=== PATIENT | female | born 1955 | race Caucasian/White ===

== ENCOUNTER → 2017-03-31 | Outpatient (CLI) | payer BC | END | disposition home or self-care (01) | LOC: LABWHC1 12:55 | PROVIDERS: ATTEND Internal Medicine Critical Care Medicine | DX: J45.909 Unspecified asthma, uncomplicated (principal); R06.02 Shortness of breath; R05 Cough | CPT/HCPCS: 36415; 82785; 85008 ==

== ENCOUNTER 2017-04-06 13:40 | Inpatient (IN) | payer BC ==
[2017-04-06] MEDS ORDERED: IPRATROPIUM-ALBUTEROL 3 ML NEB INHALATION STA (15:06)
--- NOTE | 2017-04-06 15:10 | ED ---
SOB HPI - General Source: patient, RN notes reviewed Mode of arrival: ambulatory Limitations: no limitations <José Miguel Blanco - Last Filed: 04/06/17 17:25> <Checo Jarvis - Last Filed: 04/13/17 05:18> - General Chief Complaint: Shortness of Breath Stated Complaint: SOB Time Seen by Provider: 04/06/17 15:01 - History of Present Illness Initial Comments: 62-year-old female presents emergency Department chief complaint shortness breath. Patient did have increasing shortness of breath last week or so. She states that she's had problems with asthma in the past. Patient states she recently saw Dr. Wolf was diagnosed with severe bronchial asthma. Patient states she was given steroid shot, oral steroids and she is on multiple inhalers. She states that she's having more exertional shortness breath. Patient states that she's never had this is in the past. Patient has had history of Hodgkin's lymphoma, breast cancer. Patient had chemo and radiation. Patient denies fever, chills. She states she has had a dry cough. Patient denies any runny nose, sore throat. Patient states she is better at rest. She states she is short of breath even with walking down the hallway. Patient denies any chest pains this time. She has no cardiac history. Patient states she does take a water pill at this time. (José Miguel Blanco) - Related Data Home Medications Medication Instructions Recorded Confirmed ALPRAZolam [Xanax] 0.25 mg PO TID PRN 10/05/16 04/06/17 Budesonide-Formot 160-4.5 Mcg 2 puff INHALATION BID 10/05/16 04/06/17 [Symbicort 160-4.5 Mcg Inhaler] Cetirizine HCl [Zyrtec] 5 mg PO DAILY PRN 10/05/16 04/06/17 Levothyroxine Sodium [Synthroid] 100 mcg PO DAILY 10/05/16 04/06/17 Losartan [Cozaar] 25 mg PO HS 10/05/16 04/06/17 Metoprolol Succinate (ER) [Toprol 25 mg PO DAILY 10/05/16 04/06/17 XL] Montelukast [Singulair] 10 mg PO DAILY 10/05/16 04/06/17 Omeprazole [PriLOSEC] 40 mg PO BID 10/05/16 04/06/17 Sertraline [Zoloft] 100 mg PO DAILY 10/05/16 04/06/17 Simvastatin [Zocor] 40 mg PO HS 10/05/16 04/06/17 buPROPion [Wellbutrin] 300 mg PO DAILY 10/05/16 04/06/17 ARIPiprazole [Abilify] 2 mg PO DAILY 04/06/17 04/06/17 Albuterol Sulfate [Proair Hfa] 2 puff INHALATION Q6HR PRN 04/06/17 04/06/17 Amoxic-Pot Clav 875-125Mg 1 tab PO Q12HR 04/06/17 04/06/17 [Augmentin 875-125] Cyanocobalamin [Vitamin B-12] 500 mcg PO DAILY 04/06/17 04/06/17 Previous Rx's Medication Instructions Recorded Furosemide [Lasix] 20 mg PO DAILY #30 tab 04/08/17 Potassium Chloride ER [K-Dur 10] 10 meq PO DAILY #30 tab 04/08/17 guaiFENesin [Mucinex] 1,200 mg PO Q12HR #10 tablet.er 04/08/17 Allergies Allergy/AdvReac Type Severity Reaction Status Date / Time No Known Allergies Allergy Verified 04/06/17 15:57 Review of Systems ROS Other: All systems not noted in ROS Statement are negative. <José Miguel Blanco - Last Filed: 04/06/17 17:25> ROS Other: All systems not noted in ROS Statement are negative. <Checo Jarivs - Last Filed: 04/13/17 05:18> ROS Statement: Those systems with pertinent positive or pertinent negative responses have been documented in the HPI. Past Medical History Past Medical History: Asthma, Cancer, GERD/Reflux, Hyperlipidemia, Hypertension , Sleep Apnea/CPAP/BIPAP, Thyroid Disorder Additional Past Medical History / Comment(s): Hodgkins Lymphoma; Breast CA History of Any Multi-Drug Resistant Organisms: None Reported Past Surgical History: Adenoidectomy, Breast Surgery, Section, Hysterectomy, Orthopedic Surgery Additional Past Surgical History / Comment(s): Spleenectomy, Lapraotomy. Colonoscopy, EGD, Foot surgery Past Anesthesia/Blood Transfusion Reactions: No Reported Reaction Past Psychological History: Anxiety, Depression Smoking Status: Former smoker Past Alcohol Use History: Rare Past Drug Use History: None Reported - Past Family History Mother Family Medical History: No Reported History <José Miguel Blanco - Last Filed: 04/06/17 17:25> - Past Family History Mother Family Medical History: No Reported History Brother(s) Additional Family Medical History / Comment(s): MS <Checo Jarvis - Last Filed: 04/13/17 05:18> General Exam Limitations: no limitations General appearance: alert, in no apparent distress Head exam: Present: atraumatic, normocephalic, normal inspection ENT exam: Present: normal oropharynx Neck exam: Present: normal inspection, full ROM. Absent: tenderness, meningismus, lymphadenopathy Respiratory exam: Present: wheezes (faint). Absent: normal lung sounds bilaterally, respiratory distress, rales, rhonchi, stridor Cardiovascular Exam: Present: regular rate, normal rhythm, normal heart sounds. Absent: systolic murmur, diastolic murmur, rubs, gallop, clicks Back exam: Absent: CVA tenderness (R), CVA tenderness (L) Neurological exam: Present: alert, oriented X3, CN II-XII intact Skin exam: Present: warm, dry, intact, normal color. Absent: rash <José Miguel Blanco - Last Filed: 04/06/17 17:25> Medical Decision Making - Lab Data Result diagrams: 04/06/17 15:20 04/06/17 15:20 <José Miguel Blanco - Last Filed: 04/06/17 17:25> - Lab Data Result diagrams: 04/08/17 06:21 04/08/17 06:21 <Checo Jarvis - Last Filed: 04/13/17 05:18> - Medical Decision Making I saw this patient in conjunction with the physician credit control assistant. I performed independent history and physical exam. Agree with case management. (Checo Jarvis) - Lab Data Lab Results 04/06/17 04/06/17 04/06/17 Range/Units 15:20 15:20 15:20 WBC 14.6 H (3.8-10.6) k/uL RBC 4.16 (3.80-5.40) m/uL Hgb 11.7 (11.4-16.0) gm/dL Hct 35.6 (34.0-46.0) % MCV 85.6 (80.0-100.0) fL MCH 28.2 (25.0-35.0) pg MCHC 32.9 (31.0-37.0) g/dL RDW 15.3 (11.5-15.5) % Plt Count 480 H (150-450) k/uL Neutrophils % 68 % Lymphocytes % 23 % Monocytes % 6 % Eosinophils % 1 % Basophils % 0 % Neutrophils # 9.9 H (1.3-7.7) k/uL Lymphocytes # 3.3 (1.0-4.8) k/uL Monocytes # 0.9 (0-1.0) k/uL Eosinophils # 0.1 (0-0.7) k/uL Basophils # 0.0 (0-0.2) k/uL PT (9.0-12.0) sec INR (<1.1) APTT (22.0-30.0) sec D-Dimer (<0.60) mg/L FEU Sodium 138 (137-145) mmol/L Potassium 3.9 (3.5-5.1) mmol/L Chloride 100 (98-107) mmol/L Carbon Dioxide 28 (22-30) mmol/L Anion Gap 10 mmol/L BUN 17 (7-17) mg/dL Creatinine 0.70 (0.52-1.04) mg/dL Est GFR (MDRD) Af Amer >60 (>60 ml/min/1.73 sqM) Est GFR (MDRD) Non-Af >60 (>60 ml/min/1.73 sqM) Glucose 84 (74-99) mg/dL Calcium 9.8 (8.4-10.2) mg/dL Magnesium 2.2 (1.6-2.3) mg/dL Total Bilirubin 0.5 (0.2-1.3) mg/dL AST 30 (14-36) U/L ALT 40 (9-52) U/L Alkaline Phosphatase 81 (38-126) U/L Total Creatine Kinase 61 (30-135) U/L CK-MB (CK-2) 1.6 (0.0-2.4) ng/mL CK-MB (CK-2) Rel Index 2.6 Troponin I <0.012 (0.000-0.034) ng/mL NT-Pro-B Natriuret Pep pg/mL Total Protein 6.8 (6.3-8.2) g/dL Albumin 3.9 (3.5-5.0) g/dL 04/06/17 04/06/17 Range/Units 15:20 15:20 WBC (3.8-10.6) k/uL RBC (3.80-5.40) m/uL Hgb (11.4-16.0) gm/dL Hct (34.0-46.0) % MCV (80.0-100.0) fL MCH (25.0-35.0) pg MCHC (31.0-37.0) g/dL RDW (11.5-15.5) % Plt Count (150-450) k/uL Neutrophils % % Lymphocytes % % Monocytes % % Eosinophils % % Basophils % % Neutrophils # (1.3-7.7) k/uL Lymphocytes # (1.0-4.8) k/uL Monocytes # (0-1.0) k/uL Eosinophils # (0-0.7) k/uL Basophils # (0-0.2) k/uL PT 9.7 (9.0-12.0) sec INR 0.9 (<1.1) APTT 22.4 (22.0-30.0) sec D-Dimer 0.65 H (<0.60) mg/L FEU Sodium (137-145) mmol/L Potassium (3.5-5.1) mmol/L Chloride (98-107) mmol/L Carbon Dioxide (22-30) mmol/L Anion Gap mmol/L BUN (7-17) mg/dL Creatinine (0.52-1.04) mg/dL Est GFR (MDRD) Af Amer (>60 ml/min/1.73 sqM) Est GFR (MDRD) Non-Af (>60 ml/min/1.73 sqM) Glucose (74-99) mg/dL Calcium (8.4-10.2) mg/dL Magnesium (1.6-2.3) mg/dL Total Bilirubin (0.2-1.3) mg/dL AST (14-36) U/L ALT (9-52) U/L Alkaline Phosphatase (38-126) U/L Total Creatine Kinase (30-135) U/L CK-MB (CK-2) (0.0-2.4) ng/mL CK-MB (CK-2) Rel Index Troponin I (0.000-0.034) ng/mL NT-Pro-B Natriuret Pep 2010 pg/mL Total Protein (6.3-8.2) g/dL Albumin (3.5-5.0) g/dL 04/06/17 16:45 EKG performed at 15:39 left bundle-branch block normal sinus rhythm with a rate of 93 FL interval 176 QRS duration 154 QT/QTC 42/4-99 (José Miguel Blanco) Disposition <José Miguel Blanco - Last Filed: 04/06/17 17:25> <Checo Jarvis - Last Filed: 04/13/17 05:18> Clinical Impression: Congestive heart failure, Exertional shortness of breath Disposition: ADMITTED IP TO THIS [facility] Condition: Stable
[2017-04-06 15:38] LABS: Basophils % (A) 0 %; CH 28.2; CHCM 33.1; Eosinophils # (A) 0.1 k/uL (0-0.7); Eosinophils % (A) 1 %; HCT 35.6 % (34.0-46.0); HDW 2.84; HGB 11.7 gm/dL (11.4-16.0); Luc # (Auto) 0.26; Luc % (Auto) 2; Lymphocytes # (A) 3.3 k/uL (1.0-4.8); Lymphocytes % (A) 23 %; MCH 28.2 pg (25.0-35.0); MCHC 32.9 g/dL (31.0-37.0); MCV 85.6 fL (80.0-100.0); Mean Platelet Volume 6.3; Monocytes # (A) 0.9 k/uL (0-1.0); Monocytes % (A) 6 %; Neutrophils # (A) 9.9 k/uL (1.3-7.7); Neutrophils % (A) 68 %; RBC 4.16 m/uL (3.80-5.40); RDW 15.3 % (11.5-15.5); WBC 14.6 k/uL (3.8-10.6); WBC (Perox) 14.58
[2017-04-06 15:48] LABS: INR 0.9 (<1.1); Partial Thromboplastin Time 22.4 sec (22.0-30.0); Prothrombin Time 9.7 sec (9.0-12.0)
[2017-04-06 15:55] LABS: ALT 40 U/L (9-52); AST 30 U/L (14-36); Alkaline Phosphatase 81 U/L (38-126); Anion Gap 10 mmol/L; Blood Urea Nitrogen 17 mg/dL (7-17); Calcium 9.8 mg/dL (8.4-10.2); Carbon Dioxide 28 mmol/L (22-30); Chloride 100 mmol/L (98-107); Creatine Kinase 61 U/L (30-135); Glucose 84 mg/dL (74-99); Magnesium 2.2 mg/dL (1.6-2.3); Non-African American GFR(MDRD) >60 (>60 ml/min/1.73 sqM); Potassium 3.9 mmol/L (3.5-5.1); Sodium 138 mmol/L (137-145); Total Bilirubin 0.5 mg/dL (0.2-1.3); Total Protein 6.8 g/dL (6.3-8.2)
[2017-04-06] MEDS ORDERED: RX INFO: IV CONTRAST WAS GIVEN 1 EACH MISC MISCELLANE PRN (15:58)
[2017-04-06 16:08] LABS: Creatine Kinase MB 1.6 ng/mL (0.0-2.4); Troponin I <0.012 ng/mL (0.000-0.034)
--- NOTE | 2017-04-06 16:11 | XR ---
EXAMINATION TYPE: XR chest 2V DATE OF EXAM: 04/06/2017 4:06 PM COMPARISON: 05/11/2016 HISTORY: 62-year-old female with shortness of breath, difficulty breathing. Technologist provides add itional history of lung scar tissue from Hodgkin's disease. TECHNIQUE: PA and lateral views FINDINGS: The heart remains upper limits of normal in size. As regards calcifications. Calcified mediastinal, subcarinal, and hilar lymph nodes are redemonstrate d and could reflect prior granulomatous disease or treated lymphoma. Diffuse interstitial prominence is unchanged. Surgical clips in the left upper quadrant. No consolidation or pleural effusion. IMPRESSION: 1. Calcified mediastinal and hilar lymph nodes code reflect prior granulomatous disease or treated ly mphoma. 2. There are chronic parenchymal changes without acute process seen. Given the interstitial prominenc e and patient's symptoms, correlate to exclude mild CHF.
--- NOTE | 2017-04-06 16:41 | CT ---
EXAMINATION TYPE: CT chest angio for PE DATE OF EXAM: 04/06/2017 4:20 PM COMPARISON: 01/01/2011 HISTORY: 62-year-old female with left sided chest pain and Shortness of breath. History from prior re port states Hodgkin's lymphoma and left-sided breast cancer. TECHNIQUE: Contiguous axial scanning of the chest performed with IV Contrast, patient injected with 1 00 mL of Omnipaque 300. Coronal and sagittal MIP reconstructions performed. CT DLP: 352.4 mGycm Automated exposure control for dose reduction was used. FINDINGS: The patient's right-sided subpectoral implant is collapsed. Left-sided breast prosthesis redemonstrat ed. Heart is upper limits of normal in size with trace basilar pericardial fluid. Coronary vessel calcifi cations are present in remarkable for coronary artery disease. Mild atherosclerotic arch calcifications with bovine configuration to the aortic arch. There is satisfactory opacification of the pulmonary tail system, there is respiratory motion limitin g the exam. No large central or lobar pulmonary embolus. No definite pulmonary embolus to the segment al level. Diffuse interstitial prominence with bronchial wall thickening and some cicatricial atelectasis along the left suprahilar region. Volume loss and focal opacity superior segment left lower lobe unchange d from 2011 suggesting scarring, possible posttreatment change relating to the radiation port. 8 mm left apical pulmonary nodule was present on the 2011 exam but measured only 5 mm at that time. A 4 mm subpleural pulmonary nodule peripheral left upper lobe axial image 26 not clearly seen on prio r exam. Additional scattered pulmonary nodules measuring up to 8 mm are unchanged. Some patchy medial bibasilar areas of groundglass are increased in the interval. Calcified granulomas within the mediastinum and right hilum. Small paraesophageal lymph nodes measure up to 8 mm, axial image 86 but are increased from 2011 as ar e left para-aortic lymph nodes currently measuring 8 mm versus 6 monitors, previously. Visualized upper abdomen show surgical clips along the left upper quadrant. Bones: No osseous destructive process. IMPRESSION: 1. SOME RESPIRATORY MOTION LIMITING THE EVALUATION. NO DEFINITE PULMONARY EMBOLUS TO THE SEGMENTAL LE MATHEW. 2. INCREASING PATCHY MEDIAL BIBASILAR OPACITIES. CORRELATE FOR POSSIBLE ETIOLOGIES SUCH PROGRESSIV E FIBROSIS FROM 2011 VERSUS ACUTE PNEUMONITIS. 3. SCATTERED PULMONARY NODULES MEASURING UP TO 8 MM, MOST OF WHICH ARE STABLE. AN 8 MM LEFT APICAL PU LMONARY NODULE IS INCREASED IN SIZE PREVIOUSLY MEASURING 5 MM IN 2011 AND A 4 MM SUBPLEURAL PULMONARY NODULE IN THE LEFT UPPER LOBE MAY BE NEW. 3. A COUPLE PROMINENT LYMPH NODES IN THE POSTERIOR MEDIASTINUM, PARAESOPHAGEAL AND PARAAORTIC REGION MEASURE UP TO 8 MM AND ARE SLIGHTLY INCREASED IN SIZE. 4. THESE CAN BE REASSESSED AT 6 MONTH FOLLOW-UP. 5. OTHER CHRONIC PARENCHYMAL CHANGES, SUSPECTED CHRONIC BRONCHITIS/ASTHMA AND POSTTREATMENT CHANGE IS REDEMONSTRATED. 6. COLLAPSED RIGHT BREAST IMPLANT.
--- NOTE | 2017-04-06 16:49 | US ---
EXAMINATION TYPE: US extremity nonvasc mass LT DATE OF EXAM: 04/06/2017 4:30 PM COMPARISON: NONE CLINICAL HISTORY: 62-year-old female with swelling at the left antecubital fossa. Steroid shot given in left arm, not at area of interest. TECHNIQUE: Targeted sonographic examination at the site of clinical symptoms left antecubital space. FINDINGS: Terminal Block Assembler notes: Soft tissue tissue swelling in Left antecubital space. Patent basilic and other ve ssels identified, no mass effect seen. No indication of clot in area, soft tissue swelling shows no r edness and is not painful. No specific abnormality identified IMPRESSION: Targeted scanning in the left antecubital fossa at the site of swelling shows no specific sonographic abnormality. Follow-up can be considered if symptoms worsen.
[2017-04-06] MEDS ORDERED: ALBUTEROL NEBULIZED 2.5 MG/3 ML INHALATION PRN (17:28)
[2017-04-06] MEDS ORDERED: FUROSEMIDE 10 MG/ML 4 ML VIAL IV STA (17:28)
[2017-04-06] MEDS ORDERED: LORATADINE 10 MG TAB PO PRN (17:28)
[2017-04-06] MEDS: SYMBICORT 160-4.5 MCG INHALER INHALATION SCH (21:39)
[2017-04-06] MEDS: ATORVASTATIN 20 MG TAB PO SCH (22:58)
[2017-04-06] MEDS: LOSARTAN 25 MG TAB PO SCH (22:58)
[2017-04-06] MEDS: PANTOPRAZOLE 40 MG TABLET PO SCH (22:58)
[2017-04-07] MEDS: FUROSEMIDE 10 MG/ML 4 ML VIAL IV SCH ×2 (06:38→17:45)
[2017-04-07] MEDS: LEVOTHYROXINE 100 MCG TAB PO SCH (06:38)
[2017-04-07 07:46] LABS: Basophils # (A) 0.1 k/uL (0-0.2); Basophils % (A) 1 %; CH 27.4; CHCM 31.1; Eosinophils # (A) 0.3 k/uL (0-0.7); Eosinophils % (A) 3 %; HCT 37.9 % (34.0-46.0); HDW 2.65; HGB 12.2 gm/dL (11.4-16.0); Hypochromasia Slight; Luc # (Auto) 0.31; Luc % (Auto) 3; Lymphocytes % (A) 31 %; MCH 28.5 pg (25.0-35.0); MCHC 32.2 g/dL (31.0-37.0); MCV 88.4 fL (80.0-100.0); Mean Platelet Volume 6.6; Monocytes # (A) 0.7 k/uL (0-1.0); Monocytes % (A) 6 %; Neutrophils # (A) 7.2 k/uL (1.3-7.7); Neutrophils % (A) 57 %; RBC 4.29 m/uL (3.80-5.40); RDW 15.5 % (11.5-15.5); WBC 12.6 k/uL (3.8-10.6); WBC (Perox) 12.91
[2017-04-07 07:58] LABS: Anion Gap 13 mmol/L; Calcium 9.3 mg/dL (8.4-10.2); Carbon Dioxide 27 mmol/L (22-30); Chloride 99 mmol/L (98-107); Glucose 92 mg/dL (74-99); Non-African American GFR(MDRD) >60 (>60 ml/min/1.73 sqM); Sodium 139 mmol/L (137-145)
[2017-04-07] MEDS: SYMBICORT 160-4.5 MCG INHALER INHALATION SCH ×2 (07:59→21:09)
[2017-04-07 08:02] LABS: Blood Urea Nitrogen 16 mg/dL (7-17); Potassium 4.9 mmol/L (3.5-5.1)
[2017-04-07] MEDS: MONTELUKAST 10 MG TAB PO SCH (08:55)
[2017-04-07] MEDS: ALPRAZolam 0.25 MG TAB PO PRN ×2 (08:55→21:02)
[2017-04-07] MEDS: METOPROLOL SUCCINATE (ER) 25 MG TAB.ER.24H PO SCH (08:56)
[2017-04-07] MEDS: PANTOPRAZOLE 40 MG TABLET PO SCH ×2 (08:56→21:03)
[2017-04-07] MEDS: CYANOCOBALAMIN 500 MCG TAB PO SCH (08:56)
[2017-04-07] MEDS: SERTRALINE 100 MG TAB PO SCH (08:57)
[2017-04-07] MEDS: buPROPion XL 300 MG TAB.ER.24H PO SCH (09:53)
[2017-04-07 10:06] VITALS: BMI 30.2
[2017-04-07] MEDS ORDERED: IPRATROPIUM-ALBUTEROL 3 ML NEB INHALATION PRN (12:00)
--- NOTE | 2017-04-07 12:12 | P.HPIM ---
History of Present Illness H&P Date: 04/07/17 Chief Complaint: worsening shortness of breath this is a 62-year-old female with a known past medical history of asthma, Hodgkin's lymphoma, breast cancer with mastectomy, obstructive sleep apnea, cardiomyopathy, hypertension, hyperlipidemia and hypothyroidism. Patient reports having worsening shortness of breath over the last couple weeks. She was seen by her pack worker supervisor and started on Augmentin and prednisone for bronchitis and asthma exacerbation. Over the last couple a days she continued to have worsening shortness of breath noted that she was having difficulty talking during conversation because of her shortness of breath. She came into the emergency room for further evaluation and treatment she was noted to have elevated d-dimer CTA of the chest was negative for PE. It did show increasing patchy medial by basilar opacities to correlate for possible progressive fibrosis versus acute pneumonitis. There is also scattered pulmonary nodules measuring up to 8 mm most of which are stable. Also occult couple prominent lymph nodes in the posterior mediastinum. Both pulmonary and cardiology services have been consulted. Patient also was noted to have evidence of an acute CHF exacerbation BNP level was 2010 she was started on IV Lasix 40 mg every 12 hours. She also had some swelling in the left arm ultrasound of the arm was done and was found to be negative. Patient has noted some improvement in her breathing after the Lasix. She is still having a mild cough which is productive at times. She denies any fevers chills or sweats. Denies any nausea or vomiting denies any chest pain. Denies any bowel movement changes or urinary symptoms.she's been admitted to the hospital for CHF exacerbation Review of Systems physical HPI otherwise unremarkable Past Medical History Past Medical History: Asthma, Cancer, GERD/Reflux, Hyperlipidemia, Hypertension , Sleep Apnea/CPAP/BIPAP, Thyroid Disorder Additional Past Medical History / Comment(s): Hodgkins Lymphomastatus post chemo and radiation 1978; Breast CAstatus post mastectomy History of Any Multi-Drug Resistant Organisms: None Reported Past Surgical History: Adenoidectomy, Breast Surgery, Section, Hysterectomy, Orthopedic Surgery Additional Past Surgical History / Comment(s): Spleenectomy, Lapraotomy. Colonoscopy, EGD, Foot surgery, breast reconstruction Past Anesthesia/Blood Transfusion Reactions: No Reported Reaction Past Psychological History: Anxiety, Depression Smoking Status: Former smoker Past Alcohol Use History: Rare Past Drug Use History: None Reported - Past Family History Mother Family Medical History: No Reported History Brother(s) Additional Family Medical History / Comment(s): MS Medications and Allergies Home Medications Medication Instructions Recorded Confirmed Type ALPRAZolam [Xanax] 0.25 mg PO TID PRN 10/05/16 04/06/17 History Budesonide-Formot 160-4.5 Mcg 2 puff INHALATION BID 10/05/16 04/06/17 History [Symbicort 160-4.5 Mcg Inhaler] Cetirizine HCl [Zyrtec] 5 mg PO DAILY PRN 10/05/16 04/06/17 History Levothyroxine Sodium [Synthroid] 100 mcg PO DAILY 10/05/16 04/06/17 History Losartan [Cozaar] 25 mg PO HS 10/05/16 04/06/17 History Metoprolol Succinate (ER) [Toprol 25 mg PO DAILY 10/05/16 04/06/17 History Xl] Montelukast [Singulair] 10 mg PO DAILY 10/05/16 04/06/17 History Omeprazole [PriLOSEC] 40 mg PO BID 10/05/16 04/06/17 History Sertraline [Zoloft] 100 mg PO DAILY 10/05/16 04/06/17 History Simvastatin [Zocor] 40 mg PO HS 10/05/16 04/06/17 History buPROPion [Wellbutrin] 300 mg PO DAILY 10/05/16 04/06/17 History ARIPiprazole [Abilify] 2 mg PO DAILY 04/06/17 04/06/17 History Albuterol Sulfate [Proair Hfa] 2 puff INHALATION Q6HR PRN 04/06/17 04/06/17 History Amoxic-Pot Clav 875-125Mg 1 tab PO Q12HR 04/06/17 04/06/17 History [Augmentin 875-125] Cyanocobalamin [Vitamin B-12] 500 mcg PO DAILY 04/06/17 04/06/17 History Allergies Allergy/AdvReac Type Severity Reaction Status Date / Time No Known Allergies Allergy Verified 04/06/17 15:57 Physical Exam Vitals: Vital Signs Temp Pulse Pulse Resp BP BP Pulse Ox 04/07/17 11:32 97.3 F L 92 18 104/59 97 04/07/17 08:00 97.3 F L 100 18 115/61 95 04/07/17 03:20 97.5 F L 89 18 98/55 93 L 04/06/17 23:00 97.0 F L 98 18 97/50 95 04/06/17 20:30 97.9 F 92 18 110/51 95 04/06/17 20:11 97.8 F 96 18 137/65 96 Intake and Output 04/06/17 04/07/17 04/07/17 22:59 06:59 14:59 Intake Total 480 Output Total 440 773 1833 Balance -300 200 -1520 Intake: Oral 480 Output: Urine 385 801 9550 Other: Voiding Method Toilet # Voids 1 Weight 82 kg 80 kg 80 kg Patient Weight 04/08/17 06:59 Weight 80 kg Head normocephalic Neck supple Lungs clear to auscultation bilaterally no wheezing or crackles Heart regular rate and rhythm S1-S2, no rub or gallop Abdomen is soft nontender nondistended positive bowel sounds no hepatosplenomegaly Extremities no edema Neuro alert and orientated to 3 Results CBC & Chem 7: 04/07/17 07:20 04/07/17 07:20 Labs: Abnormal Lab Results - Last 24 Hours (Table) 04/07/17 Range/Units 07:20 WBC 12.6 H (3.8-10.6) k/uL Plt Count 475 H (150-450) k/uL Thrombosis Risk Factor Assmnt - Choose All That Apply Any of the Below Risk Factors Present?: Yes Each Factor Represents 1 point: Heart failure (<1month) Other Risk Factors: Yes Each Risk Factor Represents 2 Points: Age 61-74 years Thrombosis Risk Factor Assessment Total Risk Factor Score: 3 Thrombosis Risk Factor Assessment Level: Moderate Risk Assessment and Plan Plan: 1. Shortness of breath: Possibly related to congestive heart failure. However , CTA had shown increasing patchy medial bibasilar opacities to correlate for progressive fibrosis versus acute pneumonitis. Pulmonary service will be consulted. CTA negative for PE 2. Acute CHF exacerbation: Check echo. Continue IV Lasix 40 every 12 hours. Cardiology consulted. BNP 2009 3. recent bronchitis and asthma exacerbation. Has started antibiotic treatment outpatient. We'll resume her Augmentin and prednisone. Consult pulmonary service 4. History of Hodgkin's lymphoma completed chemo and radiation treatment 1978 5. History of breast cancer status post mastectomy 6. History of persistent asthma with recent exacerbation continue her prednisone taper. Resume her nebulizer treatments 7.essential hypertension continue her home medications 8. Hypothyroidism resume Synthroid 9. Hyperlipidemia continue Lipitor 10. Elevated platelets trending down continue to monitor GI prophylaxis Protonix and DVT prophylaxis Lovenox Time with Patient: Greater than 30 (Greater than 50% of the total time spent in counseling and coordination of care.I performed an examination of the patient and discussed their management with the physician Hybrid Corn Breeder. I have reviewed the Physician Hybrid Corn Breeder's notes and agree with the documented findings and plan of care)
[2017-04-07] MEDS: predniSONE 10 MG TAB PO SCH (12:41)
[2017-04-07] MEDS: ARIPiprazole 2 MG TAB PO SCH (12:41)
[2017-04-07] MEDS: IPRATROPIUM-ALBUTEROL 3 ML NEB INHALATION SCH ×3 (12:58→21:09)
--- NOTE | 2017-04-07 14:23 | P.CRDCN ---
History of Present Illness Consult date: 04/07/17 Requesting physician: Carly Doe Consult reason: shortness of breath Chief complaint: Progressively worsening shortness of breath History of present illness: This is a 62-year-old female who follows regularly with Dr. Jasso in the office. She has a known history of hyperlipidemia, nonischemic cardiomyopathy, hyperlipidemia, hypothyroidism, history of breast CA with prior mastectomy, aortic valve insufficiency, nonrheumatic, straight of Hodgkin's lymphoma and asthma. Patient presents to the hospital with symptoms of progressively worsening shortness of breath. She states that she had gone to see Dr. Archuleta as an outpatient, was initiated on antibiotics as well as steroids. She states in spite of that she progressively continued to get more and more short of breath even to the point where she couldn't speak long sentences without becoming extremely short of breath. X-ray was performed which revealed calcified mediastinal and hilar lymph nodes which could reflect prior granulomatous disease or treated lymphoma. There are chronic parenchymal changes without any acute process. Correlate to exclude mild congestive heart failure. CAT scan of the chest was performed which did not reveal evidence of a pulmonary embolism. Increasing patchy medial bibasilar obesities correlate for possible progressive fibrosis. Scattered pulmonary nodules measuring up to 8 mm, most of which are stable, an 8 mm left apical pulmonary nodule is increased in size previously measuring 5 mm in 2011 and 4 mm subpleural pulmonary nodule in the left upper lobe which may be new. A couple prominent lymph nodes in the posterior mediastinotomy noted. Paraesophageal and. Aortic measuring up to 8 mm slightly increased in size from previous. Venous duplex of the left antecubital negative for thrombus. Blood cell count 14.6, hemoglobin 11.7, d-dimer 0.6, potassium 4.9, BUN 16, creatinine 0.6. Mag level 2.2, troponin 0.012, BNP 2010. Blood pressure 108/56 with a heart rate in the 90s. Past Medical History Past Medical History: Asthma, Cancer, GERD/Reflux, Hyperlipidemia, Hypertension , Sleep Apnea/CPAP/BIPAP, Thyroid Disorder Additional Past Medical History / Comment(s): Hodgkins Lymphomastatus post chemo and radiation 1978; Breast CAstatus post mastectomy History of Any Multi-Drug Resistant Organisms: None Reported Past Surgical History: Adenoidectomy, Breast Surgery, Section, Hysterectomy, Orthopedic Surgery Additional Past Surgical History / Comment(s): Spleenectomy, Lapraotomy. Colonoscopy, EGD, Foot surgery, breast reconstruction Past Anesthesia/Blood Transfusion Reactions: No Reported Reaction Past Psychological History: Anxiety, Depression Smoking Status: Former smoker Past Alcohol Use History: Rare Past Drug Use History: None Reported - Past Family History Mother Family Medical History: No Reported History Brother(s) Additional Family Medical History / Comment(s): MS Medications and Allergies Home Medications Medication Instructions Recorded Confirmed Type ALPRAZolam [Xanax] 0.25 mg PO TID PRN 10/05/16 04/06/17 History Budesonide-Formot 160-4.5 Mcg 2 puff INHALATION BID 10/05/16 04/06/17 History [Symbicort 160-4.5 Mcg Inhaler] Cetirizine HCl [Zyrtec] 5 mg PO DAILY PRN 10/05/16 04/06/17 History Levothyroxine Sodium [Synthroid] 100 mcg PO DAILY 10/05/16 04/06/17 History Losartan [Cozaar] 25 mg PO HS 10/05/16 04/06/17 History Metoprolol Succinate (ER) [Toprol 25 mg PO DAILY 10/05/16 04/06/17 History Xl] Montelukast [Singulair] 10 mg PO DAILY 10/05/16 04/06/17 History Omeprazole [PriLOSEC] 40 mg PO BID 10/05/16 04/06/17 History Sertraline [Zoloft] 100 mg PO DAILY 10/05/16 04/06/17 History Simvastatin [Zocor] 40 mg PO HS 10/05/16 04/06/17 History buPROPion [Wellbutrin] 300 mg PO DAILY 10/05/16 04/06/17 History ARIPiprazole [Abilify] 2 mg PO DAILY 04/06/17 04/06/17 History Albuterol Sulfate [Proair Hfa] 2 puff INHALATION Q6HR PRN 04/06/17 04/06/17 History Amoxic-Pot Clav 875-125Mg 1 tab PO Q12HR 04/06/17 04/06/17 History [Augmentin 875-125] Cyanocobalamin [Vitamin B-12] 500 mcg PO DAILY 04/06/17 04/06/17 History Allergies Allergy/AdvReac Type Severity Reaction Status Date / Time No Known Allergies Allergy Verified 04/06/17 15:57 Physical Exam Vitals: Vital Signs Temp Pulse Pulse Resp BP BP Pulse Ox 04/07/17 13:16 94 04/07/17 12:58 96 18 04/07/17 11:32 97.3 F L 92 18 104/59 97 04/07/17 08:00 97.3 F L 100 18 115/61 95 04/07/17 03:20 97.5 F L 89 18 98/55 93 L 04/06/17 23:00 97.0 F L 98 18 97/50 95 04/06/17 20:30 97.9 F 92 18 110/51 95 04/06/17 20:11 97.8 F 96 18 137/65 96 Intake and Output 04/06/17 04/07/17 04/07/17 22:59 06:59 14:59 Intake Total 480 Output Total 614 344 5252 Balance -300 200 -1520 Intake: Oral 480 Output: Urine 048 882 1768 Other: Voiding Method Toilet # Voids 1 Weight 82 kg 80 kg 80 kg Patient Weight 04/08/17 06:59 Weight 80 kg PHYSICAL EXAMINATION: HEENT: Head is atraumatic, normocephalic. Pupils equal, round. Neck is supple. There is elevated jugular venous pressure. HEART EXAMINATION: Heart S1 and S2 systolic ejection murmur is heard, diastolic murmur also heard at the base. CHEST EXAMINATION: Lungs are clear with diminished air entry to bilateral bases. ABDOMEN: Soft, nontender. Bowel sounds are heard. No organomegaly noted. EXTREMITIES: 2+ peripheral pulses with trace evidence of peripheral edema and no calf tenderness noted. NEUROLOGIC patient is awake, alert and oriented -3. . Results 04/07/17 07:20 04/07/17 07:20 CBC 04/07/17 Range/Units 07:20 WBC 12.6 H (3.8-10.6) k/uL RBC 4.29 (3.80-5.40) m/uL Hgb 12.2 (11.4-16.0) gm/dL Hct 37.9 (34.0-46.0) % Plt Count 475 H (150-450) k/uL Comprehensive Metabolic Panel 04/07/17 Range/Units 07:20 Sodium 139 (137-145) mmol/L Potassium 4.9 (3.5-5.1) mmol/L Chloride 99 (98-107) mmol/L Carbon Dioxide 27 (22-30) mmol/L BUN 16 (7-17) mg/dL Creatinine 0.65 (0.52-1.04) mg/dL Glucose 92 (74-99) mg/dL Calcium 9.3 (8.4-10.2) mg/dL Current Medications Generic Name Dose Route Start Last Admin Trade Name Freq PRN Reason Stop Dose Admin Albuterol/Ipratropium 3 ml 04/07/17 12:15 04/07/17 12:58 Duoneb 0.5 Mg-3 Mg/3 Ml Soln INHALATION 3 ml RT-QID ERICA Administration Albuterol/Ipratropium 3 ml 04/07/17 12:00 Duoneb 0.5 Mg-3 Mg/3 Ml Soln INHALATION RT-Q2H PRN Shortness Of Breath Or Wheezing Alprazolam 0.25 mg 04/06/17 17:28 04/07/17 08:55 Xanax PO 0.25 mg TID PRN Administration Anxiety Amoxicillin/Clavulanate Potassium 1 each 04/07/17 21:00 Augmentin 875-125 PO Q12HR ERICA Aripiprazole 2 mg 04/07/17 12:00 04/07/17 12:41 Abilify PO 2 mg DAILY ERICA Administration Atorvastatin Calcium 20 mg 04/06/17 21:00 04/06/17 22:58 Lipitor PO 20 mg HS ERICA Administration Budesonide/Formoterol Fumarate 2 puff 04/06/17 20:00 04/07/17 07:59 Symbicort 160-4.5 Mcg Inhaler INHALATION 2 puff RT-BID ERICA Administration Bupropion HCl 300 mg 04/07/17 09:00 04/07/17 09:53 Wellbutrin Xl PO 300 mg DAILY ERICA Administration Cyanocobalamin 500 mcg 04/07/17 09:00 04/07/17 08:56 Vitamin B-12 PO 500 mcg DAILY ERICA Administration Enoxaparin Sodium 40 mg 04/08/17 09:00 Lovenox SQ DAILY ERICA Furosemide 40 mg 04/07/17 06:00 04/07/17 06:38 Lasix IV 40 mg Q12H ERICA Administration Levothyroxine Sodium 100 mcg 04/07/17 06:30 04/07/17 06:38 Synthroid PO 100 mcg 0630 ERICA Administration Loratadine 10 mg 04/06/17 17:28 04/07/17 09:53 Claritin PO 10 mg DAILY PRN Administration Allergy Symptoms Losartan Potassium 25 mg 04/06/17 21:00 04/06/17 22:58 Cozaar PO Not Given HS ERICA Metoprolol Succinate 25 mg 04/07/17 09:00 04/07/17 08:56 Toprol Xl PO 25 mg DAILY ERICA Administration Miscellaneous Information 1 each 04/06/17 15:58 Rx Info: Iv Contrast Was Given MISCELLANE 04/08/17 15:58 DAILY PRN Per Protocol Montelukast Sodium 10 mg 04/07/17 09:00 04/07/17 08:55 Singulair PO 10 mg DAILY ERICA Administration Pantoprazole Sodium 40 mg 04/06/17 21:00 04/07/17 08:56 Protonix PO 40 mg BID ERICA Administration Prednisone 30 mg 04/07/17 12:00 04/07/17 12:41 PO 30 mg DAILY ERICA Administration Sertraline HCl 100 mg 04/07/17 09:00 04/07/17 08:57 Zoloft PO 100 mg DAILY ERICA Administration Intake and Output 04/06/17 04/07/17 04/07/17 22:59 06:59 14:59 Intake Total 480 Output Total 496 126 1235 Balance -300 -200 -1520 Intake: Oral 480 Output: Urine 080 728 4886 Other: Voiding Method Toilet # Voids 1 Weight 82 kg 80 kg 80 kg Patient Weight 04/08/17 06:59 Weight 80 kg 04/07/17 07:20 04/07/17 07:20 EKG Interpretations (text) EKG shows a normal sinus rhythm with a left bundle-branch block pattern. Assessment and Plan Plan: Assessment and plan #1 diastolic congestive heart failure acute #2 exacerbation of asthma #3 history of Hodgkin's lymphoma #4 history of breast CA #5 edema #6 nonischemic cardiomyopathy #7 hypothyroidism #8 aortic insufficiency, nonrheumatic Plan We'll repeat an echocardiogram with Doppler study. Continue current dose of IV Lasix, monitoring intake and output along with daily weights. Further recommendations to follow. DNP note has been reviewed, I agree with a documented findings and plan of care. Patient was seen and examined.
--- NOTE | 2017-04-07 16:50 | CONS ---
DATE OF CONSULTATION: This is a 62-year-old female who I saw actually last week in the office for an asthma exacerbation. The patient apparently was treated by me with a Depo-Medrol shot and some prednisone and some antibiotics. She actually states that she maybe felt a little bit worse afterwards. She presented to the emergency room yesterday with complaints of increasing shortness of breath. The patient has a bit of a cough. Not producing any phlegm. She was told in the ER that she might have some heart failure. She was seen by cardiology who stated she did not have a heart attack and did not think that she had heart failure. The patient states she is feeling a bit better today., Looks very, very stable. Anyway, the patient called the office apparently, this week and Dr. Salcedo told her to go straight to the ER. The patient has a history of Hodgkin's lymphoma and breast cancer. She has a history of previous chemo and radiation for same. Anyway, the patient is feeling much improved today. Her medications include: 1. Xanax. 2. Symbicort. 3. Zyrtec. 4. Synthroid. 5. Cozaar. 6. Metoprolol. 7. Singulair. 8. Prilosec. 9. Zoloft. 10. Zocor. 11. Wellbutrin. 12. Albuterol inhaler. 13. Augmentin. 14. Vitamin B12. ALLERGIES: Denied. Medical history includes asthma, breast cancer, Hodgkin's lymphoma, gastroesophageal reflux disease, hyperlipidemia, hypertension, sleep apnea, hypothyroidism. She also has a history of Hodgkin's lymphoma. Surgical history includes some orthopedic procedures, breast implant, adenoidectomy, , hysterectomy, laparotomy, splenectomy, colonoscopy, EGD. Social history is positive for previous tobacco use. She uses alcohol very rarely. No illicit drug use. Family history is noncontributory. REVIEW OF SYSTEMS: CONSTITUTIONAL: Negative. NEUROLOGICAL: Negative. HEENT: Negative. CARDIOVASCULAR: Negative. PULMONARY: Shortness of breath. GI/: Negative. Rheumatological/immunologic: Negative. ENDOCRINOLOGIC: Dermatologic: Negative. Current vital signs temperature 97.3, heart rate 86, respiratory rate 18, blood 104/59, mean 74, room air saturation 97%. She is sitting at the head of bed. No acute distress at all. HEENT examination is grossly unremarkable. Mucous membranes are moist. No oral lesions. Neck is supple. Full range of motion. No adenopathy or thyromegaly. Cardiovascular examination rhythm and rate. S1, S2 normal. No murmur. No S3, S4. Lungs reveal mostly clear breath sounds. I really do not hear much in the way of adventitious lung sounds at all. As I recall, she had significant wheezing when I saw her in the office. No crackles. ABDOMEN: Soft. Bowel sounds are heard. EXTREMITIES: Intact. No cyanosis, clubbing or edema. Skin is without rash. NEUROLOGICAL: Nonfocal. Labs are reviewed. White count 12.6. Hemoglobin and hematocrit normal, platelet count 475,000. PT, INR, PTT normal. D-dimer 0.65. Electrolytes all normal. Troponin was negative and a B-type natriuretic peptide is 2010, which is mildly elevated. Medications are reviewed. She is on appropriate medication. No microbiology. ASSESSMENT: 1. Shortness of breath, secondary to recent asthma exacerbation. 2. Possible mild congestive heart failure. 3. Multiple pulmonary nodules all of which have a relatively benign or chronic in nature, which would be evaluated by follow-up CT scan. 4. Multiple other mostly insignificant findings on CT scan. 5. Hyperlipidemia. 6. Hypothyroidism. 7. History of sleep apnea. 8. Gastroesophageal reflux disease. 9. Breast cancer. 10. Hodgkin's lymphoma. PLAN: I will continue to follow. No additional recommendations are made. From the pulmonary standpoint, she is doing much better. She seemed to think that she got worse, but I think maybe it was that she was doing too much initially and maybe felt worse. Currently lungs are clear and sounding much better than they were last week in the office. We will continue to follow. No additional recommendations are made. She is being currently evaluated. We will have to follow up with many of the CT abnormalities and a repeat CT scan in 4 for [address] We will await cardiology's input as to their overall plan.
[2017-04-07] MEDS: LOSARTAN 25 MG TAB PO SCH (21:02)
[2017-04-07] MEDS: AMOXIC-POT CLAV 875-125MG 1 EACH TAB PO SCH (21:02)
[2017-04-07] MEDS: ATORVASTATIN 20 MG TAB PO SCH (21:02)
[2017-04-08] MEDS: FUROSEMIDE 10 MG/ML 4 ML VIAL IV SCH (06:01)
[2017-04-08] MEDS: PANTOPRAZOLE 40 MG TABLET PO SCH (06:11)
[2017-04-08] MEDS: LEVOTHYROXINE 100 MCG TAB PO SCH (06:11)
[2017-04-08 06:47] LABS: Basophils % (A) 0 %; CH 27.9; CHCM 32.7; Eosinophils # (A) 0.1 k/uL (0-0.7); Eosinophils % (A) 1 %; HCT 39.3 % (34.0-46.0); HDW 2.73; HGB 12.7 gm/dL (11.4-16.0); Luc # (Auto) 0.19; Luc % (Auto) 1; Lymphocytes % (A) 15 %; MCH 27.8 pg (25.0-35.0); MCHC 32.4 g/dL (31.0-37.0); MCV 85.7 fL (80.0-100.0); Mean Platelet Volume 6.3; Monocytes # (A) 0.8 k/uL (0-1.0); Monocytes % (A) 4 %; Neutrophils # (A) 15.7 k/uL (1.3-7.7); Neutrophils % (A) 79 %; RBC 4.58 m/uL (3.80-5.40); RDW 15.3 % (11.5-15.5); WBC 19.8 k/uL (3.8-10.6); WBC (Perox) 20.26
[2017-04-08 06:56] LABS: ALT 30 U/L (9-52); AST 25 U/L (14-36); Alkaline Phosphatase 79 U/L (38-126); Anion Gap 13 mmol/L; Blood Urea Nitrogen 20 mg/dL (7-17); Calcium 9.9 mg/dL (8.4-10.2); Carbon Dioxide 30 mmol/L (22-30); Chloride 95 mmol/L (98-107); Glucose 102 mg/dL (74-99); Non-African American GFR(MDRD) >60 (>60 ml/min/1.73 sqM); Potassium 4.1 mmol/L (3.5-5.1); Sodium 138 mmol/L (137-145); Total Bilirubin 0.6 mg/dL (0.2-1.3); Total Protein 7.6 g/dL (6.3-8.2)
[2017-04-08] MEDS ORDERED: ENOXAPARIN 40 MG/0.4 ML SYRINGE SQ SCH (09:00)
[2017-04-08] MEDS: CYANOCOBALAMIN 500 MCG TAB PO SCH (09:37)
[2017-04-08] MEDS: predniSONE 10 MG TAB PO SCH (09:37)
[2017-04-08] MEDS: ARIPiprazole 2 MG TAB PO SCH (09:37)
[2017-04-08] MEDS: AMOXIC-POT CLAV 875-125MG 1 EACH TAB PO SCH (09:37)
[2017-04-08] MEDS: MONTELUKAST 10 MG TAB PO SCH (09:37)
[2017-04-08] MEDS: SERTRALINE 100 MG TAB PO SCH (09:37)
[2017-04-08] MEDS: buPROPion XL 300 MG TAB.ER.24H PO SCH (09:38)
[2017-04-08] MEDS: METOPROLOL SUCCINATE (ER) 25 MG TAB.ER.24H PO SCH (09:38)
[2017-04-08] MEDS: IPRATROPIUM-ALBUTEROL 3 ML NEB INHALATION SCH ×3 (09:42→17:46)
[2017-04-08] MEDS: SYMBICORT 160-4.5 MCG INHALER INHALATION SCH (09:42)
--- NOTE | 2017-04-08 10:18 | ECHOF ---
Referral Reason:check EF MEASUREMENTS -------- HEIGHT: 162.6 cm WEIGHT: 79.8 kg BP: 104/59 IVSd: 1.1 cm (0.6 - 1.1) LVIDd: 4.1 cm (3.9 - 5.3) LVPWd: 1.0 cm (0.6 - 1.1) IVSs: 1.7 cm LVIDs: 2.6 cm LVPWs: 1.5 cm LAESV Index (A-L): 22.70 ml/m Ao Diam: 2.3 cm (2.0 - 3.7) AV Cusp: 1.1 cm (1.5 - 2.6) LA Diam: 3.7 cm (2.7 - 3.8) MV E Benjamin: 1.55 m/s MV DecT: 299 ms MV A Benjamin: 1.56 m/s MV E/A Ratio: 0.99 AV maxP.21 mmHg AV meanP.80 mmHg AR PHT: 214 ms RAP: 5.00 mmHg RVSP: 45.14 mmHg FINDINGS -------- Sinus rhythm. This was a technically difficult study with suboptimal views. Left ventricular wall thickness is normal. Overall left ventricular systolic function is normal with, an EF between 55 - 60 %. The right ventricle is normal in size and function. Normal LA size by volume 22+/-6 ml/m2. The right atrium is normal in size. 1.5mg of Definity was utilized for enhancement of images There is mild aortic valve sclerosis. There is sluaddod-ck-chnxdu aortic regurgitation. The mitral valve leaflets are mildly thickened. Mild mitral annular calcification present. Tnto-vv-uujwnacm mitral regurgitation is present. Mild tricuspid regurgitation present. There is mild pulmonary hypertension. The right ventricular systolic pressure, as measured by Doppler, is 45.14mmHg. Trace/mild (physiologic) pulmonic regurgitation. The aortic root size is normal. There is no pericardial effusion. CONCLUSIONS -------- 1. Sinus rhythm. 2. Oovp-rd-tociqrba mitral regurgitation is present. 3. Mild tricuspid regurgitation present. 4. There is mild pulmonary hypertension. 5. The right ventricular systolic pressure, as measured by Doppler, is 45.14mmHg. 6. Trace/mild (physiologic) pulmonic regurgitation. 7. The aortic root size is normal. 8. There is no pericardial effusion. 9. This was a technically difficult study with suboptimal views. 10. Overall left ventricular systolic function is normal with, an EF between 55 - 60 %. 11. Normal LA size by volume 22+/-6 ml/m2. 12. 1.5mg of Definity was utilized for enhancement of images 13. There is mild aortic valve sclerosis. 14. There is rklefsxn-go-xkuzcq aortic regurgitation. 15. The mitral valve leaflets are mildly thickened. 16. Mild mitral annular calcification present. [employer] SUPERVISOR: Alvino Hannah RDCS
[2017-04-08 12:05] VITALS: PULSE 107
[2017-04-08 12:06] VITALS: BP 134/93; RESP 16; TEMP 98.1
--- NOTE | 2017-04-08 13:45 | P.DS ---
Providers Date of admission: 04/06/17 18:19 Expected date of discharge: 04/08/17 Attending physician: Carly Doe Consults: 04/07/17 10:50 Consult Physician Routine Consulting Provider: Walt Valadez Consult Reason/Comments: shortness of breath, pulmonary nodules Do you want consulting provider notified?: Yes Dr. Cox Primary care physician: [facility] Course: Discharge diagnosis 1. Shortness of breath: Likely related to acute CHF exacerbation, COPD exacerbation and bronchitis. However, CTA had shown increasing patchy medial bibasilar opacities to correlate for progressive fibrosis versus acute pneumonitis. CTA negative for PE. Patient evaluated by pulmonary service 2. Acute diastolic CHF exacerbation: Echo shows an EF of 55-60%. There is moderate to severe aortic regurgitation, mild to moderate mitral and tricuspid regurgitation and mild pulmonary hypertension. 3. recent bronchitis and asthma exacerbation. Has started antibiotic treatment outpatient. We'll resume her Augmentin and prednisone. Consult pulmonary service 4. History of Hodgkin's lymphoma completed chemo and radiation treatment 1978 5. History of breast cancer status post mastectomy 6. History of persistent asthma with recent exacerbation continue her prednisone taper. Resume her nebulizer treatments 7.essential hypertension continue her home medications 8. Hypothyroidism resume Synthroid 9. Hyperlipidemia continue Lipitor 10. Elevated platelets likely secondary to her acute infectious process. continue to monitor Hospital course this is a 62-year-old female with a known past medical history of asthma, Hodgkin's lymphoma, breast cancer with mastectomy, obstructive sleep apnea, cardiomyopathy, hypertension, hyperlipidemia and hypothyroidism. Patient reports having worsening shortness of breath over the last couple weeks. She was seen by her warehouse material handler and started on Augmentin and prednisone for bronchitis and asthma exacerbation. Over the last couple a days she continued to have worsening shortness of breath noted that she was having difficulty talking during conversation because of her shortness of breath. She came into the emergency room for further evaluation and treatment she was noted to have elevated d-dimer CTA of the chest was negative for PE. It did show increasing patchy medial by basilar opacities to correlate for possible progressive fibrosis versus acute pneumonitis. There is also scattered pulmonary nodules measuring up to 8 mm most of which are stable. Also occult couple prominent lymph nodes in the posterior mediastinum. Both pulmonary and cardiology services have been consulted. Patient also was noted to have evidence of an acute CHF exacerbation BNP level was 2009 she was started on IV Lasix 40 mg every 12 hours. She also had some swelling in the left arm ultrasound of the arm was done and was found to be negative. Patient has noted some improvement in her breathing after the Lasix. Patient was seen by both pulmonary and cardiology services. She was treated for CHF exacerbation, bronchitis and COPD exacerbation. Pulmonary service felt that she may have been doing too much and just needed to complete her treatment. Also she had some CHF exacerbation started on Lasix showing improvement. Echo showing EF of 55-60%. There was evidence of moderate to severe aortic regurgitation, mild to moderate mitral mitral and tricuspid regurgitation, and mild pulmonary hypertension. She'll follow-up with cardiology in the office. Also on chest CT there was evidence of pulmonary nodules in which patient will have a repeat computed tomography scan in 4-6 months. Patient will follow-up with both cardiology and pulmonary service in the outpatient setting. She'll follow up with Dr. Naqvi in 1 week. At this time patient has been started on Lasix 20 mg daily with K-Dur 10 milliequivalents daily. Patient's breathing has improved and she is medical stable for discharge. Patient Condition at Discharge: Stable Plan - Discharge Summary New Discharge Prescriptions: Furosemide [Lasix] 20 mg PO DAILY #30 tab Potassium Chloride ER [K-Dur 10] 10 meq PO DAILY #30 tab guaiFENesin [Mucinex] 1,200 mg PO Q12HR #10 tablet.er Discharge Medication List ALPRAZolam [Xanax] 0.25 mg PO TID PRN 10/05/16 [History] Budesonide-Formot 160-4.5 Mcg [Symbicort 160-4.5 Mcg Inhaler] 2 puff INHALATION BID 10/05/16 [History] Cetirizine HCl [Zyrtec] 5 mg PO DAILY PRN 10/05/16 [History] Levothyroxine Sodium [Synthroid] 100 mcg PO DAILY 10/05/16 [History] Losartan [Cozaar] 25 mg PO HS 10/05/16 [History] Metoprolol Succinate (ER) [Toprol XL] 25 mg PO DAILY 10/05/16 [History] Montelukast [Singulair] 10 mg PO DAILY 10/05/16 [History] Omeprazole [PriLOSEC] 40 mg PO BID 10/05/16 [History] Sertraline [Zoloft] 100 mg PO DAILY 10/05/16 [History] Simvastatin [Zocor] 40 mg PO HS 10/05/16 [History] buPROPion [Wellbutrin] 300 mg PO DAILY 10/05/16 [History] ARIPiprazole [Abilify] 2 mg PO DAILY 04/06/17 [History] Albuterol Sulfate [Proair Hfa] 2 puff INHALATION Q6HR PRN 04/06/17 [History] Amoxic-Pot Clav 875-125Mg [Augmentin 875-125] 1 tab PO Q12HR 04/06/17 [History] Cyanocobalamin [Vitamin B-12] 500 mcg PO DAILY 04/06/17 [History] Furosemide [Lasix] 20 mg PO DAILY #30 tab 04/08/17 [Rx] Potassium Chloride ER [K-Dur 10] 10 meq PO DAILY #30 tab 04/08/17 [Rx] guaiFENesin [Mucinex] 1,200 mg PO Q12HR #10 tablet.er 04/08/17 [Rx] Follow up Appointment(s)/Referral(s): Michelle Naqvi MD [Primary Care Provider] - 1 Week Walt Valadez DO [Doctor of Osteopathic Medicine] - 1 Week Hoang Cox MD [STAFF PHYSICIAN] - 1 Week Activity/Diet/Wound Care/Special Instructions: Diet: cardiac Activity: as tolerated Continue prednisone taper from home Discharge Disposition: HOME SELF-CARE
--- NOTE | 2017-04-08 14:38 | P.PN ---
Subjective Principal diagnosis: Shortness of breath This is a 62-year-old female who follows regularly with Dr. Jasso in the office. She has a known history of hyperlipidemia, nonischemic cardiomyopathy, hyperlipidemia, hypothyroidism, history of breast CA with prior mastectomy, aortic valve insufficiency, nonrheumatic, straight of Hodgkin's lymphoma and asthma. Patient presents to the hospital with symptoms of progressively worsening shortness of breath. She states that she had gone to see Dr. Archuleta as an outpatient, was initiated on antibiotics as well as steroids. She states in spite of that she progressively continued to get more and more short of breath even to the point where she couldn't speak long sentences without becoming extremely short of breath. X-ray was performed which revealed calcified mediastinal and hilar lymph nodes which could reflect prior granulomatous disease or treated lymphoma. There are chronic parenchymal changes without any acute process. Correlate to exclude mild congestive heart failure. CAT scan of the chest was performed which did not reveal evidence of a pulmonary embolism. Increasing patchy medial bibasilar obesities correlate for possible progressive fibrosis. Scattered pulmonary nodules measuring up to 8 mm, most of which are stable, an 8 mm left apical pulmonary nodule is increased in size previously measuring 5 mm in 2011 and 4 mm subpleural pulmonary nodule in the left upper lobe which may be new. A couple prominent lymph nodes in the posterior mediastinotomy noted. Paraesophageal and. Aortic measuring up to 8 mm slightly increased in size from previous. Venous duplex of the left antecubital negative for thrombus. Blood pressure 134/90 with a heart rate in the 80s to 90s. Heart exam with Doppler study was performed which revealed an ejection fraction of 55-60%, moderate to severe aortic insufficiency. Patient diuresed very well through the night last night, her weight is down 1 kg today. We'll discontinue the IV Lasix, from cardiology's perspective she may be able to be discharged home today. We will make her a follow-up appointment Louisa back in the office. Objective - Vital Signs Vital signs: Vital Signs Temp 98.1 F 04/08/17 12:00 Pulse 107 H 04/08/17 12:00 Resp 16 04/08/17 12:00 BP 134/93 04/08/17 12:00 Pulse Ox 99 04/08/17 12:00 Intake & Output 04/07/17 04/08/17 04/08/17 18:59 06:59 18:59 Intake Total 720 250 236 Output Total 2200 1999 Balance -1480 -1750 -564 Weight 80 kg 79.3 kg Intake: Oral 720 250 236 Output: Urine 2199 1999 800 Other: Voiding Method Toilet Toilet # Voids 1 2 - Exam PHYSICAL EXAMINATION: HEENT: Head is atraumatic, normocephalic. Pupils equal, round. Neck is supple. There is no elevated jugular venous pressure. HEART EXAMINATION: S1 and S2 systolic murmur is heard CHEST EXAMINATION: Lungs are clear to auscultation and precussion. No chest wall tenderness is noted on palpation or with deep breathing. ABDOMEN: Soft, nontender. Bowel sounds are heard. No organomegaly noted. EXTREMITIES: 2+ peripheral pulses with no evidence of peripheral edema and no calf tenderness noted. NEUROLOGIC patient is awake, alert and oriented -3. - Labs CBC & Chem 7: 04/08/17 06:21 04/08/17 06:21 Labs: Abnormal Lab Results - Last 24 Hours (Table) 04/08/17 04/08/17 Range/Units 06:21 06:21 WBC 19.8 H (3.8-10.6) k/uL Plt Count 560 H (150-450) k/uL Neutrophils # 15.7 H (1.3-7.7) k/uL Chloride 95 L (98-107) mmol/L BUN 20 H (7-17) mg/dL Glucose 102 H (74-99) mg/dL Assessment and Plan Plan: Assessment and plan #1 diastolic congestive heart failure acute #2 exacerbation of asthma #3 history of Hodgkin's lymphoma #4 history of breast CA #5 edema #6 nonischemic cardiomyopathy #7 hypothyroidism #8 aortic insufficiency, nonrheumatic Plan Echocardiogram with Doppler study was performed which revealed an ejection fraction of 55-60%, moderate to severe aortic regurg. From cardiology's perspective, discontinue the IV Lasix. Patient may be able to be discharged home once cleared by the primary and we will make her a follow-up appointment to see Dr. Jasso back in the office post discharge. DNP note has been reviewed, I agree with a documented findings and plan of care. Patient was seen and examined.
--- NOTE | 2017-04-08 17:44 | PN ---
This is a very pleasant 62-year-old female with history of asthma, breast cancer, Hodgkin's lymphoma, GERD, hyperlipidemia, hypertension, sleep apnea, and hypothyroidism. The patient was admitted with a diagnosis of shortness of breath. I actually saw her last week in the office and treated her for an asthma exacerbation. She is not sure that she was improved, but does state that maybe because she was feeling better, she was doing well and she felt more short of breath. Anyway, when she was admitted here, she was thought to possibly have underlying CHF. This is based on lab tests, exam and chest x-rays. She is feeling much better and might be able to go home today. She is hoping so. Currently, she is feeling much better. Much less short of breath. Current vital signs revealed temperature 98.1, heart rate 90, respiratory 16, blood pressure 134/93, mean 106, room air saturation 99%. Appears in no acute distress. HEENT Examination is grossly unremarkable. Mucous membranes are moist. No oral lesions. Neck is supple. Full range of motion. No adenopathy or thyromegaly. Neck veins are flat. Cardiovascular examination reveals regular rhythm and rate. S1, S2 normal. No murmur. No S3, S4. Lungs revealed mostly clear breath sounds. No significant wheezes, rhonchi or crackles. She never really had crackles when I first saw her. This may have been from diuresis that occurred prior to her coming up to the floor. ABDOMEN: Soft. Bowel sounds are heard. No masses or tenderness. EXTREMITIES: Intact. There is no cyanosis, clubbing or edema. Skin is without rash. Neurological examination is nonfocal. Lab data is reviewed. White count 19.8. Hemoglobin and hematocrit normal, platelet count of 560,000. Her sodium 138, potassium 4.1, chloride 95, CO2 of 30, BUN and creatinine were 20 and 0.7. The rest of her labs look okay. The echocardiogram from yesterday shows mild to moderate mitral regurgitation and mild tricuspid regurgitation, mild pulmonary hypertension with a right ventricular systolic pressure estimated to be 45, trace pulmonic regurgitation, good ejection fraction of 55 to 60%, moderate to severe aortic regurgitation. ASSESSMENT: 1. Shortness of breath, likely multifactorial, in part related to asthma exacerbation and possible mild congestive heart failure. 2. Multiple pulmonary nodules all of which appear to be relatively benign or chronic in nature and could be evaluated with a follow-up CT scan in 4 to 6 months. 3. Hyperlipidemia. 4. Hypothyroidism. 5. History of sleep apnea. 6. Gastroesophageal reflux disease. 7. Breast cancer. 8. Hodgkin's lymphoma. PLAN: The patient is doing well. She should follow with me in the office. She is waiting for cardiology input. We will continue to see and follow. She should finish off the antibiotics steroids as prescribed. She should also finished out the rest of her asthma medications. We will re-evaluate her with a PFT in the office when she returns. No additional recommendations are made. Prognosis is guarded.
[2017-04-08] MEDS ORDERED: guaiFENesin 600 MG TABLET.ER PO SCH (21:00)
== END 2017-04-08 18:15 | disposition home or self-care (01) | DRG 292 ==
LOC: EC 13:40 → 6SEL 18:19
PROVIDERS: ADMIT Internal Medicine; ATTEND Internal Medicine
DX: I11.0 Hypertensive heart disease with heart failure (principal); J45.901 Unspecified asthma with (acute) exacerbation; I27.2 Other secondary pulmonary hypertension; J44.1 Chronic obstructive pulmonary disease with (acute) exacerbation; I42.9 Cardiomyopathy, unspecified; I08.1 Rheumatic disorders of both mitral and tricuspid valves; I50.33 Acute on chronic diastolic (congestive) heart failure; I35.1 Nonrheumatic aortic (valve) insufficiency; E03.9 Hypothyroidism, unspecified; E78.5 Hyperlipidemia, unspecified; K21.9 Gastro-esophageal reflux disease without esophagitis; R91.1 Solitary pulmonary nodule; G47.33 Obstructive sleep apnea (adult) (pediatric); F41.9 Anxiety disorder, unspecified; I44.7 Left bundle-branch block, unspecified; F32.9 Major depressive disorder, single episode, unspecified; Z87.891 Personal history of nicotine dependence; Z85.72 Personal history of non-Hodgkin lymphomas; Z92.21 Personal history of antineoplastic chemotherapy; Z92.3 Personal history of irradiation; Z85.3 Personal history of malignant neoplasm of breast; Z90.710 Acquired absence of both cervix and uterus; Z90.10 Acquired absence of unspecified breast and nipple; Z79.51 Long term (current) use of inhaled steroids; Z79.899 Other long term (current) drug therapy
CPT/HCPCS: 36415; 71020; 71275; 80048; 80053; 82550; 82553; 83605; 83735; 83880; 84484; 85025; 85379; 85610; 85730; 93005; 93306; 94640; 94760; 96374; 99285

== ENCOUNTER 2017-05-13 12:11 | Emergency (ER) | payer BC ==
[2017-05-13 12:21] VITALS: RESP 18
[2017-05-13] MEDS ORDERED: IPRATROPIUM-ALBUTEROL 3 ML NEB INHALATION STA (12:36)
--- NOTE | 2017-05-13 12:42 | ED ---
General Adult HPI - General Chief complaint: Shortness of Breath Stated complaint: SOB Time Seen by Provider: 05/13/17 12:22 Source: patient, RN notes reviewed Mode of arrival: ambulatory Limitations: no limitations - History of Present Illness Initial comments: Patient is a pleasant 62-year-old female presenting to the emergency department complaining of shortness of breath. Symptoms have been present for several weeks however worse the past 2 or 3 days. Patient has dyspnea, especially with exertion. Patient is also fatigued with exertion. No chest pain. Patient does have mild cough. Patient is just finishing antibiotics and steroids. Patient did take a nebulizer treatment this morning and is unclear whether or not that helped her symptoms. Patient does have a history of similar symptoms previously associated with CHF. Patient has mild ankle swelling. - Related Data Home Medications Medication Instructions Recorded Confirmed ALPRAZolam [Xanax] 0.25 mg PO TID PRN 10/05/16 05/13/17 Budesonide-Formot 160-4.5 Mcg 2 puff INHALATION RT-BID 10/05/16 05/13/17 [Symbicort 160-4.5 Mcg Inhaler] Levothyroxine Sodium [Synthroid] 100 mcg PO DAILY 10/05/16 05/13/17 Losartan [Cozaar] 25 mg PO HS 10/05/16 05/13/17 Metoprolol Succinate (ER) [Toprol 25 mg PO DAILY 10/05/16 05/13/17 XL] Montelukast [Singulair] 10 mg PO HS 10/05/16 05/13/17 Omeprazole [PriLOSEC] 40 mg PO AC-BID 10/05/16 05/13/17 Sertraline [Zoloft] 100 mg PO W/SUPPER 10/05/16 05/13/17 Simvastatin [Zocor] 40 mg PO HS 10/05/16 05/13/17 ARIPiprazole [Abilify] 2 mg PO DAILY 04/06/17 05/13/17 Albuterol Sulfate [Proair Hfa] 2 puff INHALATION RT-Q6H PRN 04/06/17 05/13/17 Acyclovir 400 mg PO DAILY PRN 05/13/17 05/13/17 Acyclovir [Zovirax] 1 applic TOPICAL 5XD PRN 05/13/17 05/13/17 Cetirizine HCl [Zyrtec] 10 mg PO DAILY PRN 05/13/17 05/13/17 Ranitidine HCl [Zantac] 150 mg PO HS PRN 05/13/17 05/13/17 Spironolactone-Hctz 25-25Mg 1 tab PO DAILY 05/13/17 05/13/17 [Aldactazide 25-25 MG] buPROPion XL [Wellbutrin Xl] 300 mg PO DAILY 05/13/17 05/13/17 Previous Rx's Medication Instructions Recorded Furosemide [Lasix] 20 mg PO DAILY #30 tab 04/08/17 Potassium Chloride ER [K-Dur 10] 10 meq PO DAILY #30 tab 04/08/17 Levofloxacin [Levaquin] 500 mg PO DAILY #10 tab 05/13/17 Allergies Allergy/AdvReac Type Severity Reaction Status Date / Time No Known Allergies Allergy Verified 05/13/17 14:01 Review of Systems ROS Statement: Those systems with pertinent positive or pertinent negative responses have been documented in the HPI. ROS Other: All systems not noted in ROS Statement are negative. Constitutional: Denies: fever Eyes: Denies: eye pain ENT: Denies: ear pain Respiratory: Reports: cough, dyspnea Cardiovascular: Denies: chest pain Endocrine: Reports: fatigue Gastrointestinal: Denies: abdominal pain Genitourinary: Denies: dysuria Musculoskeletal: Denies: back pain Skin: Denies: rash Neurological: Denies: weakness Past Medical History Past Medical History: Asthma, Cancer, Heart Failure, GERD/Reflux, Hyperlipidemia , Hypertension, Sleep Apnea/CPAP/BIPAP, Thyroid Disorder Additional Past Medical History / Comment(s): Hodgkins Lymphoma status post chemo and radiation 1978; Breast CAstatus post mastectomy History of Any Multi-Drug Resistant Organisms: None Reported Past Surgical History: Adenoidectomy, Breast Surgery, Section, Hysterectomy, Orthopedic Surgery, Tonsillectomy Additional Past Surgical History / Comment(s): Spleenectomy, Lapraotomy. Colonoscopy, EGD, Foot surgery, breast reconstruction Past Anesthesia/Blood Transfusion Reactions: No Reported Reaction Past Psychological History: Anxiety, Depression Smoking Status: Former smoker Past Alcohol Use History: Rare Past Drug Use History: None Reported - Past Family History Mother Family Medical History: No Reported History Brother(s) Additional Family Medical History / Comment(s): MS General Exam Limitations: no limitations General appearance: alert, in no apparent distress Head exam: Present: atraumatic Eye exam: Present: normal appearance, PERRL ENT exam: Present: normal oropharynx Neck exam: Present: normal inspection Respiratory exam: Present: wheezes (Mild expiratory wheeze) Cardiovascular Exam: Present: regular rate, normal rhythm GI/Abdominal exam: Present: soft. Absent: tenderness Extremities exam: Present: pedal edema (Trace ankle edema). Absent: calf tenderness Neurological exam: Present: alert Psychiatric exam: Present: normal affect, normal mood Skin exam: Present: normal color Course Vital Signs 05/13/17 05/13/17 05/13/17 12:18 13:11 13:21 Temperature 98.1 F Pulse Rate 98 87 89 Respiratory 18 Rate Blood Pressure 117/61 O2 Sat by Pulse 95 Oximetry 05/13/17 13:30 Temperature Pulse Rate 86 Respiratory 18 Rate Blood Pressure 107/53 O2 Sat by Pulse 96 Oximetry EKG Findings - EKG Comments: EKG Findings:: Normal sinus rhythm at 89. GA 162. QRS 142. QT 374. QTC 455. Normal axis. Left bundle branch block. No acute ST change. Medical Decision Making - Medical Decision Making Patient reexamined and resting comfortably in bed. Patient states her breathing is comfortable and requests discharge. Patient offered admission however refuses. Patient is still on steroids. Patient recently finished azithromycin. Patient requests Levaquin stating this previously worked well for her. Patient states she did have her Lasix refilled while in the emergency department. - Lab Data Result diagrams: 05/13/17 12:40 05/13/17 12:40 Lab Results 05/13/17 05/13/17 05/13/17 Range/Units 12:40 12:40 12:40 WBC 20.2 H (3.8-10.6) k/uL RBC 4.00 (3.80-5.40) m/uL Hgb 11.0 L (11.4-16.0) gm/dL Hct 34.7 (34.0-46.0) % MCV 86.7 (80.0-100.0) fL MCH 27.4 (25.0-35.0) pg MCHC 31.6 (31.0-37.0) g/dL RDW 15.9 H (11.5-15.5) % Plt Count 454 H (150-450) k/uL Neutrophils % 91 % Lymphocytes % 6 % Monocytes % 2 % Eosinophils % 0 % Basophils % 0 % Neutrophils # 18.4 H (1.3-7.7) k/uL Lymphocytes # 1.3 (1.0-4.8) k/uL Monocytes # 0.4 (0-1.0) k/uL Eosinophils # 0.0 (0-0.7) k/uL Basophils # 0.0 (0-0.2) k/uL Hypochromasia Slight PT (9.0-12.0) sec INR (<1.1) APTT (22.0-30.0) sec D-Dimer (<0.60) mg/L FEU Sodium 139 (137-145) mmol/L Potassium 4.6 (3.5-5.1) mmol/L Chloride 103 (98-107) mmol/L Carbon Dioxide 25 (22-30) mmol/L Anion Gap 11 mmol/L BUN 26 H (7-17) mg/dL Creatinine 0.80 (0.52-1.04) mg/dL Est GFR (MDRD) Af Amer >60 (>60 ml/min/1.73 sqM) Est GFR (MDRD) Non-Af >60 (>60 ml/min/1.73 sqM) Glucose 112 H (74-99) mg/dL Calcium 9.6 (8.4-10.2) mg/dL Total Bilirubin 0.3 (0.2-1.3) mg/dL AST 23 (14-36) U/L ALT 41 (9-52) U/L Alkaline Phosphatase 71 (38-126) U/L Total Creatine Kinase 38 (30-135) U/L CK-MB (CK-2) 1.0 (0.0-2.4) ng/mL CK-MB (CK-2) Rel Index 2.6 Troponin I <0.012 (0.000-0.034) ng/mL NT-Pro-B Natriuret Pep pg/mL Total Protein 6.2 L (6.3-8.2) g/dL Albumin 3.7 (3.5-5.0) g/dL 05/13/17 05/13/17 Range/Units 12:40 12:40 WBC (3.8-10.6) k/uL RBC (3.80-5.40) m/uL Hgb (11.4-16.0) gm/dL Hct (34.0-46.0) % MCV (80.0-100.0) fL MCH (25.0-35.0) pg MCHC (31.0-37.0) g/dL RDW (11.5-15.5) % Plt Count (150-450) k/uL Neutrophils % % Lymphocytes % % Monocytes % % Eosinophils % % Basophils % % Neutrophils # (1.3-7.7) k/uL Lymphocytes # (1.0-4.8) k/uL Monocytes # (0-1.0) k/uL Eosinophils # (0-0.7) k/uL Basophils # (0-0.2) k/uL Hypochromasia PT 9.6 (9.0-12.0) sec INR 0.9 (<1.1) APTT 22.2 (22.0-30.0) sec D-Dimer 0.48 (<0.60) mg/L FEU Sodium (137-145) mmol/L Potassium (3.5-5.1) mmol/L Chloride (98-107) mmol/L Carbon Dioxide (22-30) mmol/L Anion Gap mmol/L BUN (7-17) mg/dL Creatinine (0.52-1.04) mg/dL Est GFR (MDRD) Af Amer (>60 ml/min/1.73 sqM) Est GFR (MDRD) Non-Af (>60 ml/min/1.73 sqM) Glucose (74-99) mg/dL Calcium (8.4-10.2) mg/dL Total Bilirubin (0.2-1.3) mg/dL AST (14-36) U/L ALT (9-52) U/L Alkaline Phosphatase (38-126) U/L Total Creatine Kinase (30-135) U/L CK-MB (CK-2) (0.0-2.4) ng/mL CK-MB (CK-2) Rel Index Troponin I (0.000-0.034) ng/mL NT-Pro-B Natriuret Pep 1360 pg/mL Total Protein (6.3-8.2) g/dL Albumin (3.5-5.0) g/dL - Radiology Data Radiology results: image reviewed (Chest x-ray shows possible infrahilar infiltrate) Disposition Clinical Impression: Pneumonia Disposition: HOME SELF-CARE Condition: Stable Instructions: Pneumonia (ED) Additional Instructions: Please follow-up with your doctor on Tuesday. Return for difficulty in breathing , chest pain, worsening symptoms or any other concerns. Prescriptions: Levofloxacin [Levaquin] 500 mg PO DAILY #10 tab Referrals: Michelle Naqvi MD [Primary Care Provider] - 1-2 days Time of Disposition: 14:42
[2017-05-13 13:05] LABS: Basophils % (A) 0 %; CH 27.6; Eosinophils % (A) 0 %; HCT 34.7 % (34.0-46.0); HDW 2.76; Hypochromasia Slight; Luc # (Auto) 0.12; Luc % (Auto) 1; Lymphocytes # (A) 1.3 k/uL (1.0-4.8); Lymphocytes % (A) 6 %; MCH 27.4 pg (25.0-35.0); MCHC 31.6 g/dL (31.0-37.0); MCV 86.7 fL (80.0-100.0); Mean Platelet Volume 6.5; Monocytes # (A) 0.4 k/uL (0-1.0); Monocytes % (A) 2 %; Neutrophils # (A) 18.4 k/uL (1.3-7.7); Neutrophils % (A) 91 %; RDW 15.9 % (11.5-15.5); WBC 20.2 k/uL (3.8-10.6)
[2017-05-13 13:15] LABS: ALT 41 U/L (9-52); AST 23 U/L (14-36); Alkaline Phosphatase 71 U/L (38-126); Anion Gap 11 mmol/L; Blood Urea Nitrogen 26 mg/dL (7-17); Calcium 9.6 mg/dL (8.4-10.2); Carbon Dioxide 25 mmol/L (22-30); Chloride 103 mmol/L (98-107); Glucose 112 mg/dL (74-99); INR 0.9 (<1.1); Non-African American GFR(MDRD) >60 (>60 ml/min/1.73 sqM); Partial Thromboplastin Time 22.2 sec (22.0-30.0); Potassium 4.6 mmol/L (3.5-5.1); Prothrombin Time 9.6 sec (9.0-12.0); Sodium 139 mmol/L (137-145); Total Bilirubin 0.3 mg/dL (0.2-1.3); Total Protein 6.2 g/dL (6.3-8.2)
[2017-05-13 13:29] LABS: Creatine Kinase 38 U/L (30-135)
[2017-05-13 13:42] LABS: Troponin I <0.012 ng/mL (0.000-0.034)
--- NOTE | 2017-05-13 13:49 | XR ---
EXAMINATION TYPE: XR chest 2V DATE OF EXAM: 05/13/2017 COMPARISON: 04/06/2017 INDICATION: Difficulty breathing, history of lymphoma and breast cancer with chest radiation TECHNIQUE: Frontal and lateral views of the chest are obtained. FINDINGS: The heart size is normal. The pulmonary vasculature is normal. Mild infrahilar infiltrates may be present. Correlate for atelectasis. Calcified lymphadenopathy appe ars stable in the mediastinum.. IMPRESSION: 1. Mild infrahilar infiltrates suspected. Early atelectasis or pneumonia could be considered.
[2017-05-13 15:01] VITALS: BP 100/55; PULSE 84; TEMP 98.2
== END 2017-05-13 14:50 | disposition home or self-care (01) ==
LOC: EC 12:11
DX: J18.9 Pneumonia, unspecified organism (principal); M25.473 Effusion, unspecified ankle; J45.909 Unspecified asthma, uncomplicated; I50.9 Heart failure, unspecified; E78.5 Hyperlipidemia, unspecified; K21.9 Gastro-esophageal reflux disease without esophagitis; I10 Essential (primary) hypertension; E07.9 Disorder of thyroid, unspecified; F32.9 Major depressive disorder, single episode, unspecified; F41.9 Anxiety disorder, unspecified; Z87.891 Personal history of nicotine dependence; Z79.51 Long term (current) use of inhaled steroids; Z79.899 Other long term (current) drug therapy; Z85.71 Personal history of Hodgkin lymphoma
CPT/HCPCS: 36415; 71020; 80053; 82550; 82553; 83880; 84484; 85025; 85379; 85610; 85730; 93005; 94640; 99285

== ENCOUNTER → 2017-06-15 | Outpatient (CLI) | payer BC ==
--- NOTE | 2017-06-15 16:47 | XR ---
EXAMINATION TYPE: XR chest 2V DATE OF EXAM: 06/15/2017 COMPARISON: 05/13/2017 HISTORY: Pneumonia TECHNIQUE: Frontal and lateral views of the chest are obtained. FINDINGS: There is no heart failure nor confluent pneumonic infiltrate. There are dense calcified gr anulomata at the pulmonary kelly and subcarinal region. There is no pleural effusion. Bones are osteop enic. Thoracic aorta is atheromatous. IMPRESSION: Old granulomatous disease. No acute lung disease. No adverse change compared to old exam .
== END | disposition home or self-care (01) ==
LOC: RADXRMAIN 16:19
PROVIDERS: ATTEND Internal Medicine
DX: J18.9 Pneumonia, unspecified organism (principal)
CPT/HCPCS: 71020

== ENCOUNTER → 2017-08-19 | Outpatient (CLI) | payer BC ==
--- NOTE | 2017-08-19 17:00 | BD ---
EXAMINATION TYPE: MG DEXA axial skeleton. DATE OF EXAM: 08/19/2017 COMPARISON: 03.20.2010 CLINICAL HISTORY: N95.1 POST MENOPAUSAL SYMPTOMS Height: 62.3 Weight: 182 FRAX RISK QUESTIONS: Alcohol (3 or more units per day): NO Family History (Parent hip fracture): YES, BUT NO FXS Glucocorticoids (More than 3mos): YES (Ex: prednisone, prednisolone, methylprednisolone, dexamethasone, and hydrocortisone). History of Fracture in Adulthood: YES Secondary Osteoporosis: 1. Type 1 Diabetes: NO 2. Hyperthyroidism: NO 3. Menopause before 45: NO AT 45 4. Malnutrition: NO 5. Chronic liver disease: NO Rheumatoid Arthritis: NO Current Tobacco Use: NO RISK FACTORS HISTORY OF: RT ANKLE FX...TWICE...>50 YRS OLD AT TIME, AND RT SMALL TOE ALSO OVER 50 YRS OLD History of Wrist Fracture: LT WRIST When: A CHILD Surgery to Spine ONLY MUSCLE RETRIEVAL FOR BREAST RECONSTRUCTION...NOTHING TO BONES Family History of Osteoporosis: YES, GRANDMOTHER, MOTHER AND SISTER.....NO BROKEN HIPS Active: NOT RIGHT NOW... Diet low in dairy products/other sources of calcium: NO Postmenopausal woman: 45 YRS OLD Lost more than 2 inches in height since high school: YES Hyperparathyroidism: NO Adrenal Insufficiency: NO MEDICATIONS: Prednisone or other steroids: ASTHMA INHALERS, SYMBACORT AND PROAIR, SINGULAIR, How Lon YRS Thyroid Medications: YES, SYNTHROID, 20 YRS Additional Medications: HX OF RADIATION 1979, ABILIFY, REFLUX MEDS, STATIN FOR CHOLESTEROL, BP MEDS, POTASSIUM, HEART MEDS Additional History: HX OF LT BREAST CANCER....3005, HX OF HODGKIN'S LYMPHOMA, CHF, ASTHMA, TOTAL HYST AT 60 YRS OLD EXAM MEASUREMENTS: Bone mineral densitometry was performed using the [employer] System. Bone mineral density as measured about the Lumbar spine is: ----- L1-L4(G/cm2): 0.969 T Score Values are as follows: ----- L1: -1.2 ----- L2: -2.2 ----- L3: -2.5 ----- L4: -1.4 ----- L1-L4: -1.8 Bone mineral density has: Decreased -5.3% since study of: 03.20.2010 Bone mineral density about the R hip (g/cm2): 0.995 Bone mineral density about the L hip (g/cm2): 1.033 T Score values are as follows: -----R Neck: -1.3 -----L Neck: -0.8 -----R Total: -0.1 -----L Total: 0.2 Bone mineral density has: Decreased -1.2% since study of: 03.20.2010 FRAX%'S THERE IS A 12.1% CHANCE OF A MAJOR OSTEOPOROTIC FX AND A 1.1% FOR HIP FX......PROBABILITY O F FX IN 10 YRS TIME IMPRESSION: Osteopenia (T Score between -2.5 and -1 as noted by T score values There is slightly increased risk of fracture and the patient may be considered for treatment. Re-Screen 2-5 years. FOR HER SPINE AND RT HIP NOTE: T-SCORE=SD OF THE YOUNG ADULT MEAN.
== END | disposition home or self-care (01) ==
LOC: RADBDWWP 09:23
PROVIDERS: ATTEND Internal Medicine
DX: M85.852 Other specified disorders of bone density and structure, left thigh (principal); M85.851 Other specified disorders of bone density and structure, right thigh; M85.88 Other specified disorders of bone density and structure, other site
CPT/HCPCS: 77080

== ENCOUNTER → 2017-08-24 | Outpatient (CLI) | payer BC ==
--- NOTE | 2017-08-24 17:53 | CT ---
EXAMINATION TYPE: CT chest w con DATE OF EXAM: 08/24/2017 COMPARISON: 04/06/2017 HISTORY: SOB and cough x4 months. CT DLP: 656 mGycm Automated exposure control for dose reduction was used. CONTRAST: CT scan of the chest is performed with IV Contrast, patient injected with 100 mL of Omnipaque 300. FINDINGS: There is infiltrate and atelectasis in the posterior left upper lobe. There is similar mild density a t the medial posterior basal segments of the lower lobes. There is no pleural effusion. Heart is probably enlarged. There is no pericardial effusion. There are densely calcified mediastinal lymph nodes. Thoracic aorta is atheromatous. There is no evidence of aneurysm. There is a low-densit y 8 mm nodule in the subpleural left lower lobe. There is a 4 mm subpleural nodule posterior left low er lobe. Left breast prosthesis is noted. There is 5-10% anterior wedging of T4 T5 T6 vertebra. The images included upper abdomen that appear to show a enhancing 2.5 cm mass on the anterior right k idney. CONCLUSION: Old granulomatous disease. Pulmonary small nodules are stable compared to old exam. Coarse interstiti al density in the left upper lobe and both lower lobes consistent with fibrosis that appears stable. Old thoracic mild compression fractures. Possible solid tumor on the right kidney. Follow-up is recommended.
== END | disposition home or self-care (01) ==
LOC: RADCTMAIN 17:15
PROVIDERS: ATTEND Internal Medicine Critical Care Medicine
DX: J98.4 Other disorders of lung (principal); R91.8 Other nonspecific abnormal finding of lung field; J45.909 Unspecified asthma, uncomplicated
CPT/HCPCS: 71260; Q9967

== ENCOUNTER → 2017-09-05 | Outpatient (CLI) | payer BC ==
--- NOTE | 2017-09-05 14:06 | MM ---
Reason for exam: follow-up at short interval from prior study. Last mammogram was performed 6 months ago. History: Patient is postmenopausal, has history of breast cancer at age 49, and has history of other cancer at age 23. Family history of breast cancer in maternal grandmother at age 89. Silicone gel implant in the left breast, 2008. Retro-pectoral silicone gel implants in both breasts, June 2005. Mastectomy of the left breast, 2004. Malignant stereotactic core biopsy of the left breast, September 18, 2004. Core biopsy of the left breast. Implant Removal of the right breast. Took estrogen for 4 years. Took progesterone for 4 years. Physical Findings: Nurse did not find any significant physical abnormalities on exam. MG Diagnostic Mammo RT w CAD CC and MLO view(s) were taken of the right breast. Prior study comparison: March 03, 2017, MG screen liv unilateral w/cad. February 20, 2016, right breast MG 3d diag mammo w/cad RT. December 18, 2014, right breast MG diagnostic mammo RT w CAD. There are scattered fibroglandular densities. There is chronic nodularity in the right breast. Changes in the breast related to prior implant removal. The previous posterior density is no longer identified. No significant new findings when compared with previous films. These results were verbally communicated with the patient and result sheet given to the patient on 09/05/17. ASSESSMENT: Negative, BI-RAD 1 RECOMMENDATION: Follow-up diagnostic mammogram of the right breast in 1 year.
== END | disposition home or self-care (01) ==
LOC: RADMAMWWP 12:57
PROVIDERS: ATTEND Internal Medicine Hematology & Oncology
DX: R92.8 Other abnormal and inconclusive findings on diagnostic imaging of breast (principal); Z85.3 Personal history of malignant neoplasm of breast

== ENCOUNTER 2017-09-13 06:53 | Day surgery (SDC) | payer BC ==
[2017-09-12 12:10] VITALS: BMI 32.1
[~2017-09-13 06:53] MED LIST: LACTATED RINGERS 1,000 ML IV SCH
[2017-09-13] MEDS: CYCLOPENTOLATE 1% OPHTH SOLN 2 ML BTL OP ONE ×3 (07:08→07:20)
[2017-09-13] MEDS: PHENYLEPHRINE 10% OPHTH DROPS 5 ML BTL OP ONE ×3 (07:10→07:22)
[2017-09-13] MEDS: KETOROLAC 0.5% OPHTH DROPS 5 ML BTL OP ONE ×3 (07:12→07:24)
[2017-09-13 07:28] VITALS: RESP 16; TEMP 98
[2017-09-13] MEDS ORDERED: LIDOCAINE 1% 20 ML VIAL (10MG/ML) FOR IV START INTRADERMA ONE (07:28)
[2017-09-13] MEDS ORDERED: BALANCED SALT IRRIG SOLN COMB2 15 ML IRRIG.SOLN INTRAOCULA ONE (07:59)
[2017-09-13] MEDS ORDERED: HYALURONATE SODIUM INTRAOCULAR 1 EACH SYRINGE (10MG/ML) INTRAOCULA ONE (07:59)
[2017-09-13] MEDS ORDERED: PROPOFOL 10 MG/ML 20 ML VIAL IV ONE (08:00)
[2017-09-13] MEDS ORDERED: fentaNYL (PF) 50 MCG/ML 2 ML AMP ONE (08:00)
[2017-09-13] MEDS ORDERED: MIDAZOLAM 2 MG/2 ML VIAL ONE (08:00)
[2017-09-13] MEDS ORDERED: EPINEPHrine (PF) 0.5 ML in BALANCED SALT IRRIG SOLN COMB2 500 ML IRRIGATION ONE (08:08)
--- NOTE | 2017-09-13 08:39 | P.OP ---
Date of Procedure: 09/13/17 Procedure(s) Performed: PREOPERATIVE DIAGNOSIS: Cataract, left eye. POSTOPERATIVE DIAGNOSIS: Cataract, left eye. OPERATION: Phacoemulsification cataract, left eye. DESCRIPTION OF PROCEDURE: The patient was taken to the preoperative holding area. Intravenous Propofol was given so as to bring about adequate sedation. The following mixture was given for local anesthesia: 5 mL of 2% lidocaine, 5 mL of 0.75% Marcaine, and 1 mL of Wydase. Approximately 4 mL was injected in the retrobulbar space of the surgical eye. Additional 1 mL was then directed to the temporal area of the surgical eye. This was performed to allow adequate neurological block of the facial muscles. The patient was revived and then taken into the operative room. The patient was prepped and draped in the usual sterile manner for the operative eye. A lid speculum was put into position. The conjunctiva was resected back from the limbus in the 12 o'clock position. Bleeding was controlled with electrocautery. A #69 blade was then used and a half-thickness scleral incision approximately 1-mm posterior to the limbus was made on bare sclera. This was shelved in the clear cornea using a crescent knife. Next a 15-degree blade was used to make a stab incision at the 3 o' clock position at the corneolimbal interface. Keratome blade was then used and the superior wound was extended into the anterior chamber. Viscoelastic was injected into the anterior chamber and to maintain its form. Next, a cystotome was used and a continuous anterior capsulotomy was made without difficulty. Hydrodissection using a blunt cannula and BSS was performed. Phaco probe was then employed and a groove extending from 12 to 6 o'clock in the lens was created. A Gold wand was used through the stab incision so as to perform a divide and conquer technique. Next an irrigation aspiration probe was utilized and any residual cortex was removed from the eye. Again, viscoelastic was injected into the anterior chamber. An Ivan posterior chamber lens implant was placed in the cartridge and injected into the anterior chamber without difficulty. The SinSurroundsMeey hook was utilized to spin the lens into position and this was again performed without any difficulty. The irrigation and aspiration probe was again employed and any residual viscoelastic was removed from the eye. Then BSS was injected into the limbal stab incision and the anterior chamber re-inflated. The conjunctiva was reapproximated using electrocautery. One drop of 0.25% Timoptic was placed over the corneal along with TobraDex ophthalmic ointment. Two sterile patches and a Post eye shield were taped into position. The patient was transported to the recovery room in stable condition. Pathology: none sent Condition: stable Disposition: same day
[2017-09-13 08:41] VITALS: BP 101/59; PULSE 79
[2017-09-13] MEDS ORDERED: GENTAMICIN/PREDNISOL AC OPHTH OINT 3.5GM OPHTHALMIC ONE (23:00)
[2017-09-13] MEDS ORDERED: BUPIVACAINE (PF) 0.75% 5 ML, LIDOCAINE 4% (PF) 5 ML, HYALURONIDASE, HUMAN RECOMB 150 UNIT MISCELLANE ONE ×3 (23:00)
[2017-09-13] MEDS ORDERED: TIMOLOL 0.5% OPHTH SOLN (PF) 0.2 ML DROPERETTE OP ONE (23:00)
== END 2017-09-13 08:59 | disposition home or self-care (01) ==
LOC: OR 06:53
PROVIDERS: ATTEND Ophthalmology
DX: H26.9 Unspecified cataract (principal); I10 Essential (primary) hypertension; E78.5 Hyperlipidemia, unspecified; J45.909 Unspecified asthma, uncomplicated; G47.33 Obstructive sleep apnea (adult) (pediatric); F41.9 Anxiety disorder, unspecified; K21.9 Gastro-esophageal reflux disease without esophagitis; Z79.2 Long term (current) use of antibiotics; Z79.899 Other long term (current) drug therapy
CPT/HCPCS: 66984; V2632; J2001; J2250; J3470; J0171; J3010; J2704

== ENCOUNTER → 2017-10-05 | Outpatient (CLI) | payer BC ==
--- NOTE | 2017-10-05 08:28 | CT ---
EXAMINATION TYPE: CT abdomen w con DATE OF EXAM: 10/05/2017 COMPARISON: CT chest 08/24/2017 HISTORY: Abn CT chest, Rt renal mass, history of breast CA and lymphoma CT DLP: 842.2 mGycm CONTRAST: CT scan of the abdomen is performed with Oral Contrast and with IV Contrast, patient injected with 1 00 mL of Omnipaque 300. FINDINGS: LUNG BASES-: Stable pulmonary nodules within the right middle lobe right lower lobe and left lower lo be as well as a calcified granuloma right lower lobe. Metastatic disease is not excluded. Trace left effusion. Partially imaged left-sided saline implant. Small sliding-type hiatal hernia. LIVER/GB: No calcified gallstones. No space occupying hepatic lesion. Biliary tree is of normal ca liber. PANCREAS: No inflammation. No distinct mass. SPLEEN: Partial splenectomy changes noted. ADRENALS: No nodule. No thickening. KIDNEYS/BLADDER: Exophytic solid renal mass on the lateral margin lower pole right kidney measures 2 .2 x 1.9 x 2.2 cm. No additional solid or cystic renal lesions identified at this time. No hydronephr osis. No nephrolithiasis. BOWEL: Normal appendix. Normal bowel caliber. No inflammation. LYMPH NODES: No greater than 1cm abdominal or pelvic lymph nodes are appreciated. Retroperitoneal neville rgical clips in place. AORTA: No significant abnormality. OSSEOUS STRUCTURES: No significant abnormality is seen. OTHER: No significant additional abnormality is seen. IMPRESSION: 1. Exophytic solid renal mass right kidney as discussed above is felt to reflect malignancy until pro behzad otherwise. 2. Stable left pulmonary nodules could reflect calcified and noncalcified granulomatous disease howev er metastatic disease is not excluded.
== END | disposition home or self-care (01) ==
LOC: RADCTMAIN 07:23
PROVIDERS: ATTEND Urology
DX: N28.89 Other specified disorders of kidney and ureter (principal)
CPT/HCPCS: 74160; Q9967

== ENCOUNTER 2017-10-06 10:02 | Inpatient (IN) | payer BC ==
[~2017-10-06 10:02] MED LIST changes: +DEXAMETHASONE SOD PHOSPHATE 10 MG/ML 1 ML VIAL IV ONE; +LIDOCAINE 1% 20 ML VIAL (10MG/ML) FOR IV START INTRADERMA PRN; +MIDAZOLAM 2 MG/2 ML VIAL IV PRN; +ONDANSETRON 4 MG/2 ML VIAL IVP ONE; +Pre Op ABX Message 1 EACH MISC MISCELLANE ONE; +SCOPOLAMINE 1.5MG/72HR PATCH TRANSDERM ONE
[2017-10-06] MEDS ORDERED: DEXAMETHASONE SOD PHOS (MDV) 100 MG/10 ML VIAL ONE (12:17)
[2017-10-06] MEDS ORDERED: PROPOFOL 10 MG/ML 20 ML VIAL IV ONE (12:17)
[2017-10-06] MEDS ORDERED: MIDAZOLAM 2 MG/2 ML VIAL ONE (12:17)
[2017-10-06] MEDS ORDERED: ROCURONIUM BROMIDE 10 MG/ML 10 ML VIAL IV ONE (12:17)
[2017-10-06] MEDS ORDERED: LIDOCAINE 1% INJ 10MG/ML (20 ML MDV) ONE (12:17)
[2017-10-06] MEDS ORDERED: SUCCINYLCHOLINE CHLORIDE VIAL 200 MG/10 ML VIAL IV ONE (12:17)
[2017-10-06] MEDS ORDERED: fentaNYL (PF) 50 MCG/ML 2 ML AMP ONE (12:17)
[2017-10-06] MEDS ORDERED: SODIUM CHLORIDE 0.9% 50 ML with ceFAZolin 2,000 MG IV ONE ×2 (12:55)
[2017-10-06] MEDS ORDERED: LACTATED RINGERS 1,000 ML IV ONE (13:04)
[2017-10-06] MEDS ORDERED: BUPIVACAINE (PF) 0.5% 30 ML VIAL SQ ONE (13:18)
[2017-10-06] MEDS ORDERED: ALPRAZolam 0.25 MG TAB PO PRN (13:36)
[2017-10-06] MEDS ORDERED: LORATADINE 10 MG TAB PO PRN (13:36)
--- NOTE | 2017-10-06 13:48 | P.OP ---
Date of Procedure: 10/06/17 Preoperative Diagnosis: Bilateral pulmonary infiltrates Postoperative Diagnosis: Same Procedure(s) Performed: Left thoracoscopic lung biopsy Anesthesia: GETA Surgeon: Antelmo Peralta Compliance Representative Dealer #1: Tex Ku Estimated Blood Loss (ml): 5 IV fluids (ml): 800 Urine output (ml): 40 Pathology: other (Biopsies of superior segment left lower lobe and lingula were both sent for pathology and cultures) Condition: stable Disposition: PACU Indications for Procedure: 62 year old female with history of breast cancer presents with worsening dyspnea in consultation from Dr. Valadez. Computed tomography scan had demonstrated both areas of scarring and areas of interstitial infiltrate. Operative Findings: Anesthesia was unable to pass a 37 mm or 35 mm dual lumen endotracheal tube. A 7-Tajik tube was placed. Bronchoscopy was performed and no evidence of tracheal stenosis could be identified. Presumably the cords are just narrow. The tip of the endotracheal tube was positioned in the right mainstem bronchus with the cuff in the distal trachea. The patient was turned in the right lateral decubitus position and the left chest sterilely prepped and draped. 3 one-inch incisions were made in the left chest. These were carried down through skin and subcutaneous tissue to the pleural space and the pleural space was entered. A standard Thoracoport was placed through one site and 211 mm ports were placed through the other sites. CO2 insufflation was utilized to generate a pneumothorax. Wedge resection of the superior segment of the left lower lobe was performed. Wedge resection of the lingula was performed. The specimens were brought out onto the back table and divided with a small portion being sent for culture and the remainder for path. A 28-Tajik chest tube was placed through the most anterior incision and positioned posterior apically. It was secured with an 0 Ethibond suture. Rib blocks were performed at the level of the incisions with half percent Marcaine. Incisions were closed with layers of Vicryl suture. Skin glue and dry sterile dressings were applied. The patient was extubated and transferred to recovery in stable condition.
[2017-10-06] MEDS: HYDROmorphone 1 MG/ML 1 ML SYRINGE IVP PRN ×2 (14:00→14:17)
[2017-10-06] MEDS ORDERED: MORPHINE SULFATE 10 MG/ML SYRINGE IV PRN (14:20)
[2017-10-06] MEDS ORDERED: HYDROcodone/APAP 5-325MG 1 EACH TAB PO PRN (14:20)
[2017-10-06] MEDS ORDERED: IPRATROPIUM-ALBUTEROL 3 ML NEB IH PRN (14:20)
[2017-10-06] MEDS ORDERED: ONDANSETRON 4 MG/2 ML VIAL IVP PRN (14:20)
[2017-10-06] MEDS ORDERED: DEXTROSE 5%-0.45% NACL 1,000 ML IV SCH (14:20)
--- NOTE | 2017-10-06 14:51 | XR ---
EXAMINATION TYPE: XR chest 1V DATE OF EXAM: 10/06/2017 CLINICAL HISTORY: Postoperative biopsy and VATS. TECHNIQUE: Single AP portable upright view of the chest is obtained. COMPARISON: Chest x-ray from June 15, 2017. CT chest August 24, 2017 FINDINGS: There is new left apical chest tube. No sizable pneumothorax is evident bilaterally. There is background emphysematous change. There is low lung volumes with diffuse bilateral interstitial ed frantz and/or less likely infiltrates. Cardiac silhouette size is upper limits of normal. There are calc ified thoracic lymph nodes redemonstrated. Osseous structures are intact. Surgical clips epigastric r egion are redemonstrated. IMPRESSION: New left apical chest tube without sizable pneumothorax. Poor inspiration with new centra l vascular congestion and moderate interstitial edema.
[2017-10-06 15:37] VITALS: BMI 32.3
[2017-10-06] MEDS: IPRATROPIUM-ALBUTEROL 3 ML NEB IH SCH ×2 (15:41→19:42)
[2017-10-06] MEDS: PANTOPRAZOLE 40 MG TABLET PO SCH (16:28)
[2017-10-06] MEDS ORDERED: SERTRALINE 100 MG TAB PO SCH (17:30)
[2017-10-06] MEDS: SYMBICORT 160-4.5 MCG INHALER INHALATION SCH (19:41)
[2017-10-06] MEDS ORDERED: MONTELUKAST 10 MG TAB PO SCH (21:00)
[2017-10-06] MEDS ORDERED: LOSARTAN 25 MG TAB PO SCH (21:00)
[2017-10-06] MEDS ORDERED: ATORVASTATIN 20 MG TAB PO SCH (21:00)
[2017-10-06] MEDS: HYDROcodone/APAP 5-325MG 1 EACH TAB PO PRN (21:27)
[2017-10-06] MEDS: ceFAZolin IN SWFI 2 GM/20 ML SYRINGE IVP SCH (21:27)
[2017-10-06] MEDS: HEPARIN SODIUM,PORCINE 5,000 UNIT/ML 1 ML VIAL SQ SCH (21:27)
[2017-10-07] MEDS: HYDROcodone/APAP 5-325MG 1 EACH TAB PO PRN ×3 (04:19→12:22)
[2017-10-07] MEDS: ceFAZolin IN SWFI 2 GM/20 ML SYRINGE IVP SCH (05:16)
[2017-10-07 06:21] LABS: Anisocytosis Slight; Basophils % (A) 0 %; CH 26.1; CHCM 31.6; Eosinophils # (A) 0.1 k/uL (0-0.7); Eosinophils % (A) 0 %; HDW 2.69; HGB 10.3 gm/dL (11.4-16.0); Hypochromasia Slight; Luc # (Auto) 0.12; Luc % (Auto) 1; Lymphocytes # (A) 1.7 k/uL (1.0-4.8); Lymphocytes % (A) 10 %; MCHC 31.2 g/dL (31.0-37.0); MCV 83.3 fL (80.0-100.0); Mean Platelet Volume 7.1; Monocytes # (A) 0.7 k/uL (0-1.0); Monocytes % (A) 4 %; Neutrophils # (A) 13.8 k/uL (1.3-7.7); Neutrophils % (A) 84 %; RBC 3.96 m/uL (3.80-5.40); RDW 16.9 % (11.5-15.5); WBC 16.4 k/uL (3.8-10.6); WBC (Perox) 17.15
[2017-10-07] MEDS ORDERED: LEVOTHYROXINE 100 MCG TAB PO SCH (06:30)
[2017-10-07 06:32] LABS: ALT 39 U/L (9-52); AST 34 U/L (14-36); Alkaline Phosphatase 77 U/L (38-126); Anion Gap 8 mmol/L; Blood Urea Nitrogen 23 mg/dL (7-17); Calcium 9.2 mg/dL (8.4-10.2); Carbon Dioxide 29 mmol/L (22-30); Chloride 96 mmol/L (98-107); Glucose 121 mg/dL (74-99); Non-African American GFR(MDRD) >60 (>60 ml/min/1.73 sqM); Potassium 4.3 mmol/L (3.5-5.1); Sodium 133 mmol/L (137-145); Total Bilirubin 0.3 mg/dL (0.2-1.3); Total Protein 6.4 g/dL (6.3-8.2)
[2017-10-07] MEDS: PANTOPRAZOLE 40 MG TABLET PO SCH (06:35)
[2017-10-07] MEDS: IPRATROPIUM-ALBUTEROL 3 ML NEB IH SCH ×3 (07:48→15:13)
[2017-10-07] MEDS: SYMBICORT 160-4.5 MCG INHALER INHALATION SCH (07:48)
[2017-10-07 08:34] VITALS: TEMP 97.6
--- NOTE | 2017-10-07 08:37 | P.PN ---
Subjective Progress Note Date: 10/07/17 Principal diagnosis: Bilateral pulmonary infiltrates. History of Hodgkin's lymphoma and breast cancer with chemo and radiation treatment and mastectomy, asthma, GERD, hyperlipidemia, hypertension, sleep apnea, hypothyroidism, previous tobacco dependence. POD #1 left thoracoscopy and lung biopsy. Patient's currently sitting up in bed in no acute distress. States pain is well -controlled with current medications. No new complaints. Objective - Vital Signs Vital signs: Vital Signs Temp 99.3 F 10/07/17 04:00 Pulse 92 10/07/17 08:02 Resp 18 10/07/17 04:00 BP 109/50 10/07/17 04:00 Pulse Ox 96 10/07/17 04:00 Intake & Output 10/06/17 10/07/17 10/07/17 18:59 06:59 18:59 Intake Total 1500 Output Total 78 155 Balance 1422 -155 Weight 82.7 kg 83 kg Intake: IV 1500 Output: Chest Tube Drainage 35 155 Chest Tube Left Lower 35 155 Posterior Chest Urine 40 Estimated Blood Loss 3 Other: # Voids 0 - Constitutional General appearance: Present: cooperative, no acute distress - Respiratory Details: Lungs sounds diminished bilaterally. Respirations even, nonlabored. Currently on room air infection saturation 96%. Able to achieve 1009 L on incentive spirometer. Left pleural chest tube to -20 cm wall suction, 155 mL serosanguineous drainage overnight, 300 mL since surgery. No air leak present. Chest x-ray reviewed, stable. - Cardiovascular Details: S1, S2 present. Regular rate and rhythm, normal sinus rhythm on telemetry. Palpable radial, DP, PT pulses bilaterally. No edema present. - Gastrointestinal Gastrointestinal Comment(s): Abdomen soft, nontender, nondistended. Active bowel sounds 4 quadrants. Tolerating diet. - Genitourinary Genitourinary Comment(s): Continues to void clear, yellow urine. - Integumentary Integumentary Comment(s): Left lateral chest incisions covered with bandages. - Neurologic Neurologic: Present: CNII-XII intact - Musculoskeletal Musculoskeletal: Present: gait normal, strength equal bilaterally - Psychiatric Psychiatric: Present: A&O x's 3, appropriate affect, intact judgment & insight - Allied health notes Allied health notes reviewed: nursing - Labs CBC & Chem 7: 10/07/17 05:57 10/07/17 05:57 Labs: Abnormal Lab Results - Last 24 Hours (Table) 10/07/17 10/07/17 Range/Units 05:57 05:57 WBC 16.4 H (3.8-10.6) k/uL Hgb 10.3 L (11.4-16.0) gm/dL Hct 33.0 L (34.0-46.0) % RDW 16.9 H (11.5-15.5) % Neutrophils # 13.8 H (1.3-7.7) k/uL Sodium 133 L (137-145) mmol/L Chloride 96 L (98-107) mmol/L BUN 23 H (7-17) mg/dL Glucose 121 H (74-99) mg/dL Microbiology - Last 24 Hours (Table) 10/06/17 13:27 Acid Fast Bacilli Smear - Final Lung - Left Acid Fast Bacilli Culture - Preliminary 10/06/17 13:27 Acid Fast Bacilli Smear - Final Lung - Left Acid Fast Bacilli Culture - Preliminary 10/06/17 13:27 Fungal Culture - Preliminary Lung - Left 10/06/17 13:27 Fungal Culture - Preliminary Lung - Left - Imaging and Cardiology Chest x-ray: image reviewed Assessment and Plan (1) History of Hodgkin's lymphoma Current Visit: Yes Status: Acute Code(s): Z85.71 - PERSONAL HISTORY OF HODGKIN LYMPHOMA SNOMED Code(s): 382029403 (2) Asthma Current Visit: Yes Status: Chronic Code(s): J45.909 - UNSPECIFIED ASTHMA, UNCOMPLICATED SNOMED Code(s): 171282283 (3) GERD (gastroesophageal reflux disease) Current Visit: Yes Status: Chronic Code(s): K21.9 - GASTRO-ESOPHAGEAL REFLUX DISEASE WITHOUT ESOPHAGITIS SNOMED Code(s): 784757691 (4) Hyperlipidemia Current Visit: Yes Status: Chronic Code(s): E78.5 - HYPERLIPIDEMIA, UNSPECIFIED SNOMED Code(s): 34154202 (5) Hypertension Current Visit: Yes Status: Chronic Code(s): I10 - ESSENTIAL (PRIMARY) HYPERTENSION SNOMED Code(s): 65473323 (6) Sleep apnea Current Visit: Yes Status: Chronic Code(s): G47.30 - SLEEP APNEA, UNSPECIFIED SNOMED Code(s): 40786728 (7) Hypothyroidism Current Visit: Yes Status: Chronic Code(s): E03.9 - HYPOTHYROIDISM, UNSPECIFIED SNOMED Code(s): 41567527 (8) History of mastectomy Current Visit: No Status: Resolved Code(s): Z90.10 - ACQUIRED ABSENCE OF UNSPECIFIED BREAST AND NIPPLE SNOMED Code(s): 026971153 (9) History of chemotherapy Current Visit: No Status: Resolved Code(s): Z92.21 - PERSONAL HISTORY OF ANTINEOPLASTIC CHEMOTHERAPY SNOMED Code(s): 803924522 (10) History of radiation therapy Current Visit: No Status: Resolved Code(s): Z92.3 - PERSONAL HISTORY OF IRRADIATION SNOMED Code(s): 072230933 (11) Pulmonary infiltrate Current Visit: Yes Status: Acute Code(s): R91.8 - OTHER NONSPECIFIC ABNORMAL FINDING OF LUNG FIELD SNOMED Code(s): 058669355 Plan: 1. Chest tube placed to waterseal and clamped. Will assess for air leak in 2 hours. If no air leak chest tube will be discontinued with follow-up x-ray 2 hours later. If chest x-ray stable patient will be discharged to home later today. 2. Encourage incentive spirometry use. Encourage continued smoking cessation. 3. Pain management with ordered medications. 4. Continue current medication regimen. 5. GI/DVT prophylaxis. 6. Appreciate pulmonology recommendations. 7. More recommendations to follow. Expect the patient will be discharged to home later today. Time with Patient: Greater than 30
[2017-10-07] MEDS: HEPARIN SODIUM,PORCINE 5,000 UNIT/ML 1 ML VIAL SQ SCH (08:43)
[2017-10-07] MEDS ORDERED: FUROSEMIDE 20 MG TAB PO SCH (09:00)
[2017-10-07] MEDS ORDERED: SPIRONOLACTONE-HCTZ 25-25MG 1 EACH TAB PO SCH (09:00)
[2017-10-07] MEDS ORDERED: ARIPiprazole 2 MG TAB PO SCH (09:00)
[2017-10-07] MEDS ORDERED: POTASSIUM CHLORIDE ER 10 MEQ TAB.ER.PRT PO SCH (09:00)
[2017-10-07] MEDS ORDERED: METOPROLOL SUCCINATE (ER) 25 MG TAB.ER.24H PO SCH (09:00)
--- NOTE | 2017-10-07 09:12 | XR ---
EXAMINATION TYPE: XR chest 1V DATE OF EXAM: 10/07/2017 COMPARISON: 10/06/2017 INDICATION: Postop VATS TECHNIQUE: Single frontal view of the chest is obtained. FINDINGS: The heart size is normal. The pulmonary vasculature is somewhat prominent. There is a left-sided chest tube directed towards the left apex. No pneumothorax is evident. There is a oval area of increased density adjacent to the chest tube. IMPRESSION: 1. Improving lung markings from prior study. 2. Left-sided chest tube without pneumothorax
[2017-10-07 11:17] VITALS: BP 118/62; RESP 14
[2017-10-07 11:35] VITALS: PULSE 100
--- NOTE | 2017-10-07 12:07 | P.CNPUL ---
History of Present Illness Consult date: 10/07/17 Requesting physician: Antelmo Peralta Reason for consult: abnormal CXR/CT History of present illness: This is a very pleasant 62-year-old female patient with a known history of breast cancer, Hodgkin's lymphoma, gastroesophageal reflux disease, hypertension , hyperlipidemia, obstructive sleep apnea, hypothyroidism. She also has a history of mild intermittent chronic bronchial asthma and follows with Dr. Morales in our office for the same. She does have a remote history of previous tobacco use. He also has a history of pulmonary nodules and was admitted here yesterday for a left thorascopic lung biopsy. Tolerated the procedure very well. She is seen today in consultation on the selective care unit. She is awake and alert in no acute distress. Her chest x-ray revealed a left-sided chest tube without evidence of pneumothorax. He is maintaining O2 saturations at 100% on room air. She's been afebrile. Hemodynamically stable. No pulmonary complaints. Review of Systems 14 point review of system was conducted. All negative other than as mentioned in the HPI. 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 left breast reconstruction,spleenectomy Past Anesthesia/Blood Transfusion Reactions: No Reported Reaction Past Psychological History: Anxiety Smoking Status: Former smoker Past Alcohol Use History: Rare Additional Past Alcohol Use History / Comment(s): quit smoking 1978, only smoked for 5 yrs. 1ppd Past Drug Use History: None Reported - Past Family History Mother Family Medical History: No Reported History Brother(s) Additional Family Medical History / Comment(s): MS Medications and Allergies Home Medications Medication Instructions Recorded Confirmed Type ALPRAZolam [Xanax] 0.25 mg PO TID PRN 10/05/16 10/06/17 History Budesonide-Formot 160-4.5 Mcg 2 puff INHALATION RT-BID 10/05/16 10/06/17 History [Symbicort 160-4.5 Mcg Inhaler] Levothyroxine Sodium [Synthroid] 100 mcg PO DAILY 10/05/16 10/06/17 History Losartan [Cozaar] 25 mg PO HS 10/05/16 10/06/17 History Metoprolol Succinate (ER) [Toprol 25 mg PO DAILY 10/05/16 10/06/17 History XL] Montelukast [Singulair] 10 mg PO HS 10/05/16 10/06/17 History Omeprazole [PriLOSEC] 40 mg PO AC-BID 10/05/16 10/06/17 History Sertraline [Zoloft] 100 mg PO W/SUPPER 10/05/16 10/06/17 History Simvastatin [Zocor] 40 mg PO HS 10/05/16 10/06/17 History ARIPiprazole [Abilify] 2 mg PO DAILY 04/06/17 10/06/17 History Albuterol Sulfate [Proair Hfa] 2 puff INHALATION RT-Q6H PRN 04/06/17 10/06/17 History Furosemide [Lasix] 20 mg PO DAILY #30 tab 04/08/17 10/06/17 Rx Potassium Chloride ER [K-Dur 10] 10 meq PO DAILY #30 tab 04/08/17 10/06/17 Rx Acyclovir 400 mg PO DAILY PRN 05/13/17 10/06/17 History Acyclovir [Zovirax] 1 applic TOPICAL 5XD PRN 05/13/17 10/06/17 History Cetirizine HCl [Zyrtec] 10 mg PO DAILY PRN 05/13/17 10/06/17 History Ranitidine HCl [Zantac] 150 mg PO HS PRN 05/13/17 10/06/17 History Spironolactone-Hctz 25-25Mg 1 tab PO DAILY 05/13/17 10/06/17 History [Aldactazide 25-25 MG] Allergies Allergy/AdvReac Type Severity Reaction Status Date / Time No Known Allergies Allergy Verified 10/06/17 14:34 Physical Exam Vitals: Vital Signs Temp Pulse Pulse Resp BP Pulse Ox 10/07/17 11:34 100 10/07/17 11:26 14 10/07/17 11:20 96 11/10/17 11:13 97.6 F 99 14 118/62 100 10/07/17 08:02 92 10/07/17 08:00 97.6 F 101 H 16 108/47 96 10/07/17 07:49 92 10/07/17 04:00 99.3 F 93 18 109/50 96 10/07/17 00:00 98.6 F 97 18 108/50 95 10/06/17 20:00 99.3 F 103 H 16 116/53 94 L 10/06/17 19:57 88 10/06/17 19:42 96 10/06/17 16:00 97.5 F L 86 14 102/57 99 10/06/17 15:56 94 10/06/17 15:42 92 10/06/17 15:40 83 16 108/53 96 10/06/17 15:31 89 14 93/55 99 10/06/17 15:24 84 16 97/48 100 10/06/17 14:42 79 14 98/45 99 10/06/17 14:29 84 14 98/46 99 10/06/17 14:14 84 16 90/51 100 10/06/17 13:59 82 16 101/53 100 10/06/17 13:44 97 F L 94 16 110/56 98 Intake and Output 10/06/17 10/07/17 10/07/17 22:59 06:59 14:59 Intake Total 420 Output Total 35 155 50 Balance -35 -155 370 Intake: Intake, IV Titration 120 Amount Dextrose 5%-0.45% NaCl 1, 120 000 ml @ 40 mls/hr IV . Q24H [facility] Rx#:[id number] Oral 300 Output: Chest Tube Drainage 35 155 50 Chest Tube Left Lower 35 155 50 Posterior Chest Other: # Voids 1 0 1 Weight 82.7 kg 83 kg GENERAL EXAM: Alert, active, comfortable in no apparent distress. HEAD: Normocephalic. EYES: Normal reaction of pupils, equal size. NOSE: Clear with pink turbinates. THROAT: No erythema or exudates. NECK: No masses, no JVD. CHEST: No chest wall deformity. LUNGS: Equal air entry with no crackles, wheeze, rhonchi or dullness. CVS: S1 and S2 normal with no audible murmur, regular rhythm. ABDOMEN: No hepatosplenomegaly, normal bowel sounds, no guarding or rigidity. SPINE: No scoliosis or deformity SKIN: No rashes CENTRAL NERVOUS SYSTEM: No focal deficits, tone is normal in all 4 extremities. EXTREMITIES: There is no peripheral edema. No clubbing, no cyanosis. Peripheral pulses are intact. Results - Laboratory Findings CBC and BMP: 10/07/17 05:57 10/07/17 05:57 Abnormal lab findings: Abnormal Labs 10/07/17 10/07/17 05:57 05:57 WBC 16.4 H Hgb 10.3 L Hct 33.0 L RDW 16.9 H Neutrophils # 13.8 H Sodium 133 L Chloride 96 L BUN 23 H Glucose 121 H - Diagnostic Findings Chest x-ray: image reviewed Assessment and Plan Assessment: Impression: #1 Bilateral interstitial infiltrates in a patient with a previous history of breast cancer and lymphoma. Status post left thorascopic lung biopsy. Postoperative day #1. #2 History of breast cancer status post mastectomy with breast reconstruction in the . #3 Hodgkin's lymphoma status post chemo/radiation. #4 Mild intermittent asthma, currently inactive and stable. #5 Remote history of smoking. #6 Hypothyroidism. #7 Gastroesophageal reflux disease. #8 Hypertension. #9 Hyperlipidemia. #10 History of depression. Plan: The patient was seen and evaluated by Dr. Salcedo. Her chest x-ray was reviewed. The patient subsequent had her chest tube removed and the plan is for repeat chest x-ray at 1 PM today. Based on these findings the patient most likely will be able to discharge home today and follow-up with Dr. Valadez in our office in 1-2 weeks' time. We will repeat a chest x-ray then. We will go over pathology results at that time. She is however encouraged to call sooner with any recurrence of symptoms or other questions or concerns. I, the cosigning physician, have performed a history and physical examination on the patient. Lung sounds are clear bilateral posterior bases more so on the left. Maintaining good O2 saturations in the 90s on room air. I have discussed the assessment and plan of care with my nurse practitioner, Prachi Jones. I attest the above documented note as dictated by her. Time with Patient: Greater than 30
--- NOTE | 2017-10-07 13:12 | XR ---
EXAMINATION TYPE: XR chest 2V DATE OF EXAM: 10/07/2017 COMPARISON: 10/17/2017 earlier exam INDICATION: Chest tube removal TECHNIQUE: Frontal and lateral views of the chest are obtained. FINDINGS: The heart size is normal. The pulmonary vasculature is normal. There is mild infiltrate at the left base, likely subsegmental atelectasis. Left-sided chest tube is been removed. No pneumothorax is evident. Calcified lymph nodes remain in the. IMPRESSION: 1. No pneumothorax post left-sided chest tube removal. 2. Some subsegmental atelectasis has developed at the left base.
--- NOTE | 2017-10-07 13:45 | P.DS ---
Providers Date of admission: 10/06/17 10:02 Attending physician: Antelmo Peralta Consults: 10/06/17 14:20 Consult Physician Routine Consulting Provider: Walt Valadez Reason/Comments: pulmonary management, known to you Do you want consulting provider notified?: Yes Primary care physician: Stated None - Discharge Diagnosis(es) (1) History of Hodgkin's lymphoma Current Visit: Yes Status: Acute (2) Asthma Current Visit: Yes Status: Chronic (3) GERD (gastroesophageal reflux disease) Current Visit: Yes Status: Chronic (4) Hyperlipidemia Current Visit: Yes Status: Chronic (5) Hypertension Current Visit: Yes Status: Chronic (6) Sleep apnea Current Visit: Yes Status: Chronic (7) Hypothyroidism Current Visit: Yes Status: Chronic (8) Pulmonary infiltrate Current Visit: Yes Status: Acute Hospital Course: FINAL DIAGNOSIS: 1. Bilateral pulmonary infiltrates 2. History of Hodgkin's lymphoma and breast cancer with chemo, radiation treatment, and mastectomy 3. Asthma 4. GERD 5. Hyperlipidemia 6. Hypertension 7. Sleep apnea 8. Hypothyroidism 9. Previous tobacco dependence PRINCIPAL PROCEDURE: 1. Left thoracoscopy and lung biopsy HISTORY OF PRESENT ILLNESS: This 62-year-old female was following with Dr. Valadez for her chronic bronchial asthma. She has a history of pulmonary nodules and scarring which has been followed with serial CT scans. She's continued to have episodes of increasing shortness of breath. She was referred to Dr. Peralta for lung biopsy for a definitive diagnosis and treatment options. Recommendations were made to proceed with left thoracoscopic lung biopsy. All risks and benefits were explained to the patient in detail, and she consented to proceed with surgery HOSPITAL COURSE: The patient was brought to the hospital on 10/06/2017, taken to the preoperative area, prepared in the usual fashion, and subsequently taken to the operating room where Dr. Peralta performed an elective left thoracoscopy and lung biopsy. Upon completion of surgery the patient was extubated, taken to the recovery room where she was monitored, and was subsequently admitted to [address] [place] [address] for further monitoring and rehabilitation. Throughout the night of surgery she remained stable, she was tolerating her diet, her pain was well controlled, and she was able to ambulate. On postoperative day #1 her pleural chest tube was discontinued without incident. A repeat chest x-ray demonstrated no pneumothorax. She was ready to be discharged home. She received written and verbal instruction regarding her medications, activity restrictions, signs and symptoms requiring physician medication, and follow-up appointments. COMPLICATIONS: There were no postoperative complications. Patient Condition at Discharge: Stable Plan - Discharge Summary Discharge Rx Participant: Yes New Discharge Prescriptions: No Action ALPRAZolam [Xanax] 0.25 mg PO TID PRN PRN Reason: Anxiety Budesonide-Formot 160-4.5 Mcg [Symbicort 160-4.5 Mcg Inhaler] 2 puff INHALATION RT-BID Simvastatin [Zocor] 40 mg PO HS Sertraline [Zoloft] 100 mg PO W/SUPPER Montelukast [Singulair] 10 mg PO HS Losartan [Cozaar] 25 mg PO HS Metoprolol Succinate (ER) [Toprol XL] 25 mg PO DAILY Levothyroxine Sodium [Synthroid] 100 mcg PO DAILY Omeprazole [PriLOSEC] 40 mg PO AC-BID Albuterol Sulfate [Proair Hfa] 2 puff INHALATION RT-Q6H PRN PRN Reason: Shortness Of Breath ARIPiprazole [Abilify] 2 mg PO DAILY Furosemide [Lasix] 20 mg PO DAILY #30 tab Potassium Chloride ER [K-Dur 10] 10 meq PO DAILY #30 tab Ranitidine HCl [Zantac] 150 mg PO HS PRN PRN Reason: Heartburn Acyclovir [Zovirax] 1 applic TOPICAL 5XD PRN PRN Reason: Cold Sores Acyclovir 400 mg PO DAILY PRN PRN Reason: Cold Sores Cetirizine HCl [Zyrtec] 10 mg PO DAILY PRN PRN Reason: Allergy Symptoms Spironolactone-Hctz 25-25Mg [Aldactazide 25-25 MG] 1 tab PO DAILY Discharge Medication List ALPRAZolam [Xanax] 0.25 mg PO TID PRN 10/05/16 [History] Budesonide-Formot 160-4.5 Mcg [Symbicort 160-4.5 Mcg Inhaler] 2 puff INHALATION RT-BID 10/05/16 [History] Levothyroxine Sodium [Synthroid] 100 mcg PO DAILY 10/05/16 [History] Losartan [Cozaar] 25 mg PO HS 10/05/16 [History] Metoprolol Succinate (ER) [Toprol XL] 25 mg PO DAILY 10/05/16 [History] Montelukast [Singulair] 10 mg PO HS 10/05/16 [History] Omeprazole [PriLOSEC] 40 mg PO AC-BID 10/05/16 [History] Sertraline [Zoloft] 100 mg PO W/SUPPER 10/05/16 [History] Simvastatin [Zocor] 40 mg PO HS 10/05/16 [History] ARIPiprazole [Abilify] 2 mg PO DAILY 04/06/17 [History] Albuterol Sulfate [Proair Hfa] 2 puff INHALATION RT-Q6H PRN 04/06/17 [History] Furosemide [Lasix] 20 mg PO DAILY #30 tab 04/08/17 [Rx] Potassium Chloride ER [K-Dur 10] 10 meq PO DAILY #30 tab 04/08/17 [Rx] Acyclovir 400 mg PO DAILY PRN 05/13/17 [History] Acyclovir [Zovirax] 1 applic TOPICAL 5XD PRN 05/13/17 [History] Cetirizine HCl [Zyrtec] 10 mg PO DAILY PRN 05/13/17 [History] Ranitidine HCl [Zantac] 150 mg PO HS PRN 05/13/17 [History] Spironolactone-Hctz 25-25Mg [Aldactazide 25-25 MG] 1 tab PO DAILY 05/13/17 [ History] Follow up Appointment(s)/Referral(s): Antelmo Peralta MD [STAFF PHYSICIAN] - 10/26/17 1:00 pm Walt Valadez DO [Doctor of Osteopathic Medicine] - 10/25/17 2:45 pm Activity/Diet/Wound Care/Special Instructions: DISCHARGE INSTRUCTIONS: 1. No driving for 1 week, or until physician gives their ok. 2. No lifting, pushing, or pulling more than 10 pounds for 2 weeks. The physician will advise of any restriction changes. 3. Continue pain control per as needed orders. 4. Continue with incentive spirometry until otherwise directed by the physician. 5. May shower daily starting Oct 09 using liquid antibacterial soap. 6. Routine incision care. No powders, lotions, ointments on incisions. 7. Please call surgeon/TAX ATTORNEY for temp greater than 101 F or purulent drainage from incisions.
== END 2017-10-07 15:40 | disposition home or self-care (01) | DRG 165 ==
LOC: 2ORWHC 10:02 → EDSTATUS 11:55 → 6SEL 13:48
PROVIDERS: ADMIT Thoracic Surgery (Cardiothoracic Vascular Surgery); ATTEND Thoracic Surgery (Cardiothoracic Vascular Surgery)
PROC: 0BBJ0ZZ Excision of Left Lower Lung Lobe, Open Approach (ICD-10-PCS; principal; 2017-10-06 11:55)
DX: R91.8 Other nonspecific abnormal finding of lung field (principal); I11.0 Hypertensive heart disease with heart failure; I50.9 Heart failure, unspecified; E03.9 Hypothyroidism, unspecified; E78.5 Hyperlipidemia, unspecified; G47.33 Obstructive sleep apnea (adult) (pediatric); J45.20 Mild intermittent asthma, uncomplicated; K21.9 Gastro-esophageal reflux disease without esophagitis; F41.9 Anxiety disorder, unspecified; M85.80 Other specified disorders of bone density and structure, unspecified site; Z79.51 Long term (current) use of inhaled steroids; Z79.899 Other long term (current) drug therapy; Z85.3 Personal history of malignant neoplasm of breast; Z85.72 Personal history of non-Hodgkin lymphomas; Z87.891 Personal history of nicotine dependence; Z90.10 Acquired absence of unspecified breast and nipple; Z92.21 Personal history of antineoplastic chemotherapy; Z92.3 Personal history of irradiation
CPT/HCPCS: 71010; 71020; 80053; 85025; 87102; 87116; 87206; 88307; 94640

== ENCOUNTER → 2018-06-06 | Outpatient (CLI) | payer BC ==
--- NOTE | 2018-06-06 13:47 | XR ---
EXAMINATION TYPE: XR lumbar spine 2 or 3V DATE OF EXAM: 06/06/2018 CLINICAL HISTORY: Low back pain. TECHNIQUE: Frontal and lateral images of the lumbar spine are obtained. COMPARISON: CT abdomen October 05 2717 FINDINGS: There are 5 lumbar type vertebral bodies identified assuming hypoplastic bilateral T12 rib s. The lumbar spine shows satisfactory alignment without evidence of acute fracture or dislocation. Vertebral body heights and disk space heights are within normal limits. Numerous surgical clips in th e overlying soft tissue are redemonstrated. Some facet arthropathy lower lumbar levels is again seen. IMPRESSION: Persistent facet arthropathy lower lumbar spine otherwise fairly unremarkable study.
--- NOTE | 2018-06-06 13:50 | XR ---
EXAMINATION TYPE: XR thoracic spine complete DATE OF EXAM: 06/06/2018 CLINICAL HISTORY: Mid back pain for 4 days. On high dose steroids for bronchiolitis obliterans. Histo ry of Hodgkin lymphoma years ago. TECHNIQUE: Frontal, lateral, and swimmer's view of thoracic spine are obtained. COMPARISON: CT chest August 24, 2017. FINDINGS: Osseous structures are demineralized. Thoracic spine show satisfactory alignment without ev idence of acute fracture or dislocation. Vertebral body heights and disc space heights are fairly we ll preserved. There are calcified mediastinal lymph nodes redemonstrated. Surgical changes epigastric region with multiple clips are redemonstrated. IMPRESSION: As above.
== END | disposition home or self-care (01) ==
LOC: RADXRMAIN 11:16
PROVIDERS: ATTEND Internal Medicine
DX: I89.8 Other specified noninfective disorders of lymphatic vessels and lymph nodes (principal); M48.8X6 Other specified spondylopathies, lumbar region; Z98.890 Other specified postprocedural states
CPT/HCPCS: 72072; 72100

== ENCOUNTER → 2018-06-15 | Outpatient (CLI) | payer BC ==
--- NOTE | 2018-06-16 07:40 | US ---
EXAMINATION TYPE: US kidneys/renal and bladder DATE OF EXAM: 06/15/2018 COMPARISON: CT abdomen October 05 2017, US 2011 CLINICAL HISTORY: Z79.52 Chronic steroid use. Bilateral flank and back pain x 3 weeks, partial right nephrectomy in 2017 EXAM MEASUREMENTS: Right Kidney: 10.1 x 4.7 x 4.7 cm Left Kidney: 11.8 x 5.6 x 4.8 cm Difficult and limited study due to patient body habitus Right Kidney: no hydronephrosis or masses seen Left Kidney: no hydronephrosis or masses seen Bladder: wnl Bilateral Jets seen: no There is no evidence for hydronephrosis at this point in time. No nephrolithiasis is seen. No lakesha s are identified. The urinary bladder is anechoic. Bilateral ureteral jets are not seen. IMPRESSION: No suspicious finding is seen to account for patient's symptoms.
== END | disposition home or self-care (01) ==
LOC: RADBDWWP 14:57
PROVIDERS: ATTEND Internal Medicine
DX: R10.9 Unspecified abdominal pain (principal)
CPT/HCPCS: 76770

== ENCOUNTER 2018-06-19 10:17 | Inpatient (IN) | payer BC ==
[2018-06-19] MEDS ORDERED: HYDROmorphone 1 MG/ML 1 ML SYRINGE IVP STA (10:30)
--- NOTE | 2018-06-19 10:33 | ED ---
General Adult HPI - General Stated complaint: Diff Breathing Time Seen by Provider: 06/19/18 10:17 Source: RN notes reviewed - History of Present Illness Initial comments: This is a 63-year-old female presents to the emergency emergency Department complaining of difficulty breathing. 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 Patient states this episode of difficulty breathing started 2 days ago. Patient denies any fever chills. Patient denies chest pain or palpitations. Patient denies any cough or sputum production. Patient states she has noted quite a bit of a weight gain since she's been on steroids but over the last few days has noticed a weight gain as well. Patient denies any calf pain she has noticed some swelling in the legs. Patient denies any abdominal pain patient denies nausea vomiting or diarrhea. - Related Data Home Medications Medication Instructions Recorded Confirmed Budesonide-Formot 160-4.5 Mcg 2 puff INHALATION RT-BID 10/05/16 06/19/18 [Symbicort 160-4.5 Mcg Inhaler] Levothyroxine Sodium [Synthroid] 100 mcg PO DAILY 10/05/16 06/19/18 Losartan [Cozaar] 25 mg PO DAILY 10/05/16 06/19/18 Metoprolol Succinate (ER) [Toprol 25 mg PO DAILY 10/05/16 06/19/18 XL] Montelukast [Singulair] 10 mg PO HS 10/05/16 06/19/18 Sertraline [Zoloft] 200 mg PO AC-SUPPER 10/05/16 06/19/18 Simvastatin [Zocor] 40 mg PO HS 10/05/16 06/19/18 ARIPiprazole [Abilify] 2 mg PO DAILY 04/06/17 06/19/18 Albuterol Sulfate [Proair Hfa] 2 puff INHALATION RT-Q6H PRN 04/06/17 06/19/18 Acyclovir 400 mg PO DAILY PRN 05/13/17 06/19/18 Acyclovir [Zovirax] 1 applic TOPICAL 5XD PRN 05/13/17 06/19/18 Cetirizine HCl [Zyrtec] 10 mg PO HS PRN 05/13/17 06/19/18 Ranitidine HCl [Zantac] 150 mg PO HS PRN 05/13/17 06/19/18 Spironolactone-Hctz 25-25Mg 1 tab PO DAILY 05/13/17 06/19/18 [Aldactazide 25-25 MG] predniSONE 30 mg PO DAILY 10/28/17 06/19/18 ALPRAZolam [Xanax] 0.5 mg PO TID PRN 06/19/18 06/19/18 Ergocalciferol [Vitamin D2] 50,000 unit PO SA 06/19/18 06/19/18 Ferrous Sulfate [Feosol] 325 mg PO DAILY 06/19/18 06/19/18 Furosemide [Lasix] 40 mg PO DAILY 06/19/18 06/19/18 Omeprazole 40 mg PO BID 06/19/18 06/19/18 Previous Rx's Medication Instructions Recorded Potassium Chloride ER [K-Dur 10] 10 meq PO DAILY #30 tab 04/08/17 Allergies Allergy/AdvReac Type Severity Reaction Status Date / Time No Known Allergies Allergy Verified 06/19/18 11:02 Review of Systems ROS Statement: Those systems with pertinent positive or pertinent negative responses have been documented in the HPI. ROS Other: All systems not noted in ROS Statement are negative. Past Medical History Past Medical History: Asthma, Cancer, Heart Failure, GERD/Reflux, Hyperlipidemia , Hypertension, Sleep Apnea/CPAP/BIPAP, Thyroid Disorder Additional Past Medical History / Comment(s): Hodgkins Lymphoma status post chemo and radiation 1978; Breast CAstatus post mastectomy History of Any Multi-Drug Resistant Organisms: None Reported Past Surgical History: Adenoidectomy, Breast Surgery, Section, Hysterectomy, Orthopedic Surgery, Tonsillectomy Additional Past Surgical History / Comment(s): Spleenectomy, Lapraotomy. Colonoscopy, EGD, Foot surgery, breast reconstruction Past Anesthesia/Blood Transfusion Reactions: No Reported Reaction Smoking Status: Former smoker - Past Family History Mother Family Medical History: No Reported History Brother(s) Additional Family Medical History / Comment(s): MS General Exam - General Exam Comments Initial Comments: GENERAL: Patient is well-developed and well-nourished. Patient is nontoxic and well- hydrated and is in mild distress. ENT: Neck is soft and supple. No significant lymphadenopathy is noted. Oropharynx is clear. Moist mucous membranes. Neck has full range of motion without eliciting any pain. EYES: The sclera were anicteric and conjunctiva were pink and moist. Extraocular movements were intact and pupils were equal round and reactive to light. Eyelids were unremarkable. PULMONARY: Patient has diminished breath sounds bilaterally. No expiratory wheezing was heard CARDIOVASCULAR: Patient is tachycardic at about 105 bpm ABDOMEN: Soft and nontender with normal bowel sounds. No palpable organomegaly was noted. There is no palpable pulsatile mass. SKIN: Skin is clear with no lesions or rashes and otherwise unremarkable. NEUROLOGIC: Patient is alert and oriented x3. Cranial nerves II through XII are grossly intact. Motor and sensory are also intact. Normal speech, volume and content. Symmetrical smile. MUSCULOSKELETAL: Normal extremities with adequate strength and full range of motion. 1+ edema bilaterally LYMPHATICS: No significant lymphadenopathy is noted PSYCHIATRIC: Normal psychiatric evaluation. Course Vital Signs 06/19/18 06/19/18 06/19/18 10:23 10:53 11:30 Temperature 98.9 F Pulse Rate 108 H 98 97 Respiratory 24 20 18 Rate Blood Pressure 113/56 99/54 107/55 O2 Sat by Pulse 97 98 100 Oximetry Medical Decision Making - Medical Decision Making EKG shows sinus tachycardia at 106 bpm WV interval 24 QRS is 146 QT interval 366 QTC is 486. Patient's EKG shows a left bundle branch block when compared this EKG to an old EKG she already had a left bundle branch block in the past. Patient's chest x-ray showed no acute abnormality. Patient's CT of the chest showed no PE and no signs of congestive heart failure. Patient did have a left-sided pleural effusion. Patient did not feel comfortable going home because this morning her breathing was so bad she felt as though she might or pass out. I spoke with Dr. Naqvi he agreed to admit the patient he admitted the patient I wrote admitting orders. I consult the Dr. Valadez - Lab Data Result diagrams: 06/19/18 10:44 06/19/18 10:44 Lab Results 06/19/18 06/19/18 06/19/18 Range/Units 10:44 10:44 10:44 WBC 17.1 H (3.8-10.6) k/uL RBC 4.33 (3.80-5.40) m/uL Hgb 10.9 L (11.4-16.0) gm/dL Hct 34.1 (34.0-46.0) % MCV 78.8 L (80.0-100.0) fL MCH 25.1 (25.0-35.0) pg MCHC 31.8 (31.0-37.0) g/dL RDW 19.4 H (11.5-15.5) % Plt Count 425 (150-450) k/uL Neutrophils % 74 % Lymphocytes % 17 % Monocytes % 7 % Eosinophils % 1 % Basophils % 0 % Neutrophils # 12.6 H (1.3-7.7) k/uL Lymphocytes # 3.0 (1.0-4.8) k/uL Monocytes # 1.2 H (0-1.0) k/uL Eosinophils # 0.1 (0-0.7) k/uL Basophils # 0.0 (0-0.2) k/uL Anisocytosis Slight Microcytosis Slight PT (9.0-12.0) sec INR (<1.2) APTT (22.0-30.0) sec D-Dimer (<0.60) mg/L FEU Sodium 138 (137-145) mmol/L Potassium 4.6 (3.5-5.1) mmol/L Chloride 98 (98-107) mmol/L Carbon Dioxide 30 (22-30) mmol/L Anion Gap 10 mmol/L BUN 31 H (7-17) mg/dL Creatinine 0.90 (0.52-1.04) mg/dL Est GFR (CKD-EPI)AfAm 79 (>60 ml/min/1.73 sqM) Est GFR (CKD-EPI)NonAf 69 (>60 ml/min/1.73 sqM) Glucose 79 (74-99) mg/dL Calcium 9.7 (8.4-10.2) mg/dL Magnesium 2.2 (1.6-2.3) mg/dL Total Bilirubin 0.4 (0.2-1.3) mg/dL AST 25 (14-36) U/L ALT 31 (9-52) U/L Alkaline Phosphatase 69 (38-126) U/L Total Creatine Kinase 41 (30-135) U/L CK-MB (CK-2) 0.9 (0.0-2.4) ng/mL CK-MB (CK-2) Rel Index 2.2 Troponin I 0.019 (0.000-0.034) ng/mL NT-Pro-B Natriuret Pep pg/mL Total Protein 6.3 (6.3-8.2) g/dL Albumin 3.8 (3.5-5.0) g/dL 06/19/18 06/19/18 Range/Units 10:44 10:44 WBC (3.8-10.6) k/uL RBC (3.80-5.40) m/uL Hgb (11.4-16.0) gm/dL Hct (34.0-46.0) % MCV (80.0-100.0) fL MCH (25.0-35.0) pg MCHC (31.0-37.0) g/dL RDW (11.5-15.5) % Plt Count (150-450) k/uL Neutrophils % % Lymphocytes % % Monocytes % % Eosinophils % % Basophils % % Neutrophils # (1.3-7.7) k/uL Lymphocytes # (1.0-4.8) k/uL Monocytes # (0-1.0) k/uL Eosinophils # (0-0.7) k/uL Basophils # (0-0.2) k/uL Anisocytosis Microcytosis PT 9.4 (9.0-12.0) sec INR 0.9 (<1.2) APTT 20.5 L (22.0-30.0) sec D-Dimer 1.22 H (<0.60) mg/L FEU Sodium (137-145) mmol/L Potassium (3.5-5.1) mmol/L Chloride (98-107) mmol/L Carbon Dioxide (22-30) mmol/L Anion Gap mmol/L BUN (7-17) mg/dL Creatinine (0.52-1.04) mg/dL Est GFR (CKD-EPI)AfAm (>60 ml/min/1.73 sqM) Est GFR (CKD-EPI)NonAf (>60 ml/min/1.73 sqM) Glucose (74-99) mg/dL Calcium (8.4-10.2) mg/dL Magnesium (1.6-2.3) mg/dL Total Bilirubin (0.2-1.3) mg/dL AST (14-36) U/L ALT (9-52) U/L Alkaline Phosphatase (38-126) U/L Total Creatine Kinase (30-135) U/L CK-MB (CK-2) (0.0-2.4) ng/mL CK-MB (CK-2) Rel Index Troponin I (0.000-0.034) ng/mL NT-Pro-B Natriuret Pep 996 pg/mL Total Protein (6.3-8.2) g/dL Albumin (3.5-5.0) g/dL Disposition Clinical Impression: BOOP (bronchiolitis obliterans with organizing pneumonia) Disposition: ADMITTED IP TO THIS HOSP Referrals: Michelle Naqvi MD [Primary Care Provider] - 1-2 days Time of Disposition: 12:57
[2018-06-19 11:06] LABS: Anisocytosis Slight; Basophils % (A) 0 %; Eosinophils # (A) 0.1 k/uL (0-0.7); Eosinophils % (A) 1 %; HCT 34.1 % (34.0-46.0); HGB 10.9 gm/dL (11.4-16.0); Lymphocytes % (A) 17 %; MCH 25.1 pg (25.0-35.0); MCHC 31.8 g/dL (31.0-37.0); MCV 78.8 fL (80.0-100.0); Mean Platelet Volume 6.8; Microcytosis Slight; Monocytes # (A) 1.2 k/uL (0-1.0); Monocytes % (A) 7 %; Neutrophils # (A) 12.6 k/uL (1.3-7.7); Neutrophils % (A) 74 %; Platelet Count 425 k/uL (150-450); RBC 4.33 m/uL (3.80-5.40); RDW 19.4 % (11.5-15.5); WBC 17.1 k/uL (3.8-10.6)
[2018-06-19 11:14] LABS: Albumin 3.8 g/dL (3.5-5.0); Calcium 9.7 mg/dL (8.4-10.2); Magnesium 2.2 mg/dL (1.6-2.3); Potassium 4.6 mmol/L (3.5-5.1); Total Bilirubin 0.4 mg/dL (0.2-1.3); Total Protein 6.3 g/dL (6.3-8.2)
[2018-06-19 11:28] LABS: INR 0.9 (<1.2); Partial Thromboplastin Time 20.5 sec (22.0-30.0); Prothrombin Time 9.4 sec (9.0-12.0)
--- NOTE | 2018-06-19 11:28 | XR ---
EXAMINATION TYPE: XR chest 2V DATE OF EXAM: 06/19/2018 COMPARISON: 10/07/2017 and thoracic spine 06/06/2018 HISTORY: 63-year-old female difficulty breathing, shortness of breath for 2 days TECHNIQUE: PA and lateral views FINDINGS: Heart mildly enlarged. Mediastinal and hilar calcified lymph nodes compatible with prior granulomatou s disease. There is diffuse interstitial and vascular prominence with Gen B lines demonstrated. Th ere is a trace effusion on the lateral view. Mild anterior wedging of a midthoracic vertebral body appears new from 06/06/2018. There is osteopenia which limits assessment. IMPRESSION: 1. Correlate for CHF with early interstitial pulmonary edema. 2. Prior granulomatous disease. 3. Mild anterior wedging of a midthoracic vertebral body appears new from 06/06/2018. Correlate for pa in at this level.
[2018-06-19 11:30] LABS: D-Dimer 1.22 mg/L FEU (<0.60)
[2018-06-19 11:49] LABS: Creatine Kinase MB 0.9 ng/mL (0.0-2.4); Troponin I 0.019 ng/mL (0.000-0.034)
--- NOTE | 2018-06-19 12:41 | CT ---
CT CHEST FOR PULMONARY EMBOLISM. EXAMINATION TYPE: CT chest angio for PE DATE OF EXAM: 06/19/2018 INDICATION: Difficulty breathing CT DLP: 360.6 mGycm, Automated exposure control for dose reduction was used. CONTRAST: Patient injected with 100 mL of Isovue 370. COMPARISON: 04/06/2017 TECHNIQUE: CT of the chest is performed on a spiral scan at 2 mm thick sections. Study is performed with intravenous contrast timed for evaluation for pulmonary embolism. This will limit additional po rtions of the evaluation. 3-D MIP images reconstructed by the technologist are reviewed on the compu ter in the coronal and sagittal planes. FINDINGS: No persistent filling defects are evident to suggest an acute pulmonary embolism. No suspicious mediastinal or hilar adenopathy by CT criteria is evident. There are enlarged calcifie d lymph nodes within the mediastinum unchanged from comparison. The ascending aorta diameter at the l evel of the main pulmonary artery is 3.3 cm. The main pulmonary artery diameter at the bifurcation i s 2.9 cm. Some streak opacity in the superior medial left lung may be related to some atelectasis. There is a c onsolidation with air bronchograms in the posterior medial right left lung base representing some ate lectasis. Small right pleural effusion is present. There may be prior surgery or scarring along the p osterior left lung base. A few patchy infiltrates are within the lower lung doyle. There is a 0.6 cm nodule within the posterior lateral left lung base. This is stable. Series 6 image 92. Tiny spiculat ed nodule measuring 0.4 cm in the posterior left lung base, series 6 image 92 is stable from comparis on. 0.8 cm nodule posterior left apex has the same length but may be slightly thickened from comparis on. Limited CT section through the upper abdomen are unremarkable. IMPRESSIONS: 1. No acute pulmonary embolism. 2. Few scattered punctate lung nodules and a small left pleural effusion .
[2018-06-19] MEDS ORDERED: SODIUM CHLORIDE 0.9% 1,000 ML IV ONE (13:01)
[2018-06-19] MEDS ORDERED: LORATADINE 10 MG TAB PO PRN (15:04)
--- NOTE | 2018-06-19 15:51 | P.HPIM ---
History of Present Illness H&P Date: 06/19/18 Chief Complaint: Shortness of breath This is a 63-year-old female with a known past medical history of obliterans bronchiolitis, Hodgkin's lymphoma status post chemo and radiation treatment in 1978, breast cancer with mastectomy 2004, kidney cancer December 2017 with removal of tumor. Also history of asthma, GERD, hyperlipidemia, hypertension, iron deficiency anemia, hypothyroidism and diastolic congestive heart failure. Patient presents to emergency room with complaints of shortness of breath that has worsened over the last 2 days. Patient reports that she is always having some shortness of breath. Over the last 2 days it is significantly worsened. She has had about a 10 pound weight gain less than 1 week. She has lower extremity edema. She is also noted some increase in swelling and redness of her face. She was diagnosed with the BOOP September 2017 and has had been on prednisone 30 mg daily since. Patient has noticed worsening shortness of breath with any activity. On admission white count was 17.1 hemoglobin 10.9. Troponins negative. EKG had shown sinus tachycardia with a heart rate of 106 and a left bundle branch block. Chest x-ray reports correlate for CHF with early interstitial pulmonary edema. Also noted a mild anterior wedging of a mid thoracic vertebral body appears new from 06/06/2018. Patient is complaining of upper back pain. CT of the chest shows no acute pulmonary embolism. Few scattered punctate lung nodules and small left pleural effusion. Initially patient wasn't be discharged home from the ER. However, she did not feel comfortable going home because this morning her breathing was so bad she felt that she might or pass out. Therefore patient will be admitted to the hospital. Pulmonary service has been consulted. They have placed her on IV Lasix. Patient denies any fever or chills. She reports having sweats. She denies any nausea or vomiting bowel movement changes or urinary symptoms. Review of Systems Please refer to HPI otherwise unremarkable Past Medical History Past Medical History: Asthma, Cancer, Heart Failure, GERD/Reflux, Hyperlipidemia , Hypertension, Sleep Apnea/CPAP/BIPAP, Thyroid Disorder Additional Past Medical History / Comment(s): Hodgkins Lymphoma status post chemo and radiation 1978; Breast CAstatus post mastectomy History of Any Multi-Drug Resistant Organisms: None Reported Past Surgical History: Adenoidectomy, Breast Surgery, Section, Hysterectomy, Orthopedic Surgery, Tonsillectomy Additional Past Surgical History / Comment(s): Spleenectomy, Lapraotomy. Colonoscopy, EGD, Foot surgery, breast reconstruction Past Anesthesia/Blood Transfusion Reactions: No Reported Reaction Smoking Status: Former smoker - Past Family History Mother Family Medical History: No Reported History Brother(s) Additional Family Medical History / Comment(s): MS Medications and Allergies Home Medications Medication Instructions Recorded Confirmed Type Budesonide-Formot 160-4.5 Mcg 2 puff INHALATION RT-BID 10/05/16 06/19/18 History [Symbicort 160-4.5 Mcg Inhaler] Levothyroxine Sodium [Synthroid] 100 mcg PO DAILY 10/05/16 06/19/18 History Losartan [Cozaar] 25 mg PO DAILY 10/05/16 06/19/18 History Metoprolol Succinate (ER) [Toprol 25 mg PO DAILY 10/05/16 06/19/18 History XL] Montelukast [Singulair] 10 mg PO HS 10/05/16 06/19/18 History Sertraline [Zoloft] 200 mg PO AC-SUPPER 10/05/16 06/19/18 History Simvastatin [Zocor] 40 mg PO HS 10/05/16 06/19/18 History ARIPiprazole [Abilify] 2 mg PO DAILY 04/06/17 06/19/18 History Albuterol Sulfate [Proair Hfa] 2 puff INHALATION RT-Q6H PRN 04/06/17 06/19/18 History Potassium Chloride ER [K-Dur 10] 10 meq PO DAILY #30 tab 04/08/17 06/19/18 Rx Acyclovir 400 mg PO DAILY PRN 05/13/17 06/19/18 History Acyclovir [Zovirax] 1 applic TOPICAL 5XD PRN 05/13/17 06/19/18 History Cetirizine HCl [Zyrtec] 10 mg PO HS PRN 05/13/17 06/19/18 History Ranitidine HCl [Zantac] 150 mg PO HS PRN 05/13/17 06/19/18 History Spironolactone-Hctz 25-25Mg 1 tab PO DAILY 05/13/17 06/19/18 History [Aldactazide 25-25 MG] predniSONE 30 mg PO DAILY 10/28/17 06/19/18 History ALPRAZolam [Xanax] 0.5 mg PO TID PRN 06/19/18 06/19/18 History Ergocalciferol [Vitamin D2] 50,000 unit PO SA 06/19/18 06/19/18 History Ferrous Sulfate [Feosol] 325 mg PO DAILY 06/19/18 06/19/18 History Furosemide [Lasix] 40 mg PO DAILY 06/19/18 06/19/18 History Omeprazole 40 mg PO BID 06/19/18 06/19/18 History Allergies Allergy/AdvReac Type Severity Reaction Status Date / Time No Known Allergies Allergy Verified 06/19/18 11:02 Physical Exam Vitals: Vital Signs Temp Pulse Resp BP Pulse Ox 06/19/18 13:21 93 18 110/58 100 06/19/18 11:30 97 18 107/55 100 06/19/18 10:53 98 20 99/54 98 06/19/18 10:23 98.9 F 108 H 24 113/56 97 Intake and Output 06/19/18 06/19/18 06/19/18 06:59 14:59 22:59 Other: Weight 93.44 kg Head normocephalic Neck supple Lungs crackles right lower lobe Heart regular rate and rhythm S1-S2, no rub or gallop Abdomen is soft nontender nondistended positive bowel sounds no hepatosplenomegaly Extremities +1 edema bilateral lower extremities. No calf tenderness. Neuro alert and orientated to 3 Results CBC & Chem 7: 06/19/18 10:44 06/19/18 10:44 Labs: Abnormal Lab Results - Last 24 Hours (Table) 06/19/18 06/19/18 06/19/18 Range/Units 10:44 10:44 10:44 WBC 17.1 H (3.8-10.6) k/uL Hgb 10.9 L (11.4-16.0) gm/dL MCV 78.8 L (80.0-100.0) fL RDW 19.4 H (11.5-15.5) % Neutrophils # 12.6 H (1.3-7.7) k/uL Monocytes # 1.2 H (0-1.0) k/uL APTT 20.5 L (22.0-30.0) sec D-Dimer 1.22 H (<0.60) mg/L FEU BUN 31 H (7-17) mg/dL Assessment and Plan Assessment: 1. Shortness of breath: Possibly related to congestive heart failure exacerbation. Pulmonary started patient on IV Lasix. 2. Acute on chronic diastolic congestive heart failure exacerbation: BNP minimally elevated 996. Continue IV Lasix. Check echo. Patient has had 10 pound weight gain and lower extremity edema 3. Leukocytosis: Likely related to the prednisone patient is on outpatient 4. Anemia with known history of iron deficiency anemia: No reports of bleeding. Hemoglobin is 10.9. Check iron studies. Continue ferrous sulfate daily 5. History of bronchiolitis obliterans with organizing pneumonia: Currently on prednisone 30 mg daily 6. History of Hodgkin's lymphoma treated with chemo and radiation treatment in 1978 7. History of breast cancer with mastectomy 2004 8. Renal cancer status post partial right nephrectomy December 2017. Renal ultrasound from 06/15/2018 shows no suspicious findings 9. Hypothyroidism continue Synthroid 10. Essential hypertension: Patient's blood pressures are on the lower side. Cozaar held. pulmonary service discontinued the hydrochlorothiazide and changed Aldactone to 25 mg twice a day 11. History of persistent asthma: Continue nebulizer treatments and Pulmicort 12. Mild anterior wedging of a mid thoracic vertebral body appears new from 08/2018 on chest x-ray. Patient is complaining of upper back pain. We'll check a thoracic spinal x-ray. We'll add Patterson 5 one every 6 hours as needed for pain GI prophylaxis Pepcid and DVT prophylaxis Lovenox Time with Patient: Greater than 30 (Greater than 60% of the total time spent in counseling and coordination of care. I performed an examination of the patient and discussed their management with the physician Antenna Specialist. I have reviewed the Physician Antenna Specialist's notes and agree with the documented findings and plan of care)
--- NOTE | 2018-06-19 16:19 | P.CNPUL ---
History of Present Illness Consult date: 06/19/18 Requesting physician: Michelle Naqvi Reason for consult: dyspnea, pleural effusion, abnormal CXR/CT Chief complaint: Severe shortness of breath, weight gain, peripheral edema History of present illness: Mrs. Clark is a 63-year-old white female patient of Dr. Naqvi, with a known history of biopsy-proven bronchiolitis obliterans organizing pneumonia, history of left breast cancer, status post mastectomy, and reconstructive surgery, Hodgkin's lymphoma status post radiation, GERD, hypertension, hyperlipidemia, obstructive sleep apnea on CPAP therapy, congestive heart failure with diastolic dysfunction, Yuri thyroiditis, chronic bronchial asthma, and depression, presented to the hospital today on 06/19/2018 at 1017 for evaluation of severe dyspnea, she felt like she was "dying", sharp chest discomfort over anterior and lower posterior chest that was exacerbated by episodes of coughing. Her cough was dry in nature, nonproductive. She denied chest congestion or phlegm production. She denied hemoptysis. She denied fever or chills. She states she noted increased peripheral swelling in her bilateral lower extremities, he put on 6 pounds overnight, 10 pounds in one week , in addition to being increasingly short of breath. Patient is on home dose Lasix of 40 mg daily, in addition to Aldactazide 2525 milligram, and she states her Lasix was recently increased by Dr. Naqvi in regards to increasing swelling. Of note patient had a recent right renal mass resected from the right kidney in February, at [facility], which was found to be cancerous, the results of biopsy are not available to us . Patient reports decreased urination, increased fluid retention, probably related to chronic high -dose prednisone use. Ultrasound of the kidneys showed no evidence of hydronephrosis Patient's was diagnosed with BOOP last September after she had lung wedge biopsy done by Dr. Peralta. Patient was then started on his dose steroids at 40 mg daily, patient has had significant weight increase of around 26 pounds since September 2017. Office PFTs demonstrated improvements in her pulmonary function, from FEV of 1.09 L or 43% of predicted from August 2017 to 1.43 L or 60% of predicted on most recent PFT on 05/23/2018 after initiation of prednisone. After while her maintenance dose prednisone was brought down to 7.5 daily, and the patient was experiencing significant shortness of breath and decreased exercise capacity, after which the dose was increased to 40 mg. With dose decrease to 30, she almost immediately experienced worsening symptoms of cough and dyspnea. Most recently on 05/23/2018 prednisone dose was decreased to 30 mg daily, her PFTs remain stable, with FEV1 at around 61%. Patient however states she has been unable to work, she has been off work for almost a month related to her dyspnea, she describes inability to concentrate on work details, "fogginess", she describes being severely dyspneic and fatigued just walking to the fax machine. 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 Chest x-ray was completed in the emergency department, and showed cardiomegaly, mediastinal and hilar calcified lymph nodes compatible with prior granulomatous disease, diffuse interstitial and vascular prominence with curly B lines, there is a trace pleural effusion. She was a mild anterior wedging of a mid thoracic vertebral body that appeared to be new compared to previous chest x-ray from 06/06/2018. D-dimer was elevated at 1.22, and CT angios was done, and showed no acute pulmonary embolism, a few scattered punctate lung nodules, and small left pleural effusion. EKG showed sinus tachycardia with left bundle branch block with a rate of 106 BPM, with no acute ischemic changes. Lab work showed leukocytosis with a VBC of 17.1, hemoglobin of 10.9, electrolytes are within normal limits, BUN was 31, creatinine is 0.90, LFTs were normal, troponin was 0.019, proBNP was slightly elevated at 996. We're consulted in regards to acute on chronic shortness of breath which seems to be multifactorial, related to chronic underlying BOOP, and there is a component of fluid overload. Review of Systems All systems: negative Constitutional: Denies chills, Denies fever Eyes: denies blurred vision, denies pain Ears, nose, mouth and throat: Denies headache, Denies sore throat Cardiovascular: Denies chest pain, Denies shortness of breath Respiratory: Denies cough Gastrointestinal: Denies abdominal pain, Denies diarrhea, Denies nausea, Denies vomiting Genitourinary: Denies dysuria, Denies hematuria Musculoskeletal: Denies myalgias Integumentary: Denies pruritus, Denies rash Neurological: Denies numbness, Denies weakness Psychiatric: Denies anxiety, Denies depression Endocrine: Denies fatigue, Denies weight change Past Medical History Past Medical History: Asthma, Cancer, Heart Failure, GERD/Reflux, Hyperlipidemia , Hypertension, Sleep Apnea/CPAP/BIPAP, Thyroid Disorder Additional Past Medical History / Comment(s): Hodgkins Lymphoma status post chemo and radiation 1978; Breast CAstatus post mastectomy History of Any Multi-Drug Resistant Organisms: None Reported Past Surgical History: Adenoidectomy, Breast Surgery, Section, Hysterectomy, Orthopedic Surgery, Tonsillectomy Additional Past Surgical History / Comment(s): Spleenectomy, Lapraotomy. Colonoscopy, EGD, Foot surgery, breast reconstruction Past Anesthesia/Blood Transfusion Reactions: No Reported Reaction Smoking Status: Former smoker - Past Family History Mother Family Medical History: No Reported History Brother(s) Additional Family Medical History / Comment(s): MS Medications and Allergies Home Medications Medication Instructions Recorded Confirmed Type Budesonide-Formot 160-4.5 Mcg 2 puff INHALATION RT-BID 10/05/16 06/19/18 History [Symbicort 160-4.5 Mcg Inhaler] Levothyroxine Sodium [Synthroid] 100 mcg PO DAILY 10/05/16 06/19/18 History Losartan [Cozaar] 25 mg PO DAILY 10/05/16 06/19/18 History Metoprolol Succinate (ER) [Toprol 25 mg PO DAILY 10/05/16 06/19/18 History XL] Montelukast [Singulair] 10 mg PO HS 10/05/16 06/19/18 History Sertraline [Zoloft] 200 mg PO AC-SUPPER 10/05/16 06/19/18 History Simvastatin [Zocor] 40 mg PO HS 10/05/16 06/19/18 History ARIPiprazole [Abilify] 2 mg PO DAILY 04/06/17 06/19/18 History Albuterol Sulfate [Proair Hfa] 2 puff INHALATION RT-Q6H PRN 04/06/17 06/19/18 History Potassium Chloride ER [K-Dur 10] 10 meq PO DAILY #30 tab 04/08/17 06/19/18 Rx Acyclovir 400 mg PO DAILY PRN 05/13/17 06/19/18 History Acyclovir [Zovirax] 1 applic TOPICAL 5XD PRN 05/13/17 06/19/18 History Cetirizine HCl [Zyrtec] 10 mg PO HS PRN 05/13/17 06/19/18 History Ranitidine HCl [Zantac] 150 mg PO HS PRN 05/13/17 06/19/18 History Spironolactone-Hctz 25-25Mg 1 tab PO DAILY 05/13/17 06/19/18 History [Aldactazide 25-25 MG] predniSONE 30 mg PO DAILY 10/28/17 06/19/18 History ALPRAZolam [Xanax] 0.5 mg PO TID PRN 06/19/18 06/19/18 History Ergocalciferol [Vitamin D2] 50,000 unit PO SA 06/19/18 06/19/18 History Ferrous Sulfate [Feosol] 325 mg PO DAILY 06/19/18 06/19/18 History Furosemide [Lasix] 40 mg PO DAILY 06/19/18 06/19/18 History Omeprazole 40 mg PO BID 06/19/18 06/19/18 History Allergies Allergy/AdvReac Type Severity Reaction Status Date / Time No Known Allergies Allergy Verified 06/19/18 11:02 Physical Exam Vitals: Vital Signs Temp Pulse Resp BP Pulse Ox 06/19/18 13:21 93 18 110/58 100 06/19/18 11:30 97 18 107/55 100 06/19/18 10:53 98 20 99/54 98 06/19/18 10:23 98.9 F 108 H 24 113/56 97 Intake and Output 06/19/18 06/19/18 06/19/18 06:59 14:59 22:59 Other: Weight 93.44 kg GENERAL EXAM: Alert, pleasant, 63-year-old obese white female, comfortable in no apparent distress. HEAD: Normocephalic/atraumatic. EYES: Normal reaction of pupils, equal size. Conjunctiva pink, sclera white. NOSE: Clear with pink turbinates. THROAT: No erythema or exudates. NECK: No masses, no JVD, no thyroid enlargement, no adenopathy. CHEST: No chest wall deformity. Symmetrical expansion. LUNGS: Equal air entry with coarse bibasilar crackles, but no wheeze, rhonchi or dullness. CVS: Regular rate and rhythm, normal S1 and S2, no gallops, no murmurs, no rubs ABDOMEN: Soft, nontender. No hepatosplenomegaly, normal bowel sounds, no guarding or rigidity. EXTREMITIES: No clubbing, no cyanosis, 2+ pulses and upper and lower extremities. 1+ pitting edema noted in bilateral lower extremities, generalized facial, and neck swelling noted MUSCULOSKELETAL: Muscle strength and tone normal. SPINE: No scoliosis or deformity SKIN: No rashes CENTRAL NERVOUS SYSTEM: Alert and oriented -3. No focal deficits, tone is normal in all 4 extremities. PSYCHIATRIC: Alert and oriented -3. Appropriate affect. Intact judgment and insight. Results - Laboratory Findings CBC and BMP: 06/19/18 10:44 06/19/18 10:44 PT/INR, D-dimer PT 9.4 sec (9.0-12.0) 06/19/18 10:44 INR 0.9 (<1.2) 06/19/18 10:44 D-Dimer 1.22 mg/L FEU (<0.60) H 06/19/18 10:44 Abnormal lab findings: Abnormal Labs 06/19/18 06/19/18 06/19/18 10:44 10:44 10:44 WBC 17.1 H Hgb 10.9 L MCV 78.8 L RDW 19.4 H Neutrophils # 12.6 H Monocytes # 1.2 H APTT 20.5 L D-Dimer 1.22 H BUN 31 H - Diagnostic Findings Chest x-ray: report reviewed, image reviewed CT scan - chest: report reviewed, image reviewed Additional studies: EKG reviewed Assessment and Plan Plan: Assessment: #1. Acute on chronic congestive heart failure, with diastolic dysfunction. Last echocardiogram from 04/07/2017 showed preserved left ventricular systolic function of 55-60% and mild pulmonary hypertension with right ventricular systolic pressure of 45 mmHg. #2. History of valvular heart disease, moderate to severe aortic regurgitation and mild to moderate mitral regurgitation as seen on previous echo from 2016 #3. Acute dyspnea, 6 pound weight gain in 24 hours, increased peripheral edema secondary to above #4. Elevated d-dimer, nonspecific, CT angios negative for pulmonary embolus #5. History of BOOP (Bronchiolitis Obliterans Organizing Pneumonia, with chronic dyspnea, chronic hypoxemic respiratory failure, and limited exercise capacity. This was biopsy-proven via lung wedge resection in September 2017, patient is on maintenance dose of prednisone 30 mg daily #6. Leukocytosis #7. Microcytic anemia #8. Hodgkin's lymphoma, status post radiation #9. History of left breast cancer, status post mastectomy and reconstructive surgery #10. History of persistent asthma, appears to be stable #11. Obstructive sleep apnea, on CPAP therapy, compliant #12. Past medical history of congestive heart failure with diastolic dysfunction, GERD/reflux, hypertension, hyperlipidemia, Yuri's thyroiditis , on thyroid replacement Plan: Patient's maintenance medications for bronchiolitis obliterans organizing pneumonia will be continued, continue home dose prednisone 30 mg daily, patient does not appear to be bronchospastic, we'll continue on home-dose Symbicort, will add nebulized bronchodilators. We will add Lasix 40 mg every 8 hours, we' ll stop oral Lasix, and switch Aldactazide to Aldactone 25 mg daily. Patient's dyspnea seems to have been exacerbated by increased fluid retention and fluid overload. Maintain pain control, and the patient was started on [place]'s via the attending provider. Continue GI and DVT prophylaxis. We'll repeat blood work in the morning, monitor for increasing leukocytosis, fever pattern, chest congestion, phlegm production, accurate I&O's, monitor electrolytes and renal profile. Repeat echocardiogram. Patient is awaiting a bed on selective care unit. We'll continue to follow I performed a history & physical examination of the patient and discussed their management with my nurse practitioner, Esther Yusuf. I reviewed the nurse practitioner's note and agree with the documented findings and plan of care. Lung sounds are positive for coarse bibasilar crackles. The findings and the impression was discussed with the patient. I attest to the documentation by the nurse practitioner. Time with Patient: Greater than 30
[2018-06-19] MEDS: SPIRONOLACTONE 25 MG TAB PO SCH (16:28)
[2018-06-19] MEDS: FUROSEMIDE 10 MG/ML 4 ML VIAL IV SCH ×2 (16:28→19:47)
[2018-06-19] MEDS: SERTRALINE 100 MG TAB PO SCH (17:26)
--- NOTE | 2018-06-19 17:46 | XR ---
EXAMINATION TYPE: XR thoracic spine complete DATE OF EXAM: 06/19/2018 COMPARISON: 06/06/2018 HISTORY: Back pain TECHNIQUE: 3 views FINDINGS: There is osteopenia. There is 50% compression deformity of T8 vertebra. There is no paraspi nal mass. There are densely calcified mediastinal lymph nodes. IMPRESSION: T8 compression fracture has progressed compared to last exam. There is also stable 20% wedging of T6.
[2018-06-19] MEDS: ATORVASTATIN 20 MG TAB PO SCH (19:47)
[2018-06-19] MEDS: MONTELUKAST 10 MG TAB PO SCH (19:47)
[2018-06-19] MEDS: ALPRAZolam 0.5 MG TAB PO PRN (19:49)
[2018-06-19] MEDS: SYMBICORT 160-4.5 MCG INHALER INHALATION SCH (20:27)
[2018-06-19] MEDS: IPRATROPIUM-ALBUTEROL 3 ML NEB INHALATION SCH (20:27)
[2018-06-19] MEDS: HYDROcodone/APAP 5-325MG 1 EACH TAB PO PRN (21:42)
[2018-06-20 02:33] LABS: Iron Saturation 10.22 (12.00-45.00)
[2018-06-20] MEDS: ALPRAZolam 0.5 MG TAB PO PRN ×2 (05:10→16:11)
[2018-06-20] MEDS: LEVOTHYROXINE 100 MCG TAB PO SCH (05:11)
[2018-06-20] MEDS: HYDROcodone/APAP 5-325MG 1 EACH TAB PO PRN ×3 (05:15→16:10)
[2018-06-20] MEDS: IPRATROPIUM-ALBUTEROL 3 ML NEB INHALATION PRN ×2 (05:23→15:55)
[2018-06-20] MEDS: FUROSEMIDE 10 MG/ML 4 ML VIAL IV SCH ×3 (05:26→23:00)
[2018-06-20] MEDS: PANTOPRAZOLE 40 MG TABLET PO SCH (06:04)
[2018-06-20 08:04] LABS: Albumin 3.7 g/dL (3.5-5.0); Calcium 9.1 mg/dL (8.4-10.2); Potassium 3.8 mmol/L (3.5-5.1); Total Bilirubin 0.5 mg/dL (0.2-1.3)
[2018-06-20 08:12] LABS: Anisocytosis Slight; Basophils % (A) 0 %; Eosinophils # (A) 0.1 k/uL (0-0.7); Eosinophils % (A) 0 %; HCT 35.2 % (34.0-46.0); HGB 11.2 gm/dL (11.4-16.0); Hypochromasia Slight; Lymphocytes % (A) 11 %; MCH 25.6 pg (25.0-35.0); MCHC 31.8 g/dL (31.0-37.0); MCV 80.3 fL (80.0-100.0); Microcytosis Slight; Monocytes # (A) 0.5 k/uL (0-1.0); Monocytes % (A) 3 %; Neutrophils # (A) 15.5 k/uL (1.3-7.7); Neutrophils % (A) 85 %; Platelet Count 436 k/uL (150-450); RBC 4.38 m/uL (3.80-5.40); RDW 19.4 % (11.5-15.5); WBC 18.1 k/uL (3.8-10.6)
[2018-06-20] MEDS: ENOXAPARIN 40 MG/0.4 ML SYRINGE SQ SCH (08:24)
[2018-06-20] MEDS: ARIPiprazole 2 MG TAB PO SCH (08:24)
[2018-06-20] MEDS: FAMOTIDINE 20 MG TAB PO SCH (08:25)
[2018-06-20] MEDS: IPRATROPIUM-ALBUTEROL 3 ML NEB INHALATION SCH ×3 (08:34→19:56)
[2018-06-20] MEDS: SYMBICORT 160-4.5 MCG INHALER INHALATION SCH ×2 (08:35→19:56)
--- NOTE | 2018-06-20 08:54 | ECHOF ---
Referral Reason:check EF MEASUREMENTS -------- HEIGHT: 157.5 cm WEIGHT: 93.4 kg BP: IVSd: 1.0 cm (0.6 - 1.1) LVIDd: 4.0 cm (3.9 - 5.3) LVPWd: 1.3 cm (0.6 - 1.1) IVSs: 1.1 cm LVIDs: 2.9 cm LVPWs: 1.7 cm LA Diam: 3.4 cm (2.7 - 3.8) Ao Diam: 2.3 cm (2.0 - 3.7) AV Cusp: 0.9 cm (1.5 - 2.6) LA Diam: 3.2 cm (2.7 - 3.8) MV EXCURSION: 10.933 mm (> 18.000) MV EF SLOPE: 75 mm/s (70 - 150) EPSS: 2.3 cm MV E Benjamin: 0.96 m/s MV DecT: 371 ms MV A Benjamin: 0.44 m/s MV E/A Ratio: 2.17 AV maxP.55 mmHg AV meanP.96 mmHg AR PHT: 225 ms RAP: 5.00 mmHg RVSP: 45.98 mmHg FINDINGS -------- Sinus rhythm. This was a technically difficult study with suboptimal views. Pt. Has Breast inplants The left ventricular size is normal. Left ventricular wall thickness is normal. Overall left vent ricular systolic function is low-normal with, an EF between 50 - 55 %. The right ventricle is normal in size and function. The left atrium is normal in size. The right atrium is normal in size. Lumason used Aortic valve is trileaflet and is moderately thickened. There is mild aortic regurgitation. There is mild aortic stenosis present. Peak/mean gradient across the Aortic Valve is 19.55mmHg / 12.96mm Hg. The mitral valve leaflets are moderately thickened. Moderate mitral annular calcification present. Mild mitral regurgitation is present. Mild tricuspid regurgitation present. There is mild pulmonary hypertension. The right ventricular systolic pressure, as measured by Doppler, is 45.98mmHg. The pulmonic valve was not well visualized. The aortic root size is normal. CONCLUSIONS -------- 1. Sinus rhythm. 2. This was a technically difficult study with suboptimal views. 3. Pt. Has Breast inplants 4. The left ventricular size is normal. 5. Left ventricular wall thickness is normal. 6. Overall left ventricular systolic function is low-normal with, an EF between 50 - 55 %. 7. The right ventricle is normal in size and function. 8. The left atrium is normal in size. 9. The right atrium is normal in size. 10. Lumason used 11. Aortic valve is trileaflet and is moderately thickened. 12. There is mild aortic regurgitation. 13. There is mild aortic stenosis present. 14. Peak/mean gradient across the Aortic Valve is 19.55mmHg / 12.96mmHg. 15. The mitral valve leaflets are moderately thickened. 16. Moderate mitral annular calcification present. 17. Mild mitral regurgitation is present. 18. Mild tricuspid regurgitation present. 19. There is mild pulmonary hypertension. 20. The right ventricular systolic pressure, as measured by Doppler, is 45.98mmHg. 21. The pulmonic valve was not well visualized. 22. The aortic root size is normal. BOND TRADER: Ricarda Mullen RDCS
[2018-06-20] MEDS ORDERED: FERROUS SULFATE 325 MG TAB PO SCH (09:00)
[2018-06-20] MEDS ORDERED: FUROSEMIDE 40 MG TAB PO SCH (09:00)
[2018-06-20] MEDS ORDERED: SPIRONOLACTONE-HCTZ 25-25MG 1 EACH TAB PO SCH (09:00)
[2018-06-20] MEDS ORDERED: predniSONE 10 MG TAB PO SCH (09:00)
[2018-06-20] MEDS ORDERED: POTASSIUM CHLORIDE ER 10 MEQ TAB.ER.PRT PO SCH (09:00)
--- NOTE | 2018-06-20 11:32 | P.PN ---
Subjective Progress Note Date: 06/20/18 Principal diagnosis: Acute on chronic congestive heart failure, with diastolic dysfunction, worsening dyspnea, peripheral edema, weight gain. History of BOOP Mrs. Clark is a 63-year-old white female patient of Dr. Naqvi, with a known history of biopsy-proven bronchiolitis obliterans organizing pneumonia, history of left breast cancer, status post mastectomy, and reconstructive surgery, Hodgkin's lymphoma status post radiation, GERD, hypertension, hyperlipidemia, obstructive sleep apnea on CPAP therapy, congestive heart failure with diastolic dysfunction, Yuri thyroiditis, chronic bronchial asthma, and depression, presented to the hospital today on 06/19/2018 at 1017 for evaluation of severe dyspnea, she felt like she was "dying", sharp chest discomfort over anterior and lower posterior chest that was exacerbated by episodes of coughing. Her cough was dry in nature, nonproductive. She denied chest congestion or phlegm production. She denied hemoptysis. She denied fever or chills. She states she noted increased peripheral swelling in her bilateral lower extremities, he put on 6 pounds overnight, 10 pounds in one week , in addition to being increasingly short of breath. Patient is on home dose Lasix of 40 mg daily, in addition to Aldactazide 2525 milligram, and she states her Lasix was recently increased by Dr. Naqvi in regards to increasing swelling. Of note patient had a recent right renal mass resected from the right kidney in February, at [facility], which was found to be cancerous, the results of biopsy are not available to us . Patient reports decreased urination, increased fluid retention, probably related to chronic high -dose prednisone use. Ultrasound of the kidneys showed no evidence of hydronephrosis Patient's was diagnosed with BOOP last September after she had lung wedge biopsy done by Dr. Peralta. Patient was then started on his dose steroids at 40 mg daily, patient has had significant weight increase of around 26 pounds since September 2017. Office PFTs demonstrated improvements in her pulmonary function, from FEV of 1.09 L or 43% of predicted from August 2017 to 1.43 L or 60% of predicted on most recent PFT on 05/23/2018 after initiation of prednisone. After while her maintenance dose prednisone was brought down to 7.5 daily, and the patient was experiencing significant shortness of breath and decreased exercise capacity, after which the dose was increased to 40 mg. With dose decrease to 30, she almost immediately experienced worsening symptoms of cough and dyspnea. Most recently on 05/23/2018 prednisone dose was decreased to 30 mg daily, her PFTs remain stable, with FEV1 at around 61%. Patient however states she has been unable to work, she has been off work for almost a month related to her dyspnea, she describes inability to concentrate on work details, "fogginess", she describes being severely dyspneic and fatigued just walking to the [employer] machine. 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 Chest x-ray was completed in the emergency department, and showed cardiomegaly, mediastinal and hilar calcified lymph nodes compatible with prior granulomatous disease, diffuse interstitial and vascular prominence with curly B lines, there is a trace pleural effusion. She was a mild anterior wedging of a mid thoracic vertebral body that appeared to be new compared to previous chest x-ray from 06/06/2018. D-dimer was elevated at 1.22, and CT angios was done, and showed no acute pulmonary embolism, a few scattered punctate lung nodules, and small left pleural effusion. EKG showed sinus tachycardia with left bundle branch block with a rate of 106 BPM, with no acute ischemic changes. Lab work showed leukocytosis with a VBC of 17.1, hemoglobin of 10.9, electrolytes are within normal limits, BUN was 31, creatinine is 0.90, LFTs were normal, troponin was 0.019, proBNP was slightly elevated at 996. We're consulted in regards to acute on chronic shortness of breath which seems to be multifactorial, related to chronic underlying BOOP, and there is a component of fluid overload. On 06/20/2018 patient seen in follow-up on selective care unit. She is diuresing well, she is in -1280 mL fluid balance. Appearance of peripheral edema is improving, patient still has some trace pretibial edema. On sounds positive for scattered bibasilar crackles, slightly improved from yesterday's exam. Remains on 3 L per nasal cannula, her pulse ox is 96%, she denies any chest pain. Tachycardic, with heart rate from 110-120 BPM. Short of breath with exertion, and at rest. Her back pain is better controlled, thoracic spine x-ray showed T8 compression fracture and stable 20% wedging of T6. Patient has underlying valvular heart disease, awaiting to be seen by cardiology. Her prednisone dose will be decreased to 20 mg today. Objective - Vital Signs Vital signs: Vital Signs Temp 96.6 F L 06/20/18 08:00 Pulse 112 H 06/20/18 08:48 Resp 20 06/20/18 08:48 BP 96/53 06/20/18 08:00 Pulse Ox 96 06/20/18 08:00 Intake & Output 06/19/18 06/20/18 06/20/18 18:59 06:59 18:59 Intake Total 20 360 Output Total 1300 Balance 20 -1300 360 Weight 93.44 kg 89.7 kg Intake: Intake, IV Titration 20 Amount Sodium Chloride 0.9% 1, 20 000 ml @ 20 mls/hr IV . Q24H ONE Rx#:[id number] Oral 360 Output: Urine 750 Stool 550 Other: Voiding Method Toilet Toilet # Voids 1 - Exam GENERAL EXAM: Alert, pleasant, 63-year-old obese white female, comfortable in no apparent distress. HEAD: Normocephalic/atraumatic. EYES: Normal reaction of pupils, equal size. Conjunctiva pink, sclera white. NOSE: Clear with pink turbinates. THROAT: No erythema or exudates. NECK: No masses, no JVD, no thyroid enlargement, no adenopathy. CHEST: No chest wall deformity. Symmetrical expansion. LUNGS: Equal air entry with coarse bibasilar crackles, but no wheeze, rhonchi or dullness. CVS: Regular rate and rhythm, normal S1 and S2, no gallops, no murmurs, no rubs ABDOMEN: Soft, nontender. No hepatosplenomegaly, normal bowel sounds, no guarding or rigidity. EXTREMITIES: No clubbing, no cyanosis, 2+ pulses and upper and lower extremities. 1+ pitting edema noted in bilateral lower extremities, generalized facial, and neck swelling noted MUSCULOSKELETAL: Muscle strength and tone normal. SPINE: No scoliosis or deformity SKIN: No rashes CENTRAL NERVOUS SYSTEM: Alert and oriented -3. No focal deficits, tone is normal in all 4 extremities. PSYCHIATRIC: Alert and oriented -3. Appropriate affect. Intact judgment and insight. - Labs CBC & Chem 7: 06/20/18 06:10 06/20/18 06:10 Labs: Abnormal Lab Results - Last 24 Hours (Table) 06/19/18 06/19/18 06/20/18 Range/Units 10:44 10:44 06:10 WBC 18.1 H (3.8-10.6) k/uL Hgb 11.2 L (11.4-16.0) gm/dL RDW 19.4 H (11.5-15.5) % Neutrophils # 15.5 H (1.3-7.7) k/uL APTT 20.5 L (22.0-30.0) sec D-Dimer 1.22 H (<0.60) mg/L FEU Chloride (98-107) mmol/L Carbon Dioxide (22-30) mmol/L BUN (7-17) mg/dL Glucose (74-99) mg/dL Iron 37 L (50-170) ug/dL Iron Saturation 10.22 L (12.00-45.00) Total Protein (6.3-8.2) g/dL 06/20/18 Range/Units 06:10 WBC (3.8-10.6) k/uL Hgb (11.4-16.0) gm/dL RDW (11.5-15.5) % Neutrophils # (1.3-7.7) k/uL APTT (22.0-30.0) sec D-Dimer (<0.60) mg/L FEU Chloride 94 L (98-107) mmol/L Carbon Dioxide 35 H (22-30) mmol/L BUN 28 H (7-17) mg/dL Glucose 71 L (74-99) mg/dL Iron (50-170) ug/dL Iron Saturation (12.00-45.00) Total Protein 6.0 L (6.3-8.2) g/dL Assessment and Plan Plan: Assessment: #1. Acute on chronic congestive heart failure, with diastolic dysfunction. Last echocardiogram from 04/07/2017 showed preserved left ventricular systolic function of 55-60% and mild pulmonary hypertension with right ventricular systolic pressure of 45 mmHg. #2. History of valvular heart disease, moderate to severe aortic regurgitation and mild to moderate mitral regurgitation as seen on previous echo from 2016 #3. Acute dyspnea, 6 pound weight gain in 24 hours, increased peripheral edema secondary to above #4. Elevated d-dimer, nonspecific, CT angios negative for pulmonary embolus #5. History of BOOP (Bronchiolitis Obliterans Organizing Pneumonia, with chronic dyspnea, chronic hypoxemic respiratory failure, and limited exercise capacity. This was biopsy-proven via lung wedge resection in September 2017, patient is on maintenance dose of prednisone 30 mg daily #6. Leukocytosis #7. Microcytic anemia #8. Hodgkin's lymphoma, status post radiation #9. History of left breast cancer, status post mastectomy and reconstructive surgery #10. History of persistent asthma, appears to be stable #11. Obstructive sleep apnea, on CPAP therapy, compliant #12. Past medical history of congestive heart failure with diastolic dysfunction, GERD/reflux, hypertension, hyperlipidemia, Yuri's thyroiditis , on thyroid replacement Plan: Continue IV diuretics, 2-D echo has been completed, overall left ventricular systolic function is low normal with an EF between 50-55%, there is mild aortic stenosis, mild mitral and tricuspid regurgitation, and mild pulmonary hypertension. We will decrease the dose of maintenance prednisone to 20 mg daily, patient is experiencing significant weight gain, and fluid retention secondary to high-dose steroids, in addition to compression fractures of the spine. We'll continue with nebulized bronchodilators, continue with pain control. Continue to follow. I performed a history & physical examination of the patient and discussed their management with my nurse practitioner, Esther Yusuf. I reviewed the nurse practitioner's note and agree with the documented findings and plan of care. Lung sounds are positive for coarse bibasilar crackles. The findings and the impression was discussed with the patient. I attest to the documentation by the nurse practitioner. Time with Patient: Less than 30
--- NOTE | 2018-06-20 13:29 | P.PN ---
Subjective Progress Note Date: 06/20/18 This is a 63-year-old female with a known past medical history of obliterans bronchiolitis, Hodgkin's lymphoma status post chemo and radiation treatment in 1978, breast cancer with mastectomy 2004, kidney cancer December 2017 with removal of tumor. Also history of asthma, GERD, hyperlipidemia, hypertension, iron deficiency anemia, hypothyroidism and diastolic congestive heart failure. Patient presents to emergency room with complaints of shortness of breath that has worsened over the last 2 days. Patient reports that she is always having some shortness of breath. Over the last 2 days it is significantly worsened. She has had about a 10 pound weight gain less than 1 week. She has lower extremity edema. She is also noted some increase in swelling and redness of her face. She was diagnosed with the BOOP September 2017 and has had been on prednisone 30 mg daily since. Patient has noticed worsening shortness of breath with any activity. On admission white count was 17.1 hemoglobin 10.9. Troponins negative. EKG had shown sinus tachycardia with a heart rate of 106 and a left bundle branch block. Chest x-ray reports correlate for CHF with early interstitial pulmonary edema. Also noted a mild anterior wedging of a mid thoracic vertebral body appears new from 06/06/2018. Patient is complaining of upper back pain. CT of the chest shows no acute pulmonary embolism. Few scattered punctate lung nodules and small left pleural effusion. Initially patient wasn't be discharged home from the ER. However, she did not feel comfortable going home because this morning her breathing was so bad she felt that she might or pass out. Therefore patient will be admitted to the hospital. Pulmonary service has been consulted. They have placed her on IV Lasix. Patient denies any fever or chills. She reports having sweats. She denies any nausea or vomiting bowel movement changes or urinary symptoms. 06/20/2018 patient still having some shortness of breath. She had a episode this morning where she went to use the restroom and became very short of breath had to call nursing staff for help. Oxygen saturation was checked at that time it was 93%. Patient was given Xanax and reported that it helped with her breathing. She also was found to have a T8 compression fracture that has progressed on x-ray. This is possibly related to steroids. Pulmonary service has decreased prednisone to 20 mg daily. She remains on the IV Lasix for her congestive heart failure. Weight has decreased from 93 to 89.7 kg. Patient is complaining of constipation Objective - Vital Signs Vital signs: Vital Signs Temp 96.6 F L 06/20/18 08:00 Pulse 76 06/20/18 12:00 Resp 16 06/20/18 12:00 BP 124/56 06/20/18 12:00 Pulse Ox 93 L 06/20/18 12:00 Intake & Output 06/19/18 06/20/18 06/20/18 18:59 06:59 18:59 Intake Total 20 360 Output Total 1300 200 Balance 20 -1300 160 Weight 93.44 kg 89.7 kg Intake: Intake, IV Titration 20 Amount Sodium Chloride 0.9% 1, 20 000 ml @ 20 mls/hr IV . Q24H ONE Rx#:[id number] Oral 360 Output: Urine 750 200 Stool 550 Other: Voiding Method Toilet Toilet # Voids 1 1 # Bowel Movements 0 - Exam Head normocephalic Neck supple Lungs clear to auscultation bilaterally no wheezing or crackles Heart few crackles at bases bilaterally Abdomen is soft nontender nondistended positive bowel sounds no hepatosplenomegaly Extremities +1 edema bilateral lower extremities Neuro alert and orientated to 3 - Labs CBC & Chem 7: 06/20/18 06:10 06/20/18 06:10 Labs: Abnormal Lab Results - Last 24 Hours (Table) 06/19/18 06/20/18 06/20/18 Range/Units 10:44 06:10 06:10 WBC 18.1 H (3.8-10.6) k/uL Hgb 11.2 L (11.4-16.0) gm/dL RDW 19.4 H (11.5-15.5) % Neutrophils # 15.5 H (1.3-7.7) k/uL Chloride 94 L (98-107) mmol/L Carbon Dioxide 35 H (22-30) mmol/L BUN 28 H (7-17) mg/dL Glucose 71 L (74-99) mg/dL Iron 37 L (50-170) ug/dL Iron Saturation 10.22 L (12.00-45.00) Total Protein 6.0 L (6.3-8.2) g/dL Microbiology - Last 24 Hours (Table) 06/19/18 10:44 Blood Culture - Preliminary Blood No Growth after 24 hours Assessment and Plan Assessment: 1. Shortness of breath: Possibly related to congestive heart failure exacerbation. Appreciate pulmonary service recommendations 2. Acute on chronic diastolic congestive heart failure exacerbation: BNP minimally elevated 996. Continue IV Lasix. Echo shows an EF of 50-55% mild aortic stenosis and mild pulmonary hypertension. Patient has had 10 pound weight gain and lower extremity edema 3. Leukocytosis: Likely related to the prednisone patient is on outpatient. Monitor white count closely has increased 18.1 4. Anemia with known history of iron deficiency anemia: No reports of bleeding. Patient iron level still low at 37. Increase ferrous sulfate 325 mg twice a day. Hemoglobin increased to 11.2 5. History of bronchiolitis obliterans with organizing pneumonia: Currently on prednisone 30 mg daily. Pulmonary service decrease prednisone to 20 mg daily due to weight gain and back fracture 6. History of Hodgkin's lymphoma treated with chemo and radiation treatment in 1978 7. History of breast cancer with mastectomy 2004 8. Renal cancer status post partial right nephrectomy December 2017. Renal ultrasound from 06/15/2018 shows no suspicious findings 9. Hypothyroidism continue Synthroid 10. Essential hypertension: Patient's blood pressures are on the lower side. Cozaar held. pulmonary service discontinued the hydrochlorothiazide and changed Aldactone to 25 mg twice a day. Place parameters to hold her Aldactone for systolic blood pressure less than 115 11. History of persistent asthma: Continue nebulizer treatments and Pulmicort 12. T8 compression fracture that has progressed noted on thoracic spine x-ray. Consult physical therapy. Continue [facility] 5 one every 6 hours as needed for pain GI prophylaxis Pepcid and DVT prophylaxis Lovenox I performed an examination of the patient and discussed their management with the physician Medical Case Manager. I have reviewed the Physician Medical Case Manager's notes and agree with the documented findings and plan of care
[2018-06-20] MEDS: SPIRONOLACTONE 25 MG TAB PO SCH ×2 (15:56→16:00)
[2018-06-20] MEDS: SERTRALINE 100 MG TAB PO SCH (16:00)
[2018-06-20] MEDS: METOPROLOL SUCCINATE (ER) 25 MG TAB.ER.24H PO SCH (16:00)
--- NOTE | 2018-06-20 17:11 | CONS ---
CONSULTATION ATTENDING: Dr. Naqvi Mrs. Clark is a 63-year-old female with a known history of hyperlipidemia, who presented with symptoms of progressive dyspnea on exertion, much worse recently. She has known history of Hodgkin lymphoma status post chemotherapy and radiation and history of breast cancer and mastectomy and has 3 of biopsy proven bronchiolitis obliterans organizing pneumonia, who has been complaining of progressive dyspnea and worsening peripheral edema. Because of that she came into the hospital and subsequently admitted. The patient had recent right renal mass resected in February 2018 that was malignant. She underwent cardiac catheterization in the past and no evidence of obstructive disease and left ventricular systolic function was preserved and she had aortic regurgitation noted in the past. She denies any chest pain. Her main complaint is related to her dyspnea on exertion and worsening peripheral edema. She has a cough. No dizziness. No syncope. No clear arrhythmia. She has gained a lot of weight after starting the steroids for her BOOP. MEDICATION: At home included prednisone 30 mg daily, Aldactazide 25/25 mg daily, simvastatin 40 mg daily, Zantac, potassium, omeprazole, Singulair, Toprol-XL 25 mg daily, losartan 25 mg daily, Lasix 40 mg daily, Zantac, Symbicort, ProAir, Abilify, Xanax, and acyclovir. REVIEW OF SYSTEMS: RESPIRATORY SYSTEM: She has severe progressive dyspnea on exertion, history of asthma as well as BOOP. GI SYSTEM: No recent GI bleeding. No peptic ulcer disease. SYSTEM: No dysuria or hematuria. NERVOUS SYSTEM: No stroke or seizure. PHYSICAL EXAMINATION: She is a 63-year-old female, alert, oriented, in no apparent distress. Blood pressure 124/50 with a heart in 70s. FACE: Cushingoid. EYES: Sclerae nonicteric. NECK: No bruit. LUNGS: No wheezes appreciated with decreased air exchange. HEART: Regular rate and rhythm, S1, S2. No S3 with systolic murmur at the base. No gallop. ABDOMEN: Soft, nontender. EXTREMITIES: +2 edema bilaterally. LAB DATA: Lab data revealed a BUN and creatinine 28 and 1.01. Her NT proBNP is 996. Troponin 0.019. Hemoglobin of 11.2. Her EKG revealed a sinus mechanism with a left bundle branch block, rate of 106. Her chest x-ray raised the possibility of early interstitial edema. Her echocardiogram showed a preserved systolic function with mild aortic regurgitation, mitral and tricuspid regurgitation, mild to moderate pulmonary hypertension. IMPRESSION: 1. Symptoms of progressive dyspnea with preserved systolic function on the basis of diastolic dysfunction and lung disease. 2. History of bronchiolitis obliterans organizing pneumonia on high-dose steroids. 3. History of Hodgkin lymphoma. 4. Hyperlipidemia. RECOMMENDATION: From the cardiac standpoint, I agree with your plan of intravenous diuresis. The patient in the past has had moderate aortic regurgitation that was not significant and does not appear to be an issue at this point. We will follow her renal function closely. Continue the IV Lasix as present and depending on her progress further recommendation will be made. Thank you for this consult. We will follow with you. MMODL / IJN: [id number] /
[2018-06-20] MEDS: MONTELUKAST 10 MG TAB PO SCH (19:40)
[2018-06-20] MEDS: ATORVASTATIN 20 MG TAB PO SCH (19:40)
[2018-06-20] MEDS: FERROUS SULFATE 325 MG TAB PO SCH (19:40)
[2018-06-20] MEDS: DOCUSATE 100 MG CAP PO SCH (19:40)
[2018-06-21] MEDS: ALPRAZolam 0.5 MG TAB PO PRN ×3 (03:38→21:49)
[2018-06-21] MEDS: HYDROcodone/APAP 5-325MG 1 EACH TAB PO PRN ×4 (03:38→21:49)
[2018-06-21] MEDS: FAMOTIDINE 20 MG TAB PO PRN ×2 (03:41→21:50)
[2018-06-21] MEDS: LEVOTHYROXINE 100 MCG TAB PO SCH (06:15)
[2018-06-21] MEDS: PANTOPRAZOLE 40 MG TABLET PO SCH (06:15)
[2018-06-21 07:18] LABS: Anisocytosis Slight; Basophils % (A) 0 %; Eosinophils # (A) 0.1 k/uL (0-0.7); Eosinophils % (A) 1 %; HCT 30.9 % (34.0-46.0); Hypochromasia Slight; Lymphocytes % (A) 10 %; MCH 24.7 pg (25.0-35.0); MCV 79.7 fL (80.0-100.0); Mean Platelet Volume 6.4; Microcytosis Slight; Monocytes # (A) 0.5 k/uL (0-1.0); Monocytes % (A) 3 %; Neutrophils # (A) 17.1 k/uL (1.3-7.7); Neutrophils % (A) 86 %; Platelet Count 428 k/uL (150-450); RBC 3.88 m/uL (3.80-5.40); RDW 19.3 % (11.5-15.5); WBC 19.9 k/uL (3.8-10.6)
[2018-06-21] MEDS: SYMBICORT 160-4.5 MCG INHALER INHALATION SCH ×2 (07:20→18:46)
[2018-06-21] MEDS: IPRATROPIUM-ALBUTEROL 3 ML NEB INHALATION SCH ×3 (07:20→18:46)
[2018-06-21 07:21] LABS: Potassium 3.2 mmol/L (3.5-5.1); Total Bilirubin 0.5 mg/dL (0.2-1.3); Total Protein 5.3 g/dL (6.3-8.2)
[2018-06-21 07:26] LABS: HGB 9.6 gm/dL (11.4-16.0)
[2018-06-21] MEDS ORDERED: Potassium Replacement Protocol 1 EACH MISC MISCELLANE PRN (08:10)
[2018-06-21] MEDS: FUROSEMIDE 10 MG/ML 4 ML VIAL IV SCH ×2 (08:42→20:29)
[2018-06-21] MEDS: FERROUS SULFATE 325 MG TAB PO SCH ×2 (08:42→20:28)
[2018-06-21] MEDS: FAMOTIDINE 20 MG TAB PO SCH (08:42)
[2018-06-21] MEDS: METOPROLOL SUCCINATE (ER) 25 MG TAB.ER.24H PO SCH (08:42)
[2018-06-21] MEDS: SPIRONOLACTONE 25 MG TAB PO SCH ×2 (08:42→15:59)
[2018-06-21] MEDS: predniSONE 20 MG TAB PO SCH (08:42)
[2018-06-21] MEDS: ARIPiprazole 2 MG TAB PO SCH (08:42)
[2018-06-21] MEDS: ENOXAPARIN 40 MG/0.4 ML SYRINGE SQ SCH (08:43)
[2018-06-21] MEDS: DOCUSATE 100 MG CAP PO SCH ×2 (08:43→20:28)
[2018-06-21] MEDS: POTASSIUM CHLORIDE ER 20 MEQ TAB.ER PO SCH ×2 (08:53→08:54)
--- NOTE | 2018-06-21 11:21 | P.PN ---
Subjective Progress Note Date: 06/21/18 Principal diagnosis: Acute on chronic congestive heart failure, with diastolic dysfunction, worsening dyspnea, peripheral edema, weight gain. History of BOOP Mrs. Clark is a 63-year-old white female patient of Dr. Naqvi, with a known history of biopsy-proven bronchiolitis obliterans organizing pneumonia, history of left breast cancer, status post mastectomy, and reconstructive surgery, Hodgkin's lymphoma status post radiation, GERD, hypertension, hyperlipidemia, obstructive sleep apnea on CPAP therapy, congestive heart failure with diastolic dysfunction, Yuri thyroiditis, chronic bronchial asthma, and depression, presented to the hospital today on 06/19/2018 at 1017 for evaluation of severe dyspnea, she felt like she was "dying", sharp chest discomfort over anterior and lower posterior chest that was exacerbated by episodes of coughing. Her cough was dry in nature, nonproductive. She denied chest congestion or phlegm production. She denied hemoptysis. She denied fever or chills. She states she noted increased peripheral swelling in her bilateral lower extremities, he put on 6 pounds overnight, 10 pounds in one week , in addition to being increasingly short of breath. Patient is on home dose Lasix of 40 mg daily, in addition to Aldactazide 2525 milligram, and she states her Lasix was recently increased by Dr. Naqvi in regards to increasing swelling. Of note patient had a recent right renal mass resected from the right kidney in February, at [facility], which was found to be cancerous, the results of biopsy are not available to us . Patient reports decreased urination, increased fluid retention, probably related to chronic high -dose prednisone use. Ultrasound of the kidneys showed no evidence of hydronephrosis Patient's was diagnosed with BOOP last September after she had lung wedge biopsy done by Dr. Peralta. Patient was then started on his dose steroids at 40 mg daily, patient has had significant weight increase of around 26 pounds since September 2017. Office PFTs demonstrated improvements in her pulmonary function, from FEV of 1.09 L or 43% of predicted from August 2017 to 1.43 L or 60% of predicted on most recent PFT on 05/23/2018 after initiation of prednisone. After while her maintenance dose prednisone was brought down to 7.5 daily, and the patient was experiencing significant shortness of breath and decreased exercise capacity, after which the dose was increased to 40 mg. With dose decrease to 30, she almost immediately experienced worsening symptoms of cough and dyspnea. Most recently on 05/23/2018 prednisone dose was decreased to 30 mg daily, her PFTs remain stable, with FEV1 at around 61%. Patient however states she has been unable to work, she has been off work for almost a month related to her dyspnea, she describes inability to concentrate on work details, "fogginess", she describes being severely dyspneic and fatigued just walking to the [employer] machine. 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 Chest x-ray was completed in the emergency department, and showed cardiomegaly, mediastinal and hilar calcified lymph nodes compatible with prior granulomatous disease, diffuse interstitial and vascular prominence with curly B lines, there is a trace pleural effusion. She was a mild anterior wedging of a mid thoracic vertebral body that appeared to be new compared to previous chest x-ray from 06/06/2018. D-dimer was elevated at 1.22, and CT angios was done, and showed no acute pulmonary embolism, a few scattered punctate lung nodules, and small left pleural effusion. EKG showed sinus tachycardia with left bundle branch block with a rate of 106 BPM, with no acute ischemic changes. Lab work showed leukocytosis with a VBC of 17.1, hemoglobin of 10.9, electrolytes are within normal limits, BUN was 31, creatinine is 0.90, LFTs were normal, troponin was 0.019, proBNP was slightly elevated at 996. We're consulted in regards to acute on chronic shortness of breath which seems to be multifactorial, related to chronic underlying BOOP, and there is a component of fluid overload. On 06/20/2018 patient seen in follow-up on selective care unit. She is diuresing well, she is in -1280 mL fluid balance. Appearance of peripheral edema is improving, patient still has some trace pretibial edema. On sounds positive for scattered bibasilar crackles, slightly improved from yesterday's exam. Remains on 3 L per nasal cannula, her pulse ox is 96%, she denies any chest pain. Tachycardic, with heart rate from 110-120 BPM. Short of breath with exertion, and at rest. Her back pain is better controlled, thoracic spine x-ray showed T8 compression fracture and stable 20% wedging of T6. Patient has underlying valvular heart disease, awaiting to be seen by cardiology. Her prednisone dose will be decreased to 20 mg today. On 06/21/2018 patient seen in follow-up on selective care unit. Complains of significant exertional dyspnea, still has residual swelling in bilateral lower extremities, although it is improving. Patient remains on IV diuretics, diuresing well, she is in -2010 mL fluid balance over the last 24 hours. Currently on room air, she wears oxygen intermittently, sucks on 2 L per nasal cannula was 100%, she is afebrile, tachycardic, with a rate of 104 BPM. Occasional cough, no phlegm production. Blood cultures showed no growth to date. We'll continue with current medical treatment, continue IV diuresis for another 24 hours. Patient is still having some back pain, she was found to have T8 compression fracture. The possibility of subacute rehab after discharge was discussed with the patient, in view of her significant activity limitation related to exertional dyspnea, and pain. Objective - Vital Signs Vital signs: Vital Signs Temp 97.1 F L 06/21/18 08:00 Pulse 104 H 06/21/18 07:30 Resp 16 06/21/18 08:00 BP 102/61 06/21/18 08:00 Pulse Ox 100 06/21/18 08:00 Intake & Output 06/20/18 06/21/18 06/21/18 18:59 06:59 18:59 Intake Total 840 200 Output Total 700 2150 Balance 140 -2150 200 Weight 89.8 kg Intake: Oral 840 200 Output: Urine 700 2150 Other: Voiding Method Toilet Toilet Toilet # Voids 1 1 # Bowel Movements 0 - Exam GENERAL EXAM: Alert, pleasant, 63-year-old obese white female, comfortable in no apparent distress. HEAD: Normocephalic/atraumatic. EYES: Normal reaction of pupils, equal size. Conjunctiva pink, sclera white. NOSE: Clear with pink turbinates. THROAT: No erythema or exudates. NECK: No masses, no JVD, no thyroid enlargement, no adenopathy. CHEST: No chest wall deformity. Symmetrical expansion. LUNGS: Equal air entry with bibasilar crackles, but no wheeze, rhonchi or dullness. CVS: Regular rate and rhythm, normal S1 and S2, no gallops, no murmurs, no rubs ABDOMEN: Soft, nontender. No hepatosplenomegaly, normal bowel sounds, no guarding or rigidity. EXTREMITIES: No clubbing, no cyanosis, 2+ pulses and upper and lower extremities. Patient still has residual pretibial and pedal edema, slightly improved MUSCULOSKELETAL: Muscle strength and tone normal. SPINE: No scoliosis or deformity SKIN: No rashes CENTRAL NERVOUS SYSTEM: Alert and oriented -3. No focal deficits, tone is normal in all 4 extremities. PSYCHIATRIC: Alert and oriented -3. Appropriate affect. Intact judgment and insight. - Labs CBC & Chem 7: 06/21/18 06:41 06/21/18 06:41 Labs: Abnormal Lab Results - Last 24 Hours (Table) 06/21/18 06/21/18 Range/Units 06:41 06:41 WBC 19.9 H (3.8-10.6) k/uL Hgb 9.6 L D (11.4-16.0) gm/dL Hct 30.9 L (34.0-46.0) % MCV 79.7 L (80.0-100.0) fL MCH 24.7 L (25.0-35.0) pg RDW 19.3 H (11.5-15.5) % Neutrophils # 17.1 H (1.3-7.7) k/uL Potassium 3.2 L (3.5-5.1) mmol/L Chloride 95 L (98-107) mmol/L Carbon Dioxide 37 H (22-30) mmol/L BUN 30 H (7-17) mg/dL Glucose 112 H (74-99) mg/dL Total Protein 5.3 L (6.3-8.2) g/dL Albumin 3.0 L (3.5-5.0) g/dL Microbiology - Last 24 Hours (Table) 06/19/18 10:44 Blood Culture - Preliminary Blood No Growth after 24 hours Assessment and Plan Plan: Assessment: #1. Acute on chronic congestive heart failure, with diastolic dysfunction. Last echocardiogram from 04/07/2017 showed preserved left ventricular systolic function of 55-60% and mild pulmonary hypertension with right ventricular systolic pressure of 45 mmHg. #2. History of valvular heart disease, moderate to severe aortic regurgitation and mild to moderate mitral regurgitation as seen on previous echo from 2016 #3. Acute dyspnea, 6 pound weight gain in 24 hours, increased peripheral edema secondary to above #4. Elevated d-dimer, nonspecific, CT angios negative for pulmonary embolus #5. History of BOOP (Bronchiolitis Obliterans Organizing Pneumonia, with chronic dyspnea, chronic hypoxemic respiratory failure, and limited exercise capacity. This was biopsy-proven via lung wedge resection in September 2017, patient is on maintenance dose of prednisone 30 mg daily #6. Leukocytosis #7. Microcytic anemia #8. Hodgkin's lymphoma, status post radiation #9. History of left breast cancer, status post mastectomy and reconstructive surgery #10. History of persistent asthma, appears to be stable #11. Obstructive sleep apnea, on CPAP therapy, compliant #12. Past medical history of congestive heart failure with diastolic dysfunction, GERD/reflux, hypertension, hyperlipidemia, Yuri's thyroiditis , on thyroid replacement Plan: We'll continue IV diuretics for another 24 hours, patient still has residual edema in lower extremities, and crackles on today's evaluation. She still complains of dyspnea on exertion, and back pain, and there is a possibility the patient will need subacute rehab after discharge in view of her significant activity limitation related to her dyspnea and back pain. Continue current medical treatment. I performed a history & physical examination of the patient and discussed their management with my nurse practitioner, Esther Yusuf. I reviewed the nurse practitioner's note and agree with the documented findings and plan of care. Lung sounds are positive for bibasilar crackles. The findings and the impression was discussed with the patient. I attest to the documentation by the nurse practitioner. Time with Patient: Less than 30
--- NOTE | 2018-06-21 11:59 | PN ---
PROGRESS NOTE Mrs. Clark is a 63-year-old female with a history of bronchiolitis obliterans organizing pneumonia, who presented with symptoms of progressive dyspnea, worsening peripheral edema and cough. She continued to be dyspneic, although her peripheral edema is better. She denies any chest pain. No dizziness. No palpitation. She continues to be on Lipitor 20 mg daily, Lasix 40 mg IV q.8 hours, metoprolol succinate 25 mg daily, prednisone, spironolactone 25 mg twice a day, sertraline. PHYSICAL EXAMINATION: Blood pressure 102/60 with a heart rate in the 90s to low 100s. Lungs with no wheezes. HEART: Regular rhythm, S1, S2. No S3 with systolic murmur at the base. ABDOMEN: Soft, nontender. EXTREMITIES: Trace to 1+ edema. LAB DATA: Revealed BUN and creatinine of 30 and 0.97, potassium 3.2, hemoglobin of 9.6. IMPRESSION: 1. Symptoms of progressive dyspnea related to her bronchiolitis obliterans organizing pneumonia. 2. Fluid overload with no evidence of systolic dysfunction or severe valvular disease. 3. History of Hodgkin's disease. 4. Back fracture. RECOMMENDATION: Will continue present therapy. I will cut on her IV Lasix to 40 mg IV q.12 hours. If she is stable, switch her to oral tomorrow and to follow her renal function closely. MMODL / IJN: [id number] /
--- NOTE | 2018-06-21 12:12 | P.PN ---
Subjective Progress Note Date: 06/21/18 This is a 63-year-old female with a known past medical history of obliterans bronchiolitis, Hodgkin's lymphoma status post chemo and radiation treatment in 1978, breast cancer with mastectomy 2004, kidney cancer December 2017 with removal of tumor. Also history of asthma, GERD, hyperlipidemia, hypertension, iron deficiency anemia, hypothyroidism and diastolic congestive heart failure. Patient presents to emergency room with complaints of shortness of breath that has worsened over the last 2 days. Patient reports that she is always having some shortness of breath. Over the last 2 days it is significantly worsened. She has had about a 10 pound weight gain less than 1 week. She has lower extremity edema. She is also noted some increase in swelling and redness of her face. She was diagnosed with the BOOP September 2017 and has had been on prednisone 30 mg daily since. Patient has noticed worsening shortness of breath with any activity. On admission white count was 17.1 hemoglobin 10.9. Troponins negative. EKG had shown sinus tachycardia with a heart rate of 106 and a left bundle branch block. Chest x-ray reports correlate for CHF with early interstitial pulmonary edema. Also noted a mild anterior wedging of a mid thoracic vertebral body appears new from 06/06/2018. Patient is complaining of upper back pain. CT of the chest shows no acute pulmonary embolism. Few scattered punctate lung nodules and small left pleural effusion. Initially patient wasn't be discharged home from the ER. However, she did not feel comfortable going home because this morning her breathing was so bad she felt that she might or pass out. Therefore patient will be admitted to the hospital. Pulmonary service has been consulted. They have placed her on IV Lasix. Patient denies any fever or chills. She reports having sweats. She denies any nausea or vomiting bowel movement changes or urinary symptoms. 06/20/2018 patient still having some shortness of breath. She had a episode this morning where she went to use the restroom and became very short of breath had to call nursing staff for help. Oxygen saturation was checked at that time it was 93%. Patient was given Xanax and reported that it helped with her breathing. She also was found to have a T8 compression fracture that has progressed on x-ray. This is possibly related to steroids. Pulmonary service has decreased prednisone to 20 mg daily. She remains on the IV Lasix for her congestive heart failure. Weight has decreased from 93 to 89.7 kg. Patient is complaining of constipation On 06/21/2018 patient is currently sitting comfortably in bed. Does state when she gets up she is restroom that she still becomes very short of breath. Dr. Johnson has been consulted for T8 compression fracture. Awaiting consult. Potassium 3.2 replacement has been ordered. Pulmonology will continue IV diuretics for another 24 hours. Denies chest pain or shortness breath. Patient states she had a bowel movement this a.m. Objective - Vital Signs Vital signs: Vital Signs Temp 97.1 F L 06/21/18 08:00 Pulse 104 H 06/21/18 07:30 Resp 16 06/21/18 08:00 BP 102/61 06/21/18 08:00 Pulse Ox 100 06/21/18 08:00 Intake & Output 06/20/18 06/21/18 06/21/18 18:59 06:59 18:59 Intake Total 840 200 Output Total 700 2150 Balance 140 -2150 200 Weight 89.8 kg Intake: Oral 840 200 Output: Urine 700 2150 Other: Voiding Method Toilet Toilet Toilet # Voids 1 1 # Bowel Movements 0 - Exam Head normocephalic Neck supple Lungs clear to auscultation bilaterally no wheezing or crackles Heart few crackles at bases bilaterally Abdomen is soft nontender nondistended positive bowel sounds no hepatosplenomegaly Extremities +1 edema bilateral lower extremities Neuro alert and orientated to 3 - Labs CBC & Chem 7: 06/21/18 06:41 06/21/18 06:41 Labs: Abnormal Lab Results - Last 24 Hours (Table) 06/21/18 06/21/18 Range/Units 06:41 06:41 WBC 19.9 H (3.8-10.6) k/uL Hgb 9.6 L D (11.4-16.0) gm/dL Hct 30.9 L (34.0-46.0) % MCV 79.7 L (80.0-100.0) fL MCH 24.7 L (25.0-35.0) pg RDW 19.3 H (11.5-15.5) % Neutrophils # 17.1 H (1.3-7.7) k/uL Potassium 3.2 L (3.5-5.1) mmol/L Chloride 95 L (98-107) mmol/L Carbon Dioxide 37 H (22-30) mmol/L BUN 30 H (7-17) mg/dL Glucose 112 H (74-99) mg/dL Total Protein 5.3 L (6.3-8.2) g/dL Albumin 3.0 L (3.5-5.0) g/dL Microbiology - Last 24 Hours (Table) 06/19/18 10:44 Blood Culture - Preliminary Blood No Growth after 24 hours Assessment and Plan Assessment: 1. Shortness of breath: Possibly related to congestive heart failure exacerbation. Appreciate pulmonary service recommendations 2. Acute on chronic diastolic congestive heart failure exacerbation: BNP minimally elevated 996. Continue IV Lasix. Echo shows an EF of 50-55% mild aortic stenosis and mild pulmonary hypertension. Patient has had 10 pound weight gain and lower extremity edema. Continue IV Lasix for another 24 hours. 3. Leukocytosis: Likely related to the prednisone patient is on outpatient. Monitor white count closely has increased 19.9 4. Anemia with known history of iron deficiency anemia: No reports of bleeding. Patient iron level still low at 37. Increase ferrous sulfate 325 mg twice a day. Hemoglobin increased to 11.2 5. History of bronchiolitis obliterans with organizing pneumonia: Currently on prednisone 30 mg daily. Pulmonary service decrease prednisone to 20 mg daily due to weight gain and back fracture. Per pulmonary we'll continue IV diuretics for another 24 hours. 6. History of Hodgkin's lymphoma treated with chemo and radiation treatment in 1978 7. History of breast cancer with mastectomy 2004 8. Renal cancer status post partial right nephrectomy December 2017. Renal ultrasound from 06/15/2018 shows no suspicious findings 9. Hypothyroidism continue Synthroid 10. Essential hypertension: Patient's blood pressures are on the lower side. Cozaar held. pulmonary service discontinued the hydrochlorothiazide and changed Aldactone to 25 mg twice a day. Place parameters to hold her Aldactone for systolic blood pressure less than 115 11. History of persistent asthma: Continue nebulizer treatments and Pulmicort 12. T8 compression fracture that has progressed noted on thoracic spine x-ray. Consult physical therapy. Continue [place] 5 one every 6 hours as needed for pain. Dr. Johnson has been consulted. Possible need for subacute rehab after discharge due to her significant activity limitation related to her dyspnea and back pain. GI prophylaxis Pepcid and DVT prophylaxis Lovenox I performed an examination of the patient and discussed their management with the Nurse Practitioner. I have reviewed the Nurse Practitioner's notes and agree with the documented findings and plan of care
[2018-06-21] MEDS: SERTRALINE 100 MG TAB PO SCH (15:59)
[2018-06-21] MEDS: ATORVASTATIN 20 MG TAB PO SCH (20:28)
[2018-06-21] MEDS: MONTELUKAST 10 MG TAB PO SCH (20:28)
[2018-06-22] MEDS: HYDROcodone/APAP 5-325MG 1 EACH TAB PO PRN ×3 (05:32→20:17)
[2018-06-22] MEDS: LEVOTHYROXINE 100 MCG TAB PO SCH (06:21)
[2018-06-22] MEDS: PANTOPRAZOLE 40 MG TABLET PO SCH (06:21)
[2018-06-22 06:23] LABS: Anisocytosis Slight; Basophils % (A) 0 %; Eosinophils # (A) 0.2 k/uL (0-0.7); Eosinophils % (A) 1 %; HCT 32.3 % (34.0-46.0); HGB 9.9 gm/dL (11.4-16.0); Hypochromasia Moderate; Lymphocytes # (A) 2.2 k/uL (1.0-4.8); Lymphocytes % (A) 15 %; MCH 24.7 pg (25.0-35.0); MCHC 30.6 g/dL (31.0-37.0); MCV 80.7 fL (80.0-100.0); Mean Platelet Volume 6.8; Microcytosis Slight; Monocytes # (A) 0.5 k/uL (0-1.0); Monocytes % (A) 3 %; Neutrophils # (A) 12.1 k/uL (1.3-7.7); Neutrophils % (A) 80 %; Platelet Count 397 k/uL (150-450); RDW 19.4 % (11.5-15.5); WBC 15.1 k/uL (3.8-10.6)
[2018-06-22 07:03] LABS: ALT 29 U/L (9-52); AST 19 U/L (14-36); Albumin 3.4 g/dL (3.5-5.0); Alkaline Phosphatase 67 U/L (38-126); Anion Gap 7 mmol/L; Blood Urea Nitrogen 24 mg/dL (7-17); Calcium 9.3 mg/dL (8.4-10.2); Carbon Dioxide 38 mmol/L (22-30); Chloride 95 mmol/L (98-107); Glucose 82 mg/dL (74-99); Potassium 4.2 mmol/L (3.5-5.1); Sodium 140 mmol/L (137-145); Total Bilirubin 0.5 mg/dL (0.2-1.3); Total Protein 5.9 g/dL (6.3-8.2)
[2018-06-22] MEDS: SYMBICORT 160-4.5 MCG INHALER INHALATION SCH ×2 (07:08→18:46)
[2018-06-22] MEDS: IPRATROPIUM-ALBUTEROL 3 ML NEB INHALATION SCH ×3 (07:08→18:46)
[2018-06-22] MEDS: ENOXAPARIN 40 MG/0.4 ML SYRINGE SQ SCH (08:32)
[2018-06-22] MEDS: DOCUSATE 100 MG CAP PO SCH ×2 (08:32→20:15)
[2018-06-22] MEDS: FAMOTIDINE 20 MG TAB PO SCH (08:33)
[2018-06-22] MEDS: FERROUS SULFATE 325 MG TAB PO SCH ×2 (08:33→20:15)
[2018-06-22] MEDS: FUROSEMIDE 10 MG/ML 4 ML VIAL IV SCH ×2 (08:33→20:15)
[2018-06-22] MEDS: SPIRONOLACTONE 25 MG TAB PO SCH ×2 (08:34→16:30)
[2018-06-22] MEDS: ARIPiprazole 2 MG TAB PO SCH (08:34)
[2018-06-22] MEDS: predniSONE 20 MG TAB PO SCH (08:34)
[2018-06-22] MEDS: METOPROLOL SUCCINATE (ER) 25 MG TAB.ER.24H PO SCH (08:34)
[2018-06-22] MEDS: ALPRAZolam 0.5 MG TAB PO PRN ×2 (12:26→20:17)
--- NOTE | 2018-06-22 14:11 | P.PN ---
Subjective Progress Note Date: 06/22/18 This is a 63-year-old female with history of bronchiolitis obliterans organizing pneumonia who presented to the hospital with symptoms of worsening shortness of breath as well as associated peripheral edema and cough. Patient was seen and examined this morning, she does state that her breathing is getting better, edema is almost completely gone. Her main complaint this morning is that of back pain. Hemodynamically she is stable. BUN 24 today, creatinine 0.7. Objective - Vital Signs Vital signs: Vital Signs Temp 97.7 F 06/21/18 20:00 Pulse 86 06/22/18 13:50 Resp 16 06/22/18 12:00 BP 130/66 06/22/18 12:00 Pulse Ox 100 06/22/18 08:00 Intake & Output 06/21/18 06/22/18 06/22/18 18:59 06:59 18:59 Intake Total 580 240 Output Total 1000 1750 1500 Balance -420 -1750 -1260 Weight 90.4 kg Intake: Oral 580 240 Output: Urine 1000 1750 1500 Other: Voiding Method Toilet Toilet Toilet # Voids 2 3 # Bowel Movements 0 - Exam PHYSICAL EXAMINATION: GENERAL: 63-year-old female complaining of a back discomfort at the time of my examination HEENT: Head is atraumatic, normocephalic. Pupils equal, round. Sclera anicteric. Conjunctiva are clear. Mucous membranes of the mouth are moist. Neck is supple. There is no elevated jugular venous pressure.] bruit is heard. HEART EXAMINATION: S1 S2 1 systolic murmur is heard. CHEST EXAMINATION:[ Lungs are clear with fine crackles to the bases. ABDOMEN: Soft, nontender. Bowel sounds are heard. No organomegaly noted. EXTREMITIES: 2+ peripheral pulses with no evidence of peripheral edema and no calf tenderness noted. NEUROLOGIC patient is awake, alert and oriented ?-3. . - Labs CBC & Chem 7: 06/22/18 05:28 06/22/18 05:28 Labs: Abnormal Lab Results - Last 24 Hours (Table) 06/22/18 06/22/18 Range/Units 05:28 05:28 WBC 15.1 H (3.8-10.6) k/uL Hgb 9.9 L (11.4-16.0) gm/dL Hct 32.3 L (34.0-46.0) % MCH 24.7 L (25.0-35.0) pg MCHC 30.6 L (31.0-37.0) g/dL RDW 19.4 H (11.5-15.5) % Neutrophils # 12.1 H (1.3-7.7) k/uL Chloride 95 L (98-107) mmol/L Carbon Dioxide 38 H (22-30) mmol/L BUN 24 H (7-17) mg/dL Total Protein 5.9 L (6.3-8.2) g/dL Albumin 3.4 L (3.5-5.0) g/dL Microbiology - Last 24 Hours (Table) 06/19/18 10:44 Blood Culture - Preliminary Blood No Growth after 72 hours Assessment and Plan Plan: Assessment and plan #1 symptoms of progressive dyspnea likely related to bronchiolitis obliterans organizing pneumonia #2 fluid overload with no evidence of systolic dysfunction or severe valvular disease #3 history of Hodgkin's #4 back fracture Plan From cardiology's perspective, we'll continue the patient on her IV diuretics for 24 hours, check lytes BUN and creatinine in the morning. DNP note has been reviewed, I agree with a documented findings and plan of care. Patient was seen and examined.
--- NOTE | 2018-06-22 14:25 | P.PN ---
Subjective Progress Note Date: 06/22/18 This is a 63-year-old female with a known past medical history of obliterans bronchiolitis, Hodgkin's lymphoma status post chemo and radiation treatment in 1978, breast cancer with mastectomy 2004, kidney cancer December 2017 with removal of tumor. Also history of asthma, GERD, hyperlipidemia, hypertension, iron deficiency anemia, hypothyroidism and diastolic congestive heart failure. Patient presents to emergency room with complaints of shortness of breath that has worsened over the last 2 days. Patient reports that she is always having some shortness of breath. Over the last 2 days it is significantly worsened. She has had about a 10 pound weight gain less than 1 week. She has lower extremity edema. She is also noted some increase in swelling and redness of her face. She was diagnosed with the BOOP September 2017 and has had been on prednisone 30 mg daily since. Patient has noticed worsening shortness of breath with any activity. On admission white count was 17.1 hemoglobin 10.9. Troponins negative. EKG had shown sinus tachycardia with a heart rate of 106 and a left bundle branch block. Chest x-ray reports correlate for CHF with early interstitial pulmonary edema. Also noted a mild anterior wedging of a mid thoracic vertebral body appears new from 06/06/2018. Patient is complaining of upper back pain. CT of the chest shows no acute pulmonary embolism. Few scattered punctate lung nodules and small left pleural effusion. Initially patient wasn't be discharged home from the ER. However, she did not feel comfortable going home because this morning her breathing was so bad she felt that she might or pass out. Therefore patient will be admitted to the hospital. Pulmonary service has been consulted. They have placed her on IV Lasix. Patient denies any fever or chills. She reports having sweats. She denies any nausea or vomiting bowel movement changes or urinary symptoms. 06/20/2018 patient still having some shortness of breath. She had a episode this morning where she went to use the restroom and became very short of breath had to call nursing staff for help. Oxygen saturation was checked at that time it was 93%. Patient was given Xanax and reported that it helped with her breathing. She also was found to have a T8 compression fracture that has progressed on x-ray. This is possibly related to steroids. Pulmonary service has decreased prednisone to 20 mg daily. She remains on the IV Lasix for her congestive heart failure. Weight has decreased from 93 to 89.7 kg. Patient is complaining of constipation. On 06/21/2018 patient is currently sitting comfortably in bed. Does state when she gets up she is restroom that she still becomes very short of breath. Dr. Johnson has been consulted for T8 compression fracture. Awaiting consult. Potassium 3.2 replacement has been ordered. Pulmonology will continue IV diuretics for another 24 hours. Denies chest pain or shortness breath. Patient states she had a bowel movement this a.m. 06/22/2018 patient still complaining of back pain. Pain Medication does help. She is still having some shortness of breath. Cardiology is recommending IV Lasix for another 24 hours. Her weight did increase to 90.[address] Johnson is out of town. Objective - Vital Signs Vital signs: Vital Signs Temp 97.7 F 06/21/18 20:00 Pulse 86 06/22/18 13:50 Resp 16 06/22/18 12:00 BP 130/66 06/22/18 12:00 Pulse Ox 100 06/22/18 08:00 Intake & Output 06/21/18 06/22/18 06/22/18 18:59 06:59 18:59 Intake Total 580 240 Output Total 1000 1750 1500 Balance -420 -1750 -1260 Weight 90.4 kg Intake: Oral 580 240 Output: Urine 1000 1750 1500 Other: Voiding Method Toilet Toilet Toilet # Voids 2 3 # Bowel Movements 0 - Exam Head normocephalic Neck supple Lungs clear to auscultation bilaterally no wheezing or crackles Heart few crackles at bases bilaterally Abdomen is soft nontender nondistended positive bowel sounds no hepatosplenomegaly Extremities trace edema Neuro alert and orientated to 3 - Labs CBC & Chem 7: 06/22/18 05:28 06/22/18 05:28 Labs: Abnormal Lab Results - Last 24 Hours (Table) 06/22/18 06/22/18 Range/Units 05:28 05:28 WBC 15.1 H (3.8-10.6) k/uL Hgb 9.9 L (11.4-16.0) gm/dL Hct 32.3 L (34.0-46.0) % MCH 24.7 L (25.0-35.0) pg MCHC 30.6 L (31.0-37.0) g/dL RDW 19.4 H (11.5-15.5) % Neutrophils # 12.1 H (1.3-7.7) k/uL Chloride 95 L (98-107) mmol/L Carbon Dioxide 38 H (22-30) mmol/L BUN 24 H (7-17) mg/dL Total Protein 5.9 L (6.3-8.2) g/dL Albumin 3.4 L (3.5-5.0) g/dL Microbiology - Last 24 Hours (Table) 06/19/18 10:44 Blood Culture - Preliminary Blood No Growth after 72 hours Assessment and Plan Assessment: 1. Shortness of breath: Possibly related to congestive heart failure exacerbation and bronchiolitis obliterans with organizing pneumonia. Appreciate pulmonary service recommendations 2. Acute on chronic diastolic congestive heart failure exacerbation: BNP minimally elevated 996. Continue IV Lasix. Echo shows an EF of 50-55% mild aortic stenosis and mild pulmonary hypertension. Patient has had 10 pound weight gain and lower extremity edema. Cardiology recommending IV Lasix for another 24 hours 3. Leukocytosis: Likely related to the prednisone patient is on outpatient. White count is trending down 4. Anemia with known history of iron deficiency anemia: No reports of bleeding. Patient iron level still low at 37. Increase ferrous sulfate 325 mg twice a day. Hemoglobin increased to 11.2 5. History of bronchiolitis obliterans with organizing pneumonia: Currently on prednisone 30 mg daily. Pulmonary service decrease prednisone to 20 mg daily due to weight gain and back fracture 6. History of Hodgkin's lymphoma treated with chemo and radiation treatment in 1978 7. History of breast cancer with mastectomy 2004 8. Renal cancer status post partial right nephrectomy December 2017. Renal ultrasound from 06/15/2018 shows no suspicious findings 9. Hypothyroidism continue Synthroid 10. Essential hypertension: Patient's blood pressures are on the lower side. Cozaar held. pulmonary service discontinued the hydrochlorothiazide and changed Aldactone to 25 mg twice a day. Place parameters to hold her Aldactone for systolic blood pressure less than 115 11. History of persistent asthma: Continue nebulizer treatments and Pulmicort 12. T8 compression fracture that has progressed noted on thoracic spine x-ray. Consult physical therapy. Continue [place] 5 one every 6 hours as needed for pain. Dr. Johnson spinal surgeon not available at this time. We'll consult Dr. Dumont Continue with physical therapy. Patient will likely require placement in ECF Anticipated discharge possibly tomorrow GI prophylaxis Pepcid and DVT prophylaxis Lovenox I performed an examination of the patient and discussed their management with the physician Schedule Planning Manager. I have reviewed the Physician Schedule Planning Manager's notes and agree with the documented findings and plan of care
--- NOTE | 2018-06-22 15:19 | P.PN ---
Subjective Progress Note Date: 06/22/18 Principal diagnosis: Acute on chronic congestive heart failure, with diastolic dysfunction, worsening dyspnea, peripheral edema, weight gain. History of BOOP Mrs. Clark is a 63-year-old white female patient of Dr. Naqvi, with a known history of biopsy-proven bronchiolitis obliterans organizing pneumonia, history of left breast cancer, status post mastectomy, and reconstructive surgery, Hodgkin's lymphoma status post radiation, GERD, hypertension, hyperlipidemia, obstructive sleep apnea on CPAP therapy, congestive heart failure with diastolic dysfunction, Yuri thyroiditis, chronic bronchial asthma, and depression, presented to the hospital today on 06/19/2018 at 1017 for evaluation of severe dyspnea, she felt like she was "dying", sharp chest discomfort over anterior and lower posterior chest that was exacerbated by episodes of coughing. Her cough was dry in nature, nonproductive. She denied chest congestion or phlegm production. She denied hemoptysis. She denied fever or chills. She states she noted increased peripheral swelling in her bilateral lower extremities, he put on 6 pounds overnight, 10 pounds in one week , in addition to being increasingly short of breath. Patient is on home dose Lasix of 40 mg daily, in addition to Aldactazide 2525 milligram, and she states her Lasix was recently increased by Dr. Naqvi in regards to increasing swelling. Of note patient had a recent right renal mass resected from the right kidney in February, at [facility], which was found to be cancerous, the results of biopsy are not available to us . Patient reports decreased urination, increased fluid retention, probably related to chronic high -dose prednisone use. Ultrasound of the kidneys showed no evidence of hydronephrosis Patient's was diagnosed with BOOP last September after she had lung wedge biopsy done by Dr. Peralta. Patient was then started on his dose steroids at 40 mg daily, patient has had significant weight increase of around 26 pounds since September 2017. Office PFTs demonstrated improvements in her pulmonary function, from FEV of 1.09 L or 43% of predicted from August 2017 to 1.43 L or 60% of predicted on most recent PFT on 05/23/2018 after initiation of prednisone. After while her maintenance dose prednisone was brought down to 7.5 daily, and the patient was experiencing significant shortness of breath and decreased exercise capacity, after which the dose was increased to 40 mg. With dose decrease to 30, she almost immediately experienced worsening symptoms of cough and dyspnea. Most recently on 05/23/2018 prednisone dose was decreased to 30 mg daily, her PFTs remain stable, with FEV1 at around 61%. Patient however states she has been unable to work, she has been off work for almost a month related to her dyspnea, she describes inability to concentrate on work details, "fogginess", she describes being severely dyspneic and fatigued just walking to the [employer] machine. 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 Chest x-ray was completed in the emergency department, and showed cardiomegaly, mediastinal and hilar calcified lymph nodes compatible with prior granulomatous disease, diffuse interstitial and vascular prominence with curly B lines, there is a trace pleural effusion. She was a mild anterior wedging of a mid thoracic vertebral body that appeared to be new compared to previous chest x-ray from 06/06/2018. D-dimer was elevated at 1.22, and CT angios was done, and showed no acute pulmonary embolism, a few scattered punctate lung nodules, and small left pleural effusion. EKG showed sinus tachycardia with left bundle branch block with a rate of 106 BPM, with no acute ischemic changes. Lab work showed leukocytosis with a VBC of 17.1, hemoglobin of 10.9, electrolytes are within normal limits, BUN was 31, creatinine is 0.90, LFTs were normal, troponin was 0.019, proBNP was slightly elevated at 996. We're consulted in regards to acute on chronic shortness of breath which seems to be multifactorial, related to chronic underlying BOOP, and there is a component of fluid overload. On 06/20/2018 patient seen in follow-up on selective care unit. She is diuresing well, she is in -1280 mL fluid balance. Appearance of peripheral edema is improving, patient still has some trace pretibial edema. On sounds positive for scattered bibasilar crackles, slightly improved from yesterday's exam. Remains on 3 L per nasal cannula, her pulse ox is 96%, she denies any chest pain. Tachycardic, with heart rate from 110-120 BPM. Short of breath with exertion, and at rest. Her back pain is better controlled, thoracic spine x-ray showed T8 compression fracture and stable 20% wedging of T6. Patient has underlying valvular heart disease, awaiting to be seen by cardiology. Her prednisone dose will be decreased to 20 mg today. On 06/21/2018 patient seen in follow-up on selective care unit. Complains of significant exertional dyspnea, still has residual swelling in bilateral lower extremities, although it is improving. Patient remains on IV diuretics, diuresing well, she is in -2010 mL fluid balance over the last 24 hours. Currently on room air, she wears oxygen intermittently, sucks on 2 L per nasal cannula was 100%, she is afebrile, tachycardic, with a rate of 104 BPM. Occasional cough, no phlegm production. Blood cultures showed no growth to date. We'll continue with current medical treatment, continue IV diuresis for another 24 hours. Patient is still having some back pain, she was found to have T8 compression fracture. The possibility of subacute rehab after discharge was discussed with the patient, in view of her significant activity limitation related to exertional dyspnea, and pain. On 06/22/2018 patient seen in follow-up. Complains of exertional dyspnea, she states her breathing is about the same. Still having back discomfort. Orthopedic surgery was consulted in regards to the compression fracture of T8 spine. Still have some pretibial edema, she has been diuresing, she is in - 1020 ML over the last 24 hours. Lung sounds reveal diminished breath sounds, with minimal crackles at the left lower base. No rhonchi, no wheezes. On 2 L per nasal cannula patient's pulse ox 100%. Today's labs were reviewed, WBC is 15.1, hemoglobin is 9.9, sodium is 140, potassium is 4.2, chloride is 95, CO2 is 38, BUN is 24, creatinine 0.77. Cardiology is following, IV Lasix was decreased to 40 mg every 12 hours. Objective - Vital Signs Vital signs: Vital Signs Temp 97.7 F 06/21/18 20:00 Pulse 86 06/22/18 13:50 Resp 16 06/22/18 12:00 BP 130/66 06/22/18 12:00 Pulse Ox 100 06/22/18 08:00 Intake & Output 06/21/18 06/22/18 06/22/18 18:59 06:59 18:59 Intake Total 580 480 Output Total 1000 1750 1500 Balance -420 -1750 -1020 Weight 90.4 kg Intake: Oral 580 480 Output: Urine 1000 1750 1500 Other: Voiding Method Toilet Toilet Toilet # Voids 2 3 # Bowel Movements 0 - Exam GENERAL EXAM: Alert, pleasant, 63-year-old obese white female, comfortable in no apparent distress. HEAD: Normocephalic/atraumatic. EYES: Normal reaction of pupils, equal size. Conjunctiva pink, sclera white. NOSE: Clear with pink turbinates. THROAT: No erythema or exudates. NECK: No masses, no JVD, no thyroid enlargement, no adenopathy. CHEST: No chest wall deformity. Symmetrical expansion. LUNGS: Equal air entry with minimal crackles at the left lower base, wheezes, no rhonchi CVS: Regular rate and rhythm, normal S1 and S2, no gallops, no murmurs, no rubs ABDOMEN: Soft, nontender. No hepatosplenomegaly, normal bowel sounds, no guarding or rigidity. EXTREMITIES: No clubbing, no cyanosis, 2+ pulses and upper and lower extremities. Patient still has residual pretibial and pedal edema, slightly improved MUSCULOSKELETAL: Muscle strength and tone normal. SPINE: No scoliosis or deformity SKIN: No rashes CENTRAL NERVOUS SYSTEM: Alert and oriented -3. No focal deficits, tone is normal in all 4 extremities. PSYCHIATRIC: Alert and oriented -3. Appropriate affect. Intact judgment and insight. - Labs CBC & Chem 7: 06/22/18 05:28 18 05:28 Labs: Abnormal Lab Results - Last 24 Hours (Table) 06/22/18 06/22/18 Range/Units 05:28 05:28 WBC 15.1 H (3.8-10.6) k/uL Hgb 9.9 L (11.4-16.0) gm/dL Hct 32.3 L (34.0-46.0) % MCH 24.7 L (25.0-35.0) pg MCHC 30.6 L (31.0-37.0) g/dL RDW 19.4 H (11.5-15.5) % Neutrophils # 12.1 H (1.3-7.7) k/uL Chloride 95 L (98-107) mmol/L Carbon Dioxide 38 H (22-30) mmol/L BUN 24 H (7-17) mg/dL Total Protein 5.9 L (6.3-8.2) g/dL Albumin 3.4 L (3.5-5.0) g/dL Microbiology - Last 24 Hours (Table) 06/19/18 10:44 Blood Culture - Preliminary Blood No Growth after 72 hours Assessment and Plan Plan: Assessment: #1. Acute on chronic congestive heart failure, with diastolic dysfunction. Last echocardiogram from 04/07/2017 showed preserved left ventricular systolic function of 55-60% and mild pulmonary hypertension with right ventricular systolic pressure of 45 mmHg. #2. History of valvular heart disease, moderate to severe aortic regurgitation and mild to moderate mitral regurgitation as seen on previous echo from 2016 #3. Acute dyspnea, 6 pound weight gain in 24 hours, increased peripheral edema secondary to above #4. Elevated d-dimer, nonspecific, CT angios negative for pulmonary embolus #5. History of BOOP (Bronchiolitis Obliterans Organizing Pneumonia, with chronic dyspnea, chronic hypoxemic respiratory failure, and limited exercise capacity. This was biopsy-proven via lung wedge resection in September 2017, patient is on maintenance dose of prednisone 30 mg daily #6. Leukocytosis #7. Microcytic anemia #8. Hodgkin's lymphoma, status post radiation #9. History of left breast cancer, status post mastectomy and reconstructive surgery #10. History of persistent asthma, appears to be stable #11. Obstructive sleep apnea, on CPAP therapy, compliant #12. Past medical history of congestive heart failure with diastolic dysfunction, GERD/reflux, hypertension, hyperlipidemia, Yuri's thyroiditis , on thyroid replacement Plan: Continue with IV diuresis, continue with prednisone 20 mg daily, bronchodilators. Bilateral lower extremity edema is improving, minimal crackles at the left lower base. No distress, patient is improving. Complaint is her back pain, and she is awaiting to be evaluated by orthopedic surgery. I performed a history & physical examination of the patient and discussed their management with my nurse practitioner, Esther Yusuf. I reviewed the nurse practitioner's note and agree with the documented findings and plan of care. Lung sounds are positive for minimal crackles at the left lower base. The findings and the impression was discussed with the patient. I attest to the documentation by the nurse practitioner. Time with Patient: Less than 30
[2018-06-22] MEDS: SERTRALINE 100 MG TAB PO SCH (16:29)
[2018-06-22] MEDS: MONTELUKAST 10 MG TAB PO SCH (20:15)
[2018-06-22] MEDS: ATORVASTATIN 20 MG TAB PO SCH (20:15)
[2018-06-22] MEDS: FAMOTIDINE 20 MG TAB PO PRN (23:47)
[2018-06-23] MEDS: HYDROcodone/APAP 5-325MG 1 EACH TAB PO PRN ×2 (03:03→08:37)
[2018-06-23 06:08] LABS: Anisocytosis Slight; Basophils % (A) 0 %; Eosinophils # (A) 0.2 k/uL (0-0.7); Eosinophils % (A) 1 %; HCT 32.6 % (34.0-46.0); HGB 9.9 gm/dL (11.4-16.0); Hypochromasia Moderate; Lymphocytes # (A) 1.9 k/uL (1.0-4.8); Lymphocytes % (A) 12 %; MCH 24.6 pg (25.0-35.0); MCHC 30.3 g/dL (31.0-37.0); Mean Platelet Volume 6.9; Microcytosis Slight; Monocytes # (A) 0.6 k/uL (0-1.0); Monocytes % (A) 4 %; Neutrophils # (A) 13.2 k/uL (1.3-7.7); Neutrophils % (A) 82 %; Platelet Count 409 k/uL (150-450); RBC 4.02 m/uL (3.80-5.40); RDW 19.2 % (11.5-15.5); WBC 16.1 k/uL (3.8-10.6)
[2018-06-23] MEDS: LEVOTHYROXINE 100 MCG TAB PO SCH (06:18)
[2018-06-23] MEDS: PANTOPRAZOLE 40 MG TABLET PO SCH (06:18)
[2018-06-23 06:27] LABS: ALT 32 U/L (9-52); AST 17 U/L (14-36); Albumin 3.4 g/dL (3.5-5.0); Alkaline Phosphatase 65 U/L (38-126); Anion Gap 7 mmol/L; Blood Urea Nitrogen 25 mg/dL (7-17); Calcium 9.5 mg/dL (8.4-10.2); Carbon Dioxide 39 mmol/L (22-30); Chloride 93 mmol/L (98-107); Glucose 96 mg/dL (74-99); Potassium 4.2 mmol/L (3.5-5.1); Sodium 139 mmol/L (137-145); Total Bilirubin 0.4 mg/dL (0.2-1.3); Total Protein 5.8 g/dL (6.3-8.2)
[2018-06-23] MEDS: ARIPiprazole 2 MG TAB PO SCH (08:33)
[2018-06-23] MEDS: DOCUSATE 100 MG CAP PO SCH ×2 (08:33→21:20)
[2018-06-23] MEDS: ENOXAPARIN 40 MG/0.4 ML SYRINGE SQ SCH (08:33)
[2018-06-23] MEDS: SPIRONOLACTONE 25 MG TAB PO SCH ×2 (08:33→16:27)
[2018-06-23] MEDS: FUROSEMIDE 10 MG/ML 4 ML VIAL IV SCH (08:33)
[2018-06-23] MEDS: predniSONE 20 MG TAB PO SCH (08:33)
[2018-06-23] MEDS: FAMOTIDINE 20 MG TAB PO SCH (08:33)
[2018-06-23] MEDS: METOPROLOL SUCCINATE (ER) 25 MG TAB.ER.24H PO SCH (08:33)
[2018-06-23] MEDS: FERROUS SULFATE 325 MG TAB PO SCH ×2 (08:34→21:20)
[2018-06-23] MEDS: ALPRAZolam 0.5 MG TAB PO PRN ×2 (08:36→16:26)
[2018-06-23] MEDS: IPRATROPIUM-ALBUTEROL 3 ML NEB INHALATION SCH ×3 (08:47→20:25)
[2018-06-23] MEDS: SYMBICORT 160-4.5 MCG INHALER INHALATION SCH ×2 (08:47→20:25)
--- NOTE | 2018-06-23 11:01 | PN ---
PROGRESS NOTE Mrs. Clark is a 63-year-old female who presented with symptoms of progressive dyspnea. She has a history of bronchiolitis obliterans organizing pneumonia. She is feeling better today. Her breathing is better. She continues to have cough. She has no chest pain. She has some back pain radiating to the right side related to her back vertebra fracture. She has no dizziness or palpitation. She continued to be in sinus mechanism. Her cough has improved. She has continued to be at this time on Abilify, Lipitor 20 mg daily, Lovenox, Lasix 40 mg IV q.12 hours, metoprolol succinate 25 mg daily, spironolactone 25 mg daily, sertraline. PHYSICAL EXAMINATION: Blood pressure 123/60 with the heart rate in 90s. LUNGS: With no wheezes with decreased air exchange. HEART: Regular rate and rhythm. S1, S2. No S3 with systolic murmur heard at the base, ejection type. No diastolic murmur. No rub. ABDOMEN: Soft, nontender. EXTREMITIES: No edema. IMPRESSION: 1. Dyspnea on exertion, multifactorial with a history of bronchiolitis obliterans organizing pneumonia and possibly an element of diastolic dysfunction heart failure. 2. History of Hodgkin's lymphoma. 3. History of breast cancer and mastectomy. 4. Hyperlipidemia. RECOMMENDATION: I will switch her to oral diuretics at this time. Continue the rest of medical regimen. Increase her level of activity. From the cardiac standpoint, she is stable on her present regimen. MMODL / IJN: [id number] /
--- NOTE | 2018-06-23 13:02 | P.PN ---
Subjective Progress Note Date: 06/23/18 This is a 63-year-old female with a known past medical history of obliterans bronchiolitis, Hodgkin's lymphoma status post chemo and radiation treatment in 1978, breast cancer with mastectomy 2004, kidney cancer December 2017 with removal of tumor. Also history of asthma, GERD, hyperlipidemia, hypertension, iron deficiency anemia, hypothyroidism and diastolic congestive heart failure. Patient presents to emergency room with complaints of shortness of breath that has worsened over the last 2 days. Patient reports that she is always having some shortness of breath. Over the last 2 days it is significantly worsened. She has had about a 10 pound weight gain less than 1 week. She has lower extremity edema. She is also noted some increase in swelling and redness of her face. She was diagnosed with the BOOP September 2017 and has had been on prednisone 30 mg daily since. Patient has noticed worsening shortness of breath with any activity. On admission white count was 17.1 hemoglobin 10.9. Troponins negative. EKG had shown sinus tachycardia with a heart rate of 106 and a left bundle branch block. Chest x-ray reports correlate for CHF with early interstitial pulmonary edema. Also noted a mild anterior wedging of a mid thoracic vertebral body appears new from 06/06/2018. Patient is complaining of upper back pain. CT of the chest shows no acute pulmonary embolism. Few scattered punctate lung nodules and small left pleural effusion. Initially patient wasn't be discharged home from the ER. However, she did not feel comfortable going home because this morning her breathing was so bad she felt that she might or pass out. Therefore patient will be admitted to the hospital. Pulmonary service has been consulted. They have placed her on IV Lasix. Patient denies any fever or chills. She reports having sweats. She denies any nausea or vomiting bowel movement changes or urinary symptoms. 06/20/2018 patient still having some shortness of breath. She had a episode this morning where she went to use the restroom and became very short of breath had to call nursing staff for help. Oxygen saturation was checked at that time it was 93%. Patient was given Xanax and reported that it helped with her breathing. She also was found to have a T8 compression fracture that has progressed on x-ray. This is possibly related to steroids. Pulmonary service has decreased prednisone to 20 mg daily. She remains on the IV Lasix for her congestive heart failure. Weight has decreased from 93 to 89.7 kg. Patient is complaining of constipation. On 06/21/2018 patient is currently sitting comfortably in bed. Does state when she gets up she is restroom that she still becomes very short of breath. Dr. Johnson has been consulted for T8 compression fracture. Awaiting consult. Potassium 3.2 replacement has been ordered. Pulmonology will continue IV diuretics for another 24 hours. Denies chest pain or shortness breath. Patient states she had a bowel movement this a.m. 06/22/2018 patient still complaining of back pain. Pain Medication does help. She is still having some shortness of breath. Cardiology is recommending IV Lasix for another 24 hours. Her weight did increase to 90.[address] Johnson is out of town. 06/23/2018 patient reporting that her back pain has worsened. Pain is radiating from her back along the right side. Patient has been seen by cardiology and cleared for discharge. Patient is waiting to be seen by orthopedics regards to her T8 fracture. Cardiology is placed her on oral Lasix. [place] will be increased to 7.5 every 6 hours as needed for pain Objective - Vital Signs Vital signs: Vital Signs Temp 96.2 F L 06/23/18 11:24 Pulse 95 06/23/18 11:24 Resp 18 06/23/18 11:25 BP 103/55 06/23/18 11:24 Pulse Ox 99 06/23/18 11:24 Intake & Output 06/22/18 06/23/18 06/23/18 18:59 06:59 18:59 Intake Total 480 24 120 Output Total 2049 3000 1200 Balance -1069 -4195 -1419 Weight 90 kg Intake: IV 24 0.9% NS FLUSH 20 Lasix 40mg/4mL 4 Oral 480 120 Output: Urine 1500 3000 1200 Stool 550 Other: Voiding Method Toilet Toilet # Voids 2 3 2 # Bowel Movements 0 - Exam Head normocephalic Neck supple Lungs clear to auscultation bilaterally no wheezing or crackles Heart clear to auscultation no crackles noted Abdomen is soft nontender nondistended positive bowel sounds no hepatosplenomegaly Extremities no edema Neuro alert and orientated to 3 - Labs CBC & Chem 7: 06/23/18 05:10 06/23/18 05:10 Labs: Abnormal Lab Results - Last 24 Hours (Table) 06/23/18 06/23/18 Range/Units 05:10 05:10 WBC 16.1 H (3.8-10.6) k/uL Hgb 9.9 L (11.4-16.0) gm/dL Hct 32.6 L (34.0-46.0) % MCH 24.6 L (25.0-35.0) pg MCHC 30.3 L (31.0-37.0) g/dL RDW 19.2 H (11.5-15.5) % Neutrophils # 13.2 H (1.3-7.7) k/uL Chloride 93 L (98-107) mmol/L Carbon Dioxide 39 H (22-30) mmol/L BUN 25 H (7-17) mg/dL Total Protein 5.8 L (6.3-8.2) g/dL Albumin 3.4 L (3.5-5.0) g/dL Microbiology - Last 24 Hours (Table) 06/19/18 10:44 Blood Culture - Preliminary Blood No Growth after 72 hours Assessment and Plan Assessment: 1. Shortness of breath: Possibly related to congestive heart failure exacerbation and bronchiolitis obliterans with organizing pneumonia. Patient has been cleared by cardiology and pulmonary services for discharge 2. Acute on chronic diastolic congestive heart failure exacerbation: BNP minimally elevated 996. Echo shows an EF of 50-55% mild aortic stenosis and mild pulmonary hypertension. Patient has had 10 pound weight gain and lower extremity edema. Cardiology discontinued IV lasix and started oral lasix 3. Leukocytosis: Likely related to the prednisone patient is on outpatient. White count is trending down 4. Anemia with known history of iron deficiency anemia: No reports of bleeding. Patient iron level still low at 37. Increase ferrous sulfate 325 mg twice a day. Hemoglobin increased to 11.2 5. History of bronchiolitis obliterans with organizing pneumonia: Currently on prednisone 30 mg daily. Pulmonary service decrease prednisone to 20 mg daily due to weight gain and back fracture 6. History of Hodgkin's lymphoma treated with chemo and radiation treatment in 1978 7. History of breast cancer with mastectomy 2004 8. Renal cancer status post partial right nephrectomy December 2017. Renal ultrasound from 06/15/2018 shows no suspicious findings 9. Hypothyroidism continue Synthroid 10. Essential hypertension: Patient's blood pressures are on the lower side. Cozaar held. pulmonary service discontinued the hydrochlorothiazide and changed Aldactone to 25 mg twice a day. Place parameters to hold her Aldactone for systolic blood pressure less than 115 11. History of persistent asthma: Continue nebulizer treatments and Pulmicort 12. T8 compression fracture that has progressed noted on thoracic spine x-ray. Consult physical therapy. Patient complaining of worsening back pain. Will increase the [place] to 7.5 every 6 hours as needed for pain. Awaiting orthopedic consult and their recommendations Patient has worked with physical therapy they're recommending home with home care Anticipate discharge possibly later today or tomorrow GI prophylaxis Pepcid and DVT prophylaxis Lovenox I performed an examination of the patient and discussed their management with the physician Medicinal Plant Picker. I have reviewed the Physician Medicinal Plant Picker's notes and agree with the documented findings and plan of care
--- NOTE | 2018-06-23 13:18 | P.PN ---
Subjective Progress Note Date: 06/23/18 Principal diagnosis: Acute on chronic congestive heart failure, with diastolic dysfunction, worsening dyspnea, peripheral edema, weight gain. History of BOOP Mrs. Clark is a 63-year-old white female patient of Dr. Naqvi, with a known history of biopsy-proven bronchiolitis obliterans organizing pneumonia, history of left breast cancer, status post mastectomy, and reconstructive surgery, Hodgkin's lymphoma status post radiation, GERD, hypertension, hyperlipidemia, obstructive sleep apnea on CPAP therapy, congestive heart failure with diastolic dysfunction, Yuri thyroiditis, chronic bronchial asthma, and depression, presented to the hospital today on 06/19/2018 at 1017 for evaluation of severe dyspnea, she felt like she was "dying", sharp chest discomfort over anterior and lower posterior chest that was exacerbated by episodes of coughing. Her cough was dry in nature, nonproductive. She denied chest congestion or phlegm production. She denied hemoptysis. She denied fever or chills. She states she noted increased peripheral swelling in her bilateral lower extremities, he put on 6 pounds overnight, 10 pounds in one week , in addition to being increasingly short of breath. Patient is on home dose Lasix of 40 mg daily, in addition to Aldactazide 2525 milligram, and she states her Lasix was recently increased by Dr. Naqvi in regards to increasing swelling. Of note patient had a recent right renal mass resected from the right kidney in February, at [facility], which was found to be cancerous, the results of biopsy are not available to us . Patient reports decreased urination, increased fluid retention, probably related to chronic high -dose prednisone use. Ultrasound of the kidneys showed no evidence of hydronephrosis Patient's was diagnosed with BOOP last September after she had lung wedge biopsy done by Dr. Peralta. Patient was then started on his dose steroids at 40 mg daily, patient has had significant weight increase of around 26 pounds since September 2017. Office PFTs demonstrated improvements in her pulmonary function, from FEV of 1.09 L or 43% of predicted from August 2017 to 1.43 L or 60% of predicted on most recent PFT on 05/23/2018 after initiation of prednisone. After while her maintenance dose prednisone was brought down to 7.5 daily, and the patient was experiencing significant shortness of breath and decreased exercise capacity, after which the dose was increased to 40 mg. With dose decrease to 30, she almost immediately experienced worsening symptoms of cough and dyspnea. Most recently on 05/23/2018 prednisone dose was decreased to 30 mg daily, her PFTs remain stable, with FEV1 at around 61%. Patient however states she has been unable to work, she has been off work for almost a month related to her dyspnea, she describes inability to concentrate on work details, "fogginess", she describes being severely dyspneic and fatigued just walking to the [employer] machine. 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 Chest x-ray was completed in the emergency department, and showed cardiomegaly, mediastinal and hilar calcified lymph nodes compatible with prior granulomatous disease, diffuse interstitial and vascular prominence with curly B lines, there is a trace pleural effusion. She was a mild anterior wedging of a mid thoracic vertebral body that appeared to be new compared to previous chest x-ray from 06/06/2018. D-dimer was elevated at 1.22, and CT angios was done, and showed no acute pulmonary embolism, a few scattered punctate lung nodules, and small left pleural effusion. EKG showed sinus tachycardia with left bundle branch block with a rate of 106 BPM, with no acute ischemic changes. Lab work showed leukocytosis with a VBC of 17.1, hemoglobin of 10.9, electrolytes are within normal limits, BUN was 31, creatinine is 0.90, LFTs were normal, troponin was 0.019, proBNP was slightly elevated at 996. We're consulted in regards to acute on chronic shortness of breath which seems to be multifactorial, related to chronic underlying BOOP, and there is a component of fluid overload. On 06/20/2018 patient seen in follow-up on selective care unit. She is diuresing well, she is in -1280 mL fluid balance. Appearance of peripheral edema is improving, patient still has some trace pretibial edema. On sounds positive for scattered bibasilar crackles, slightly improved from yesterday's exam. Remains on 3 L per nasal cannula, her pulse ox is 96%, she denies any chest pain. Tachycardic, with heart rate from 110-120 BPM. Short of breath with exertion, and at rest. Her back pain is better controlled, thoracic spine x-ray showed T8 compression fracture and stable 20% wedging of T6. Patient has underlying valvular heart disease, awaiting to be seen by cardiology. Her prednisone dose will be decreased to 20 mg today. On 06/21/2018 patient seen in follow-up on selective care unit. Complains of significant exertional dyspnea, still has residual swelling in bilateral lower extremities, although it is improving. Patient remains on IV diuretics, diuresing well, she is in -2010 mL fluid balance over the last 24 hours. Currently on room air, she wears oxygen intermittently, sucks on 2 L per nasal cannula was 100%, she is afebrile, tachycardic, with a rate of 104 BPM. Occasional cough, no phlegm production. Blood cultures showed no growth to date. We'll continue with current medical treatment, continue IV diuresis for another 24 hours. Patient is still having some back pain, she was found to have T8 compression fracture. The possibility of subacute rehab after discharge was discussed with the patient, in view of her significant activity limitation related to exertional dyspnea, and pain. On 06/22/2018 patient seen in follow-up. Complains of exertional dyspnea, she states her breathing is about the same. Still having back discomfort. Orthopedic surgery was consulted in regards to the compression fracture of T8 spine. Still have some pretibial edema, she has been diuresing, she is in - 1020 ML over the last 24 hours. Lung sounds reveal diminished breath sounds, with minimal crackles at the left lower base. No rhonchi, no wheezes. On 2 L per nasal cannula patient's pulse ox 100%. Today's labs were reviewed, WBC is 15.1, hemoglobin is 9.9, sodium is 140, potassium is 4.2, chloride is 95, CO2 is 38, BUN is 24, creatinine 0.77. Cardiology is following, IV Lasix was decreased to 40 mg every 12 hours. On 11/23/2018 patient seen in follow-up on selective care unit. Denies any dyspnea, she has ongoing back pain, and it is essentially her only complaint today. He is awaiting to be seen by orthopedic surgery in regards to the compression fracture of T-spine. He remains stable, improving, wearing her oxygen intermittently, on 2 L per nasal cannula pulse ox is 99%, vital signs are stable. Blood cultures are negative. Lung sounds are clear. Bilateral lower extremity edema is much improved, her IV diuretics will be transitioned to oral. She remains stable from pulmonary standpoint, and can be cleared for discharge. Objective - Vital Signs Vital signs: Vital Signs Temp 96.2 F L 06/23/18 11:24 Pulse 95 06/23/18 11:24 Resp 18 06/23/18 11:25 BP 103/55 06/23/18 11:24 Pulse Ox 99 06/23/18 11:24 Intake & Output 06/22/18 06/23/18 06/23/18 18:59 06:59 18:59 Intake Total 480 24 120 Output Total 2050 3000 1200 Balance -1570 -2976 -1080 Weight 90 kg Intake: IV 24 0.9% NS FLUSH 20 Lasix 40mg/4mL 4 Oral 480 120 Output: Urine 1500 3000 1200 Stool 550 Other: Voiding Method Toilet Toilet # Voids 2 3 2 # Bowel Movements 0 - Exam GENERAL EXAM: Alert, pleasant, 63-year-old obese white female, comfortable in no apparent distress. HEAD: Normocephalic/atraumatic. EYES: Normal reaction of pupils, equal size. Conjunctiva pink, sclera white. NOSE: Clear with pink turbinates. THROAT: No erythema or exudates. NECK: No masses, no JVD, no thyroid enlargement, no adenopathy. CHEST: No chest wall deformity. Symmetrical expansion. LUNGS: Clear lung sounds CVS: Regular rate and rhythm, normal S1 and S2, no gallops, no murmurs, no rubs ABDOMEN: Soft, nontender. No hepatosplenomegaly, normal bowel sounds, no guarding or rigidity. EXTREMITIES: No clubbing, no cyanosis, 2+ pulses and upper and lower extremities. Lower extremity edema has resolved MUSCULOSKELETAL: Muscle strength and tone normal. SPINE: No scoliosis or deformity SKIN: No rashes CENTRAL NERVOUS SYSTEM: Alert and oriented -3. No focal deficits, tone is normal in all 4 extremities. PSYCHIATRIC: Alert and oriented -3. Appropriate affect. Intact judgment and insight. - Labs CBC & Chem 7: 06/23/18 05:10 06/23/18 05:10 Labs: Abnormal Lab Results - Last 24 Hours (Table) 06/23/18 06/23/18 Range/Units 05:10 05:10 WBC 16.1 H (3.8-10.6) k/uL Hgb 9.9 L (11.4-16.0) gm/dL Hct 32.6 L (34.0-46.0) % MCH 24.6 L (25.0-35.0) pg MCHC 30.3 L (31.0-37.0) g/dL RDW 19.2 H (11.5-15.5) % Neutrophils # 13.2 H (1.3-7.7) k/uL Chloride 93 L (98-107) mmol/L Carbon Dioxide 39 H (22-30) mmol/L BUN 25 H (7-17) mg/dL Total Protein 5.8 L (6.3-8.2) g/dL Albumin 3.4 L (3.5-5.0) g/dL Microbiology - Last 24 Hours (Table) 06/19/18 10:44 Blood Culture - Preliminary Blood No Growth after 96 hours Assessment and Plan Plan: Assessment: #1. Acute on chronic congestive heart failure, with diastolic dysfunction. Last echocardiogram from 04/07/2017 showed preserved left ventricular systolic function of 55-60% and mild pulmonary hypertension with right ventricular systolic pressure of 45 mmHg. #2. History of valvular heart disease, moderate to severe aortic regurgitation and mild to moderate mitral regurgitation as seen on previous echo from 2016 #3. Acute dyspnea, 6 pound weight gain in 24 hours, increased peripheral edema secondary to above #4. Elevated d-dimer, nonspecific, CT angios negative for pulmonary embolus #5. History of BOOP (Bronchiolitis Obliterans Organizing Pneumonia, with chronic dyspnea, chronic hypoxemic respiratory failure, and limited exercise capacity. This was biopsy-proven via lung wedge resection in September 2017, patient is on maintenance dose of prednisone 30 mg daily #6. Leukocytosis #7. Microcytic anemia #8. Hodgkin's lymphoma, status post radiation #9. History of left breast cancer, status post mastectomy and reconstructive surgery #10. History of persistent asthma, appears to be stable #11. Obstructive sleep apnea, on CPAP therapy, compliant #12. Past medical history of congestive heart failure with diastolic dysfunction, GERD/reflux, hypertension, hyperlipidemia, Yuri's thyroiditis , on thyroid replacement Plan: Patient is stable, denies any dyspnea, agree with transitioning IV diuretics to oral, patient can continue on maintenance dose of prednisone 20 mg daily, she can continue her maintenance inhalers and nebulized treatments. She can be cleared for discharge. We'll follow up with Dr. Contreras in the office in 7-10 days. We will see the patient on as-needed basis. She is awaiting to be seen by orthopedic surgery. I performed a history & physical examination of the patient and discussed their management with my nurse practitioner, Esther Yusuf. I reviewed the nurse practitioner's note and agree with the documented findings and plan of care. Lung sounds are clear. The findings and the impression was discussed with the patient. I attest to the documentation by the nurse practitioner. Time with Patient: Less than 30
[2018-06-23] MEDS: HYDROcodone/APAP 7.5-325MG 1 EACH TAB PO PRN ×2 (16:26→21:20)
[2018-06-23] MEDS: SERTRALINE 100 MG TAB PO SCH (16:27)
--- NOTE | 2018-06-23 20:31 | MR ---
EXAMINATION TYPE: MR thoracic spine wo con DATE OF EXAM: 06/23/2018 COMPARISON: 06/19/2018 HISTORY: Worsening back pain, hx hodgkins/breast ca Standard multiplanar, multisequence MRI departmental protocol Multiplanar, multisequence images of the thoracic spine were acquired. FINDINGS: There is approximate 50% compression deformity of T8 vertebral body with decreased signal o n the T1 and T2 images. There is minimal fragment extension of the body posteriorly into the spinal c anal with slight impingement on the anterior aspect of the thoracic spinal cord. There is slight depr ession of the superior endplates of T6 T5 T4 vertebra up to 15%. There is no paraspinal mass. The pos terior elements are intact. Disc spaces overall are fairly well-maintained. IMPRESSION: Multiple thoracic compression fractures and more severe at T8. This is probably osteoporotic type fra cture. I do not see bone destruction and signal loss on the T1 images to suggest metastatic disease. There is minimal posterior T8 body fragment impinging on the anterior aspect of the thoracic spinal c ord. This measures 3 mm. There is heterogeneity in the bone marrow of the thoracic spine probably rel ated to variable fatty marrow replacement. Tiny foci of metastatic disease however cannot be entirely excluded. Bone scan would be helpful for further evaluation if clinically indicated.
[2018-06-23] MEDS: MONTELUKAST 10 MG TAB PO SCH (21:20)
[2018-06-23] MEDS: ATORVASTATIN 20 MG TAB PO SCH (21:20)
[2018-06-23] MEDS: FUROSEMIDE 20 MG TAB PO SCH (21:22)
[2018-06-24] MEDS: HYDROcodone/APAP 7.5-325MG 1 EACH TAB PO PRN ×4 (02:34→20:21)
[2018-06-24] MEDS: FAMOTIDINE 20 MG TAB PO PRN ×2 (02:39→13:19)
[2018-06-24] MEDS: PANTOPRAZOLE 40 MG TABLET PO SCH (06:32)
[2018-06-24] MEDS: LEVOTHYROXINE 100 MCG TAB PO SCH (06:32)
[2018-06-24] MEDS: ALPRAZolam 0.5 MG TAB PO PRN ×2 (06:35→13:19)
[2018-06-24 06:36] LABS: Anisocytosis Slight; Basophils % (A) 0 %; Eosinophils # (A) 0.2 k/uL (0-0.7); Eosinophils % (A) 1 %; HCT 32.5 % (34.0-46.0); Hypochromasia Slight; Lymphocytes # (A) 2.2 k/uL (1.0-4.8); Lymphocytes % (A) 17 %; MCH 24.7 pg (25.0-35.0); MCHC 30.8 g/dL (31.0-37.0); MCV 80.3 fL (80.0-100.0); Microcytosis Slight; Monocytes # (A) 0.5 k/uL (0-1.0); Monocytes % (A) 4 %; Neutrophils # (A) 10.3 k/uL (1.3-7.7); Neutrophils % (A) 77 %; Platelet Count 436 k/uL (150-450); RBC 4.04 m/uL (3.80-5.40); RDW 19.1 % (11.5-15.5); WBC 13.3 k/uL (3.8-10.6)
[2018-06-24 06:55] LABS: Blood Urea Nitrogen 26 mg/dL (7-17); Calcium 9.5 mg/dL (8.4-10.2); Chloride 92 mmol/L (98-107); Glucose 81 mg/dL (74-99); Potassium 4.6 mmol/L (3.5-5.1); Sodium 137 mmol/L (137-145)
[2018-06-24 07:08] LABS: Anion Gap 8 mmol/L
[2018-06-24 07:12] LABS: Carbon Dioxide 37 mmol/L (22-30)
[2018-06-24] MEDS: ARIPiprazole 2 MG TAB PO SCH (08:26)
[2018-06-24] MEDS: ENOXAPARIN 40 MG/0.4 ML SYRINGE SQ SCH (08:26)
[2018-06-24] MEDS: DOCUSATE 100 MG CAP PO SCH ×2 (08:26→20:24)
[2018-06-24] MEDS: FUROSEMIDE 20 MG TAB PO SCH ×2 (08:27→20:23)
[2018-06-24] MEDS: FERROUS SULFATE 325 MG TAB PO SCH ×2 (08:27→20:24)
[2018-06-24] MEDS: METOPROLOL SUCCINATE (ER) 25 MG TAB.ER.24H PO SCH (08:27)
[2018-06-24] MEDS: predniSONE 20 MG TAB PO SCH (08:27)
[2018-06-24] MEDS: FAMOTIDINE 20 MG TAB PO SCH (08:27)
[2018-06-24] MEDS: SPIRONOLACTONE 25 MG TAB PO SCH ×2 (08:28→16:36)
[2018-06-24] MEDS: IPRATROPIUM-ALBUTEROL 3 ML NEB INHALATION SCH ×3 (08:49→20:01)
[2018-06-24] MEDS: SYMBICORT 160-4.5 MCG INHALER INHALATION SCH ×2 (08:49→20:01)
[2018-06-24] MEDS ORDERED: ERGOCALCIFEROL 50,000 UNIT CAP PO SCH (09:00)
--- NOTE | 2018-06-24 14:16 | P.PN ---
Subjective Progress Note Date: 06/24/18 This is a 63-year-old female with a known past medical history of obliterans bronchiolitis, Hodgkin's lymphoma status post chemo and radiation treatment in 1978, breast cancer with mastectomy 2004, kidney cancer December 2017 with removal of tumor. Also history of asthma, GERD, hyperlipidemia, hypertension, iron deficiency anemia, hypothyroidism and diastolic congestive heart failure. Patient presents to emergency room with complaints of shortness of breath that has worsened over the last 2 days. Patient reports that she is always having some shortness of breath. Over the last 2 days it is significantly worsened. She has had about a 10 pound weight gain less than 1 week. She has lower extremity edema. She is also noted some increase in swelling and redness of her face. She was diagnosed with the BOOP September 2017 and has had been on prednisone 30 mg daily since. Patient has noticed worsening shortness of breath with any activity. On admission white count was 17.1 hemoglobin 10.9. Troponins negative. EKG had shown sinus tachycardia with a heart rate of 106 and a left bundle branch block. Chest x-ray reports correlate for CHF with early interstitial pulmonary edema. Also noted a mild anterior wedging of a mid thoracic vertebral body appears new from 06/06/2018. Patient is complaining of upper back pain. CT of the chest shows no acute pulmonary embolism. Few scattered punctate lung nodules and small left pleural effusion. Initially patient wasn't be discharged home from the ER. However, she did not feel comfortable going home because this morning her breathing was so bad she felt that she might or pass out. Therefore patient will be admitted to the hospital. Pulmonary service has been consulted. They have placed her on IV Lasix. Patient denies any fever or chills. She reports having sweats. She denies any nausea or vomiting bowel movement changes or urinary symptoms. 06/20/2018 patient still having some shortness of breath. She had a episode this morning where she went to use the restroom and became very short of breath had to call nursing staff for help. Oxygen saturation was checked at that time it was 93%. Patient was given Xanax and reported that it helped with her breathing. She also was found to have a T8 compression fracture that has progressed on x-ray. This is possibly related to steroids. Pulmonary service has decreased prednisone to 20 mg daily. She remains on the IV Lasix for her congestive heart failure. Weight has decreased from 93 to 89.7 kg. Patient is complaining of constipation. On 06/21/2018 patient is currently sitting comfortably in bed. Does state when she gets up she is restroom that she still becomes very short of breath. Dr. Johnson has been consulted for T8 compression fracture. Awaiting consult. Potassium 3.2 replacement has been ordered. Pulmonology will continue IV diuretics for another 24 hours. Denies chest pain or shortness breath. Patient states she had a bowel movement this a.m. 06/22/2018 patient still complaining of back pain. Pain Medication does help. She is still having some shortness of breath. Cardiology is recommending IV Lasix for another 24 hours. Her weight did increase to 90.[address] Johnson is out of town. 06/23/2018 patient reporting that her back pain has worsened. Pain is radiating from her back along the right side. Patient has been seen by cardiology and cleared for discharge. Patient is waiting to be seen by orthopedics regards to her T8 fracture. Cardiology is placed her on oral Lasix. [place] will be increased to 7.5 every 6 hours as needed for pain on 06/24/2018 patient alert and oriented in no distress, reporting that her back pain is somewhat controlled with pain medications then recurs in 2-3 hours. Pain is radiating from her back along the both sides to the front. Patient is waiting to be seen by orthopedics regards to her T8 fracture. Cardiology is placed her on oral Lasix. [place] will be increased to 7.5 every 6 hours as needed for pain Objective - Vital Signs Vital signs: Vital Signs Temp 97.3 F L 06/24/18 07:00 Pulse 92 06/24/18 13:24 Resp 18 06/24/18 08:00 BP 104/58 06/24/18 07:00 Pulse Ox 99 06/24/18 07:00 Intake & Output 06/23/18 06/24/18 06/24/18 18:59 06:59 18:59 Intake Total 360 125 570 Output Total 1200 1200 Balance -840 -0885 570 Weight 91.2 kg Intake: Oral 360 125 570 Output: Urine 1200 1200 Other: Voiding Method Toilet # Voids 2 4 2 # Bowel Movements 1 - Exam Head normocephalic and atrumatic Neck supple, no JVD no goiter Lungs clear to auscultation bilaterally no wheezing or crackles Heart clear to auscultation no crackles noted Abdomen is soft nontender nondistended positive bowel sounds no hepatosplenomegaly Extremities no edema, no cyanosis or clubbing, no gross focal d Neuro alert and orientated to 3 no gross focal deficit - Labs CBC & Chem 7: 06/24/18 05:51 06/24/18 05:51 Labs: Abnormal Lab Results - Last 24 Hours (Table) 06/24/18 06/24/18 Range/Units 05:51 05:51 WBC 13.3 H (3.8-10.6) k/uL Hgb 10.0 L (11.4-16.0) gm/dL Hct 32.5 L (34.0-46.0) % MCH 24.7 L (25.0-35.0) pg MCHC 30.8 L (31.0-37.0) g/dL RDW 19.1 H (11.5-15.5) % Neutrophils # 10.3 H (1.3-7.7) k/uL Chloride 92 L (98-107) mmol/L Carbon Dioxide 37 H (22-30) mmol/L BUN 26 H (7-17) mg/dL Microbiology - Last 24 Hours (Table) 06/19/18 10:44 Blood Culture - Preliminary Blood No Growth after 120 hours Assessment and Plan Plan: 1. Shortness of breath: Possibly related to congestive heart failure exacerbation and bronchiolitis obliterans with organizing pneumonia. Patient has been cleared by cardiology and pulmonary services for discharge 2. Acute on chronic diastolic congestive heart failure exacerbation: BNP minimally elevated 996. Echo shows an EF of 50-55% mild aortic stenosis and mild pulmonary hypertension. Patient has had 10 pound weight gain and lower extremity edema. Cardiology discontinued IV lasix and started oral lasix 3. Leukocytosis: Likely related to the prednisone patient is on outpatient. White count is trending down 4. Anemia with known history of iron deficiency anemia: No reports of bleeding. Patient iron level still low at 37. Increase ferrous sulfate 325 mg twice a day. Hemoglobin increased to 11.2 5. History of bronchiolitis obliterans with organizing pneumonia: Currently on prednisone 30 mg daily. Pulmonary service decrease prednisone to 20 mg daily due to weight gain and back fracture 6. History of Hodgkin's lymphoma treated with chemo and radiation treatment in 1978 7. History of breast cancer with mastectomy 2004 8. Renal cancer status post partial right nephrectomy December 2017. Renal ultrasound from 06/15/2018 shows no suspicious findings 9. Hypothyroidism continue Synthroid 10. Essential hypertension: Patient's blood pressures are on the lower side. Cozaar held. pulmonary service discontinued the hydrochlorothiazide and changed Aldactone to 25 mg twice a day[address] Place parameters to hold her Aldactone for systolic blood pressure less than 115 11. History of persistent asthma: Continue nebulizer treatments and Pulmicort 12. T8 compression fracture that has progressed noted on thoracic spine x-ray. Consult physical therapy. Patient complaining of worsening back pain. Will increase the [place] to 7.5 every 6 hours as needed for pain. Awaiting orthopedic consult and their recommendations Patient has worked with physical therapy they're recommending home with home care Anticipate discharge possibly later today or tomorrow GI prophylaxis Pepcid and DVT prophylaxis Lovenox
[2018-06-24] MEDS: SERTRALINE 100 MG TAB PO SCH (16:36)
[2018-06-24] MEDS: MONTELUKAST 10 MG TAB PO SCH (20:24)
[2018-06-24] MEDS: ATORVASTATIN 20 MG TAB PO SCH (20:24)
[2018-06-25] MEDS: HYDROcodone/APAP 7.5-325MG 1 EACH TAB PO PRN ×4 (02:36→20:21)
[2018-06-25] MEDS: LEVOTHYROXINE 100 MCG TAB PO SCH (06:29)
[2018-06-25] MEDS: SYMBICORT 160-4.5 MCG INHALER INHALATION SCH ×2 (07:55→19:08)
[2018-06-25] MEDS: IPRATROPIUM-ALBUTEROL 3 ML NEB INHALATION SCH ×3 (07:56→19:08)
[2018-06-25] MEDS: PANTOPRAZOLE 40 MG TABLET PO SCH (08:02)
[2018-06-25] MEDS: ARIPiprazole 2 MG TAB PO SCH (08:02)
[2018-06-25] MEDS: DOCUSATE 100 MG CAP PO SCH ×2 (08:02→20:21)
[2018-06-25] MEDS: FAMOTIDINE 20 MG TAB PO SCH (08:03)
[2018-06-25] MEDS: FERROUS SULFATE 325 MG TAB PO SCH ×2 (08:03→20:21)
[2018-06-25] MEDS: predniSONE 20 MG TAB PO SCH (08:03)
[2018-06-25] MEDS: SPIRONOLACTONE 25 MG TAB PO SCH ×2 (08:03→16:58)
[2018-06-25] MEDS: ENOXAPARIN 40 MG/0.4 ML SYRINGE SQ SCH (08:03)
[2018-06-25] MEDS: FUROSEMIDE 20 MG TAB PO SCH ×2 (08:17→20:21)
[2018-06-25] MEDS: METOPROLOL SUCCINATE (ER) 25 MG TAB.ER.24H PO SCH (08:17)
[2018-06-25 09:24] LABS: Anisocytosis Slight; Basophils # (A) 0.1 k/uL (0-0.2); Basophils % (A) 1 %; Eosinophils # (A) 0.2 k/uL (0-0.7); Eosinophils % (A) 1 %; HCT 36.7 % (34.0-46.0); HGB 11.8 gm/dL (11.4-16.0); Hypochromasia Moderate; Lymphocytes # (A) 3.1 k/uL (1.0-4.8); Lymphocytes % (A) 19 %; MCH 26.2 pg (25.0-35.0); MCHC 32.2 g/dL (31.0-37.0); MCV 81.4 fL (80.0-100.0); Microcytosis Slight; Monocytes # (A) 0.9 k/uL (0-1.0); Monocytes % (A) 5 %; Neutrophils # (A) 11.8 k/uL (1.3-7.7); Neutrophils % (A) 73 %; Platelet Count 450 k/uL (150-450); RBC 4.51 m/uL (3.80-5.40); RDW 19.1 % (11.5-15.5); WBC 16.2 k/uL (3.8-10.6)
[2018-06-25 10:05] LABS: Anion Gap 9 mmol/L; Calcium 9.5 mg/dL (8.4-10.2); Carbon Dioxide 34 mmol/L (22-30); Chloride 95 mmol/L (98-107); Glucose 109 mg/dL (74-99); Sodium 138 mmol/L (137-145)
[2018-06-25 10:12] LABS: Blood Urea Nitrogen 28 mg/dL (7-17); Potassium 4.1 mmol/L (3.5-5.1)
[2018-06-25 10:23] LABS: Crenated RBC Present; Ovalocytes Present; RBC Fragments Present
[2018-06-25] MEDS: ALPRAZolam 0.5 MG TAB PO PRN (11:43)
--- NOTE | 2018-06-25 12:33 | P.PN ---
Subjective Progress Note Date: 06/25/18 This is a 63-year-old female with a known past medical history of obliterans bronchiolitis, Hodgkin's lymphoma status post chemo and radiation treatment in 1978, breast cancer with mastectomy 2004, kidney cancer December 2017 with removal of tumor. Also history of asthma, GERD, hyperlipidemia, hypertension, iron deficiency anemia, hypothyroidism and diastolic congestive heart failure. Patient presents to emergency room with complaints of shortness of breath that has worsened over the last 2 days. Patient reports that she is always having some shortness of breath. Over the last 2 days it is significantly worsened. She has had about a 10 pound weight gain less than 1 week. She has lower extremity edema. She is also noted some increase in swelling and redness of her face. She was diagnosed with the BOOP September 2017 and has had been on prednisone 30 mg daily since. Patient has noticed worsening shortness of breath with any activity. On admission white count was 17.1 hemoglobin 10.9. Troponins negative. EKG had shown sinus tachycardia with a heart rate of 106 and a left bundle branch block. Chest x-ray reports correlate for CHF with early interstitial pulmonary edema. Also noted a mild anterior wedging of a mid thoracic vertebral body appears new from 06/06/2018. Patient is complaining of upper back pain. CT of the chest shows no acute pulmonary embolism. Few scattered punctate lung nodules and small left pleural effusion. Initially patient wasn't be discharged home from the ER. However, she did not feel comfortable going home because this morning her breathing was so bad she felt that she might or pass out. Therefore patient will be admitted to the hospital. Pulmonary service has been consulted. They have placed her on IV Lasix. Patient denies any fever or chills. She reports having sweats. She denies any nausea or vomiting bowel movement changes or urinary symptoms. 06/20/2018 patient still having some shortness of breath. She had a episode this morning where she went to use the restroom and became very short of breath had to call nursing staff for help. Oxygen saturation was checked at that time it was 93%. Patient was given Xanax and reported that it helped with her breathing. She also was found to have a T8 compression fracture that has progressed on x-ray. This is possibly related to steroids. Pulmonary service has decreased prednisone to 20 mg daily. She remains on the IV Lasix for her congestive heart failure. Weight has decreased from 93 to 89.7 kg. Patient is complaining of constipation. On 06/21/2018 patient is currently sitting comfortably in bed. Does state when she gets up she is restroom that she still becomes very short of breath. Dr. Johnson has been consulted for T8 compression fracture. Awaiting consult. Potassium 3.2 replacement has been ordered. Pulmonology will continue IV diuretics for another 24 hours. Denies chest pain or shortness breath. Patient states she had a bowel movement this a.m. 06/22/2018 patient still complaining of back pain. Pain Medication does help. She is still having some shortness of breath. Cardiology is recommending IV Lasix for another 24 hours. Her weight did increase to 90.[address] Johnson is out of town. 06/23/2018 patient reporting that her back pain has worsened. Pain is radiating from her back along the right side. Patient has been seen by cardiology and cleared for discharge. Patient is waiting to be seen by orthopedics regards to her T8 fracture. Cardiology is placed her on oral Lasix. [place] will be increased to 7.5 every 6 hours as needed for pain on 06/24/2018 patient alert and oriented in no distress, reporting that her back pain is somewhat controlled with pain medications then recurs in 2-3 hours. Pain is radiating from her back along the both sides to the front. Patient is waiting to be seen by orthopedics regards to her T8 fracture. Cardiology is placed her on oral Lasix. [place] will be increased to 7.5 every 6 hours as needed for pain 06/25/2018 patient is alert and oriented 3 in no apparent distress pain in the back is slightly better controlled shortness of breath is improving, she denies any other complaints at this time, I spoke with [facility] orthopedic physician business office assistant and he indicated that Dr Kwon will return to work from vacation on Tuesday, patient will be evaluated by him on Tuesday. Objective - Vital Signs Vital signs: Vital Signs Temp 97.6 F 06/25/18 05:00 Pulse 100 06/25/18 08:06 Resp 16 06/25/18 05:00 BP 113/66 06/25/18 05:00 Pulse Ox 98 06/25/18 05:00 Intake & Output 06/24/18 06/25/18 06/25/18 18:59 06:59 18:59 Intake Total 570 Balance 570 Weight 91.2 kg Intake: Oral 570 Other: Voiding Method Toilet Toilet # Voids 2 1 # Bowel Movements 1 - Exam Head normocephalic and atrumatic Neck supple, no JVD no goiter Lungs clear to auscultation bilaterally no wheezing or crackles Heart clear to auscultation no crackles noted Abdomen is soft nontender nondistended positive bowel sounds no hepatosplenomegaly Extremities no edema, no cyanosis or clubbing, no gross focal d Neuro alert and orientated to 3 no gross focal deficit - Labs CBC & Chem 7: 06/25/18 08:37 06/25/18 08:37 Labs: Abnormal Lab Results - Last 24 Hours (Table) 06/25/18 06/25/18 Range/Units 08:37 08:37 WBC 16.2 H (3.8-10.6) k/uL RDW 19.1 H (11.5-15.5) % Neutrophils # 11.8 H (1.3-7.7) k/uL Chloride 95 L (98-107) mmol/L Carbon Dioxide 34 H (22-30) mmol/L BUN 28 H (7-17) mg/dL Glucose 109 H (74-99) mg/dL Microbiology - Last 24 Hours (Table) 06/19/18 10:44 Blood Culture - Preliminary Blood No Growth after 120 hours Assessment and Plan Plan: 1. Shortness of breath: Possibly related to congestive heart failure exacerbation and bronchiolitis obliterans with organizing pneumonia. Patient has been cleared by cardiology and pulmonary services for discharge 2. Acute on chronic diastolic congestive heart failure exacerbation: BNP minimally elevated 996. Echo shows an EF of 50-55% mild aortic stenosis and mild pulmonary hypertension. Patient has had 10 pound weight gain and lower extremity edema. Cardiology discontinued IV lasix and started oral lasix 3. Leukocytosis: Likely related to the prednisone patient is on outpatient. White count is trending down 4. Anemia with known history of iron deficiency anemia: No reports of bleeding. Patient iron level still low at 37. Increase ferrous sulfate 325 mg twice a day. Hemoglobin increased to 11.2 5. History of bronchiolitis obliterans with organizing pneumonia: Currently on prednisone 30 mg daily. Pulmonary service decrease prednisone to 20 mg daily due to weight gain and back fracture 6. History of Hodgkin's lymphoma treated with chemo and radiation treatment in 1978 7. History of breast cancer with mastectomy 2004 8. Renal cancer status post partial right nephrectomy December 2017. Renal ultrasound from 06/15/2018 shows no suspicious findings 9. Hypothyroidism continue Synthroid 10. Essential hypertension: Patient's blood pressures are on the lower side. Cozaar held. pulmonary service discontinued the hydrochlorothiazide and changed Aldactone to 25 [address] parameters to hold her Aldactone for systolic blood pressure less than 115 11. History of persistent asthma: Continue nebulizer treatments and Pulmicort 12. T8 compression fracture that has progressed noted on thoracic spine x-ray. Consult physical therapy. Patient complaining of worsening back pain. Will increase the [place] to 7.5 every 6 hours as needed for pain. Awaiting orthopedic consult and their recommendations Patient has worked with physical therapy they're recommending home with home care Anticipate discharge possibly later today or tomorrow GI prophylaxis Pepcid and DVT prophylaxis Lovenox
[2018-06-25] MEDS: SERTRALINE 100 MG TAB PO SCH (16:58)
[2018-06-25] MEDS: ATORVASTATIN 20 MG TAB PO SCH (20:21)
[2018-06-25] MEDS: MONTELUKAST 10 MG TAB PO SCH (20:21)
[2018-06-26] MEDS: HYDROcodone/APAP 7.5-325MG 1 EACH TAB PO PRN ×4 (05:36→21:21)
[2018-06-26] MEDS: ALPRAZolam 0.5 MG TAB PO PRN ×3 (05:40→21:21)
[2018-06-26] MEDS: LEVOTHYROXINE 100 MCG TAB PO SCH (06:05)
[2018-06-26] MEDS: SYMBICORT 160-4.5 MCG INHALER INHALATION SCH ×2 (07:03→19:45)
[2018-06-26] MEDS: IPRATROPIUM-ALBUTEROL 3 ML NEB INHALATION SCH ×3 (07:03→19:45)
[2018-06-26] MEDS: PANTOPRAZOLE 40 MG TABLET PO SCH (08:14)
[2018-06-26] MEDS: SPIRONOLACTONE 25 MG TAB PO SCH ×2 (08:14→18:09)
[2018-06-26] MEDS: predniSONE 20 MG TAB PO SCH (08:15)
[2018-06-26] MEDS: ENOXAPARIN 40 MG/0.4 ML SYRINGE SQ SCH (08:15)
[2018-06-26] MEDS: DOCUSATE 100 MG CAP PO SCH ×2 (08:15→21:20)
[2018-06-26] MEDS: ARIPiprazole 2 MG TAB PO SCH (08:16)
[2018-06-26] MEDS: FUROSEMIDE 20 MG TAB PO SCH ×2 (08:16→21:20)
[2018-06-26] MEDS: FERROUS SULFATE 325 MG TAB PO SCH ×2 (08:16→21:20)
[2018-06-26] MEDS: METOPROLOL SUCCINATE (ER) 25 MG TAB.ER.24H PO SCH (08:17)
[2018-06-26] MEDS: FAMOTIDINE 20 MG TAB PO SCH (08:17)
[2018-06-26 08:46] LABS: Anisocytosis Slight; Basophils # (A) 0.1 k/uL (0-0.2); Basophils % (A) 1 %; Eosinophils # (A) 0.2 k/uL (0-0.7); Eosinophils % (A) 1 %; HCT 36.5 % (34.0-46.0); HGB 11.2 gm/dL (11.4-16.0); Hypochromasia Moderate; Lymphocytes # (A) 3.5 k/uL (1.0-4.8); Lymphocytes % (A) 21 %; MCH 24.9 pg (25.0-35.0); MCHC 30.6 g/dL (31.0-37.0); MCV 81.4 fL (80.0-100.0); Mean Platelet Volume 6.1; Microcytosis Slight; Monocytes # (A) 0.6 k/uL (0-1.0); Monocytes % (A) 3 %; Neutrophils # (A) 12.3 k/uL (1.3-7.7); Neutrophils % (A) 73 %; Platelet Count 443 k/uL (150-450); RBC 4.48 m/uL (3.80-5.40); WBC 16.9 k/uL (3.8-10.6)
[2018-06-26 08:55] LABS: Calcium 9.5 mg/dL (8.4-10.2); Potassium 3.6 mmol/L (3.5-5.1)
[2018-06-26 10:42] VITALS: BMI 36.8
[2018-06-26] MEDS ORDERED: ACYCLOVIR TOPICAL PRN (13:24)
--- NOTE | 2018-06-26 13:48 | P.PN ---
Subjective Progress Note Date: 06/26/18 This is a 63-year-old female with a known past medical history of obliterans bronchiolitis, Hodgkin's lymphoma status post chemo and radiation treatment in 1978, breast cancer with mastectomy 2004, kidney cancer December 2017 with removal of tumor. Also history of asthma, GERD, hyperlipidemia, hypertension, iron deficiency anemia, hypothyroidism and diastolic congestive heart failure. Patient presents to emergency room with complaints of shortness of breath that has worsened over the last 2 days. Patient reports that she is always having some shortness of breath. Over the last 2 days it is significantly worsened. She has had about a 10 pound weight gain less than 1 week. She has lower extremity edema. She is also noted some increase in swelling and redness of her face. She was diagnosed with the BOOP September 2017 and has had been on prednisone 30 mg daily since. Patient has noticed worsening shortness of breath with any activity. On admission white count was 17.1 hemoglobin 10.9. Troponins negative. EKG had shown sinus tachycardia with a heart rate of 106 and a left bundle branch block. Chest x-ray reports correlate for CHF with early interstitial pulmonary edema. Also noted a mild anterior wedging of a mid thoracic vertebral body appears new from 06/06/2018. Patient is complaining of upper back pain. CT of the chest shows no acute pulmonary embolism. Few scattered punctate lung nodules and small left pleural effusion. Initially patient wasn't be discharged home from the ER. However, she did not feel comfortable going home because this morning her breathing was so bad she felt that she might or pass out. Therefore patient will be admitted to the hospital. Pulmonary service has been consulted. They have placed her on IV Lasix. Patient denies any fever or chills. She reports having sweats. She denies any nausea or vomiting bowel movement changes or urinary symptoms. 06/20/2018 patient still having some shortness of breath. She had a episode this morning where she went to use the restroom and became very short of breath had to call nursing staff for help. Oxygen saturation was checked at that time it was 93%. Patient was given Xanax and reported that it helped with her breathing. She also was found to have a T8 compression fracture that has progressed on x-ray. This is possibly related to steroids. Pulmonary service has decreased prednisone to 20 mg daily. She remains on the IV Lasix for her congestive heart failure. Weight has decreased from 93 to 89.7 kg. Patient is complaining of constipation. On 06/21/2018 patient is currently sitting comfortably in bed. Does state when she gets up she is restroom that she still becomes very short of breath. Dr. Johnson has been consulted for T8 compression fracture. Awaiting consult. Potassium 3.2 replacement has been ordered. Pulmonology will continue IV diuretics for another 24 hours. Denies chest pain or shortness breath. Patient states she had a bowel movement this a.m. 06/22/2018 patient still complaining of back pain. Pain Medication does help. She is still having some shortness of breath. Cardiology is recommending IV Lasix for another 24 hours. Her weight did increase to 90.[address] Johnson is out of town. 06/23/2018 patient reporting that her back pain has worsened. Pain is radiating from her back along the right side. Patient has been seen by cardiology and cleared for discharge. Patient is waiting to be seen by orthopedics regards to her T8 fracture. Cardiology is placed her on oral Lasix. Trenton will be increased to 7.5 every 6 hours as needed for pain on 06/24/2018 patient alert and oriented in no distress, reporting that her back pain is somewhat controlled with pain medications then recurs in 2-3 hours. Pain is radiating from her back along the both sides to the front. Patient is waiting to be seen by orthopedics regards to her T8 fracture. Cardiology is placed her on oral Lasix. Trenton will be increased to 7.5 every 6 hours as needed for pain 06/25/2018 patient is alert and oriented 3 in no apparent distress pain in the back is slightly better controlled shortness of breath is improving, she denies any other complaints at this time, I spoke with [facility] orthopedic physician events and promotions assistant and he indicated that Dr Johnson will return to work from vacation on Tuesday, patient will be evaluated by him on Tuesday. 06/26/2018 patient still complaining of back pain. Pain medication is helping. Awaiting patient to be evaluated by Dr. Johnson on Tuesday for back brace. She still having some shortness of breath and anxiety. Awaiting Dr. celeste in to review MRI of the thoracic spine findings. White count 16.9 likely related to prednisone. Patient complaining of herpes rash breaking out on her left buttocks. Patient reports she does get rashes like this when she is anxious or sick. She usually takes Zovirax and acyclovir at home. She is complaining also of some oral thrush nystatin swish and swallow ordered. Objective - Vital Signs Vital signs: Vital Signs Temp 98 F 06/26/18 05:57 Pulse 100 06/26/18 13:18 Resp 16 06/26/18 05:57 BP 106/59 06/26/18 05:57 Pulse Ox 98 06/26/18 07:05 Intake & Output 06/25/18 06/26/18 06/26/18 18:59 06:59 18:59 Intake Total 780 Balance 780 Weight 91.2 kg 91.2 kg Intake: Oral 780 Other: Voiding Method Toilet Toilet Toilet # Voids 3 1 # Bowel Movements 1 - Exam Head normocephalic Neck supple Lungs clear to auscultation bilaterally no wheezing or crackles Heart clear to auscultation no crackles noted Abdomen is soft nontender nondistended positive bowel sounds no hepatosplenomegaly Extremities no edema Neuro alert and orientated to 3 Skin: Herpes type rash top of the left buttocks - Labs CBC & Chem 7: 06/26/18 08:13 06/26/18 08:13 Labs: Abnormal Lab Results - Last 24 Hours (Table) 06/26/18 06/26/18 Range/Units 08:13 08:13 WBC 16.9 H (3.8-10.6) k/uL Hgb 11.2 L (11.4-16.0) gm/dL MCH 24.9 L (25.0-35.0) pg MCHC 30.6 L (31.0-37.0) g/dL RDW 19.0 H (11.5-15.5) % Neutrophils # 12.3 H (1.3-7.7) k/uL Chloride 94 L (98-107) mmol/L Carbon Dioxide 36 H (22-30) mmol/L BUN 28 H (7-17) mg/dL Glucose 118 H (74-99) mg/dL Microbiology - Last 24 Hours (Table) 06/19/18 10:44 Blood Culture - Final Blood No Growth after 144 hours Assessment and Plan Assessment: 1. Shortness of breath: Possibly related to congestive heart failure exacerbation and bronchiolitis obliterans with organizing pneumonia. Patient has been cleared by cardiology and pulmonary services for discharge 2. Acute on chronic diastolic congestive heart failure exacerbation: BNP minimally elevated 996. Echo shows an EF of 50-55% mild aortic stenosis and mild pulmonary hypertension. Patient has had 10 pound weight gain and lower extremity edema. Cardiology discontinued IV lasix and started oral lasix 3. Leukocytosis: Likely related to the prednisone patient is on outpatient. White count is trending down 4. Anemia with known history of iron deficiency anemia: No reports of bleeding. Patient iron level still low at 37. Increase ferrous sulfate 325 mg twice a day. 5. History of bronchiolitis obliterans with organizing pneumonia: Currently on prednisone 30 mg daily. Pulmonary service decrease prednisone to 20 mg daily due to weight gain and back fracture 6. History of Hodgkin's lymphoma treated with chemo and radiation treatment in 1978 7. History of breast cancer with mastectomy 2004 8. Renal cancer status post partial right nephrectomy December 2017. Renal ultrasound from 06/15/2018 shows no suspicious findings 9. Hypothyroidism continue Synthroid 10. Essential hypertension: Patient's blood pressures are on the lower side. Cozaar held. pulmonary service discontinued the hydrochlorothiazide and changed Aldactone to 25 mg twice a day. Place parameters to hold her Aldactone for systolic blood pressure less than 115 11. History of persistent asthma: Continue nebulizer treatments and Pulmicort 12. T8 compression fracture that has progressed noted on thoracic spine x-ray. Consult physical therapy. Patient complaining of worsening back pain. Will increase the Trenton to 7.5 every 6 hours as needed for pain. MRI showing multiple thoracic compression fractures and more severe at T8. Probable osteoporotic type fracture. MRI also mentions tiny foci of metastatic disease however cannot be entirely excluded. We will await further recommendations per Dr. Johnson 13. Osteoporosis 14. Herpes simplex type I rash left buttocks resume patient's home Zovirax and acyclovir GI prophylaxis Pepcid and DVT prophylaxis Lovenox I performed an examination of the patient and discussed their management with the physician E Commerce Director. I have reviewed the Physician E Commerce Director's notes and agree with the documented findings and plan of care
[2018-06-26] MEDS: NYSTATIN 100,000 UNIT/ML SUSP 500,000 UNIT/5 ML CUP PO SCH ×3 (14:32→21:21)
[2018-06-26] MEDS: SERTRALINE 100 MG TAB PO SCH (18:09)
[2018-06-26] MEDS: MONTELUKAST 10 MG TAB PO SCH (21:20)
[2018-06-26] MEDS: ATORVASTATIN 20 MG TAB PO SCH (21:20)
[2018-06-27 05:35] VITALS: BP 103/52; RESP 16; TEMP 98
[2018-06-27] MEDS: ALPRAZolam 0.5 MG TAB PO PRN ×2 (06:17→17:39)
[2018-06-27] MEDS: LEVOTHYROXINE 100 MCG TAB PO SCH (06:17)
[2018-06-27] MEDS: HYDROcodone/APAP 7.5-325MG 1 EACH TAB PO PRN ×2 (06:17→12:39)
[2018-06-27] MEDS: SYMBICORT 160-4.5 MCG INHALER INHALATION SCH (07:04)
[2018-06-27] MEDS: IPRATROPIUM-ALBUTEROL 3 ML NEB INHALATION SCH ×2 (07:04→13:25)
[2018-06-27 08:03] LABS: Anisocytosis Slight; Basophils # (A) 0.1 k/uL (0-0.2); Basophils % (A) 0 %; Eosinophils # (A) 0.2 k/uL (0-0.7); Eosinophils % (A) 1 %; HCT 35.3 % (34.0-46.0); HGB 11.1 gm/dL (11.4-16.0); Hypochromasia Slight; Lymphocytes # (A) 3.9 k/uL (1.0-4.8); Lymphocytes % (A) 21 %; MCH 24.9 pg (25.0-35.0); MCHC 31.4 g/dL (31.0-37.0); MCV 79.4 fL (80.0-100.0); Mean Platelet Volume 6.7; Microcytosis Slight; Monocytes # (A) 0.9 k/uL (0-1.0); Monocytes % (A) 5 %; Neutrophils # (A) 13.5 k/uL (1.3-7.7); Neutrophils % (A) 72 %; Platelet Count 474 k/uL (150-450); RBC 4.45 m/uL (3.80-5.40); WBC 18.7 k/uL (3.8-10.6)
[2018-06-27 08:36] LABS: Calcium 9.6 mg/dL (8.4-10.2); Potassium 4.2 mmol/L (3.5-5.1)
[2018-06-27] MEDS ORDERED: ACYCLOVIR 200 MG CAP PO SCH (09:00)
--- NOTE | 2018-06-27 09:00 | P.CNOR ---
History of Present Illness - [facility] Consult date: 06/27/18 Requesting physician: Michelle Naqvi Consult reason: fracture (T8 compression fracture 40 with thoracic pain and radiculopathy) History of present illness: Patient is very pleasant 63-year-old female who is seen today at bedside for further evaluation for thoracic back pain with known T8 compression fracture deformity. Patient initially presented to the emergency department for increased shortness of breath. She is known to have been on high-dose steroids for biopsy-proven bronchiolitis obliterans organizing pneumonia since September 2017. She states she started to experience significant thoracic back pain with radicular pain radiating over the anterior chest on 06/17/2018 without injury. She continued to monitor her symptoms and they continued to worsen. She states that have not improved since her admittance to the hospital. She has had significant workup in hospital by medicine, pulmonology, and cardiology. She seems to be improving since her admission in terms of her breathing. She does continue to have thoracic back pain. She has a significant medical history which includes treatment for Hodgkin's lymphoma 1978, rest cancer with mastectomy in 2004, and kidney cancer with removal of tumor in 2017. Patient states he also previously underwent a latissimus dorsi flap and lung biopsy. She currently denies any specific lower extremity weakness or radiculopathy bilaterally. She is able to move her legs independently without significant difficulty. She has not had further workup for her thoracic spine previously. She states she was known previously had a herniated disc lumbar spine. Patient has been discussed in detail with Dr. Naqvi. Patient may plan for discharge home once appropriate bracing has been ordered, delivered, and fitted appropriately. Past Medical History Past Medical History: Asthma, Cancer, Heart Failure, GERD/Reflux, Hyperlipidemia , Hypertension, Sleep Apnea/CPAP/BIPAP, Thyroid Disorder Additional Past Medical History / Comment(s): Hodgkins Lymphoma status post chemo and radiation 1978; Breast CA-status post mastectomy(sx only),home 02 pt not sure how many liters. (boop)- bronchiolitis obliterans organizing pne, rt kidney ca removed, had a pne vaccine less than 5 years ago not sure of date.commercial insurance underwriter unable to verify date at time of this admit. History of Any Multi-Drug Resistant Organisms: None Reported Past Surgical History: Adenoidectomy, Breast Surgery, Section, Hysterectomy, Orthopedic Surgery, Tonsillectomy Additional Past Surgical History / Comment(s): Spleenectomy, Lapraotomy. Colonoscopy, EGD, Foot surgery, breast reconstruction, lung bx, rt kidney cancer removed Past Anesthesia/Blood Transfusion Reactions: No Reported Reaction Smoking Status: Former smoker - Past Family History Mother Family Medical History: Osteoarthritis (OA) Additional Family Medical History / Comment(s): glaucoma Brother(s) Additional Family Medical History / Comment(s): MS Father Family Medical History: Myocardial Infarction ([place]) Additional Family Medical History / Comment(s): age 70 -mi Medications and Allergies Home Medications Medication Instructions Recorded Confirmed Type Budesonide-Formot 160-4.5 Mcg 2 puff INHALATION RT-BID 10/05/16 06/19/18 History [Symbicort 160-4.5 Mcg Inhaler] Levothyroxine Sodium [Synthroid] 100 mcg PO DAILY 10/05/16 06/19/18 History Losartan [Cozaar] 25 mg PO DAILY 10/05/16 06/19/18 History Metoprolol Succinate (ER) [Toprol 25 mg PO DAILY 10/05/16 06/19/18 History XL] Montelukast [Singulair] 10 mg PO HS 10/05/16 06/19/18 History Sertraline [Zoloft] 200 mg PO AC-SUPPER 10/05/16 06/19/18 History Simvastatin [Zocor] 40 mg PO HS 10/05/16 06/19/18 History ARIPiprazole [Abilify] 2 mg PO DAILY 04/06/17 06/19/18 History Albuterol Sulfate [Proair Hfa] 2 puff INHALATION RT-Q6H PRN 04/06/17 06/19/18 History Potassium Chloride ER [K-Dur 10] 10 meq PO DAILY #30 tab 04/08/17 06/19/18 Rx Acyclovir 400 mg PO DAILY PRN 05/13/17 06/19/18 History Acyclovir [Zovirax] 1 applic TOPICAL 5XD PRN 05/13/17 06/19/18 History Cetirizine HCl [Zyrtec] 10 mg PO HS PRN 05/13/17 06/19/18 History Ranitidine HCl [Zantac] 150 mg PO HS PRN 05/13/17 06/19/18 History Spironolactone-Hctz 25-25Mg 1 tab PO DAILY 05/13/17 06/19/18 History [Aldactazide 25-25 MG] predniSONE 30 mg PO DAILY 10/28/17 06/19/18 History ALPRAZolam [Xanax] 0.5 mg PO TID PRN 06/19/18 06/19/18 History Ergocalciferol [Vitamin D2] 50,000 unit PO SA 06/19/18 06/19/18 History Ferrous Sulfate [Feosol] 325 mg PO DAILY 06/19/18 06/19/18 History Furosemide [Lasix] 40 mg PO DAILY 06/19/18 06/19/18 History Omeprazole 40 mg PO BID 06/19/18 06/19/18 History Allergies Allergy/AdvReac Type Severity Reaction Status Date / Time No Known Allergies Allergy Verified 06/19/18 11:02 Physical Examination Physical exam: Patient is awake, alert, and oriented 3 Vital signs stable Good chest excursion with deep inspiration and expiration Abdomen soft nontender Examination of thoracolumbar spine reveals skin is intact with no abrasions, lacerations, or bruises; no erythema, purulence or signs of infection Pain with palpation along the midline and to the right of the thoracic spine at approximately T8 Evidence of a well-healed incision over the left lateral thoracic spine from previous latissimus dorsi flap Evidence of a well-healed incision over the left lateral thoracic spine from previous biopsy Dorsiflexion, plantarflexion, and extensor hallucis longus positive sustained bilaterally Lower extremity strength 5/5 bilaterally Patellar reflex 2+ bilaterally and Achilles reflexes 0+ bilaterally No lower extremity hyperreflexia bilaterally Straight leg test negative bilateral lower extremities Negative Lasegue's test bilaterally No signs or symptoms of DVT; no calf pain No pain with internal and external rotation of the hips bilaterally Neurovascularly intact Results Pertinent studies: X-rays thoracic spine taken on 06/19/2018: T8 compression fracture deformity with approximately 50% height loss that his progress as compared to previous imaging taken on 06/06/2018; osteopenia; clips from previous surgical intervention MRI of the thoracic spine taken on 06/23/2018: Evidence of T compression fracture deformity with approximately 50% height loss with 3 mm retropulsion that is most likely osteoporotic with no evidence of bone destruction; no evidence of T1 weighted images to suggest metastatic disease; multiple mild compression fracture deformities of the superior endplate of T4 and T6 without significant overall height loss - Labs Labs: Abnormal Lab Results - Last 24 Hours (Table) 06/26/18 06/27/18 06/27/18 Range/Units 08:13 07:29 07:29 WBC 18.7 H (3.8-10.6) k/uL Hgb 11.1 L (11.4-16.0) gm/dL MCV 79.4 L (80.0-100.0) fL MCH 24.9 L (25.0-35.0) pg RDW 19.0 H (11.5-15.5) % Plt Count 474 H (150-450) k/uL Neutrophils # 13.5 H (1.3-7.7) k/uL Chloride 94 L 95 L (98-107) mmol/L Carbon Dioxide 36 H 34 H (22-30) mmol/L BUN 28 H 32 H (7-17) mg/dL Glucose 118 H (74-99) mg/dL H & H 06/19/18 06/20/18 06/21/18 Range/Units 10:44 06:10 06:41 Hgb 10.9 L 11.2 L 9.6 L D (11.4-16.0) gm/dL Hct 34.1 35.2 30.9 L (34.0-46.0) % 06/22/18 06/23/18 06/24/18 Range/Units 05:28 05:10 05:51 Hgb 9.9 L 9.9 L 10.0 L (11.4-16.0) gm/dL Hct 32.3 L 32.6 L 32.5 L (34.0-46.0) % 06/25/18 06/26/18 06/27/18 Range/Units 08:37 08:13 07:29 Hgb 11.8 11.2 L 11.1 L (11.4-16.0) gm/dL Hct 36.7 36.5 35.3 (34.0-46.0) % Coagulation 06/19/18 Range/Units 10:44 INR 0.9 (<1.2) Result Diagrams: 06/27/18 07:29 06/27/18 07:29 Assessment and Plan Assessment: Assessment: T8 compression fracture deformity at approximately 50% height loss and 3 mm retropulsion Thoracic back pain Thoracic radiculopathy Thoracic osteopenia Biopsy-proven bronchiolitis obliterans organizing pneumonia History of prolonged long-term high-dose steroid use Shortness of breath and difficulty breathing on admission which is resolving (1) Wedge compression fracture of T8 vertebra Current Visit: Yes Status: Acute Code(s): S22.060A - WEDGE COMPRESSION FRACTURE OF T7-T8 VERTEBRA, INIT SNOMED Code(s): 661914302 (2) Thoracic back pain Current Visit: Yes Status: Acute Code(s): M54.6 - PAIN IN THORACIC SPINE SNOMED Code(s): 476625518 (3) Thoracic radiculopathy Current Visit: Yes Status: Acute Code(s): M54.14 - RADICULOPATHY, THORACIC REGION SNOMED Code(s): 89748920 (4) Osteopenia Current Visit: Yes Status: Acute Code(s): M85.80 - OT DISRD OF BONE DENSITY AND STRUCTURE, UNSPECIFIED SITE SNOMED Code(s): 928293326 (5) History of recent steroid use Current Visit: Yes Status: Acute Code(s): Z92.241 - PERSONAL HISTORY OF SYSTEMIC STEROID THERAPY SNOMED Code(s): 687207440 (6) BOOP (bronchiolitis obliterans with organizing pneumonia) Current Visit: Yes Status: Acute Code(s): J84.89 - OTHER SPECIFIED INTERSTITIAL PULMONARY DISEASES SNOMED Code(s): 796364194 Plan: Plan: 1. After further evaluation the patient, reviewing of imaging, and further discussion the patient, we'll currently plan to continue with conservative treatment in regards to her thoracic spine. She does have evidence of T8 compression fracture deformity with approximately 50% height loss that has worsened as compared to previous study taken on 06/06/2018. She also has some corresponding radicular pain radiating around the ribs to the anterior chest. She is not currently experiencing any significant lower extremity radiculopathy or weakness bilaterally. At this time, we will plan to obtain a brace. Prescription has been written for a Sporomed TLSO brace. Once this brace is delivered and fitted properly, patient should continue to wear this brace while sitting upright at greater than 45, during ambulation, during increased activities, and while working with physical therapy. Brace does not have to be worn while lying in bed or while bathing. Once her brace is delivered and fitted properly, she is clear for discharge from an orthopedic spine standpoint. Following discharge, we'll plan to have her follow-up in approximately 2-3 weeks in the outpatient setting for further evaluation. If her symptoms are not improving at that time and/or her fracture is worsening, we 'll discuss further treatment options including the possibility of kyphoplasty at T8. 2. Patient will continue to be seen by medicine and pulmonology 3. Following discharge, patient may follow up with Perico Domingo PA-C or Dr. Giuseppe Johnson at [facility] in approximately 2-3 weeks for further evaluation 4. Patient will be discussed in detail with Dr. Giuseppe Johnson Time with Patient: Less than 30
[2018-06-27] MEDS: NYSTATIN 100,000 UNIT/ML SUSP 500,000 UNIT/5 ML CUP PO SCH ×3 (09:27→17:03)
[2018-06-27] MEDS: ENOXAPARIN 40 MG/0.4 ML SYRINGE SQ SCH (09:27)
[2018-06-27] MEDS: FERROUS SULFATE 325 MG TAB PO SCH (09:28)
[2018-06-27] MEDS: PANTOPRAZOLE 40 MG TABLET PO SCH (09:29)
[2018-06-27] MEDS: predniSONE 20 MG TAB PO SCH (09:29)
[2018-06-27] MEDS: METOPROLOL SUCCINATE (ER) 25 MG TAB.ER.24H PO SCH (09:29)
[2018-06-27] MEDS: FAMOTIDINE 20 MG TAB PO SCH (09:29)
[2018-06-27] MEDS: ARIPiprazole 2 MG TAB PO SCH (09:30)
[2018-06-27] MEDS: FUROSEMIDE 20 MG TAB PO SCH (09:30)
[2018-06-27] MEDS: DOCUSATE 100 MG CAP PO SCH (09:30)
[2018-06-27] MEDS: SPIRONOLACTONE 25 MG TAB PO SCH ×2 (09:31→17:03)
--- NOTE | 2018-06-27 11:51 | P.DS ---
Providers Date of admission: 06/19/18 13:05 Expected date of discharge: 06/27/18 Attending physician: Michelle Naqvi Consults: 06/19/18 13:01 Consult Physician Urgent Consulting Provider: Walt Valadez Consult Reason/Comments: Dyspnea Do you want consulting provider notified?: Yes 06/20/18 14:22 Consult Physician Routine Consulting Provider: Amber Jasso Consult Reason/Comments: CHF Do you want consulting provider notified?: Yes Consult Physician Routine Consulting Provider: Clifford Johnson Consult Reason/Comments: T8 compression fracture Do you want consulting provider notified?: Yes 06/22/18 14:28 Consult Physician Routine Consulting Provider: Francisco Javier Palacios Consult Reason/Comments: T8 fracture Do you want consulting provider notified?: Yes Primary care physician: Michelle Driss [facility] Course: Discharge diagnosis 1. Shortness of breath: Possibly related to congestive heart failure exacerbation and bronchiolitis obliterans with organizing pneumonia. Patient has been cleared by cardiology and pulmonary services for discharge 2. Acute on chronic diastolic congestive heart failure exacerbation: BNP minimally elevated 996. Echo shows an EF of 50-55% mild aortic stenosis and mild pulmonary hypertension. Patient has had 10 pound weight gain and lower extremity edema. Cardiology discontinued IV lasix and started oral lasix 3. Leukocytosis: Likely related to the prednisone patient is on outpatient. White count is trending down 4. Anemia with known history of iron deficiency anemia: No reports of bleeding. Patient iron level still low at 37. Increase ferrous sulfate 325 mg twice a day. 5. History of bronchiolitis obliterans with organizing pneumonia: Currently on prednisone 30 mg daily. Pulmonary service decrease prednisone to 20 mg daily due to weight gain and back fracture 6. History of Hodgkin's lymphoma treated with chemo and radiation treatment in 1978 7. History of breast cancer with mastectomy 2004 8. Renal cancer status post partial right nephrectomy December 2017. Renal ultrasound from 06/15/2018 shows no suspicious findings 9. Hypothyroidism continue Synthroid 10. Essential hypertension: Patient's blood pressures are on the lower side. Cozaar held. pulmonary service discontinued the hydrochlorothiazide and changed Aldactone to 25 mg twice a day. Place parameters to hold her Aldactone for systolic blood pressure less than 115 11. History of persistent asthma: Continue nebulizer treatments and Pulmicort 12. T8 compression fracture that has progressed noted on thoracic spine x-ray. Consult physical therapy. Patient complaining of worsening back pain. Will increase the Urania to 7.5 every 6 hours as needed for pain. MRI showing multiple thoracic compression fractures and more severe at T8. Probable osteoporotic type fracture. MRI also mentions tiny foci of metastatic disease however cannot be entirely excluded. Patient seen by spinal surgery. And she' ll follow-up with him outpatient. At this time the recommending a back brace and physical therapy. 13. Osteoporosis 14. Herpes simplex type I rash left buttocks resume patient's home Zovirax and acyclovir Hospital course This is a 63-year-old female with a known past medical history of obliterans bronchiolitis, Hodgkin's lymphoma status post chemo and radiation treatment in 1978, breast cancer with mastectomy 2004, kidney cancer December 2017 with removal of tumor. Also history of asthma, GERD, hyperlipidemia, hypertension, iron deficiency anemia, hypothyroidism and diastolic congestive heart failure. Patient presents to emergency room with complaints of shortness of breath that has worsened over the last 2 days. Patient reports that she is always having some shortness of breath. Over the last 2 days it is significantly worsened. She has had about a 10 pound weight gain less than 1 week. She has lower extremity edema. She is also noted some increase in swelling and redness of her face. She was diagnosed with the BOOP September 2017 and has had been on prednisone 30 mg daily since. Patient has noticed worsening shortness of breath with any activity. On admission white count was 17.1 hemoglobin 10.9. Troponins negative. EKG had shown sinus tachycardia with a heart rate of 106 and a left bundle branch block. Chest x-ray reports correlate for CHF with early interstitial pulmonary edema. Also noted a mild anterior wedging of a mid thoracic vertebral body appears new from 06/06/2018. Patient is complaining of upper back pain. CT of the chest shows no acute pulmonary embolism. Few scattered punctate lung nodules and small left pleural effusion. Initially patient wasn't be discharged home from the ER. However, she did not feel comfortable going home because this morning her breathing was so bad she felt that she might or pass out. Therefore patient will be admitted to the hospital. Pulmonary service has been consulted. They have placed her on IV Lasix. Patient denies any fever or chills. She reports having sweats. She denies any nausea or vomiting bowel movement changes or urinary symptoms. 06/20/2018 patient still having some shortness of breath. She had a episode this morning where she went to use the restroom and became very short of breath had to call nursing staff for help. Oxygen saturation was checked at that time it was 93%. Patient was given Xanax and reported that it helped with her breathing. She also was found to have a T8 compression fracture that has progressed on x-ray. This is possibly related to steroids. Pulmonary service has decreased prednisone to 20 mg daily. She remains on the IV Lasix for her congestive heart failure. Weight has decreased from 93 to 89.7 kg. Patient is complaining of constipation. On 06/21/2018 patient is currently sitting comfortably in bed. Does state when she gets up she is restroom that she still becomes very short of breath. Dr. Johnson has been consulted for T8 compression fracture. Awaiting consult. Potassium 3.2 replacement has been ordered. Pulmonology will continue IV diuretics for another 24 hours. Denies chest pain or shortness breath. Patient states she had a bowel movement this a.m. 06/22/2018 patient still complaining of back pain. Pain Medication does help. She is still having some shortness of breath. Cardiology is recommending IV Lasix for another 24 hours. Her weight did increase to 90.[address] Johnson is out of town. 06/23/2018 patient reporting that her back pain has worsened. Pain is radiating from her back along the right side. Patient has been seen by cardiology and cleared for discharge. Patient is waiting to be seen by orthopedics regards to her T8 fracture. Cardiology is placed her on oral Lasix. Urania will be increased to 7.5 every 6 hours as needed for pain on 06/24/2018 patient alert and oriented in no distress, reporting that her back pain is somewhat controlled with pain medications then recurs in 2-3 hours. Pain is radiating from her back along the both sides to the front. Patient is waiting to be seen by orthopedics regards to her T8 fracture. Cardiology is placed her on oral Lasix. Urania will be increased to 7.5 every 6 hours as needed for pain 06/25/2018 patient is alert and oriented 3 in no apparent distress pain in the back is slightly better controlled shortness of breath is improving, she denies any other complaints at this time, I spoke with [facility] orthopedic physician cosmetic sales assistant and he indicated that Dr Johnson will return to work from vacation on Tuesday, patient will be evaluated by him on Tuesday. 06/26/2018 patient still complaining of back pain. Pain medication is helping. Awaiting patient to be evaluated by Dr. Johnson on Tuesday for back brace. She still having some shortness of breath and anxiety. Awaiting Dr. celeste in to review MRI of the thoracic spine findings. White count 16.9 likely related to prednisone. Patient complaining of herpes rash breaking out on her left buttocks. Patient reports she does get rashes like this when she is anxious or sick. She usually takes Zovirax and acyclovir at home. She is complaining also of some oral thrush nystatin swish and swallow ordered. Patient is medically stable for discharge. She was cleared earlier for discharge by pulmonary and cardiology services. I she was seen by spinal surgery, Dr. Johnson today. I they've ordered the back brace. Back brace should be fitted earlier this afternoon. And then patient will be discharged home. Dr. Naqvi will be writing a prescription for Urania 7.5 one every 6 hours as needed for pain. Patient's pain is tolerable. She'll be discharged home with home care and continue with physical therapy outpatient. Patient is medically serve for discharge. Please refer to chart for any further details. Also noted during this admission patient's blood pressure have been on the lower side. She'll continue off the losartan. HIDA chlorothiazide discontinued during this admission. She's currently on Aldactone 25 twice a day and Lasix 40 twice. Pulmonary service to decrease the prednisone to 20 daily. She does have evidence of oral thrush and is continuing on nystatin swish and swallow. Her iron was increased to turn 25 twice a day due to her iron deficiency anemia. I performed an examination of the patient and discussed their management with the physician Wallpaper Hanger Helper. I have reviewed the Physician Wallpaper Hanger Helper's notes and agree with the documented findings and plan of care Patient Condition at Discharge: Stable Plan - Discharge Summary Discharge Rx Participant: Yes New Discharge Prescriptions: New Ferrous Sulfate [Iron (65 MG Elemental)] 325 mg PO BID #60 tab Furosemide [Lasix] 40 mg PO BID #60 tab HYDROcodone/APAP 7.5-325MG [Urania 7.5-325] 1 each PO Q6H PRN tab PRN Reason: Moderate Pain Nystatin 100,000 Unit/ml Susp [Mycostatin Oral Susp] 500,000 unit PO QID #24 cup predniSONE 20 mg PO DAILY #30 tab Spironolactone [Aldactone] 25 mg PO BID@0900,1600 #60 tab Continue Budesonide-Formot 160-4.5 Mcg [Symbicort 160-4.5 Mcg Inhaler] 2 puff INHALATION RT-BID Simvastatin [Zocor] 40 mg PO HS Sertraline [Zoloft] 200 mg PO AC-SUPPER Montelukast [Singulair] 10 mg PO HS Metoprolol Succinate (ER) [Toprol XL] 25 mg PO DAILY Levothyroxine Sodium [Synthroid] 100 mcg PO DAILY Albuterol Sulfate [Proair Hfa] 2 puff INHALATION RT-Q6H PRN PRN Reason: Shortness Of Breath ARIPiprazole [Abilify] 2 mg PO DAILY Ranitidine HCl [Zantac] 150 mg PO HS PRN PRN Reason: Heartburn Acyclovir [Zovirax] 1 applic TOPICAL 5XD PRN PRN Reason: Cold Sores Acyclovir 400 mg PO DAILY PRN PRN Reason: Cold Sores Cetirizine HCl [Zyrtec] 10 mg PO HS PRN PRN Reason: Allergy Symptoms ALPRAZolam [Xanax] 0.5 mg PO TID PRN PRN Reason: Anxiety Omeprazole 40 mg PO BID Ergocalciferol [Vitamin D2 (DRISDOL)] 50,000 unit PO SA Discontinued Losartan [Cozaar] 25 mg PO DAILY Potassium Chloride ER [K-Dur 10] 10 meq PO DAILY #30 tab Spironolactone-Hctz 25-25Mg [Aldactazide 25-25 MG] 1 tab PO DAILY predniSONE 30 mg PO DAILY Furosemide [Lasix] 40 mg PO DAILY Ferrous Sulfate [Feosol] 325 mg PO DAILY Discharge Medication List Budesonide-Formot 160-4.5 Mcg [Symbicort 160-4.5 Mcg Inhaler] 2 puff INHALATION RT-BID 10/05/16 [History] Levothyroxine Sodium [Synthroid] 100 mcg PO DAILY 10/05/16 [History] Metoprolol Succinate (ER) [Toprol XL] 25 mg PO DAILY 10/05/16 [History] Montelukast [Singulair] 10 mg PO HS 10/05/16 [History] Sertraline [Zoloft] 200 mg PO AC-SUPPER 10/05/16 [History] Simvastatin [Zocor] 40 mg PO HS 10/05/16 [History] ARIPiprazole [Abilify] 2 mg PO DAILY 04/06/17 [History] Albuterol Sulfate [Proair Hfa] 2 puff INHALATION RT-Q6H PRN 04/06/17 [History] Acyclovir 400 mg PO DAILY PRN 05/13/17 [History] Acyclovir [Zovirax] 1 applic TOPICAL 5XD PRN 05/13/17 [History] Cetirizine HCl [Zyrtec] 10 mg PO HS PRN 05/13/17 [History] Ranitidine HCl [Zantac] 150 mg PO HS PRN 05/13/17 [History] ALPRAZolam [Xanax] 0.5 mg PO TID PRN 06/19/18 [History] Ergocalciferol [Vitamin D2 (DRISDOL)] 50,000 unit PO SA 06/19/18 [History] Omeprazole 40 mg PO BID 06/19/18 [History] Ferrous Sulfate [Iron (65 MG Elemental)] 325 mg PO BID #60 tab 06/27/18 [Rx] Furosemide [Lasix] 40 mg PO BID #60 tab 06/27/18 [Rx] HYDROcodone/APAP 7.5-325MG [Urania 7.5-325] 1 each PO Q6H PRN tab 06/27/18 [Rx] Nystatin 100,000 Unit/ml Susp [Mycostatin Oral Susp] 500,000 unit PO QID #24 cup 06/27/18 [Rx] Spironolactone [Aldactone] 25 mg PO BID@0900,1600 #60 tab 06/27/18 [Rx] predniSONE 20 mg PO DAILY #30 tab 06/27/18 [Rx] Follow up Appointment(s)/Referral(s): Perico Domingo PAC [PHYSICIAN MANAGER BAKERY] - 2 Weeks (Patient may follow-up with Perico Domingo PA-C or Dr. Giuseppe Johnson at [facility] in 2-3 weeks following discharge. ) Walt Valadez DO [Doctor of Osteopathic Medicine] - 06/26/18 9:30 am [facility], [NON-STAFF] - Michelle Naqvi MD [Primary Care Provider] - 06/27/18 2:45 pm (tuesday) Patient Instructions/Handouts: Dyspnea (GEN), Chronic Lung Disease and Infection Prevention (DC) Activity/Diet/Wound Care/Special Instructions: TLSO brace ordered through [employer] #[phone] 1. Patient may wear [employer] TLSO brace for comfort and support while sitting upright at greater than 45, while working with therapy, and while ambulating; patient does not have to wear the brace while lying in bed or bathing 2. Patient should avoid excessive bending, twisting, and lifting; no lifting greater than 10 pounds Diet: cardiac Discharge Disposition: HOME SELF-CARE
[2018-06-27 13:28] VITALS: PULSE 88
[2018-06-27] MEDS: SERTRALINE 100 MG TAB PO SCH (17:03)
== END 2018-06-27 18:23 | disposition home health service (06) | DRG 292 ==
LOC: EC 10:17 → 6SEL 13:05 → 5MS5E 06-24 09:11
PROVIDERS: ADMIT Internal Medicine; ATTEND Internal Medicine
DX: I11.0 Hypertensive heart disease with heart failure (principal); J96.11 Chronic respiratory failure with hypoxia; M48.54XA Collapsed vertebra, not elsewhere classified, thoracic region, initial encounter for fracture; B37.0 Candidal stomatitis; I50.33 Acute on chronic diastolic (congestive) heart failure; K21.9 Gastro-esophageal reflux disease without esophagitis; K59.00 Constipation, unspecified; M54.14 Radiculopathy, thoracic region; B00.9 Herpesviral infection, unspecified; Z85.72 Personal history of non-Hodgkin lymphomas; D50.9 Iron deficiency anemia, unspecified; D72.829 Elevated white blood cell count, unspecified; T38.0X5A Adverse effect of glucocorticoids and synthetic analogues, initial encounter; E06.3 Autoimmune thyroiditis; E78.5 Hyperlipidemia, unspecified; F41.9 Anxiety disorder, unspecified; G47.33 Obstructive sleep apnea (adult) (pediatric); I08.0 Rheumatic disorders of both mitral and aortic valves; I27.20 Pulmonary hypertension, unspecified; I44.7 Left bundle-branch block, unspecified; J45.998 Other asthma; M85.88 Other specified disorders of bone density and structure, other site; R79.1 Abnormal coagulation profile; Z79.51 Long term (current) use of inhaled steroids; Z79.899 Other long term (current) drug therapy; Z82.49 Family history of ischemic heart disease and other diseases of the circulatory system; Z85.3 Personal history of malignant neoplasm of breast; Z85.528 Personal history of other malignant neoplasm of kidney; Z87.891 Personal history of nicotine dependence; Z90.12 Acquired absence of left breast and nipple; Z90.710 Acquired absence of both cervix and uterus; Z92.21 Personal history of antineoplastic chemotherapy; Z92.3 Personal history of irradiation; Z90.5 Acquired absence of kidney; F32.9 Major depressive disorder, single episode, unspecified; J84.89 Other specified interstitial pulmonary diseases; E87.6 Hypokalemia; Z79.890 Hormone replacement therapy; E03.9 Hypothyroidism, unspecified; Z82.0 Family history of epilepsy and other diseases of the nervous system; Z90.81 Acquired absence of spleen; E66.9 Obesity, unspecified; Z68.36 Body mass index [BMI] 36.0-36.9, adult; D64.9 Anemia, unspecified
CPT/HCPCS: 36415; 71046; 71275; 72072; 72146; 80048; 80053; 82550; 82553; 82728; 83540; 83550; 83735; 83880; 84484; 85025; 85379; 85610; 85730; 87040; 93005; 93306; 94640; 94760; 96374; 99285

== ENCOUNTER 2018-07-02 20:29 | Inpatient (IN) | payer BC ==
[2018-07-02] MEDS ORDERED: ALBUTEROL NEBULIZED 2.5 MG/3 ML INHALATION STA (21:03)
[2018-07-02] MEDS ORDERED: ACETAMINOPHEN TAB 325 MG TAB PO STA (21:03)
[2018-07-02] MEDS ORDERED: HYDROcodone/APAP 5-325MG 1 EACH TAB PO STA (21:11)
[2018-07-02] MEDS ORDERED: ALPRAZolam 0.5 MG TAB PO STA (21:12)
[2018-07-02 21:14] LABS: Anisocytosis Slight; HCT 34.5 % (34.0-46.0); HGB 10.7 gm/dL (11.4-16.0); Hypochromasia Slight; MCV 80.6 fL (80.0-100.0); Mean Platelet Volume 6.7; Microcytosis Slight; Platelet Count 368 k/uL (150-450); RBC 4.28 m/uL (3.80-5.40); RDW 19.8 % (11.5-15.5)
[2018-07-02 21:17] LABS: WBC 30.1 k/uL (3.8-10.6)
--- NOTE | 2018-07-02 21:22 | ED ---
SOB HPI - General Chief Complaint: Shortness of Breath Stated Complaint: LUCILLE Time Seen by Provider: 07/02/18 20:51 Source: patient, EMS Mode of arrival: EMS Limitations: no limitations - History of Present Illness Initial Comments: 63-year-old woman with history of BOOP, presenting with worsening of her respiratory symptoms since early this morning around 6 AM. The patient states that she has been feeling somewhat short of breath also having cough with some yellowish sputum and then this evening just before coming in noted that she felt hot and seemed she had a fever though they did not find a temperature. MD Complaint: shortness of breath, cough Onset/Timin -: hour(s) Consistency: constant Improves With: nothing Worsens With: nothing Known History Of: other (BOOP) Context: recent URI Associated Symptoms: denies other symptoms - Related Data Home Medications Medication Instructions Recorded Confirmed Budesonide-Formot 160-4.5 Mcg 2 puff INHALATION RT-BID 10/05/16 06/19/18 [Symbicort 160-4.5 Mcg Inhaler] Levothyroxine Sodium [Synthroid] 100 mcg PO DAILY 10/05/16 06/19/18 Metoprolol Succinate (ER) [Toprol 25 mg PO DAILY 10/05/16 06/19/18 XL] Montelukast [Singulair] 10 mg PO HS 10/05/16 06/19/18 Sertraline [Zoloft] 200 mg PO AC-SUPPER 10/05/16 06/19/18 Simvastatin [Zocor] 40 mg PO HS 10/05/16 06/19/18 ARIPiprazole [Abilify] 2 mg PO DAILY 04/06/17 06/19/18 Albuterol Sulfate [Proair Hfa] 2 puff INHALATION RT-Q6H PRN 04/06/17 06/19/18 Acyclovir 400 mg PO DAILY PRN 05/13/17 06/19/18 Acyclovir [Zovirax] 1 applic TOPICAL 5XD PRN 05/13/17 06/19/18 Cetirizine HCl [Zyrtec] 10 mg PO HS PRN 05/13/17 06/19/18 Ranitidine HCl [Zantac] 150 mg PO HS PRN 05/13/17 06/19/18 ALPRAZolam [Xanax] 0.5 mg PO TID PRN 06/19/18 06/19/18 Ergocalciferol [Vitamin D2 50,000 unit PO SA 06/19/18 06/19/18 (DRISDOL)] Omeprazole 40 mg PO BID 06/19/18 06/19/18 Previous Rx's Medication Instructions Recorded Ferrous Sulfate [Iron (65 MG 325 mg PO BID #60 tab 06/27/18 Elemental)] Furosemide [Lasix] 40 mg PO BID #60 tab 06/27/18 HYDROcodone/APAP 7.5-325MG [[place]udson 1 each PO Q6H PRN tab 06/27/18 7.5-325] Nystatin 100,000 Unit/ml Susp 500,000 unit PO QID #24 cup 06/27/18 [Mycostatin Oral Susp] Spironolactone [Aldactone] 25 mg PO BID@0900,1600 #60 tab 06/27/18 predniSONE 20 mg PO DAILY #30 tab 06/27/18 Allergies Allergy/AdvReac Type Severity Reaction Status Date / Time No Known Allergies Allergy Verified 06/19/18 11:02 Review of Systems ROS Statement: Those systems with pertinent positive or pertinent negative responses have been documented in the HPI. ROS Other: All systems not noted in ROS Statement are negative. Constitutional: Reports: fever, weakness. Denies: chills Respiratory: Reports: cough, dyspnea, wheezes. Denies: hemoptysis Cardiovascular: Denies: chest pain, palpitations, orthopnea, edema, syncope Gastrointestinal: Denies: abdominal pain, vomiting, diarrhea Genitourinary: Denies: dysuria, hematuria Musculoskeletal: Reports: back pain (Patient states she has chronic back pain due to a compression fracture) Skin: Denies: rash Neurological: Denies: headache, weakness, numbness Past Medical History Past Medical History: Asthma, Cancer, Heart Failure, GERD/Reflux, Hyperlipidemia , Hypertension, Sleep Apnea/CPAP/BIPAP, Thyroid Disorder Additional Past Medical History / Comment(s): Hodgkins Lymphoma status post chemo and radiation 1978; Breast CA-status post mastectomy(sx only),home 02 pt not sure how many liters. (boop)- bronchiolitis obliterans organizing pne, rt kidney ca removed, had a pne vaccine less than 5 years ago not sure of date.functional tester typewriters unable to verify date at time of this admit. History of Any Multi-Drug Resistant Organisms: None Reported Past Surgical History: Adenoidectomy, Breast Surgery, Section, Hysterectomy, Orthopedic Surgery, Tonsillectomy Additional Past Surgical History / Comment(s): Spleenectomy, Lapraotomy. Colonoscopy, EGD, Foot surgery, breast reconstruction, lung bx, rt kidney cancer removed Past Anesthesia/Blood Transfusion Reactions: No Reported Reaction Past Psychological History: Anxiety, Depression Smoking Status: Former smoker - Past Family History Mother Family Medical History: Osteoarthritis (OA) Additional Family Medical History / Comment(s): glaucoma Brother(s) Additional Family Medical History / Comment(s): MS Father Family Medical History: Myocardial Infarction ([place]) Additional Family Medical History / Comment(s): age 70 -mi General Exam Limitations: no limitations General appearance: alert, in no apparent distress, obese Head exam: Present: atraumatic, normocephalic Eye exam: Present: normal appearance. Absent: scleral icterus, conjunctival injection ENT exam: Present: mucous membranes dry Neck exam: Present: normal inspection Respiratory exam: Present: wheezes. Absent: respiratory distress, rales, rhonchi, stridor, accessory muscle use, decreased breath sounds, prolonged expiratory Cardiovascular Exam: Present: normal rhythm, tachycardia, normal heart sounds. Absent: systolic murmur, diastolic murmur, rubs, gallop GI/Abdominal exam: Present: soft. Absent: distended, tenderness, guarding, rebound, mass Extremities exam: Present: normal inspection, normal capillary refill. Absent: pedal edema, calf tenderness Back exam: Present: normal inspection. Absent: CVA tenderness (R), CVA tenderness (L) Neurological exam: Present: alert Skin exam: Present: warm, dry, intact, normal color. Absent: rash Course Vital Signs 07/02/18 07/02/18 07/02/18 20:36 20:42 21:04 Temperature 102.4 F H Pulse Rate 115 H Respiratory 24 26 H 24 Rate Blood Pressure 113/56 O2 Sat by Pulse 98 Oximetry 07/02/18 07/02/18 07/02/18 21:17 21:25 22:15 Temperature 102.2 F H Pulse Rate 112 H 113 H Respiratory Rate Blood Pressure O2 Sat by Pulse Oximetry 07/02/18 22:21 Temperature Pulse Rate 115 H Respiratory Rate Blood Pressure O2 Sat by Pulse 98 Oximetry Medical Decision Making - Lab Data Result diagrams: 07/02/18 20:55 07/02/18 20:55 Lab Results 07/02/18 07/02/18 07/02/18 Range/Units 20:55 20:55 20:55 WBC 30.1 H* (3.8-10.6) k/uL RBC 4.28 (3.80-5.40) m/uL Hgb 10.7 L (11.4-16.0) gm/dL Hct 34.5 (34.0-46.0) % MCV 80.6 (80.0-100.0) fL MCH 25.0 (25.0-35.0) pg MCHC 31.0 (31.0-37.0) g/dL RDW 19.8 H (11.5-15.5) % Plt Count 368 (150-450) k/uL Neutrophils % (Manual) 84 % Lymphocytes % (Manual) 14 % Monocytes % (Manual) 2 % Eosinophils % (Manual) 1 % Neutrophils # (Manual) 25.28 H (1.3-7.7) k/uL Lymphocytes # (Manual) 4.21 (1.0-4.8) k/uL Monocytes # (Manual) 0.60 (0-1.0) k/uL Eosinophils # (Manual) 0.30 (0-0.7) k/uL Nucleated RBCs 0 (0-0) /100 WBC Manual Slide Review Performed Hypochromasia Slight Anisocytosis Slight Microcytosis Slight PT (9.0-12.0) sec INR (<1.2) APTT (22.0-30.0) sec Sodium 136 L (137-145) mmol/L Potassium 4.0 (3.5-5.1) mmol/L Chloride 97 L (98-107) mmol/L Carbon Dioxide 31 H (22-30) mmol/L Anion Gap 8 mmol/L BUN 19 H (7-17) mg/dL Creatinine 0.80 (0.52-1.04) mg/dL Est GFR (CKD-EPI)AfAm >90 (>60 ml/min/1.73 sqM) Est GFR (CKD-EPI)NonAf 79 (>60 ml/min/1.73 sqM) Glucose 86 (74-99) mg/dL Plasma Lactic Acid Myron (0.7-2.0) mmol/L Calcium 9.1 (8.4-10.2) mg/dL Total Bilirubin 0.7 (0.2-1.3) mg/dL AST 19 (14-36) U/L ALT 34 (9-52) U/L Alkaline Phosphatase 88 (38-126) U/L Total Creatine Kinase <20 L (30-135) U/L CK-MB (CK-2) 0.5 (0.0-2.4) ng/mL CK-MB (CK-2) Rel Index Troponin I 0.216 H* (0.000-0.034) ng/mL NT-Pro-B Natriuret Pep pg/mL Total Protein 6.0 L (6.3-8.2) g/dL Albumin 3.5 (3.5-5.0) g/dL 07/02/18 07/02/18 07/02/18 Range/Units 20:55 20:55 22:28 WBC (3.8-10.6) k/uL RBC (3.80-5.40) m/uL Hgb (11.4-16.0) gm/dL Hct (34.0-46.0) % MCV (80.0-100.0) fL MCH (25.0-35.0) pg MCHC (31.0-37.0) g/dL RDW (11.5-15.5) % Plt Count (150-450) k/uL Neutrophils % (Manual) % Lymphocytes % (Manual) % Monocytes % (Manual) % Eosinophils % (Manual) % Neutrophils # (Manual) (1.3-7.7) k/uL Lymphocytes # (Manual) (1.0-4.8) k/uL Monocytes # (Manual) (0-1.0) k/uL Eosinophils # (Manual) (0-0.7) k/uL Nucleated RBCs (0-0) /100 WBC Manual Slide Review Hypochromasia Anisocytosis Microcytosis PT 10.0 (9.0-12.0) sec INR 1.0 (<1.2) APTT 26.3 (22.0-30.0) sec Sodium (137-145) mmol/L Potassium (3.5-5.1) mmol/L Chloride (98-107) mmol/L Carbon Dioxide (22-30) mmol/L Anion Gap mmol/L BUN (7-17) mg/dL Creatinine (0.52-1.04) mg/dL Est GFR (CKD-EPI)AfAm (>60 ml/min/1.73 sqM) Est GFR (CKD-EPI)NonAf (>60 ml/min/1.73 sqM) Glucose (74-99) mg/dL Plasma Lactic Acid Myron 1.1 (0.7-2.0) mmol/L Calcium (8.4-10.2) mg/dL Total Bilirubin (0.2-1.3) mg/dL AST (14-36) U/L ALT (9-52) U/L Alkaline Phosphatase (38-126) U/L Total Creatine Kinase (30-135) U/L CK-MB (CK-2) (0.0-2.4) ng/mL CK-MB (CK-2) Rel Index Troponin I (0.000-0.034) ng/mL NT-Pro-B Natriuret Pep 4940 pg/mL Total Protein (6.3-8.2) g/dL Albumin (3.5-5.0) g/dL Disposition Clinical Impression: Pneumonia Disposition: ADMITTED IP TO THIS HOSP Condition: Poor Referrals: Michelle Naqvi MD [Primary Care Provider] - 1-2 days
[2018-07-02 21:23] LABS: Partial Thromboplastin Time 26.3 sec (22.0-30.0)
[2018-07-02 21:34] LABS: Lymphocytes # (M) 4.21 k/uL (1.0-4.8); Neutrophils # (M) 25.28 k/uL (1.3-7.7); Neutrophils % (M) 84 %; Nucleated Red Blood Cells 0 /100 WBC (0-0); Total Cells Counted 200
[2018-07-02 21:37] LABS: ALT 34 U/L (9-52); AST 19 U/L (14-36); Albumin 3.5 g/dL (3.5-5.0); Alkaline Phosphatase 88 U/L (38-126); Anion Gap 8 mmol/L; Blood Urea Nitrogen 19 mg/dL (7-17); Calcium 9.1 mg/dL (8.4-10.2); Carbon Dioxide 31 mmol/L (22-30); Chloride 97 mmol/L (98-107); Glucose 86 mg/dL (74-99); Sodium 136 mmol/L (137-145); Total Bilirubin 0.7 mg/dL (0.2-1.3)
[2018-07-02 21:41] LABS: Creatine Kinase <20 U/L (30-135)
[2018-07-02 21:54] LABS: Creatine Kinase MB 0.5 ng/mL (0.0-2.4)
[2018-07-02 21:58] LABS: Troponin I 0.216 ng/mL (0.000-0.034)
--- NOTE | 2018-07-02 22:07 | XR ---
EXAMINATION TYPE: XR chest 2V DATE OF EXAM: 07/02/2018 COMPARISON: 06/19/2018 HISTORY: 63-year-old female with difficulty breathing and shortness of breath TECHNIQUE: AP and lateral views FINDINGS: Heart is moderately enlarged. Calcifications in the mediastinum and left hilum related to prior granu lomatous disease. There is new focal opacity at the peripheral right upper and midlung and retrocardi ac opacity. Diffuse interstitial prominence. Trace pleural effusion on the lateral view. IMPRESSION: 1. Moderate cardiomegaly. Correlate for pulmonary vascular congestion/interstitial edema. 2. New focal consolidation at the right upper and midlung. Pneumonia not excluded. Follow-up after tr eatment to ensure clearance. 3. Additional patchy retrocardiac opacity and trace effusion on the lateral view.
[2018-07-02] MEDS ORDERED: PNEUMONIA PROTOCOL UTILIZED 1 EACH MISC PO PRN (22:14)
[2018-07-02] MEDS ORDERED: LEVOFLOXACIN 750MG-D5W PMX 750 MG in DEXTROSE/WATER 1 150ML.BAG IVPB STA (22:14)
[2018-07-02] MEDS ORDERED: PIPERACILLIN-TAZOBACTAM 3.375 GM in DEXTROSE/WATER 1 50ML.BAG IVPB STA (22:14)
[2018-07-02] MEDS ORDERED: FAMOTIDINE 20 MG TAB PO PRN (22:16)
[2018-07-02] MEDS ORDERED: SODIUM CHLORIDE 0.9% 1,000 ML IV ONE (22:24)
[2018-07-03] MEDS: ALBUTEROL NEBULIZED 2.5 MG/3 ML INHALATION PRN ×2 (00:25→04:55)
[2018-07-03] MEDS: ALPRAZolam 0.5 MG TAB PO PRN ×3 (02:24→16:05)
[2018-07-03] MEDS ORDERED: IPRATROPIUM-ALBUTEROL 3 ML NEB INHALATION STA ×2 (04:49→04:51)
[2018-07-03] MEDS: LEVOTHYROXINE 100 MCG TAB PO SCH (06:56)
[2018-07-03] MEDS: SYMBICORT 160-4.5 MCG INHALER INHALATION SCH ×2 (08:57→20:39)
[2018-07-03] MEDS: IPRATROPIUM-ALBUTEROL 3 ML NEB INHALATION SCH ×4 (08:57→20:39)
[2018-07-03] MEDS: HYDROcodone/APAP 7.5-325MG 1 EACH TAB PO PRN ×2 (08:58→16:04)
[2018-07-03] MEDS: FUROSEMIDE 20 MG TAB PO SCH ×2 (08:59→16:06)
[2018-07-03] MEDS: FERROUS SULFATE 325 MG TAB PO SCH ×2 (08:59→16:06)
[2018-07-03] MEDS: predniSONE 20 MG TAB PO SCH (08:59)
[2018-07-03] MEDS: PIPERACILLIN-TAZOBACTAM 3.375 GM in DEXTROSE/WATER 1 50ML.BAG IVPB SCH ×2 (09:00→16:06)
[2018-07-03] MEDS: SPIRONOLACTONE 25 MG TAB PO SCH ×2 (09:57→16:05)
[2018-07-03] MEDS: METOPROLOL SUCCINATE (ER) 25 MG TAB.ER.24H PO SCH (09:57)
[2018-07-03] MEDS: PANTOPRAZOLE 40 MG TABLET PO SCH ×2 (09:57→21:37)
[2018-07-03] MEDS: ARIPiprazole 2 MG TAB PO SCH (09:58)
--- NOTE | 2018-07-03 10:23 | P.HPIM ---
History of Present Illness H&P Date: 07/03/18 (Performed while covering for Dr. Naqvi) Chief Complaint: Shortness of breath cough 63-year-old female was seen evaluated examined in the emergency department subsequently on the selective care for increased symptoms of cough congestion shortness of breath started a few days ago patient recently has a history of T8 fracture required one week in stay in the hospital predominantly for pain management patient was discharged however 3-4 day after discharge started having increasing shortness of breath and cough and breathing difficulty was brought back into emergency department due to worsening of her respiratory symptoms since early this morning around 6 AM. The patient states that she has been feeling somewhat short of breath also having cough with some yellowish sputum and then this evening just before coming in noted that she felt hot and seemed she had a fever though they did not find a temperature. Review of Systems ROS Other: All systems not noted in ROS Statement are negative. Constitutional: Reports: fever, weakness. Denies: chills Respiratory: Reports: cough, dyspnea, wheezes. Denies: hemoptysis Cardiovascular: Denies: chest pain, palpitations, orthopnea, edema, syncope Gastrointestinal: Denies: abdominal pain, vomiting, diarrhea Genitourinary: Denies: dysuria, hematuria Musculoskeletal: Reports: back pain (Patient states she has chronic back pain due to a compression fracture) Skin: Denies: rash Neurological: Denies: headache, weakness, numbness All systems: negative Past Medical History Past Medical History: Asthma, Cancer, Heart Failure, GERD/Reflux, Hyperlipidemia , Hypertension, Sleep Apnea/CPAP/BIPAP, Thyroid Disorder Additional Past Medical History / Comment(s): 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 CHF, echo showed EF 50-55%, anemia, multiple thoracic compression fractures with T8 being worse, herpes simplex type I L buttock which was tx and pt states it is gone now. 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 History of Any Multi-Drug Resistant Organisms: None Reported Past Surgical History: Adenoidectomy, Breast Surgery, Section, Hysterectomy, Orthopedic Surgery, Tonsillectomy Additional Past Surgical History / Comment(s): Spleenectomy, laparotomy, colonoscopy, EGD, bilateral 5th toe surgery for spurs, L breast mastectomy with breast reconstruction, bronchoscopy/lung bx, rt kidney partial nephrectomy, bilateral cataract removals with lens implants. Past Anesthesia/Blood Transfusion Reactions: No Reported Reaction Smoking Status: Former smoker - Past Family History Mother Family Medical History: Osteoarthritis (OA) Additional Family Medical History / Comment(s): glaucoma Brother(s) Additional Family Medical History / Comment(s): MS Father Family Medical History: Myocardial Infarction (VT) Additional Family Medical History / Comment(s): age 70 -mi Medications and Allergies Home Medications Medication Instructions Recorded Confirmed Type Budesonide-Formot 160-4.5 Mcg 2 puff INHALATION RT-BID 10/05/16 07/03/18 History [Symbicort 160-4.5 Mcg Inhaler] Levothyroxine Sodium [Synthroid] 100 mcg PO DAILY 10/05/16 07/03/18 History Metoprolol Succinate (ER) [Toprol 25 mg PO DAILY 10/05/16 07/03/18 History XL] Montelukast [Singulair] 10 mg PO HS 10/05/16 07/03/18 History Sertraline [Zoloft] 200 mg PO AC-SUPPER 10/05/16 07/03/18 History Simvastatin [Zocor] 40 mg PO HS 10/05/16 07/03/18 History ARIPiprazole [Abilify] 2 mg PO DAILY 04/06/17 07/03/18 History Albuterol Sulfate [Proair Hfa] 2 puff INHALATION RT-Q6H PRN 04/06/17 07/03/18 History Acyclovir 400 mg PO DAILY PRN 05/13/17 07/03/18 History Acyclovir [Zovirax] 1 applic TOPICAL 5XD PRN 05/13/17 07/03/18 History Cetirizine HCl [Zyrtec] 10 mg PO HS PRN 05/13/17 07/03/18 History Ranitidine HCl [Zantac] 150 mg PO HS PRN 05/13/17 07/03/18 History ALPRAZolam [Xanax] 0.5 mg PO TID PRN 06/19/18 07/03/18 History Ergocalciferol [Vitamin D2 50,000 unit PO SA 06/19/18 07/03/18 History (DRISDOL)] Omeprazole 40 mg PO BID 06/19/18 07/03/18 History Ferrous Sulfate [Iron (65 MG 325 mg PO BID #60 tab 06/27/18 07/03/18 Rx Elemental)] Furosemide [Lasix] 40 mg PO BID #60 tab 06/27/18 07/03/18 Rx Nystatin 100,000 Unit/ml Susp 500,000 unit PO QID #24 cup 06/27/18 07/03/18 Rx [Mycostatin Oral Susp] Spironolactone [Aldactone] 25 mg PO BID@0900,1600 #60 tab 06/27/18 07/03/18 Rx predniSONE 20 mg PO DAILY #30 tab 06/27/18 07/03/18 Rx HYDROcodone/APAP 7.5-325MG [[place] 1 tab PO Q6H PRN 07/03/18 07/03/18 History 7.5-325] Allergies Allergy/AdvReac Type Severity Reaction Status Date / Time No Known Allergies Allergy Verified 07/03/18 07:27 Physical Exam Vitals: Vital Signs Temp Pulse Resp BP Pulse Ox 07/03/18 09:07 107 H 22 07/03/18 09:06 97.6 F 07/03/18 08:59 113 H 24 96 07/03/18 08:31 101 H 18 113/53 99 07/03/18 06:58 98.0 F 100 14 111/52 98 07/03/18 05:30 84 18 140/58 98 07/03/18 05:05 108 H 07/03/18 04:55 109 H 07/03/18 03:35 100 20 128/56 100 07/03/18 03:00 100 22 120/56 100 07/03/18 02:35 98.0 F 16 115/72 99 07/03/18 01:55 22 102/56 98 07/03/18 00:31 105 H 18 07/03/18 00:25 104 H 18 07/03/18 00:01 100.8 F H 109 H 22 107/53 96 07/02/18 23:03 101.1 F H 113 H 24 109/57 96 07/02/18 22:21 115 H 98 07/02/18 22:15 102.2 F H 07/02/18 21:25 113 H 07/02/18 21:17 112 H 07/02/18 21:04 24 07/02/18 20:42 26 H 07/02/18 20:36 102.4 F H 115 H 24 113/56 98 Intake and Output 07/02/18 07/03/18 07/03/18 22:59 06:59 14:59 Other: Weight 90.718 kg - Constitutional General appearance: cooperative, disheveled, mild distress, morbidly obese, no acute distress - EENT Eyes: EOMI, PERRLA, normal appearance ENT: hearing grossly normal, normal oropharynx Ears: bilateral: normal - Neck Carotids: bilateral: upstroke normal, bruit absent - Respiratory Respiratory: bilateral: CTA - Cardiovascular Heart sounds: normal: S1, S2 - Gastrointestinal General gastrointestinal: normal bowel sounds, soft - Integumentary Integumentary: normal, normal turgor - Neurologic Neurologic: CNII-XII intact - Musculoskeletal Musculoskeletal: gait normal, generalized weakness, strength equal bilaterally - Psychiatric Psychiatric: A&O x's 3, appropriate affect, intact judgment & insight Results CBC & Chem 7: 07/02/18 20:55 07/02/18 20:55 Labs: Abnormal Lab Results - Last 24 Hours (Table) 07/02/18 07/02/18 07/02/18 Range/Units 20:55 20:55 20:55 WBC 30.1 H* (3.8-10.6) k/uL Hgb 10.7 L (11.4-16.0) gm/dL RDW 19.8 H (11.5-15.5) % Neutrophils # (Manual) 25.28 H (1.3-7.7) k/uL Sodium 136 L (137-145) mmol/L Chloride 97 L (98-107) mmol/L Carbon Dioxide 31 H (22-30) mmol/L BUN 19 H (7-17) mg/dL Total Creatine Kinase <20 L (30-135) U/L Troponin I 0.216 H* (0.000-0.034) ng/mL Total Protein 6.0 L (6.3-8.2) g/dL 07/03/18 Range/Units 02:39 WBC (3.8-10.6) k/uL Hgb (11.4-16.0) gm/dL RDW (11.5-15.5) % Neutrophils # (Manual) (1.3-7.7) k/uL Sodium (137-145) mmol/L Chloride (98-107) mmol/L Carbon Dioxide (22-30) mmol/L BUN (7-17) mg/dL Total Creatine Kinase (30-135) U/L Troponin I 0.194 H* (0.000-0.034) ng/mL Total Protein (6.3-8.2) g/dL Chest x-ray: report reviewed, image reviewed (Right upper lobe dense localize infiltrate noted) Thrombosis Risk Factor Assmnt - Choose All That Apply Any of the Below Risk Factors Present?: Yes Each Factor Represents 1 point: Obesity (BMI >25), Serious lung disease incl. pneumonia (< 1month) Each Risk Factor Represents 2 Points: Age 61-74 years, Malignancy Other congenital or acquired thrombophilia - If yes, enter type in comment: No Thrombosis Risk Factor Assessment Total Risk Factor Score: 6 Thrombosis Risk Factor Assessment Level: High Risk Assessment and Plan Assessment: Right upper lobe pneumonia Early sepsis related to above with very high leukocytosis History of BOOP on suppressive therapy with prednisone Recent T8 fracture Hypertension hypertensive cardiovascular disease Chronic persistent asthma Generalized anxiety disorder History of Hodgkin's lymphoma back in 70s is status post XRT Severe morbid obesity Plan: Broad-spectrum antibiotics Pain management Gentle rehydration Pain spiral CT scan of the chest not only to look for right upper lobe infiltrate but also to rule out pulmonary embolism event her multiple comorbidities and high risk Further recommendations pending plan of care as per clinical response of patient and finding above-mentioned test results and reports DVT prophylaxis with pneumatic compression device and subcu heparin Time with Patient: Greater than 30
--- NOTE | 2018-07-03 15:42 | CT ---
EXAMINATION TYPE: CT angio chest DATE OF EXAM: 07/03/2018 COMPARISON: 06/19/2018 HISTORY: SOB CT DLP: 405.4 mGycm. Automated Exposure Control for Dose Reduction was Utilized. CONTRAST: CTA scan of the thorax is performed with IV Contrast, patient injected with 60 mL of Isovue 370, pulm onary embolism protocol. MIP Images are created on CT scanner and reviewed. FINDINGS: LUNGS: There is a linear hyperdense structure within the posterior left upper lobe that is new from t he prior CT of 08/24/2017. Correlate for any prior surgical intervention, kyphoplasty, or radiopaque f oreign body. This is not well appreciated on radiograph. There are multiple consolidations within the medial left upper lobe, medial right upper lobe, right m iddle lobe, left lower lobe medially, and medial right lower lobe suspicious for multifocal pneumonia given their peripheral location and decreased enhancement in comparison to the adjacent multifocal a telectasis. Small left pleural effusion is also seen. There appears to be bronchial narrowing the rig ht lower lobe such as on series 4 image 55. Bronchoscopy could be performed if there is further niranjan rn. Short-term follow-up is advised to ensure resolution. Additionally there are scattered groundglas s opacities and interlobular septal thickening suggestive of a component of fluid overload, likely ca rdiogenic. MEDIASTINUM: Numerous calcified mediastinal lymph nodes are benign. There is satisfactory enhancement of the pulmonary artery and its branches, there is no CT evidence for pulmonary embolism. The heart is mildly enlarged and there is reflux of contrast into the inferior vena cava. OTHER: Left breast implant is present. There is a new compression deformity of the T8 vertebral body with 2 mm retropulsion of the inferior endplate into the spinal canal grating mild spinal canal steno sis. Multiple metallic fragments are seen within the left upper abdomen and splenosis is also seen, s equela of injury. Left lateral ventral abdominal wall surgical clips are also present. Gastric divert iculum is identified of the fundus. No suspicious adenopathy is seen. No axillary adenopathy. Multile rajendra degenerative change of the thoracic spine is mild. IMPRESSION: 1. No evidence of pulmonary embolus. 2. Findings most compatible with multifocal pneumonia although there is narrowing of the left lower l obe subsegmental bronchi and bronchoscopy could be performed if there is concern for underlying mass. Additionally repeat CT after treatment and resolution of symptoms is recommended to ensure no underl rios mass. 3. Linear left upper lobe posterior radiopaque new density. Correlation for any prior surgical interv ention, recent kyphoplasty (cement embolus) or radiopaque foreign body is recommended. This is not we ll appreciated on radiograph. 4. New severe compression deformity of T8 with mild retropulsion of the inferior endplate creating at least mild spinal canal stenosis. 5. Findings suggesting fluid overload that may be cardiogenic or noncardiogenic.
[2018-07-03] MEDS: SERTRALINE 100 MG TAB PO SCH (16:05)
[2018-07-03] MEDS ORDERED: LEVOFLOXACIN 750MG-D5W PMX 750 MG in DEXTROSE/WATER 1 150ML.BAG IVPB SCH (21:00)
[2018-07-03] MEDS: ATORVASTATIN 20 MG TAB PO SCH (21:38)
[2018-07-03] MEDS: MONTELUKAST 10 MG TAB PO SCH (21:38)
[2018-07-03] MEDS: HEPARIN SODIUM,PORCINE 5,000 UNIT/ML 1 ML VIAL SQ SCH (21:38)
[2018-07-04] MEDS: ALPRAZolam 0.5 MG TAB PO PRN ×2 (00:06→20:06)
[2018-07-04] MEDS: HYDROcodone/APAP 7.5-325MG 1 EACH TAB PO PRN ×4 (00:06→23:02)
[2018-07-04] MEDS: PIPERACILLIN-TAZOBACTAM 3.375 GM in DEXTROSE/WATER 1 50ML.BAG IVPB SCH ×4 (00:08→23:01)
[2018-07-04 06:36] LABS: Anisocytosis Slight; Basophils % (A) 0 %; Eosinophils # (A) 0.1 k/uL (0-0.7); Eosinophils % (A) 1 %; HGB 9.3 gm/dL (11.4-16.0); Hypochromasia Slight; Lymphocytes # (A) 0.9 k/uL (1.0-4.8); Lymphocytes % (A) 6 %; MCHC 31.9 g/dL (31.0-37.0); MCV 81.6 fL (80.0-100.0); Mean Platelet Volume 6.9; Microcytosis Slight; Monocytes # (A) 0.4 k/uL (0-1.0); Monocytes % (A) 3 %; Neutrophils % (A) 90 %; Platelet Count 367 k/uL (150-450); RBC 3.56 m/uL (3.80-5.40); RDW 19.8 % (11.5-15.5); WBC 15.5 k/uL (3.8-10.6)
[2018-07-04 06:40] LABS: ALT 28 U/L (9-52); AST 15 U/L (14-36); Albumin 2.9 g/dL (3.5-5.0); Alkaline Phosphatase 83 U/L (38-126); Anion Gap 8 mmol/L; Blood Urea Nitrogen 17 mg/dL (7-17); Calcium 8.7 mg/dL (8.4-10.2); Carbon Dioxide 31 mmol/L (22-30); Chloride 98 mmol/L (98-107); Glucose 95 mg/dL (74-99); Potassium 3.7 mmol/L (3.5-5.1); Sodium 137 mmol/L (137-145); Total Bilirubin 0.4 mg/dL (0.2-1.3); Total Protein 5.3 g/dL (6.3-8.2)
[2018-07-04] MEDS: LEVOTHYROXINE 100 MCG TAB PO SCH (06:46)
[2018-07-04] MEDS: predniSONE 20 MG TAB PO SCH (06:46)
[2018-07-04] MEDS: FERROUS SULFATE 325 MG TAB PO SCH ×2 (06:46→15:37)
[2018-07-04] MEDS: IPRATROPIUM-ALBUTEROL 3 ML NEB INHALATION SCH ×4 (07:38→20:18)
[2018-07-04] MEDS: SYMBICORT 160-4.5 MCG INHALER INHALATION SCH ×2 (07:38→20:18)
[2018-07-04] MEDS: HEPARIN SODIUM,PORCINE 5,000 UNIT/ML 1 ML VIAL SQ SCH ×2 (08:11→20:07)
[2018-07-04] MEDS: SPIRONOLACTONE 25 MG TAB PO SCH ×2 (08:12→15:38)
[2018-07-04] MEDS: FUROSEMIDE 20 MG TAB PO SCH ×2 (08:12→15:36)
[2018-07-04] MEDS: ARIPiprazole 2 MG TAB PO SCH (08:12)
[2018-07-04] MEDS: METOPROLOL SUCCINATE (ER) 25 MG TAB.ER.24H PO SCH (08:12)
[2018-07-04] MEDS: PANTOPRAZOLE 40 MG TABLET PO SCH ×2 (08:13→20:07)
--- NOTE | 2018-07-04 11:34 | P.PN ---
<Judy Morel P - Last Filed: 07/04/18 11:25> Subjective Progress Note Date: 07/04/18 63-year-old female was seen evaluated examined in the emergency department subsequently on the selective care for increased symptoms of cough congestion shortness of breath started a few days ago patient recently has a history of T8 fracture required one week in stay in the hospital predominantly for pain management patient was discharged however 3-4 day after discharge started having increasing shortness of breath and cough and breathing difficulty was brought back into emergency department due to worsening of her respiratory symptoms since early this morning around 6 AM. The patient states that she has been feeling somewhat short of breath also having cough with some yellowish sputum and then this evening just before coming in noted that she felt hot and seemed she had a fever though they did not find a temperature. 07/04/2018 patient is currently resting in bed stating she does feels a bit better. Patient's appointment that she is having a nonproductive cough. Denies chest pain or shortness of breath. Patient remains on 3 L nasal cannula. Denies nausea vomiting or diarrhea. Awaiting pulmonary consult. Objective - Vital Signs Vital signs: Vital Signs Temp 97.9 F 07/04/18 08:05 Pulse 92 07/04/18 11:11 Resp 20 07/04/18 08:05 BP 109/60 07/04/18 08:05 Pulse Ox 100 07/04/18 08:05 Intake & Output 07/03/18 07/04/18 07/04/18 18:59 06:59 18:59 Intake Total 530 30 200 Output Total 800 Balance 530 -770 200 Weight 89.9 kg 90.1 kg Intake: IV 50 30 20 Invasive Line 1 20 20 10 Invasive Line 2 30 10 10 Oral 480 180 Output: Urine 800 Other: Voiding Method Toilet Toilet Toilet # Voids 1 1 - Exam Head normocephalic Neck supple Lungs bilateral crackles Heart regular rate and rhythm S1-S2, no rub or gallop Abdomen is soft nontender nondistended positive bowel sounds no hepatosplenomegaly Extremities no edema Neuro alert and orientated to 3 - Labs CBC & Chem 7: 07/04/18 05:39 07/04/18 05:39 Labs: Abnormal Lab Results - Last 24 Hours (Table) 07/04/18 07/04/18 Range/Units 05:39 05:39 WBC 15.5 H (3.8-10.6) k/uL RBC 3.56 L (3.80-5.40) m/uL Hgb 9.3 L (11.4-16.0) gm/dL Hct 29.0 L (34.0-46.0) % RDW 19.8 H (11.5-15.5) % Neutrophils # 14.0 H (1.3-7.7) k/uL Lymphocytes # 0.9 L (1.0-4.8) k/uL Carbon Dioxide 31 H (22-30) mmol/L Total Protein 5.3 L (6.3-8.2) g/dL Albumin 2.9 L (3.5-5.0) g/dL Microbiology - Last 24 Hours (Table) 07/02/18 21:45 Blood Culture - Preliminary Blood No Growth after 24 hours Assessment and Plan Assessment: 1. Right upper lobe pneumonia. Continue broad-spectrum antibiotics. Patient remains on Zosyn and Levaquin. Pulmonary services have been consulted. CT of the chest completed showing no evidence of pulmonary embolism 2. Early sepsis related to above with very high leukocytosis. WBC improving to 15.5. Blood culture currently negative. Sputum culture pending 3. History of BOOP on suppressive therapy with prednisone 4. Recent T8 fracture 5. Hypertension hypertensive cardiovascular disease. Patient remains on Lopressor 6. Chronic persistent asthma. Continue DuoNeb breathing treatment 7. Generalized anxiety disorder. Continue Zoloft, Ablify and Xanax 8. History of Hodgkin's lymphoma back in 70s is status post XRT 9. Severe morbid obesity GI prophylaxis Protonix DVT prophylaxis heparin I performed an examination of the patient and discussed their management with the Nurse Practitioner. I have reviewed the Nurse Practitioner's notes and agree with the documented findings and plan of care <Tristen Benavides - Last Filed: 07/04/18 18:43> Objective - Vital Signs Vital signs: Vital Signs Temp 98.1 F 07/04/18 15:47 Pulse 70 07/04/18 15:47 Resp 18 07/04/18 15:47 BP 111/60 07/04/18 15:47 Pulse Ox 100 07/04/18 15:47 Intake & Output 07/03/18 07/04/18 07/04/18 18:59 06:59 18:59 Intake Total 530 30 760 Output Total 800 200 Balance 530 -770 560 Weight 89.9 kg 90.1 kg Intake: IV 50 30 110 Invasive Line 1 20 20 30 Invasive Line 2 30 10 30 Piperacillin-Tazobactam 3 50 .375 gm In Dextrose/Water 1 50ml.bag @ 12.5 mls/hr IVPB Q8HR [facility] Rx#: [id number] Oral 480 650 Output: Urine 800 200 Other: Voiding Method Toilet Toilet Toilet # Voids 1 1 - Labs CBC & Chem 7: 07/04/18 05:39 07/04/18 05:39 Labs: Abnormal Lab Results - Last 24 Hours (Table) 07/04/18 07/04/18 Range/Units 05:39 05:39 WBC 15.5 H (3.8-10.6) k/uL RBC 3.56 L (3.80-5.40) m/uL Hgb 9.3 L (11.4-16.0) gm/dL Hct 29.0 L (34.0-46.0) % RDW 19.8 H (11.5-15.5) % Neutrophils # 14.0 H (1.3-7.7) k/uL Lymphocytes # 0.9 L (1.0-4.8) k/uL Carbon Dioxide 31 H (22-30) mmol/L Total Protein 5.3 L (6.3-8.2) g/dL Albumin 2.9 L (3.5-5.0) g/dL Microbiology - Last 24 Hours (Table) 07/02/18 21:45 Blood Culture - Preliminary Blood No Growth after 24 hours Assessment and Plan Time with Patient: Greater than 30
--- NOTE | 2018-07-04 12:02 | P.CNPUL ---
History of Present Illness Consult date: 07/04/18 Requesting physician: Michelle Naqvi Reason for consult: dyspnea, abnormal CXR/CT Chief complaint: Shortness of breath History of present illness: This is a very pleasant 63-year-old female patient who follows with Dr. Naqvi as her primary care physician. 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 She follows with Dr. Valadez in our office. Most recent FEV1 value in April 2018 was 60% of predicted. She is maintained on Symbicort, Singulair and albuterol. She was recently hospitalized here for an exacerbation of diastolic systolic congestive heart failure and back pain and was found to have a compression fracture of T8 and was followed by orthopedics. A CT angiogram was performed and revealed no pulmonary embolism and just few scattered punctate lung nodules and small left pleural effusion. She was discharged home on 06/27/2018. She presented here again 07/02/2018 with complaints of increasing shortness of breath, cough and congestion. CT angiogram again ruled out pulmonary embolism however there is now, multifocal pneumonia and narrowing of the left lower lobe subsegmental bronchi. She has remained afebrile. Maintaining O2 saturations in the 90s on 3 L/m per nasal cannula. Hemodynamically stable. The culture reveals no growth to date. Initial white count 30.1. Current white count 15.5. ProBNP 4940. Troponin 0.216, 0.194. Creatinine 0.76. She's been initiated on DuoNeb inhalations 4 times a day and when necessary, Symbicort, Singulair. She is maintained on her prednisone at 20 mg daily. She's been initiated on Zosyn and Levaquin. Currently on Lasix 40 mg twice a day. She is seen today in consultation on the selective care unit. She is awake and alert in no acute distress. Resting fairly comfortably in bed. She states she is breathing easier today as compared to yesterday. No worsening shortness of breath, cough or congestion. She is utilizing the BiPAP at night 12/5 in 28% FiO2. Review of Systems Constitutional: Reports fatigue, Reports poor appetite, Reports weakness Eyes: denies blurred vision, denies decreased vision Ears: deny: decreased hearing Ears, nose, mouth and throat: Reports nasal congestion Cardiovascular: Reports decreased exercise tolerance, Reports dyspnea on exertion, Reports shortness of breath Respiratory: Reports cough, Reports dyspnea, Reports sleep apnea Gastrointestinal: Reports loss of appetite Genitourinary: Denies dysuria, Denies hematuria Musculoskeletal: Reports fractures, Reports limitation of motion, Reports low back pain Integumentary: Reports change in hair/nails Neurological: Reports weakness Psychiatric: Reports anxiety Endocrine: Reports fatigue Hematologic/Lymphatic: Reports as per HPI Allergic/Immunologic: Reports as per HPI Past Medical History Past Medical History: Asthma, Cancer, Heart Failure, GERD/Reflux, Hyperlipidemia , Hypertension, Sleep Apnea/CPAP/BIPAP, Thyroid Disorder Additional Past Medical History / Comment(s): 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 CHF, echo showed EF 50-55%, anemia, multiple thoracic compression fractures with T8 being worse, herpes simplex type I L buttock which was tx and pt states it is gone now. 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 History of Any Multi-Drug Resistant Organisms: None Reported Past Surgical History: Adenoidectomy, Breast Surgery, Section, Hysterectomy, Orthopedic Surgery, Tonsillectomy Additional Past Surgical History / Comment(s): Spleenectomy, laparotomy, colonoscopy, EGD, bilateral 5th toe surgery for spurs, L breast mastectomy with breast reconstruction, bronchoscopy/lung bx, rt kidney partial nephrectomy, bilateral cataract removals with lens implants. Past Anesthesia/Blood Transfusion Reactions: No Reported Reaction Smoking Status: Former smoker - Past Family History Mother Family Medical History: Osteoarthritis (OA) Additional Family Medical History / Comment(s): glaucoma Brother(s) Additional Family Medical History / Comment(s): MS Father Family Medical History: Myocardial Infarction ([place]) Additional Family Medical History / Comment(s): age 70 -mi Medications and Allergies Home Medications Medication Instructions Recorded Confirmed Type Budesonide-Formot 160-4.5 Mcg 2 puff INHALATION RT-BID 10/05/16 07/03/18 History [Symbicort 160-4.5 Mcg Inhaler] Levothyroxine Sodium [Synthroid] 100 mcg PO DAILY 10/05/16 07/03/18 History Metoprolol Succinate (ER) [Toprol 25 mg PO DAILY 10/05/16 07/03/18 History XL] Montelukast [Singulair] 10 mg PO HS 10/05/16 07/03/18 History Sertraline [Zoloft] 200 mg PO AC-SUPPER 10/05/16 07/03/18 History Simvastatin [Zocor] 40 mg PO HS 10/05/16 07/03/18 History ARIPiprazole [Abilify] 2 mg PO DAILY 04/06/17 07/03/18 History Albuterol Sulfate [Proair Hfa] 2 puff INHALATION RT-Q6H PRN 04/06/17 07/03/18 History Acyclovir 400 mg PO DAILY PRN 05/13/17 07/03/18 History Acyclovir [Zovirax] 1 applic TOPICAL 5XD PRN 05/13/17 07/03/18 History Cetirizine HCl [Zyrtec] 10 mg PO HS PRN 05/13/17 07/03/18 History Ranitidine HCl [Zantac] 150 mg PO HS PRN 05/13/17 07/03/18 History ALPRAZolam [Xanax] 0.5 mg PO TID PRN 06/19/18 07/03/18 History Ergocalciferol [Vitamin D2 50,000 unit PO SA 06/19/18 07/03/18 History (DRISDOL)] Omeprazole 40 mg PO BID 06/19/18 07/03/18 History Ferrous Sulfate [Iron (65 MG 325 mg PO BID #60 tab 06/27/18 07/03/18 Rx Elemental)] Furosemide [Lasix] 40 mg PO BID #60 tab 06/27/18 07/03/18 Rx Nystatin 100,000 Unit/ml Susp 500,000 unit PO QID #24 cup 06/27/18 07/03/18 Rx [Mycostatin Oral Susp] Spironolactone [Aldactone] 25 mg PO BID@0900,1600 #60 tab 06/27/18 07/03/18 Rx predniSONE 20 mg PO DAILY #30 tab 06/27/18 07/03/18 Rx HYDROcodone/APAP 7.5-325MG [[place] 1 tab PO Q6H PRN 07/03/18 07/03/18 History 7.5-325] Allergies Allergy/AdvReac Type Severity Reaction Status Date / Time No Known Allergies Allergy Verified 07/03/18 07:27 Physical Exam Vitals: Vital Signs Temp Pulse Pulse Pulse Resp BP Pulse Ox 07/04/18 11:31 97 18 07/04/18 11:29 98.0 F 97 18 105/66 96 07/04/18 11:11 92 07/04/18 10:57 92 07/04/18 08:05 97.9 F 97 20 109/60 100 07/04/18 07:54 84 07/04/18 07:38 80 07/04/18 04:50 97.4 F L 84 20 101/62 100 07/03/18 23:30 97.4 F L 82 18 107/63 100 07/03/18 21:30 98.0 F 90 20 99/63 100 07/03/18 21:01 92 07/03/18 20:39 96 07/03/18 16:55 92 07/03/18 16:45 94 07/03/18 16:00 98.1 F 93 20 114/71 100 07/03/18 13:38 108 H 07/03/18 13:26 104 H 07/03/18 12:00 98.4 F 101 H 20 130/70 99 Intake and Output 07/03/18 07/04/18 07/04/18 22:59 06:59 14:59 Intake Total 270 20 500 Output Total 800 200 Balance 270 -780 300 Intake: IV 30 20 90 Invasive Line 1 20 10 20 Invasive Line 2 10 10 20 Piperacillin-Tazobactam 3 50 .375 gm In Dextrose/Water 1 50ml.bag @ 12.5 mls/hr IVPB Q8HR ERICA Rx#: [id number] Oral 240 410 Output: Urine 800 200 Other: Voiding Method Toilet Toilet Toilet # Voids 1 1 Weight 90.1 kg - Constitutional General appearance: morbidly obese, no acute distress - EENT Eyes: EOMI, PERRLA ENT: hearing grossly normal Ears: bilateral: normal - Neck Neck: normal ROM Carotids: bilateral: upstroke normal Thyroid: bilateral: normal size - Respiratory Respiratory: left: rales, bilateral: rhonchi - Cardiovascular Rhythm: regular Heart sounds: normal: S1, S2 - Gastrointestinal General gastrointestinal: normal bowel sounds - Integumentary Integumentary: normal - Neurologic Neurologic: CNII-XII intact - Musculoskeletal Musculoskeletal: generalized weakness - Psychiatric Psychiatric: A&O x's 3, appropriate affect, intact judgment & insight Results - Laboratory Findings CBC and BMP: 07/04/18 05:39 07/04/18 05:39 PT/INR, D-dimer PT 10.0 sec (9.0-12.0) 07/02/18 20:55 INR 1.0 (<1.2) 07/02/18 20:55 Abnormal lab findings: Abnormal Labs 07/02/18 07/02/18 07/02/18 20:55 20:55 20:55 WBC 30.1 H* RBC Hgb 10.7 L Hct RDW 19.8 H Neutrophils # Neutrophils # (Manual) 25.28 H Lymphocytes # Sodium 136 L Chloride 97 L Carbon Dioxide 31 H BUN 19 H Total Creatine Kinase <20 L Troponin I 0.216 H* Total Protein 6.0 L Albumin 07/03/18 07/04/18 07/04/18 02:39 05:39 05:39 WBC 15.5 H RBC 3.56 L Hgb 9.3 L Hct 29.0 L RDW 19.8 H Neutrophils # 14.0 H Neutrophils # (Manual) Lymphocytes # 0.9 L Sodium Chloride Carbon Dioxide 31 H BUN Total Creatine Kinase Troponin I 0.194 H* Total Protein 5.3 L Albumin 2.9 L - Diagnostic Findings Chest x-ray: image reviewed CT scan - chest: image reviewed Assessment and Plan Assessment: Impression: #1 Acute on chronic hypoxic respiratory failure secondary to an acute multifocal pneumonia, healthcare acquired. #2 Bronchiolitis obliterans organizing pneumonia (BOOP), biopsy proven. #3 Acute exacerbation of moderate persistent asthma secondary to above. #4 Obstructive sleep apnea utilizing CPAP in the outpatient setting. #5 History of diastolic congestive heart failure. #6 Hypertension. #7 Hyperlipidemia. #8 Gastroesophageal reflux disease. 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 #10 History of Hodgkin's lymphoma status post chemoradiation. #11 History of breast cancer status post mastectomy. #12 History of kidney cancer status post right nephrectomy. History of anxiety/ depression. Plan: The patient was seen and evaluated by Dr. Salcedo. Chest x-ray, CAT scans and labs all reviewed and compared to recent admission. There is new findings suggestive of healthcare acquired pneumonia. We'll continue with current antibiotics in form of Zosyn and Levaquin. We'll continue with DuoNeb inhalations, Symbicort, prednisone and may increase dose if needed. Heparin for DVT prophylaxis. Protonix for GI prophylaxis. Continue diuretics. We will repeat a chest x-ray in the a.m. We will increase her activity as tolerated. We'll continue to follow and make further recommendations based on her clinical status. I, the cosigning physician, performed a history & physical examination of the patient. Lungs sounds with few scattered rhonchi, crackles in the left posterior base. Maintaining good O2 saturations in the 90s on 2 L/m per nasal cannula. I discussed the assessment and plan of care with my nurse practitioner , Prachi Jones. I attest to the above consultation as dictated by her. Time with Patient: Greater than 30
[2018-07-04] MEDS: SERTRALINE 100 MG TAB PO SCH (15:37)
[2018-07-04] MEDS: methylPREDNISolone SOD SUCCI 40 MG/ML 1 ML VIAL IV SCH ×2 (15:38→23:01)
[2018-07-04] MEDS: LEVOFLOXACIN 750 MG TAB PO SCH (20:06)
[2018-07-04] MEDS: MONTELUKAST 10 MG TAB PO SCH (20:06)
[2018-07-04] MEDS: ATORVASTATIN 20 MG TAB PO SCH (20:06)
[2018-07-05 05:58] LABS: Anisocytosis Slight; Basophils % (A) 0 %; Eosinophils % (A) 0 %; HCT 29.6 % (34.0-46.0); HGB 9.4 gm/dL (11.4-16.0); Hypochromasia Slight; Lymphocytes # (A) 0.7 k/uL (1.0-4.8); Lymphocytes % (A) 7 %; MCH 25.7 pg (25.0-35.0); MCHC 31.7 g/dL (31.0-37.0); MCV 80.8 fL (80.0-100.0); Mean Platelet Volume 6.9; Microcytosis Slight; Monocytes # (A) 0.3 k/uL (0-1.0); Monocytes % (A) 3 %; Neutrophils # (A) 8.5 k/uL (1.3-7.7); Neutrophils % (A) 89 %; Platelet Count 440 k/uL (150-450); RBC 3.66 m/uL (3.80-5.40); RDW 19.9 % (11.5-15.5); WBC 9.6 k/uL (3.8-10.6)
[2018-07-05 06:41] LABS: Albumin 3.2 g/dL (3.5-5.0); Potassium 4.1 mmol/L (3.5-5.1); Total Bilirubin 0.4 mg/dL (0.2-1.3); Total Protein 5.8 g/dL (6.3-8.2)
[2018-07-05] MEDS: FERROUS SULFATE 325 MG TAB PO SCH ×2 (06:49→16:55)
[2018-07-05] MEDS: HYDROcodone/APAP 7.5-325MG 1 EACH TAB PO PRN ×3 (06:49→20:21)
[2018-07-05] MEDS: LEVOTHYROXINE 100 MCG TAB PO SCH (06:49)
[2018-07-05] MEDS: ALPRAZolam 0.5 MG TAB PO PRN ×3 (06:49→20:22)
[2018-07-05] MEDS: DOCUSATE 100 MG CAP PO PRN (06:50)
[2018-07-05] MEDS: IPRATROPIUM-ALBUTEROL 3 ML NEB INHALATION SCH ×4 (07:51→20:53)
[2018-07-05] MEDS: SYMBICORT 160-4.5 MCG INHALER INHALATION SCH ×2 (07:51→20:53)
[2018-07-05] MEDS: PIPERACILLIN-TAZOBACTAM 3.375 GM in DEXTROSE/WATER 1 50ML.BAG IVPB SCH ×3 (08:52→23:28)
[2018-07-05] MEDS: SPIRONOLACTONE 25 MG TAB PO SCH ×2 (08:53→16:55)
[2018-07-05] MEDS: methylPREDNISolone SOD SUCCI 40 MG/ML 1 ML VIAL IV SCH ×3 (08:53→23:28)
[2018-07-05] MEDS: FUROSEMIDE 20 MG TAB PO SCH ×2 (08:53→16:57)
[2018-07-05] MEDS: ARIPiprazole 2 MG TAB PO SCH (08:54)
[2018-07-05] MEDS: METOPROLOL SUCCINATE (ER) 25 MG TAB.ER.24H PO SCH (08:54)
[2018-07-05] MEDS: HEPARIN SODIUM,PORCINE 5,000 UNIT/ML 1 ML VIAL SQ SCH ×2 (08:55→20:23)
[2018-07-05] MEDS: PANTOPRAZOLE 40 MG TABLET PO SCH ×2 (08:55→20:22)
--- NOTE | 2018-07-05 10:54 | P.PN ---
Subjective Progress Note Date: 07/05/18 63-year-old female was seen evaluated examined in the emergency department subsequently on the selective care for increased symptoms of cough congestion shortness of breath started a few days ago patient recently has a history of T8 fracture required one week in stay in the hospital predominantly for pain management patient was discharged however 3-4 day after discharge started having increasing shortness of breath and cough and breathing difficulty was brought back into emergency department due to worsening of her respiratory symptoms since early this morning around 6 AM. The patient states that she has been feeling somewhat short of breath also having cough with some yellowish sputum and then this evening just before coming in noted that she felt hot and seemed she had a fever though they did not find a temperature. 07/04/2018 patient is currently resting in bed stating she does feels a bit better. Patient's appointment that she is having a nonproductive cough. Denies chest pain or shortness of breath. Patient remains on 3 L nasal cannula. Denies nausea vomiting or diarrhea. Awaiting pulmonary consult. 07/05/2018 patient is currently sitting up in bed. Does state she has some improvement from yesterday. Patient followed by Dr. Salcedo per pulmonary. Solu -Medrol 40 every 8 has been added. Patient denies chest pain or shortness breath at this time. Objective - Vital Signs Vital signs: Vital Signs Temp 97.3 F L 07/05/18 07:20 Pulse 92 07/05/18 08:03 Resp 18 07/05/18 07:20 BP 114/68 07/05/18 07:20 Pulse Ox 100 07/05/18 07:20 Intake & Output 07/04/18 07/05/18 07/05/18 18:59 06:59 18:59 Intake Total 1160 290 180 Output Total 500 Balance 660 290 180 Weight 90.8 kg Intake: IV 210 50 Invasive Line 1 30 Invasive Line 2 30 Piperacillin-Tazobactam 3 150 50 .375 gm In Dextrose/Water 1 50ml.bag @ 12.5 mls/hr IVPB Q8HR ERICA Rx#: [id number] Oral 950 240 180 Output: Urine 500 Other: Voiding Method Toilet Toilet Toilet # Voids 3 - Exam Head normocephalic Neck supple Lungs bilateral crackles Heart regular rate and rhythm S1-S2, no rub or gallop Abdomen is soft nontender nondistended positive bowel sounds no hepatosplenomegaly Extremities no edema Neuro alert and orientated to 3 - Labs CBC & Chem 7: 07/05/18 05:25 07/05/18 05:25 Labs: Abnormal Lab Results - Last 24 Hours (Table) 07/05/18 07/05/18 Range/Units 05:25 05:25 RBC 3.66 L (3.80-5.40) m/uL Hgb 9.4 L (11.4-16.0) gm/dL Hct 29.6 L (34.0-46.0) % RDW 19.9 H (11.5-15.5) % Neutrophils # 8.5 H (1.3-7.7) k/uL Lymphocytes # 0.7 L (1.0-4.8) k/uL Chloride 97 L (98-107) mmol/L Carbon Dioxide 33 H (22-30) mmol/L BUN 23 H (7-17) mg/dL Glucose 114 H (74-99) mg/dL Total Protein 5.8 L (6.3-8.2) g/dL Albumin 3.2 L (3.5-5.0) g/dL Microbiology - Last 24 Hours (Table) 07/02/18 21:45 Blood Culture - Preliminary Blood No Growth after 48 hours 07/04/18 07:45 Sputum Culture - Final Sputum Assessment and Plan Assessment: 1. Right upper lobe healthcare acquired pneumonia. Continue broad-spectrum antibiotics. Patient remains on Zosyn and Levaquin. Pulmonary services have been consulted. CT of the chest completed showing no evidence of pulmonary embolism. Patient remains on DuoNeb, Symbicort, Solu-Medrol, Zosyn and Levaquin 2. Early sepsis related to above with very high leukocytosis. WBC improving to 15.5. Blood culture currently negative. Sputum culture pending 3. 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 Prednisone has been discontinued and Solu-Medrol 40 every 8 has been added. 4. Recent T8 fracture. Patient has a back brace that she has been wearing. 5. Hypertension hypertensive cardiovascular disease. Patient remains on Lopressor 6. Chronic persistent asthma. Continue DuoNeb breathing treatment 7. Generalized anxiety disorder. Continue Zoloft, Ablify and Xanax 8. History of Hodgkin's lymphoma back in 70s is status post XRT 9. Severe morbid obesity GI prophylaxis Protonix DVT prophylaxis heparin I performed an examination of the patient and discussed their management with the Nurse Practitioner. I have reviewed the Nurse Practitioner's notes and agree with the documented findings and plan of care
[2018-07-05 16:32] LABS: Glucose,Whole Blood 110 mg/dL (75-99)
[2018-07-05] MEDS: INSULIN ASPART 100 UNIT/ML 1 ML 10 ML VIAL SQ SCH ×2 (16:56→21:45)
[2018-07-05] MEDS: SERTRALINE 100 MG TAB PO SCH (16:56)
[2018-07-05] MEDS: ATORVASTATIN 20 MG TAB PO SCH (20:22)
[2018-07-05] MEDS: MONTELUKAST 10 MG TAB PO SCH (20:22)
[2018-07-05] MEDS: LEVOFLOXACIN 750 MG TAB PO SCH (20:22)
[2018-07-05 20:50] LABS: Glucose,Whole Blood 152 mg/dL (75-99)
[2018-07-06] MEDS: ALPRAZolam 0.5 MG TAB PO PRN ×3 (04:49→18:24)
[2018-07-06] MEDS: HYDROcodone/APAP 7.5-325MG 1 EACH TAB PO PRN ×3 (04:49→18:24)
[2018-07-06 05:55] LABS: Glucose,Whole Blood 143 mg/dL (75-99)
[2018-07-06 06:13] LABS: Anisocytosis Slight; Basophils % (A) 0 %; Eosinophils % (A) 0 %; HCT 29.3 % (34.0-46.0); HGB 9.2 gm/dL (11.4-16.0); Hypochromasia Slight; Lymphocytes # (A) 0.8 k/uL (1.0-4.8); Lymphocytes % (A) 9 %; MCH 25.3 pg (25.0-35.0); MCHC 31.2 g/dL (31.0-37.0); Mean Platelet Volume 6.6; Microcytosis Slight; Monocytes # (A) 0.3 k/uL (0-1.0); Monocytes % (A) 4 %; Neutrophils # (A) 7.9 k/uL (1.3-7.7); Neutrophils % (A) 86 %; Platelet Count 473 k/uL (150-450); RBC 3.62 m/uL (3.80-5.40); RDW 19.7 % (11.5-15.5); WBC 9.1 k/uL (3.8-10.6)
[2018-07-06 06:23] LABS: Albumin 3.2 g/dL (3.5-5.0); Calcium 9.2 mg/dL (8.4-10.2); Potassium 4.2 mmol/L (3.5-5.1); Total Bilirubin 0.3 mg/dL (0.2-1.3); Total Protein 5.6 g/dL (6.3-8.2)
[2018-07-06] MEDS: LEVOTHYROXINE 100 MCG TAB PO SCH (07:04)
[2018-07-06] MEDS: FERROUS SULFATE 325 MG TAB PO SCH ×2 (07:04→16:05)
[2018-07-06] MEDS: INSULIN ASPART 100 UNIT/ML 1 ML 10 ML VIAL SQ SCH ×4 (07:04→21:01)
[2018-07-06] MEDS: SYMBICORT 160-4.5 MCG INHALER INHALATION SCH ×2 (08:07→19:30)
[2018-07-06] MEDS: IPRATROPIUM-ALBUTEROL 3 ML NEB INHALATION SCH ×4 (08:07→19:30)
[2018-07-06] MEDS: methylPREDNISolone SOD SUCCI 40 MG/ML 1 ML VIAL IV SCH ×3 (08:23→23:03)
[2018-07-06] MEDS: PIPERACILLIN-TAZOBACTAM 3.375 GM in DEXTROSE/WATER 1 50ML.BAG IVPB SCH ×3 (08:23→23:03)
[2018-07-06] MEDS: FUROSEMIDE 20 MG TAB PO SCH ×2 (08:24→16:04)
[2018-07-06] MEDS: HEPARIN SODIUM,PORCINE 5,000 UNIT/ML 1 ML VIAL SQ SCH ×2 (08:24→21:13)
[2018-07-06] MEDS: SPIRONOLACTONE 25 MG TAB PO SCH ×2 (08:24→16:05)
[2018-07-06] MEDS: PANTOPRAZOLE 40 MG TABLET PO SCH (08:25)
[2018-07-06] MEDS: ARIPiprazole 2 MG TAB PO SCH (08:25)
[2018-07-06] MEDS: METOPROLOL SUCCINATE (ER) 25 MG TAB.ER.24H PO SCH (08:25)
[2018-07-06] MEDS: DOCUSATE 100 MG CAP PO PRN (08:34)
--- NOTE | 2018-07-06 08:50 | P.CNOR ---
History of Present Illness - HPI Consult date: 07/06/18 Consult reason: back pain (Thoracic back pain with known T8 compression fracture ) History of present illness: The patient is a very pleasant 63-year-old female with long medical history and respiratory issues. She was admitted in regards to recurrent pneumonia on this visit. We're involved in the case in regards to follow up in terms of her T8 compression fracture. Patient was seen and evaluated last week in the hospital with her for the fracture as well. Patient says that she is still having some pain at the middle of her thoracic spine which radiates around her ribs bilaterally. She was able to receive a brace last week a TLSO spinal med brace and says that the brace does help with some of her pain. She is not having any pains in other areas. She is not having any changes in her neurologic Status of her upper extremities or her lower extremities Review of Systems As per HPI. She denies any nausea or vomiting. She denies any changes in her bowel bladder function Past Medical History Past Medical History: Asthma, Cancer, Heart Failure, GERD/Reflux, Hyperlipidemia , Hypertension, Sleep Apnea/CPAP/BIPAP, Thyroid Disorder Additional Past Medical History / Comment(s): 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 CHF, echo showed EF 50-55%, anemia, multiple thoracic compression fractures with T8 being worse, herpes simplex type I L buttock which was tx and pt states it is gone now. 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 History of Any Multi-Drug Resistant Organisms: None Reported Past Surgical History: Adenoidectomy, Breast Surgery, Section, Hysterectomy, Orthopedic Surgery, Tonsillectomy Additional Past Surgical History / Comment(s): Spleenectomy, laparotomy, colonoscopy, EGD, bilateral 5th toe surgery for spurs, L breast mastectomy with breast reconstruction, bronchoscopy/lung bx, rt kidney partial nephrectomy, bilateral cataract removals with lens implants. Past Anesthesia/Blood Transfusion Reactions: No Reported Reaction Smoking Status: Former smoker - Past Family History Mother Family Medical History: Osteoarthritis (OA) Additional Family Medical History / Comment(s): glaucoma Brother(s) Additional Family Medical History / Comment(s): MS Father Family Medical History: Myocardial Infarction ([place]) Additional Family Medical History / Comment(s): age 70 -mi Medications and Allergies Home Medications Medication Instructions Recorded Confirmed Type Budesonide-Formot 160-4.5 Mcg 2 puff INHALATION RT-BID 10/05/16 07/03/18 History [Symbicort 160-4.5 Mcg Inhaler] Levothyroxine Sodium [Synthroid] 100 mcg PO DAILY 10/05/16 07/03/18 History Metoprolol Succinate (ER) [Toprol 25 mg PO DAILY 10/05/16 07/03/18 History XL] Montelukast [Singulair] 10 mg PO HS 10/05/16 07/03/18 History Sertraline [Zoloft] 200 mg PO AC-SUPPER 10/05/16 07/03/18 History Simvastatin [Zocor] 40 mg PO HS 10/05/16 07/03/18 History ARIPiprazole [Abilify] 2 mg PO DAILY 04/06/17 07/03/18 History Albuterol Sulfate [Proair Hfa] 2 puff INHALATION RT-Q6H PRN 04/06/17 07/03/18 History Acyclovir 400 mg PO DAILY PRN 05/13/17 07/03/18 History Acyclovir [Zovirax] 1 applic TOPICAL 5XD PRN 05/13/17 07/03/18 History Cetirizine HCl [Zyrtec] 10 mg PO HS PRN 05/13/17 07/03/18 History Ranitidine HCl [Zantac] 150 mg PO HS PRN 05/13/17 07/03/18 History ALPRAZolam [Xanax] 0.5 mg PO TID PRN 06/19/18 07/03/18 History Ergocalciferol [Vitamin D2 50,000 unit PO SA 06/19/18 07/03/18 History (DRISDOL)] Omeprazole 40 mg PO BID 06/19/18 07/03/18 History Ferrous Sulfate [Iron (65 MG 325 mg PO BID #60 tab 06/27/18 07/03/18 Rx Elemental)] Furosemide [Lasix] 40 mg PO BID #60 tab 06/27/18 07/03/18 Rx Nystatin 100,000 Unit/ml Susp 500,000 unit PO QID #24 cup 06/27/18 07/03/18 Rx [Mycostatin Oral Susp] Spironolactone [Aldactone] 25 mg PO BID@0900,1600 #60 tab 06/27/18 07/03/18 Rx predniSONE 20 mg PO DAILY #30 tab 06/27/18 07/03/18 Rx HYDROcodone/APAP 7.5-325MG [[place] 1 tab PO Q6H PRN 07/03/18 07/03/18 History 7.5-325] Allergies Allergy/AdvReac Type Severity Reaction Status Date / Time No Known Allergies Allergy Verified 07/03/18 07:27 Physical Examination Osteopathic Statement: *. No significant issues noted on an osteopathic structural exam other than those noted in the History and Physical/Consult. - L Spine: dermatomal strength & reflexes bilateral Strength: hip flexion: 5/5 (At her thoracic spine she has minimal tenderness to palpation over the midline. There is no open wounds lacerations or abrasions. She is able to sit up out of in bed and sit up at bedside in standard without too much problem. She has good motion in her upper extremities and her lower extremity. Her neck is nontender to palpation range of motion. She has +5 muscle strength in bilateral upper and lower extremities. Abdomen soft nontender.) Results I reviewed a computed tomography scan in terms of her drastic spine. There is a subacute compression fracture at T8 approximately 50-60% height loss. There are some bony changes due to fracture at that level. There are some chronic degenerative changes at her lower lumbar spine with degenerative disc disease and there is some chronic wedging at T6 and T7 The fracture at T8 appears subacute. - Labs Labs: Abnormal Lab Results - Last 24 Hours (Table) 07/05/18 07/05/18 07/06/18 Range/Units 16:30 20:48 05:34 RBC 3.62 L (3.80-5.40) m/uL Hgb 9.2 L (11.4-16.0) gm/dL Hct 29.3 L (34.0-46.0) % RDW 19.7 H (11.5-15.5) % Plt Count 473 H (150-450) k/uL Neutrophils # 7.9 H (1.3-7.7) k/uL Lymphocytes # 0.8 L (1.0-4.8) k/uL Carbon Dioxide (22-30) mmol/L BUN (7-17) mg/dL Glucose (74-99) mg/dL POC Glucose (mg/dL) 110 H 152 H (75-99) mg/dL Total Protein (6.3-8.2) g/dL Albumin (3.5-5.0) g/dL 07/06/18 07/06/18 Range/Units 05:34 05:54 RBC (3.80-5.40) m/uL Hgb (11.4-16.0) gm/dL Hct (34.0-46.0) % RDW (11.5-15.5) % Plt Count (150-450) k/uL Neutrophils # (1.3-7.7) k/uL Lymphocytes # (1.0-4.8) k/uL Carbon Dioxide 33 H (22-30) mmol/L BUN 29 H (7-17) mg/dL Glucose 125 H (74-99) mg/dL POC Glucose (mg/dL) 143 H (75-99) mg/dL Total Protein 5.6 L (6.3-8.2) g/dL Albumin 3.2 L (3.5-5.0) g/dL Microbiology - Last 24 Hours (Table) 07/02/18 21:45 Blood Culture - Preliminary Blood No Growth after 72 hours 07/04/18 07:45 Gram Stain - Final Sputum Sputum Culture - Final H & H 07/02/18 07/04/18 07/05/18 Range/Units 20:55 05:39 05:25 Hgb 10.7 L 9.3 L 9.4 L (11.4-16.0) gm/dL Hct 34.5 29.0 L 29.6 L (34.0-46.0) % 07/06/18 Range/Units 05:34 Hgb 9.2 L (11.4-16.0) gm/dL Hct 29.3 L (34.0-46.0) % Coagulation 07/02/18 Range/Units 20:55 INR 1.0 (<1.2) Result Diagrams: 07/06/18 05:34 07/06/18 05:34 Assessment and Plan Assessment: T thoracic compression fracture, osteoporotic subacute Plan: The patient has multiple medical issues and is currently admitted regards to her pneumonia. She is continuing her medical management this regard and appears to be stabilizing appropriately. She'll continue medical management There is a T8 compression fracture. This appears to be subacute as was diagnosed at her last visit. There is no significant change in the fracture itself at this point and I do not see any new fractures. She has been treated conservatively and has received a TLSO brace that she should wear when she is out of bed and upright. She does not use a brace when she is in bed or bathing. She seems to be tolerating the brace well and the pain is subsiding as this continues to heal. She understands that this may take a couple of months for her to heal solidly and she understands this issue. We discussed the possibility of vertebral kyphoplasty with cement augmentation but the patient would like to avoid any surgical procedure if possible and I think this is quite reasonable given her medical issues as well as her good response to conservative management. It is okay for her to try to mobilize with physical therapy with the brace on. From an orthopedic spine standpoint be okay for her to be followed up on an outpatient basis in approximately 2-3 weeks.
--- NOTE | 2018-07-06 10:48 | P.PN ---
Subjective Progress Note Date: 07/06/18 63-year-old female was seen evaluated examined in the emergency department subsequently on the selective care for increased symptoms of cough congestion shortness of breath started a few days ago patient recently has a history of T8 fracture required one week in stay in the hospital predominantly for pain management patient was discharged however 3-4 day after discharge started having increasing shortness of breath and cough and breathing difficulty was brought back into emergency department due to worsening of her respiratory symptoms since early this morning around 6 AM. The patient states that she has been feeling somewhat short of breath also having cough with some yellowish sputum and then this evening just before coming in noted that she felt hot and seemed she had a fever though they did not find a temperature. 07/04/2018 patient is currently resting in bed stating she does feels a bit better. Patient's appointment that she is having a nonproductive cough. Denies chest pain or shortness of breath. Patient remains on 3 L nasal cannula. Denies nausea vomiting or diarrhea. Awaiting pulmonary consult. 07/05/2018 patient is currently sitting up in bed. Does state she has some improvement from yesterday. Patient followed by Dr. Salcedo per pulmonary. Solu -Medrol 40 every 8 has been added. Patient denies chest pain or shortness breath at this time. On 07/06/2018 patient is currently sitting up in bed A and O x3. Patient remains on Solu-Medrol 40 every 8 Zosyn, Levaquin and DuoNeb. White blood cell improving at 9.1. Blood culture remains negative. Dr. Johnson was consulted due to old T8 fracture. Patient to continue to wear back brace when out of bed. Patient denies chest pain or shortness breath. Denies nausea vomiting or diarrhea. Denies any urinary symptoms Objective - Vital Signs Vital signs: Vital Signs Temp 97.7 F 07/06/18 08:00 Pulse 96 07/06/18 08:18 Resp 18 07/06/18 08:00 BP 113/62 07/06/18 08:00 Pulse Ox 98 07/06/18 08:07 Intake & Output 07/05/18 07/06/18 07/06/18 18:59 06:59 18:59 Intake Total 1270 290 260 Balance 1270 290 260 Weight 91.2 kg Intake: IV 120 50 20 Invasive Line 1 10 Invasive Line 2 20 10 Piperacillin-Tazobactam 3 100 50 .375 gm In Dextrose/Water 1 50ml.bag @ 12.5 mls/hr IVPB Q8HR [facility] Rx#: [id number] Oral 1150 240 240 Other: Voiding Method Toilet Toilet Toilet # Voids 200 3 - Exam Head normocephalic Neck supple Lungs bilateral crackles Heart regular rate and rhythm S1-S2, no rub or gallop Abdomen is soft nontender nondistended positive bowel sounds no hepatosplenomegaly Extremities no edema Neuro alert and orientated to 3 - Labs CBC & Chem 7: 07/06/18 05:34 07/06/18 05:34 Labs: Abnormal Lab Results - Last 24 Hours (Table) 07/05/18 07/05/18 07/06/18 Range/Units 16:30 20:48 05:34 RBC 3.62 L (3.80-5.40) m/uL Hgb 9.2 L (11.4-16.0) gm/dL Hct 29.3 L (34.0-46.0) % RDW 19.7 H (11.5-15.5) % Plt Count 473 H (150-450) k/uL Neutrophils # 7.9 H (1.3-7.7) k/uL Lymphocytes # 0.8 L (1.0-4.8) k/uL Carbon Dioxide (22-30) mmol/L BUN (7-17) mg/dL Glucose (74-99) mg/dL POC Glucose (mg/dL) 110 H 152 H (75-99) mg/dL Total Protein (6.3-8.2) g/dL Albumin (3.5-5.0) g/dL 07/06/18 07/06/18 Range/Units 05:34 05:54 RBC (3.80-5.40) m/uL Hgb (11.4-16.0) gm/dL Hct (34.0-46.0) % RDW (11.5-15.5) % Plt Count (150-450) k/uL Neutrophils # (1.3-7.7) k/uL Lymphocytes # (1.0-4.8) k/uL Carbon Dioxide 33 H (22-30) mmol/L BUN 29 H (7-17) mg/dL Glucose 125 H (74-99) mg/dL POC Glucose (mg/dL) 143 H (75-99) mg/dL Total Protein 5.6 L (6.3-8.2) g/dL Albumin 3.2 L (3.5-5.0) g/dL Microbiology - Last 24 Hours (Table) 07/02/18 21:45 Blood Culture - Preliminary Blood No Growth after 72 hours 07/04/18 07:45 Gram Stain - Final Sputum Sputum Culture - Final Assessment and Plan Assessment: 1. Right upper lobe healthcare acquired pneumonia. Continue broad-spectrum antibiotics. Patient remains on Zosyn and Levaquin. Pulmonary services have been consulted. CT of the chest completed showing no evidence of pulmonary embolism. Patient remains on DuoNeb, Symbicort, Solu-Medrol, Zosyn and Levaquin 2. Early sepsis related to above with very high leukocytosis. WBC improving to 15.5. Blood culture currently negative. Sputum culture pending. White blood cell 9.1 3. 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 Prednisone has been discontinued and Solu-Medrol 40 every 8 has been added. 4. Recent T8 fracture. Patient has a back brace that she has been wearing. Dr. Johnson consulted for ortho services. Per or so patient should wear back brace when she is out of bed and upright, no surgical intervention at this time patient to continue physical therapy with brace on and to follow-up outpatient in approximately 2-3 weeks. 5. Hypertension hypertensive cardiovascular disease. Patient remains on Lopressor 6. Chronic persistent asthma. Continue DuoNeb breathing treatment 7. Generalized anxiety disorder. Continue Zoloft, Ablify and Xanax 8. History of Hodgkin's lymphoma back in 70s is status post XRT 9. Severe morbid obesity 10. Iron deficiency anemia. hemoglobin 9.2. Continue with ferrous sulfate GI prophylaxis Protonix DVT prophylaxis heparin I performed an examination of the patient and discussed their management with the Nurse Practitioner. I have reviewed the Nurse Practitioner's notes and agree with the documented findings and plan of care
[2018-07-06 11:58] LABS: Glucose,Whole Blood 146 mg/dL (75-99)
--- NOTE | 2018-07-06 12:17 | P.PN ---
<Prachi Jones - Last Filed: 07/06/18 12:10> Subjective Progress Note Date: 07/06/18 Principal diagnosis: Acute on chronic hypoxic respiratory failure secondary to acute multifocal healthcare acquired pneumonia. This is a very pleasant 63-year-old female patient who follows with Dr. Naqvi as her primary care physician. 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 She follows with Dr. Valadez in our office. Most recent FEV1 value in April 2018 was 60% of predicted. She is maintained on Symbicort, Singulair and albuterol. She was recently hospitalized here for an exacerbation of diastolic systolic congestive heart failure and back pain and was found to have a compression fracture of T8 and was followed by orthopedics. A CT angiogram was performed and revealed no pulmonary embolism and just few scattered punctate lung nodules and small left pleural effusion. She was discharged home on 06/27/2018. She presented here again 07/02/2018 with complaints of increasing shortness of breath, cough and congestion. CT angiogram again ruled out pulmonary embolism however there is now, multifocal pneumonia and narrowing of the left lower lobe subsegmental bronchi. She has remained afebrile. Maintaining O2 saturations in the 90s on 3 L/m per nasal cannula. Hemodynamically stable. The culture reveals no growth to date. Initial white count 30.1. Current white count 15.5. ProBNP 4940. Troponin 0.216, 0.194. Creatinine 0.76. She's been initiated on DuoNeb inhalations 4 times a day and when necessary, Symbicort, Singulair. She is maintained on her prednisone at 20 mg daily. She's been initiated on Zosyn and Levaquin. Currently on Lasix 40 mg twice a day. She is seen today in consultation on the selective care unit. She is awake and alert in no acute distress. Resting fairly comfortably in bed. She states she is breathing easier today as compared to yesterday. No worsening shortness of breath, cough or congestion. She is utilizing the BiPAP at night 11/01 in 28% FiO2. The patient is seen again today 07/16/2018 in follow-up on the selective care unit. She is currently awake and alert in no acute distress. She is breathing quite a bit easier today as compared to the previous days. Nearly back to her baseline. She is maintaining good O2 saturations in the upper 90s on 3 L/m per nasal cannula. She has been afebrile. Hemodynamically stable. Sputum and blood cultures reveal no growth. White count 9.1. Hemoglobin 9.2. Creatinine 0.97. She remains on Zosyn and Levaquin. Continued on DuoNeb inhalations, Symbicort, Solu-Medrol. Objective - Vital Signs Vital signs: Vital Signs Temp 97.7 F 07/06/18 08:00 Pulse 96 07/06/18 11:53 Resp 18 07/06/18 08:00 BP 113/62 07/06/18 08:00 Pulse Ox 98 07/06/18 08:07 Intake & Output 07/05/18 07/06/18 07/06/18 18:59 06:59 18:59 Intake Total 1270 290 260 Balance 1270 290 260 Weight 91.2 kg Intake: IV 120 50 20 Invasive Line 1 10 Invasive Line 2 20 10 Piperacillin-Tazobactam 3 100 50 .375 gm In Dextrose/Water 1 50ml.bag @ 12.5 mls/hr IVPB Q8HR [facility] Rx#: [id number] Oral 1150 240 240 Other: Voiding Method Toilet Toilet Toilet # Voids 200 3 - Exam - Constitutional General appearance: morbidly obese, no acute distress - EENT Eyes: EOMI, PERRLA ENT: hearing grossly normal Ears: bilateral: normal - Neck Neck: normal ROM Carotids: bilateral: upstroke normal Thyroid: bilateral: normal size - Respiratory Respiratory: left: rales, bilateral: rhonchi - Cardiovascular Rhythm: regular Heart sounds: normal: S1, S2 - Gastrointestinal General gastrointestinal: normal bowel sounds - Integumentary Integumentary: normal - Neurologic Neurologic: CNII-XII intact - Musculoskeletal Musculoskeletal: generalized weakness - Psychiatric Psychiatric: A&O x's 3, appropriate affect, intact judgment & insight - Labs CBC & Chem 7: 07/06/18 05:34 07/06/18 05:34 Labs: Abnormal Lab Results - Last 24 Hours (Table) 07/05/18 07/05/18 07/06/18 Range/Units 16:30 20:48 05:34 RBC 3.62 L (3.80-5.40) m/uL Hgb 9.2 L (11.4-16.0) gm/dL Hct 29.3 L (34.0-46.0) % RDW 19.7 H (11.5-15.5) % Plt Count 473 H (150-450) k/uL Neutrophils # 7.9 H (1.3-7.7) k/uL Lymphocytes # 0.8 L (1.0-4.8) k/uL Carbon Dioxide (22-30) mmol/L BUN (7-17) mg/dL Glucose (74-99) mg/dL POC Glucose (mg/dL) 110 H 152 H (75-99) mg/dL Total Protein (6.3-8.2) g/dL Albumin (3.5-5.0) g/dL 07/06/18 07/06/18 07/06/18 Range/Units 05:34 05:54 11:53 RBC (3.80-5.40) m/uL Hgb (11.4-16.0) gm/dL Hct (34.0-46.0) % RDW (11.5-15.5) % Plt Count (150-450) k/uL Neutrophils # (1.3-7.7) k/uL Lymphocytes # (1.0-4.8) k/uL Carbon Dioxide 33 H (22-30) mmol/L BUN 29 H (7-17) mg/dL Glucose 125 H (74-99) mg/dL POC Glucose (mg/dL) 143 H 146 H (75-99) mg/dL Total Protein 5.6 L (6.3-8.2) g/dL Albumin 3.2 L (3.5-5.0) g/dL Microbiology - Last 24 Hours (Table) 07/02/18 21:45 Blood Culture - Preliminary Blood No Growth after 72 hours 07/04/18 07:45 Gram Stain - Final Sputum Sputum Culture - Final Assessment and Plan Assessment: Impression: #1 Acute on chronic hypoxic respiratory failure secondary to an acute multifocal pneumonia, healthcare acquired. #2 Bronchiolitis obliterans organizing pneumonia (BOOP), biopsy proven. #3 Acute exacerbation of moderate persistent asthma secondary to above. #4 Obstructive sleep apnea utilizing CPAP in the outpatient setting. #5 History of diastolic congestive heart failure. #6 Hypertension. #7 Hyperlipidemia. #8 Gastroesophageal reflux disease. 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 #10 History of Hodgkin's lymphoma status post chemoradiation. #11 History of breast cancer status post mastectomy. #12 History of kidney cancer status post right nephrectomy. History of anxiety/ depression. Plan: The patient was seen and evaluated by Dr. Jones. Chest x-ray, CAT scans and labs all reviewed and compared to recent admission. There were findings suggestive of healthcare acquired pneumonia. Improving. We will repeat a chest x-ray in the a.m. We'll continue with current antibiotics in form of Zosyn and Levaquin. We'll continue with DuoNeb inhalations, Symbicort, IV Solu- Medrol. We will increase her activity as tolerated. We'll continue to follow and make further recommendations based on her clinical status. I, the cosigning physician, performed a history & physical examination of the patient. Lungs sounds with few scattered rhonchi, crackles in the left posterior base. Maintaining good O2 saturations in the 90s on 3 L/m per nasal cannula. I discussed the assessment and plan of care with my nurse practitioner , Prachi Jones. I attest to the above note as dictated by her. <Victor Manuel Jones - Last Filed: 07/06/18 13:41> Objective - Vital Signs Vital signs: Vital Signs Temp 98.0 F 07/06/18 12:00 Pulse 97 07/06/18 12:00 Resp 18 07/06/18 12:00 BP 105/66 07/06/18 12:00 Pulse Ox 96 07/06/18 12:00 Intake & Output 07/05/18 07/06/18 07/06/18 18:59 06:59 18:59 Intake Total 1270 290 570 Balance 1270 290 570 Weight 91.2 kg Intake: IV 120 50 90 Invasive Line 1 20 Invasive Line 2 20 20 Piperacillin-Tazobactam 3 100 50 50 .375 gm In Dextrose/Water 1 50ml.bag @ 12.5 mls/hr IVPB Q8HR [facility] Rx#: [id number] Oral 1150 240 480 Other: Voiding Method Toilet Toilet Toilet # Voids 200 3 - Labs CBC & Chem 7: 07/06/18 05:34 07/06/18 05:34 Labs: Abnormal Lab Results - Last 24 Hours (Table) 07/05/18 07/05/18 07/06/18 Range/Units 16:30 20:48 05:34 RBC 3.62 L (3.80-5.40) m/uL Hgb 9.2 L (11.4-16.0) gm/dL Hct 29.3 L (34.0-46.0) % RDW 19.7 H (11.5-15.5) % Plt Count 473 H (150-450) k/uL Neutrophils # 7.9 H (1.3-7.7) k/uL Lymphocytes # 0.8 L (1.0-4.8) k/uL Carbon Dioxide (22-30) mmol/L BUN (7-17) mg/dL Glucose (74-99) mg/dL POC Glucose (mg/dL) 110 H 152 H (75-99) mg/dL Total Protein (6.3-8.2) g/dL Albumin (3.5-5.0) g/dL 07/06/18 07/06/18 07/06/18 Range/Units 05:34 05:54 11:53 RBC (3.80-5.40) m/uL Hgb (11.4-16.0) gm/dL Hct (34.0-46.0) % RDW (11.5-15.5) % Plt Count (150-450) k/uL Neutrophils # (1.3-7.7) k/uL Lymphocytes # (1.0-4.8) k/uL Carbon Dioxide 33 H (22-30) mmol/L BUN 29 H (7-17) mg/dL Glucose 125 H (74-99) mg/dL POC Glucose (mg/dL) 143 H 146 H (75-99) mg/dL Total Protein 5.6 L (6.3-8.2) g/dL Albumin 3.2 L (3.5-5.0) g/dL Microbiology - Last 24 Hours (Table) 07/02/18 21:45 Blood Culture - Preliminary Blood No Growth after 72 hours 07/04/18 07:45 Gram Stain - Final Sputum Sputum Culture - Final Assessment and Plan Assessment: This is a joint evaluation along with the nurse practitioner. The patient is improving. The patient has developed bilateral pneumonia on top of chronic bronchiolitis obliterans with organizing pneumonia. Currently on IV antibiotics and the patient can a combination of Levaquin and Zosyn. The patient is improving. The patient is less short of breath. White cell count is dropped and normalized. We'll start tapering steroids as of tomorrow. Repeat chest x-ray in the morning. We'll continue to follow. Her pain is under good control. She has chronic back pain related to compression fraction of the T-spine on multiple locations, worse at the level of T8. The patient has also has been steroid dependent at a dose of 30 mg on outpatient basis which was given to her for treatment of bronchodilators obliterans with organizing pneumonia.
--- NOTE | 2018-07-06 13:26 | XR ---
EXAMINATION TYPE: XR chest 2V DATE OF EXAM: 07/06/2018 COMPARISON: Chest x-ray from [address] chest from 3 days ago. HISTORY: Pneumonia progress study. TECHNIQUE: Frontal and lateral views of the chest are obtained. FINDINGS: Osseous structures remain demineralized. Advanced compression fracture roughly T8 level is redemonstrated. Surgical clips left upper quadrant are again seen. There is low lung volumes are red emonstrated. Prominent calcified lymph node left suprahilar region is again seen. There is chronic pa renchymal change with lateral right upper lung opacity remaining present. Left lung multifocal opacit y is improved. No large pleural effusion or pneumothorax is seen. Cardiac silhouette size remains enl arged with atherosclerotic thoracic aorta. IMPRESSION: Chronic changes and cardiomegaly with improved diffuse central left lung infiltrates, st able right lateral upper lung atelectasis and/or infiltrate.
[2018-07-06] MEDS ORDERED: guaiFENesin 600 MG TABLET.ER PO PRN (13:30)
[2018-07-06] MEDS: SERTRALINE 100 MG TAB PO SCH (16:06)
[2018-07-06 16:50] LABS: Glucose,Whole Blood 101 mg/dL (75-99)
[2018-07-06 20:55] LABS: Glucose,Whole Blood 119 mg/dL (75-99)
[2018-07-06] MEDS: MONTELUKAST 10 MG TAB PO SCH (21:13)
[2018-07-06] MEDS: ATORVASTATIN 20 MG TAB PO SCH (21:13)
[2018-07-06] MEDS: LEVOFLOXACIN 750 MG TAB PO SCH (21:13)
[2018-07-07] MEDS: HYDROcodone/APAP 7.5-325MG 1 EACH TAB PO PRN ×4 (00:31→18:42)
[2018-07-07] MEDS: ALPRAZolam 0.5 MG TAB PO PRN ×3 (04:10→18:40)
[2018-07-07 05:47] LABS: Glucose,Whole Blood 122 mg/dL (75-99)
[2018-07-07] MEDS: INSULIN ASPART 100 UNIT/ML 1 ML 10 ML VIAL SQ SCH ×5 (06:18→20:56)
[2018-07-07 06:47] LABS: Anisocytosis Slight; Basophils % (A) 0 %; Eosinophils % (A) 0 %; HCT 29.7 % (34.0-46.0); HGB 9.4 gm/dL (11.4-16.0); Hypochromasia Slight; Lymphocytes # (A) 1.1 k/uL (1.0-4.8); Lymphocytes % (A) 10 %; MCH 25.4 pg (25.0-35.0); MCHC 31.5 g/dL (31.0-37.0); MCV 80.5 fL (80.0-100.0); Microcytosis Slight; Monocytes # (A) 0.8 k/uL (0-1.0); Monocytes % (A) 7 %; Neutrophils # (A) 9.3 k/uL (1.3-7.7); Neutrophils % (A) 81 %; Platelet Count 496 k/uL (150-450); RBC 3.69 m/uL (3.80-5.40); RDW 19.8 % (11.5-15.5); WBC 11.5 k/uL (3.8-10.6)
[2018-07-07] MEDS: PANTOPRAZOLE 40 MG TABLET PO SCH (06:47)
[2018-07-07] MEDS: FERROUS SULFATE 325 MG TAB PO SCH ×2 (06:47→17:45)
[2018-07-07] MEDS: LEVOTHYROXINE 100 MCG TAB PO SCH (06:47)
[2018-07-07 06:55] LABS: Albumin 3.2 g/dL (3.5-5.0); Calcium 9.4 mg/dL (8.4-10.2); Potassium 4.5 mmol/L (3.5-5.1); Total Bilirubin 0.3 mg/dL (0.2-1.3); Total Protein 5.6 g/dL (6.3-8.2)
[2018-07-07] MEDS: IPRATROPIUM-ALBUTEROL 3 ML NEB INHALATION SCH ×4 (07:51→19:20)
[2018-07-07] MEDS: SYMBICORT 160-4.5 MCG INHALER INHALATION SCH ×2 (07:51→19:20)
[2018-07-07] MEDS: HEPARIN SODIUM,PORCINE 5,000 UNIT/ML 1 ML VIAL SQ SCH ×2 (10:08→20:40)
[2018-07-07] MEDS: ARIPiprazole 2 MG TAB PO SCH (10:08)
[2018-07-07] MEDS: FUROSEMIDE 20 MG TAB PO SCH ×2 (10:08→17:45)
[2018-07-07] MEDS: methylPREDNISolone SOD SUCCI 40 MG/ML 1 ML VIAL IV SCH ×3 (10:08→23:23)
[2018-07-07] MEDS: SPIRONOLACTONE 25 MG TAB PO SCH ×2 (10:08→17:46)
[2018-07-07] MEDS: METOPROLOL SUCCINATE (ER) 25 MG TAB.ER.24H PO SCH (10:09)
[2018-07-07] MEDS: PIPERACILLIN-TAZOBACTAM 3.375 GM in DEXTROSE/WATER 1 50ML.BAG IVPB SCH ×3 (10:15→23:23)
--- NOTE | 2018-07-07 11:04 | P.PN ---
Subjective Progress Note Date: 07/07/18 63-year-old female was seen evaluated examined in the emergency department subsequently on the selective care for increased symptoms of cough congestion shortness of breath started a few days ago patient recently has a history of T8 fracture required one week in stay in the hospital predominantly for pain management patient was discharged however 3-4 day after discharge started having increasing shortness of breath and cough and breathing difficulty was brought back into emergency department due to worsening of her respiratory symptoms since early this morning around 6 AM. The patient states that she has been feeling somewhat short of breath also having cough with some yellowish sputum and then this evening just before coming in noted that she felt hot and seemed she had a fever though they did not find a temperature. 07/04/2018 patient is currently resting in bed stating she does feels a bit better. Patient's appointment that she is having a nonproductive cough. Denies chest pain or shortness of breath. Patient remains on 3 L nasal cannula. Denies nausea vomiting or diarrhea. Awaiting pulmonary consult. 07/05/2018 patient is currently sitting up in bed. Does state she has some improvement from yesterday. Patient followed by Dr. Salcedo per pulmonary. Solu -Medrol 40 every 8 has been added. Patient denies chest pain or shortness breath at this time. On 07/06/2018 patient is currently sitting up in bed A and O x3. Patient remains on Solu-Medrol 40 every 8 Zosyn, Levaquin and DuoNeb. White blood cell improving at 9.1. Blood culture remains negative. Dr. Johnson was consulted due to old T8 fracture. Patient to continue to wear back brace when out of bed. Patient denies chest pain or shortness breath. Denies nausea vomiting or diarrhea. Denies any urinary symptoms On 07/07/2018 patient is currently sitting up in bed. Patient did state that when she got up to the bathroom she did feel short of breath when she was not wearing her oxygen. Remains on 2 L nasal cannula. Patient remains on Zosyn and Levaquin. Patient denies chest pain. Denies nausea vomiting or diarrhea. Denies any urinary symptoms Objective - Vital Signs Vital signs: Vital Signs Temp 97.7 F 07/07/18 08:45 Pulse 97 07/07/18 08:45 Resp 18 07/07/18 08:45 BP 112/59 07/07/18 08:45 Pulse Ox 99 07/07/18 08:45 Intake & Output 07/06/18 07/07/18 07/07/18 18:59 06:59 18:59 Intake Total 1400 290 190 Output Total 900 Balance 500 290 190 Weight 91.3 kg Intake: IV 120 50 10 Invasive Line 1 20 Invasive Line 2 30 Invasive Line 3 20 10 Piperacillin-Tazobactam 3 50 50 .375 gm In Dextrose/Water 1 50ml.bag @ 12.5 mls/hr IVPB Q8HR [facility] Rx#: [id number] Oral 1280 240 180 Output: Urine 900 Other: Voiding Method Toilet Toilet Toilet # Voids 3 4 - Exam Head normocephalic Neck supple Lungs bilateral crackles Heart regular rate and rhythm S1-S2, no rub or gallop Abdomen is soft nontender nondistended positive bowel sounds no hepatosplenomegaly Extremities no edema Neuro alert and orientated to 3 - Labs CBC & Chem 7: 07/07/18 05:47 07/07/18 05:47 Labs: Abnormal Lab Results - Last 24 Hours (Table) 07/06/18 07/06/18 07/06/18 Range/Units 11:53 16:48 20:54 WBC (3.8-10.6) k/uL RBC (3.80-5.40) m/uL Hgb (11.4-16.0) gm/dL Hct (34.0-46.0) % RDW (11.5-15.5) % Plt Count (150-450) k/uL Neutrophils # (1.3-7.7) k/uL Carbon Dioxide (22-30) mmol/L BUN (7-17) mg/dL Creatinine (0.52-1.04) mg/dL Glucose (74-99) mg/dL POC Glucose (mg/dL) 146 H 101 H 119 H (75-99) mg/dL Total Protein (6.3-8.2) g/dL Albumin (3.5-5.0) g/dL 07/07/18 07/07/18 07/07/18 Range/Units 05:45 05:47 05:47 WBC 11.5 H (3.8-10.6) k/uL RBC 3.69 L (3.80-5.40) m/uL Hgb 9.4 L (11.4-16.0) gm/dL Hct 29.7 L (34.0-46.0) % RDW 19.8 H (11.5-15.5) % Plt Count 496 H (150-450) k/uL Neutrophils # 9.3 H (1.3-7.7) k/uL Carbon Dioxide 34 H (22-30) mmol/L BUN 34 H (7-17) mg/dL Creatinine 1.06 H (0.52-1.04) mg/dL Glucose 109 H (74-99) mg/dL POC Glucose (mg/dL) 122 H (75-99) mg/dL Total Protein 5.6 L (6.3-8.2) g/dL Albumin 3.2 L (3.5-5.0) g/dL Microbiology - Last 24 Hours (Table) 07/02/18 21:45 Blood Culture - Preliminary Blood No Growth after 96 hours Assessment and Plan Assessment: 1. Right upper lobe healthcare acquired pneumonia. Continue broad-spectrum antibiotics. Patient remains on Zosyn and Levaquin. Pulmonary services have been consulted. CT of the chest completed showing no evidence of pulmonary embolism. Patient remains on DuoNeb, Symbicort, Solu-Medrol, Zosyn and Levaquin 2. Early sepsis related to above with very high leukocytosis. WBC improving to 15.5. Blood culture currently negative. Sputum culture pending. White blood cell 11.5 . Initial sputum contaminated. Repeat sputum has been sent 3. 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 Prednisone has been discontinued and Solu-Medrol 40 every 8 has been added. 4. Recent T8 fracture. Patient has a back brace that she has been wearing. Dr. Johnson consulted for ortho services. Per or so patient should wear back brace when she is out of bed and upright, no surgical intervention at this time patient to continue physical therapy with brace on and to follow-up outpatient in approximately 2-3 weeks. 5. Hypertension hypertensive cardiovascular disease. Patient remains on Lopressor 6. Chronic persistent asthma. Continue DuoNeb breathing treatment 7. Generalized anxiety disorder. Continue Zoloft, Ablify and Xanax 8. History of Hodgkin's lymphoma back in 70s is status post XRT 9. Severe morbid obesity 10. Iron deficiency anemia. hemoglobin 9.2. Continue with ferrous sulfate GI prophylaxis Protonix DVT prophylaxis heparin I performed an examination of the patient and discussed their management with the Nurse Practitioner. I have reviewed the Nurse Practitioner's notes and agree with the documented findings and plan of care
[2018-07-07 11:53] LABS: Glucose,Whole Blood 100 mg/dL (75-99)
[2018-07-07] MEDS: DOCUSATE 100 MG CAP PO PRN (12:25)
--- NOTE | 2018-07-07 13:21 | P.PN ---
Subjective Progress Note Date: 07/07/18 Principal diagnosis: Acute on chronic hypoxic respiratory failure secondary to acute multifocal healthcare acquired pneumonia. This is a very pleasant 63-year-old female patient who follows with Dr. Naqiv as her primary care physician. 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 She follows with Dr. Valadez in our office. Most recent FEV1 value in April 2018 was 60% of predicted. She is maintained on Symbicort, Singulair and albuterol. She was recently hospitalized here for an exacerbation of diastolic systolic congestive heart failure and back pain and was found to have a compression fracture of T8 and was followed by orthopedics. A CT angiogram was performed and revealed no pulmonary embolism and just few scattered punctate lung nodules and small left pleural effusion. She was discharged home on 06/27/2018. She presented here again 07/02/2018 with complaints of increasing shortness of breath, cough and congestion. CT angiogram again ruled out pulmonary embolism however there is now, multifocal pneumonia and narrowing of the left lower lobe subsegmental bronchi. She has remained afebrile. Maintaining O2 saturations in the 90s on 3 L/m per nasal cannula. Hemodynamically stable. The culture reveals no growth to date. Initial white count 30.1. Current white count 15.5. ProBNP 4940. Troponin 0.216, 0.194. Creatinine 0.76. She's been initiated on DuoNeb inhalations 4 times a day and when necessary, Symbicort, Singulair. She is maintained on her prednisone at 20 mg daily. She's been initiated on Zosyn and Levaquin. Currently on Lasix 40 mg twice a day. She is seen today in consultation on the selective care unit. She is awake and alert in no acute distress. Resting fairly comfortably in bed. She states she is breathing easier today as compared to yesterday. No worsening shortness of breath, cough or congestion. She is utilizing the BiPAP at night 12/ in 28% FiO2. The patient is seen again today 07/06/2018 in follow-up on the selective care unit. She is currently awake and alert in no acute distress. She is breathing quite a bit easier today as compared to the previous days. Nearly back to her baseline. She is maintaining good O2 saturations in the upper 90s on 3 L/m per nasal cannula. She has been afebrile. Hemodynamically stable. Sputum and blood cultures reveal no growth. White count 9.1. Hemoglobin 9.2. Creatinine 0.97. She remains on Zosyn and Levaquin. Continued on DuoNeb inhalations, Symbicort, Solu-Medrol. The patient is seen again today 07/07/2018 in follow-up on the selective care unit. She is currently resting quite comfortably in bed. She is comfortable at rest. She states when she is up to the bathroom and back if she moves too fast she does get quite dyspneic on minimal exertion. She is currently maintaining good O2 saturations up to 99% on 2 L/m per nasal cannula. She's been afebrile. Hemodynamically stable. Sputum and blood cultures reveal no growth. White count 11.5. Hemoglobin 9.4. Creatinine 1.06. Objective - Vital Signs Vital signs: Vital Signs Temp 97.3 F L 07/07/18 12:00 Pulse 97 07/07/18 12:17 Resp 18 07/07/18 12:17 BP 127/64 07/07/18 12:00 Pulse Ox 99 07/07/18 12:00 Intake & Output 07/06/18 07/07/18 07/07/18 18:59 06:59 18:59 Intake Total 1400 290 440 Output Total 900 300 Balance 500 290 140 Weight 91.3 kg Intake: IV 120 50 60 Invasive Line 1 20 Invasive Line 2 30 Invasive Line 3 20 10 Piperacillin-Tazobactam 3 50 50 50 .375 gm In Dextrose/Water 1 50ml.bag @ 12.5 mls/hr IVPB Q8HR [facility] Rx#: [id number] Oral 1280 240 380 Output: Urine 900 300 Other: Voiding Method Toilet Toilet Toilet # Voids 3 4 1 - Exam - Constitutional General appearance: morbidly obese, no acute distress - EENT Eyes: EOMI, PERRLA ENT: hearing grossly normal Ears: bilateral: normal - Neck Neck: normal ROM Carotids: bilateral: upstroke normal Thyroid: bilateral: normal size - Respiratory Respiratory: left: rales, bilateral: rhonchi - Cardiovascular Rhythm: regular Heart sounds: normal: S1, S2 - Gastrointestinal General gastrointestinal: normal bowel sounds - Integumentary Integumentary: normal - Neurologic Neurologic: CNII-XII intact - Musculoskeletal Musculoskeletal: generalized weakness - Psychiatric Psychiatric: A&O x's 3, appropriate affect, intact judgment & insight - Labs CBC & Chem 7: 07/07/18 05:47 07/07/18 05:47 Labs: Abnormal Lab Results - Last 24 Hours (Table) 07/06/18 07/06/18 07/07/18 Range/Units 16:48 20:54 05:45 WBC (3.8-10.6) k/uL RBC (3.80-5.40) m/uL Hgb (11.4-16.0) gm/dL Hct (34.0-46.0) % RDW (11.5-15.5) % Plt Count (150-450) k/uL Neutrophils # (1.3-7.7) k/uL Carbon Dioxide (22-30) mmol/L BUN (7-17) mg/dL Creatinine (0.52-1.04) mg/dL Glucose (74-99) mg/dL POC Glucose (mg/dL) 101 H 119 H 122 H (75-99) mg/dL Total Protein (6.3-8.2) g/dL Albumin (3.5-5.0) g/dL 07/07/18 07/07/18 07/07/18 Range/Units 05:47 05:47 11:40 WBC 11.5 H (3.8-10.6) k/uL RBC 3.69 L (3.80-5.40) m/uL Hgb 9.4 L (11.4-16.0) gm/dL Hct 29.7 L (34.0-46.0) % RDW 19.8 H (11.5-15.5) % Plt Count 496 H (150-450) k/uL Neutrophils # 9.3 H (1.3-7.7) k/uL Carbon Dioxide 34 H (22-30) mmol/L BUN 34 H (7-17) mg/dL Creatinine 1.06 H (0.52-1.04) mg/dL Glucose 109 H (74-99) mg/dL POC Glucose (mg/dL) 100 H (75-99) mg/dL Total Protein 5.6 L (6.3-8.2) g/dL Albumin 3.2 L (3.5-5.0) g/dL Microbiology - Last 24 Hours (Table) 07/07/18 08:15 Sputum Culture - Preliminary Sputum 07/02/18 21:45 Blood Culture - Preliminary Blood No Growth after 96 hours Assessment and Plan Assessment: Impression: #1 Acute on chronic hypoxic respiratory failure secondary to an acute multifocal pneumonia, healthcare acquired. #2 Bronchiolitis obliterans organizing pneumonia (BOOP), biopsy proven. #3 Acute exacerbation of moderate persistent asthma secondary to above. #4 Obstructive sleep apnea utilizing CPAP in the outpatient setting. #5 History of diastolic congestive heart failure. #6 Hypertension. #7 Hyperlipidemia. #8 Gastroesophageal reflux disease. 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 #10 History of Hodgkin's lymphoma status post chemoradiation. #11 History of breast cancer status post mastectomy. #12 History of kidney cancer status post right nephrectomy. History of anxiety/ depression. Plan: The patient was seen and evaluated by Dr. Jones. We will repeat a chest x- ray in the a.m. We'll continue with current antibiotics in form of Zosyn and Levaquin. We'll continue with DuoNeb inhalations, Symbicort, IV Solu-Medrol. We will increase her activity as tolerated. We'll continue to follow and make further recommendations based on her clinical status. I, the cosigning physician, performed a history & physical examination of the patient. Lungs sounds with few scattered rhonchi, crackles in the left posterior base. Maintaining good O2 saturations in the 90s on 3 L/m per nasal cannula. I discussed the assessment and plan of care with my nurse practitioner , Prachi Jones. I attest to the above note as dictated by her.
[2018-07-07 14:20] VITALS: BMI 36.8
[2018-07-07] MEDS ORDERED: LACTULOSE 20 GM/30 ML CUP PO ONE (15:51)
[2018-07-07 16:53] LABS: Glucose,Whole Blood 124 mg/dL (75-99)
[2018-07-07] MEDS: SERTRALINE 100 MG TAB PO SCH (17:45)
[2018-07-07] MEDS: ATORVASTATIN 20 MG TAB PO SCH (20:40)
[2018-07-07] MEDS: MONTELUKAST 10 MG TAB PO SCH (20:40)
[2018-07-07 20:50] LABS: Glucose,Whole Blood 159 mg/dL (75-99)
[2018-07-08] MEDS: HYDROcodone/APAP 7.5-325MG 1 EACH TAB PO PRN ×4 (01:34→20:52)
[2018-07-08 06:23] LABS: Anisocytosis Slight; Basophils % (A) 0 %; Eosinophils % (A) 0 %; HCT 30.4 % (34.0-46.0); HGB 9.5 gm/dL (11.4-16.0); Hypochromasia Slight; Lymphocytes # (A) 1.1 k/uL (1.0-4.8); Lymphocytes % (A) 9 %; MCH 25.1 pg (25.0-35.0); MCHC 31.3 g/dL (31.0-37.0); MCV 80.1 fL (80.0-100.0); Mean Platelet Volume 6.5; Microcytosis Slight; Monocytes # (A) 0.7 k/uL (0-1.0); Monocytes % (A) 6 %; Neutrophils # (A) 9.8 k/uL (1.3-7.7); Neutrophils % (A) 83 %; Platelet Count 488 k/uL (150-450); RBC 3.79 m/uL (3.80-5.40); RDW 19.8 % (11.5-15.5); WBC 11.8 k/uL (3.8-10.6)
[2018-07-08 06:27] LABS: Glucose,Whole Blood 137 mg/dL (75-99)
[2018-07-08] MEDS: LEVOTHYROXINE 100 MCG TAB PO SCH (06:29)
[2018-07-08] MEDS: INSULIN ASPART 100 UNIT/ML 1 ML 10 ML VIAL SQ SCH ×4 (06:29→20:51)
[2018-07-08] MEDS: PANTOPRAZOLE 40 MG TABLET PO SCH (06:30)
[2018-07-08] MEDS: FERROUS SULFATE 325 MG TAB PO SCH ×2 (06:30→16:28)
[2018-07-08 06:38] LABS: Albumin 3.4 g/dL (3.5-5.0); Calcium 9.7 mg/dL (8.4-10.2); Potassium 4.2 mmol/L (3.5-5.1); Total Bilirubin 0.3 mg/dL (0.2-1.3); Total Protein 5.8 g/dL (6.3-8.2)
[2018-07-08] MEDS: SYMBICORT 160-4.5 MCG INHALER INHALATION SCH ×2 (08:00→20:53)
[2018-07-08] MEDS: IPRATROPIUM-ALBUTEROL 3 ML NEB INHALATION SCH ×4 (08:00→20:53)
--- NOTE | 2018-07-08 08:10 | XR ---
EXAMINATION TYPE: XR chest 1V portable DATE OF EXAM: 07/08/2018 HISTORY: pneumonia. REFERENCE: Previous study dated 07/06/2018. FINDINGS: Heart size is mildly prominent. There are calcified aortopulmonary window lymph nodes. Vasc ular congestion has largely resolved. Interstitial change has resolved. Pleural spaces are clear. IMPRESSION: 1. CARDIOMEGALY. 2. IMPROVING CHANGES OF PULMONARY EDEMA.
[2018-07-08] MEDS: ARIPiprazole 2 MG TAB PO SCH (08:25)
[2018-07-08] MEDS: METOPROLOL SUCCINATE (ER) 25 MG TAB.ER.24H PO SCH (08:25)
[2018-07-08] MEDS: methylPREDNISolone SOD SUCCI 40 MG/ML 1 ML VIAL IV SCH ×2 (08:25→21:39)
[2018-07-08] MEDS: SPIRONOLACTONE 25 MG TAB PO SCH ×2 (08:25→16:28)
[2018-07-08] MEDS: HEPARIN SODIUM,PORCINE 5,000 UNIT/ML 1 ML VIAL SQ SCH ×2 (08:25→20:57)
[2018-07-08] MEDS: FUROSEMIDE 20 MG TAB PO SCH ×2 (08:25→16:28)
[2018-07-08] MEDS: ALPRAZolam 0.5 MG TAB PO PRN ×3 (08:39→23:32)
[2018-07-08] MEDS: PIPERACILLIN-TAZOBACTAM 3.375 GM in DEXTROSE/WATER 1 50ML.BAG IVPB SCH ×3 (08:41→23:30)
[2018-07-08 11:24] LABS: Glucose,Whole Blood 117 mg/dL (75-99)
--- NOTE | 2018-07-08 12:39 | P.PN ---
Subjective Progress Note Date: 07/08/18 Principal diagnosis: Acute on chronic hypoxic respiratory failure secondary to acute multifocal healthcare acquired pneumonia This is a very pleasant 63-year-old female patient who follows with Dr. Naqvi as her primary care physician. 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 She follows with Dr. Valadez in our office. Most recent FEV1 value in April 2018 was 60% of predicted. She is maintained on Symbicort, Singulair and albuterol. She was recently hospitalized here for an exacerbation of diastolic systolic congestive heart failure and back pain and was found to have a compression fracture of T8 and was followed by orthopedics. A CT angiogram was performed and revealed no pulmonary embolism and just few scattered punctate lung nodules and small left pleural effusion. She was discharged home on 06/27/2018. She presented here again 07/02/2018 with complaints of increasing shortness of breath, cough and congestion. CT angiogram again ruled out pulmonary embolism however there is now, multifocal pneumonia and narrowing of the left lower lobe subsegmental bronchi. She has remained afebrile. Maintaining O2 saturations in the 90s on 3 L/m per nasal cannula. Hemodynamically stable. The culture reveals no growth to date. Initial white count 30.1. Current white count 15.5. ProBNP 4940. Troponin 0.216, 0.194. Creatinine 0.76. She's been initiated on DuoNeb inhalations 4 times a day and when necessary, Symbicort, Singulair. She is maintained on her prednisone at 20 mg daily. She's been initiated on Zosyn and Levaquin. Currently on Lasix 40 mg twice a day. She is seen today in consultation on the selective care unit. She is awake and alert in no acute distress. Resting fairly comfortably in bed. She states she is breathing easier today as compared to yesterday. No worsening shortness of breath, cough or congestion. She is utilizing the BiPAP at night 12/5 in 28% FiO2. The patient is seen again today 07/06/2018 in follow-up on the selective care unit. She is currently awake and alert in no acute distress. She is breathing quite a bit easier today as compared to the previous days. Nearly back to her baseline. She is maintaining good O2 saturations in the upper 90s on 3 L/m per nasal cannula. She has been afebrile. Hemodynamically stable. Sputum and blood cultures reveal no growth. White count 9.1. Hemoglobin 9.2. Creatinine 0.97. She remains on Zosyn and Levaquin. Continued on DuoNeb inhalations, Symbicort, Solu-Medrol. The patient is seen again today 07/07/2018 in follow-up on the selective care unit. She is currently resting quite comfortably in bed. She is comfortable at rest. She states when she is up to the bathroom and back if she moves too fast she does get quite dyspneic on minimal exertion. She is currently maintaining good O2 saturations up to 99% on 2 L/m per nasal cannula. She's been afebrile. Hemodynamically stable. Sputum and blood cultures reveal no growth. White count 11.5. Hemoglobin 9.4. Creatinine 1.06. On 07/08/2018 patient is seen in follow-up on selective care unit. She states her breathing is improving, although she still gets dyspneic with walking to the bathroom. She is on her baseline FiO2 of 2 L and her pulse ox is 98%, she is afebrile, hemodynamically stable, lung sounds are positive for scattered rhonchi, but no wheezes. She remains on Zosyn and Levaquin., she is coughing up some dark beige colored sputum, small amount, compliant with her incentive spirometer, she is able to achieve 1000 01/09/1950 ML on it today. Sinus rhythm. Chest x-ray shows improving changes of pulmonary edema. Patient has been transitioned to oral Lasix of 40 mg twice daily. Increase activity as tolerated, patient is stable, and improving. We will decrease the IV Solu- Medrol to 40 mg every 12 hours, and potentially transition patient to oral prednisone starting tomorrow. Objective - Vital Signs Vital signs: Vital Signs Temp 97.2 F L 07/08/18 08:00 Pulse 92 07/08/18 08:21 Resp 18 07/08/18 08:00 BP 105/56 07/08/18 08:00 Pulse Ox 98 07/08/18 08:00 Intake & Output 07/07/18 07/08/18 07/08/18 18:59 06:59 18:59 Intake Total 1040 50 240 Output Total 300 400 Balance 740 -350 240 Weight 91.3 kg 93.1 kg Intake: IV 60 50 Invasive Line 3 10 Piperacillin-Tazobactam 3 50 50 .375 gm In Dextrose/Water 1 50ml.bag @ 12.5 mls/hr IVPB Q8HR [facility] Rx#: [id number] Oral 980 240 Output: Urine 300 400 Other: Voiding Method Toilet Toilet Toilet # Voids 1 2 - Exam - Constitutional General appearance: morbidly obese, no acute distress - EENT Eyes: EOMI, PERRLA ENT: hearing grossly normal Ears: bilateral: normal - Neck Neck: normal ROM Carotids: bilateral: upstroke normal Thyroid: bilateral: normal size - Respiratory Respiratory: left: rales, bilateral: rhonchi - Cardiovascular Rhythm: regular Heart sounds: normal: S1, S2 - Gastrointestinal General gastrointestinal: normal bowel sounds - Integumentary Integumentary: normal - Neurologic Neurologic: CNII-XII intact - Musculoskeletal Musculoskeletal: generalized weakness - Psychiatric Psychiatric: A&O x's 3, appropriate affect, intact judgment & insight - Labs CBC & Chem 7: 07/08/18 05:48 07/08/18 05:48 Labs: Abnormal Lab Results - Last 24 Hours (Table) 07/07/18 07/07/18 07/07/18 Range/Units 11:40 16:39 20:45 WBC (3.8-10.6) k/uL RBC (3.80-5.40) m/uL Hgb (11.4-16.0) gm/dL Hct (34.0-46.0) % RDW (11.5-15.5) % Plt Count (150-450) k/uL Neutrophils # (1.3-7.7) k/uL Chloride (98-107) mmol/L Carbon Dioxide (22-30) mmol/L BUN (7-17) mg/dL Glucose (74-99) mg/dL POC Glucose (mg/dL) 100 H 124 H 159 H (75-99) mg/dL Total Protein (6.3-8.2) g/dL Albumin (3.5-5.0) g/dL 07/08/18 07/08/18 07/08/18 Range/Units 05:48 05:48 06:22 WBC 11.8 H (3.8-10.6) k/uL RBC 3.79 L (3.80-5.40) m/uL Hgb 9.5 L (11.4-16.0) gm/dL Hct 30.4 L (34.0-46.0) % RDW 19.8 H (11.5-15.5) % Plt Count 488 H (150-450) k/uL Neutrophils # 9.8 H (1.3-7.7) k/uL Chloride 94 L (98-107) mmol/L Carbon Dioxide 37 H (22-30) mmol/L BUN 38 H (7-17) mg/dL Glucose 122 H (74-99) mg/dL POC Glucose (mg/dL) 137 H (75-99) mg/dL Total Protein 5.8 L (6.3-8.2) g/dL Albumin 3.4 L (3.5-5.0) g/dL Microbiology - Last 24 Hours (Table) 07/07/18 08:15 Gram Stain - Preliminary Sputum Sputum Culture - Preliminary 07/02/18 21:45 Blood Culture - Preliminary Blood No Growth after 120 hours Assessment and Plan Plan: Assessment #1 Acute on chronic hypoxic respiratory failure secondary to an acute multifocal pneumonia, healthcare acquired. Sputum blood cultures remain negative to date #2 Bronchiolitis obliterans organizing pneumonia (BOOP), biopsy proven. #3 Acute exacerbation of moderate persistent asthma secondary to above. #4 Obstructive sleep apnea utilizing CPAP in the outpatient setting. #5 History of diastolic congestive heart failure. #6 Hypertension. #7 Hyperlipidemia. #8 Gastroesophageal reflux disease. 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 #10 History of Hodgkin's lymphoma status post chemoradiation. #11 History of breast cancer status post mastectomy. #12 History of kidney cancer status post right nephrectomy. History of anxiety/ depression. Plan: Continue current antibiotic coverage, microbiology results remain negative to date. Patient is afebrile, vital signs are stable, increase activity as tolerated, encourage deep breathing and coughing, the IV Solu-Medrol to 40 mg every 12 hours, we'll potentially transition him to oral prednisone tomorrow. Chest x-ray is improving. I performed a history & physical examination of the patient and discussed their management with my nurse practitioner, Esther Yusuf. I reviewed the nurse practitioner's note and agree with the documented findings and plan of care. Lung sounds are positive for diffuse wheezes throughout the lung doyle. The findings and the impression was discussed with the patient. I attest to the documentation by the nurse practitioner.
--- NOTE | 2018-07-08 15:14 | P.PN ---
Subjective Progress Note Date: 07/08/18 63-year-old female was seen evaluated examined in the emergency department subsequently on the selective care for increased symptoms of cough congestion shortness of breath started a few days ago patient recently has a history of T8 fracture required one week in stay in the hospital predominantly for pain management patient was discharged however 3-4 day after discharge started having increasing shortness of breath and cough and breathing difficulty was brought back into emergency department due to worsening of her respiratory symptoms since early this morning around 6 AM. The patient states that she has been feeling somewhat short of breath also having cough with some yellowish sputum and then this evening just before coming in noted that she felt hot and seemed she had a fever though they did not find a temperature. 07/04/2018 patient is currently resting in bed stating she does feels a bit better. Patient's appointment that she is having a nonproductive cough. Denies chest pain or shortness of breath. Patient remains on 3 L nasal cannula. Denies nausea vomiting or diarrhea. Awaiting pulmonary consult. 07/05/2018 patient is currently sitting up in bed. Does state she has some improvement from yesterday. Patient followed by Dr. Salcedo per pulmonary. Solu -Medrol 40 every 8 has been added. Patient denies chest pain or shortness breath at this time. On 07/06/2018 patient is currently sitting up in bed A and O x3. Patient remains on Solu-Medrol 40 every 8 Zosyn, Levaquin and DuoNeb. White blood cell improving at 9.1. Blood culture remains negative. Dr. Johnson was consulted due to old T8 fracture. Patient to continue to wear back brace when out of bed. Patient denies chest pain or shortness breath. Denies nausea vomiting or diarrhea. Denies any urinary symptoms On 07/07/2018 patient is currently sitting up in bed. Patient did state that when she got up to the bathroom she did feel short of breath when she was not wearing her oxygen. Remains on 2 L nasal cannula. Patient remains on Zosyn and Levaquin. Patient denies chest pain. Denies nausea vomiting or diarrhea. Denies any urinary symptoms On 07/08/2018 patient was seen and examined on telemetry 6 floor she is alert and oriented 3 she is complaining of occasional cough she is complaining of shortness of breath with any activity otherwise she denies any complaints at this time she remains on IV antibiotic Objective - Vital Signs Vital signs: Vital Signs Temp 97.2 F L 07/08/18 08:00 Pulse 92 07/08/18 11:29 Resp 18 07/08/18 08:00 BP 105/56 07/08/18 08:00 Pulse Ox 98 07/08/18 08:00 Intake & Output 07/07/18 07/08/18 07/08/18 18:59 06:59 18:59 Intake Total 1040 50 240 Output Total 300 400 Balance 740 -350 240 Weight 91.3 kg 93.1 kg Intake: IV 60 50 Invasive Line 3 10 Piperacillin-Tazobactam 3 50 50 .375 gm In Dextrose/Water 1 50ml.bag @ 12.5 mls/hr IVPB Q8HR [facility] Rx#: [id number] Oral 980 240 Output: Urine 300 400 Other: Voiding Method Toilet Toilet Toilet # Voids 1 2 - Exam Head normocephalic and atraumatic Neck supple no JVD no goiter Lungs bilateral crackles no wheezing Heart regular rate and rhythm S1-S2, no rub or gallop Abdomen is soft nontender nondistended positive bowel sounds no hepatosplenomegaly Extremities no edema no cyanosis or clubbing Neuro alert and orientated to 3 - Labs CBC & Chem 7: 07/08/18 05:48 07/08/18 05:48 Labs: Abnormal Lab Results - Last 24 Hours (Table) 07/07/18 07/07/18 07/08/18 Range/Units 16:39 20:45 05:48 WBC 11.8 H (3.8-10.6) k/uL RBC 3.79 L (3.80-5.40) m/uL Hgb 9.5 L (11.4-16.0) gm/dL Hct 30.4 L (34.0-46.0) % RDW 19.8 H (11.5-15.5) % Plt Count 488 H (150-450) k/uL Neutrophils # 9.8 H (1.3-7.7) k/uL Chloride (98-107) mmol/L Carbon Dioxide (22-30) mmol/L BUN (7-17) mg/dL Glucose (74-99) mg/dL POC Glucose (mg/dL) 124 H 159 H (75-99) mg/dL Total Protein (6.3-8.2) g/dL Albumin (3.5-5.0) g/dL 07/08/18 07/08/18 07/08/18 Range/Units 05:48 06:22 11:07 WBC (3.8-10.6) k/uL RBC (3.80-5.40) m/uL Hgb (11.4-16.0) gm/dL Hct (34.0-46.0) % RDW (11.5-15.5) % Plt Count (150-450) k/uL Neutrophils # (1.3-7.7) k/uL Chloride 94 L (98-107) mmol/L Carbon Dioxide 37 H (22-30) mmol/L BUN 38 H (7-17) mg/dL Glucose 122 H (74-99) mg/dL POC Glucose (mg/dL) 137 H 117 H (75-99) mg/dL Total Protein 5.8 L (6.3-8.2) g/dL Albumin 3.4 L (3.5-5.0) g/dL Microbiology - Last 24 Hours (Table) 07/07/18 08:15 Gram Stain - Preliminary Sputum Sputum Culture - Preliminary 07/02/18 21:45 Blood Culture - Preliminary Blood No Growth after 120 hours
[2018-07-08] MEDS: SERTRALINE 100 MG TAB PO SCH (17:32)
[2018-07-08 17:36] LABS: Glucose,Whole Blood 132 mg/dL (75-99)
[2018-07-08 20:42] LABS: Glucose,Whole Blood 123 mg/dL (75-99)
[2018-07-08] MEDS ORDERED: LEVOFLOXACIN 750 MG TAB PO SCH (21:00)
[2018-07-08] MEDS: ATORVASTATIN 20 MG TAB PO SCH (21:39)
[2018-07-08] MEDS: MONTELUKAST 10 MG TAB PO SCH (21:39)
[2018-07-08 22:30] VITALS: RESP 18
[2018-07-09] MEDS: HYDROcodone/APAP 7.5-325MG 1 EACH TAB PO PRN ×2 (05:37→11:45)
[2018-07-09 05:45] VITALS: BP 119/56; TEMP 97.8
[2018-07-09] MEDS: LEVOTHYROXINE 100 MCG TAB PO SCH (06:16)
[2018-07-09] MEDS: IPRATROPIUM-ALBUTEROL 3 ML NEB INHALATION SCH ×2 (07:11→11:04)
[2018-07-09] MEDS: SYMBICORT 160-4.5 MCG INHALER INHALATION SCH (07:11)
[2018-07-09 07:19] LABS: Glucose,Whole Blood 109 mg/dL (75-99)
[2018-07-09] MEDS: INSULIN ASPART 100 UNIT/ML 1 ML 10 ML VIAL SQ SCH ×2 (07:36→12:14)
[2018-07-09] MEDS: ALPRAZolam 0.5 MG TAB PO PRN ×2 (07:41→15:27)
[2018-07-09] MEDS: FUROSEMIDE 20 MG TAB PO SCH (07:42)
[2018-07-09] MEDS: methylPREDNISolone SOD SUCCI 40 MG/ML 1 ML VIAL IV SCH (07:42)
[2018-07-09] MEDS: FERROUS SULFATE 325 MG TAB PO SCH (07:42)
[2018-07-09] MEDS: SPIRONOLACTONE 25 MG TAB PO SCH (07:42)
[2018-07-09] MEDS: PANTOPRAZOLE 40 MG TABLET PO SCH (07:43)
[2018-07-09] MEDS: PIPERACILLIN-TAZOBACTAM 3.375 GM in DEXTROSE/WATER 1 50ML.BAG IVPB SCH (07:43)
[2018-07-09] MEDS: ARIPiprazole 2 MG TAB PO SCH (07:43)
[2018-07-09] MEDS: METOPROLOL SUCCINATE (ER) 25 MG TAB.ER.24H PO SCH (07:43)
[2018-07-09] MEDS: HEPARIN SODIUM,PORCINE 5,000 UNIT/ML 1 ML VIAL SQ SCH (07:44)
[2018-07-09 07:47] LABS: Anisocytosis Slight; Basophils # (A) 0.1 k/uL (0-0.2); Basophils % (A) 0 %; Eosinophils % (A) 0 %; HGB 10.5 gm/dL (11.4-16.0); Hypochromasia Slight; Lymphocytes # (A) 1.5 k/uL (1.0-4.8); Lymphocytes % (A) 10 %; MCH 25.6 pg (25.0-35.0); MCHC 31.9 g/dL (31.0-37.0); MCV 80.4 fL (80.0-100.0); Mean Platelet Volume 6.9; Microcytosis Slight; Monocytes # (A) 0.9 k/uL (0-1.0); Monocytes % (A) 6 %; Neutrophils # (A) 11.9 k/uL (1.3-7.7); Neutrophils % (A) 82 %; Platelet Count 517 k/uL (150-450); RDW 19.7 % (11.5-15.5); WBC 14.6 k/uL (3.8-10.6)
[2018-07-09 08:07] LABS: Albumin 3.6 g/dL (3.5-5.0); Calcium 9.9 mg/dL (8.4-10.2); Potassium 4.7 mmol/L (3.5-5.1); Total Bilirubin 0.4 mg/dL (0.2-1.3)
[2018-07-09 11:07] VITALS: PULSE 108
[2018-07-09 12:09] LABS: Glucose,Whole Blood 117 mg/dL (75-99)
--- NOTE | 2018-07-09 13:40 | P.DS ---
Providers Date of admission: 07/02/18 22:16 Expected date of discharge: 07/09/18 Attending physician: Michelle Naqvi Consults: 07/03/18 13:17 Consult Physician Routine Consulting Provider: Walt Valadez Consult Reason/Comments: BOOP Do you want consulting provider notified?: Yes Primary care physician: Michelle Driss [facility] Course: Diagnoses on discharge: 1. Right upper lobe healthcare acquired pneumonia. Continue broad-spectrum antibiotics. Patient remains on Zosyn and Levaquin. Pulmonary services have been consulted. CT of the chest completed showing no evidence of pulmonary embolism. Patient remains on DuoNeb, Symbicort, Solu-Medrol, Zosyn and Levaquin 2. Early sepsis related to above with very high leukocytosis. WBC improving to 15.5. Blood culture currently negative. Sputum culture pending. White blood cell 11.5 . Initial sputum contaminated. Repeat sputum has been sent 3. 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 Prednisone has been discontinued and Solu-Medrol 40 every 8 has been added. 4. Recent T8 fracture. Patient has a back brace that she has been wearing. Dr. Johnson consulted for ortho services. Per or so patient should wear back brace when she is out of bed and upright, no surgical intervention at this time patient to continue physical therapy with brace on and to follow-up outpatient in approximately 2-3 weeks. 5. Hypertension hypertensive cardiovascular disease. Patient remains on Lopressor 6. Chronic persistent asthma. Continue DuoNeb breathing treatment 7. Generalized anxiety disorder. Continue Zoloft, Ablify and Xanax 8. History of Hodgkin's lymphoma back in 70s is status post XRT 9. Severe morbid obesity 10. Iron deficiency anemia. hemoglobin 9.2. Continue with ferrous sulfate Hospital course: 63-year-old female was seen evaluated examined in the emergency department subsequently on the selective care for increased symptoms of cough congestion shortness of breath started a few days ago patient recently has a history of T8 fracture required one week in stay in the hospital predominantly for pain management patient was discharged however 3-4 day after discharge started having increasing shortness of breath and cough and breathing difficulty was brought back into emergency department due to worsening of her respiratory symptoms since early this morning around 6 AM. The patient states that she has been feeling somewhat short of breath also having cough with some yellowish sputum and then this evening just before coming in noted that she felt hot and seemed she had a fever though they did not find a temperature. 07/04/2018 patient is currently resting in bed stating she does feels a bit better. Patient's appointment that she is having a nonproductive cough. Denies chest pain or shortness of breath. Patient remains on 3 L nasal cannula. Denies nausea vomiting or diarrhea. Awaiting pulmonary consult. 07/05/2018 patient is currently sitting up in bed. Does state she has some improvement from yesterday. Patient followed by Dr. Salcedo per pulmonary. Solu -Medrol 40 every 8 has been added. Patient denies chest pain or shortness breath at this time. On 07/06/2018 patient is currently sitting up in bed A and O x3. Patient remains on Solu-Medrol 40 every 8 Zosyn, Levaquin and DuoNeb. White blood cell improving at 9.1. Blood culture remains negative. Dr. oJhnson was consulted due to old T8 fracture. Patient to continue to wear back brace when out of bed. Patient denies chest pain or shortness breath. Denies nausea vomiting or diarrhea. Denies any urinary symptoms On 07/07/2018 patient is currently sitting up in bed. Patient did state that when she got up to the bathroom she did feel short of breath when she was not wearing her oxygen. Remains on 2 L nasal cannula. Patient remains on Zosyn and Levaquin. Patient denies chest pain. Denies nausea vomiting or diarrhea. Denies any urinary symptoms On 07/08/2018 patient was seen and examined on telemetry 6 floor she is alert and oriented 3 she is complaining of occasional cough she is complaining of shortness of breath with any activity otherwise she denies any complaints at this time she remains on IV antibiotic 04/08/2018 patient is feeling better she is alert and oriented 3 she was evaluated by Dr. Jones executive personal assistant and with cleared for discharge recommendation was to continue with oral Levaquin 750 mg every 48 hours for 7 more doses and to continue with oral prednisone 40 mg daily for 5 days then down to 20 mg and to continue on 20 mg after agent will follow up with me in the office within 1 week she will also follow-up with Dr. Valadez on her executive personal assistant within 1 week Patient Condition at Discharge: Poor Plan - Discharge Summary Discharge Rx Participant: No New Discharge Prescriptions: New Docusate [Colace] 100 mg PO DAILY PRN cap PRN Reason: Constipation guaiFENesin [Mucinex] 600 mg PO Q12HR PRN tablet.er PRN Reason: Cough Ipratropium-Albuterol Nebulize [Duoneb 0.5 mg-3 mg/3 ml Soln] 3 ml INHALATION RT-QID ampul.neb Levofloxacin [Levaquin] 750 mg PO Q48H tab Continue Budesonide-Formot 160-4.5 Mcg [Symbicort 160-4.5 Mcg Inhaler] 2 puff INHALATION RT-BID Simvastatin [Zocor] 40 mg PO HS Sertraline [Zoloft] 200 mg PO AC-SUPPER Montelukast [Singulair] 10 mg PO HS Metoprolol Succinate (ER) [Toprol XL] 25 mg PO DAILY Levothyroxine Sodium [Synthroid] 100 mcg PO DAILY Albuterol Sulfate [Proair Hfa] 2 puff INHALATION RT-Q6H PRN PRN Reason: Shortness Of Breath ARIPiprazole [Abilify] 2 mg PO DAILY Ranitidine HCl [Zantac] 150 mg PO HS PRN PRN Reason: Heartburn Acyclovir [Zovirax] 1 applic TOPICAL 5XD PRN PRN Reason: Cold Sores Acyclovir 400 mg PO DAILY PRN PRN Reason: Cold Sores Cetirizine HCl [Zyrtec] 10 mg PO HS PRN PRN Reason: Allergy Symptoms ALPRAZolam [Xanax] 0.5 mg PO TID PRN PRN Reason: Anxiety Omeprazole 40 mg PO BID Ergocalciferol [Vitamin D2 (DRISDOL)] 50,000 unit PO SA Ferrous Sulfate [Iron (65 MG Elemental)] 325 mg PO BID #60 tab Furosemide [Lasix] 40 mg PO BID #60 tab Nystatin 100,000 Unit/ml Susp [Mycostatin Oral Susp] 500,000 unit PO QID #24 cup predniSONE 20 mg PO DAILY #30 tab Spironolactone [Aldactone] 25 mg PO BID@0900,1600 #60 tab HYDROcodone/APAP 7.5-325MG [[place] 7.5-325] 1 tab PO Q6H PRN PRN Reason: Pain Discharge Medication List Budesonide-Formot 160-4.5 Mcg [Symbicort 160-4.5 Mcg Inhaler] 2 puff INHALATION RT-BID 10/05/16 [History] Levothyroxine Sodium [Synthroid] 100 mcg PO DAILY 10/05/16 [History] Metoprolol Succinate (ER) [Toprol XL] 25 mg PO DAILY 10/05/16 [History] Montelukast [Singulair] 10 mg PO HS 10/05/16 [History] Sertraline [Zoloft] 200 mg PO AC-SUPPER 10/05/16 [History] Simvastatin [Zocor] 40 mg PO HS 10/05/16 [History] ARIPiprazole [Abilify] 2 mg PO DAILY 04/06/17 [History] Albuterol Sulfate [Proair Hfa] 2 puff INHALATION RT-Q6H PRN 04/06/17 [History] Acyclovir 400 mg PO DAILY PRN 05/13/17 [History] Acyclovir [Zovirax] 1 applic TOPICAL 5XD PRN 05/13/17 [History] Cetirizine HCl [Zyrtec] 10 mg PO HS PRN 05/13/17 [History] Ranitidine HCl [Zantac] 150 mg PO HS PRN 05/13/17 [History] ALPRAZolam [Xanax] 0.5 mg PO TID PRN 06/19/18 [History] Ergocalciferol [Vitamin D2 (DRISDOL)] 50,000 unit PO SA 06/19/18 [History] Omeprazole 40 mg PO BID 06/19/18 [History] Ferrous Sulfate [Iron (65 MG Elemental)] 325 mg PO BID #60 tab 06/27/18 [Rx] Furosemide [Lasix] 40 mg PO BID #60 tab 06/27/18 [Rx] Nystatin 100,000 Unit/ml Susp [Mycostatin Oral Susp] 500,000 unit PO QID #24 cup 06/27/18 [Rx] Spironolactone [Aldactone] 25 mg PO BID@0900,1600 #60 tab 06/27/18 [Rx] predniSONE 20 mg PO DAILY #30 tab 06/27/18 [Rx] HYDROcodone/APAP 7.5-325MG [[place] 7.5-325] 1 tab PO Q6H PRN 07/03/18 [History] Docusate [Colace] 100 mg PO DAILY PRN cap 07/09/18 [Rx] Ipratropium-Albuterol Nebulize [Duoneb 0.5 mg-3 mg/3 ml Soln] 3 ml INHALATION RT -QID ampul.neb 07/09/18 [Rx] Levofloxacin [Levaquin] 750 mg PO Q48H tab 07/09/18 [Rx] guaiFENesin [Mucinex] 600 mg PO Q12HR PRN tablet.er 07/09/18 [Rx] Follow up Appointment(s)/Referral(s): Clifford Johnson DO [Doctor of Osteopathic Medicine] - 3 Weeks (For T8 fracture) Walt Valadez DO [Doctor of Osteopathic Medicine] - 1 Week [facility], [NON-STAFF] - Michelle Naqvi MD [Primary Care Provider] - 07/10/18 4:00 pm (appointment on the 10th is cancelled -previously scheduled appointment) Patient Instructions/Handouts: Pneumonia (DC), Chronic Lung Disease and Infection Prevention (DC) Activity/Diet/Wound Care/Special Instructions: 1. Patient may wear Spinomed TLSO brace for comfort and support while sitting upright at greater than 45, while working with therapy, and while ambulating; patient does not have to wear the brace while lying in bed or bathing 2. Patient should avoid excessive bending, twisting, and lifting; no lifting greater than 10 pounds
--- NOTE | 2018-07-09 14:11 | P.PN ---
Subjective Progress Note Date: 07/09/18 This is a very pleasant 63-year-old female patient who follows with Dr. Naqvi as her primary care physician. 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 She follows with Dr. Valadez in our office. Most recent FEV1 value in April 2018 was 60% of predicted. She is maintained on Symbicort, Singulair and albuterol. She was recently hospitalized here for an exacerbation of diastolic systolic congestive heart failure and back pain and was found to have a compression fracture of T8 and was followed by orthopedics. A CT angiogram was performed and revealed no pulmonary embolism and just few scattered punctate lung nodules and small left pleural effusion. She was discharged home on 06/27/2018. She presented here again 07/02/2018 with complaints of increasing shortness of breath, cough and congestion. CT angiogram again ruled out pulmonary embolism however there is now, multifocal pneumonia and narrowing of the left lower lobe subsegmental bronchi. She has remained afebrile. Maintaining O2 saturations in the 90s on 3 L/m per nasal cannula. Hemodynamically stable. The culture reveals no growth to date. Initial white count 30.1. Current white count 15.5. ProBNP 4940. Troponin 0.216, 0.194. Creatinine 0.76. She's been initiated on DuoNeb inhalations 4 times a day and when necessary, Symbicort, Singulair. She is maintained on her prednisone at 20 mg daily. She's been initiated on Zosyn and Levaquin. Currently on Lasix 40 mg twice a day. She is seen today in consultation on the selective care unit. She is awake and alert in no acute distress. Resting fairly comfortably in bed. She states she is breathing easier today as compared to yesterday. No worsening shortness of breath, cough or congestion. She is utilizing the BiPAP at night 12/ in 28% FiO2. The patient is seen again today 07/06/2018 in follow-up on the selective care unit. She is currently awake and alert in no acute distress. She is breathing quite a bit easier today as compared to the previous days. Nearly back to her baseline. She is maintaining good O2 saturations in the upper 90s on 3 L/m per nasal cannula. She has been afebrile. Hemodynamically stable. Sputum and blood cultures reveal no growth. White count 9.1. Hemoglobin 9.2. Creatinine 0.97. She remains on Zosyn and Levaquin. Continued on DuoNeb inhalations, Symbicort, Solu-Medrol. The patient is seen again today 07/07/2018 in follow-up on the selective care unit. She is currently resting quite comfortably in bed. She is comfortable at rest. She states when she is up to the bathroom and back if she moves too fast she does get quite dyspneic on minimal exertion. She is currently maintaining good O2 saturations up to 99% on 2 L/m per nasal cannula. She's been afebrile. Hemodynamically stable. Sputum and blood cultures reveal no growth. White count 11.5. Hemoglobin 9.4. Creatinine 1.06. On 07/08/2018 patient is seen in follow-up on selective care unit. She states her breathing is improving, although she still gets dyspneic with walking to the bathroom. She is on her baseline FiO2 of 2 L and her pulse ox is 98%, she is afebrile, hemodynamically stable, lung sounds are positive for scattered rhonchi, but no wheezes. She remains on Zosyn and Levaquin., she is coughing up some dark beige colored sputum, small amount, compliant with her incentive spirometer, she is able to achieve 1000 01/09/1950 ML on it today. Sinus rhythm. Chest x-ray shows improving changes of pulmonary edema. Patient has been transitioned to oral Lasix of 40 mg twice daily. Increase activity as tolerated, patient is stable, and improving. We will decrease the IV Solu- Medrol to 40 mg every 12 hours, and potentially transition patient to oral prednisone starting tomorrow. On 07/09/2018 the patient is afebrile hemodynamically stable. She is ambulating. Significant improvement in her pulmonary status and the patient is less short of breath. No significant cough or sputum production pedal fever or chills. Cultures of been all negative and the patient had subsequent chest x- ray that showed improvement in the bilateral patchy pulmonary infiltrates/ pneumonia. She is on IV Solu-Medrol. Objective - Vital Signs Vital signs: Vital Signs Temp 97.8 F 07/09/18 05:44 Pulse 108 H 07/09/18 11:15 Resp 18 07/09/18 05:44 BP 119/56 07/09/18 05:44 Pulse Ox 95 07/09/18 05:44 Intake & Output 07/08/18 07/09/18 07/09/18 18:59 06:59 18:59 Intake Total 724 565 5236 Balance 731 089 7832 Weight 93.1 kg 88.5 kg Intake: IV 50 50 Piperacillin-Tazobactam 3 50 50 .375 gm In Dextrose/Water 1 50ml.bag @ 12.5 mls/hr IVPB Q8HR [facility] Rx#: [id number] Oral [id number] Other: Voiding Method Toilet Toilet Toilet # Voids 1 2 3 # Bowel Movements 1 - Exam - Constitutional General appearance: morbidly obese, no acute distress - EENT Eyes: EOMI, PERRLA ENT: hearing grossly normal Ears: bilateral: normal - Neck Neck: normal ROM Carotids: bilateral: upstroke normal Thyroid: bilateral: normal size - Respiratory Respiratory: left: rales, bilateral: rhonchi, improved - Cardiovascular Rhythm: regular Heart sounds: normal: S1, S2 - Gastrointestinal General gastrointestinal: normal bowel sounds - Integumentary Integumentary: normal - Neurologic Neurologic: CNII-XII intact - Musculoskeletal Musculoskeletal: generalized weakness - Psychiatric Psychiatric: A&O x's 3, appropriate affect, intact judgment & insight - Labs CBC & Chem 7: 07/09/18 07:28 07/09/18 07:28 Labs: Abnormal Lab Results - Last 24 Hours (Table) 07/08/18 07/08/18 07/09/18 Range/Units 17:28 20:41 07:17 WBC (3.8-10.6) k/uL Hgb (11.4-16.0) gm/dL Hct (34.0-46.0) % RDW (11.5-15.5) % Plt Count (150-450) k/uL Neutrophils # (1.3-7.7) k/uL Chloride (98-107) mmol/L Carbon Dioxide (22-30) mmol/L BUN (7-17) mg/dL Creatinine (0.52-1.04) mg/dL POC Glucose (mg/dL) 132 H 123 H 109 H (75-99) mg/dL Total Protein (6.3-8.2) g/dL 07/09/18 07/09/18 07/09/18 Range/Units 07:28 07:28 12:07 WBC 14.6 H (3.8-10.6) k/uL Hgb 10.5 L (11.4-16.0) gm/dL Hct 33.0 L (34.0-46.0) % RDW 19.7 H (11.5-15.5) % Plt Count 517 H (150-450) k/uL Neutrophils # 11.9 H (1.3-7.7) k/uL Chloride 92 L (98-107) mmol/L Carbon Dioxide 39 H (22-30) mmol/L BUN 37 H (7-17) mg/dL Creatinine 1.10 H (0.52-1.04) mg/dL POC Glucose (mg/dL) 117 H (75-99) mg/dL Total Protein 6.0 L (6.3-8.2) g/dL Microbiology - Last 24 Hours (Table) 07/07/18 08:15 Gram Stain - Final Sputum Sputum Culture - Final 07/02/18 21:45 Blood Culture - Final Blood No Growth after 144 hours Assessment and Plan Plan: Assessment #1 Acute on chronic hypoxic respiratory failure secondary to an acute multifocal pneumonia, healthcare acquired. Sputum blood cultures remain negative to date and the patient's subsequent chest x-ray showed prominent pneumonia and there was further improvement in the patch of breath and pulmonary infiltrates on subsequent chest x-rays. The patient was treated with a combination of Zosyn and Levaquin. The patient is also on IV Solu-Medrol. #2 Bronchiolitis obliterans organizing pneumonia (BOOP), biopsy proven. #3 Acute exacerbation of moderate persistent asthma secondary to above. #4 Obstructive sleep apnea utilizing CPAP in the outpatient setting. #5 History of diastolic congestive heart failure. #6 Hypertension. #7 Hyperlipidemia. #8 Gastroesophageal reflux disease. 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 #10 History of Hodgkin's lymphoma status post chemoradiation. #11 History of breast cancer status post mastectomy. #12 History of kidney cancer status post right nephrectomy. History of anxiety/ depression. Plan The patient can discharge home on Levaquin 750 mg for the next 7 days. Follow- up in the office for her chest x-ray. Put the patient on 40 milligrams of prednisone as part of burst taper to be reduced down to 20 mg which is her baseline maintenance dose for BOOP. Follow-up in our office with her carpenters helper, Dr. Valadez
== END 2018-07-09 15:50 | disposition home health service (06) | DRG 871 ==
LOC: EC 20:29 → 6SEL 22:16 → 5MS5E 07-08 11:56
PROVIDERS: ADMIT Internal Medicine; ATTEND Internal Medicine
DX: A41.9 Sepsis, unspecified organism (principal); J18.9 Pneumonia, unspecified organism; J96.21 Acute and chronic respiratory failure with hypoxia; I50.42 Chronic combined systolic (congestive) and diastolic (congestive) heart failure; J45.41 Moderate persistent asthma with (acute) exacerbation; D50.9 Iron deficiency anemia, unspecified; E66.01 Morbid (severe) obesity due to excess calories; E78.5 Hyperlipidemia, unspecified; F41.1 Generalized anxiety disorder; G47.33 Obstructive sleep apnea (adult) (pediatric); G89.29 Other chronic pain; I11.0 Hypertensive heart disease with heart failure; K21.9 Gastro-esophageal reflux disease without esophagitis; J84.89 Other specified interstitial pulmonary diseases; F32.9 Major depressive disorder, single episode, unspecified; E03.9 Hypothyroidism, unspecified; M51.36 Other intervertebral disc degeneration, lumbar region; M80.08XD Age-related osteoporosis with current pathological fracture, vertebra(e), subsequent encounter for fracture with routine healing; Z79.51 Long term (current) use of inhaled steroids; Z79.52 Long term (current) use of systemic steroids; Z79.899 Other long term (current) drug therapy; Z79.890 Hormone replacement therapy; Z85.3 Personal history of malignant neoplasm of breast; Z85.528 Personal history of other malignant neoplasm of kidney; Z85.71 Personal history of Hodgkin lymphoma; Z87.01 Personal history of pneumonia (recurrent); Z87.891 Personal history of nicotine dependence; Z90.12 Acquired absence of left breast and nipple; Z90.5 Acquired absence of kidney; Z90.710 Acquired absence of both cervix and uterus; Z92.3 Personal history of irradiation; Z92.21 Personal history of antineoplastic chemotherapy; Z68.35 Body mass index [BMI] 35.0-35.9, adult; Z98.42 Cataract extraction status, left eye; Z98.41 Cataract extraction status, right eye; Z96.1 Presence of intraocular lens; Z82.49 Family history of ischemic heart disease and other diseases of the circulatory system; Z82.61 Family history of arthritis; Y95 Nosocomial condition
CPT/HCPCS: 36415; 51702; 71045; 71046; 71275; 80053; 82550; 82553; 83605; 83880; 84484; 85025; 85610; 85730; 87040; 87070; 87205; 93005; 94640; 94660; 94760; 96365; 96366; 96367; 99285

== ENCOUNTER → 2018-08-21 | Outpatient (CLI) | payer BC ==
--- NOTE | 2018-08-21 13:13 | XR ---
EXAMINATION TYPE: XR chest 2V DATE OF EXAM: 08/21/2018 COMPARISON: CTA chest July 03, 2018. Chest x-ray July 08, 2018. HISTORY: Malignant neoplasm right kidney. TECHNIQUE: Frontal and lateral views of the chest are obtained. FINDINGS: Osseous structures remain demineralized. Compression fractures midthoracic spine are seen better on CT. There is stable mild cardiomegaly with persistent small left pleural effusion and assoc iated left basilar atelectasis and/or infiltrate. Calcified left suprahilar mass corresponds to media stinal lesion on CT. Atherosclerotic thoracic aorta is present. Additional calcified right paratrache al lesions are redemonstrated. Surgical clips left upper quadrant are again seen. IMPRESSION: Cardiomegaly with slightly larger small left pleural effusion and associated left basila r atelectasis and/or infiltrate.
[2018-08-21 13:35] LABS: Blood Urea Nitrogen 28 mg/dL (7-17)
--- NOTE | 2018-08-21 14:19 | CT ---
EXAMINATION TYPE: CT abdomen w con DATE OF EXAM: 08/21/2018 COMPARISON: 07/03/2018, 10/05/2017 HISTORY: Malignant neoplasm right kidney. CT DLP: 1231.8 mGycm Automated exposure control for dose reduction was used. TECHNIQUE: Helical acquisition of images was performed from the lung bases through the top of iliac crest to include entire abdomen. CONTRAST: Performed with Oral Contrast and with IV Contrast, patient injected with 100 mL of Isovue M300. FINDINGS: LUNG BASES: Radiopaque density again within the left lung is nonspecific could be postsurgical, previ ous foreign body, although other etiologies not excluded. Chronic rib deformities are seen. There is persistent left-sided pleural effusion and basilar consolidation. Left breast prostheses noted. LIVER/GB: No significant abnormality is appreciated. PANCREAS: No significant abnormality is seen. 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 Surgical clips in the region.. ADRENALS: No significant abnormality is seen. KIDNEYS: There is be evidence of previous surgery involving the right kidney. No suspicious solid nancy earing mass identified. No hydronephrosis. BOWEL: No significant abnormality is seen. LYMPH NODES: No significant abnormality is seen. OSSEOUS STRUCTURES: No significant abnormality is seen. OTHER: Aorta of normal caliber. Previous surgery involving the anterior abdominal wall noted. IMPRESSION: 1. Postoperative change involving right kidney with no evidence of recurrent mass or pathologic adeno enedina. There are 2 small left pleural effusion
== END | disposition home or self-care (01) ==
LOC: RADCTMAIN 12:40
PROVIDERS: ATTEND Urology
DX: J90 Pleural effusion, not elsewhere classified (principal); J98.11 Atelectasis; I51.7 Cardiomegaly; C64.1 Malignant neoplasm of right kidney, except renal pelvis
CPT/HCPCS: 82565; 84520; 71046; 74160; 36415; Q9967

== ENCOUNTER 2018-09-13 13:18 | Inpatient (IN) | payer BC ==
[2018-09-13 14:29] LABS: Anisocytosis Slight; Basophils % (A) 0 %; Eosinophils # (A) 0.1 k/uL (0-0.7); Eosinophils % (A) 1 %; HCT 34.4 % (34.0-46.0); HGB 10.4 gm/dL (11.4-16.0); Hypochromasia Moderate; Lymphocytes # (A) 2.1 k/uL (1.0-4.8); Lymphocytes % (A) 16 %; MCH 26.9 pg (25.0-35.0); MCHC 30.3 g/dL (31.0-37.0); Mean Platelet Volume 6.6; Monocytes # (A) 0.6 k/uL (0-1.0); Monocytes % (A) 5 %; Neutrophils # (A) 9.9 k/uL (1.3-7.7); Neutrophils % (A) 77 %; Platelet Count 392 k/uL (150-450); RBC 3.88 m/uL (3.80-5.40); RDW 17.3 % (11.5-15.5)
[2018-09-13 14:34] LABS: MCV 88.9 fL (80.0-100.0)
--- NOTE | 2018-09-13 14:34 | XR ---
EXAMINATION TYPE: XR chest 2V DATE OF EXAM: 09/13/2018 COMPARISON: Chest x-ray August 21, 2018 HISTORY: History of COPD with left-sided chest pain and difficulty in breathing. TECHNIQUE: Frontal and lateral views of the chest are obtained. FINDINGS: There is cardiomegaly with atherosclerotic thoracic aorta. There is small left pleural eff usion with associated left basilar atelectasis and/or infiltrate. Calcified bilateral hilar and right paratracheal lymph nodes are redemonstrated. There is left hilar retraction with apical scarring and /or atelectasis. Increased interstitial markings bilaterally are present on current study. Surgical c lips epigastric region are noted. The osseous structures are intact. IMPRESSION: Cardiomegaly and chronic parenchymal changes with persistent small left pleural effusion and associated left basilar atelectasis and/or infiltrate. New mild diffuse interstitial edema is fel t present bilaterally. Correlate for fluid overload state and/or CHF exacerbation on background of ch ronic disease.
[2018-09-13 14:42] LABS: Albumin 3.6 g/dL (3.5-5.0); Calcium 9.7 mg/dL (8.4-10.2); Potassium 3.8 mmol/L (3.5-5.1); Total Bilirubin 0.4 mg/dL (0.2-1.3); Total Protein 6.3 g/dL (6.3-8.2)
--- NOTE | 2018-09-13 14:42 | ED ---
General Adult HPI - General Chief complaint: Shortness of Breath Stated complaint: SOB Source: patient Mode of arrival: ambulatory Limitations: no limitations - History of Present Illness Initial comments: Dictation was produced using [email or web address] dictation software. please excuse any grammatical, word or spelling errors. Chief Complaint: 63-year-old female multiple comorbidities including breast cancer, asthma, heart failure, hypertension presents with shortness of breath and pleuritic chest pain. History of Present Illness: Patient is 63-year-old female with multiple comorbidities presents with pleuritic chest pain and shortness of breath. Patient states that her shortness of breath is worse with lying flat. States improved with sitting up. She also has left-sided pleuritic chest pain. Patient states she has not ever had symptoms like this in the past. She denies history of blood clots. She does have a history of cancer however. Denies any constitutional symptoms. Denies any cough is productive of sputum. She feels as though she is been more swollen than usual especially in her legs. She states the swelling goes up to just below her knees. The ROS documented in this emergency department record has been reviewed and confirmed by me. Those systems with pertinent positive or negative responses have been documented in the HPI. All other systems are other negative and/or noncontributory. - Related Data Home Medications Medication Instructions Recorded Confirmed Budesonide-Formot 160-4.5 Mcg 2 puff INHALATION RT-BID 10/05/16 09/13/18 [Symbicort 160-4.5 Mcg Inhaler] Levothyroxine Sodium [Synthroid] 100 mcg PO DAILY 10/05/16 09/13/18 Metoprolol Succinate (ER) [Toprol 25 mg PO DAILY@1200 10/05/16 09/13/18 XL] Montelukast [Singulair] 10 mg PO HS 10/05/16 09/13/18 Sertraline [Zoloft] 200 mg PO AC-SUPPER 10/05/16 09/13/18 Simvastatin [Zocor] 40 mg PO HS 10/05/16 09/13/18 ARIPiprazole [Abilify] 2 mg PO DAILY 04/06/17 09/13/18 Albuterol Sulfate [Proair Hfa] 2 puff INHALATION RT-Q6H PRN 04/06/17 09/13/18 Acyclovir 400 mg PO DAILY PRN 05/13/17 09/13/18 Acyclovir [Zovirax] 1 applic TOPICAL 5XD PRN 05/13/17 09/13/18 Cetirizine HCl [Zyrtec] 10 mg PO HS PRN 05/13/17 09/13/18 Ranitidine HCl [Zantac] 150 mg PO HS PRN 05/13/17 09/13/18 ALPRAZolam [Xanax] 0.5 mg PO Q8H PRN 06/19/18 09/13/18 Ergocalciferol [Vitamin D2 50,000 unit PO SA 06/19/18 09/13/18 (DRISDOL)] Omeprazole 40 mg PO BID 06/19/18 09/13/18 HYDROcodone/APAP 7.5-325MG [[place] 1 tab PO Q6H PRN 07/03/18 09/13/18 7.5-325] Ferrous Sulfate [Iron (65 MG 325 mg PO W/SUPPER 09/13/18 09/13/18 Elemental)] Furosemide [Lasix] 40 mg PO DAILY@1200 09/13/18 09/13/18 Potassium Chloride [K-Tab ER] 10 meq PO DAILY@1200 09/13/18 09/13/18 Spironolactone [Aldactone] 25 mg PO HS 09/13/18 09/13/18 predniSONE 15 mg PO DAILY@1200 09/13/18 09/13/18 Previous Rx's Medication Instructions Recorded Ipratropium-Albuterol Nebulize 3 ml INHALATION RT-QID ampul.neb 07/09/18 [Duoneb 0.5 mg-3 mg/3 ml Soln] Allergies Allergy/AdvReac Type Severity Reaction Status Date / Time No Known Allergies Allergy Verified 09/13/18 13:54 Review of Systems ROS Statement: Those systems with pertinent positive or pertinent negative responses have been documented in the HPI. ROS Other: All systems not noted in ROS Statement are negative. 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 CHF, echo showed EF 50-55%, anemia, multiple thoracic compression fractures with T8 being worse, herpes simplex type I L buttock which was tx and pt states it is gone now. 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 History of Any Multi-Drug Resistant Organisms: None Reported Past Surgical History: Adenoidectomy, Breast Surgery, Section, Hysterectomy, Orthopedic Surgery, Tonsillectomy Additional Past Surgical History / Comment(s): Spleenectomy, laparotomy, colonoscopy, EGD, bilateral 5th toe surgery for spurs, L breast mastectomy with breast reconstruction, bronchoscopy/lung bx, rt kidney partial nephrectomy, bilateral cataract removals with lens implants. Past Anesthesia/Blood Transfusion Reactions: No Reported Reaction Past Psychological History: Anxiety, Depression Smoking Status: Former smoker Past Alcohol Use History: None Reported Past Drug Use History: None Reported - Past Family History Mother Family Medical History: Osteoarthritis (OA) Additional Family Medical History / Comment(s): glaucoma Brother(s) Additional Family Medical History / Comment(s): MS Father Family Medical History: Myocardial Infarction ([place]) Additional Family Medical History / Comment(s): age 70 -mi General Exam - General Exam Comments Initial Comments: PHYSICAL EXAM: General Impression: Alert and oriented x3, not in acute distress HEENT: Normocephalic atraumatic, extra-ocular movements intact, pupils equal and reactive to light bilaterally, mucous membranes moist. Cardiovascular: Heart regular rate and rhythm, S1&S2 audible, no murmurs, rubs or gallops Chest: Mild crackles at the lung bases bilaterally Abdomen: Bowel sounds present, abdomen soft, non-tender, non-distended, no organomegaly Musculoskeletal: Pulses present and equal in all extremities, bilateral 3+ pitting edema Motor: Moves all shows grossly Neurological: CN II-XII grossly intact, no focal motor or sensory deficits noted Skin: Intact with no visualized rashes Psych: Normal affect and mood Limitations: no limitations Course Vital Signs 09/13/18 13:19 Temperature 97.7 F Pulse Rate 100 Respiratory 24 Rate Blood Pressure 130/65 O2 Sat by Pulse 96 Oximetry Medical Decision Making - Medical Decision Making ED course: 62-year-old female presents with clinical presentation suspicious for CHF exacerbation. Patient is orthopneic and has bilateral pitting edema that is worsened usual. She does also have associated pleuritic chest pain. Patient's chest pain is atypical and not indicative of acute coronary syndrome. Vital signs upon arrival are within acceptable limits. Patient not showing any signs of respiratory distress at this time. EKG does not show any ischemic findings. Return evaluation obtained. Patient has leukocytosis of 13.0. Patient is on chronic steroids likely secondary to steroid use. Rest of CBC is unremarkable. Coag panel is unremarkable. Metabolic panel shows mild non-gap acidosis. Rest of metabolic panel is unremarkable. Abdominal labs are negative. Cardiac enzymes are negative. Patient does have elevated prematurity peptide. Patient does not appear to be in significant respiratory distress however patient is symptomatic. There is strong clinical suspicion that patient's symptoms are due to CHF exacerbation. Chest x-ray shows cardiomegaly and chronic changes with new diffuse interstitial edema bilaterally. Decision was made with patient to have patient minute to observation for gentle diuresis. We will put cardiology on consult. Patient given 40 mg of Lasix. EKG Interpretation: A 12 lead EKG was obtained. It was interpreted by myself and attending physician. There is a P wave before every QRS complex. Rate is 98. Rhythm is normal sinus rhythm, NC interval 156, QS 142, QTC 495, left bundle branch block. QT is not prolonged. No ST segment depression or elevation. This EKG was compared to a previous EKG that was obtained on 07/02/2018 and showed no significant change. Overall, this EKG is unremarkable - Lab Data Result diagrams: 09/13/18 14:15 09/13/18 14:15 Lab Results 09/13/18 09/13/18 09/13/18 Range/Units 14:15 14:15 14:15 WBC 13.0 H (3.8-10.6) k/uL RBC 3.88 (3.80-5.40) m/uL Hgb 10.4 L (11.4-16.0) gm/dL Hct 34.4 (34.0-46.0) % MCV 88.9 D (80.0-100.0) fL MCH 26.9 (25.0-35.0) pg MCHC 30.3 L (31.0-37.0) g/dL RDW 17.3 H (11.5-15.5) % Plt Count 392 (150-450) k/uL Neutrophils % 77 % Lymphocytes % 16 % Monocytes % 5 % Eosinophils % 1 % Basophils % 0 % Neutrophils # 9.9 H (1.3-7.7) k/uL Lymphocytes # 2.1 (1.0-4.8) k/uL Monocytes # 0.6 (0-1.0) k/uL Eosinophils # 0.1 (0-0.7) k/uL Basophils # 0.0 (0-0.2) k/uL Hypochromasia Moderate Anisocytosis Slight PT (9.0-12.0) sec INR (<1.2) APTT (22.0-30.0) sec Sodium 140 (137-145) mmol/L Potassium 3.8 (3.5-5.1) mmol/L Chloride 100 (98-107) mmol/L Carbon Dioxide 33 H (22-30) mmol/L Anion Gap 7 mmol/L BUN 21 H (7-17) mg/dL Creatinine 0.82 (0.52-1.04) mg/dL Est GFR (CKD-EPI)AfAm 88 (>60 ml/min/1.73 sqM) Est GFR (CKD-EPI)NonAf 77 (>60 ml/min/1.73 sqM) Glucose 100 H (74-99) mg/dL Calcium 9.7 (8.4-10.2) mg/dL Magnesium 2.0 (1.6-2.3) mg/dL Total Bilirubin 0.4 (0.2-1.3) mg/dL AST 16 (14-36) U/L ALT 32 (9-52) U/L Alkaline Phosphatase 69 (38-126) U/L Total Creatine Kinase <20 L (30-135) U/L CK-MB (CK-2) 0.5 (0.0-2.4) ng/mL CK-MB (CK-2) Rel Index Troponin I <0.012 (0.000-0.034) ng/mL NT-Pro-B Natriuret Pep pg/mL Total Protein 6.3 (6.3-8.2) g/dL Albumin 3.6 (3.5-5.0) g/dL 09/13/18 09/13/18 Range/Units 14:15 14:15 WBC (3.8-10.6) k/uL RBC (3.80-5.40) m/uL Hgb (11.4-16.0) gm/dL Hct (34.0-46.0) % MCV (80.0-100.0) fL MCH (25.0-35.0) pg MCHC (31.0-37.0) g/dL RDW (11.5-15.5) % Plt Count (150-450) k/uL Neutrophils % % Lymphocytes % % Monocytes % % Eosinophils % % Basophils % % Neutrophils # (1.3-7.7) k/uL Lymphocytes # (1.0-4.8) k/uL Monocytes # (0-1.0) k/uL Eosinophils # (0-0.7) k/uL Basophils # (0-0.2) k/uL Hypochromasia Anisocytosis PT 9.8 (9.0-12.0) sec INR 1.0 (<1.2) APTT 21.8 L (22.0-30.0) sec Sodium (137-145) mmol/L Potassium (3.5-5.1) mmol/L Chloride (98-107) mmol/L Carbon Dioxide (22-30) mmol/L Anion Gap mmol/L BUN (7-17) mg/dL Creatinine (0.52-1.04) mg/dL Est GFR (CKD-EPI)AfAm (>60 ml/min/1.73 sqM) Est GFR (CKD-EPI)NonAf (>60 ml/min/1.73 sqM) Glucose (74-99) mg/dL Calcium (8.4-10.2) mg/dL Magnesium (1.6-2.3) mg/dL Total Bilirubin (0.2-1.3) mg/dL AST (14-36) U/L ALT (9-52) U/L Alkaline Phosphatase (38-126) U/L Total Creatine Kinase (30-135) U/L CK-MB (CK-2) (0.0-2.4) ng/mL CK-MB (CK-2) Rel Index Troponin I (0.000-0.034) ng/mL NT-Pro-B Natriuret Pep 1280 pg/mL Total Protein (6.3-8.2) g/dL Albumin (3.5-5.0) g/dL Disposition Clinical Impression: CHF exacerbation Disposition: ADMITTED IP TO THIS [facility] Condition: Good Referrals: Michelle Naqvi MD [Primary Care Provider] - 1-2 days Decision Time: 16:07
[2018-09-13 14:50] LABS: Creatine Kinase <20 U/L (30-135)
[2018-09-13 14:54] LABS: Partial Thromboplastin Time 21.8 sec (22.0-30.0); Prothrombin Time 9.8 sec (9.0-12.0)
[2018-09-13 15:03] LABS: Creatine Kinase MB 0.5 ng/mL (0.0-2.4); Troponin I <0.012 ng/mL (0.000-0.034)
[2018-09-13] MEDS ORDERED: ALBUTEROL NEBULIZED 2.5 MG/3 ML INHALATION PRN (16:09)
[2018-09-13] MEDS: FUROSEMIDE 10 MG/ML 4 ML VIAL IV SCH (16:55)
[2018-09-13] MEDS ORDERED: HYDROcodone/APAP 7.5-325MG 1 EACH TAB PO ONE (20:24)
[2018-09-13] MEDS: ALPRAZolam 0.5 MG TAB PO PRN (20:32)
[2018-09-14] MEDS: ATORVASTATIN 20 MG TAB PO SCH ×2 (00:01→20:38)
[2018-09-14] MEDS: SPIRONOLACTONE 25 MG TAB PO SCH ×2 (00:01→20:38)
[2018-09-14] MEDS: FUROSEMIDE 10 MG/ML 4 ML VIAL IV SCH ×2 (04:55→16:41)
[2018-09-14] MEDS: ALPRAZolam 0.5 MG TAB PO PRN ×2 (06:03→18:35)
[2018-09-14] MEDS ORDERED: LORATADINE 10 MG TAB PO PRN (10:27)
[2018-09-14] MEDS ORDERED: FAMOTIDINE 20 MG TAB PO PRN (10:27)
--- NOTE | 2018-09-14 11:24 | P.CRDCN ---
History of Present Illness Consult date: 09/14/18 Requesting physician: Michelle Naqvi Consult reason: congestive heart failure Chief complaint: shortness of breath History of present illness: This is a 63-year-old female who follows with Dr. Jasso in the office. She has a known history of hyperlipidemia, nonischemic cardio myopathy , hyperlipidemia, hypothyroidism, history of breast cancer with prior mastectomy , aortic valve insufficiency, nonrheumatic, Hodgkin's lymphoma for which the patient has undergone chemotherapyand radiation,obstructive sleep apnea,BOOP( bronchiolitis obliterans organizing pneumonia) and asthma.she presents to the hospital on this occasion with symptoms of progressively worsening shortness of breath, PND and orthopnea, peripheral edema.chest x-ray on admission showed cardiomegaly and chronic parenchymal changes with persistent small left pleural effusion and associated left basilar atelectasis. Mild diffuse interstitial edema is felt to be present bilaterally. Correlate for fluid overload and congestive heart failure exacerbation on top of her chronic disease.EKG shows normal sinus rhythm with a left bundle-branch block pattern.laboratory data, white blood cell count 13.0, hemoglobin 10.4, platelet count 392. Sodium 140, potassium 3.8, BUN 21, creatinine 0.8.troponin 0.012 and BNP level 1280.most recent echocardiogram with Doppler study was performed in May of this year which revealed an ejection fraction of 50-55%. At the time of my examination, Patient states she is still quite short of breath, does not feel any better than when she presented here in spite of the fact that the patient has been given IV Lasix.she did put out good urine through the night last night her weight is down 1 kg today. Past Medical History Past Medical History: Asthma, Cancer, Heart Failure, GERD/Reflux, Hyperlipidemia , Hypertension, Sleep Apnea/CPAP/BIPAP, Thyroid Disorder Additional Past Medical History / Comment(s): BOOP. CHF, echo showed EF 50-55%, anemia, multiple thoracic compression fractures with T8 being worsewears brace, past herpes simplex type I L buttock which was tx . Other hx:1978 Hodgkins Lymphoma status post chemo and radiation chest area in 1978; L Breast CA-status post mastectomy(sx only), R renal carcinoma with partial nephrectomy, BOOP, home 02 prn, ASHKAN with CPAP use, hypothyroid, chronic back pain, recently given a back brace, osteoporosis. History of Any Multi-Drug Resistant Organisms: None Reported Past Surgical History: Adenoidectomy, Breast Surgery, Section, Hysterectomy, Orthopedic Surgery, Tonsillectomy Additional Past Surgical History / Comment(s): Spleenectomy, laparotomy, colonoscopy, EGD, bilateral 5th toe surgery for spurs, L breast mastectomy with breast reconstruction, bronchoscopy/lung bx, rt kidney partial nephrectomy, bilateral cataract removals with lens implants. Past Anesthesia/Blood Transfusion Reactions: No Reported Reaction Additional Past Anesthesia/Blood Transfusion Reaction / Comment(s): clausterphobia (mri's) Smoking Status: Former smoker - Past Family History Mother Family Medical History: Osteoarthritis (OA) Additional Family Medical History / Comment(s): glaucoma Brother(s) Additional Family Medical History / Comment(s): MS Father Family Medical History: Liver Disease, Myocardial Infarction ([place]) Additional Family Medical History / Comment(s): age 70 -mi, alcoholic Medications and Allergies Home Medications Medication Instructions Recorded Confirmed Type Budesonide-Formot 160-4.5 Mcg 2 puff INHALATION RT-BID 10/05/16 09/13/18 History [Symbicort 160-4.5 Mcg Inhaler] Levothyroxine Sodium [Synthroid] 100 mcg PO DAILY 10/05/16 09/13/18 History Metoprolol Succinate (ER) [Toprol 25 mg PO DAILY@1200 10/05/16 09/13/18 History XL] Montelukast [Singulair] 10 mg PO HS 10/05/16 09/13/18 History Sertraline [Zoloft] 200 mg PO AC-SUPPER 10/05/16 09/13/18 History Simvastatin [Zocor] 40 mg PO HS 10/05/16 09/13/18 History ARIPiprazole [Abilify] 2 mg PO DAILY 04/06/17 09/13/18 History Albuterol Sulfate [Proair Hfa] 2 puff INHALATION RT-Q6H PRN 04/06/17 09/13/18 History Acyclovir 400 mg PO DAILY PRN 05/13/17 09/13/18 History Acyclovir [Zovirax] 1 applic TOPICAL 5XD PRN 05/13/17 09/13/18 History Cetirizine HCl [Zyrtec] 10 mg PO HS PRN 05/13/17 09/13/18 History Ranitidine HCl [Zantac] 150 mg PO HS PRN 05/13/17 09/13/18 History ALPRAZolam [Xanax] 0.5 mg PO Q8H PRN 06/19/18 09/13/18 History Ergocalciferol [Vitamin D2 50,000 unit PO SA 06/19/18 09/13/18 History (DRISDOL)] Omeprazole 40 mg PO BID 06/19/18 09/13/18 History HYDROcodone/APAP 7.5-325MG [[place] 1 tab PO Q6H PRN 07/03/18 09/13/18 History 7.5-325] Ipratropium-Albuterol Nebulize 3 ml INHALATION RT-QID ampul.neb 07/09/18 Rx [Duoneb 0.5 mg-3 mg/3 ml Soln] Ferrous Sulfate [Iron (65 MG 325 mg PO W/SUPPER 09/13/18 09/13/18 History Elemental)] Furosemide [Lasix] 40 mg PO DAILY@1200 09/13/18 09/13/18 History Potassium Chloride [K-Tab ER] 10 meq PO DAILY@1200 09/13/18 09/13/18 History Spironolactone [Aldactone] 25 mg PO HS 09/13/18 09/13/18 History predniSONE 15 mg PO DAILY@1200 09/13/18 09/13/18 History Allergies Allergy/AdvReac Type Severity Reaction Status Date / Time No Known Allergies Allergy Verified 09/13/18 13:54 Physical Exam Vitals: Vital Signs Temp Pulse Pulse Resp BP BP Pulse Ox 09/14/18 08:53 99 18 98 09/14/18 08:15 98.2 F 103 H 20 113/57 100 09/14/18 08:00 18 09/14/18 04:00 98.1 F 94 18 112/57 97 09/14/18 00:00 98.4 F 93 20 104/56 97 09/13/18 22:54 98.3 F 90 20 145/75 09/13/18 19:53 96 24 110/64 97 09/13/18 17:00 103 H 24 156/65 95 09/13/18 16:00 89 26 H 121/63 100 09/13/18 15:00 90 22 100/52 100 09/13/18 14:00 98 24 126/77 99 09/13/18 13:19 97.7 F 100 24 130/65 96 Intake and Output 09/13/18 09/14/18 09/14/18 22:59 06:59 14:59 Intake Total 80 240 Output Total 361 585 2356 Balance -400 420 -2160 Intake: Oral 80 240 Output: Urine 125 936 [id number] Other: # Voids 1 # Bowel Movements 0 Weight 88.5 kg PHYSICAL EXAMINATION: GENERAL:63-year-old female in no acute distress at the time of my examination HEENT: Head is atraumatic, normocephalic. Pupils equal, round. Sclera anicteric. Conjunctiva are clear. Mucous membranes of the mouth are moist. Neck is supple. There is elevated jugular venous pressure.No carotid bruit is heard. HEART EXAMINATION:heart S1-S2 systolic murmur is heard at the base.] CHEST EXAMINATION:Lungs reveal decreased air exchange bilaterally.] ABDOMEN: [ Soft, nontender. Bowel sounds are heard. No organomegaly noted]. EXTREMITIES:[ 2+ peripheral pulses with trace to 1+ evidence of peripheral edema . NEUROLOGIC [patient is awake, alert and oriented X3.] . Results 09/13/18 14:15 09/13/18 14:15 Cardiac Enzymes 09/13/18 09/13/18 Range/Units 14:15 14:15 AST 16 (14-36) U/L CK-MB (CK-2) 0.5 (0.0-2.4) ng/mL Troponin I <0.012 (0.000-0.034) ng/mL Coagulation 09/13/18 Range/Units 14:15 PT 9.8 (9.0-12.0) sec APTT 21.8 L (22.0-30.0) sec CBC 09/13/18 Range/Units 14:15 WBC 13.0 H (3.8-10.6) k/uL RBC 3.88 (3.80-5.40) m/uL Hgb 10.4 L (11.4-16.0) gm/dL Hct 34.4 (34.0-46.0) % Plt Count 392 (150-450) k/uL Comprehensive Metabolic Panel 10/17/18 Range/Units 14:15 Sodium 140 (137-145) mmol/L Potassium 3.8 (3.5-5.1) mmol/L Chloride 100 (98-107) mmol/L Carbon Dioxide 33 H (22-30) mmol/L BUN 21 H (7-17) mg/dL Creatinine 0.82 (0.52-1.04) mg/dL Glucose 100 H (74-99) mg/dL Calcium 9.7 (8.4-10.2) mg/dL AST 16 (14-36) U/L ALT 32 (9-52) U/L Alkaline Phosphatase 69 (38-126) U/L Total Protein 6.3 (6.3-8.2) g/dL Albumin 3.6 (3.5-5.0) g/dL Current Medications Generic Name Dose Route Start Last Admin Trade Name Freq PRN Reason Stop Dose Admin Hydrocodone Bitart/Acetaminophen 1 each 09/14/18 10:27 [place] 7.5-325 PO Q6H PRN MODERATE Pain Albuterol Sulfate 2.5 mg 09/13/18 16:09 09/14/18 08:53 Ventolin Nebulized INHALATION 2.5 mg RT-Q6H PRN Administration Shortness Of Breath Albuterol/Ipratropium 3 ml 09/14/18 12:00 Duoneb 0.5 Mg-3 Mg/3 Ml Soln INHALATION RT-QID ERICA Alprazolam 0.5 mg 09/13/18 16:09 09/14/18 06:03 Xanax PO 0.5 mg Q8H PRN Administration Anxiety Aripiprazole 2 mg 09/14/18 10:30 Abilify PO DAILY [facility] Atorvastatin Calcium 20 mg 09/13/18 21:00 09/14/18 00:01 Lipitor PO 20 mg HS ERICA Administration Budesonide/Formoterol Fumarate 2 puff 09/14/18 20:00 Symbicort 160-4.5 Mcg Inhaler INHALATION RT-BID ERICA Ergocalciferol 50,000 unit 09/16/18 09:00 Vitamin D2 PO SA ERICA Famotidine 20 mg 09/14/18 10:27 Pepcid PO HS PRN Heartburn Ferrous Sulfate 325 mg 09/14/18 17:30 Feosol PO W/SUPPER ERICA Furosemide 40 mg 09/13/18 16:00 09/14/18 04:55 Lasix IV 40 mg Q12H ERICA Administration Levothyroxine Sodium 100 mcg 09/14/18 10:30 Synthroid PO 0630 ERICA Loratadine 10 mg 09/14/18 10:27 Claritin PO HS PRN Allergy Symptoms Metoprolol Succinate 25 mg 09/14/18 12:00 Toprol Xl PO DAILY@1200 ERICA Montelukast Sodium 10 mg 09/14/18 21:00 Singulair PO HS ERICA Pantoprazole Sodium 40 mg 09/14/18 17:30 Protonix PO AC-BID ERICA Potassium Chloride 10 meq 09/14/18 12:00 K-Dur 10 PO DAILY@1200 [facility] Prednisone 15 mg 09/14/18 12:00 PO DAILY@1200 [facility] Sertraline HCl 200 mg 09/14/18 17:30 Zoloft PO AC-SUPPER ERICA Spironolactone 25 mg 09/13/18 21:00 09/14/18 00:01 Aldactone PO 25 mg HS ERICA Administration Intake and Output 09/13/18 09/14/18 09/14/18 22:59 06:59 14:59 Intake Total 80 240 Output Total 010 958 [id number] Balance -400 -420 -2160 Intake: Oral 80 240 Output: Urine 707 622 5547 Other: # Voids 1 # Bowel Movements 0 Weight 88.5 kg 09/13/18 14:15 09/13/18 14:15 EKG Interpretations (text) EKG shows normal sinus rhythm with a left bundle-branch block pattern Assessment and Plan Plan: assessment and plan #1 diastolic congestive heart failure acute on chronic #2 exacerbation of asthma, history also of bronchiolitis obliterans organizing pneumonia #3 Hodgkin's lymphoma history #4 hyperlipidemia #5 history of breast CA with prior mastectomy #6 nonischemic cardiomyopathy #7 hypothyroidism #8 aortic insufficiency, nonrheumatic Plan We will continue the patient on current dose of IV Lasix. patient's shortness of breath likely secondary to congestive heart failure and her progressive bronchiolitis obliterans organizing pneumonia. Checked daily lytes BUN and creatinine, monitor intake and output and daily weights. Recent echo was performed in May, we will not repeat an echo this admission. Further recommendations to follow. DNP note has been reviewed, I agree with a documented findings and plan of care. Patient was seen and examined.
[2018-09-14] MEDS ORDERED: predniSONE 10 MG TAB PO SCH (12:00)
[2018-09-14] MEDS: IPRATROPIUM-ALBUTEROL 3 ML NEB INHALATION SCH ×3 (12:01→21:16)
[2018-09-14] MEDS: POTASSIUM CHLORIDE ER 10 MEQ TAB.ER.PRT PO SCH (12:09)
[2018-09-14] MEDS: LEVOTHYROXINE 100 MCG TAB PO SCH (12:09)
[2018-09-14] MEDS: METOPROLOL SUCCINATE (ER) 25 MG TAB.ER.24H PO SCH (12:10)
[2018-09-14] MEDS: ARIPiprazole 2 MG TAB PO SCH (12:11)
[2018-09-14] MEDS: HYDROcodone/APAP 7.5-325MG 1 EACH TAB PO PRN ×2 (12:11→18:34)
--- NOTE | 2018-09-14 13:06 | P.HPIM ---
History of Present Illness H&P Date: 09/14/18 Chief Complaint: worsening shortness of breath 2 weeks this is a 63-year-old female with a known past medical history of hyperlipidemia , nonischemic cardiomyopathy, hypothyroidism, breast cancer with prior mastectomy, aortic valve insufficiency, hypotension we'll follow along as patient has undergone chemotherapy and radiation treatment, obstructive sleep apnea, BOOP( bronchiolitis obliterans organizing pneumonia), thoracic spinal fracture and wears back brace and history of asthma. Patient presents to the emergency room with complaints of worsening shortness of breath over the last 2 weeks. She reports some left-sided rib pain. She does have a cough. She's also noted increase in her lower extremity edema. She has difficulty laying flat. Also increase shortness of breath with activity. Chest x-ray on admission showed cardiomegaly and chronic parenchymal change with persistent small left pleural effusion and associated left basal atelectasis. Mild diffuse interstitial edema felt to be present bilaterally. Correlate for fluid overload and congestive heart failure exacerbation on top for chronic disease. Pulmonary and cardiology consulted. Patient did have elevated BNP level. She started on IV Lasix. Echo from May showed an EF of 50-55%. Patient denies any fever, chills, sweats. Denies any nausea or vomiting. Denies any bowel movement changes or urinary symptoms. Review of Systems please refer to HPI otherwise unremarkable Past Medical History Past Medical History: Asthma, Cancer, Heart Failure, GERD/Reflux, Hyperlipidemia , Hypertension, Sleep Apnea/CPAP/BIPAP, Thyroid Disorder Additional Past Medical History / Comment(s): BOOP. CHF, echo showed EF 50-55%, anemia, multiple thoracic compression fractures with T8 being worsewears brace, past herpes simplex type I L buttock which was tx . Other hx:1978 Hodgkins Lymphoma status post chemo and radiation chest area in 1978; L Breast CA-status post mastectomy(sx only), R renal carcinoma with partial nephrectomy, BOOP, home 02 prn, ASHKAN with CPAP use, hypothyroid, chronic back pain, recently given a back brace, osteoporosis. History of Any Multi-Drug Resistant Organisms: None Reported Past Surgical History: Adenoidectomy, Breast Surgery, Section, Hysterectomy, Orthopedic Surgery, Tonsillectomy Additional Past Surgical History / Comment(s): Spleenectomy, laparotomy, colonoscopy, EGD, bilateral 5th toe surgery for spurs, L breast mastectomy with breast reconstruction, bronchoscopy/lung bx, rt kidney partial nephrectomy, bilateral cataract removals with lens implants. Past Anesthesia/Blood Transfusion Reactions: No Reported Reaction Additional Past Anesthesia/Blood Transfusion Reaction / Comment(s): clausterphobia (mri's) Smoking Status: Former smoker - Past Family History Mother Family Medical History: Osteoarthritis (OA) Additional Family Medical History / Comment(s): glaucoma Brother(s) Additional Family Medical History / Comment(s): MS Father Family Medical History: Liver Disease, Myocardial Infarction ([place]) Additional Family Medical History / Comment(s): age 70 -mi, alcoholic Medications and Allergies Home Medications Medication Instructions Recorded Confirmed Type Budesonide-Formot 160-4.5 Mcg 2 puff INHALATION RT-BID 10/05/16 09/13/18 History [Symbicort 160-4.5 Mcg Inhaler] Levothyroxine Sodium [Synthroid] 100 mcg PO DAILY 10/05/16 09/13/18 History Metoprolol Succinate (ER) [Toprol 25 mg PO DAILY@1200 10/05/16 09/13/18 History XL] Montelukast [Singulair] 10 mg PO HS 10/05/16 09/13/18 History Sertraline [Zoloft] 200 mg PO AC-SUPPER 10/05/16 09/13/18 History Simvastatin [Zocor] 40 mg PO HS 10/05/16 09/13/18 History ARIPiprazole [Abilify] 2 mg PO DAILY 04/06/17 09/13/18 History Albuterol Sulfate [Proair Hfa] 2 puff INHALATION RT-Q6H PRN 04/06/17 09/13/18 History Acyclovir 400 mg PO DAILY PRN 05/13/17 09/13/18 History Acyclovir [Zovirax] 1 applic TOPICAL 5XD PRN 05/13/17 09/13/18 History Cetirizine HCl [Zyrtec] 10 mg PO HS PRN 05/13/17 09/13/18 History Ranitidine HCl [Zantac] 150 mg PO HS PRN 05/13/17 09/13/18 History ALPRAZolam [Xanax] 0.5 mg PO Q8H PRN 06/19/18 09/13/18 History Ergocalciferol [Vitamin D2 50,000 unit PO SA 06/19/18 09/13/18 History (DRISDOL)] Omeprazole 40 mg PO BID 06/19/18 09/13/18 History HYDROcodone/APAP 7.5-325MG [[place] 1 tab PO Q6H PRN 07/03/18 09/13/18 History 7.5-325] Ipratropium-Albuterol Nebulize 3 ml INHALATION RT-QID ampul.neb 07/09/18 Rx [Duoneb 0.5 mg-3 mg/3 ml Soln] Ferrous Sulfate [Iron (65 MG 325 mg PO W/SUPPER 09/13/18 09/13/18 History Elemental)] Furosemide [Lasix] 40 mg PO DAILY@1200 09/13/18 09/13/18 History Potassium Chloride [K-Tab ER] 10 meq PO DAILY@1200 09/13/18 09/13/18 History Spironolactone [Aldactone] 25 mg PO HS 09/13/18 09/13/18 History predniSONE 15 mg PO DAILY@1200 09/13/18 09/13/18 History Allergies Allergy/AdvReac Type Severity Reaction Status Date / Time No Known Allergies Allergy Verified 09/13/18 13:54 Physical Exam Vitals: Vital Signs Temp Pulse Pulse Resp BP BP Pulse Ox 09/14/18 12:15 101 H 18 09/14/18 12:02 98 16 09/14/18 11:31 98.3 F 107 H 24 127/56 97 09/14/18 08:53 99 18 98 09/14/18 08:15 98.2 F 103 H 20 113/57 100 09/14/18 08:00 18 09/14/18 04:00 98.1 F 94 18 112/57 97 09/14/18 00:00 98.4 F 93 20 104/56 97 09/13/18 22:54 98.3 F 90 20 145/75 09/13/18 19:53 96 24 110/64 97 09/13/18 17:00 103 H 24 156/65 95 09/13/18 16:00 89 26 H 121/63 100 09/13/18 15:00 90 22 100/52 100 09/13/18 14:00 98 24 126/77 99 09/13/18 13:19 97.7 F 100 24 130/65 96 Intake and Output 09/13/18 09/14/18 09/14/18 22:59 06:59 14:59 Intake Total 80 240 Output Total 108 621 3730 Balance -567 -783 -4721 Intake: Oral 80 240 Output: Urine 655 756 1801 Other: # Voids 1 # Bowel Movements 0 Weight 88.5 kg Head normocephalic Neck supple Lungs decreased breath sounds bilaterally with a few coarse breath sounds at the bases Heart regular rate and rhythm S1-S2, no rub or galloppositive murmur Abdomen is soft nontender nondistended positive bowel sounds no hepatosplenomegaly Extremities +1edemabilaterally Neuro alert and orientated to 3 Results CBC & Chem 7: 09/13/18 14:15 09/13/18 14:15 Labs: Abnormal Lab Results - Last 24 Hours (Table) 09/13/18 09/13/18 09/13/18 Range/Units 14:15 14:15 14:15 WBC 13.0 H (3.8-10.6) k/uL Hgb 10.4 L (11.4-16.0) gm/dL MCHC 30.3 L (31.0-37.0) g/dL RDW 17.3 H (11.5-15.5) % Neutrophils # 9.9 H (1.3-7.7) k/uL APTT (22.0-30.0) sec Carbon Dioxide 33 H (22-30) mmol/L BUN 21 H (7-17) mg/dL Glucose 100 H (74-99) mg/dL Total Creatine Kinase <20 L (30-135) U/L 09/13/18 Range/Units 14:15 WBC (3.8-10.6) k/uL Hgb (11.4-16.0) gm/dL MCHC (31.0-37.0) g/dL RDW (11.5-15.5) % Neutrophils # (1.3-7.7) k/uL APTT 21.8 L (22.0-30.0) sec Carbon Dioxide (22-30) mmol/L BUN (7-17) mg/dL Glucose (74-99) mg/dL Total Creatine Kinase (30-135) U/L Thrombosis Risk Factor Assmnt - Choose All That Apply Any of the Below Risk Factors Present?: Yes Each Factor Represents 1 point: Heart failure (<1month), Obesity (BMI >25), Swollen legs (current) Other Risk Factors: Yes Each Risk Factor Represents 2 Points: Age 61-74 years Other congenital or acquired thrombophilia - If yes, enter type in comment: No Thrombosis Risk Factor Assessment Total Risk Factor Score: 5 Thrombosis Risk Factor Assessment Level: High Risk Assessment and Plan Assessment: 1. Acute on chronic diastolic congestive heart failure exacerbation: Patient did have CHF findings on chest x-ray and elevated BNP. Started on IV Lasix 40 mg every 12 hours. Echo completed in May that showed an EF of 50-55%. Cardiology following. 2. history of bronchiolitis obliterans organizing pneumonia. Consult pulmonary service 3. History of Hodgkin lymphoma status post chemo and radiation treatment in 1978 4. History of breast cancer status post mastectomy 5. History of renal cancer status post partial nephrectomy 6. History of essential hypertension 7. Hyperlipidemia 8. T8 compression fracture continue using back brace 9. Leukocytosis likely related to steroids patient is chronically on prednisone for her bronchiolitis obliterans organizing pneumonia 10. Hypothyroidism continue Synthroid 11. Chronic persistent asthma continue her DuoNeb updraft treatments GI prophylaxis Pepcid and DVT prophylaxis subcu heparin Time with Patient: Greater than 30 (Greater than 60% of the total time spent in counseling and coordination of care.I performed an examination of the patient and discussed their management with the physician Manager Lvn. I have reviewed the Physician Manager Lvn's notes and agree with the documented findings and plan of care)
--- NOTE | 2018-09-14 14:32 | P.CNPUL ---
History of Present Illness Consult date: 09/14/18 Requesting physician: Deo Epps Reason for consult: dyspnea, abnormal CXR/CT Chief complaint: Shortness of breath, left pleuritic chest pain, CHF, peripheral edema History of present illness: This is 63-year-old white female patient of Dr. Naqvi, who presented emergency department on 09/13/2018 for evaluation of worsening shortness of breath, swelling in both leg, weight gain, although about 7 pounds over one week's period of time, cough, yellow phlegm production and pain over left side of her chest worsened with deep inspiration. She states her shortness of breath is worse with lying flat. Patient has an underlying history of Barnett proven bronchiolitis obliterans organizing pneumonia, history of left wrist cancer, status post mastectomy, and reconstructive surgery, Hodgkin's lymphoma status post radiation, GERD, hypertension, hyperlipidemia, obstructive sleep apnea on CPAP therapy, congestive heart failure with diastolic dysfunction, Yuri's thyroiditis, chronic bronchial asthma and depression. She follows with Dr. Valadez in the pulmonary office. Her maintenance medications include Symbicort, Singulair, albuterol, patient is on maintenance prednisone dose, currently at 15 mg daily. She was recently hospitalized with right upper lobe healthcare acquired pneumonia, she was treated with broad-spectrum antibiotics including Zosyn and Levaquin, cultures from that admission were all negative. Patient was sent to rehab after discharge, and she is only been home for the last 3 weeks. Yesterday she went to the pulmonary office for pulmonary function test, however in view of her increasing shortness of breath she was sent to the emergency department for further evaluation and treatment. Chest x-ray was completed, and showed cardiomegaly, chronic parenchymal changes with persistent small left pleural effusion, and associated left basilar atelectasis and/or infiltrate. New mild diffuse interstitial edema was noted bilaterally. Changes are consistent with fluid overload, and CHF exacerbation. Lab work showed WBC of 14.6, hemoglobin 10.5, platelets 517, sodium was 139, potassium is 4.7, BUN was 37 creatinine is 1.1, proBNP was elevated at 1280, and troponin was negative 1. Follow-up blood work shows WBC of 13, hemoglobin of 10.4, sodium is 140, potassium is 3.8, CO2 of 33, BUN is 21, creatinine 0.82. Patient was started on IV Lasix. She is diuresing, and she is feeling better today. We were asked to see the patient in consultation for shortness of breath. Review of Systems All systems: negative Constitutional: Denies chills, Denies fever Eyes: denies blurred vision, denies pain Ears, nose, mouth and throat: Denies headache, Denies sore throat Cardiovascular: Denies chest pain, Denies shortness of breath Respiratory: Reports dyspnea, Denies cough Gastrointestinal: Denies abdominal pain, Denies diarrhea, Denies nausea, Denies vomiting Genitourinary: Denies dysuria, Denies hematuria Musculoskeletal: Denies myalgias Integumentary: Denies pruritus, Denies rash Neurological: Denies numbness, Denies weakness Psychiatric: Denies anxiety, Denies depression Endocrine: Denies fatigue, Denies weight change Past Medical History Past Medical History: Asthma, Cancer, Heart Failure, GERD/Reflux, Hyperlipidemia , Hypertension, Sleep Apnea/CPAP/BIPAP, Thyroid Disorder Additional Past Medical History / Comment(s): BOOP. CHF, echo showed EF 50-55%, anemia, multiple thoracic compression fractures with T8 being worsewears brace, past herpes simplex type I L buttock which was tx . Other hx:1978 Hodgkins Lymphoma status post chemo and radiation chest area in 1978; L Breast CA-status post mastectomy(sx only), R renal carcinoma with partial nephrectomy, BOOP, home 02 prn, ASHKAN with CPAP use, hypothyroid, chronic back pain, recently given a back brace, osteoporosis. History of Any Multi-Drug Resistant Organisms: None Reported Past Surgical History: Adenoidectomy, Breast Surgery, Section, Hysterectomy, Orthopedic Surgery, Tonsillectomy Additional Past Surgical History / Comment(s): Spleenectomy, laparotomy, colonoscopy, EGD, bilateral 5th toe surgery for spurs, L breast mastectomy with breast reconstruction, bronchoscopy/lung bx, rt kidney partial nephrectomy, bilateral cataract removals with lens implants. Past Anesthesia/Blood Transfusion Reactions: No Reported Reaction Additional Past Anesthesia/Blood Transfusion Reaction / Comment(s): clausterphobia (mri's) Smoking Status: Former smoker - Past Family History Mother Family Medical History: Osteoarthritis (OA) Additional Family Medical History / Comment(s): glaucoma Brother(s) Additional Family Medical History / Comment(s): MS Father Family Medical History: Liver Disease, Myocardial Infarction ([place]) Additional Family Medical History / Comment(s): age 70 -mi, alcoholic Medications and Allergies Home Medications Medication Instructions Recorded Confirmed Type Budesonide-Formot 160-4.5 Mcg 2 puff INHALATION RT-BID 10/05/16 09/13/18 History [Symbicort 160-4.5 Mcg Inhaler] Levothyroxine Sodium [Synthroid] 100 mcg PO DAILY 10/05/16 09/13/18 History Metoprolol Succinate (ER) [Toprol 25 mg PO DAILY@1200 10/05/16 09/13/18 History XL] Montelukast [Singulair] 10 mg PO HS 10/05/16 09/13/18 History Sertraline [Zoloft] 200 mg PO AC-SUPPER 10/05/16 09/13/18 History Simvastatin [Zocor] 40 mg PO HS 10/05/16 09/13/18 History ARIPiprazole [Abilify] 2 mg PO DAILY 04/06/17 09/13/18 History Albuterol Sulfate [Proair Hfa] 2 puff INHALATION RT-Q6H PRN 04/06/17 09/13/18 History Acyclovir 400 mg PO DAILY PRN 05/13/17 09/13/18 History Acyclovir [Zovirax] 1 applic TOPICAL 5XD PRN 05/13/17 09/13/18 History Cetirizine HCl [Zyrtec] 10 mg PO HS PRN 05/13/17 09/13/18 History Ranitidine HCl [Zantac] 150 mg PO HS PRN 05/13/17 09/13/18 History ALPRAZolam [Xanax] 0.5 mg PO Q8H PRN 06/19/18 09/13/18 History Ergocalciferol [Vitamin D2 50,000 unit PO SA 06/19/18 09/13/18 History (DRISDOL)] Omeprazole 40 mg PO BID 06/19/18 09/13/18 History HYDROcodone/APAP 7.5-325MG [[place] 1 tab PO Q6H PRN 07/03/18 09/13/18 History 7.5-325] Ipratropium-Albuterol Nebulize 3 ml INHALATION RT-QID ampul.neb 07/09/18 Rx [Duoneb 0.5 mg-3 mg/3 ml Soln] Ferrous Sulfate [Iron (65 MG 325 mg PO W/SUPPER 09/13/18 09/13/18 History Elemental)] Furosemide [Lasix] 40 mg PO DAILY@1200 09/13/18 09/13/18 History Potassium Chloride [K-Tab ER] 10 meq PO DAILY@1200 09/13/18 09/13/18 History Spironolactone [Aldactone] 25 mg PO HS 09/13/18 09/13/18 History predniSONE 15 mg PO DAILY@1200 09/13/18 09/13/18 History Allergies Allergy/AdvReac Type Severity Reaction Status Date / Time No Known Allergies Allergy Verified 09/13/18 13:54 Physical Exam Vitals: Vital Signs Temp Pulse Pulse Resp BP BP Pulse Ox 09/14/18 12:15 101 H 18 09/14/18 12:02 98 16 09/14/18 11:31 98.3 F 107 H 24 127/56 97 09/14/18 08:53 99 18 98 09/14/18 08:15 98.2 F 103 H 20 113/57 100 09/14/18 08:00 18 09/14/18 04:00 98.1 F 94 18 112/57 97 09/14/18 00:00 98.4 F 93 20 104/56 97 09/13/18 22:54 98.3 F 90 20 145/75 09/13/18 19:53 96 24 110/64 97 09/13/18 17:00 103 H 24 156/65 95 09/13/18 16:00 89 26 H 121/63 100 09/13/18 15:00 90 22 100/52 100 Intake and Output 09/13/18 09/14/18 09/14/18 22:59 06:59 14:59 Intake Total 80 440 Output Total 548 225 1159 Balance -400 420 2460 Intake: Oral 80 440 Output: Urine 805 744 3542 Other: # Voids 1 # Bowel Movements 0 Weight 88.5 kg GENERAL EXAM: Alert, pleasant 63-year-old white female, currently on 2 L per nasal cannula, comfortable in no apparent distress. HEAD: Normocephalic/atraumatic. EYES: Normal reaction of pupils, equal size. Conjunctiva pink, sclera white. NOSE: Clear with pink turbinates. THROAT: No erythema or exudates. NECK: No masses, no JVD, no thyroid enlargement, no adenopathy. CHEST: No chest wall deformity. Symmetrical expansion. LUNGS: Equal air entry with coarse crackles in bilateral bases CVS: Regular rate and rhythm, normal S1 and S2, no gallops, no murmurs, no rubs ABDOMEN: Soft, nontender. No hepatosplenomegaly, normal bowel sounds, no guarding or rigidity. EXTREMITIES: No clubbing, 1+ bilateral lower extremity edema, no cyanosis, 2+ pulses and upper and lower extremities. MUSCULOSKELETAL: Muscle strength and tone normal. SPINE: No scoliosis or deformity SKIN: No rashes CENTRAL NERVOUS SYSTEM: Alert and oriented -3. No focal deficits, tone is normal in all 4 extremities. PSYCHIATRIC: Alert and oriented -3. Appropriate affect. Intact judgment and insight. Results - Laboratory Findings CBC and BMP: 09/13/18 14:15 09/13/18 14:15 PT/INR, D-dimer PT 9.8 sec (9.0-12.0) 09/13/18 14:15 INR 1.0 (<1.2) 09/13/18 14:15 Abnormal lab findings: Abnormal Labs 09/13/18 09/13/18 09/13/18 14:15 14:15 14:15 WBC 13.0 H Hgb 10.4 L MCHC 30.3 L RDW 17.3 H Neutrophils # 9.9 H APTT Carbon Dioxide 33 H BUN 21 H Glucose 100 H Total Creatine Kinase <20 L 09/13/18 14:15 WBC Hgb MCHC RDW Neutrophils # APTT 21.8 L Carbon Dioxide BUN Glucose Total Creatine Kinase - Diagnostic Findings Chest x-ray: report reviewed Additional studies: EKG reviewed Assessment and Plan Plan: Assessment: #1. Acute exacerbation of chronic congestive heart failure with preserved left ventricular systolic function as previously noted #2. History of bronchiolitis obliterans organizing pneumonia #3. History of Hodgkin's lymphoma status post radiation #4. Hypertension, hyperlipidemia #5. 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 Hypothyroidism #7. Recent hospitalization for healthcare acquired pneumonia #8. Obstructive sleep apnea on CPAP therapy #9. History of renal cancer status post right nephrectomy #10. History of anxiety/depression Plan: Continue IV diuretics, continue Symbicort, nebulized bronchodilators, patient's maintenance dose of prednisone 50 mg will be cutdown to 10 mg daily. Patient is afebrile, no significant leukocytosis, or significant chest congestion. Continue GI and DVT prophylaxis. We'll continue to follow. I performed a history & physical examination of the patient and discussed their management with my nurse practitioner, Esther Yusuf. I reviewed the nurse practitioner's note and agree with the documented findings and plan of care. Lung sounds are positive for bibasilar crackles. The findings and the impression was discussed with the patient. I attest to the documentation by the nurse practitioner. Time with Patient: Greater than 30
[2018-09-14 15:41] VITALS: BMI 35.6
[2018-09-14] MEDS: FERROUS SULFATE 325 MG TAB PO SCH (18:31)
[2018-09-14] MEDS: PANTOPRAZOLE 40 MG TABLET PO SCH (18:32)
[2018-09-14] MEDS: SERTRALINE 100 MG TAB PO SCH (18:35)
[2018-09-14] MEDS: HEPARIN SODIUM,PORCINE 5,000 UNIT/ML 1 ML VIAL SQ SCH (20:38)
[2018-09-14] MEDS: MONTELUKAST 10 MG TAB PO SCH (20:38)
[2018-09-14] MEDS: SYMBICORT 160-4.5 MCG INHALER INHALATION SCH (21:16)
[2018-09-15] MEDS: FUROSEMIDE 10 MG/ML 4 ML VIAL IV SCH ×2 (03:14→16:47)
[2018-09-15] MEDS: PANTOPRAZOLE 40 MG TABLET PO SCH ×2 (06:58→16:47)
[2018-09-15] MEDS: LEVOTHYROXINE 100 MCG TAB PO SCH (06:58)
[2018-09-15 07:14] LABS: Anisocytosis Slight; Basophils % (A) 0 %; Eosinophils # (A) 0.1 k/uL (0-0.7); Eosinophils % (A) 1 %; HCT 34.2 % (34.0-46.0); HGB 10.8 gm/dL (11.4-16.0); Hypochromasia Slight; Lymphocytes # (A) 1.7 k/uL (1.0-4.8); Lymphocytes % (A) 14 %; MCH 27.7 pg (25.0-35.0); MCHC 31.5 g/dL (31.0-37.0); MCV 87.8 fL (80.0-100.0); Mean Platelet Volume 6.7; Monocytes # (A) 0.5 k/uL (0-1.0); Monocytes % (A) 4 %; Neutrophils # (A) 9.6 k/uL (1.3-7.7); Neutrophils % (A) 81 %; Platelet Count 344 k/uL (150-450); RDW 17.1 % (11.5-15.5); WBC 11.9 k/uL (3.8-10.6)
[2018-09-15 07:30] LABS: ALT 28 U/L (9-52); AST 16 U/L (14-36); Albumin 3.6 g/dL (3.5-5.0); Alkaline Phosphatase 72 U/L (38-126); Anion Gap 8 mmol/L; Blood Urea Nitrogen 20 mg/dL (7-17); Calcium 9.5 mg/dL (8.4-10.2); Carbon Dioxide 39 mmol/L (22-30); Chloride 93 mmol/L (98-107); Glucose 94 mg/dL (74-99); Potassium 3.6 mmol/L (3.5-5.1); Sodium 140 mmol/L (137-145); Total Bilirubin 0.6 mg/dL (0.2-1.3); Total Protein 6.3 g/dL (6.3-8.2)
[2018-09-15] MEDS: IPRATROPIUM-ALBUTEROL 3 ML NEB INHALATION SCH ×4 (08:27→19:05)
[2018-09-15] MEDS: SYMBICORT 160-4.5 MCG INHALER INHALATION SCH ×2 (08:28→19:05)
[2018-09-15] MEDS: HYDROcodone/APAP 7.5-325MG 1 EACH TAB PO PRN ×2 (08:53→18:13)
[2018-09-15] MEDS: ARIPiprazole 2 MG TAB PO SCH (08:54)
[2018-09-15] MEDS: ALPRAZolam 0.5 MG TAB PO PRN ×2 (08:54→18:13)
[2018-09-15] MEDS: HEPARIN SODIUM,PORCINE 5,000 UNIT/ML 1 ML VIAL SQ SCH ×2 (08:54→19:51)
[2018-09-15] MEDS: METOPROLOL SUCCINATE (ER) 25 MG TAB.ER.24H PO SCH (11:21)
[2018-09-15] MEDS: POTASSIUM CHLORIDE ER 10 MEQ TAB.ER.PRT PO SCH (11:21)
[2018-09-15] MEDS: predniSONE 10 MG TAB PO SCH (11:21)
--- NOTE | 2018-09-15 11:42 | P.PN ---
Subjective Progress Note Date: 09/15/18 Principal diagnosis: Acute exacerbation of chronic congestive heart failure with preserved left ventricular systolic function This is 63-year-old white female patient of Dr. Naqvi, who presented emergency department on 09/13/2018 for evaluation of worsening shortness of breath, swelling in both leg, weight gain, although about 7 pounds over one week's period of time, cough, yellow phlegm production and pain over left side of her chest worsened with deep inspiration. She states her shortness of breath is worse with lying flat. Patient has an underlying history of Barnett proven bronchiolitis obliterans organizing pneumonia, history of left wrist cancer, status post mastectomy, and reconstructive surgery, Hodgkin's lymphoma status post radiation, GERD, hypertension, hyperlipidemia, obstructive sleep apnea on CPAP therapy, congestive heart failure with diastolic dysfunction, Yuri's thyroiditis, chronic bronchial asthma and depression. She follows with Dr. Valadez in the pulmonary office. Her maintenance medications include Symbicort, Singulair, albuterol, patient is on maintenance prednisone dose, currently at 15 mg daily. She was recently hospitalized with right upper lobe healthcare acquired pneumonia, she was treated with broad-spectrum antibiotics including Zosyn and Levaquin, cultures from that admission were all negative. Patient was sent to rehab after discharge, and she is only been home for the last 3 weeks. Yesterday she went to the pulmonary office for pulmonary function test, however in view of her increasing shortness of breath she was sent to the emergency department for further evaluation and treatment. Chest x-ray was completed, and showed cardiomegaly, chronic parenchymal changes with persistent small left pleural effusion, and associated left basilar atelectasis and/or infiltrate. New mild diffuse interstitial edema was noted bilaterally. Changes are consistent with fluid overload, and CHF exacerbation. Lab work showed WBC of 14.6, hemoglobin 10.5, platelets 517, sodium was 139, potassium is 4.7, BUN was 37 creatinine is 1.1, proBNP was elevated at 1280, and troponin was negative 1. Follow-up blood work shows WBC of 13, hemoglobin of 10.4, sodium is 140, potassium is 3.8, CO2 of 33, BUN is 21, creatinine 0.82. Patient was started on IV Lasix. She is diuresing, and she is feeling better today. We were asked to see the patient in consultation for shortness of breath. On 09/15/2018 patient seen in follow-up on selective care unit. He is diuresing , he is she is in -4120 ML net fluid balance over the last 24 hours, her weight is down 3 kg since admission. Still has the residual bilateral lower extremity swelling, but it is improving. Lung sounds are positive for bibasilar crackles , and some scattered wheezes. Yesterday we decreased the dose of maintenance prednisone 10 mg. Patient continues on IV diuretics, with Lasix 40 mg twice daily. Today's lab work has been reviewed, shows WBC trending down to 11.9, hemoglobin is 10.8, sodium is 140, potassium is 3.6, chloride is 93, CO2 is 29, BUN is 20, creatinine 0.74. LFTs are within normal limits. No new chest x- rays today. She continues on 3 L per nasal cannula, her pulse ox of 90%, no fever, no chills. Objective - Vital Signs Vital signs: Vital Signs Temp 97.9 F 09/15/18 08:00 Pulse 91 09/15/18 11:18 Resp 16 09/15/18 11:18 BP 97/52 09/15/18 11:18 Pulse Ox 98 09/15/18 11:18 Intake & Output 09/14/18 09/15/18 09/15/18 18:59 06:59 18:59 Intake Total 680 600 240 Output Total 3100 2300 1500 Balance -2420 -1700 -1260 Weight 88.5 kg 86.3 kg Intake: Oral 680 600 240 Output: Urine 3100 2300 1500 Other: Voiding Method Bedside Commode Bedside Commode Bedside Commode # Voids 3 # Bowel Movements 0 - Exam GENERAL EXAM: Alert, pleasant 63-year-old white female, currently on 2 L per nasal cannula, comfortable in no apparent distress. HEAD: Normocephalic/atraumatic. EYES: Normal reaction of pupils, equal size. Conjunctiva pink, sclera white. NOSE: Clear with pink turbinates. THROAT: No erythema or exudates. NECK: No masses, no JVD, no thyroid enlargement, no adenopathy. CHEST: No chest wall deformity. Symmetrical expansion. LUNGS: Equal air entry with coarse crackles in bilateral bases and some faint scattered wheezes CVS: Regular rate and rhythm, normal S1 and S2, no gallops, no murmurs, no rubs ABDOMEN: Soft, nontender. No hepatosplenomegaly, normal bowel sounds, no guarding or rigidity. EXTREMITIES: No clubbing, 1+ bilateral lower extremity edema, no cyanosis, 2+ pulses and upper and lower extremities. MUSCULOSKELETAL: Muscle strength and tone normal. SPINE: No scoliosis or deformity SKIN: No rashes CENTRAL NERVOUS SYSTEM: Alert and oriented -3. No focal deficits, tone is normal in all 4 extremities. PSYCHIATRIC: Alert and oriented -3. Appropriate affect. Intact judgment and insight. - Labs CBC & Chem 7: 09/15/18 06:22 09/15/18 06:22 Labs: Abnormal Lab Results - Last 24 Hours (Table) 09/15/18 09/15/18 Range/Units 06:22 06:22 WBC 11.9 H (3.8-10.6) k/uL Hgb 10.8 L (11.4-16.0) gm/dL RDW 17.1 H (11.5-15.5) % Neutrophils # 9.6 H (1.3-7.7) k/uL Chloride 93 L (98-107) mmol/L Carbon Dioxide 39 H (22-30) mmol/L BUN 20 H (7-17) mg/dL Assessment and Plan Plan: Assessment: #1. Acute exacerbation of chronic congestive heart failure with preserved left ventricular systolic function as previously noted #2. History of bronchiolitis obliterans organizing pneumonia #3. History of Hodgkin's lymphoma status post radiation #4. Hypertension, hyperlipidemia #5. 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 Hypothyroidism #7. Recent hospitalization for healthcare acquired pneumonia #8. Obstructive sleep apnea on CPAP therapy #9. History of renal cancer status post right nephrectomy #10. History of anxiety/depression Plan: Continue the IV diuretics, continue prednisone at 10 mg daily, continue Symbicort, nebulized bronchodilators. Patient is improving, no chest pain, no worsening shortness of breath, signs are stable. We'll continue to follow I performed a history & physical examination of the patient and discussed their management with my nurse practitioner, Esther Yusuf. I reviewed the nurse practitioner's note and agree with the documented findings and plan of care. Lung sounds are positive for bibasilar crackles and some faint wheezes The findings and the impression was discussed with the patient. I attest to the documentation by the nurse practitioner. Time with Patient: Less than 30
--- NOTE | 2018-09-15 12:34 | P.PN ---
Subjective Progress Note Date: 09/15/18 this is a 63-year-old female with a known past medical history of hyperlipidemia , nonischemic cardiomyopathy, hypothyroidism, breast cancer with prior mastectomy, aortic valve insufficiency, hypotension we'll follow along as patient has undergone chemotherapy and radiation treatment, obstructive sleep apnea, BOOP( bronchiolitis obliterans organizing pneumonia), thoracic spinal fracture and wears back brace and history of asthma. Patient presents to the emergency room with complaints of worsening shortness of breath over the last 2 weeks. She reports some left-sided rib pain. She does have a cough. She's also noted increase in her lower extremity edema. She has difficulty laying flat. Also increase shortness of breath with activity. Chest x-ray on admission showed cardiomegaly and chronic parenchymal change with persistent small left pleural effusion and associated left basal atelectasis. Mild diffuse interstitial edema felt to be present bilaterally. Correlate for fluid overload and congestive heart failure exacerbation on top for chronic disease. Pulmonary and cardiology consulted. Patient did have elevated BNP level. She started on IV Lasix. Echo from May showed an EF of 50-55%. Patient denies any fever, chills, sweats. Denies any nausea or vomiting. Denies any bowel movement changes or urinary symptoms. 09/15/2018 patient shortness of breath is showing some improvement. Still having some short of breath with activity. She is requiring 3 L of oxygen. She usually wears oxygen as needed home. Weight has decreased from 88.5 kg to 86.3 kg. Patient denies any chest pain. Denies any nausea or vomiting. No bowel movement today. Denies any burning with urination Objective - Vital Signs Vital signs: Vital Signs Temp 97.9 F 09/15/18 08:00 Pulse 100 09/15/18 12:17 Resp 16 09/15/18 11:53 BP 97/52 09/15/18 11:18 Pulse Ox 98 09/15/18 11:18 Intake & Output 09/14/18 09/15/18 09/15/18 18:59 06:59 18:59 Intake Total 680 600 240 Output Total 3100 2300 1500 Balance -0460 1700 -1260 Weight 88.5 kg 86.3 kg Intake: Oral 680 600 240 Output: Urine 3100 2300 1500 Other: Voiding Method Bedside Commode Bedside Commode Bedside Commode # Voids 3 # Bowel Movements 0 - Exam Head normocephalic Neck supple Lungs mild wheezes noted bilaterally Heart regular rate and rhythm S1-S2, no rub or gallop Abdomen is soft nontender nondistended positive bowel sounds no hepatosplenomegaly Extremities trace edema bilateral lower extremities Neuro alert and orientated to 3 - Labs CBC & Chem 7: 09/15/18 06:22 09/15/18 06:22 Labs: Abnormal Lab Results - Last 24 Hours (Table) 09/15/18 09/15/18 Range/Units 06:22 06:22 WBC 11.9 H (3.8-10.6) k/uL Hgb 10.8 L (11.4-16.0) gm/dL RDW 17.1 H (11.5-15.5) % Neutrophils # 9.6 H (1.3-7.7) k/uL Chloride 93 L (98-107) mmol/L Carbon Dioxide 39 H (22-30) mmol/L BUN 20 H (7-17) mg/dL Assessment and Plan Assessment: 1. Acute on chronic diastolic congestive heart failure exacerbation: Patient did have CHF findings on chest x-ray and elevated BNP. Started on IV Lasix 40 mg every 12 hours. Echo completed in May that showed an EF of 50-55%. Cardiology following. 2. history of bronchiolitis obliterans organizing pneumonia. Pulmonary following. They have decreased her prednisone 50 mg daily down to 10 mg daily 3. History of Hodgkin lymphoma status post chemo and radiation treatment in 1978 4. History of breast cancer status post mastectomy 5. History of renal cancer status post partial nephrectomy 6. History of essential hypertension 7. Hyperlipidemia 8. T8 compression fracture continue using back brace 9. Leukocytosis likely related to steroids patient is chronically on prednisone for her bronchiolitis obliterans organizing pneumonia 10. Hypothyroidism continue Synthroid 11. Chronic persistent asthma continue her DuoNeb updraft treatments GI prophylaxis Pepcid and DVT prophylaxis subcu heparin Consult physical therapy I performed an examination of the patient and discussed their management with the physician Transportation Coordinator. I have reviewed the Physician Transportation Coordinator's notes and agree with the documented findings and plan of care
--- NOTE | 2018-09-15 14:23 | P.PN ---
Subjective Progress Note Date: 09/15/18 Principal diagnosis: CHF This is a 63-year-old female who follows with Dr. Jasso in the office. She has a known history of hyperlipidemia, nonischemic cardio myopathy , hyperlipidemia, hypothyroidism, history of breast cancer with prior mastectomy , aortic valve insufficiency, nonrheumatic, Hodgkin's lymphoma for which the patient has undergone chemotherapyand radiation,obstructive sleep apnea,BOOP( bronchiolitis obliterans organizing pneumonia) and asthma.she presents to the hospital on this occasion with symptoms of progressively worsening shortness of breath, PND and orthopnea, peripheral edema.chest x-ray on admission showed cardiomegaly and chronic parenchymal changes with persistent small left pleural effusion and associated left basilar atelectasis. Mild diffuse interstitial edema is felt to be present bilaterally. Correlate for fluid overload and congestive heart failure exacerbation on top of her chronic disease.EKG shows normal sinus rhythm with a left bundle-branch block pattern.laboratory data, white blood cell count 13.0, hemoglobin 10.4, platelet count 392. Sodium 140, potassium 3.8, BUN 21, creatinine 0.8.troponin 0.012 and BNP level 1280.most recent echocardiogram with Doppler study was performed in May of this year which revealed an ejection fraction of 50-55%. At the time of my examination, Patient states she is still quite short of breath, does not feel any better than when she presented here in spite of the fact that the patient has been given IV Lasix.she did put out good urine through the night last night her weight is down 1 kg today. 09/15/2018 Patient was seen and examined this morning, diuresed well over the night last night. Her weight is down 2 kg today. Creatinine 0.4. Blood pressure 97/ 50.heart rate low 100s. 98% on 2 L of oxygen.White blood cell count 11.9, hemoglobin 10.8, platelet count 344. Sodium 140, potassium 3.6, BUN 20, creatinine 0.7.continues to be on IV Lasix 40 mg every 12 hours. We will continue this for another 24 hours. Repeat chest x-ray in the morning. Objective - Vital Signs Vital signs: Vital Signs Temp 97.9 F 09/15/18 08:00 Pulse 100 09/15/18 12:17 Resp 16 09/15/18 11:53 BP 97/52 09/15/18 11:18 Pulse Ox 98 09/15/18 11:18 Intake & Output 09/14/18 09/15/18 09/15/18 18:59 06:59 18:59 Intake Total 680 600 240 Output Total 3100 2300 1500 Balance -2420 -1700 -1260 Weight 88.5 kg 86.3 kg Intake: Oral 680 600 240 Output: Urine 3100 2300 1500 Other: Voiding Method Bedside Commode Bedside Commode Bedside Commode # Voids 3 # Bowel Movements 0 - Exam PHYSICAL EXAMINATION: GENERAL:63-year-old female in no acute distress at the time of my examination HEENT: Head is atraumatic, normocephalic. Pupils equal, round. Sclera anicteric. Conjunctiva are clear. Mucous membranes of the mouth are moist. Neck is supple. There is elevated jugular venous pressure.No carotid bruit is heard. HEART EXAMINATION:heart S1-S2 systolic murmur is heard at the base.] CHEST EXAMINATION:Lungs reveal improvement in air exchange bilaterally.] ABDOMEN: [ Soft, nontender. Bowel sounds are heard. No organomegaly noted]. EXTREMITIES:[ 2+ peripheral pulses with trace evidence of peripheral edema . NEUROLOGIC [patient is awake, alert and oriented X3.] - Labs CBC & Chem 7: 09/15/18 06:22 09/15/18 06:22 Labs: Abnormal Lab Results - Last 24 Hours (Table) 09/15/18 09/15/18 Range/Units 06:22 06:22 WBC 11.9 H (3.8-10.6) k/uL Hgb 10.8 L (11.4-16.0) gm/dL RDW 17.1 H (11.5-15.5) % Neutrophils # 9.6 H (1.3-7.7) k/uL Chloride 93 L (98-107) mmol/L Carbon Dioxide 39 H (22-30) mmol/L BUN 20 H (7-17) mg/dL Assessment and Plan Plan: assessment and plan #1 diastolic congestive heart failure acute on chronic #2 exacerbation of asthma, history also of bronchiolitis obliterans organizing pneumonia #3 Hodgkin's lymphoma history #4 hyperlipidemia #5 history of breast CA with prior mastectomy #6 nonischemic cardiomyopathy #7 hypothyroidism #8 aortic insufficiency, nonrheumatic Plan We will continue the patient on current dose of IV Lasix. patient's shortness of breath likely secondary to congestive heart failure and her progressive bronchiolitis obliterans organizing pneumonia. Checked daily lytes BUN and creatinine, monitor intake and output and daily weights. Recent echo was performed in May, we will not repeat an echo this admission. repeat chest x- ray in the morning.Further recommendations to follow. DNP note has been reviewed, I agree with a documented findings and plan of care. Patient was seen and examined.
[2018-09-15] MEDS: SERTRALINE 100 MG TAB PO SCH (16:47)
[2018-09-15] MEDS: FERROUS SULFATE 325 MG TAB PO SCH (16:47)
[2018-09-15] MEDS: ATORVASTATIN 20 MG TAB PO SCH (19:51)
[2018-09-15] MEDS: SPIRONOLACTONE 25 MG TAB PO SCH (19:51)
[2018-09-15] MEDS: MONTELUKAST 10 MG TAB PO SCH (19:51)
[2018-09-16] MEDS: FUROSEMIDE 10 MG/ML 4 ML VIAL IV SCH ×2 (05:25→15:10)
[2018-09-16] MEDS: PANTOPRAZOLE 40 MG TABLET PO SCH ×2 (05:25→17:11)
[2018-09-16] MEDS: ALPRAZolam 0.5 MG TAB PO PRN ×3 (05:25→21:22)
[2018-09-16] MEDS: LEVOTHYROXINE 100 MCG TAB PO SCH (05:26)
[2018-09-16] MEDS: HYDROcodone/APAP 7.5-325MG 1 EACH TAB PO PRN ×3 (05:26→21:21)
[2018-09-16 07:04] LABS: Anisocytosis Slight; Basophils % (A) 0 %; Eosinophils # (A) 0.1 k/uL (0-0.7); Eosinophils % (A) 1 %; HCT 34.8 % (34.0-46.0); HGB 10.8 gm/dL (11.4-16.0); Hypochromasia Slight; Lymphocytes # (A) 1.4 k/uL (1.0-4.8); Lymphocytes % (A) 12 %; MCHC 31.1 g/dL (31.0-37.0); MCV 86.9 fL (80.0-100.0); Mean Platelet Volume 6.9; Monocytes # (A) 0.4 k/uL (0-1.0); Monocytes % (A) 3 %; Neutrophils # (A) 9.8 k/uL (1.3-7.7); Neutrophils % (A) 83 %; Platelet Count 369 k/uL (150-450); RBC 4.01 m/uL (3.80-5.40); RDW 16.8 % (11.5-15.5); WBC 11.7 k/uL (3.8-10.6)
[2018-09-16 07:22] LABS: Albumin 3.6 g/dL (3.5-5.0); Calcium 9.6 mg/dL (8.4-10.2); Potassium 3.9 mmol/L (3.5-5.1); Total Bilirubin 0.4 mg/dL (0.2-1.3); Total Protein 6.4 g/dL (6.3-8.2)
[2018-09-16] MEDS ORDERED: ERGOCALCIFEROL 50,000 UNIT CAP PO SCH (09:00)
[2018-09-16] MEDS: ARIPiprazole 2 MG TAB PO SCH (09:10)
[2018-09-16] MEDS: HEPARIN SODIUM,PORCINE 5,000 UNIT/ML 1 ML VIAL SQ SCH ×2 (09:10→21:21)
[2018-09-16] MEDS: SYMBICORT 160-4.5 MCG INHALER INHALATION SCH ×2 (09:10→20:23)
[2018-09-16] MEDS: IPRATROPIUM-ALBUTEROL 3 ML NEB INHALATION SCH ×4 (09:10→20:23)
[2018-09-16] MEDS: POTASSIUM CHLORIDE ER 10 MEQ TAB.ER.PRT PO SCH (09:11)
[2018-09-16] MEDS: METOPROLOL SUCCINATE (ER) 25 MG TAB.ER.24H PO SCH (09:11)
[2018-09-16] MEDS: predniSONE 10 MG TAB PO SCH (09:12)
--- NOTE | 2018-09-16 11:58 | P.PN ---
Subjective Progress Note Date: 09/16/18 Principal diagnosis: CHF This is a 63-year-old female who follows with Dr. Jasso in the office. She has a known history of hyperlipidemia, nonischemic cardio myopathy , hyperlipidemia, hypothyroidism, history of breast cancer with prior mastectomy , aortic valve insufficiency, nonrheumatic, Hodgkin's lymphoma for which the patient has undergone chemotherapyand radiation,obstructive sleep apnea,BOOP( bronchiolitis obliterans organizing pneumonia) and asthma.she presents to the hospital on this occasion with symptoms of progressively worsening shortness of breath, PND and orthopnea, peripheral edema.chest x-ray on admission showed cardiomegaly and chronic parenchymal changes with persistent small left pleural effusion and associated left basilar atelectasis. Mild diffuse interstitial edema is felt to be present bilaterally. Correlate for fluid overload and congestive heart failure exacerbation on top of her chronic disease.EKG shows normal sinus rhythm with a left bundle-branch block pattern. BNP level 1280. Most recent echocardiogram with Doppler study was performed in May of this year which revealed an ejection fraction of 50-55%. She remains on Lasix 40 mg IV push every 12 hours. Weight is down 2.5 kg. Upon examination, patient continues to feel short of breath with activity. Feels that she is not significantly better compared to yesterday. Objective - Vital Signs Vital signs: Vital Signs Temp 98.7 F 09/16/18 08:00 Pulse 79 09/16/18 11:30 Resp 16 09/16/18 11:30 BP 100/55 09/16/18 11:06 Pulse Ox 98 09/16/18 11:06 Intake & Output 09/15/18 09/16/18 09/16/18 18:59 06:59 18:59 Intake Total 600 Output Total 1500 1800 Balance -900 -1800 Weight 86 kg Intake: Oral 600 Output: Urine 1500 1800 Other: Voiding Method Bedside Commode Bedside Commode Bedside Commode # Voids 0 1 # Bowel Movements 0 - Exam PHYSICAL EXAMINATION: HEENT: Head is atraumatic, normocephalic. Pupils equal, round. Neck is supple. There is no elevated jugular venous pressure. HEART EXAMINATION: Heart sounds regular, S1 and S2 with a systolic murmur at the base. CHEST EXAMINATION: Lungs reveal crackles to bilateral bases. No chest wall tenderness is noted on palpation or with deep breathing. ABDOMEN: Soft, nontender. Bowel sounds are heard. No organomegaly noted. EXTREMITIES: 2+ peripheral pulses with evidence of trace peripheral edema and no calf tenderness noted. NEUROLOGIC patient is awake, alert and oriented x3. . - Labs CBC & Chem 7: 09/16/18 06:17 09/16/18 06:17 Labs: Abnormal Lab Results - Last 24 Hours (Table) 09/16/18 09/16/18 Range/Units 06:17 06:17 WBC 11.7 H (3.8-10.6) k/uL Hgb 10.8 L (11.4-16.0) gm/dL RDW 16.8 H (11.5-15.5) % Neutrophils # 9.8 H (1.3-7.7) k/uL Chloride 93 L (98-107) mmol/L Carbon Dioxide 37 H (22-30) mmol/L BUN 22 H (7-17) mg/dL Glucose 132 H (74-99) mg/dL Assessment and Plan Assessment: #1 diastolic congestive heart failure acute on chronic #2 exacerbation of asthma, history also of bronchiolitis obliterans organizing pneumonia #3 Hodgkin's lymphoma history #4 hyperlipidemia #5 history of breast CA with prior mastectomy #6 nonischemic cardiomyopathy #7 hypothyroidism #8 aortic insufficiency, nonrheumatic Plan: From cardiology's perspective, we'll continue current dose of IV Lasix. Continue to monitor daily weights, electrolytes, renal function and monitor intake and outputs. We'll repeat a chest x-ray today. Further recommendations to follow. IRONER OR PRESSER note has been reviewed, I agree with a documented findings and plan of care. Patient was seen and examined.
--- NOTE | 2018-09-16 12:57 | P.PN ---
Subjective Progress Note Date: 09/16/18 this is a 63-year-old female with a known past medical history of hyperlipidemia , nonischemic cardiomyopathy, hypothyroidism, breast cancer with prior mastectomy, aortic valve insufficiency, hypotension we'll follow along as patient has undergone chemotherapy and radiation treatment, obstructive sleep apnea, BOOP( bronchiolitis obliterans organizing pneumonia), thoracic spinal fracture and wears back brace and history of asthma. Patient presents to the emergency room with complaints of worsening shortness of breath over the last 2 weeks. She reports some left-sided rib pain. She does have a cough. She's also noted increase in her lower extremity edema. She has difficulty laying flat. Also increase shortness of breath with activity. Chest x-ray on admission showed cardiomegaly and chronic parenchymal change with persistent small left pleural effusion and associated left basal atelectasis. Mild diffuse interstitial edema felt to be present bilaterally. Correlate for fluid overload and congestive heart failure exacerbation on top for chronic disease. Pulmonary and cardiology consulted. Patient did have elevated BNP level. She started on IV Lasix. Echo from May showed an EF of 50-55%. Patient denies any fever, chills, sweats. Denies any nausea or vomiting. Denies any bowel movement changes or urinary symptoms. 09/15/2018 patient shortness of breath is showing some improvement. Still having some short of breath with activity. She is requiring 3 L of oxygen. She usually wears oxygen as needed home. Weight has decreased from 88.5 kg to 86.3 kg. Patient denies any chest pain. Denies any nausea or vomiting. No bowel movement today. Denies any burning with urination On 09/16/2018 patient is alert and oriented 3 in no apparent distress she was seen and examined on the 3rd telemetry floor, her shortness of breath is improving she denies any chest pain, no cough no fever or chills no headache or dizziness there is no nausea or vomiting no abdominal pain no diarrhea, and no urinary symptoms Objective - Vital Signs Vital signs: Vital Signs Temp 98.7 F 09/16/18 08:00 Pulse 80 09/16/18 12:41 Resp 16 09/16/18 11:30 BP 100/55 09/16/18 11:06 Pulse Ox 98 09/16/18 11:06 Intake & Output 09/15/18 09/16/18 09/16/18 18:59 06:59 18:59 Intake Total 600 Output Total 1500 1800 Balance -900 -1800 Weight 86 kg Intake: Oral 600 Output: Urine 1500 1800 Other: Voiding Method Bedside Commode Bedside Commode Bedside Commode # Voids 0 1 # Bowel Movements 0 - Exam Head normocephalic and atraumatic Neck supple no JVD no goiter Lungs mild wheezes noted bilaterally Heart regular rate and rhythm S1-S2, no rub or gallop Abdomen is soft nontender nondistended positive bowel sounds no hepatosplenomegaly Extremities trace edema bilateral lower extremities Neuro alert and orientated to 3 - Labs CBC & Chem 7: 09/16/18 06:17 09/16/18 06:17 Labs: Abnormal Lab Results - Last 24 Hours (Table) 09/16/18 09/16/18 Range/Units 06:17 06:17 WBC 11.7 H (3.8-10.6) k/uL Hgb 10.8 L (11.4-16.0) gm/dL RDW 16.8 H (11.5-15.5) % Neutrophils # 9.8 H (1.3-7.7) k/uL Chloride 93 L (98-107) mmol/L Carbon Dioxide 37 H (22-30) mmol/L BUN 22 H (7-17) mg/dL Glucose 132 H (74-99) mg/dL Assessment and Plan Plan: 1. Acute on chronic diastolic congestive heart failure exacerbation: Patient did have CHF findings on chest x-ray and elevated BNP. Started on IV Lasix 40 mg every 12 hours. Echo completed in May that showed an EF of 50-55%. Cardiology following. 2. history of bronchiolitis obliterans organizing pneumonia. Pulmonary following. They have decreased her prednisone 50 mg daily down to 10 mg daily 3. History of Hodgkin lymphoma status post chemo and radiation treatment in 1978 4. History of breast cancer status post mastectomy 5. History of renal cancer status post partial nephrectomy 6. History of essential hypertension 7. Hyperlipidemia 8. T8 compression fracture continue using back brace 9. Leukocytosis likely related to steroids patient is chronically on prednisone for her bronchiolitis obliterans organizing pneumonia 10. Hypothyroidism continue Synthroid 11. Chronic persistent asthma continue her DuoNeb updraft treatments GI prophylaxis Pepcid and DVT prophylaxis subcu heparin Consult physical therapy
--- NOTE | 2018-09-16 13:12 | P.PN ---
Subjective Progress Note Date: 09/16/18 Principal diagnosis: Heart failure/BOOP Progress note dated 09/16/2018 63-year-old female with a history of multiple medical problems. She presented with shortness of breath RELATED to chronic congestive heart failure with preserved left ventricular systolic function. She also has a history of bronchiolitis obliterans organizing pneumonia, biopsy proven, on a tapering dose of steroids, Hodgkin's lymphoma status post radiation, hypertension, hyperlipidemia, breast cancer, status post mastectomy with reconstruction, hypothyroidism, healthcare acquired pneumonia, sleep apnea syndrome, on CPAP, nephrectomy for hypernephroma and a history of anxiety and depression. The patient is showing steady improvement. We did lower her prednisone dose from 15 -10 mg a day. Her breathing has improved and her lower extremity edema has improved and her weight has gone down. She continues on IV diuretics steroid Symbicort bronchodilators, etc. I did ask her to try to get out of bed sitting at the bedside and use her incentive spirometer. She is not coughing producing any phlegm. There is no fever or chills. Objective - Vital Signs Vital signs: Vital Signs Temp 98.7 F 09/16/18 08:00 Pulse 80 09/16/18 12:41 Resp 16 09/16/18 11:30 BP 100/55 09/16/18 11:06 Pulse Ox 98 09/16/18 11:06 Intake & Output 09/15/18 09/16/18 09/16/18 18:59 06:59 18:59 Intake Total 600 Output Total 1500 1800 Balance -900 -1800 Weight 86 kg Intake: Oral 600 Output: Urine 1500 1800 Other: Voiding Method Bedside Commode Bedside Commode Bedside Commode # Voids 0 1 # Bowel Movements 0 - Exam No acute distress, oriented 3. No elsie respiratory distress. The patient does have a askew face from chronic steroid use. HEENT examination is grossly unremarkable. Mucous membranes are moist. No oral lesions. Neck supple. Full range of motion. No adenopathy thyromegaly or neck vein distention. Cardiovascular examination reveals regular rhythm rate. S1-S2 normal. No S3 or S4. No discernible murmur noted. Lungs reveal mild crackles throughout. They're mostly noted in the bases of the lungs. They are consistent with the patient's known history of heart failure. No wheezes. No rhonchi. Breath sounds are equal bilaterally but diminished throughout. Abdomen soft bowel sounds are heard. No masses or tenderness. Extremities reveal 1+ pitting edema. No cyanosis or clubbing. Skin is without rash or lesion. Neurologic examination is brief but nonfocal. - Labs CBC & Chem 7: 09/16/18 06:17 09/16/18 06:17 Labs: Abnormal Lab Results - Last 24 Hours (Table) 09/16/18 09/16/18 Range/Units 06:17 06:17 WBC 11.7 H (3.8-10.6) k/uL Hgb 10.8 L (11.4-16.0) gm/dL RDW 16.8 H (11.5-15.5) % Neutrophils # 9.8 H (1.3-7.7) k/uL Chloride 93 L (98-107) mmol/L Carbon Dioxide 37 H (22-30) mmol/L BUN 22 H (7-17) mg/dL Glucose 132 H (74-99) mg/dL Assessment and Plan Assessment: Assessment Shortness of breath, secondary to acute exacerbation of chronic congestive heart failure with preserved left ventricular ejection fraction (HFPEF) History of biopsy-proven bronchiolitis obliterans organizing pneumonia (BOOP), on a tapering dose of corticosteroids History of Hodgkin's lymphoma, S/P radiation History of hypertension History of hyperlipidemia History of breast cancer, with prior mastectomy and reconstruction History of hypothyroidism Healthcare acquired pneumonia, by history History of sleep apnea syndrome, on CPAP Status post nephrectomy on the right for hypernephroma History of anxiety/depression Plan: Plan dated 09/16/2018 The patient continues to show steady improvement. Her weight has gone down. Her breathing has improved. Her lower extremity edema has improved. She has less orthopnea. We did lower her prednisone dose to help with her fluid loss. White count is 11.7, hemoglobin 10.8, hematocrit 34.8 and platelet count of 369, 000. Sodium and potassium are normal. Chloride 93, CO2 37, BUN 22 and creatinine 0.87. Medications are reviewed. We will continue to follow her progress. No additional recommendations are made. Time with Patient: Less than 30
--- NOTE | 2018-09-16 13:41 | XR ---
EXAMINATION TYPE: XR chest 2V DATE OF EXAM: 09/16/2018 HISTORY: CHF/ILD. REFERENCE: Previous study dated 09/13/2018. FINDINGS: The heart is enlarged. There are calcified hilar lymph nodes as well as right paratracheal lymph nodes. Aeration at the left lung base has improved. There is mild vascular congestion with some interstitial change. This has improved from previous. There is prominence of the right hilum which i s somewhat ill-defined. IMPRESSION: 1. CARDIOMEGALY. 2. EVIDENCE OF OLD GRANULOMATOUS DISEASE. 3. IMPROVED AERATION LEFT LUNG BASE. 4. I COULD NOT EXCLUDE SOME DEGREE OF PULMONARY ARTERY HYPERTENSION.
[2018-09-16] MEDS: SERTRALINE 100 MG TAB PO SCH (17:11)
[2018-09-16] MEDS: FERROUS SULFATE 325 MG TAB PO SCH (17:11)
[2018-09-16] MEDS: MONTELUKAST 10 MG TAB PO SCH (21:21)
[2018-09-16] MEDS: ATORVASTATIN 20 MG TAB PO SCH (21:22)
[2018-09-16] MEDS: SPIRONOLACTONE 25 MG TAB PO SCH (21:22)
[2018-09-17] MEDS: FUROSEMIDE 10 MG/ML 4 ML VIAL IV SCH ×2 (05:52→16:34)
[2018-09-17] MEDS: PANTOPRAZOLE 40 MG TABLET PO SCH ×2 (05:53→16:34)
[2018-09-17] MEDS: LEVOTHYROXINE 100 MCG TAB PO SCH (05:53)
[2018-09-17] MEDS: HYDROcodone/APAP 7.5-325MG 1 EACH TAB PO PRN ×2 (06:00→16:39)
[2018-09-17] MEDS: ALPRAZolam 0.5 MG TAB PO PRN ×2 (06:00→16:39)
[2018-09-17 07:46] LABS: Anisocytosis Slight; Basophils # (A) 0.1 k/uL (0-0.2); Basophils % (A) 1 %; Eosinophils # (A) 0.1 k/uL (0-0.7); Eosinophils % (A) 1 %; HCT 35.3 % (34.0-46.0); HGB 11.3 gm/dL (11.4-16.0); Hypochromasia Slight; Lymphocytes # (A) 1.8 k/uL (1.0-4.8); Lymphocytes % (A) 17 %; MCH 27.9 pg (25.0-35.0); MCHC 31.9 g/dL (31.0-37.0); MCV 87.4 fL (80.0-100.0); Monocytes # (A) 0.6 k/uL (0-1.0); Monocytes % (A) 5 %; Neutrophils # (A) 8.2 k/uL (1.3-7.7); Neutrophils % (A) 75 %; Platelet Count 341 k/uL (150-450); RBC 4.04 m/uL (3.80-5.40); RDW 16.7 % (11.5-15.5)
[2018-09-17 07:54] LABS: Albumin 3.8 g/dL (3.5-5.0); Calcium 9.8 mg/dL (8.4-10.2); Potassium 3.7 mmol/L (3.5-5.1); Total Bilirubin 0.5 mg/dL (0.2-1.3); Total Protein 6.7 g/dL (6.3-8.2)
[2018-09-17] MEDS: METOPROLOL SUCCINATE (ER) 25 MG TAB.ER.24H PO SCH (08:31)
[2018-09-17] MEDS: HEPARIN SODIUM,PORCINE 5,000 UNIT/ML 1 ML VIAL SQ SCH ×2 (08:31→22:55)
[2018-09-17] MEDS: ARIPiprazole 2 MG TAB PO SCH (08:31)
[2018-09-17] MEDS: predniSONE 10 MG TAB PO SCH (08:33)
[2018-09-17] MEDS: POTASSIUM CHLORIDE ER 10 MEQ TAB.ER.PRT PO SCH (08:33)
[2018-09-17] MEDS: SYMBICORT 160-4.5 MCG INHALER INHALATION SCH ×2 (08:47→21:11)
[2018-09-17] MEDS: IPRATROPIUM-ALBUTEROL 3 ML NEB INHALATION SCH ×4 (08:47→21:11)
--- NOTE | 2018-09-17 10:07 | P.PN ---
Subjective Progress Note Date: 09/17/18 this is a 63-year-old female with a known past medical history of hyperlipidemia , nonischemic cardiomyopathy, hypothyroidism, breast cancer with prior mastectomy, aortic valve insufficiency, hypotension we'll follow along as patient has undergone chemotherapy and radiation treatment, obstructive sleep apnea, BOOP( bronchiolitis obliterans organizing pneumonia), thoracic spinal fracture and wears back brace and history of asthma. Patient presents to the emergency room with complaints of worsening shortness of breath over the last 2 weeks. She reports some left-sided rib pain. She does have a cough. She's also noted increase in her lower extremity edema. She has difficulty laying flat. Also increase shortness of breath with activity. Chest x-ray on admission showed cardiomegaly and chronic parenchymal change with persistent small left pleural effusion and associated left basal atelectasis. Mild diffuse interstitial edema felt to be present bilaterally. Correlate for fluid overload and congestive heart failure exacerbation on top for chronic disease. Pulmonary and cardiology consulted. Patient did have elevated BNP level. She started on IV Lasix. Echo from May showed an EF of 50-55%. Patient denies any fever, chills, sweats. Denies any nausea or vomiting. Denies any bowel movement changes or urinary symptoms. 09/15/2018 patient shortness of breath is showing some improvement. Still having some short of breath with activity. She is requiring 3 L of oxygen. She usually wears oxygen as needed home. Weight has decreased from 88.5 kg to 86.3 kg. Patient denies any chest pain. Denies any nausea or vomiting. No bowel movement today. Denies any burning with urination On 09/16/2018 patient is alert and oriented 3 in no apparent distress she was seen and examined on the 3rd telemetry floor, her shortness of breath is improving she denies any chest pain, no cough no fever or chills no headache or dizziness there is no nausea or vomiting no abdominal pain no diarrhea, and no urinary symptoms On 09/17/2018 patient was seen and examined on the telemetry floor she is alert and oriented x3 shortness of breath is improving she has occasional cough she is complaining of constipation otherwise she denies any complaints there is no fever or chills no headache no dizziness no chest pain no nausea or vomiting no abdominal pain no diarrhea and no urinary symptoms Objective - Vital Signs Vital signs: Vital Signs Temp 97.8 F 09/17/18 07:45 Pulse 86 09/17/18 09:03 Resp 16 09/17/18 07:45 BP 99/57 09/17/18 07:45 Pulse Ox 96 09/17/18 08:51 Intake & Output 09/16/18 09/17/18 09/17/18 18:59 06:59 18:59 Intake Total 180 Output Total 1999 Balance -1999 180 Weight 86 kg Intake: Oral 180 Output: Urine 1999 Other: Voiding Method Bedside Commode Bedside Commode Bedside Commode # Voids 1 1 - Exam Head normocephalic and atraumatic Neck supple no JVD no goiter Lungs mild wheezes noted bilaterally Heart regular rate and rhythm S1-S2, no rub or gallop Abdomen is soft no tenderness no organomegaly Extremities trace edema bilateral lower extremities Neuro alert and orientated to 3 - Labs CBC & Chem 7: 09/17/18 07:02 09/17/18 07:02 Labs: Abnormal Lab Results - Last 24 Hours (Table) 09/17/18 09/17/18 Range/Units 07:02 07:02 WBC 11.0 H (3.8-10.6) k/uL Hgb 11.3 L (11.4-16.0) gm/dL RDW 16.7 H (11.5-15.5) % Neutrophils # 8.2 H (1.3-7.7) k/uL Chloride 93 L (98-107) mmol/L Carbon Dioxide 38 H (22-30) mmol/L BUN 26 H (7-17) mg/dL Glucose 103 H (74-99) mg/dL Assessment and Plan Plan: 1. Acute on chronic diastolic congestive heart failure exacerbation: Patient did have CHF findings on chest x-ray and elevated BNP. Started on IV Lasix 40 mg every 12 hours. Echo completed in May that showed an EF of 50-55%. Cardiology following. 2. history of bronchiolitis obliterans organizing pneumonia. Pulmonary following. They have decreased her prednisone 50 mg daily down to 10 mg daily 3. History of Hodgkin lymphoma status post chemo and radiation treatment in 1978 4. History of breast cancer status post mastectomy 5. History of renal cancer status post partial nephrectomy 6. History of essential hypertension 7. Hyperlipidemia 8. T8 compression fracture continue using back brace 9. Leukocytosis likely related to steroids patient is chronically on prednisone for her bronchiolitis obliterans organizing pneumonia 10. Hypothyroidism continue Synthroid 11. Chronic persistent asthma continue her DuoNeb updraft treatments GI prophylaxis Pepcid and DVT prophylaxis subcu heparin Consult physical therapy
--- NOTE | 2018-09-17 11:42 | P.PN ---
Subjective Progress Note Date: 09/17/18 Principal diagnosis: CHF secondary to diastolic dysfunction This is a 63-year-old female who follows with Dr. Jasso in the office. She has a known history of hyperlipidemia, nonischemic cardio myopathy , hyperlipidemia, hypothyroidism, history of breast cancer with prior mastectomy , aortic valve insufficiency, nonrheumatic, Hodgkin's lymphoma for which the patient has undergone chemotherapyand radiation,obstructive sleep apnea,BOOP( bronchiolitis obliterans organizing pneumonia) and asthma.she presents to the hospital on this occasion with symptoms of progressively worsening shortness of breath, PND and orthopnea, peripheral edema.chest x-ray on admission showed cardiomegaly and chronic parenchymal changes with persistent small left pleural effusion and associated left basilar atelectasis. Mild diffuse interstitial edema is felt to be present bilaterally. Correlate for fluid overload and congestive heart failure exacerbation on top of her chronic disease.EKG shows normal sinus rhythm with a left bundle-branch block pattern. BNP level 1280. Most recent echocardiogram with Doppler study was performed in May of this year which revealed an ejection fraction of 50-55%. On follow-up with the patient today, she stated that she is feeling slightly better indeterminable shortness of breath. She still have bilateral lower extremities edema. She continues to be on Lasix IV. The kidney function continues to be stable. The weight has came down 3 kg. I would recommend continue the patient on Lasix IV for additional 24 hours, continue monitor the kidney function and electrolytes, and follow-up with the patient. Objective - Vital Signs Vital signs: Vital Signs Temp 97.8 F 09/17/18 07:45 Pulse 88 09/17/18 11:27 Resp 16 09/17/18 11:27 BP 106/59 09/17/18 11:14 Pulse Ox 98 09/17/18 11:14 Intake & Output 09/16/18 09/17/18 09/17/18 18:59 06:59 18:59 Intake Total 180 Output Total 1999 Balance -1999 180 Weight 86 kg Intake: Oral 180 Output: Urine 1999 Other: Voiding Method Bedside Commode Bedside Commode Bedside Commode # Voids 1 1 2 - Constitutional General appearance: Present: no acute distress - Respiratory Respiratory: bilateral: diminished - Cardiovascular Rhythm: regular Heart sounds: normal: S1, S2 Abnormal Heart Sounds: Present: systolic murmur - Labs CBC & Chem 7: 09/17/18 07:02 09/17/18 07:02 Labs: Abnormal Lab Results - Last 24 Hours (Table) 09/17/18 09/17/18 Range/Units 07:02 07:02 WBC 11.0 H (3.8-10.6) k/uL Hgb 11.3 L (11.4-16.0) gm/dL RDW 16.7 H (11.5-15.5) % Neutrophils # 8.2 H (1.3-7.7) k/uL Chloride 93 L (98-107) mmol/L Carbon Dioxide 38 H (22-30) mmol/L BUN 26 H (7-17) mg/dL Glucose 103 H (74-99) mg/dL Assessment and Plan Assessment: Assessment #1 diastolic congestive heart failure exacerbation #2 asthma/POOP #3 valvular heart disease #4 multiple comorbid conditions Plan #1 continue the Lasix IV for additional 24 hours #2 continue monitor the kidney function and electrolytes #3 follow-up with the patient
--- NOTE | 2018-09-17 12:10 | P.PN ---
Subjective Progress Note Date: 09/17/18 Principal diagnosis: Acute exacerbation of chronic congestive heart failure with preserved left ventricular systolic function This is 63-year-old white female patient of Dr. Naqvi, who presented emergency department on 09/13/2018 for evaluation of worsening shortness of breath, swelling in both leg, weight gain, although about 7 pounds over one week's period of time, cough, yellow phlegm production and pain over left side of her chest worsened with deep inspiration. She states her shortness of breath is worse with lying flat. Patient has an underlying history of Barnett proven bronchiolitis obliterans organizing pneumonia, history of left wrist cancer, status post mastectomy, and reconstructive surgery, Hodgkin's lymphoma status post radiation, GERD, hypertension, hyperlipidemia, obstructive sleep apnea on CPAP therapy, congestive heart failure with diastolic dysfunction, Yuri's thyroiditis, chronic bronchial asthma and depression. She follows with Dr. Valadez in the pulmonary office. Her maintenance medications include Symbicort, Singulair, albuterol, patient is on maintenance prednisone dose, currently at 15 mg daily. She was recently hospitalized with right upper lobe healthcare acquired pneumonia, she was treated with broad-spectrum antibiotics including Zosyn and Levaquin, cultures from that admission were all negative. Patient was sent to rehab after discharge, and she is only been home for the last 3 weeks. Yesterday she went to the pulmonary office for pulmonary function test, however in view of her increasing shortness of breath she was sent to the emergency department for further evaluation and treatment. Chest x-ray was completed, and showed cardiomegaly, chronic parenchymal changes with persistent small left pleural effusion, and associated left basilar atelectasis and/or infiltrate. New mild diffuse interstitial edema was noted bilaterally. Changes are consistent with fluid overload, and CHF exacerbation. Lab work showed WBC of 14.6, hemoglobin 10.5, platelets 517, sodium was 139, potassium is 4.7, BUN was 37 creatinine is 1.1, proBNP was elevated at 1280, and troponin was negative 1. Follow-up blood work shows WBC of 13, hemoglobin of 10.4, sodium is 140, potassium is 3.8, CO2 of 33, BUN is 21, creatinine 0.82. Patient was started on IV Lasix. She is diuresing, and she is feeling better today. We were asked to see the patient in consultation for shortness of breath. On 09/15/2018 patient seen in follow-up on selective care unit. He is diuresing , he is she is in -4120 ML net fluid balance over the last 24 hours, her weight is down 3 kg since admission. Still has the residual bilateral lower extremity swelling, but it is improving. Lung sounds are positive for bibasilar crackles , and some scattered wheezes. Yesterday we decreased the dose of maintenance prednisone 10 mg. Patient continues on IV diuretics, with Lasix 40 mg twice daily. Today's lab work has been reviewed, shows WBC trending down to 11.9, hemoglobin is 10.8, sodium is 140, potassium is 3.6, chloride is 93, CO2 is 29, BUN is 20, creatinine 0.74. LFTs are within normal limits. No new chest x- rays today. She continues on 3 L per nasal cannula, her pulse ox of 90%, no fever, no chills. On 09/17/2018 patient seen in follow-up on selective care unit. She is resting comfortably in bed, in no acute distress, lung sounds reveal right lower lobe crackles posteriorly, no wheezes, no rhonchi. Still have some residual swelling in her bilateral lower extremities. She is maintained on IV diuretics , Lasix 40 mg every 12 hours, and -2 L over the last 24 hours. Overall breathing better, feeling better. Stress chest x-ray has been reviewed, showed cardiomegaly, old granulomatous disease, improved aeration at the left lung base. Continue with current plan of treatment. Labs have been reviewed, WBCs 11.0, hemoglobin is 11.3, sodium is 139, potassium is 3.7, chloride is 93, CO2 is 38, B1 is 26, creatinine 0.88. Events overnight, no specific complaints. Since prednisone was decreased down to 10 mg daily. Objective - Vital Signs Vital signs: Vital Signs Temp 97.8 F 09/17/18 07:45 Pulse 88 09/17/18 11:27 Resp 16 09/17/18 11:27 BP 106/59 09/17/18 11:14 Pulse Ox 98 09/17/18 11:14 Intake & Output 09/16/18 09/17/18 09/17/18 18:59 06:59 18:59 Intake Total 180 Output Total 1999 Balance -1999 180 Weight 86 kg Intake: Oral 180 Output: Urine 2000 Other: Voiding Method Bedside Commode Bedside Commode Bedside Commode # Voids 1 1 2 - Exam GENERAL EXAM: Alert, pleasant 63-year-old white female, currently on 2 L per nasal cannula, comfortable in no apparent distress. HEAD: Normocephalic/atraumatic. EYES: Normal reaction of pupils, equal size. Conjunctiva pink, sclera white. NOSE: Clear with pink turbinates. THROAT: No erythema or exudates. NECK: No masses, no JVD, no thyroid enlargement, no adenopathy. CHEST: No chest wall deformity. Symmetrical expansion. LUNGS: Equal air entry with coarse crackles in bilateral bases, no wheezes noted on today's exam. CVS: Regular rate and rhythm, normal S1 and S2, no gallops, no murmurs, no rubs ABDOMEN: Soft, nontender. No hepatosplenomegaly, normal bowel sounds, no guarding or rigidity. EXTREMITIES: No clubbing, 1+ bilateral lower extremity edema, no cyanosis, 2+ pulses and upper and lower extremities. MUSCULOSKELETAL: Muscle strength and tone normal. SPINE: No scoliosis or deformity SKIN: No rashes CENTRAL NERVOUS SYSTEM: Alert and oriented -3. No focal deficits, tone is normal in all 4 extremities. PSYCHIATRIC: Alert and oriented -3. Appropriate affect. Intact judgment and insight. - Labs CBC & Chem 7: 09/17/18 07:02 09/17/18 07:02 Labs: Abnormal Lab Results - Last 24 Hours (Table) 09/17/18 09/17/18 Range/Units 07:02 07:02 WBC 11.0 H (3.8-10.6) k/uL Hgb 11.3 L (11.4-16.0) gm/dL RDW 16.7 H (11.5-15.5) % Neutrophils # 8.2 H (1.3-7.7) k/uL Chloride 93 L (98-107) mmol/L Carbon Dioxide 38 H (22-30) mmol/L BUN 26 H (7-17) mg/dL Glucose 103 H (74-99) mg/dL Assessment and Plan Plan: Assessment: #1. Acute exacerbation of chronic congestive heart failure with preserved left ventricular systolic function as previously noted #2. History of bronchiolitis obliterans organizing pneumonia #3. History of Hodgkin's lymphoma status post radiation #4. Hypertension, hyperlipidemia #5. 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 Hypothyroidism #7. Recent hospitalization for healthcare acquired pneumonia #8. Obstructive sleep apnea on CPAP therapy #9. History of renal cancer status post right nephrectomy #10. History of anxiety/depression Plan: Continue IV diuretics for another 24 hours, continue nebulized bronchodilators, current dose prednisone 10 mg daily. Patient is improving, with further improvement, may consider for discharge home in the next 24-48 hours. I performed a history & physical examination of the patient and discussed their management with my nurse practitioner, Esther Yusuf. I reviewed the nurse practitioner's note and agree with the documented findings and plan of care. Lung sounds are positive for bibasilar crackles. The findings and the impression was discussed with the patient. I attest to the documentation by the nurse practitioner. Time with Patient: Less than 30
[2018-09-17] MEDS: FERROUS SULFATE 325 MG TAB PO SCH (16:34)
[2018-09-17] MEDS: SERTRALINE 100 MG TAB PO SCH (16:34)
[2018-09-17] MEDS: SPIRONOLACTONE 25 MG TAB PO SCH (22:55)
[2018-09-17] MEDS: MONTELUKAST 10 MG TAB PO SCH (22:55)
[2018-09-17] MEDS: ATORVASTATIN 20 MG TAB PO SCH (22:55)
[2018-09-18] MEDS: PANTOPRAZOLE 40 MG TABLET PO SCH ×2 (05:21→18:04)
[2018-09-18] MEDS: LEVOTHYROXINE 100 MCG TAB PO SCH (05:21)
[2018-09-18] MEDS: ALPRAZolam 0.5 MG TAB PO PRN ×2 (05:21→18:06)
[2018-09-18] MEDS: FUROSEMIDE 10 MG/ML 4 ML VIAL IV SCH (05:21)
[2018-09-18 07:17] LABS: Anisocytosis Slight; Basophils # (A) 0.1 k/uL (0-0.2); Basophils % (A) 0 %; Eosinophils # (A) 0.2 k/uL (0-0.7); Eosinophils % (A) 1 %; HCT 38.8 % (34.0-46.0); HGB 12.3 gm/dL (11.4-16.0); Hypochromasia Slight; Lymphocytes # (A) 1.9 k/uL (1.0-4.8); Lymphocytes % (A) 10 %; MCH 27.9 pg (25.0-35.0); MCHC 31.8 g/dL (31.0-37.0); MCV 87.8 fL (80.0-100.0); Monocytes # (A) 0.7 k/uL (0-1.0); Monocytes % (A) 3 %; Neutrophils # (A) 17.1 k/uL (1.3-7.7); Neutrophils % (A) 85 %; Platelet Count 356 k/uL (150-450); RBC 4.42 m/uL (3.80-5.40); RDW 16.5 % (11.5-15.5); WBC 20.1 k/uL (3.8-10.6)
[2018-09-18 07:32] LABS: Albumin 4.1 g/dL (3.5-5.0); Potassium 3.8 mmol/L (3.5-5.1); Total Bilirubin 0.5 mg/dL (0.2-1.3)
[2018-09-18] MEDS: SYMBICORT 160-4.5 MCG INHALER INHALATION SCH ×2 (07:46→21:33)
[2018-09-18] MEDS: IPRATROPIUM-ALBUTEROL 3 ML NEB INHALATION SCH ×4 (07:46→21:33)
[2018-09-18] MEDS: HEPARIN SODIUM,PORCINE 5,000 UNIT/ML 1 ML VIAL SQ SCH ×2 (08:12→20:36)
[2018-09-18] MEDS: HYDROcodone/APAP 7.5-325MG 1 EACH TAB PO PRN ×2 (08:13→18:07)
[2018-09-18] MEDS: ARIPiprazole 2 MG TAB PO SCH (08:13)
[2018-09-18] MEDS ORDERED: ONDANSETRON 4 MG/2 ML VIAL IVP PRN (10:19)
--- NOTE | 2018-09-18 10:25 | P.PN ---
Subjective Progress Note Date: 09/18/18 this is a 63-year-old female with a known past medical history of hyperlipidemia , nonischemic cardiomyopathy, hypothyroidism, breast cancer with prior mastectomy, aortic valve insufficiency, hypotension we'll follow along as patient has undergone chemotherapy and radiation treatment, obstructive sleep apnea, BOOP( bronchiolitis obliterans organizing pneumonia), thoracic spinal fracture and wears back brace and history of asthma. Patient presents to the emergency room with complaints of worsening shortness of breath over the last 2 weeks. She reports some left-sided rib pain. She does have a cough. She's also noted increase in her lower extremity edema. She has difficulty laying flat. Also increase shortness of breath with activity. Chest x-ray on admission showed cardiomegaly and chronic parenchymal change with persistent small left pleural effusion and associated left basal atelectasis. Mild diffuse interstitial edema felt to be present bilaterally. Correlate for fluid overload and congestive heart failure exacerbation on top for chronic disease. Pulmonary and cardiology consulted. Patient did have elevated BNP level. She started on IV Lasix. Echo from May showed an EF of 50-55%. Patient denies any fever, chills, sweats. Denies any nausea or vomiting. Denies any bowel movement changes or urinary symptoms. 09/15/2018 patient shortness of breath is showing some improvement. Still having some short of breath with activity. She is requiring 3 L of oxygen. She usually wears oxygen as needed home. Weight has decreased from 88.5 kg to 86.3 kg. Patient denies any chest pain. Denies any nausea or vomiting. No bowel movement today. Denies any burning with urination On 09/16/2018 patient is alert and oriented 3 in no apparent distress she was seen and examined on the 3rd telemetry floor, her shortness of breath is improving she denies any chest pain, no cough no fever or chills no headache or dizziness there is no nausea or vomiting no abdominal pain no diarrhea, and no urinary symptoms On 09/17/2018 patient was seen and examined on the telemetry floor she is alert and oriented x3 shortness of breath is improving she has occasional cough she is complaining of constipation otherwise she denies any complaints there is no fever or chills no headache no dizziness no chest pain no nausea or vomiting no abdominal pain no diarrhea and no urinary symptoms 09/18/2018 patient reports that she is not feeling well today. She had some nausea earlier this morning. Now complaining of a sinus headache which she takes Zyrtec. She'll receive Claritin here. Still reporting some shortness of breath. She is only ambulating to the bedside commode. Weight has decreased from 86-85.3 kg. She had remained on the IV Lasix through the weekend. She denies any chest pain. Reports having formed stools. Denies any vomiting. Objective - Vital Signs Vital signs: Vital Signs Temp 99 F 09/18/18 08:00 Pulse 112 H 09/18/18 08:02 Resp 18 09/18/18 08:00 BP 106/56 09/18/18 08:00 Pulse Ox 96 09/18/18 08:00 Intake & Output 09/17/18 09/18/18 09/18/18 18:59 06:59 18:59 Intake Total 180 Output Total 2600 1300 Balance -2420 -1300 Weight 85.3 kg Intake: Oral 180 Output: Urine 2600 1300 Other: Voiding Method Bedside Commode Bedside Commode # Voids 2 2 # Bowel Movements 1 - Exam Head normocephalic Neck supple Lungs mild wheezes noted bilaterally Heart regular rate and rhythm S1-S2, no rub or gallop positive murmur Abdomen is soft nontender nondistended positive bowel sounds no hepatosplenomegaly Extremities no edema Neuro alert and orientated to 3 - Labs CBC & Chem 7: 09/18/18 06:44 09/18/18 06:44 Labs: Abnormal Lab Results - Last 24 Hours (Table) 09/18/18 09/18/18 Range/Units 06:44 06:44 WBC 20.1 H (3.8-10.6) k/uL RDW 16.5 H (11.5-15.5) % Neutrophils # 17.1 H (1.3-7.7) k/uL Chloride 92 L (98-107) mmol/L Carbon Dioxide 39 H (22-30) mmol/L BUN 29 H (7-17) mg/dL Assessment and Plan Assessment: 1. Acute on chronic diastolic congestive heart failure exacerbation: Patient did have CHF findings on chest x-ray and elevated BNP. on IV Lasix 40 mg every 12 hours. Echo completed in May that showed an EF of 50-55%. Cardiology following and will await their further recommendations regarding Lasix 2. history of bronchiolitis obliterans organizing pneumonia. Pulmonary following. They have decreased her prednisone 50 mg daily down to 10 mg daily 3. History of Hodgkin lymphoma status post chemo and radiation treatment in 1978 4. History of breast cancer status post mastectomy 5. History of renal cancer status post partial nephrectomy 6. History of essential hypertension 7. Hyperlipidemia 8. T8 compression fracture continue using back brace 9. Leukocytosis likely related to steroids patient is chronically on prednisone for her bronchiolitis obliterans organizing pneumonia. White count has come back up to 20. 10. Hypothyroidism continue Synthroid 11. Chronic persistent asthma continue her DuoNeb updraft treatments 12. Sinus headache: Change Claritin to daily Encouraged patient to increase activity. Take meals at bedside chair. Continue with physical therapy. GI prophylaxis Pepcid and DVT prophylaxis subcu heparin I performed an examination of the patient and discussed their management with the physician Campground Manager. I have reviewed the Physician Campground Manager's notes and agree with the documented findings and plan of care
[2018-09-18] MEDS: LORATADINE 10 MG TAB PO SCH (10:50)
[2018-09-18] MEDS: POTASSIUM CHLORIDE ER 10 MEQ TAB.ER.PRT PO SCH (11:59)
[2018-09-18] MEDS: predniSONE 10 MG TAB PO SCH (11:59)
[2018-09-18] MEDS: METOPROLOL SUCCINATE (ER) 25 MG TAB.ER.24H PO SCH (11:59)
--- NOTE | 2018-09-18 12:49 | P.PN ---
Subjective Progress Note Date: 09/18/18 Principal diagnosis: CHF This is a 63-year-old female who follows with Dr. Jasso in the office. She has a known history of hyperlipidemia, nonischemic cardio myopathy , hyperlipidemia, hypothyroidism, history of breast cancer with prior mastectomy , aortic valve insufficiency, nonrheumatic, Hodgkin's lymphoma for which the patient has undergone chemotherapyand radiation,obstructive sleep apnea,BOOP( bronchiolitis obliterans organizing pneumonia) and asthma.she presents to the hospital on this occasion with symptoms of progressively worsening shortness of breath, PND and orthopnea, peripheral edema.chest x-ray on admission showed cardiomegaly and chronic parenchymal changes with persistent small left pleural effusion and associated left basilar atelectasis. Mild diffuse interstitial edema is felt to be present bilaterally. Correlate for fluid overload and congestive heart failure exacerbation on top of her chronic disease.EKG shows normal sinus rhythm with a left bundle-branch block pattern.laboratory data, white blood cell count 13.0, hemoglobin 10.4, platelet count 392. Sodium 140, potassium 3.8, BUN 21, creatinine 0.8.troponin 0.012 and BNP level 1280.most recent echocardiogram with Doppler study was performed in May of this year which revealed an ejection fraction of 50-55%. At the time of my examination, Patient states she is still quite short of breath, does not feel any better than when she presented here in spite of the fact that the patient has been given IV Lasix.she did put out good urine through the night last night her weight is down 1 kg today. 09/15/2018 Patient was seen and examined this morning, diuresed well over the night last night. Her weight is down 2 kg today. Creatinine 0.4. Blood pressure 97/ 50.heart rate low 100s. 98% on 2 L of oxygen.White blood cell count 11.9, hemoglobin 10.8, platelet count 344. Sodium 140, potassium 3.6, BUN 20, creatinine 0.7.continues to be on IV Lasix 40 mg every 12 hours. We will continue this for another 24 hours. Repeat chest x-ray in the morning. 09/18/2018 Patient seen and examined this morning, her breathing is stable. She states she feels mildly lethargic today. She did get seen and axis morning as well as oxycodone. Blood pressure 106/56 with a heart rate in the low 100s, 96% on 2 L of oxygen.White blood cell count 20.1, hemoglobin 12.3, platelet count 356. Sodium 140, potassium 3.8, BUN 29, creatinine 0.8. Objective - Vital Signs Vital signs: Vital Signs Temp 99 F 09/18/18 08:00 Pulse 100 09/18/18 11:40 Resp 18 09/18/18 08:00 BP 106/56 09/18/18 08:00 Pulse Ox 96 09/18/18 08:00 Intake & Output 09/17/18 09/18/18 09/18/18 18:59 06:59 18:59 Intake Total 180 240 Output Total 2600 1300 Balance -2420 -1300 240 Weight 85.3 kg Intake: Oral 180 240 Output: Urine 2600 1300 Other: Voiding Method Bedside Commode Bedside Commode # Voids 2 2 # Bowel Movements 1 - Exam PHYSICAL EXAMINATION: GENERAL:63-year-old female in no acute distress at the time of my examination HEENT: Head is atraumatic, normocephalic. Pupils equal, round. Sclera anicteric. Conjunctiva are clear. Mucous membranes of the mouth are moist. Neck is supple. There is elevated jugular venous pressure.No carotid bruit is heard. HEART EXAMINATION:heart S1-S2 systolic murmur is heard at the base. CHEST EXAMINATION:Lungs reveal improvement in air exchange bilaterally. ABDOMEN: Soft, nontender. Bowel sounds are heard. No organomegaly noted. EXTREMITIES: 2+ peripheral pulses with trace evidence of peripheral edema . NEUROLOGIC patient is awake, mildly lethargic, oriented X3.] - Labs CBC & Chem 7: 09/18/18 06:44 09/18/18 06:44 Labs: Abnormal Lab Results - Last 24 Hours (Table) 09/18/18 09/18/18 Range/Units 06:44 06:44 WBC 20.1 H (3.8-10.6) k/uL RDW 16.5 H (11.5-15.5) % Neutrophils # 17.1 H (1.3-7.7) k/uL Chloride 92 L (98-107) mmol/L Carbon Dioxide 39 H (22-30) mmol/L BUN 29 H (7-17) mg/dL Assessment and Plan Plan: assessment and plan #1 diastolic congestive heart failure acute on chronic #2 exacerbation of asthma, history also of bronchiolitis obliterans organizing pneumonia #3 Hodgkin's lymphoma history #4 hyperlipidemia #5 history of breast CA with prior mastectomy #6 nonischemic cardiomyopathy #7 hypothyroidism #8 aortic insufficiency, nonrheumatic Plan We will discontinue the IV Lasix, change Lasix to 40 mg by mouth twice a day. Patient may be able to be discharged home from our perspective today, we'll make her a follow-up appointment in the office post discharge with Dr. Jasso.. DNP note has been reviewed, I agree with a documented findings and plan of care. Patient was seen and examined.
[2018-09-18] MEDS: FUROSEMIDE 40 MG TAB PO SCH (15:27)
--- NOTE | 2018-09-18 16:16 | P.CONS ---
History of Present Illness - Chief Complaint Medical debility - History of Present Illness I had the opportunity to see patient for inpatient rehab consultation with regard to medical debility. She was admitted to [facility] September 13 with shortness of breath and CHF exacerbation. Known breast cancer, nonischemic cardiomyopathy. Seen by cardiology and Dr. Valadez. Chest x-ray notes cardiomegaly, granulomatous disease and consistent with pulmonary venous hypertension. PT reports supervision for mobility and gait 200 feet without device. OT reports modified independent with upper dressing and minimal assistance for lower dressing and bathing. Supervision for toileting and transfers. Previous functional history as elicited from patient: 63-year-old right-handed white female who is and lives in one floor home alone. Retired. Describes friends do the cooking. She has a daughter and sister who help with laundry and driving. 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 Patient dependent with dressing and gait without device although she does have a walker and a cane. Dr. bonilla jar his regular doctor. History of smoking or remote past. Doesn't drink. Family history of [place] in father. Review of Systems Review of systems: ENT: Denies sneezes or discharge. Eyes: Denies discharge or photophobia. Cardiac: Denies chest pain or palpitation. Pulmonary: At least mild shortness of breath. Breast: Denies discharge or lumps. Gastrointestinal: Denies nausea, emesis, constipation, diarrhea. Genitourinary: Denies discharge or frequency. Musculoskeletal: Denies muscle or bone aches. Neurologic: Denies motor or sensory change. Endocrine: Denies shakes or sweats. Oncology: Denies cancers. Dermatologic: Denies rash, itching, pruritus. ALLERGY/immunology: Denies sneezes, rashes. Past Medical History Past Medical History: Asthma, Cancer, Heart Failure, GERD/Reflux, Hyperlipidemia , Hypertension, Sleep Apnea/CPAP/BIPAP, Thyroid Disorder Additional Past Medical History / Comment(s): BOOP. CHF, echo showed EF 50-55%, anemia, multiple thoracic compression fractures with T8 being worsewears brace, past herpes simplex type I L buttock which was tx . Other hx:1978 Hodgkins Lymphoma status post chemo and radiation chest area in 1978; L Breast CA-status post mastectomy(sx only), R renal carcinoma with partial nephrectomy, BOOP, home 02 prn, ASHKAN with CPAP use, hypothyroid, chronic back pain, recently given a back brace, osteoporosis. History of Any Multi-Drug Resistant Organisms: None Reported Past Surgical History: Adenoidectomy, Breast Surgery, Section, Hysterectomy, Orthopedic Surgery, Tonsillectomy Additional Past Surgical History / Comment(s): Spleenectomy, laparotomy, colonoscopy, EGD, bilateral 5th toe surgery for spurs, L breast mastectomy with breast reconstruction, bronchoscopy/lung bx, rt kidney partial nephrectomy, bilateral cataract removals with lens implants. Past Anesthesia/Blood Transfusion Reactions: No Reported Reaction Additional Past Anesthesia/Blood Transfusion Reaction / Comm: clausterphobia ( mri's) Smoking Status: Former smoker - Past Family History Mother Family Medical History: Osteoarthritis (OA) Additional Family Medical History / Comment(s): glaucoma Brother(s) Additional Family Medical History / Comment(s): MS Father Family Medical History: Liver Disease, Myocardial Infarction ([place]) Additional Family Medical History / Comment(s): age 70 -mi, alcoholic Medications and Allergies Home Medications Medication Instructions Recorded Confirmed Type Budesonide-Formot 160-4.5 Mcg 2 puff INHALATION RT-BID 10/05/16 09/13/18 History [Symbicort 160-4.5 Mcg Inhaler] Levothyroxine Sodium [Synthroid] 100 mcg PO DAILY 10/05/16 09/13/18 History Metoprolol Succinate (ER) [Toprol 25 mg PO DAILY@1200 10/05/16 09/13/18 History XL] Montelukast [Singulair] 10 mg PO HS 10/05/16 09/13/18 History Sertraline [Zoloft] 200 mg PO AC-SUPPER 10/05/16 09/13/18 History Simvastatin [Zocor] 40 mg PO HS 10/05/16 09/13/18 History ARIPiprazole [Abilify] 2 mg PO DAILY 04/06/17 09/13/18 History Albuterol Sulfate [Proair Hfa] 2 puff INHALATION RT-Q6H PRN 04/06/17 09/13/18 History Acyclovir 400 mg PO DAILY PRN 05/13/17 09/13/18 History Acyclovir [Zovirax] 1 applic TOPICAL 5XD PRN 05/13/17 09/13/18 History Cetirizine HCl [Zyrtec] 10 mg PO HS PRN 05/13/17 09/13/18 History Ranitidine HCl [Zantac] 150 mg PO HS PRN 05/13/17 09/13/18 History ALPRAZolam [Xanax] 0.5 mg PO Q8H PRN 06/19/18 09/13/18 History Ergocalciferol [Vitamin D2 50,000 unit PO SA 06/19/18 09/13/18 History (DRISDOL)] Omeprazole 40 mg PO BID 06/19/18 09/13/18 History HYDROcodone/APAP 7.5-325MG [[place] 1 tab PO Q6H PRN 07/03/18 09/13/18 History 7.5-325] Ipratropium-Albuterol Nebulize 3 ml INHALATION RT-QID ampul.neb 07/09/18 Rx [Duoneb 0.5 mg-3 mg/3 ml Soln] Ferrous Sulfate [Iron (65 MG 325 mg PO W/SUPPER 09/13/18 09/13/18 History Elemental)] Furosemide [Lasix] 40 mg PO DAILY@1200 09/13/18 09/13/18 History Potassium Chloride [K-Tab ER] 10 meq PO DAILY@1200 09/13/18 09/13/18 History Spironolactone [Aldactone] 25 mg PO HS 09/13/18 09/13/18 History predniSONE 15 mg PO DAILY@1200 09/13/18 09/13/18 History Allergies Allergy/AdvReac Type Severity Reaction Status Date / Time No Known Allergies Allergy Verified 09/13/18 13:54 Physical Exam Vitals: Vital Signs Temp Pulse Pulse Resp BP Pulse Ox 09/18/18 15:25 98.1 F 94 18 108/62 95 09/18/18 12:15 96.8 F L 103 H 18 103/53 95 09/18/18 11:40 100 09/18/18 11:28 106 H 09/18/18 08:02 112 H 09/18/18 08:00 99 F 112 H 18 106/56 96 09/18/18 07:51 110 H 98 09/18/18 04:00 98.2 F 114 H 18 150/64 98 09/18/18 00:00 96.8 F L 90 18 96/54 97 09/17/18 21:31 90 09/17/18 21:13 90 09/17/18 20:00 96.8 F L 87 18 107/53 96 09/17/18 17:02 92 09/17/18 16:48 92 Intake and Output 09/18/18 09/18/18 09/18/18 06:59 14:59 22:59 Intake Total 240 Output Total 1300 1400 Balance -1300 -1160 Intake: Oral 240 Output: Urine 1300 1400 Other: Voiding Method Bedside Commode # Voids 2 2 # Bowel Movements 1 0 Weight 85.3 kg Skin: Good color, texture, turgor. General: Medium build and comfortable appearance. Head: Normocephalic, atraumatic. Eyes: Symmetric. Pupils equal round. Ears: Symmetric. Hearing within normal limits. Mouth: Clear. Neck: Supple. Carotid without bruit. Cardiac: Regular rate and rhythm. Lungs: Clear anteriorly and posteriorly. Abdomen: Soft active nontender. Extremities: Normal tone. Neurological: Mental status: Alert, cooperative, pleasant. Cranial nerves: Symmetric facial tone and trapezius. Motor: Normal strength and isolation all 4 limbs. Sensation: Intact throughout. DTRs: Symmetric and equal throughout. Mobility: Sits without assistance. Results CBC & Chem 7: 09/18/18 06:44 09/18/18 06:44 Labs: Abnormal Lab Results - Last 24 Hours (Table) 09/18/18 09/18/18 Range/Units 06:44 06:44 WBC 20.1 H (3.8-10.6) k/uL RDW 16.5 H (11.5-15.5) % Neutrophils # 17.1 H (1.3-7.7) k/uL Chloride 92 L (98-107) mmol/L Carbon Dioxide 39 H (22-30) mmol/L BUN 29 H (7-17) mg/dL Assessment and Plan (1) BOOP (bronchiolitis obliterans with organizing pneumonia) Current Visit: No Status: Acute Code(s): J84.89 - OTHER SPECIFIED INTERSTITIAL PULMONARY DISEASES SNOMED Code(s): 884048638 Plan: Impression 1. Medical debility. 2. CHF. 3. Pulmonary cancer. 4. BOOP 5. Hypertension. 6. Dyslipidemia. 7. Asthma. 8. Sleep apnea. Comments and plan: At this time PT and OT are ongoing. Patient doing fairly well. Some endurance issues but generally doing well. Do not anticipate need for inpatient rehab at this time. Ending your clinical correlation, may consider home therapy versus short convalescent stay.
--- NOTE | 2018-09-18 16:44 | P.PN ---
Subjective Progress Note Date: 09/18/18 Principal diagnosis: Acute exacerbation of chronic congestive heart failure with preserved left ventricular systolic function This is 63-year-old white female patient of Dr. Naqvi, who presented emergency department on 09/13/2018 for evaluation of worsening shortness of breath, swelling in both leg, weight gain, although about 7 pounds over one week's period of time, cough, yellow phlegm production and pain over left side of her chest worsened with deep inspiration. She states her shortness of breath is worse with lying flat. Patient has an underlying history of Barnett proven bronchiolitis obliterans organizing pneumonia, history of left wrist cancer, status post mastectomy, and reconstructive surgery, Hodgkin's lymphoma status post radiation, GERD, hypertension, hyperlipidemia, obstructive sleep apnea on CPAP therapy, congestive heart failure with diastolic dysfunction, Yuri's thyroiditis, chronic bronchial asthma and depression. She follows with Dr. Valadez in the pulmonary office. Her maintenance medications include Symbicort, Singulair, albuterol, patient is on maintenance prednisone dose, currently at 15 mg daily. She was recently hospitalized with right upper lobe healthcare acquired pneumonia, she was treated with broad-spectrum antibiotics including Zosyn and Levaquin, cultures from that admission were all negative. Patient was sent to rehab after discharge, and she is only been home for the last 3 weeks. Yesterday she went to the pulmonary office for pulmonary function test, however in view of her increasing shortness of breath she was sent to the emergency department for further evaluation and treatment. Chest x-ray was completed, and showed cardiomegaly, chronic parenchymal changes with persistent small left pleural effusion, and associated left basilar atelectasis and/or infiltrate. New mild diffuse interstitial edema was noted bilaterally. Changes are consistent with fluid overload, and CHF exacerbation. Lab work showed WBC of 14.6, hemoglobin 10.5, platelets 517, sodium was 139, potassium is 4.7, BUN was 37 creatinine is 1.1, proBNP was elevated at 1280, and troponin was negative 1. Follow-up blood work shows WBC of 13, hemoglobin of 10.4, sodium is 140, potassium is 3.8, CO2 of 33, BUN is 21, creatinine 0.82. Patient was started on IV Lasix. She is diuresing, and she is feeling better today. We were asked to see the patient in consultation for shortness of breath. On 09/15/2018 patient seen in follow-up on selective care unit. He is diuresing , he is she is in -4120 ML net fluid balance over the last 24 hours, her weight is down 3 kg since admission. Still has the residual bilateral lower extremity swelling, but it is improving. Lung sounds are positive for bibasilar crackles , and some scattered wheezes. Yesterday we decreased the dose of maintenance prednisone 10 mg. Patient continues on IV diuretics, with Lasix 40 mg twice daily. Today's lab work has been reviewed, shows WBC trending down to 11.9, hemoglobin is 10.8, sodium is 140, potassium is 3.6, chloride is 93, CO2 is 29, BUN is 20, creatinine 0.74. LFTs are within normal limits. No new chest x- rays today. She continues on 3 L per nasal cannula, her pulse ox of 90%, no fever, no chills. On 09/17/2018 patient seen in follow-up on selective care unit. She is resting comfortably in bed, in no acute distress, lung sounds reveal right lower lobe crackles posteriorly, no wheezes, no rhonchi. Still have some residual swelling in her bilateral lower extremities. She is maintained on IV diuretics , Lasix 40 mg every 12 hours, and -2 L over the last 24 hours. Overall breathing better, feeling better. Stress chest x-ray has been reviewed, showed cardiomegaly, old granulomatous disease, improved aeration at the left lung base. Continue with current plan of treatment. Labs have been reviewed, WBCs 11.0, hemoglobin is 11.3, sodium is 139, potassium is 3.7, chloride is 93, CO2 is 38, B1 is 26, creatinine 0.88. Events overnight, no specific complaints. Since prednisone was decreased down to 10 mg daily. On 09/18/2018 patient seen in follow-up on selective care unit. She is in no acute distress, she is ambulating with physical therapy, she is complaining of being sleepy today. She tolerated ambulation quite well. Lung sounds reveal bibasilar crackles. She is currently on 2 L per nasal cannula and her pulse ox is 95%, she is afebrile, hemodynamically stable, she is diuresing, is in -3720 ML fluid balance over the last 24 hours. She is down 0.7 kg her last 24 hours. Lab work has been reviewed, WBC is 20.1, hemoglobin is 12.3, sodium is 140, potassium is 3.8, chloride is 92, CO2 39, BUN is 29, creatinine 0.83. Objective - Vital Signs Vital signs: Vital Signs Temp 98.1 F 09/18/18 15:25 Pulse 94 09/18/18 15:25 Resp 18 09/18/18 15:25 BP 108/62 09/18/18 15:25 Pulse Ox 95 09/18/18 15:25 Intake & Output 09/17/18 09/18/18 09/18/18 18:59 06:59 18:59 Intake Total 180 240 Output Total 2600 1300 1400 Balance -2420 -1300 -1160 Weight 85.3 kg Intake: Oral 180 240 Output: Urine 2600 1300 1400 Other: Voiding Method Bedside Commode Bedside Commode # Voids 2 2 2 # Bowel Movements 1 0 - Exam GENERAL EXAM: Alert, pleasant 63-year-old white female, currently on 2 L per nasal cannula, comfortable in no apparent distress. HEAD: Normocephalic/atraumatic. EYES: Normal reaction of pupils, equal size. Conjunctiva pink, sclera white. NOSE: Clear with pink turbinates. THROAT: No erythema or exudates. NECK: No masses, no JVD, no thyroid enlargement, no adenopathy. CHEST: No chest wall deformity. Symmetrical expansion. LUNGS: Equal air entry with coarse crackles in bilateral bases, no wheezes noted on today's exam. CVS: Regular rate and rhythm, normal S1 and S2, no gallops, no murmurs, no rubs ABDOMEN: Soft, nontender. No hepatosplenomegaly, normal bowel sounds, no guarding or rigidity. EXTREMITIES: No clubbing, 1+ bilateral lower extremity edema, no cyanosis, 2+ pulses and upper and lower extremities. MUSCULOSKELETAL: Muscle strength and tone normal. SPINE: No scoliosis or deformity SKIN: No rashes CENTRAL NERVOUS SYSTEM: Alert and oriented -3. No focal deficits, tone is normal in all 4 extremities. PSYCHIATRIC: Alert and oriented -3. Appropriate affect. Intact judgment and insight. - Labs CBC & Chem 7: 09/18/18 06:44 09/18/18 06:44 Labs: Abnormal Lab Results - Last 24 Hours (Table) 09/18/18 09/18/18 Range/Units 06:44 06:44 WBC 20.1 H (3.8-10.6) k/uL RDW 16.5 H (11.5-15.5) % Neutrophils # 17.1 H (1.3-7.7) k/uL Chloride 92 L (98-107) mmol/L Carbon Dioxide 39 H (22-30) mmol/L BUN 29 H (7-17) mg/dL Assessment and Plan Plan: Assessment: #1. Acute exacerbation of chronic congestive heart failure with preserved left ventricular systolic function as previously noted #2. History of bronchiolitis obliterans organizing pneumonia #3. History of Hodgkin's lymphoma status post radiation #4. Hypertension, hyperlipidemia #5. 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 Hypothyroidism #7. Recent hospitalization for healthcare acquired pneumonia #8. Obstructive sleep apnea on CPAP therapy #9. History of renal cancer status post right nephrectomy #10. History of anxiety/depression Plan: Continue oral diuretics, continue Symbicort, nebulized bronchodilators, increase activity, increase ambulation. Continue current dose of prednisone. Today's chest x-ray has been reviewed, showed COPD, with basilar atelectasis, small stable nodular density in the right upper lobe. Blood urine and sputum cultures remain negative. No fever or chills, we'll continue with current antibiotic coverage. Clinically patient is improving, possible discharge home in the next 24 hours. I performed a history & physical examination of the patient and discussed their management with my nurse practitioner, Esther Yusuf. I reviewed the nurse practitioner's note and agree with the documented findings and plan of care. Lung sounds are positive for bibasilar crackles. The findings and the impression was discussed with the patient. I attest to the documentation by the nurse practitioner. Time with Patient: Less than 30
[2018-09-18] MEDS: SERTRALINE 100 MG TAB PO SCH (18:04)
[2018-09-18] MEDS: FERROUS SULFATE 325 MG TAB PO SCH (18:04)
[2018-09-18] MEDS: MONTELUKAST 10 MG TAB PO SCH (20:36)
[2018-09-18] MEDS: ATORVASTATIN 20 MG TAB PO SCH (20:36)
[2018-09-18] MEDS: SPIRONOLACTONE 25 MG TAB PO SCH (20:36)
[2018-09-19] MEDS: LEVOTHYROXINE 100 MCG TAB PO SCH (06:16)
[2018-09-19] MEDS: SYMBICORT 160-4.5 MCG INHALER INHALATION SCH (07:41)
[2018-09-19] MEDS: IPRATROPIUM-ALBUTEROL 3 ML NEB INHALATION SCH ×2 (07:41→11:27)
[2018-09-19] MEDS: LORATADINE 10 MG TAB PO SCH (08:00)
[2018-09-19] MEDS: HEPARIN SODIUM,PORCINE 5,000 UNIT/ML 1 ML VIAL SQ SCH (08:00)
[2018-09-19] MEDS: PANTOPRAZOLE 40 MG TABLET PO SCH (08:00)
[2018-09-19] MEDS: FUROSEMIDE 40 MG TAB PO SCH (08:00)
[2018-09-19] MEDS: ARIPiprazole 2 MG TAB PO SCH (08:00)
[2018-09-19] MEDS: HYDROcodone/APAP 7.5-325MG 1 EACH TAB PO PRN (08:04)
[2018-09-19] MEDS: ALPRAZolam 0.5 MG TAB PO PRN (08:04)
[2018-09-19 08:38] VITALS: BP 107/56; TEMP 97.9
[2018-09-19 09:39] VITALS: RESP 18
[2018-09-19 10:56] LABS: Anisocytosis Slight; Basophils # (A) 0.1 k/uL (0-0.2); Basophils % (A) 0 %; Eosinophils # (A) 0.2 k/uL (0-0.7); Eosinophils % (A) 1 %; HCT 37.8 % (34.0-46.0); HGB 11.6 gm/dL (11.4-16.0); Hypochromasia Moderate; Lymphocytes # (A) 2.1 k/uL (1.0-4.8); Lymphocytes % (A) 13 %; MCH 26.8 pg (25.0-35.0); MCHC 30.7 g/dL (31.0-37.0); MCV 87.2 fL (80.0-100.0); Mean Platelet Volume 6.8; Monocytes # (A) 0.6 k/uL (0-1.0); Monocytes % (A) 4 %; Neutrophils # (A) 12.8 k/uL (1.3-7.7); Neutrophils % (A) 81 %; Platelet Count 396 k/uL (150-450); RBC 4.34 m/uL (3.80-5.40); RDW 16.6 % (11.5-15.5); WBC 15.8 k/uL (3.8-10.6)
[2018-09-19] MEDS: predniSONE 10 MG TAB PO SCH (11:14)
[2018-09-19] MEDS: METOPROLOL SUCCINATE (ER) 25 MG TAB.ER.24H PO SCH (11:14)
[2018-09-19] MEDS: POTASSIUM CHLORIDE ER 10 MEQ TAB.ER.PRT PO SCH (11:14)
[2018-09-19 11:15] LABS: ALT 25 U/L (9-52); AST 18 U/L (14-36); Albumin 3.8 g/dL (3.5-5.0); Alkaline Phosphatase 76 U/L (38-126); Anion Gap 8 mmol/L; Blood Urea Nitrogen 28 mg/dL (7-17); Calcium 9.9 mg/dL (8.4-10.2); Carbon Dioxide 38 mmol/L (22-30); Chloride 93 mmol/L (98-107); Glucose 108 mg/dL (74-99); Potassium 3.8 mmol/L (3.5-5.1); Sodium 139 mmol/L (137-145); Total Bilirubin 0.7 mg/dL (0.2-1.3); Total Protein 6.7 g/dL (6.3-8.2)
[2018-09-19 11:42] VITALS: PULSE 76
--- NOTE | 2018-09-19 12:16 | P.DS ---
Providers Date of admission: 09/13/18 16:09 Expected date of discharge: 09/19/18 Attending physician: Michelle Naqvi Consults: 09/13/18 16:07 Consult Physician Routine Consulting Provider: Amber Jasso Consult Reason/Comments: chf Do you want consulting provider notified?: Yes 09/14/18 12:08 Consult Physician Routine Consulting Provider: Walt Valadez Consult Reason/Comments: shortness of breath Do you want consulting provider notified?: Yes 09/18/18 14:01 Consult Physician Routine Consulting Provider: Manuel Evans Consult Reason/Comments: inpatient rehab Do you want consulting provider notified?: Yes Primary care physician: Michelle Naqvi [facility] Course: Discharge diagnosis 1. Acute on chronic diastolic congestive heart failure exacerbation: Patient did have CHF findings on chest x-ray and elevated BNP. Echo completed in May that showed an EF of 50-55%. Seen by cardiology. Patient treated with IV Lasix. Cardiology has recommended Lasix 40 mg by mouth twice a day which is an increased dose from Lasix 40 daily which she took 2. history of bronchiolitis obliterans organizing pneumonia. Pulmonary following. They have decreased her prednisone 50 mg daily down to 10 mg daily 3. History of Hodgkin lymphoma status post chemo and radiation treatment in 1978 4. History of breast cancer status post mastectomy 5. History of renal cancer status post partial nephrectomy 6. History of essential hypertension 7. Hyperlipidemia 8. T8 compression fracture continue using back brace 9. Leukocytosis likely related to steroids patient is chronically on prednisone for her bronchiolitis obliterans organizing pneumonia. 10. Hypothyroidism continue Synthroid 11. Chronic persistent asthma continue her DuoNeb updraft treatments 12. Sinus headache: Change Claritin to daily 13. Acute on chronic hypoxic respiratory failure secondary to CHF exacerbation Hospital course this is a 63-year-old female with a known past medical history of hyperlipidemia , nonischemic cardiomyopathy, hypothyroidism, breast cancer with prior mastectomy, aortic valve insufficiency, hypotension we'll follow along as patient has undergone chemotherapy and radiation treatment, obstructive sleep apnea, BOOP( bronchiolitis obliterans organizing pneumonia), thoracic spinal fracture and wears back brace and history of asthma. Patient presents to the emergency room with complaints of worsening shortness of breath over the last 2 weeks. She reports some left-sided rib pain. She does have a cough. She's also noted increase in her lower extremity edema. She has difficulty laying flat. Also increase shortness of breath with activity. Chest x-ray on admission showed cardiomegaly and chronic parenchymal change with persistent small left pleural effusion and associated left basal atelectasis. Mild diffuse interstitial edema felt to be present bilaterally. Correlate for fluid overload and congestive heart failure exacerbation on top for chronic disease. Pulmonary and cardiology consulted. Patient did have elevated BNP level. She started on IV Lasix. Echo from May showed an EF of 50-55%. Patient denies any fever, chills, sweats. Denies any nausea or vomiting. Denies any bowel movement changes or urinary symptoms. 09/15/2018 patient shortness of breath is showing some improvement. Still having some short of breath with activity. She is requiring 3 L of oxygen. She usually wears oxygen as needed home. Weight has decreased from 88.5 kg to 86.3 kg. Patient denies any chest pain. Denies any nausea or vomiting. No bowel movement today. Denies any burning with urination On 09/16/2018 patient is alert and oriented 3 in no apparent distress she was seen and examined on the 3rd telemetry floor, her shortness of breath is improving she denies any chest pain, no cough no fever or chills no headache or dizziness there is no nausea or vomiting no abdominal pain no diarrhea, and no urinary symptoms On 09/17/2018 patient was seen and examined on the telemetry floor she is alert and oriented x3 shortness of breath is improving she has occasional cough she is complaining of constipation otherwise she denies any complaints there is no fever or chills no headache no dizziness no chest pain no nausea or vomiting no abdominal pain no diarrhea and no urinary symptoms 09/18/2018 patient reports that she is not feeling well today. She had some nausea earlier this morning. Now complaining of a sinus headache which she takes Zyrtec. She'll receive Claritin here. Still reporting some shortness of breath. She is only ambulating to the bedside commode. Weight has decreased from 86-85.3 kg. She had remained on the IV Lasix through the weekend. She denies any chest pain. Reports having formed stools. Denies any vomiting. Patient is medically stable for discharge on 09/19/2018. She's been cleared by cardiology and pulmonary services. Patient remained in the hospital yesterday because she had been feeling weak nauseated and had headache. The symptoms have resolved. Her weakness is improving. She is working with physical therapy has been up and ambulating. The recommending home with home care. She is not a candidate for inpatient rehab. Cardiology has adjusted the Lasix to 40 mg by mouth twice a day. Patient symptoms are improving. She is still requiring home oxygen. Patient will be discharged with 3 L of nasal cannula. At home she was using oxygen just as needed. Patient will follow-up with cardiology, pulmonary and Dr. Naqvi in the office. Recommend checking BMP in 1 week I performed an examination of the patient and discussed their management with the physician Loading Supervisor. I have reviewed the Physician Loading Supervisor's notes and agree with the documented findings and plan of care Patient Condition at Discharge: Stable Plan - Discharge Summary Discharge Rx Participant: Yes New Discharge Prescriptions: New Furosemide [Lasix] 40 mg PO BID@0900,1600 #60 tab predniSONE 10 mg PO DAILY@1200 #30 tab Continue Budesonide-Formot 160-4.5 Mcg [Symbicort 160-4.5 Mcg Inhaler] 2 puff INHALATION RT-BID Simvastatin [Zocor] 40 mg PO HS Sertraline [Zoloft] 200 mg PO AC-SUPPER Montelukast [Singulair] 10 mg PO HS Metoprolol Succinate (ER) [Toprol XL] 25 mg PO DAILY@1200 Levothyroxine Sodium [Synthroid] 100 mcg PO DAILY Albuterol Sulfate [Proair Hfa] 2 puff INHALATION RT-Q6H PRN PRN Reason: Shortness Of Breath ARIPiprazole [Abilify] 2 mg PO DAILY Ranitidine HCl [Zantac] 150 mg PO HS PRN PRN Reason: Heartburn Acyclovir [Zovirax] 1 applic TOPICAL 5XD PRN PRN Reason: Cold Sores Acyclovir 400 mg PO DAILY PRN PRN Reason: Cold Sores Cetirizine HCl [Zyrtec] 10 mg PO HS PRN PRN Reason: Allergy Symptoms ALPRAZolam [Xanax] 0.5 mg PO Q8H PRN PRN Reason: Anxiety Omeprazole 40 mg PO BID Ergocalciferol [Vitamin D2 (DRISDOL)] 50,000 unit PO SA HYDROcodone/APAP 7.5-325MG [Milton 7.5-325] 1 tab PO Q6H PRN PRN Reason: Pain Ipratropium-Albuterol Nebulize [Duoneb 0.5 mg-3 mg/3 ml Soln] 3 ml INHALATION RT-QID ampul.neb Potassium Chloride [K-Tab ER] 10 meq PO DAILY@1200 Spironolactone [Aldactone] 25 mg PO HS Ferrous Sulfate [Iron (65 MG Elemental)] 325 mg PO W/SUPPER Discontinued Furosemide [Lasix] 40 mg PO DAILY@1200 predniSONE 15 mg PO DAILY@1200 Discharge Medication List Budesonide-Formot 160-4.5 Mcg [Symbicort 160-4.5 Mcg Inhaler] 2 puff INHALATION RT-BID 10/05/16 [History] Levothyroxine Sodium [Synthroid] 100 mcg PO DAILY 10/05/16 [History] Metoprolol Succinate (ER) [Toprol XL] 25 mg PO DAILY@1200 10/05/16 [History] Montelukast [Singulair] 10 mg PO HS 10/05/16 [History] Sertraline [Zoloft] 200 mg PO AC-SUPPER 10/05/16 [History] Simvastatin [Zocor] 40 mg PO HS 10/05/16 [History] ARIPiprazole [Abilify] 2 mg PO DAILY 04/06/17 [History] Albuterol Sulfate [Proair Hfa] 2 puff INHALATION RT-Q6H PRN 04/06/17 [History] Acyclovir 400 mg PO DAILY PRN 05/13/17 [History] Acyclovir [Zovirax] 1 applic TOPICAL 5XD PRN 05/13/17 [History] Cetirizine HCl [Zyrtec] 10 mg PO HS PRN 05/13/17 [History] Ranitidine HCl [Zantac] 150 mg PO HS PRN 05/13/17 [History] ALPRAZolam [Xanax] 0.5 mg PO Q8H PRN 06/19/18 [History] Ergocalciferol [Vitamin D2 (DRISDOL)] 50,000 unit PO SA 06/19/18 [History] Omeprazole 40 mg PO BID 06/19/18 [History] HYDROcodone/APAP 7.5-325MG [Milton 7.5-325] 1 tab PO Q6H PRN 07/03/18 [History] Ipratropium-Albuterol Nebulize [Duoneb 0.5 mg-3 mg/3 ml Soln] 3 ml INHALATION RT -QID ampul.neb 07/09/18 [Rx] Ferrous Sulfate [Iron (65 MG Elemental)] 325 mg PO W/SUPPER 09/13/18 [History] Potassium Chloride [K-Tab ER] 10 meq PO DAILY@1200 09/13/18 [History] Spironolactone [Aldactone] 25 mg PO HS 09/13/18 [History] Furosemide [Lasix] 40 mg PO BID@0900,1600 #60 tab 09/19/18 [Rx] predniSONE 10 mg PO DAILY@1200 #30 tab 09/19/18 [Rx] Follow up Appointment(s)/Referral(s): Amber Jasso MD [STAFF PHYSICIAN] - 2 Weeks [facility], [NON-STAFF] - As Needed Michelle Naqvi MD [Primary Care Provider] - 1 Week Walt Valadez DO [Doctor of Osteopathic Medicine] - 1 Week Activity/Diet/Wound Care/Special Instructions: diet: cardiac Activity: as tolerated Discharge Disposition: HOME WITH HOME HEALTH SERVICES
--- NOTE | 2018-09-19 12:55 | P.PN ---
Subjective Progress Note Date: 09/19/18 Principal diagnosis: Acute exacerbation of chronic congestive heart failure with preserved left ventricular systolic function This is 63-year-old white female patient of Dr. Naqvi, who presented emergency department on 09/13/2018 for evaluation of worsening shortness of breath, swelling in both leg, weight gain, although about 7 pounds over one week's period of time, cough, yellow phlegm production and pain over left side of her chest worsened with deep inspiration. She states her shortness of breath is worse with lying flat. Patient has an underlying history of Barnett proven bronchiolitis obliterans organizing pneumonia, history of left wrist cancer, status post mastectomy, and reconstructive surgery, Hodgkin's lymphoma status post radiation, GERD, hypertension, hyperlipidemia, obstructive sleep apnea on CPAP therapy, congestive heart failure with diastolic dysfunction, Yuri's thyroiditis, chronic bronchial asthma and depression. She follows with Dr. Valadez in the pulmonary office. Her maintenance medications include Symbicort, Singulair, albuterol, patient is on maintenance prednisone dose, currently at 15 mg daily. She was recently hospitalized with right upper lobe healthcare acquired pneumonia, she was treated with broad-spectrum antibiotics including Zosyn and Levaquin, cultures from that admission were all negative. Patient was sent to rehab after discharge, and she is only been home for the last 3 weeks. Yesterday she went to the pulmonary office for pulmonary function test, however in view of her increasing shortness of breath she was sent to the emergency department for further evaluation and treatment. Chest x-ray was completed, and showed cardiomegaly, chronic parenchymal changes with persistent small left pleural effusion, and associated left basilar atelectasis and/or infiltrate. New mild diffuse interstitial edema was noted bilaterally. Changes are consistent with fluid overload, and CHF exacerbation. Lab work showed WBC of 14.6, hemoglobin 10.5, platelets 517, sodium was 139, potassium is 4.7, BUN was 37 creatinine is 1.1, proBNP was elevated at 1280, and troponin was negative 1. Follow-up blood work shows WBC of 13, hemoglobin of 10.4, sodium is 140, potassium is 3.8, CO2 of 33, BUN is 21, creatinine 0.82. Patient was started on IV Lasix. She is diuresing, and she is feeling better today. We were asked to see the patient in consultation for shortness of breath. On 09/15/2018 patient seen in follow-up on selective care unit. He is diuresing , he is she is in -4120 ML net fluid balance over the last 24 hours, her weight is down 3 kg since admission. Still has the residual bilateral lower extremity swelling, but it is improving. Lung sounds are positive for bibasilar crackles , and some scattered wheezes. Yesterday we decreased the dose of maintenance prednisone 10 mg. Patient continues on IV diuretics, with Lasix 40 mg twice daily. Today's lab work has been reviewed, shows WBC trending down to 11.9, hemoglobin is 10.8, sodium is 140, potassium is 3.6, chloride is 93, CO2 is 29, BUN is 20, creatinine 0.74. LFTs are within normal limits. No new chest x- rays today. She continues on 3 L per nasal cannula, her pulse ox of 90%, no fever, no chills. On 09/17/2018 patient seen in follow-up on selective care unit. She is resting comfortably in bed, in no acute distress, lung sounds reveal right lower lobe crackles posteriorly, no wheezes, no rhonchi. Still have some residual swelling in her bilateral lower extremities. She is maintained on IV diuretics , Lasix 40 mg every 12 hours, and -2 L over the last 24 hours. Overall breathing better, feeling better. Stress chest x-ray has been reviewed, showed cardiomegaly, old granulomatous disease, improved aeration at the left lung base. Continue with current plan of treatment. Labs have been reviewed, WBCs 11.0, hemoglobin is 11.3, sodium is 139, potassium is 3.7, chloride is 93, CO2 is 38, B1 is 26, creatinine 0.88. Events overnight, no specific complaints. Since prednisone was decreased down to 10 mg daily. On 09/18/2018 patient seen in follow-up on selective care unit. She is in no acute distress, she is ambulating with physical therapy, she is complaining of being sleepy today. She tolerated ambulation quite well. Lung sounds reveal bibasilar crackles. She is currently on 2 L per nasal cannula and her pulse ox is 95%, she is afebrile, hemodynamically stable, she is diuresing, is in -3720 ML fluid balance over the last 24 hours. She is down 0.7 kg her last 24 hours. Lab work has been reviewed, WBC is 20.1, hemoglobin is 12.3, sodium is 140, potassium is 3.8, chloride is 92, CO2 39, BUN is 29, creatinine 0.83. On 09/19/2018 patient seen in follow-up on medical surgical floor. Reports improvement with dyspnea, denies any fever or chills, denies any chest pain. She states is more awake today, more energetic, she is currently on 3 L per nasal cannula, pulse ox is 96%, she is afebrile. She's been tolerating ambulation. Labs have been reviewed, there may be sees down to 15.8 from 20.1, hemoglobin is 11.6, sodium is 139, potassium 3.8, chloride is 93, CO2 is 38, B1 is 20, creatinine 0.7. Overall she is improving, bilateral extremity edema is improving. He has been transitioned to oral diuretics. No new chest x-rays today, no acute events overnight. From pulmonary perspective patient is stable for discharge home today Objective - Vital Signs Vital signs: Vital Signs Temp 97.9 F 09/19/18 07:21 Pulse 76 09/19/18 11:42 Resp 18 09/19/18 08:00 BP 107/56 09/19/18 07:21 Pulse Ox 99 09/19/18 07:21 Intake & Output 09/18/18 09/19/18 09/19/18 18:59 06:59 18:59 Intake Total 840 Output Total 1400 Balance -560 Intake: Oral 840 Output: Urine 1400 Other: Voiding Method Bedside Commode # Voids 2 1 # Bowel Movements 0 - Exam GENERAL EXAM: Alert, pleasant 63-year-old white female, currently on 2 L per nasal cannula, comfortable in no apparent distress. HEAD: Normocephalic/atraumatic. EYES: Normal reaction of pupils, equal size. Conjunctiva pink, sclera white. NOSE: Clear with pink turbinates. THROAT: No erythema or exudates. NECK: No masses, no JVD, no thyroid enlargement, no adenopathy. CHEST: No chest wall deformity. Symmetrical expansion. LUNGS: Equal air entry with coarse crackles in bilateral bases, no wheezes noted on today's exam. CVS: Regular rate and rhythm, normal S1 and S2, no gallops, no murmurs, no rubs ABDOMEN: Soft, nontender. No hepatosplenomegaly, normal bowel sounds, no guarding or rigidity. EXTREMITIES: No clubbing, 1+ bilateral lower extremity edema, no cyanosis, 2+ pulses and upper and lower extremities. MUSCULOSKELETAL: Muscle strength and tone normal. SPINE: No scoliosis or deformity SKIN: No rashes CENTRAL NERVOUS SYSTEM: Alert and oriented -3. No focal deficits, tone is normal in all 4 extremities. PSYCHIATRIC: Alert and oriented -3. Appropriate affect. Intact judgment and insight. - Labs CBC & Chem 7: 09/19/18 10:44 09/19/18 10:44 Labs: Abnormal Lab Results - Last 24 Hours (Table) 09/19/18 09/19/18 Range/Units 10:44 10:44 WBC 15.8 H (3.8-10.6) k/uL MCHC 30.7 L (31.0-37.0) g/dL RDW 16.6 H (11.5-15.5) % Neutrophils # 12.8 H (1.3-7.7) k/uL Chloride 93 L (98-107) mmol/L Carbon Dioxide 38 H (22-30) mmol/L BUN 28 H (7-17) mg/dL Glucose 108 H (74-99) mg/dL Assessment and Plan Plan: Assessment: #1. Acute exacerbation of chronic congestive heart failure with preserved left ventricular systolic function as previously noted #2. History of bronchiolitis obliterans organizing pneumonia #3. History of Hodgkin's lymphoma status post radiation #4. Hypertension, hyperlipidemia #5. 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 Hypothyroidism #7. Recent hospitalization for healthcare acquired pneumonia #8. Obstructive sleep apnea on CPAP therapy #9. History of renal cancer status post right nephrectomy #10. History of anxiety/depression Plan: Patient remains stable, no acute events overnight, vital signs are stable, she is tolerating ambulation, she has been transitioned to oral Lasix, no fever or chills. From pulmonary perspective patient can be discharged home today on maintenance dose of prednisone 10 mg daily, her maintenance inhalers and nebulized treatments. Follow-up with Dr. Valadez in the office in one week I performed a history & physical examination of the patient and discussed their management with my nurse practitioner, Esther Yusuf. I reviewed the nurse practitioner's note and agree with the documented findings and plan of care. Lung sounds are positive for bibasilar crackles. The findings and the impression was discussed with the patient. I attest to the documentation by the nurse practitioner. Time with Patient: Less than 30
== END 2018-09-19 14:38 | disposition home health service (06) | DRG 291 ==
LOC: EC 13:18 → 3SCARD 16:09 → 4MS4W 09-18 17:06
PROVIDERS: ADMIT Internal Medicine; ATTEND Internal Medicine
DX: I11.0 Hypertensive heart disease with heart failure (principal); J96.21 Acute and chronic respiratory failure with hypoxia; E87.2 Acidosis; J45.31 Mild persistent asthma with (acute) exacerbation; J98.11 Atelectasis; M48.54XA Collapsed vertebra, not elsewhere classified, thoracic region, initial encounter for fracture; I50.33 Acute on chronic diastolic (congestive) heart failure; Z85.3 Personal history of malignant neoplasm of breast; Z85.528 Personal history of other malignant neoplasm of kidney; Z85.72 Personal history of non-Hodgkin lymphomas; L92.9 Granulomatous disorder of the skin and subcutaneous tissue, unspecified; D72.829 Elevated white blood cell count, unspecified; T38.0X5A Adverse effect of glucocorticoids and synthetic analogues, initial encounter; E78.5 Hyperlipidemia, unspecified; G47.33 Obstructive sleep apnea (adult) (pediatric); I35.1 Nonrheumatic aortic (valve) insufficiency; I42.8 Other cardiomyopathies; I44.7 Left bundle-branch block, unspecified; I27.20 Pulmonary hypertension, unspecified; K21.9 Gastro-esophageal reflux disease without esophagitis; K59.00 Constipation, unspecified; M81.0 Age-related osteoporosis without current pathological fracture; Z79.51 Long term (current) use of inhaled steroids; Z79.52 Long term (current) use of systemic steroids; Z82.49 Family history of ischemic heart disease and other diseases of the circulatory system; Z87.891 Personal history of nicotine dependence; Z90.12 Acquired absence of left breast and nipple; Z90.5 Acquired absence of kidney; Z90.710 Acquired absence of both cervix and uterus; Z92.21 Personal history of antineoplastic chemotherapy; Z92.3 Personal history of irradiation; Z99.81 Dependence on supplemental oxygen; Z98.42 Cataract extraction status, left eye; Z98.41 Cataract extraction status, right eye; Z96.1 Presence of intraocular lens; E06.3 Autoimmune thyroiditis; J84.89 Other specified interstitial pulmonary diseases; F32.9 Major depressive disorder, single episode, unspecified; Z81.1 Family history of alcohol abuse and dependence; G89.29 Other chronic pain; Z90.81 Acquired absence of spleen; E03.9 Hypothyroidism, unspecified; Z79.890 Hormone replacement therapy; Z79.899 Other long term (current) drug therapy; Z82.61 Family history of arthritis; Z83.511 Family history of glaucoma; Z82.0 Family history of epilepsy and other diseases of the nervous system
CPT/HCPCS: 36415; 71046; 80053; 82550; 82553; 83735; 83880; 84484; 85025; 85610; 85730; 93005; 94640; 94760; 96374; 99285

== ENCOUNTER → 2018-10-31 | Outpatient (CLI) | payer BC ==
[2018-10-31 19:22] LABS: Anion Gap 9.9 mmol/L (4.00-12.00); Calcium 9.2 mg/dL (8.7-10.3); Carbon Dioxide 29.1 mmol/L (21.6-31.8); Potassium 3.5 mmol/L (3.5-5.5)
== END | disposition home or self-care (01) ==
LOC: LABWHC1 12:26
PROVIDERS: ATTEND Nurse Practitioner Adult Health
DX: I50.32 Chronic diastolic (congestive) heart failure (principal); I42.8 Other cardiomyopathies
CPT/HCPCS: 36415; 80048

== ENCOUNTER → 2018-10-31 | Outpatient (CLI) | payer BC ==
--- NOTE | 2018-10-31 12:45 | CT ---
EXAMINATION TYPE: CT chest wo con DATE OF EXAM: 10/31/2018 COMPARISON: July 03, 2018 HISTORY: SOB, cryptogenic organizing pneumonia CT DLP: [address] of the chest was performed with lung and mediastinal window settings submitted. The la ck of contrast limits evaluation of the vascular, mediastinal and parenchymal structures including th e upper abdomen. LUNGS: Multifocal airspace consolidation throughout both lung doyle seen previously has improved sig nificantly. There continues to be patchy density in the region of the lingula. Groundglass infiltrate s are seen within the upper lobes bilaterally. Enlarging left-sided pleural effusion with maximal AP dimension of 4 cm. Scattered nodular densities noted the left lower lobe measuring 7 mm image 33, ple ural-based left lower lobe image 33 measuring 8 mm lingula 6 mm image 24, right upper lobe 5 mm image 18. MEDIASTINUM/MENDOZA: Thoracic aorta is of normal caliber with limited evaluation given lack of contrast . The heart is not enlarged. No evidence for mediastinal mass. No lymph nodes greater than 1cm. C alcified mediastinal and hilar lymph nodes. UPPER ABDOMEN: No significant abnormality is seen. OTHER: Left breast implant noted. IMPRESSION: 1. Interval improvement in multifocal airspace consolidation. Continued patchy density in the region of the lingula may reflect a residual infiltrate. Scattered upper lobe groundglass infiltrates noted . 2. Enlarging left-sided pleural effusion as noted. 3. Scattered pulmonary nodules are nonspecific. Continued follow-up is advised
== END ==
LOC: RADCTMAIN 12:01
PROVIDERS: ATTEND Internal Medicine Critical Care Medicine
DX: J90 Pleural effusion, not elsewhere classified (principal); R91.8 Other nonspecific abnormal finding of lung field; R93.89 Abnormal findings on diagnostic imaging of other specified body structures
CPT/HCPCS: 71250

== ENCOUNTER 2019-01-23 16:40 | Inpatient (IN) | payer BC ==
--- NOTE | 2019-01-23 17:31 | ED ---
General Adult HPI - General Chief complaint: Shortness of Breath Stated complaint: SOB Time Seen by Provider: 01/23/19 17:05 Source: patient, family, RN notes reviewed, old records reviewed Mode of arrival: ambulatory Limitations: no limitations - History of Present Illness Initial comments: Chief complaint and history of present illness this is a 62-year-old female here with her daughter. The patient reports having had discomfort just below her right breast area for over 3 weeks. It was worse earlier. Last night she felt more short of breath and almost called the ambulance. She came in today because is been persistent over 3 weeks. Occasionally it hurts when she pushes on the rib area other times hurts when she coughs. Currently she does not have pain in that area. Patient has extensive past history of respiratory issues and problems as well as multiple cancers. - Related Data Home Medications Medication Instructions Recorded Confirmed Budesonide-Formot 160-4.5 Mcg 2 puff INHALATION RT-BID 10/05/16 01/23/19 [Symbicort 160-4.5 Mcg Inhaler] Levothyroxine Sodium [Synthroid] 100 mcg PO DAILY 10/05/16 01/23/19 Metoprolol Succinate (ER) [Toprol 25 mg PO DAILY 10/05/16 01/23/19 XL] Montelukast [Singulair] 10 mg PO HS 10/05/16 01/23/19 Sertraline [Zoloft] 200 mg PO AC-SUPPER 10/05/16 01/23/19 Simvastatin [Zocor] 40 mg PO HS 10/05/16 01/23/19 Albuterol Sulfate [Proair Hfa] 2 puff INHALATION RT-Q6H PRN 04/06/17 01/23/19 Acyclovir 400 mg PO DAILY PRN 05/13/17 01/23/19 Acyclovir [Zovirax] 1 applic TOPICAL 5XD PRN 05/13/17 01/23/19 Cetirizine HCl [Zyrtec] 10 mg PO HS PRN 05/13/17 01/23/19 Ranitidine HCl [Zantac] 150 mg PO HS PRN 05/13/17 01/23/19 ALPRAZolam [Xanax] 0.5 mg PO Q8H PRN 06/19/18 01/23/19 Ergocalciferol [Vitamin D2 50,000 unit PO SA 06/19/18 01/23/19 (DRISDOL)] Omeprazole 40 mg PO BID 06/19/18 01/23/19 Potassium Chloride [K-Tab ER] 10 meq PO DAILY 09/13/18 01/23/19 Spironolactone [Aldactone] 25 mg PO HS 09/13/18 01/23/19 ARIPiprazole [Abilify] 5 mg PO DAILY 01/23/19 01/23/19 Previous Rx's Medication Instructions Recorded Ipratropium-Albuterol Nebulize 3 ml INHALATION RT-QID ampul.neb 07/09/18 [Duoneb 0.5 mg-3 mg/3 ml Soln] Furosemide [Lasix] 40 mg PO BID@0900,1600 #60 tab 09/19/18 Allergies Allergy/AdvReac Type Severity Reaction Status Date / Time No Known Allergies Allergy Verified 01/23/19 17:36 Review of Systems ROS Statement: Those systems with pertinent positive or pertinent negative responses have been documented in the HPI. Review of systems. She is denying headache or visual acuity changes. Denies neck pain. She does have discomfort when she coughs not when she takes a deep breath from the rib cage area below the right breast straight through to the back on the right side. As she states coughing makes it worse. mildly productive cough yellow in color. Denies fever which she checks often.At home one is she palpated the area that hurt as well. Though currently not now. Denies nausea vomiting or diarrhea. Denying abdominal pain at this time denying any neuro deficits. All systems were reviewed. Past medical problems significant for BOOP, breast cancer in 2004 as well as a slow-growing renal carcinoma diagnosed approximately 3 months ago with local removal of the tumor, partial nephrectomy. Also has a history of GERD, hyperlipidemia, hypertension, sleep apnea and hypothyroidism. The patient's cardiac issues include having had CHF in the past. The patient's surgeries include tonsils, adenoids, breast surgery, , total hysterectomy, orthopedic surgery, splenectomy because of Hodgkin's lymphoma. As noted above she's also had a partial nephrectomy because of what she describes a slow growing cancer. the patient has had several vertebral body collapses due to prolonged steroid use. Wears a brace at times. CPAP at home.Family history no cancers. Patient denies any ALLERGIES quit smoking smoke on a short while, many years ago. Denies alcohol use. ROS Other: All systems not noted in ROS Statement are negative. Past Medical History Past Medical History: Asthma, Cancer, Heart Failure, GERD/Reflux, Hyperlipidemia , Hypertension, Sleep Apnea/CPAP/BIPAP, Thyroid Disorder Additional Past Medical History / Comment(s): BOOP. CHF, echo showed EF 50-55%, anemia, multiple thoracic compression fractures with T8 being worsewears brace, past herpes simplex type I L buttock which was tx . Other hx:1978 Hodgkins Lymphoma status post chemo and radiation chest area in 1978; L Breast CA-status post mastectomy(sx only), R renal carcinoma with partial nephrectomy, BOOP, home 02 prn, ASHKAN with CPAP use, hypothyroid, chronic back pain, recently given a back brace, osteoporosis. History of Any Multi-Drug Resistant Organisms: None Reported Past Surgical History: Adenoidectomy, Breast Surgery, Section, Hysterectomy, Orthopedic Surgery, Tonsillectomy Additional Past Surgical History / Comment(s): Spleenectomy, laparotomy, colonoscopy, EGD, bilateral 5th toe surgery for spurs, L breast mastectomy with breast reconstruction, bronchoscopy/lung bx, rt kidney partial nephrectomy, bilateral cataract removals with lens implants. Past Anesthesia/Blood Transfusion Reactions: No Reported Reaction Additional Past Anesthesia/Blood Transfusion Reaction / Comment(s): clausterphobia (mri's) Past Psychological History: Anxiety, Depression Smoking Status: Former smoker - Past Family History Mother Family Medical History: Osteoarthritis (OA) Additional Family Medical History / Comment(s): glaucoma Brother(s) Additional Family Medical History / Comment(s): MS Father Family Medical History: Liver Disease, Myocardial Infarction (GA) Additional Family Medical History / Comment(s): age 70 -mi, alcoholic General Exam - General Exam Comments Initial Comments: General: The patient is awake and alert, here because a three-week history of pain to the rib cage that goes through the right side of the rib cage from just under the right breast over the back. Reproducible with coughing. Reproducible sometimes with palpation. Patient appears to be mildly dyspneic. Patient does have a history of asthma, CHF and BOOP. vital signs shows temperature 97.6 pulse 61 respiratory rate 18 pulse ox 94% room air blood pressure 1 weight over 70. Eye: Pupils are equal, round and reactive to light, extra-ocular movements are intact ; there is normal conjunctiva bilaterally. No signs of icterus. evidence of bilateral cataract surgery. Ears, nose, mouth and throat: There are moist mucous membranes and no oral lesions. Neck: The neck is supple, there is no tenderness , no lymphadenopathy. Cardiovascular: There is a regular rate and rhythm. No murmur, rub or gallop is appreciated. Respiratory: lungs are clear on the right side, crepitant rales on the left side. Currently free of pain 1 deep breathing or palpation of the rib cage. Gastrointestinal: Soft, non-distended, non-tender abdomen without masses or organomegaly noted. There is no rebound or guarding present. No CVA tenderness. Bowel sounds are unremarkable. Back: There is no tenderness to palpation in the midline. family states over the past year to year and a half she has developed possible deformity toward the right half of her back. No palpable lipoma noted. The patient is mildly kyphotic Musculoskeletal: Normal ROM, no tenderness, There is no pedal edema. Neurological: CN II-XII intact, There are no obvious motor or sensory deficits. Coordination appears grossly intact. Speech is normal.no complaint of any neuro deficits. Skin: Skin is warm and dry and no rashes or lesions are noted. no rash noted. Early shingles was discussed. Patient advised as to what to look for. Possibility of the pain that she is feeling today could be first sign of shingles that may erupt. Psychiatric: Cooperative, appropriate mood & affect, normal judgment. Limitations: no limitations Course Vital Signs 01/23/19 16:52 Temperature 97.6 F Pulse Rate 61 Respiratory 18 Rate Blood Pressure 108/70 O2 Sat by Pulse 94 L Oximetry EKG Findings - EKG Comments: EKG Findings:: EKG was done and reviewed at 17; showing sinus bradycardia with left bundle branch block. Rate 101 VA interval is 168 QRS 148 QTc is 416 QTC is 539. Medical Decision Making - Medical Decision Making Medical decision making; this is a 63-year-old female with multiple comorbidities. She is here because is having discomfort to the area below her right breast radiating through to the back. She does have a history of breast cancer, recent kidney cancer. Asthma, CHF,BOOP. Also reports a mild productive cough of late. The patient's labs show white count of 10.8 hemoglobin 13 hematocrit of 42 INR 0.9 d-dimer elevated 1.47. The patient's potassium is 4.2 BUN 19 creatinine 0.72 GFR 84. Glucose 80. Troponin less than 0.012. BNP 5980. As noted above the patient has unchanged EKG showing left bundle branch block. Chest x-ray was done and reviewed by radiologist his findings are reviewed Gen. course negative interstitial markings. There is mild pulmonary congestion. There is blunting of left costophrenic angle. There are calcified granulomas in the mediastinum. Thoracic aorta is atheromatous. There is old right sided rib fracture. Impression pulmonary fibrosis. There is probably mild congestive heart failure. Left pleural effusion is increased compared to old exam. Old granulomatous disease for a congestion unchanged. As read by Dr. Fuentes The case discussed with Dr. Elmore. Patient be admitted his service. With consultation from paraprofessional interpreter Dr. austin. At this time he is not requesting antibiotics. - Lab Data Result diagrams: 01/23/19 17:34 01/23/19 17:34 Lab Results 01/23/19 01/23/19 01/23/19 Range/Units 17:34 17:34 17:34 WBC 10.8 H (3.8-10.6) k/uL RBC 5.11 (3.80-5.40) m/uL Hgb 13.5 (11.4-16.0) gm/dL Hct 42.1 (34.0-46.0) % MCV 82.5 (80.0-100.0) fL MCH 26.5 (25.0-35.0) pg MCHC 32.1 (31.0-37.0) g/dL RDW 17.7 H (11.5-15.5) % Plt Count 431 (150-450) k/uL Neutrophils % 72 % Lymphocytes % 19 % Monocytes % 5 % Eosinophils % 2 % Basophils % 0 % Neutrophils # 7.7 (1.3-7.7) k/uL Lymphocytes # 2.1 (1.0-4.8) k/uL Monocytes # 0.6 (0-1.0) k/uL Eosinophils # 0.2 (0-0.7) k/uL Basophils # 0.0 (0-0.2) k/uL Anisocytosis Slight PT 10.1 (9.0-12.0) sec INR 0.9 (<1.2) APTT 24.5 (22.0-30.0) sec D-Dimer 1.47 H (<0.60) mg/L FEU Sodium 139 (137-145) mmol/L Potassium 4.2 (3.5-5.1) mmol/L Chloride 100 (98-107) mmol/L Carbon Dioxide 28 (22-30) mmol/L Anion Gap 11 mmol/L BUN 19 H (7-17) mg/dL Creatinine 0.76 (0.52-1.04) mg/dL Est GFR (CKD-EPI)AfAm >90 (>60 ml/min/1.73 sqM) Est GFR (CKD-EPI)NonAf 84 (>60 ml/min/1.73 sqM) Glucose 80 (74-99) mg/dL Calcium 9.9 (8.4-10.2) mg/dL Total Bilirubin 0.8 (0.2-1.3) mg/dL AST 27 (14-36) U/L ALT 28 (9-52) U/L Alkaline Phosphatase 105 (38-126) U/L Creatine Kinase 26 L (30-135) U/L Troponin I (0.000-0.034) ng/mL NT-Pro-B Natriuret Pep pg/mL Total Protein 6.8 (6.3-8.2) g/dL Albumin 4.0 (3.5-5.0) g/dL 01/23/19 01/23/19 Range/Units 17:34 17:34 WBC (3.8-10.6) k/uL RBC (3.80-5.40) m/uL Hgb (11.4-16.0) gm/dL Hct (34.0-46.0) % MCV (80.0-100.0) fL MCH (25.0-35.0) pg MCHC (31.0-37.0) g/dL RDW (11.5-15.5) % Plt Count (150-450) k/uL Neutrophils % % Lymphocytes % % Monocytes % % Eosinophils % % Basophils % % Neutrophils # (1.3-7.7) k/uL Lymphocytes # (1.0-4.8) k/uL Monocytes # (0-1.0) k/uL Eosinophils # (0-0.7) k/uL Basophils # (0-0.2) k/uL Anisocytosis PT (9.0-12.0) sec INR (<1.2) APTT (22.0-30.0) sec D-Dimer (<0.60) mg/L FEU Sodium (137-145) mmol/L Potassium (3.5-5.1) mmol/L Chloride (98-107) mmol/L Carbon Dioxide (22-30) mmol/L Anion Gap mmol/L BUN (7-17) mg/dL Creatinine (0.52-1.04) mg/dL Est GFR (CKD-EPI)AfAm (>60 ml/min/1.73 sqM) Est GFR (CKD-EPI)NonAf (>60 ml/min/1.73 sqM) Glucose (74-99) mg/dL Calcium (8.4-10.2) mg/dL Total Bilirubin (0.2-1.3) mg/dL AST (14-36) U/L ALT (9-52) U/L Alkaline Phosphatase (38-126) U/L Creatine Kinase (30-135) U/L Troponin I <0.012 (0.000-0.034) ng/mL NT-Pro-B Natriuret Pep 5980 pg/mL Total Protein (6.3-8.2) g/dL Albumin (3.5-5.0) g/dL Disposition Clinical Impression: CHF exacerbation Disposition: ADMITTED IP TO THIS HOSP Condition: Serious Is patient prescribed a controlled substance at d/c from ED?: No Referrals: Michelle Naqvi MD [Primary Care Provider] - 1-2 days
[2019-01-23 18:20] LABS: Anisocytosis Slight; Basophils % (A) 0 %; Eosinophils # (A) 0.2 k/uL (0-0.7); Eosinophils % (A) 2 %; HCT 42.1 % (34.0-46.0); HGB 13.5 gm/dL (11.4-16.0); Lymphocytes # (A) 2.1 k/uL (1.0-4.8); Lymphocytes % (A) 19 %; MCH 26.5 pg (25.0-35.0); MCHC 32.1 g/dL (31.0-37.0); MCV 82.5 fL (80.0-100.0); Mean Platelet Volume 6.8; Monocytes # (A) 0.6 k/uL (0-1.0); Monocytes % (A) 5 %; Neutrophils # (A) 7.7 k/uL (1.3-7.7); Neutrophils % (A) 72 %; Platelet Count 431 k/uL (150-450); RBC 5.11 m/uL (3.80-5.40); RDW 17.7 % (11.5-15.5); WBC 10.8 k/uL (3.8-10.6)
[2019-01-23 18:29] LABS: INR 0.9 (<1.2); Partial Thromboplastin Time 24.5 sec (22.0-30.0); Prothrombin Time 10.1 sec (9.0-12.0)
[2019-01-23 18:34] LABS: D-Dimer 1.47 mg/L FEU (<0.60)
[2019-01-23 18:35] LABS: ALT 28 U/L (9-52); AST 27 U/L (14-36); Alkaline Phosphatase 105 U/L (38-126); Anion Gap 11 mmol/L; Blood Urea Nitrogen 19 mg/dL (7-17); Calcium 9.9 mg/dL (8.4-10.2); Carbon Dioxide 28 mmol/L (22-30); Chloride 100 mmol/L (98-107); Creatine Kinase 26 U/L (30-135); Glucose 80 mg/dL (74-99); Potassium 4.2 mmol/L (3.5-5.1); Sodium 139 mmol/L (137-145); Total Bilirubin 0.8 mg/dL (0.2-1.3); Total Protein 6.8 g/dL (6.3-8.2)
--- NOTE | 2019-01-23 18:45 | XR ---
EXAMINATION TYPE: XR chest 2V DATE OF EXAM: 01/23/2019 COMPARISON: 09/16/2018 HISTORY: Short of breath TECHNIQUE: Frontal and lateral views of the chest are obtained. FINDINGS: There is general coarsening of interstitial markings. There is mild pulmonary congestion. There is blunting of left costophrenic angle. There are calcified granulomata in the mediastinum. Tho racic aorta is atheromatous. There is old right side rib fracture. IMPRESSION: Pulmonary fibrosis. There is probably mild congestive heart failure. Left pleural effusi on is increased compared to old exam. Old granulomatous disease. Pulmonary congestion unchanged.
[2019-01-23] MEDS ORDERED: FUROSEMIDE 10 MG/ML 4 ML VIAL IV STA (19:44)
[2019-01-23] MEDS ORDERED: NALOXONE 0.4 MG/ML 1 ML VIAL IV PRN (19:47)
[2019-01-23] MEDS ORDERED: ALBUTEROL NEBULIZED 2.5 MG/3 ML INHALATION PRN (19:51)
[2019-01-23] MEDS ORDERED: LORATADINE 10 MG TAB PO PRN (19:51)
[2019-01-23] MEDS: SYMBICORT 160-4.5 MCG INHALER INHALATION SCH (21:12)
[2019-01-23] MEDS: SODIUM CHLORIDE 0.9% 1,000 ML IV SCH (21:12)
[2019-01-23] MEDS: IPRATROPIUM-ALBUTEROL 3 ML NEB INHALATION SCH (21:12)
[2019-01-23] MEDS: ATORVASTATIN 20 MG TAB PO SCH (21:33)
[2019-01-23] MEDS: PANTOPRAZOLE 40 MG TABLET PO SCH (21:33)
[2019-01-23] MEDS: MONTELUKAST 10 MG TAB PO SCH (21:33)
[2019-01-23] MEDS: SPIRONOLACTONE 25 MG TAB PO SCH (21:34)
[2019-01-24] MEDS ORDERED: ONDANSETRON 4 MG/2 ML VIAL IVP PRN (04:22)
[2019-01-24] MEDS: ALPRAZolam 0.5 MG TAB PO PRN ×2 (04:44→17:34)
[2019-01-24] MEDS: FUROSEMIDE 10 MG/ML 2 ML VIAL IV SCH ×3 (04:44→21:14)
[2019-01-24] MEDS: LEVOTHYROXINE 100 MCG TAB PO SCH (04:45)
[2019-01-24] MEDS: IPRATROPIUM-ALBUTEROL 3 ML NEB INHALATION SCH ×4 (08:05→19:18)
[2019-01-24] MEDS: SYMBICORT 160-4.5 MCG INHALER INHALATION SCH ×2 (08:05→19:18)
[2019-01-24] MEDS: PANTOPRAZOLE 40 MG TABLET PO SCH ×2 (08:41→17:43)
[2019-01-24] MEDS: ARIPiprazole 5 MG TAB PO SCH (08:41)
[2019-01-24] MEDS: METOPROLOL SUCCINATE (ER) 25 MG TAB.ER.24H PO SCH (08:42)
[2019-01-24] MEDS: POTASSIUM CHLORIDE ER 10 MEQ TAB.ER.PRT PO SCH (08:42)
[2019-01-24 08:54] LABS: Anisocytosis Slight; Basophils # (A) 0.1 k/uL (0-0.2); Basophils % (A) 1 %; Eosinophils # (A) 0.2 k/uL (0-0.7); Eosinophils % (A) 2 %; HCT 41.4 % (34.0-46.0); HGB 13.1 gm/dL (11.4-16.0); Lymphocytes # (A) 1.9 k/uL (1.0-4.8); Lymphocytes % (A) 19 %; MCH 26.1 pg (25.0-35.0); MCHC 31.7 g/dL (31.0-37.0); MCV 82.5 fL (80.0-100.0); Mean Platelet Volume 7.4; Monocytes # (A) 0.5 k/uL (0-1.0); Monocytes % (A) 5 %; Neutrophils # (A) 7.2 k/uL (1.3-7.7); Neutrophils % (A) 73 %; Platelet Count 383 k/uL (150-450); RBC 5.02 m/uL (3.80-5.40); RDW 17.6 % (11.5-15.5); WBC 9.9 k/uL (3.8-10.6)
[2019-01-24 09:03] LABS: ALT 28 U/L (9-52); AST 26 U/L (14-36); Albumin 3.9 g/dL (3.5-5.0); Alkaline Phosphatase 96 U/L (38-126); Anion Gap 10 mmol/L; Blood Urea Nitrogen 16 mg/dL (7-17); Calcium 9.5 mg/dL (8.4-10.2); Carbon Dioxide 32 mmol/L (22-30); Chloride 99 mmol/L (98-107); Glucose 88 mg/dL (74-99); Potassium 3.9 mmol/L (3.5-5.1); Sodium 141 mmol/L (137-145); Total Bilirubin 0.9 mg/dL (0.2-1.3); Total Protein 6.6 g/dL (6.3-8.2)
[2019-01-24] MEDS: ENOXAPARIN 80 MG/0.8 ML SYRINGE SQ SCH ×2 (09:36→21:15)
[2019-01-24] MEDS ORDERED: LORATADINE 10 MG TAB PO STA (12:12)
--- NOTE | 2019-01-24 13:11 | P.HPIM ---
History of Present Illness H&P Date: 01/24/19 This is a 63-year-old female patient who presented to the hospital for complaints of increasing shortness of breath. Patient also reports she has broken rib on her right side and she is experiencing discomfort. 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 Patient was on high-dose steroids for 1 year. Additional medical history includes Hodgkin's lymphoma status post chemoradiation in 1978, history of breast cancer status post mastectomy, renal cancer status post partial nephrectomy, essential hypertension, hyperlipidemia, T compression fracture, hypothyroidism, chronic persistent asthma, sinus headache, chronic hypoxic respiratory failure and congestive heart failure. Chest x-ray completed in ER showing pulmonary fibrosis. There is probably mild congestive heart failure. Left pleural effusion is increased compared to old exam. Old granulomatous disease. Pulmonary congestion unchanged. EKG completed showing sinus tachycardia with left bundle branch block. D-dimer mildly elevated at 0.47. Discussed with Dr. Valadez and pulmonary services. At this time will order Lovenox 1 mg/kg twice a day and await for pulmonary input. At this time patient states some improvement with shortness of breath. Patient denies nausea vomiting or diarrhea. Patient denies any urinary burning or frequency. Review of Systems Please refer to HPI otherwise unremarkable Past Medical History Past Medical History: Asthma, Cancer, Heart Failure, GERD/Reflux, Hyperlipidemia , Hypertension, Sleep Apnea/CPAP/BIPAP, Thyroid Disorder Additional Past Medical History / Comment(s): BOOP. CHF, echo showed EF 50-55%, anemia, multiple thoracic compression fractures with T8 being worsewears brace, past herpes simplex type I L buttock which was tx . Other hx:1978 Hodgkins Lymphoma status post chemo and radiation chest area in 1978; L Breast CA-status post mastectomy(sx only), R renal carcinoma with partial nephrectomy, BOOP, home 02 prn, ASHKAN with CPAP use, hypothyroid, chronic back pain, recently given a back brace, osteoporosis. History of Any Multi-Drug Resistant Organisms: None Reported Past Surgical History: Adenoidectomy, Breast Surgery, Section, Hysterectomy, Orthopedic Surgery, Tonsillectomy Additional Past Surgical History / Comment(s): Spleenectomy, laparotomy, colonoscopy, EGD, bilateral 5th toe surgery for spurs, L breast mastectomy with breast reconstruction, bronchoscopy/lung bx, rt kidney partial nephrectomy, bilateral cataract removals with lens implants. Past Anesthesia/Blood Transfusion Reactions: No Reported Reaction Additional Past Anesthesia/Blood Transfusion Reaction / Comment(s): clausterphobia (mri's) Smoking Status: Former smoker - Past Family History Mother Family Medical History: Osteoarthritis (OA) Additional Family Medical History / Comment(s): glaucoma Brother(s) Additional Family Medical History / Comment(s): MS Father Family Medical History: Liver Disease, Myocardial Infarction ([place]) Additional Family Medical History / Comment(s): age 70 -mi, alcoholic Medications and Allergies Home Medications Medication Instructions Recorded Confirmed Type Budesonide-Formot 160-4.5 Mcg 2 puff INHALATION RT-BID 10/05/16 01/23/19 History [Symbicort 160-4.5 Mcg Inhaler] Levothyroxine Sodium [Synthroid] 100 mcg PO DAILY 10/05/16 01/23/19 History Metoprolol Succinate (ER) [Toprol 25 mg PO DAILY 10/05/16 01/23/19 History XL] Montelukast [Singulair] 10 mg PO HS 10/05/16 01/23/19 History Sertraline [Zoloft] 200 mg PO AC-SUPPER 10/05/16 01/23/19 History Albuterol Sulfate [Proair Hfa] 2 puff INHALATION RT-Q6H PRN 04/06/17 01/23/19 History Acyclovir 400 mg PO DAILY PRN 05/13/17 01/23/19 History Acyclovir [Zovirax] 1 applic TOPICAL 5XD PRN 05/13/17 01/23/19 History Cetirizine HCl [Zyrtec] 10 mg PO HS PRN 05/13/17 01/23/19 History Ranitidine HCl [Zantac] 150 mg PO HS PRN 05/13/17 01/23/19 History ALPRAZolam [Xanax] 0.5 mg PO Q8H PRN 06/19/18 01/23/19 History Ergocalciferol [Vitamin D2 50,000 unit PO SA 06/19/18 01/23/19 History (DRISDOL)] Omeprazole 40 mg PO BID 06/19/18 01/23/19 History Ipratropium-Albuterol Nebulize 3 ml INHALATION RT-QID ampul.neb 07/09/18 Rx [Duoneb 0.5 mg-3 mg/3 ml Soln] Potassium Chloride [K-Tab ER] 10 meq PO DAILY 09/13/18 01/23/19 History Spironolactone [Aldactone] 25 mg PO HS 09/13/18 01/23/19 History Furosemide [Lasix] 40 mg PO BID@0900,1600 #60 tab 09/19/18 01/23/19 Rx ARIPiprazole [Abilify] 5 mg PO DAILY 01/23/19 01/23/19 History Ondansetron [Zofran] 1 tab PO Q6HR PRN 01/24/19 01/24/19 History Allergies Allergy/AdvReac Type Severity Reaction Status Date / Time No Known Allergies Allergy Verified 01/23/19 20:57 Physical Exam Vitals: Vital Signs Temp Pulse Pulse Resp BP BP Pulse Ox 01/24/19 11:24 92 01/24/19 11:10 92 01/24/19 08:19 96 01/24/19 08:05 96 01/24/19 07:25 98.3 F 98 18 99/61 95 01/24/19 05:15 94 18 01/24/19 05:02 95 18 01/24/19 04:00 97.5 F L 105 H 18 107/67 98 01/24/19 03:34 18 01/23/19 23:50 98.6 F 99 18 110/71 95 01/23/19 23:46 16 01/23/19 21:54 16 01/23/19 21:21 103 H 16 01/23/19 21:13 101 H 16 96 01/23/19 21:05 97.8 F 109 H 18 109/68 99 01/23/19 20:30 95 108/74 100 01/23/19 20:00 96/59 100 01/23/19 19:30 93 100/45 99 01/23/19 16:52 97.6 F 61 18 108/70 94 L Intake and Output 01/23/19 01/24/19 01/24/19 22:59 06:59 14:59 Intake Total 576 Balance 576 Intake: Oral 476 Other 100 Other: Voiding Method Toilet Toilet Toilet # Voids 1 1 Weight 73.936 kg Head normocephalic Neck supple Lungs diminished bilaterally Heart regular rate and rhythm S1-S2, no rub or gallop Abdomen is soft nontender nondistended positive bowel sounds no hepatosplenomegaly Extremities no edema Neuro alert and orientated to 3 Results CBC & Chem 7: 01/24/19 07:19 01/24/19 07:19 Labs: Abnormal Lab Results - Last 24 Hours (Table) 01/23/19 01/23/19 01/23/19 Range/Units 17:34 17:34 17:34 WBC 10.8 H (3.8-10.6) k/uL RDW 17.7 H (11.5-15.5) % D-Dimer 1.47 H (<0.60) mg/L FEU Carbon Dioxide (22-30) mmol/L BUN 19 H (7-17) mg/dL Creatine Kinase 26 L (30-135) U/L 01/24/19 01/24/19 Range/Units 07:19 07:19 WBC (3.8-10.6) k/uL RDW 17.6 H (11.5-15.5) % D-Dimer (<0.60) mg/L FEU Carbon Dioxide 32 H (22-30) mmol/L BUN (7-17) mg/dL Creatine Kinase (30-135) U/L Thrombosis Risk Factor Assmnt - Choose All That Apply Each Risk Factor Represents 2 Points: Age 61-74 years Thrombosis Risk Factor Assessment Total Risk Factor Score: 2 Thrombosis Risk Factor Assessment Level: Low Risk Assessment and Plan Assessment: 1. Dyspnea related to acute on chronic diastolic congestive heart failure exacerbation. Last 2-D echo completed in May showing an EF of 50-55% patient started on IV Lasix at this time 2. History of bronchiolitis obliternas organizing pneumonia. Pulmonary has been consulted. 3. History of Hodgkin's lymphoma status post chemoradiation 1978 4. History of breast cancer status post cystectomy 5. History of renal cancer status post partial nephrectomy 6. History of hypertension 7. History of hyperlipidemia 8. History of T8 compression fracture 9. History of hypothyroidism 10. Chronic persistent asthma DVT prophylaxis Lovenox. GI prophylaxis Protonix D-dimer elevated at 1.49. Discussed with Dr. Naqvi and pulmonary care team. Patient started Lovenox 1 mg/kg per BID. Awaiting pulmonary input Time with Patient: Greater than 30 (Greater than 60% of the total time spent in counseling and coordination of care. I performed an examination of the patient and discussed their management with the Nurse Practitioner. I have reviewed the Nurse Practitioner's notes and agree with the documented findings and plan of care)
[2019-01-24 15:08] LABS: Appearance,Urine Clear (Clear); Bilirubin,Urine Negative (Negative); Blood,Urine Negative (Negative); Color,Urine Light Yellow; Glucose,Urine (UA) Negative (Negative); Hyaline Casts,Urine 1 /lpf (0-2); Ketones,Urine Negative (Negative); Leukocyte Esterase,Urine Trace (Negative); Mucus,Urine Rare /hpf; Nitrite,Urine Negative (Negative); Protein,Urine Negative (Negative); RBC,Urine 1 /hpf (0-5); Specific Gravity,Urine 1.006 (1.001-1.035); Squamous Epithelial Cell,Urine 1 /hpf (0-4); Urobilinogen,Urine <2.0 mg/dL (<2.0)
--- NOTE | 2019-01-24 15:41 | P.CNPUL ---
History of Present Illness Consult date: 01/24/19 Reason for consult: dyspnea History of present illness: A 63-year-old female patient, known to our practice, coming in for worsening shortness of breath. This patient is known to have COPD, previous history of a biopsy proven treated systemic steroids for many years with good results. The patient also has a remote history of Hodgkin's lymphoma treated by chemoradiation therapy back in 1978 and the patient has some mediastinal lymph nodes calcification as a result. She also has a chronic left-sided pleural effusion. Her other comorbidities including renal cancer and she is post partial nephrectomy and she has chronic persistent bronchial asthma, chronic hypoxic respiratory failure in addition to CHF with diastolic dysfunction and hypothyroidism hyperlipidemia and hypertension. The patient is also post splenectomy. This patient is coming in for worsening shortness of breath. She has been experiencing increased dyspnea, cough, chest congestion and wheezing and this has been gradually getting worse over this past few days. The patient has no fever or chills per no significant leukocytosis. Chest x-ray showed cardiomegaly and some mild pulmonary vascular congestion. There is also a left lower lobe pleural effusion which is somewhat increased in size. The patient was started on IV Lasix. She is on 20 mg of IV Lasix every 8 hours. No significant swelling in lower extremities. No altered mentation. No diarrhea. No nausea or vomiting. She is having some increased urine output with diuresis. Her last echocardiogram was done in 2019. The patient a preserved LV function with some diastolic dysfunction. No significant valvular abnormalities. The BNP level was elevated in the 5000 range. The patient had 3 sets of cardiac enzymes are negative. Review of Systems Constitutional: Reports fatigue, Reports lethargy, Reports weight gain (The patient gained weight with steroid use and subsequently she has been losing weight for now.), Reports weight loss Eyes: denies as per HPI, denies blurred vision, denies bulging eye, denies decreased vision, denies diplopia, denies discharge, denies dry eye, denies irritation, denies itching, denies pain, denies photophobia, denies loss of peripheral vision, denies loss of vision, denies tunnel vision/blind spots Ears: deny: decreased hearing, ear discharge, earache, tinnitus Ears, nose, mouth and throat: Denies headache, Denies sore throat Breasts: absent: as per HPI, change in shape, gynecomastia, masses, nipple discharge, pain, skin changes, swelling Cardiovascular: Reports decreased exercise tolerance, Reports dyspnea on exertion, Reports shortness of breath Respiratory: Reports cough, Reports cough with sputum, Reports dyspnea, Reports wheezing Gastrointestinal: Denies abdominal pain, Denies diarrhea, Denies nausea, Denies vomiting Genitourinary: Reports as per HPI Menstruation: Reports as per HPI Musculoskeletal: Reports as per HPI Musculoskeletal: absent: ankle pain, ankle stiffness, ankle swelling, as per HPI , elbow pain, elbow stiffness, elbow swelling, foot pain, foot stiffness, foot swelling, hand pain, hand stiffness, hand swelling, hip pain, hip stiffness, hip swelling, knee pain, knee stiffness, knee swelling, shoulder pain, shoulder stiffness, shoulder swelling, wrist pain, wrist stiffness, wrist swelling Integumentary: Denies pruritus, Denies rash Neurological: Reports as per HPI Psychiatric: Reports as per HPI Endocrine: Reports as per HPI Hematologic/Lymphatic: Reports as per HPI Allergic/Immunologic: Reports as per HPI Past Medical History Past Medical History: Asthma, Cancer, Heart Failure, GERD/Reflux, Hyperlipidemia , Hypertension, Sleep Apnea/CPAP/BIPAP, Thyroid Disorder Additional Past Medical History / Comment(s): Chronic bronchial asthma, history of pulmonary BOOP treated with systemic steroids. CHF, echo showed EF 50-55%, anemia, multiple thoracic compression fractures with T8 being worsewears brace, past herpes simplex type I L buttock which was tx . Other hx:1978 Hodgkins Lymphoma status post chemo and radiation chest area in 1978; L Breast CA-status post mastectomy(sx only), R renal carcinoma with partial nephrectomy, BOOP, home 02 prn, ASHKAN with CPAP use, hypothyroid, chronic back pain, recently given a back brace, osteoporosis. History of Any Multi-Drug Resistant Organisms: None Reported Past Surgical History: Adenoidectomy, Breast Surgery, Section, Hysterectomy, Orthopedic Surgery, Tonsillectomy Additional Past Surgical History / Comment(s): Spleenectomy, laparotomy, colonoscopy, EGD, bilateral 5th toe surgery for spurs, L breast mastectomy with breast reconstruction, bronchoscopy/lung bx, rt kidney partial nephrectomy, bilateral cataract removals with lens implants. Past Anesthesia/Blood Transfusion Reactions: No Reported Reaction Additional Past Anesthesia/Blood Transfusion Reaction / Comment(s): clausterphobia (mri's) Smoking Status: Former smoker - Past Family History Mother Family Medical History: Osteoarthritis (OA) Additional Family Medical History / Comment(s): glaucoma Brother(s) Additional Family Medical History / Comment(s): MS Father Family Medical History: Liver Disease, Myocardial Infarction ([place]) Additional Family Medical History / Comment(s): age 70 -mi, alcoholic Medications and Allergies Home Medications Medication Instructions Recorded Confirmed Type Budesonide-Formot 160-4.5 Mcg 2 puff INHALATION RT-BID 10/05/16 01/23/19 History [Symbicort 160-4.5 Mcg Inhaler] Levothyroxine Sodium [Synthroid] 100 mcg PO DAILY 10/05/16 01/23/19 History Metoprolol Succinate (ER) [Toprol 25 mg PO DAILY 10/05/16 01/23/19 History XL] Montelukast [Singulair] 10 mg PO HS 10/05/16 01/23/19 History Sertraline [Zoloft] 200 mg PO AC-SUPPER 10/05/16 01/23/19 History Albuterol Sulfate [Proair Hfa] 2 puff INHALATION RT-Q6H PRN 04/06/17 01/23/19 History Acyclovir 400 mg PO DAILY PRN 05/13/17 01/23/19 History Acyclovir [Zovirax] 1 applic TOPICAL 5XD PRN 05/13/17 01/23/19 History Cetirizine HCl [Zyrtec] 10 mg PO HS PRN 05/13/17 01/23/19 History Ranitidine HCl [Zantac] 150 mg PO HS PRN 05/13/17 01/23/19 History ALPRAZolam [Xanax] 0.5 mg PO Q8H PRN 06/19/18 01/23/19 History Ergocalciferol [Vitamin D2 50,000 unit PO SA 06/19/18 01/23/19 History (DRISDOL)] Omeprazole 40 mg PO BID 06/19/18 01/23/19 History Ipratropium-Albuterol Nebulize 3 ml INHALATION RT-QID ampul.neb 07/09/18 Rx [Duoneb 0.5 mg-3 mg/3 ml Soln] Potassium Chloride [K-Tab ER] 10 meq PO DAILY 09/13/18 01/23/19 History Spironolactone [Aldactone] 25 mg PO HS 09/13/18 01/23/19 History Furosemide [Lasix] 40 mg PO BID@0900,1600 #60 tab 09/19/18 01/23/19 Rx ARIPiprazole [Abilify] 5 mg PO DAILY 01/23/19 01/23/19 History Ondansetron [Zofran] 1 tab PO Q6HR PRN 01/24/19 01/24/19 History Allergies Allergy/AdvReac Type Severity Reaction Status Date / Time No Known Allergies Allergy Verified 01/23/19 20:57 Physical Exam Vitals: Vital Signs Temp Pulse Pulse Resp BP BP Pulse Ox 01/24/19 15:22 98.1 F 99 20 101/67 98 01/24/19 15:18 98 01/24/19 15:04 98 12 100 01/24/19 11:24 92 01/24/19 11:10 92 01/24/19 08:19 96 01/24/19 08:05 96 01/24/19 07:25 98.3 F 98 18 99/61 95 01/24/19 05:15 94 18 01/24/19 05:02 95 18 01/24/19 04:00 97.5 F L 105 H 18 107/67 98 01/24/19 03:34 18 01/23/19 23:50 98.6 F 99 18 110/71 95 01/23/19 23:46 16 01/23/19 21:54 16 01/23/19 21:21 103 H 16 01/23/19 21:13 101 H 16 96 01/23/19 21:05 97.8 F 109 H 18 109/68 99 01/23/19 20:30 95 108/74 100 01/23/19 20:00 96/59 100 01/23/19 19:30 93 100/45 99 01/23/19 16:52 97.6 F 61 18 108/70 94 L Intake and Output 01/24/19 01/24/19 01/24/19 06:59 14:59 22:59 Intake Total 576 Output Total 500 Balance 76 Intake: Oral 476 Other 100 Output: Urine 500 Other: Voiding Method Toilet Toilet # Voids 1 Appearance, comfortable likely distress. The patient is some old cushingoid features, improved while being off steroids. Head exam was generally normal. There was no scleral icterus or corneal arcus. Mucous membranes were moist. Neck was supple and without jugular venous distension, thyromegaly, or carotid bruits. Carotids were easily palpable bilaterally. There was no adenopathy. Lungs sounds are diminished bilaterally and the patient has scattered expiratory wheezes throughout the lung doyle and prolongation of expiratory phase of breathing. There is diminished breath on the left lung base. There is also crackles in the mid and lower lung doyle bilaterally. Cardiac exam revealed the PMI to be normally situated and sized. The rhythm was regular and no extrasystoles were noted during several minutes of auscultation. The first and second heart sounds were normal and physiologic splitting of the second heart sound was noted. There were no murmurs, rubs, clicks, or gallops. Abdominal exam revealed normal bowel sounds. The abdomen was soft, non-tender, and without masses, organomegaly, or appreciable enlargement of the abdominal aorta. Examination of the extremities revealed easily palpable radial, femoral and pedal pulses. There was no cyanosis, clubbing or edema. Examination of the skin revealed no evidence of significant rashes, suspicious appearing nevi or other concerning lesions. Neurologically awake and alert and there is no focal neurological deficit. Results - Laboratory Findings CBC and BMP: 01/24/19 07:01/24/19 07:19 PT/INR, D-dimer PT 10.1 sec (9.0-12.0) 01/23/19 17:34 INR 0.9 (<1.2) 01/23/19 17:34 D-Dimer 1.47 mg/L FEU (<0.60) H 01/23/19 17:34 Abnormal lab findings: Abnormal Labs 01/23/19 01/23/19 01/23/19 14:50 17:34 17:34 WBC 10.8 H RDW 17.7 H D-Dimer Carbon Dioxide BUN 19 H Creatine Kinase 26 L Ur Leukocyte Esterase Trace H Urine Mucus Rare H 01/23/19 01/24/19 01/24/19 17:34 07:19 07:19 WBC RDW 17.6 H D-Dimer 1.47 H Carbon Dioxide 32 H BUN Creatine Kinase Ur Leukocyte Esterase Urine Mucus - Diagnostic Findings Chest x-ray: image reviewed Assessment and Plan Plan: Assessment 1 acute dyspnea currently under investigation. The patient has evidence of asthma/COPD exacerbation in addition to CHF with increased pulmonary vascular marking and signs of congestion heart failure and fluid overload. I think her shortness of breath is multifactorial. It could be a left lower lobe pneumonia , and the patient has a chronic left-sided pleural effusion in the left lung base with probable some interval worsening of the site of the pleural effusion based on the chest x-ray findings. As such, the patient shortness of breath is multifactorial. Echocardiogram was not 3 months ago the workers compensation paralegal office. The patient is currently on diuretics 2 history of pulmonary bronchiolitis obliterans with organizing pneumonia, currently off systemic steroids 3 history of splenectomy which obviously puts arthritis Having infection/sepsis 4 history of chronic steroid use with cushingoid features which are recovering and the patient was taken off steroids 5 history of Hodgkin's lymphoma status post chemo radiation therapy back in 1978 6 history of obstructive sleep apnea 7 history of renal cancer status post partial nephrectomy 8 hypertension 9 hyperlipidemia 10 compression fracture of the T8 spine 11 hypothyroidism 12 chronic back pain 13 mediastinal lymph nodes calcification related to previous Hodgkin's disease and radiation therapy Plan Continue IV diuretics. The patient on Lasix 20 mg every 8 hours. Will add IV Solu Medrol 60 mg every 6 hours over the next 24 hours. Would add empiric antibiotic coverage with Levaquin 750 mg every 24 hours. Obtain records and the previous echocardiogram. Continue bronchodilators [id number]. Renal function. Monitor electrolytes. Continue Aldactone. We'll continue to follow and make further recommendations based on her progress.
[2019-01-24] MEDS ORDERED: LEVOFLOXACIN 750MG-D5W PMX 750 MG in DEXTROSE/WATER 1 150ML.BAG IVPB SCH (16:00)
[2019-01-24] MEDS: SERTRALINE 100 MG TAB PO SCH (17:27)
[2019-01-24] MEDS: methylPREDNISolone SOD SUCCI 125 MG/2 ML VIAL IV SCH (17:27)
[2019-01-24] MEDS: ACETAMINOPHEN TAB 325 MG TAB PO PRN (17:33)
[2019-01-24] MEDS: MONTELUKAST 10 MG TAB PO SCH (21:14)
[2019-01-24] MEDS: SPIRONOLACTONE 25 MG TAB PO SCH ×2 (21:15→21:24)
[2019-01-24] MEDS: ATORVASTATIN 20 MG TAB PO SCH (21:15)
[2019-01-24] MEDS: SODIUM CHLORIDE 0.9% 1,000 ML IV SCH (21:24)
[2019-01-25] MEDS: methylPREDNISolone SOD SUCCI 125 MG/2 ML VIAL IV SCH ×4 (00:42→17:10)
[2019-01-25] MEDS: LEVOTHYROXINE 100 MCG TAB PO SCH (06:25)
[2019-01-25 06:31] LABS: Anisocytosis Slight; Basophils % (A) 0 %; Eosinophils # (A) 0.1 k/uL (0-0.7); Eosinophils % (A) 1 %; HCT 38.3 % (34.0-46.0); Lymphocytes # (A) 0.7 k/uL (1.0-4.8); Lymphocytes % (A) 7 %; MCH 25.9 pg (25.0-35.0); MCHC 31.2 g/dL (31.0-37.0); MCV 82.8 fL (80.0-100.0); Mean Platelet Volume 6.4; Monocytes # (A) 0.2 k/uL (0-1.0); Monocytes % (A) 2 %; Neutrophils # (A) 8.9 k/uL (1.3-7.7); Neutrophils % (A) 90 %; Platelet Count 392 k/uL (150-450); RBC 4.63 m/uL (3.80-5.40); RDW 17.7 % (11.5-15.5); WBC 9.9 k/uL (3.8-10.6)
[2019-01-25 06:53] LABS: ALT 30 U/L (9-52); AST 20 U/L (14-36); Albumin 3.5 g/dL (3.5-5.0); Alkaline Phosphatase 86 U/L (38-126); Anion Gap 8 mmol/L; Blood Urea Nitrogen 21 mg/dL (7-17); Calcium 9.7 mg/dL (8.4-10.2); Carbon Dioxide 30 mmol/L (22-30); Chloride 100 mmol/L (98-107); Glucose 136 mg/dL (74-99); Potassium 4.4 mmol/L (3.5-5.1); Sodium 138 mmol/L (137-145); Total Bilirubin 0.8 mg/dL (0.2-1.3); Total Protein 6.2 g/dL (6.3-8.2)
[2019-01-25] MEDS: IPRATROPIUM-ALBUTEROL 3 ML NEB INHALATION SCH ×4 (08:34→19:42)
[2019-01-25] MEDS: SYMBICORT 160-4.5 MCG INHALER INHALATION SCH ×2 (08:35→19:42)
--- NOTE | 2019-01-25 10:19 | P.PN ---
Subjective Progress Note Date: 01/25/19 This is a 63-year-old female patient who presented to the hospital for complaints of increasing shortness of breath. Patient also reports she has broken rib on her right side and she is experiencing discomfort. 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 Patient was on high-dose steroids for 1 year. Additional medical history includes Hodgkin's lymphoma status post chemoradiation in 1978, history of breast cancer status post mastectomy, renal cancer status post partial nephrectomy, essential hypertension, hyperlipidemia, T compression fracture, hypothyroidism, chronic persistent asthma, sinus headache, chronic hypoxic respiratory failure and congestive heart failure. Chest x-ray completed in ER showing pulmonary fibrosis. There is probably mild congestive heart failure. Left pleural effusion is increased compared to old exam. Old granulomatous disease. Pulmonary congestion unchanged. EKG completed showing sinus tachycardia with left bundle branch block. D-dimer mildly elevated at 0.47. Discussed with Dr. Valadez and pulmonary services. At this time will order Lovenox 1 mg/kg twice a day and await for pulmonary input. At this time patient states some improvement with shortness of breath. Patient denies nausea vomiting or diarrhea. Patient denies any urinary burning or frequency. On 01/25/2019 patient remains alert and oriented 3. Patient feels slightly improved from yesterday regards to shortness breath. Patient recent IV Lasix IV steroids and antibiotics. CTA has been ordered per cardiology. Patient denies chest pain. Patient does complain of some SOB with activity. Denies nausea vomitting or diarrhea. Objective - Vital Signs Vital signs: Vital Signs Temp 97.7 F 01/25/19 07:40 Pulse 92 01/25/19 08:46 Resp 18 01/25/19 08:00 BP 98/61 01/25/19 07:40 Pulse Ox 94 L 01/25/19 07:40 Intake & Output 01/24/19 01/25/19 01/25/19 18:59 06:59 18:59 Intake Total 1376 Output Total 500 500 Balance 876 -500 Weight 73.936 kg 76.5 kg Intake: Oral 1276 Other 100 Output: Urine 500 500 Other: Voiding Method Toilet Toilet Toilet # Voids 1 - Exam Head normocephalic Neck supple Lungs diminished bilaterally Heart regular rate and rhythm S1-S2, no rub or gallop Abdomen is soft nontender nondistended positive bowel sounds no hepatosplenomegaly Extremities no edema Neuro alert and orientated to 3 - Labs CBC & Chem 7: 01/25/19 06:13 01/25/19 06:13 Labs: Abnormal Lab Results - Last 24 Hours (Table) 01/23/19 01/25/19 01/25/19 Range/Units 14:50 06:13 06:13 RDW 17.7 H (11.5-15.5) % Neutrophils # 8.9 H (1.3-7.7) k/uL Lymphocytes # 0.7 L (1.0-4.8) k/uL BUN 21 H (7-17) mg/dL Glucose 136 H (74-99) mg/dL Total Protein 6.2 L (6.3-8.2) g/dL Ur Leukocyte Esterase Trace H (Negative) Urine Mucus Rare H (None) /hpf Microbiology - Last 24 Hours (Table) 01/23/19 17:34 Blood Culture - Preliminary Blood No Growth after 24 hours Assessment and Plan Assessment: 1. Dyspnea related to acute on chronic diastolic congestive heart failure exacerbation. Last 2-D echo completed in May showing an EF of 50-55% patient started on IV Lasix at this time. per Pulmonary services continue IV diuretics , Solu-Medrol and Levaquin antibiotic. CTA has been ordered per cardiology per cadiology 2. History of bronchiolitis obliternas organizing pneumonia. Pulmonary has been consulted. 3. History of Hodgkin's lymphoma status post chemoradiation 1978 4. History of breast cancer status post cystectomy 5. History of renal cancer status post partial nephrectomy 6. History of hypertension 7. History of hyperlipidemia 8. History of T8 compression fracture 9. History of hypothyroidism 10. Chronic persistent asthma DVT prophylaxis Lovenox. GI prophylaxis Protonix D-dimer elevated at 1.49. Discussed with Dr. Naqvi and pulmonary care team. Patient started Lovenox 1 mg/kg per BID. CTA has been ordered per cardiology
[2019-01-25] MEDS: FUROSEMIDE 10 MG/ML 2 ML VIAL IV SCH ×3 (10:21→21:48)
[2019-01-25] MEDS: ARIPiprazole 5 MG TAB PO SCH (10:21)
[2019-01-25] MEDS: ENOXAPARIN 80 MG/0.8 ML SYRINGE SQ SCH (10:21)
[2019-01-25] MEDS: POTASSIUM CHLORIDE ER 10 MEQ TAB.ER.PRT PO SCH (10:21)
[2019-01-25] MEDS: PANTOPRAZOLE 40 MG TABLET PO SCH ×2 (10:21→16:21)
--- NOTE | 2019-01-25 11:37 | CT ---
EXAMINATION TYPE: CT angio chest DATE OF EXAM: 01/25/2019 COMPARISON: CT chest 10/31/2018 and chest x-ray 01/23/2019 HISTORY: Elevated d-dimer, shortness of breath, abnormal chest x-ray CT DLP: 236.8 mGycm Automated exposure control for dose reduction was used. CONTRAST: CTA scan of the thorax is performed with IV Contrast, patient injected with 100 mL of Isovue 370, pul monary embolism protocol. MIP images are created and reviewed. 3D reconstructed images are created on an independent workstation and reviewed. FINDINGS: LUNGS: The lungs are remarkable for some thickened parenchymal bands at the lung bases, interlobular septal pleural thickening. There is a chronic left pleural effusion and associated atelectasis. Calci fications are present in the lingula, postop changes are present posterior left lung base as on prior . The tracheobronchial tree is patent. AORTA: No additional significant abnormality is seen. MEDIASTINUM: There is satisfactory enhancement of the pulmonary artery and its branches, there is no CT evidence for pulmonary embolism. There are no greater than 1 cm hilar or mediastinal lymph nodes. No pericardial effusion is seen. Calcified mediastinal and right hilar lymph nodes are present. OTHER: T8 compression fracture with retropulsion causing spinal stenosis is present. Superior endpla te fracture present at T11.1 left breast prosthesis is again noted. Postop changes are noted in the upper abdomen, calcification present within the liver, spleen is some what diminutive IMPRESSION: NO EVIDENT PULMONARY EMBOLISM. OLD GRANULOMATOUS DISEASE. POSTOP CHANGES, CHRONIC LEFT PLEURAL EFFUSI ON. Compression fractures in the thoracic spine as described, thoracic MRI may be of benefit.
[2019-01-25] MEDS: METOPROLOL SUCCINATE (ER) 25 MG TAB.ER.24H PO SCH (11:47)
--- NOTE | 2019-01-25 12:27 | P.CRDCN ---
History of Present Illness History of present illness: This is a pleasant 63-year-old female past medical history significant for chronic systolic heart failure, pulmonary hypertension, valvular heart disease, hypertension, dyslipidemia, COPD, Hodgkins lymphoma in 1978 s/p radiaiton therapy and chronic left sided pleural effusion. She underwent cardiac catheterization in 2012 reveals normal coronary arteries. She follows in the office with Dr. Jasso. We have been asked to see her in consultation for symptoms suggestive of heart failure. She states she has a baseline level of shortness of breath however over the previous few months her shortness of breath has become much more evident. Specifically over the previous 3 days she states that any sort of mild exertion she is extremely short of breath even a simple as putting on apparent pants. She also describes having a very nonspecific vague achy sensation in the right anterior chest wall with radiation sometimes to the right upper back. This pain is exacerbated by movement or reaching with her right arm and is made better when she keeps her right arm at her side. She denies any left precordial chest pain. This pain in the right chest is not evident with exertion and is not associated with shortness of breath. She denies dizziness, palpitations, PND or orthopnea. She states her breathing is only good when she is sitting there playing completely flat and doing nothing. EKG reveals left bundle branch block. Insistent with previous EKGs. Chest x-ray reveals evidence of pulmonary fibrosis, mild congestive heart failure, left pleural effusion increased in size compared to previous exam, pulmonary congestion is unchanged from previous and there is evidence of old granulomatous disease. Laboratory data reviewed, WBC 9.9, hemoglobin 12, platelets 392, d-dimer 1.47, sodium 138, potassium 4.4, creatinine 0.73, cardiac enzymes negative 3, NT proBNP 5980. Current cardiac medications include Lasix 40 mg twice a day, Toprol 25 mg daily and Aldactone 25 mg daily. Most recent echocardiogram obtained in the office September 2018 reveals impaired LV systolic function with ejection fraction 45%, grade 2 diastolic dysfunction, mild to moderate aortic regurgitation and moderate aortic stenosis with a mean gradient across the valve of 13 mmHg, moderate tricuspid regurgitation, severe pulmonary hypertension with a PSP of 75 mmHg, moderate pulmonic regurgitation and mild to moderate mitral regurgitation. At the time of my exam: CONSTITUTIONAL: Denies fever. Denies chills. EYES: Denies blurred vision. Denies vision changes. Denies eye pain. EARS, NOSE, MOUTH & THROAT: Denies headache. Denies sore throat. Denies ear pain. CARDIOVASCULAR: Denies chest pain. Complains of shortness of breath. Denies orthopnea. Denies PND. Denies palpitations. RESPIRATORY: Denies cough. GASTROINTESTINAL: Denies abdominal pain. Denies diarrhea. Denies constipation. Denies nausea. Denies vomiting. MUSCULOSKELETAL: Denies myalgias. INTEGUMENTARY: Denies pruitis. Denies rash. NEUROLOGIC: Denies numbness. Denies tingling. Denies weakness. PSYCHIATRIC: Denies anxiety. Denies depression. ENDOCRINE: Denies fatigue. Denies weight change. Denies polydipsia. Denies polyurina. GENITOURINARY: Denies burning, hematuria or urgency with micturation. HEMATOLOGIC: Denies history of anemia. Denies bleeding. Blood pressure 98/61 heart rate 90 afebrile maintaining oxygen saturation on room air GENERAL: This is a 63-year-old female in no apparent distress at the time of my examination. HEENT: Head is atraumatic, normocephalic. Pupils are equal, round. Sclerae anicteric. Conjunctivae are clear. Mucous membranes of the mouth are moist. Neck is supple. There is no jugular venous distention. No carotid bruit is heard. LUNGS: Bibasilar rales, greater on the left than right. No wheezes or rhonchi. No chest wall tenderness is noted on palpation or with deep breathing. Diminished bilaterally. HEART: Regular rate and rhythm with systolic ejection murmur at the base, no rubs or gallops. S1 and S2 heard. ABDOMEN: Soft, nontender. Bowel sounds are heard. No organomegaly noted. EXTREMITIES: Trace bilateral lower extremity edema and no calf tenderness noted. VASCULAR: Radial and dorsalis pedis pulses palpated, no evidence of clubbing. NEUROLOGIC: Patient is awake, alert and oriented x3. ASSESSMENT Acute on chronic systolic and diastolic heart failure Severe pulmonary hypertension COPD Valvular heart disease Chest pain, atypical for angina with musculoskeletal features. An acute coronary event has been ruled out. Hypertension Dyslipidemia Nonischemic cardiomyopathy History of bronchiolitis obliterans with organizing pneumonia PLAN An acute coronary event has been ruled out. Decrease Lasix to 20 mg IV twice a day due to hypotension for ongoing diuresis. Follow kidney function and electrolytes daily. Document accurate intake and output along with daily weights. Obtain CT angio chest to assess for PE with elevated d-dimer, shortness of breath and tachycardia on admission. Further recommendations to follow based on clinical course. Thank you kindly for this consultation. Nurse Practitioner note has been reviewed, I agree with a documented findings and plan of care. Patient was seen and examined. Past Medical History Past Medical History: Asthma, Cancer, Heart Failure, GERD/Reflux, Hyperlipidemia , Hypertension, Sleep Apnea/CPAP/BIPAP, Thyroid Disorder Additional Past Medical History / Comment(s): Chronic bronchial asthma, history of pulmonary BOOP treated with systemic steroids. CHF, echo showed EF 50-55%, anemia, multiple thoracic compression fractures with T8 being worsewears brace, past herpes simplex type I L buttock which was tx . Other hx:1978 Hodgkins Lymphoma status post chemo and radiation chest area in 1978; L Breast CA-status post mastectomy(sx only), R renal carcinoma with partial nephrectomy, BOOP, home 02 prn, ASHKAN with CPAP use, hypothyroid, chronic back pain, recently given a back brace, osteoporosis. History of Any Multi-Drug Resistant Organisms: None Reported Past Surgical History: Adenoidectomy, Breast Surgery, Section, Hysterectomy, Orthopedic Surgery, Tonsillectomy Additional Past Surgical History / Comment(s): Spleenectomy, laparotomy, colonoscopy, EGD, bilateral 5th toe surgery for spurs, L breast mastectomy with breast reconstruction, bronchoscopy/lung bx, rt kidney partial nephrectomy, bilateral cataract removals with lens implants. Past Anesthesia/Blood Transfusion Reactions: No Reported Reaction Additional Past Anesthesia/Blood Transfusion Reaction / Comment(s): clausterphobia (mri's) Smoking Status: Former smoker - Past Family History Mother Family Medical History: Osteoarthritis (OA) Additional Family Medical History / Comment(s): glaucoma Brother(s) Additional Family Medical History / Comment(s): MS Father Family Medical History: Liver Disease, Myocardial Infarction ([place]) Additional Family Medical History / Comment(s): age 70 -mi, alcoholic Medications and Allergies Home Medications Medication Instructions Recorded Confirmed Type Budesonide-Formot 160-4.5 Mcg 2 puff INHALATION RT-BID 10/05/16 01/23/19 History [Symbicort 160-4.5 Mcg Inhaler] Levothyroxine Sodium [Synthroid] 100 mcg PO DAILY 10/05/16 01/23/19 History Metoprolol Succinate (ER) [Toprol 25 mg PO DAILY 10/05/16 01/23/19 History XL] Montelukast [Singulair] 10 mg PO HS 10/05/16 01/23/19 History Sertraline [Zoloft] 200 mg PO AC-SUPPER 10/05/16 01/23/19 History Albuterol Sulfate [Proair Hfa] 2 puff INHALATION RT-Q6H PRN 04/06/17 01/23/19 History Acyclovir 400 mg PO DAILY PRN 05/13/17 01/23/19 History Acyclovir [Zovirax] 1 applic TOPICAL 5XD PRN 05/13/17 01/23/19 History Cetirizine HCl [Zyrtec] 10 mg PO HS PRN 05/13/17 01/23/19 History Ranitidine HCl [Zantac] 150 mg PO HS PRN 05/13/17 01/23/19 History ALPRAZolam [Xanax] 0.5 mg PO Q8H PRN 06/19/18 01/23/19 History Ergocalciferol [Vitamin D2 50,000 unit PO SA 06/19/18 01/23/19 History (DRISDOL)] Omeprazole 40 mg PO BID 06/19/18 01/23/19 History Ipratropium-Albuterol Nebulize 3 ml INHALATION RT-QID ampul.neb 07/09/18 Rx [Duoneb 0.5 mg-3 mg/3 ml Soln] Potassium Chloride [K-Tab ER] 10 meq PO DAILY 09/13/18 01/23/19 History Spironolactone [Aldactone] 25 mg PO HS 09/13/18 01/23/19 History Furosemide [Lasix] 40 mg PO BID@0900,1600 #60 tab 09/19/18 01/23/19 Rx ARIPiprazole [Abilify] 5 mg PO DAILY 01/23/19 01/23/19 History Ondansetron [Zofran] 1 tab PO Q6HR PRN 01/24/19 01/24/19 History Allergies Allergy/AdvReac Type Severity Reaction Status Date / Time No Known Allergies Allergy Verified 01/23/19 20:57 Physical Exam Vitals: Vital Signs Temp Pulse Pulse Resp BP Pulse Ox 01/25/19 04:00 97.9 F 97 14 90/57 96 01/25/19 00:00 98.2 F 91 15 83/51 97 01/24/19 20:00 91 15 01/24/19 19:29 104 H 01/24/19 19:23 97.7 F 101 H 15 94/63 96 01/24/19 19:18 102 H 01/24/19 15:22 98.1 F 99 20 101/67 98 01/24/19 15:18 98 01/24/19 15:04 98 12 100 01/24/19 11:24 92 01/24/19 11:10 92 01/24/19 08:19 96 Intake and Output 01/24/19 01/25/19 01/25/19 22:59 06:59 14:59 Intake Total 800 Output Total 500 Balance 300 Intake: Oral 800 Output: Urine 500 Other: Voiding Method Toilet Toilet # Voids 1 Weight 76.5 kg Results 01/25/19 06:13 01/25/19 06:13 Cardiac Enzymes 01/24/19 01/24/19 01/25/19 Range/Units 07:19 07:19 06:13 AST 26 20 (14-36) U/L Troponin I 0.013 (0.000-0.034) ng/mL CBC 01/24/19 01/25/19 Range/Units 07:19 06:13 WBC 9.9 9.9 (3.8-10.6) k/uL RBC 5.02 4.63 (3.80-5.40) m/uL Hgb 13.1 12.0 (11.4-16.0) gm/dL Hct 41.4 38.3 (34.0-46.0) % Plt Count 383 392 (150-450) k/uL Comprehensive Metabolic Panel 01/24/19 01/25/19 Range/Units 07:19 06:13 Sodium 141 138 (137-145) mmol/L Potassium 3.9 4.4 (3.5-5.1) mmol/L Chloride 99 100 (98-107) mmol/L Carbon Dioxide 32 H 30 (22-30) mmol/L BUN 16 21 H (7-17) mg/dL Creatinine 0.79 0.73 (0.52-1.04) mg/dL Glucose 88 136 H (74-99) mg/dL Calcium 9.5 9.7 (8.4-10.2) mg/dL AST 26 20 (14-36) U/L ALT 28 30 (9-52) U/L Alkaline Phosphatase 96 86 (38-126) U/L Total Protein 6.6 6.2 L (6.3-8.2) g/dL Albumin 3.9 3.5 (3.5-5.0) g/dL Current Medications Generic Name Dose Route Start Last Admin Trade Name Freq PRN Reason Stop Dose Admin Acetaminophen 650 mg 01/23/19 19:47 01/24/19 17:33 Tylenol Tab PO 650 mg Q6HR PRN Administration Mild Pain or Fever > 100.5 Albuterol Sulfate 2.5 mg 01/23/19 19:51 01/24/19 05:01 Ventolin Nebulized INHALATION 2.5 mg RT-Q6H PRN Administration Shortness Of Breath Albuterol/Ipratropium 3 ml 01/23/19 20:00 01/24/19 19:18 Duoneb 0.5 Mg-3 Mg/3 Ml Soln INHALATION 3 ml RT-QID ERICA Administration Alprazolam 0.5 mg 01/23/19 19:51 01/24/19 17:34 Xanax PO 0.5 mg Q8H PRN Administration Anxiety Aripiprazole 5 mg 01/24/19 09:00 01/24/19 08:41 Abilify PO 5 mg DAILY ERICA Administration Atorvastatin Calcium 20 mg 01/23/19 21:00 01/24/19 21:15 Lipitor PO 20 mg HS ERICA Administration Budesonide/Formoterol Fumarate 2 puff 01/23/19 20:00 01/24/19 19:18 Symbicort 160-4.5 Mcg Inhaler INHALATION 2 puff RT-BID ERICA Administration Enoxaparin Sodium 70 mg 01/24/19 09:00 01/24/19 21:15 Lovenox SQ 70 mg Q12HR ERICA Administration Ergocalciferol 50,000 unit 01/27/19 12:00 Vitamin D2 PO Sa@1200 ERICA Furosemide 20 mg 01/24/19 04:00 01/24/19 21:14 Lasix IV 20 mg Q8H ERICA Administration Sodium Chloride 1,000 mls @ 20 mls/hr 01/23/19 20:00 01/24/19 21:24 Saline 0.9% IV Not Given .Q24H ERICA Levofloxacin 750 mg/ IV 150 mls @ 100 mls/hr 01/24/19 16:00 01/24/19 17:26 Solution IVPB 100 mls/hr Q24H ERICA Administration Levothyroxine Sodium 100 mcg 01/24/19 06:30 01/25/19 06:25 Synthroid PO 100 mcg 0630 ERICA Administration Loratadine 10 mg 01/23/19 19:51 Claritin PO HS PRN Allergy Symptoms Methylprednisolone Sodium Succinate 60 mg 01/24/19 18:00 01/25/19 06:25 Solu-Medrol IV 60 mg Q6HR ERICA Administration Metoprolol Succinate 25 mg 01/24/19 09:00 01/24/19 08:42 Toprol Xl PO 25 mg DAILY ERICA Administration Montelukast Sodium 10 mg 01/23/19 21:00 01/24/19 21:14 Singulair PO 10 mg HS ERICA Administration Naloxone HCl 0.2 mg 01/23/19 19:47 Narcan IV Q2M PRN Opioid Reversal Ondansetron HCl 4 mg 01/24/19 04:22 01/24/19 04:45 Zofran IVP 4 mg Q6HR PRN Administration Nausea And Vomiting Pantoprazole Sodium 40 mg 01/23/19 21:00 01/24/19 17:43 Protonix PO 40 mg AC-BID ERICA Administration Potassium Chloride 10 meq 01/24/19 09:00 01/24/19 08:42 K-Dur 10 PO 10 meq DAILY ERICA Administration Sertraline HCl 200 mg 01/24/19 17:30 01/24/19 17:27 Zoloft PO 200 mg AC-SUPPER ERICA Administration Spironolactone 25 mg 01/23/19 21:00 01/24/19 21:24 Aldactone PO Not Given HS ERICA Intake and Output 01/24/19 01/25/19 01/25/19 22:59 06:59 14:59 Intake Total 800 Output Total 500 Balance 300 Intake: Oral 800 Output: Urine 500 Other: Voiding Method Toilet Toilet # Voids 1 Weight 76.5 kg 01/25/19 06:13 01/25/19 06:13
[2019-01-25] MEDS: LEVOFLOXACIN 750 MG TAB PO SCH (16:21)
[2019-01-25] MEDS: SERTRALINE 100 MG TAB PO SCH (17:10)
[2019-01-25] MEDS: ALPRAZolam 0.5 MG TAB PO PRN (17:16)
--- NOTE | 2019-01-25 21:43 | PN ---
PROGRESS NOTE Thelma is being seen for a followup. She is a bit less short of breath compared to yesterday. She gets very much worked up, short of breath with activity. She is having back pain and right-sided rib cage pain. Overall slightly improved compared to yesterday. White cell count of 9.9. She is still on a combination of bronchodilators. She is also on IV Solu-Medrol. She is receiving diuretics and renal function is stable. Her BUN is 21 with a creatinine of 0.7. The rest of the electrolytes are all within normal limits. No fever. No chills. No other complaints otherwise for now. PHYSICAL EXAMINATION: Her current vitals are temperature is 97.8, pulse is 88, respirations 16. Blood pressure is 95/58, and saturation 95% on room air. GENERAL APPEARANCE: Calm comfortable. LUNGS: Diminished breath sounds bilaterally. There is kyphosis of the chest. There is scattered expiratory wheezing throughout all lung doyle. HEART: Sounds regular rate and rhythm. Normal S1, S2. No S3, S4. No murmurs. ABDOMEN: Soft, nontender. No organomegaly. EXTREMITIES: Trace edema. There is no cyanosis or clubbing. Labs are mentioned. Sodium is 138, potassium 4.4, pulse 100, bicarb 30, BUN 21, creatinine 0.8. White count 9.9, hemoglobin was 12.0. IMPRESSION: 1. There is a shortness of breath secondary to exacerbation of chronic asthma. The patient may have an underlying component of congestive heart failure with fluid overload. She has chronic history of bronchiolitis obliterans with organizing pneumonia. 2. History of splenectomy. 3. History of chronic steroid use with Cushingoid features. 4. Hodgkin lymphoma history of. 5. Obstructive sleep apnea. 6. History of renal cancer status post partial nephrectomy. 7. Hypertension. 8. Hyperlipidemia. 9. History of chronic back pain. Compression fracture of the spine. 10.Hypothyroidism. PLAN: 1. Continue bronchodilators and systemic steroids for another 24 hours. 2. Continue Levaquin. 3. The diuretics will be continued for another 24 hours in an IV form 20 mg q.12 hours. 4. Blood work is appropriate. 5. Clinically improving, re-evaluation in a.m. 6. Possible discharge in next 24-48 hours. MMODL / IJN: [id number] /
[2019-01-25] MEDS: ATORVASTATIN 20 MG TAB PO SCH (21:48)
[2019-01-25] MEDS: MONTELUKAST 10 MG TAB PO SCH (21:48)
[2019-01-25] MEDS: ACETAMINOPHEN TAB 325 MG TAB PO PRN (23:07)
[2019-01-26] MEDS: methylPREDNISolone SOD SUCCI 125 MG/2 ML VIAL IV SCH ×5 (00:42→23:47)
[2019-01-26] MEDS: SPIRONOLACTONE 25 MG TAB PO SCH ×2 (01:02→21:18)
[2019-01-26] MEDS: ALPRAZolam 0.5 MG TAB PO PRN ×3 (02:26→21:18)
[2019-01-26] MEDS: LEVOTHYROXINE 100 MCG TAB PO SCH (06:19)
[2019-01-26] MEDS: IPRATROPIUM-ALBUTEROL 3 ML NEB INHALATION SCH ×4 (08:12→20:25)
[2019-01-26] MEDS: SYMBICORT 160-4.5 MCG INHALER INHALATION SCH ×2 (08:12→20:25)
[2019-01-26] MEDS: FUROSEMIDE 10 MG/ML 2 ML VIAL IV SCH ×2 (08:53→21:18)
[2019-01-26] MEDS: PANTOPRAZOLE 40 MG TABLET PO SCH ×2 (08:53→17:17)
[2019-01-26] MEDS: METOPROLOL SUCCINATE (ER) 25 MG TAB.ER.24H PO SCH (08:53)
[2019-01-26] MEDS: ARIPiprazole 5 MG TAB PO SCH (08:53)
[2019-01-26] MEDS: POTASSIUM CHLORIDE ER 10 MEQ TAB.ER.PRT PO SCH (08:53)
[2019-01-26] MEDS: ENOXAPARIN 40 MG/0.4 ML SYRINGE SQ SCH (08:53)
[2019-01-26 10:08] LABS: Anisocytosis Slight; Basophils % (A) 0 %; Eosinophils % (A) 0 %; HCT 39.3 % (34.0-46.0); HGB 12.4 gm/dL (11.4-16.0); Lymphocytes # (A) 0.7 k/uL (1.0-4.8); Lymphocytes % (A) 5 %; MCHC 31.6 g/dL (31.0-37.0); MCV 82.3 fL (80.0-100.0); Mean Platelet Volume 7.3; Monocytes # (A) 0.7 k/uL (0-1.0); Monocytes % (A) 5 %; Neutrophils # (A) 11.8 k/uL (1.3-7.7); Neutrophils % (A) 89 %; Platelet Count 416 k/uL (150-450); RBC 4.77 m/uL (3.80-5.40); RDW 17.7 % (11.5-15.5); WBC 13.3 k/uL (3.8-10.6)
[2019-01-26 10:15] LABS: Calcium 9.6 mg/dL (8.4-10.2); Potassium 4.6 mmol/L (3.5-5.1); Total Bilirubin 0.7 mg/dL (0.2-1.3); Total Protein 6.9 g/dL (6.3-8.2)
--- NOTE | 2019-01-26 12:19 | P.PN ---
Subjective Progress Note Date: 01/26/19 This is a 63-year-old female patient who presented to the hospital for complaints of increasing shortness of breath. Patient also reports she has broken rib on her right side and she is experiencing discomfort. 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 Patient was on high-dose steroids for 1 year. Additional medical history includes Hodgkin's lymphoma status post chemoradiation in 1978, history of breast cancer status post mastectomy, renal cancer status post partial nephrectomy, essential hypertension, hyperlipidemia, T compression fracture, hypothyroidism, chronic persistent asthma, sinus headache, chronic hypoxic respiratory failure and congestive heart failure. Chest x-ray completed in ER showing pulmonary fibrosis. There is probably mild congestive heart failure. Left pleural effusion is increased compared to old exam. Old granulomatous disease. Pulmonary congestion unchanged. EKG completed showing sinus tachycardia with left bundle branch block. D-dimer mildly elevated at 0.47. Discussed with Dr. Valadez and pulmonary services. At this time will order Lovenox 1 mg/kg twice a day and await for pulmonary input. At this time patient states some improvement with shortness of breath. Patient denies nausea vomiting or diarrhea. Patient denies any urinary burning or frequency. On 01/25/2019 patient remains alert and oriented 3. Patient feels slightly improved from yesterday regards to shortness breath. Patient recent IV Lasix IV steroids and antibiotics. CTA has been ordered per cardiology. Patient denies chest pain. Patient does complain of some SOB with activity. Denies nausea vomitting or diarrhea. On 01/26/2019 patient remains alert and oriented 3. CTA of chest performed yesterday showing no evidence of pulmonary embolism. At this time patient remains on IV steroids, IV Lasix and Levaquin for antibiotic. Patient reports that she still pretty short of breath with activity. Patient may require home oxygen. Home oxygen test be performed. At this time patient denies nausea vomiting or diarrhea. Patient denies any urinary burning or frequency. Objective - Vital Signs Vital signs: Vital Signs Temp 97.4 F L 01/26/19 08:00 Pulse 92 01/26/19 08:26 Resp 18 01/26/19 08:00 BP 93/59 01/26/19 08:00 Pulse Ox 96 01/26/19 08:00 Intake & Output 01/25/19 01/26/19 01/26/19 18:59 06:59 18:59 Intake Total 800 220 240 Output Total 625 250 Balance 175 -30 240 Intake: Oral 600 220 240 Other 200 Output: Urine 625 250 Other: Voiding Method Toilet Toilet Toilet - Exam Head normocephalic Neck supple Lungs diminished bilaterally Heart regular rate and rhythm S1-S2, no rub or gallop Abdomen is soft nontender nondistended positive bowel sounds no hepatosplenomegaly Extremities no edema Neuro alert and orientated to 3 - Labs CBC & Chem 7: 01/26/19 09:19 01/26/19 09:19 Labs: Abnormal Lab Results - Last 24 Hours (Table) 01/26/19 01/26/19 Range/Units 09: 09:19 WBC 13.3 H (3.8-10.6) k/uL RDW 17.7 H (11.5-15.5) % Neutrophils # 11.8 H (1.3-7.7) k/uL Lymphocytes # 0.7 L (1.0-4.8) k/uL BUN 33 H (7-17) mg/dL Glucose 144 H (74-99) mg/dL Microbiology - Last 24 Hours (Table) 01/23/19 17:34 Blood Culture - Preliminary Blood No Growth after 48 hours Assessment and Plan Assessment: 1. Dyspnea related to acute on chronic diastolic congestive heart failure exacerbation. Last 2-D echo completed in May showing an EF of 50-55% patient started on IV Lasix at this time. per Pulmonary services continue IV diuretics , Solu-Medrol and Levaquin antibiotic. CTA completed showing no evidence of pulmonary embolism. Patient remains on IV steroids and IV diuretic at this time along with Levaquin 2. History of bronchiolitis obliternas organizing pneumonia. Pulmonary has been consulted. 3. History of Hodgkin's lymphoma status post chemoradiation 1978 4. History of breast cancer status post cystectomy 5. History of renal cancer status post partial nephrectomy 6. History of hypertension 7. History of hyperlipidemia 8. History of T8 compression fracture 9. History of hypothyroidism 10. Chronic persistent asthma Home oxygen test be performed. Patient likely will require home O2 DVT prophylaxis Lovenox. GI prophylaxis Protonix I performed an examination of the patient and discussed their management with the Nurse Practitioner. I have reviewed the Nurse Practitioner's notes and agree with the documented findings and plan of care
--- NOTE | 2019-01-26 13:17 | P.PN ---
Subjective This is a pleasant 63-year-old female past medical history significant for chronic systolic heart failure, pulmonary hypertension, valvular heart disease, hypertension, dyslipidemia, COPD, Hodgkins lymphoma in 1979 s/p radiaiton therapy and chronic left sided pleural effusion. She underwent cardiac catheterization in 2012 reveals normal coronary arteries. She follows in the office with Dr. Jasso. CTA was obtained yesterday due to elevated d-dimer and was negative for PE. Laboratory data reviewed, WBC 13.3, hgb 12.4, plt 416, sodium 138, potassium 4.6, creatinine 0.9. Currently maintained on lasix 20 mg IV BID, toprol 25 mg daily and aldactone 25 mg daily. Blood pressure 114/72 heart rate 93. She continues to feel short of breath with any sort of exertion. She denies chest pain, palpitations or dizziness. Most recent echocardiogram obtained in the office September 2018 reveals impaired LV systolic function with ejection fraction 45%, grade 2 diastolic dysfunction, mild to moderate aortic regurgitation and moderate aortic stenosis with a mean gradient across the valve of 13 mmHg, moderate tricuspid regurgitation, severe pulmonary hypertension with a PSP of 75 mmHg, moderate pulmonic regurgitation and mild to moderate mitral regurgitation. GENERAL: This is a 63-year-old female in no apparent distress at the time of my examination. HEENT: Head is atraumatic, normocephalic. Pupils are equal, round. Sclerae anicteric. Conjunctivae are clear. Mucous membranes of the mouth are moist. Neck is supple. There is no jugular venous distention. No carotid bruit is heard. LUNGS: Faint expiratory wheezes, no rales or rhonchi, much better air exchange in bilateral lungs. No chest wall tenderness is noted on palpation or with deep breathing. HEART: Regular rate and rhythm with systolic ejection murmur at the base, no rubs or gallops. S1 and S2 heard. EXTREMITIES: Trace bilateral lower extremity edema and no calf tenderness noted. ASSESSMENT Acute on chronic systolic and diastolic heart failure Severe pulmonary hypertension COPD Valvular heart disease Chest pain, atypical for angina with musculoskeletal features. An acute coronary event has been ruled out. Hypertension Dyslipidemia Nonischemic cardiomyopathy History of bronchiolitis obliterans with organizing pneumonia PLAN Continue current medical regimen. Her fluid overload is improving. Ongoing shortness of breath multi-factorial due to pulmonary hypertension, pulmonary fibrosis and heart failure. Expect she can be transitioned to PO diuretics tomorrow. Further recommendations to follow based on clinical course. Nurse Practitioner note has been reviewed, I agree with a documented findings and plan of care. Patient was seen and examined. Objective - Vital Signs Vital signs: Vital Signs Temp 98 F 01/26/19 12:00 Pulse 93 01/26/19 12:00 Resp 18 01/26/19 12:00 BP 114/72 01/26/19 12:00 Pulse Ox 95 01/26/19 12:00 Intake & Output 01/25/19 01/26/19 01/26/19 18:59 06:59 18:59 Intake Total 800 220 240 Output Total 625 250 700 Balance 175 -30 -460 Intake: Oral 600 220 240 Other 200 Output: Urine 625 250 700 Other: Voiding Method Toilet Toilet Toilet - Labs CBC & Chem 7: 01/26/19 09:19 01/26/19 09:19 Labs: Abnormal Lab Results - Last 24 Hours (Table) 01/26/19 01/26/19 Range/Units 09:19 09:19 WBC 13.3 H (3.8-10.6) k/uL RDW 17.7 H (11.5-15.5) % Neutrophils # 11.8 H (1.3-7.7) k/uL Lymphocytes # 0.7 L (1.0-4.8) k/uL BUN 33 H (7-17) mg/dL Glucose 144 H (74-99) mg/dL Microbiology - Last 24 Hours (Table) 01/23/19 17:34 Blood Culture - Preliminary Blood No Growth after 48 hours
--- NOTE | 2019-01-26 15:08 | CDI ---
Documentation Clarification Form Date: 01/26/2019 2:57:47 PM From: Christine Rhoades CCS, CCDS Admit Date: 01/25/2019 2:45:00 PM Patient Name: Thelma Clark Visit Number: [id number] Discharge Date: ATTENTION: The Clinical Documentation Specialists (CDI) and [facility] Coding Staff appreciate your assistance in clarifying documentation. Please respond to the clarification below the line at the bottom and electronically sign. The CDI & [facility] Coding staff will review the response and follow-up if needed. Please note: Queries are made part of the Legal Health Record. If you have any questions, please contact the author of this message via ITS. Dr. Michelle Naqvi: Conflicting documentation has been found in the medical record: Per the cardiology notes: "Acute on chronic systolic and diastolic heart failure Severe pulmonary hypertension." Per the attending notes: "Dyspnea related to acute on chronic diastolic congestive heart failure exacerbation." History/Risk Factors: CHF, chronic persistent asthma, chronic hypoxic respiratory failure, BOOP, Hodgkin's lymphoma status post chemo/rad 1979, Breast CA status post mastectomy, Renal CA status post partial nephrectomy. Clinical Indicators: Presented with increasing SOB. Has fractured rib on the right side. Treatment: IV Lasix, IV Narcan, Albuterol INH, O2 2Lnc. In your opinion, do you agree with the cardiology notes regarding the acuity & type of congestive heart failure? ___ Yes, Acute on Chronic combined Systolic & Diastolic CHF ___ No, please specify the acuity & type of CHF ___ Unable to determine (no explanation for clinical findings) (Last Revision: February 2018) Yes acute on chronic systolic and diastolic CHF MTDD
[2019-01-26] MEDS: LEVOFLOXACIN 750 MG TAB PO SCH (17:17)
[2019-01-26] MEDS: SERTRALINE 100 MG TAB PO SCH (17:18)
[2019-01-26] MEDS: MONTELUKAST 10 MG TAB PO SCH (21:18)
[2019-01-26] MEDS: ATORVASTATIN 20 MG TAB PO SCH (21:18)
[2019-01-27] MEDS: methylPREDNISolone SOD SUCCI 125 MG/2 ML VIAL IV SCH ×3 (05:35→16:45)
[2019-01-27] MEDS: LEVOTHYROXINE 100 MCG TAB PO SCH (05:35)
[2019-01-27] MEDS: SYMBICORT 160-4.5 MCG INHALER INHALATION SCH ×2 (07:34→18:59)
[2019-01-27] MEDS: IPRATROPIUM-ALBUTEROL 3 ML NEB INHALATION SCH ×4 (07:34→18:59)
[2019-01-27 07:45] LABS: Anisocytosis Slight; Basophils % (A) 0 %; Eosinophils % (A) 0 %; HCT 36.3 % (34.0-46.0); HGB 11.7 gm/dL (11.4-16.0); Lymphocytes # (A) 0.6 k/uL (1.0-4.8); Lymphocytes % (A) 6 %; MCH 26.4 pg (25.0-35.0); MCHC 32.1 g/dL (31.0-37.0); MCV 82.2 fL (80.0-100.0); Mean Platelet Volume 7.4; Monocytes # (A) 0.6 k/uL (0-1.0); Monocytes % (A) 6 %; Neutrophils # (A) 8.7 k/uL (1.3-7.7); Neutrophils % (A) 87 %; Platelet Count 373 k/uL (150-450); RBC 4.42 m/uL (3.80-5.40); RDW 17.8 % (11.5-15.5)
[2019-01-27 07:55] LABS: Albumin 3.6 g/dL (3.5-5.0); Calcium 9.4 mg/dL (8.4-10.2); Potassium 4.4 mmol/L (3.5-5.1); Total Bilirubin 0.5 mg/dL (0.2-1.3); Total Protein 6.2 g/dL (6.3-8.2)
[2019-01-27] MEDS: ARIPiprazole 5 MG TAB PO SCH (08:08)
[2019-01-27] MEDS: ENOXAPARIN 40 MG/0.4 ML SYRINGE SQ SCH (08:08)
[2019-01-27] MEDS: FUROSEMIDE 10 MG/ML 2 ML VIAL IV SCH ×2 (08:08→20:31)
[2019-01-27] MEDS: METOPROLOL SUCCINATE (ER) 25 MG TAB.ER.24H PO SCH (08:08)
[2019-01-27] MEDS: PANTOPRAZOLE 40 MG TABLET PO SCH ×2 (08:08→16:44)
[2019-01-27] MEDS: POTASSIUM CHLORIDE ER 10 MEQ TAB.ER.PRT PO SCH (08:08)
[2019-01-27] MEDS ORDERED: ERGOCALCIFEROL 50,000 UNIT CAP PO SCH (12:00)
[2019-01-27] MEDS: ALPRAZolam 0.5 MG TAB PO PRN ×2 (14:11→22:01)
--- NOTE | 2019-01-27 15:06 | P.PN ---
Subjective Progress Note Date: 01/27/19 This is a 63-year-old female patient who presented to the hospital for complaints of increasing shortness of breath. Patient also reports she has broken rib on her right side and she is experiencing discomfort. 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 Patient was on high-dose steroids for 1 year. Additional medical history includes Hodgkin's lymphoma status post chemoradiation in 1978, history of breast cancer status post mastectomy, renal cancer status post partial nephrectomy, essential hypertension, hyperlipidemia, T compression fracture, hypothyroidism, chronic persistent asthma, sinus headache, chronic hypoxic respiratory failure and congestive heart failure. Chest x-ray completed in ER showing pulmonary fibrosis. There is probably mild congestive heart failure. Left pleural effusion is increased compared to old exam. Old granulomatous disease. Pulmonary congestion unchanged. EKG completed showing sinus tachycardia with left bundle branch block. D-dimer mildly elevated at 0.47. Discussed with Dr. Valadez and pulmonary services. At this time will order Lovenox 1 mg/kg twice a day and await for pulmonary input. At this time patient states some improvement with shortness of breath. Patient denies nausea vomiting or diarrhea. Patient denies any urinary burning or frequency. On 01/25/2019 patient remains alert and oriented 3. Patient feels slightly improved from yesterday regards to shortness breath. Patient recent IV Lasix IV steroids and antibiotics. CTA has been ordered per cardiology. Patient denies chest pain. Patient does complain of some SOB with activity. Denies nausea vomitting or diarrhea. On 01/26/2019 patient remains alert and oriented 3. CTA of chest performed yesterday showing no evidence of pulmonary embolism. At this time patient remains on IV steroids, IV Lasix and Levaquin for antibiotic. Patient reports that she still pretty short of breath with activity. Patient may require home oxygen. Home oxygen test be performed. At this time patient denies nausea vomiting or diarrhea. Patient denies any urinary burning or frequency. On 01/27/2019 patient was seen and examined on the medical floor she is alert and oriented 3 in no apparent distress she is still complaining of severe shortness of breath with any activity she is comfortable at rest with oxygen otherwise she denies any complaints there is no fever or chills no headache or dizziness no chest pain no shortness of breath no nausea or vomiting no abdominal pain no diarrhea and no urinary symptoms. Objective - Vital Signs Vital signs: Vital Signs Temp 97.8 F 01/27/19 11:54 Pulse 109 H 01/27/19 11:54 Resp 18 01/27/19 11:54 BP 110/70 01/27/19 11:54 Pulse Ox 98 01/27/19 11:54 Intake & Output 01/26/19 01/27/19 01/27/19 18:59 06:59 18:59 Intake Total 240 Output Total 700 Balance -460 Weight 76.2 kg Intake: Oral 240 Output: Urine 700 Other: Voiding Method Toilet Toilet Toilet - Exam In general patient is alert and oriented 3 in no apparent distress Head normocephalic and atraumatic Neck supple no JVD no goiter Lungs diminished bilaterally with few scattered rhonchi no wheezing Heart regular rate and rhythm S1-S2, no rub or gallop Abdomen is soft nontender nondistended positive bowel sounds no hepatosplenomegaly Extremities no edema no cyanosis or clubbing Neuro no gross neurological deficit - Labs CBC & Chem 7: 01/27/19 06:33 01/27/19 06:33 Labs: Abnormal Lab Results - Last 24 Hours (Table) 01/27/19 01/27/19 Range/Units 06:33 06:33 RDW 17.8 H (11.5-15.5) % Neutrophils # 8.7 H (1.3-7.7) k/uL Lymphocytes # 0.6 L (1.0-4.8) k/uL BUN 33 H (7-17) mg/dL Glucose 130 H (74-99) mg/dL Total Protein 6.2 L (6.3-8.2) g/dL Microbiology - Last 24 Hours (Table) 01/23/19 17:34 Blood Culture - Preliminary Blood No Growth after 72 hours Assessment and Plan Plan: 1. Dyspnea related to acute on chronic diastolic congestive heart failure exacerbation. Last 2-D echo completed in May showing an EF of 50-55% patient started on IV Lasix at this time. per Pulmonary services continue IV diuretics , Solu-Medrol and Levaquin antibiotic. CTA completed showing no evidence of pulmonary embolism. Patient remains on IV steroids and IV diuretic at this time along with Levaquin 2. History of bronchiolitis obliternas organizing pneumonia. Pulmonary has been consulted. 3. History of Hodgkin's lymphoma status post chemoradiation 1978 4. History of breast cancer status post cystectomy 5. History of renal cancer status post partial nephrectomy 6. History of hypertension 7. History of hyperlipidemia 8. History of T8 compression fracture 9. History of hypothyroidism 10. Chronic persistent asthma Home oxygen test be performed. Patient will require home O2 DVT prophylaxis Lovenox. GI prophylaxis Protonix Medication and labs reviewed continue current regimen patient is improving gradually Plan for discharge to home on Tuesday
[2019-01-27] MEDS: LEVOFLOXACIN 750 MG TAB PO SCH (16:44)
[2019-01-27] MEDS: SERTRALINE 100 MG TAB PO SCH (16:44)
--- NOTE | 2019-01-27 17:07 | P.PN ---
Subjective Progress Note Date: 01/27/19 This is a 62-year-old female with history of pulmonary hypertension, valvular heart disease, hypertension, dyslipidemia, COPD and heart distant lymphoma who is admitted to the hospital with increasing shortness of breath. Patient also has chronic left-sided pleural effusion. Patient has been IV Lasix since admission along with Toprol-XL and Aldactone. Patient is comfortable at rest. Still complaining of shortness of breath with exertion. Her edema is resolving. Computed tomography scan did not reveal any pulmonary embolism. We' ll continue IV Lasix for one more day . May switch to by mouth Lasix tomorrow Objective - Vital Signs Vital signs: Vital Signs Temp 97.8 F 01/27/19 11:54 Pulse 103 H 01/27/19 15:42 Resp 18 01/27/19 11:54 BP 110/70 01/27/19 11:54 Pulse Ox 98 01/27/19 15:34 Intake & Output 01/26/19 01/27/19 01/27/19 18:59 06:59 18:59 Intake Total 240 Output Total 700 Balance -460 Weight 76.2 kg Intake: Oral 240 Output: Urine 700 Other: Voiding Method Toilet Toilet Toilet - Exam GENERAL EXAM: Patient is alert and oriented and doesn't appear to be in any acute distress HEENT: Normocephalic. Normal reaction of pupils, equal size, normal range of extraocular motion. No erythema or exudates in the throat. NECK: No masses, no nuchal rigidity. CHEST: No chest wall deformity. LUNGS: Diminished breath sounds at bases HEART: S1 and S2 normal. Systolic murmur heard at the base ABDOMEN: No hepatosplenomegaly, normal bowel sounds, no guarding or rigidity. SKIN: No rashes CENTRAL NERVOUS SYSTEM: No focal deficits. EXTREMITIES: Resolving edema - Labs CBC & Chem 7: 01/27/19 06:33 01/27/19 06:33 Labs: Abnormal Lab Results - Last 24 Hours (Table) 01/27/19 01/27/19 Range/Units 06:33 06:33 RDW 17.8 H (11.5-15.5) % Neutrophils # 8.7 H (1.3-7.7) k/uL Lymphocytes # 0.6 L (1.0-4.8) k/uL BUN 33 H (7-17) mg/dL Glucose 130 H (74-99) mg/dL Total Protein 6.2 L (6.3-8.2) g/dL Microbiology - Last 24 Hours (Table) 01/23/19 17:34 Blood Culture - Preliminary Blood No Growth after 72 hours Assessment and Plan (1) CHF exacerbation Current Visit: Yes Status: Acute Code(s): I50.9 - HEART FAILURE, UNSPECIFIED SNOMED Code(s): 12025173 (2) BOOP (bronchiolitis obliterans with organizing pneumonia) Current Visit: No Status: Acute Code(s): J84.89 - OTHER SPECIFIED INTERSTITIAL PULMONARY DISEASES SNOMED Code(s): 364629351 (3) History of Hodgkin's lymphoma Current Visit: No Status: Acute Code(s): Z85.71 - PERSONAL HISTORY OF HODGKIN LYMPHOMA SNOMED Code(s): 261266273 (4) Hyperlipidemia Current Visit: No Status: Chronic Code(s): E78.5 - HYPERLIPIDEMIA, UNSPECIFIED SNOMED Code(s): 19883614 (5) Hypertension Current Visit: No Status: Chronic Code(s): I10 - ESSENTIAL (PRIMARY) HYPERTENSION SNOMED Code(s): 85506369 Plan: Continue current medical therapy. May switch to by mouth Lasix from tomorrow
[2019-01-27] MEDS: MONTELUKAST 10 MG TAB PO SCH (20:31)
[2019-01-27] MEDS: guaiFENesin 600 MG TABLET.ER PO SCH (20:31)
[2019-01-27] MEDS: DOCUSATE 100 MG CAP PO SCH (20:31)
[2019-01-27] MEDS: ATORVASTATIN 20 MG TAB PO SCH (20:31)
[2019-01-27] MEDS: SPIRONOLACTONE 25 MG TAB PO SCH (20:31)
[2019-01-28] MEDS: methylPREDNISolone SOD SUCCI 125 MG/2 ML VIAL IV SCH ×5 (00:55→23:32)
[2019-01-28] MEDS: LEVOTHYROXINE 100 MCG TAB PO SCH (06:30)
[2019-01-28 06:54] LABS: Anisocytosis Slight; Basophils % (A) 0 %; Eosinophils % (A) 0 %; HCT 36.9 % (34.0-46.0); HGB 11.8 gm/dL (11.4-16.0); Hypochromasia Slight; Lymphocytes # (A) 0.7 k/uL (1.0-4.8); Lymphocytes % (A) 7 %; MCH 26.5 pg (25.0-35.0); MCV 82.8 fL (80.0-100.0); Mean Platelet Volume 6.7; Monocytes # (A) 0.6 k/uL (0-1.0); Monocytes % (A) 7 %; Neutrophils # (A) 8.1 k/uL (1.3-7.7); Neutrophils % (A) 85 %; Platelet Count 417 k/uL (150-450); RBC 4.46 m/uL (3.80-5.40); WBC 9.5 k/uL (3.8-10.6)
[2019-01-28 07:02] LABS: Albumin 3.5 g/dL (3.5-5.0); Calcium 9.3 mg/dL (8.4-10.2); Potassium 4.3 mmol/L (3.5-5.1); Total Bilirubin 0.6 mg/dL (0.2-1.3); Total Protein 6.1 g/dL (6.3-8.2)
[2019-01-28] MEDS: IPRATROPIUM-ALBUTEROL 3 ML NEB INHALATION SCH ×4 (08:15→19:51)
[2019-01-28] MEDS: SYMBICORT 160-4.5 MCG INHALER INHALATION SCH ×2 (08:15→19:51)
[2019-01-28] MEDS: PANTOPRAZOLE 40 MG TABLET PO SCH ×2 (08:29→16:48)
[2019-01-28] MEDS: guaiFENesin 600 MG TABLET.ER PO SCH ×2 (08:29→20:30)
[2019-01-28] MEDS: METOPROLOL SUCCINATE (ER) 25 MG TAB.ER.24H PO SCH (08:29)
[2019-01-28] MEDS: POTASSIUM CHLORIDE ER 10 MEQ TAB.ER.PRT PO SCH (08:29)
[2019-01-28] MEDS: DOCUSATE 100 MG CAP PO SCH ×2 (08:29→20:29)
[2019-01-28] MEDS: ARIPiprazole 5 MG TAB PO SCH (08:29)
[2019-01-28] MEDS: ENOXAPARIN 40 MG/0.4 ML SYRINGE SQ SCH (08:30)
[2019-01-28] MEDS: FUROSEMIDE 20 MG TAB PO SCH (08:35)
--- NOTE | 2019-01-28 11:04 | P.PN ---
Subjective Progress Note Date: 01/28/19 This is a 62-year-old female with history of pulmonary hypertension, valvular heart disease, hypertension, dyslipidemia, COPD and heart distant lymphoma who is admitted to the hospital with increasing shortness of breath. Patient also has chronic left-sided pleural effusion. Patient has been IV Lasix since admission along with Toprol-XL and Aldactone. Patient is comfortable at rest. Still complaining of shortness of breath with exertion. Her edema is resolving. Computed tomography scan did not reveal any pulmonary embolism. We' ll continue IV Lasix for one more day . May switch to by mouth Lasix tomorrow. 01/28/2019: This patient seemed to be feeling better. Seemed to be less short of breath. She is currently on by mouth Lasix. Lungs appeared to be clear. Heart is regular. Increase activity as tolerated. Possible discharge within next 24 hours. Patient may require home oxygen. Objective - Vital Signs Vital signs: Vital Signs Temp 97.4 F L 01/28/19 05:00 Pulse 100 01/28/19 10:59 Resp 18 01/28/19 05:00 BP 99/61 01/28/19 05:00 Pulse Ox 98 01/28/19 08:16 Intake & Output 01/27/19 01/28/19 01/28/19 18:59 06:59 18:59 Intake Total 240 Balance 240 Weight 76.5 kg Intake: Oral 240 Other: Voiding Method Toilet Toilet Toilet - Exam GENERAL EXAM: Patient is alert and oriented and doesn't appear to be in any acute distress HEENT: Normocephalic. Normal reaction of pupils, equal size, normal range of extraocular motion. No erythema or exudates in the throat. NECK: No masses, no nuchal rigidity. CHEST: No chest wall deformity. LUNGS: Diminished breath sounds at bases HEART: S1 and S2 normal. Systolic murmur heard at the base ABDOMEN: No hepatosplenomegaly, normal bowel sounds, no guarding or rigidity. SKIN: No rashes CENTRAL NERVOUS SYSTEM: No focal deficits. EXTREMITIES: Resolving edema - Labs CBC & Chem 7: 01/28/19 06:02 01/28/19 06:02 Labs: Abnormal Lab Results - Last 24 Hours (Table) 01/28/19 01/28/19 Range/Units 06:02 06:02 RDW 18.0 H (11.5-15.5) % Neutrophils # 8.1 H (1.3-7.7) k/uL Lymphocytes # 0.7 L (1.0-4.8) k/uL BUN 32 H (7-17) mg/dL Glucose 138 H (74-99) mg/dL Total Protein 6.1 L (6.3-8.2) g/dL Microbiology - Last 24 Hours (Table) 01/23/19 17:34 Blood Culture - Preliminary Blood No Growth after 96 hours Assessment and Plan (1) CHF exacerbation Current Visit: Yes Status: Acute Code(s): I50.9 - HEART FAILURE, UNSPECIFIED SNOMED Code(s): 52882818 (2) BOOP (bronchiolitis obliterans with organizing pneumonia) Current Visit: No Status: Acute Code(s): J84.89 - OTHER SPECIFIED INTERSTITIAL PULMONARY DISEASES SNOMED Code(s): 155688756 (3) History of Hodgkin's lymphoma Current Visit: No Status: Acute Code(s): Z85.71 - PERSONAL HISTORY OF HODGKIN LYMPHOMA SNOMED Code(s): 147540610 (4) Hyperlipidemia Current Visit: No Status: Chronic Code(s): E78.5 - HYPERLIPIDEMIA, UNSPECIFIED SNOMED Code(s): 51833682 (5) Hypertension Current Visit: No Status: Chronic Code(s): I10 - ESSENTIAL (PRIMARY) HYPERTENSION SNOMED Code(s): 99457473 Plan: Patient is feeling better. Clinically stable. On by mouth diuretics. Possible discharge within 24 hours probably on home oxygen
--- NOTE | 2019-01-28 13:24 | P.PN ---
Subjective Progress Note Date: 01/28/19 On 01/28/2019 I'm seeing this patient for a follow-up. She is doing much better. No major respiratory distress. Significant improvement in her pulmonary status over the past 24 hours. Cough and wheezing has subsided. No chest pain. No altered mentation. No hemoptysis. No pleurisy. Patient is doing her DuoNeb nebulized treatments around the clock. She is on Symbicort as maintenance. She is on oral Lasix and IV Lasix was discontinued. She is on IV Solu Medrol 60 mg every 6 hours that can be weaned off. Her hemoglobin is at 11.8. BUN/creatinine are within normal limits. Objective - Vital Signs Vital signs: Vital Signs Temp 97.8 F 01/28/19 11:31 Pulse 94 01/28/19 11:31 Resp 20 01/28/19 11:31 BP 114/71 01/28/19 11:31 Pulse Ox 98 01/28/19 08:16 Intake & Output 01/27/19 01/28/19 01/28/19 18:59 06:59 18:59 Intake Total 240 Balance 240 Weight 76.5 kg Intake: Oral 240 Other: Voiding Method Toilet Toilet Toilet - Exam Appearance, comfortable likely distress. The patient is some old cushingoid features, improved while being off steroids. Head exam was generally normal. There was no scleral icterus or corneal arcus. Mucous membranes were moist. Neck was supple and without jugular venous distension, thyromegaly, or carotid bruits. Carotids were easily palpable bilaterally. There was no adenopathy. Lungs sounds are diminished bilaterally and the wheezing has subsided Cardiac exam revealed the PMI to be normally situated and sized. The rhythm was regular and no extrasystoles were noted during several minutes of auscultation. The first and second heart sounds were normal and physiologic splitting of the second heart sound was noted. There were no murmurs, rubs, clicks, or gallops. Abdominal exam revealed normal bowel sounds. The abdomen was soft, non-tender, and without masses, organomegaly, or appreciable enlargement of the abdominal aorta. Examination of the extremities revealed easily palpable radial, femoral and pedal pulses. There was no cyanosis, clubbing or edema. Examination of the skin revealed no evidence of significant rashes, suspicious appearing nevi or other concerning lesions. Neurologically awake and alert and there is no focal neurological deficit. - Labs CBC & Chem 7: 01/28/19 06:02 01/28/19 06:02 Labs: Abnormal Lab Results - Last 24 Hours (Table) 01/28/19 01/28/19 Range/Units 06:02 06:02 RDW 18.0 H (11.5-15.5) % Neutrophils # 8.1 H (1.3-7.7) k/uL Lymphocytes # 0.7 L (1.0-4.8) k/uL BUN 32 H (7-17) mg/dL Glucose 138 H (74-99) mg/dL Total Protein 6.1 L (6.3-8.2) g/dL Microbiology - Last 24 Hours (Table) 01/23/19 17:34 Blood Culture - Preliminary Blood No Growth after 96 hours Assessment and Plan Plan: Assessment 1 acute dyspnea . The patient has evidence of asthma/COPD exacerbation in addition to CHF with increased pulmonary vascular marking and signs of congestion heart failure and fluid overload. I think her shortness of breath is multifactorial. Clinically the patient is improved significantly. The patient was treated with a combination of bronchodilators and steroids. Her asthma management has been optimized. She has underlying we'll. Her CHF seems to be also optimized at this point in time. 2 history of pulmonary bronchiolitis obliterans with organizing pneumonia, currently off systemic steroids 3 history of splenectomy which obviously puts arthritis Having infection/sepsis 4 history of chronic steroid use with cushingoid features which are recovering and the patient was taken off steroids 5 history of Hodgkin's lymphoma status post chemo radiation therapy back in 1978 6 history of obstructive sleep apnea 7 history of renal cancer status post partial nephrectomy 8 hypertension 9 hyperlipidemia 10 compression fracture of the T8 spine 11 hypothyroidism 12 chronic back pain 13 mediastinal lymph nodes calcification related to previous Hodgkin's disease and radiation therapy Plan The patient can be taken off the IV Solu-Medrol and started on a prednisone burst taper and I would suggest at 12-16 the prednisone burst taper that can be done on outpatient basis. She is on Levaquin. She has done much better and she is improved considerably. She can be discharged in next 24 hours and the patient can be followed up by our office in regards to her asthma and BOOP.
[2019-01-28] MEDS: ALPRAZolam 0.5 MG TAB PO PRN ×2 (13:43→22:21)
--- NOTE | 2019-01-28 14:13 | P.PN ---
Subjective Progress Note Date: 01/28/19 This is a 63-year-old female patient who presented to the hospital for complaints of increasing shortness of breath. Patient also reports she has broken rib on her right side and she is experiencing discomfort. 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 Patient was on high-dose steroids for 1 year. Additional medical history includes Hodgkin's lymphoma status post chemoradiation in 1978, history of breast cancer status post mastectomy, renal cancer status post partial nephrectomy, essential hypertension, hyperlipidemia, T compression fracture, hypothyroidism, chronic persistent asthma, sinus headache, chronic hypoxic respiratory failure and congestive heart failure. Chest x-ray completed in ER showing pulmonary fibrosis. There is probably mild congestive heart failure. Left pleural effusion is increased compared to old exam. Old granulomatous disease. Pulmonary congestion unchanged. EKG completed showing sinus tachycardia with left bundle branch block. D-dimer mildly elevated at 0.47. Discussed with Dr. Valadez and pulmonary services. At this time will order Lovenox 1 mg/kg twice a day and await for pulmonary input. At this time patient states some improvement with shortness of breath. Patient denies nausea vomiting or diarrhea. Patient denies any urinary burning or frequency. On 01/25/2019 patient remains alert and oriented 3. Patient feels slightly improved from yesterday regards to shortness breath. Patient recent IV Lasix IV steroids and antibiotics. CTA has been ordered per cardiology. Patient denies chest pain. Patient does complain of some SOB with activity. Denies nausea vomitting or diarrhea. On 01/26/2019 patient remains alert and oriented 3. CTA of chest performed yesterday showing no evidence of pulmonary embolism. At this time patient remains on IV steroids, IV Lasix and Levaquin for antibiotic. Patient reports that she still pretty short of breath with activity. Patient may require home oxygen. Home oxygen test be performed. At this time patient denies nausea vomiting or diarrhea. Patient denies any urinary burning or frequency. On 01/27/2019 patient was seen and examined on the medical floor she is alert and oriented 3 in no apparent distress she is still complaining of severe shortness of breath with any activity she is comfortable at rest with oxygen otherwise she denies any complaints there is no fever or chills no headache or dizziness no chest pain no shortness of breath no nausea or vomiting no abdominal pain no diarrhea and no urinary symptoms. On 01/28/2019 patient is doing better she is alert and oriented 3 her shortness of breath has been improving she is still having occasional cough otherwise she denies any complaints there is no fever or chills no headache or dizziness no chest pain no no nausea or vomiting no abdominal pain no diarrhea and no urinary symptoms Objective - Vital Signs Vital signs: Vital Signs Temp 97.8 F 01/28/19 11:31 Pulse 94 01/28/19 11:31 Resp 20 01/28/19 11:31 BP 114/71 01/28/19 11:31 Pulse Ox 98 01/28/19 08:16 Intake & Output 01/27/19 01/28/19 01/28/19 18:59 06:59 18:59 Intake Total 240 Balance 240 Weight 76.5 kg Intake: Oral 240 Other: Voiding Method Toilet Toilet Toilet - Exam In general patient is alert and oriented 3 in no apparent distress Head normocephalic and atraumatic Neck supple no JVD no goiter Lungs diminished bilaterally with few scattered rhonchi no wheezing Heart regular rate and rhythm S1-S2, no rub or gallop Abdomen is soft nontender nondistended positive bowel sounds no hepatosplenomegaly Extremities no edema no cyanosis or clubbing Neuro no gross neurological deficit - Labs CBC & Chem 7: 01/28/19 06:02 01/28/19 06:02 Labs: Abnormal Lab Results - Last 24 Hours (Table) 01/28/19 01/28/19 Range/Units 06:02 06:02 RDW 18.0 H (11.5-15.5) % Neutrophils # 8.1 H (1.3-7.7) k/uL Lymphocytes # 0.7 L (1.0-4.8) k/uL BUN 32 H (7-17) mg/dL Glucose 138 H (74-99) mg/dL Total Protein 6.1 L (6.3-8.2) g/dL Microbiology - Last 24 Hours (Table) 01/23/19 17:34 Blood Culture - Preliminary Blood No Growth after 96 hours Assessment and Plan Plan: 1. Dyspnea related to acute on chronic diastolic congestive heart failure exacerbation. Last 2-D echo completed in May showing an EF of 50-55% patient started on IV Lasix at this time. per Pulmonary services continue IV diuretics , Solu-Medrol and Levaquin antibiotic. CTA completed showing no evidence of pulmonary embolism. Patient remains on IV steroids and IV diuretic at this time along with Levaquin 2. History of bronchiolitis obliternas organizing pneumonia. Pulmonary has been consulted. 3. History of Hodgkin's lymphoma status post chemoradiation 1978 4. History of breast cancer status post cystectomy 5. History of renal cancer status post partial nephrectomy 6. History of hypertension 7. History of hyperlipidemia 8. History of T8 compression fracture 9. History of hypothyroidism 10. Chronic persistent asthma Home oxygen test be performed. Patient will require home O2 DVT prophylaxis Lovenox. GI prophylaxis Protonix Medication and labs reviewed continue current regimen patient is improving gradually Plan for discharge to home on Tuesday
[2019-01-28] MEDS: LEVOFLOXACIN 750 MG TAB PO SCH (16:48)
[2019-01-28] MEDS: SERTRALINE 100 MG TAB PO SCH (16:48)
[2019-01-28] MEDS: ATORVASTATIN 20 MG TAB PO SCH (20:29)
[2019-01-28] MEDS: MONTELUKAST 10 MG TAB PO SCH (20:29)
[2019-01-28] MEDS: SPIRONOLACTONE 25 MG TAB PO SCH (20:30)
[2019-01-29] MEDS: methylPREDNISolone SOD SUCCI 125 MG/2 ML VIAL IV SCH (05:31)
[2019-01-29] MEDS: LEVOTHYROXINE 100 MCG TAB PO SCH (05:31)
[2019-01-29] MEDS: SYMBICORT 160-4.5 MCG INHALER INHALATION SCH (08:00)
[2019-01-29] MEDS: IPRATROPIUM-ALBUTEROL 3 ML NEB INHALATION SCH ×3 (08:00→15:42)
[2019-01-29 08:26] LABS: Anisocytosis Slight; Basophils % (A) 0 %; Eosinophils % (A) 0 %; HCT 41.3 % (34.0-46.0); HGB 12.9 gm/dL (11.4-16.0); Hypochromasia Slight; Lymphocytes # (A) 0.7 k/uL (1.0-4.8); Lymphocytes % (A) 6 %; MCH 25.8 pg (25.0-35.0); MCHC 31.2 g/dL (31.0-37.0); MCV 82.9 fL (80.0-100.0); Mean Platelet Volume 7.1; Monocytes # (A) 0.7 k/uL (0-1.0); Monocytes % (A) 6 %; Neutrophils # (A) 9.2 k/uL (1.3-7.7); Neutrophils % (A) 87 %; Platelet Count 413 k/uL (150-450); RBC 4.98 m/uL (3.80-5.40); WBC 10.6 k/uL (3.8-10.6)
[2019-01-29] MEDS: POTASSIUM CHLORIDE ER 10 MEQ TAB.ER.PRT PO SCH (08:33)
[2019-01-29] MEDS: guaiFENesin 600 MG TABLET.ER PO SCH (08:33)
[2019-01-29] MEDS: DOCUSATE 100 MG CAP PO SCH (08:33)
[2019-01-29] MEDS: ENOXAPARIN 40 MG/0.4 ML SYRINGE SQ SCH (08:33)
[2019-01-29] MEDS: METOPROLOL SUCCINATE (ER) 25 MG TAB.ER.24H PO SCH (08:33)
[2019-01-29] MEDS: PANTOPRAZOLE 40 MG TABLET PO SCH (08:33)
[2019-01-29] MEDS: FUROSEMIDE 20 MG TAB PO SCH (08:33)
[2019-01-29] MEDS: ARIPiprazole 5 MG TAB PO SCH (08:34)
[2019-01-29] MEDS: ALPRAZolam 0.5 MG TAB PO PRN (08:37)
[2019-01-29 08:42] LABS: Calcium 10.1 mg/dL (8.4-10.2); Total Bilirubin 0.7 mg/dL (0.2-1.3); Total Protein 6.8 g/dL (6.3-8.2)
[2019-01-29] MEDS ORDERED: predniSONE 20 MG TAB PO SCH (10:00)
[2019-01-29] MEDS ORDERED: LACTULOSE 20 GM/30 ML CUP PO ONE (11:16)
[2019-01-29 11:24] VITALS: BMI 29.9
--- NOTE | 2019-01-29 12:36 | P.PN ---
Subjective Progress Note Date: 01/29/19 Principal diagnosis: Acute COPD exacerbation Patient was reevaluated today on 01/29/2019, patient is feeling much better, breathing a lot easier, no cough no wheezing no shortness of breath, apparently significant improvement noted since admission. Has been treated with bronchodilators, antibiotics, and steroids. She is now switched to oral prednisone. She was seen by Dr. Jones yesterday, and he felt that the patient could be discharged home today. Indeed upon my physical examination, patient sounded fairly clear, and I cleared the patient for discharge today. Objective - Vital Signs Vital signs: Vital Signs Temp 97.6 F 01/29/19 05:00 Pulse 98 01/29/19 11:57 Resp 16 01/29/19 05:00 BP 114/73 01/29/19 05:00 Pulse Ox 98 01/29/19 09:55 Intake & Output 01/28/19 01/29/19 01/29/19 18:59 06:59 18:59 Intake Total 240 Balance 240 Weight 76.6 kg 76.6 kg Intake: Oral 240 Other: Voiding Method Toilet Toilet - Exam Physical Exam: Revealed a 63-year-old female in no distress. Head: Atraumatic, normocephalic. HEENT:[Neck is supple.] [No neck masses.] [No thyromegaly.] [No JVD.] PERRLA, EOMI, no icterus. Chest: [Clear throughout, no crackles, no rhonchi, no wheezes.] Cardiac Exam: [Normal S1 and S2, no S3 gallop, no murmur.] Abdomen: [Soft, nontender, no megaly, no rebound, no guarding, normal bowel sounds.] Extremities: [No clubbing, no edema, no cyanosis.] Neurological Exam: [No focal neurologic deficit.] Alert oriented 3. Psychiatric: Normal mood affect and mental status examination. Skin: No rashes. - Labs CBC & Chem 7: 01/29/19 08:00 01/29/19 08:00 Labs: Abnormal Lab Results - Last 24 Hours (Table) 01/29/19 01/29/19 Range/Units 08:00 08:00 RDW 18.0 H (11.5-15.5) % Neutrophils # 9.2 H (1.3-7.7) k/uL Lymphocytes # 0.7 L (1.0-4.8) k/uL BUN 32 H (7-17) mg/dL Glucose 163 H (74-99) mg/dL AST 37 H (14-36) U/L Microbiology - Last 24 Hours (Table) 01/23/19 17:34 Blood Culture - Preliminary Blood No Growth after 120 hours Assessment and Plan Assessment: Impression: 1 acute COPD exacerbation, significantly improved. 2 history of bronchitis obliterans with organizing pneumonia treated previously in the past with steroids, presently inactive. 3 previous splenectomy 4 history of Hodgkin's lymphoma status post chemo and radiation therapy in 1978 5 multiple comorbidities including hypertension hyperlipidemia hypothyroidism chronic back pain and compression fracture of T8, obstructive sleep apnea syndrome, Recommendation: I fully agree with the present treatment plan, switch patient to oral prednisone, and consider discharge planning today, taper the prednisone from 40 mg down to 0 mg over the next 2 weeks. Patient normally sees Dr. Valadez in the office, she can follow-up with him in few days. Time with Patient: Less than 30
[2019-01-29 12:45] VITALS: BP 100/49; PULSE 105; RESP 18; TEMP 97.9
--- NOTE | 2019-01-29 12:54 | P.DS ---
Providers Date of admission: 01/25/19 14:45 Expected date of discharge: 01/29/19 Attending physician: Michelle Naqvi Consults: 01/23/19 19:47 Consult Physician Stat Consulting Provider: Walt Valadez Consult Reason/Comments: Chronic pulmonary disease management Do you want consulting provider notified?: Yes 01/24/19 13:23 Consult Physician Routine Consulting Provider: Amber Jasso Consult Reason/Comments: CHF exacerbation Do you want consulting provider notified?: Yes Primary care physician: Michelle Naqvi [facility] Course: Discharge diagnosis 1. Acute on chronic diastolic CHF exacerbation: Echo in May showing an EF of 50-55% 2. Acute COPD exacerbation 3. Acute tracheobronchitis 5. History of bronchiolitis obliternas organizing pneumonia. 6. History of Hodgkin's lymphoma status post chemoradiation 1978 7. History of breast cancer status post cystectomy 8. History of renal cancer status post partial nephrectomy 9. History of hypertension 10. History of hyperlipidemia 11. History of T8 compression fracture 12. History of hypothyroidism 13. Chronic persistent asthma 14. Shortness of breath multifactorial secondary to CHF exacerbation and COPD exacerbation Hospital course This is a 63-year-old female patient who presented to the hospital for complaints of increasing shortness of breath. Patient also reports she has broken rib on her right side and she is experiencing discomfort. 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 Patient was on high-dose steroids for 1 year. Additional medical history includes Hodgkin's lymphoma status post chemoradiation in 1978, history of breast cancer status post mastectomy, renal cancer status post partial nephrectomy, essential hypertension, hyperlipidemia, T compression fracture, hypothyroidism, chronic persistent asthma, sinus headache, chronic hypoxic respiratory failure and congestive heart failure. Chest x-ray completed in ER showing pulmonary fibrosis. There is probably mild congestive heart failure. Left pleural effusion is increased compared to old exam. Old granulomatous disease. Pulmonary congestion unchanged. EKG completed showing sinus tachycardia with left bundle branch block. D-dimer mildly elevated at 0.47. Discussed with Dr. Valadez and pulmonary services. At this time will order Lovenox 1 mg/kg twice a day and await for pulmonary input. At this time patient states some improvement with shortness of breath. Patient denies nausea vomiting or diarrhea. Patient denies any urinary burning or frequency. On 01/25/2019 patient remains alert and oriented 3. Patient feels slightly improved from yesterday regards to shortness breath. Patient recent IV Lasix IV steroids and antibiotics. CTA has been ordered per cardiology. Patient denies chest pain. Patient does complain of some SOB with activity. Denies nausea vomitting or diarrhea. On 01/26/2019 patient remains alert and oriented 3. CTA of chest performed yesterday showing no evidence of pulmonary embolism. At this time patient remains on IV steroids, IV Lasix and Levaquin for antibiotic. Patient reports that she still pretty short of breath with activity. Patient may require home oxygen. Home oxygen test be performed. At this time patient denies nausea vomiting or diarrhea. Patient denies any urinary burning or frequency. On 01/27/2019 patient was seen and examined on the medical floor she is alert and oriented 3 in no apparent distress she is still complaining of severe shortness of breath with any activity she is comfortable at rest with oxygen otherwise she denies any complaints there is no fever or chills no headache or dizziness no chest pain no shortness of breath no nausea or vomiting no abdominal pain no diarrhea and no urinary symptoms. On 01/28/2019 patient is doing better she is alert and oriented 3 her shortness of breath has been improving she is still having occasional cough otherwise she denies any complaints there is no fever or chills no headache or dizziness no chest pain no no nausea or vomiting no abdominal pain no diarrhea and no urinary symptoms 01/29/2019 patient's shortness of breath has improved after treatment of her COPD exacerbation and CHF exacerbation. Patient followed by pulmonary and cardiology services. She's treated with IV steroids bronchodilators and antibiotics for her COPD exacerbation and bronchitis. CHF exacerbation was treated with the IV Lasix. Discussed with cardiology nurse practitioner patient was switched back to her Lasix 40 mg twice a day home dose. And she'll continue prednisone taper at discharge. Antibiotics were switched to Ceftin due to the Levaquin possibly causing prolonged QT interval due to interaction with Symbicort. She'll continue Ceftin for 3 more days. She'll follow-up with cardiology and pulmonary within 1 week. Follow up with Dr. Naqvi in 1 week. Patient is medical stable for discharge symptoms have improved. Note that she does have some sinus tachycardia on monitor with ambulating heart rate did get to 119. She'll continue with her metoprolol 25 mg daily extended release. No further adjustments need to done. Heart rate with resting was in the 90s. Patient does not require home O2 after ambulating off oxygen she was satting around 93%. Patient is medically stable for discharge I performed an examination of the patient and discussed their management with the physician [employer] Worker. I have reviewed the Physician [employer] Worker's notes and agree with the documented findings and plan of care Patient Condition at Discharge: Stable Plan - Discharge Summary Discharge Rx Participant: Yes New Discharge Prescriptions: New Cefuroxime Axetil [Ceftin] 500 mg PO BID 3 Days #6 tab guaiFENesin [Mucinex] 600 mg PO Q12HR #10 tablet.er predniSONE 10 mg PO DIRECTED #30 tab Simvastatin [Zocor] 40 mg PO HS #30 tab Continue Budesonide-Formot 160-4.5 Mcg [Symbicort 160-4.5 Mcg Inhaler] 2 puff INHALATION RT-BID Sertraline [Zoloft] 200 mg PO AC-SUPPER Montelukast [Singulair] 10 mg PO HS Metoprolol Succinate (ER) [Toprol XL] 25 mg PO DAILY Levothyroxine Sodium [Synthroid] 100 mcg PO DAILY Albuterol Sulfate [Proair Hfa] 2 puff INHALATION RT-Q6H PRN PRN Reason: Shortness Of Breath Ranitidine HCl [Zantac] 150 mg PO HS PRN PRN Reason: Heartburn Acyclovir [Zovirax] 1 applic TOPICAL 5XD PRN PRN Reason: Cold Sores Acyclovir 400 mg PO DAILY PRN PRN Reason: Cold Sores Cetirizine HCl [Zyrtec] 10 mg PO HS PRN PRN Reason: Allergy Symptoms ALPRAZolam [Xanax] 0.5 mg PO Q8H PRN PRN Reason: Anxiety Omeprazole 40 mg PO BID Ergocalciferol [Vitamin D2 (DRISDOL)] 50,000 unit PO SA Ipratropium-Albuterol Nebulize [Duoneb 0.5 mg-3 mg/3 ml Soln] 3 ml INHALATION RT-QID ampul.neb Potassium Chloride [K-Tab ER] 10 meq PO DAILY Spironolactone [Aldactone] 25 mg PO HS Furosemide [Lasix] 40 mg PO BID@0900,1600 #60 tab ARIPiprazole [Abilify] 5 mg PO DAILY Ondansetron [Zofran] 1 tab PO Q6HR PRN PRN Reason: Nausea Discharge Medication List Budesonide-Formot 160-4.5 Mcg [Symbicort 160-4.5 Mcg Inhaler] 2 puff INHALATION RT-BID 10/05/16 [History] Levothyroxine Sodium [Synthroid] 100 mcg PO DAILY 10/05/16 [History] Metoprolol Succinate (ER) [Toprol XL] 25 mg PO DAILY 10/05/16 [History] Montelukast [Singulair] 10 mg PO HS 10/05/16 [History] Sertraline [Zoloft] 200 mg PO AC-SUPPER 10/05/16 [History] Albuterol Sulfate [Proair Hfa] 2 puff INHALATION RT-Q6H PRN 04/06/17 [History] Acyclovir 400 mg PO DAILY PRN 05/13/17 [History] Acyclovir [Zovirax] 1 applic TOPICAL 5XD PRN 05/13/17 [History] Cetirizine HCl [Zyrtec] 10 mg PO HS PRN 05/13/17 [History] Ranitidine HCl [Zantac] 150 mg PO HS PRN 05/13/17 [History] ALPRAZolam [Xanax] 0.5 mg PO Q8H PRN 06/19/18 [History] Ergocalciferol [Vitamin D2 (DRISDOL)] 50,000 unit PO SA 06/19/18 [History] Omeprazole 40 mg PO BID 06/19/18 [History] Ipratropium-Albuterol Nebulize [Duoneb 0.5 mg-3 mg/3 ml Soln] 3 ml INHALATION RT -QID ampul.neb 07/09/18 [Rx] Potassium Chloride [K-Tab ER] 10 meq PO DAILY 09/13/18 [History] Spironolactone [Aldactone] 25 mg PO HS 09/13/18 [History] Furosemide [Lasix] 40 mg PO BID@0900,1600 #60 tab 09/19/18 [Rx] ARIPiprazole [Abilify] 5 mg PO DAILY 01/23/19 [History] Ondansetron [Zofran] 1 tab PO Q6HR PRN 01/24/19 [History] Cefuroxime Axetil [Ceftin] 500 mg PO BID 3 Days #6 tab 01/29/19 [Rx] Simvastatin [Zocor] 40 mg PO HS #30 tab 01/29/19 [Rx] guaiFENesin [Mucinex] 600 mg PO Q12HR #10 tablet.er 01/29/19 [Rx] predniSONE 10 mg PO DIRECTED #30 tab 01/29/19 [Rx] Follow up Appointment(s)/Referral(s): Amber Jasso MD [STAFF PHYSICIAN] - 2 Weeks [facility], [NON-STAFF] - 1-2 Days Michelle Naqvi MD [Primary Care Provider] - 1 Week Jenny Carmona [NON-STAFF] - As Needed Walt Valadez DO [Doctor of Osteopathic Medicine] - 1 Week Activity/Diet/Wound Care/Special Instructions: Diet: cardiac Activity: as tolerated Discharge Disposition: HOME WITH HOME HEALTH SERVICES
== END 2019-01-29 15:20 | disposition home health service (06) | DRG 292 ==
LOC: EC 16:40 → 1SOBS 19:47 → OBSVTOIN 01-25 14:45 → 3NMEDONC 01-26 14:41
PROVIDERS: ADMIT Internal Medicine; ATTEND Internal Medicine
DX: I11.0 Hypertensive heart disease with heart failure (principal); J44.0 Chronic obstructive pulmonary disease with (acute) lower respiratory infection; J44.1 Chronic obstructive pulmonary disease with (acute) exacerbation; J96.11 Chronic respiratory failure with hypoxia; M48.54XA Collapsed vertebra, not elsewhere classified, thoracic region, initial encounter for fracture; E03.9 Hypothyroidism, unspecified; E78.5 Hyperlipidemia, unspecified; G47.33 Obstructive sleep apnea (adult) (pediatric); G89.29 Other chronic pain; I08.3 Combined rheumatic disorders of mitral, aortic and tricuspid valves; I27.20 Pulmonary hypertension, unspecified; I42.9 Cardiomyopathy, unspecified; I44.7 Left bundle-branch block, unspecified; I50.43 Acute on chronic combined systolic (congestive) and diastolic (congestive) heart failure; I70.0 Atherosclerosis of aorta; J20.9 Acute bronchitis, unspecified; J84.10 Pulmonary fibrosis, unspecified; K21.9 Gastro-esophageal reflux disease without esophagitis; Z99.89 Dependence on other enabling machines and devices; M81.0 Age-related osteoporosis without current pathological fracture; R79.1 Abnormal coagulation profile; Z79.51 Long term (current) use of inhaled steroids; Z79.52 Long term (current) use of systemic steroids; Z79.890 Hormone replacement therapy; Z79.899 Other long term (current) drug therapy; Z82.49 Family history of ischemic heart disease and other diseases of the circulatory system; Z85.3 Personal history of malignant neoplasm of breast; Z85.528 Personal history of other malignant neoplasm of kidney; Z85.72 Personal history of non-Hodgkin lymphomas; Z87.891 Personal history of nicotine dependence; Z90.12 Acquired absence of left breast and nipple; Z90.5 Acquired absence of kidney; Z90.710 Acquired absence of both cervix and uterus; Z90.81 Acquired absence of spleen; Z92.21 Personal history of antineoplastic chemotherapy; Z92.3 Personal history of irradiation; Z96.1 Presence of intraocular lens
CPT/HCPCS: 36415; 71046; 71275; 80053; 81001; 82550; 83880; 84484; 85025; 85379; 85610; 85730; 87040; 93005; 94640; 94760; 96374; 99285

== ENCOUNTER 2019-02-06 10:11 | Inpatient (IN) | payer BC ==
[2019-02-06] MEDS ORDERED: KETOROLAC 60 MG/2 ML VIAL IVP STA (10:43)
--- NOTE | 2019-02-06 10:46 | ED ---
General Adult HPI - General Chief complaint: Chest Pain Stated complaint: RT SIDE CHEST/BACK PAIN, Hx CHF Time Seen by Provider: 02/06/19 10:15 Source: patient, RN notes reviewed Mode of arrival: wheelchair Limitations: no limitations - History of Present Illness Initial comments: This is a 63-year-old female presents emergency department with past medical history significant for congestive heart.. Patient comes in today stating that she vomited 2 days ago and vomited again yesterday. Patient states after that she started having some right-sided rib pain. Patient states movement makes it worse lying on the right side makes it worse. Patient states she is always short of breath and she is no more short of breath today than she has been. Patient denies any anterior chest pain. Patient denies any palpations. Patient denies any recent fever chills or cough. Patient denies any lightheadedness dizziness or near syncopal episode. Patient denies headache patient denies any numbness or focal weakness per patient denies any abdominal pain. Patient states she was nauseated last 2 days but is not nauseated currently. Patient denies any diarrhea. The legs or calf tenderness. - Related Data Home Medications Medication Instructions Recorded Confirmed Budesonide-Formot 160-4.5 Mcg 2 puff INHALATION RT-BID 10/05/16 02/06/19 [Symbicort 160-4.5 Mcg Inhaler] Levothyroxine Sodium [Synthroid] 100 mcg PO DAILY 10/05/16 02/06/19 Metoprolol Succinate (ER) [Toprol 25 mg PO DAILY 10/05/16 02/06/19 XL] Montelukast [Singulair] 10 mg PO HS 10/05/16 02/06/19 Sertraline [Zoloft] 200 mg PO AC-SUPPER 10/05/16 02/06/19 Albuterol Sulfate [Proair Hfa] 2 puff INHALATION RT-Q6H PRN 04/06/17 02/06/19 Acyclovir 400 mg PO DAILY PRN 05/13/17 02/06/19 Acyclovir [Zovirax] 1 applic TOPICAL 5XD PRN 05/13/17 02/06/19 Cetirizine HCl [Zyrtec] 10 mg PO HS PRN 05/13/17 02/06/19 Ranitidine HCl [Zantac] 150 mg PO HS PRN 05/13/17 02/06/19 ALPRAZolam [Xanax] 0.5 mg PO Q8H PRN 06/19/18 02/06/19 Ergocalciferol [Vitamin D2 50,000 unit PO SA 06/19/18 02/06/19 (DRISDOL)] Omeprazole 40 mg PO BID 06/19/18 02/06/19 Potassium Chloride [K-Tab ER] 10 meq PO DAILY 09/13/18 02/06/19 Spironolactone [Aldactone] 25 mg PO HS 09/13/18 02/06/19 ARIPiprazole [Abilify] 5 mg PO DAILY 01/23/19 02/06/19 Ondansetron [Zofran] 1 tab PO Q6HR PRN 01/24/19 02/06/19 predniSONE See Taper PO DIRECTED 02/06/19 02/06/19 Previous Rx's Medication Instructions Recorded Ipratropium-Albuterol Nebulize 3 ml INHALATION RT-QID ampul.neb 07/09/18 [Duoneb 0.5 mg-3 mg/3 ml Soln] Furosemide [Lasix] 40 mg PO BID@0900,1600 #60 tab 09/19/18 Simvastatin [Zocor] 40 mg PO HS #30 tab 01/29/19 guaiFENesin [Mucinex] 600 mg PO Q12HR #10 tablet.er 01/29/19 Allergies Allergy/AdvReac Type Severity Reaction Status Date / Time No Known Allergies Allergy Verified 02/06/19 10:51 Review of Systems ROS Statement: Those systems with pertinent positive or pertinent negative responses have been documented in the HPI. ROS Other: All systems not noted in ROS Statement are negative. 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 CHF, echo showed EF 50-55%, anemia, multiple thoracic compression fra ctures with T8 being worse, herpes simplex type I L buttock which was tx and pt states it is gone now. 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 History of Any Multi-Drug Resistant Organisms: None Reported Past Surgical History: Adenoidectomy, Breast Surgery, Section, Hysterectomy, Orthopedic Surgery, Tonsillectomy Additional Past Surgical History / Comment(s): Spleenectomy, laparotomy, colonoscopy, EGD, bilateral 5th toe surgery for spurs, L breast mastectomy with breast reconstruction, bronchoscopy/lung bx, rt kidney partial nephrectomy, bilateral cataract removals with lens implants. Past Anesthesia/Blood Transfusion Reactions: No Reported Reaction Additional Past Anesthesia/Blood Transfusion Reaction / Comment(s): clausterphobia (mri's) Past Psychological History: Anxiety, Depression Smoking Status: Former smoker Past Alcohol Use History: Occasional Past Drug Use History: None Reported - Past Family History Mother Family Medical History: Osteoarthritis (OA) Additional Family Medical History / Comment(s): glaucoma Brother(s) Additional Family Medical History / Comment(s): MS Father Family Medical History: Liver Disease, Myocardial Infarction ([place]) Additional Family Medical History / Comment(s): age 70 -mi, alcoholic General Exam - General Exam Comments Initial Comments: GENERAL: Patient is well-developed and well-nourished. Patient is nontoxic and well- hydrated and is in mild distress. ENT: Neck is soft and supple. No significant lymphadenopathy is noted. Oropharynx is clear. Moist mucous membranes. Neck has full range of motion without elic iting any pain. EYES: The sclera were anicteric and conjunctiva were pink and moist. Extraocular movements were intact and pupils were equal round and reactive to light. Eyelids were unremarkable. PULMONARY: Unlabored respirations. Good breath sounds bilaterally. No audible rales rhonchi or wheezing was noted. CARDIOVASCULAR: There is a regular rate and rhythm without any murmurs gallops or rubs. ABDOMEN: Soft and nontender with normal bowel sounds. SKIN: Skin is clear with no lesions or rashes and otherwise unremarkable. NEUROLOGIC: Patient is alert and oriented x3. Cranial nerves II through XII are grossly intact. Motor and sensory are also intact. Normal speech, volume and content. Symmetrical smile. MUSCULOSKELETAL: Normal extremities with adequate strength and full range of motion. No lower extremity swelling or edema. No calf tenderness. LYMPHATICS: No significant lymphadenopathy is noted PSYCHIATRIC: Normal psychiatric evaluation. Limitations: no limitations Course Vital Signs 02/06/19 02/06/19 10:20 10:59 Temperature 97.6 F Pulse Rate 84 89 Respiratory 18 18 Rate Blood Pressure 96/63 100/58 O2 Sat by Pulse 99 95 Oximetry Medical Decision Making - Medical Decision Making EKG shows a normal sinus rhythm 80 bpm NM interval 152 QRS is 144 QT interval 404 QTC is 48. Patient's EKG shows a left bundle branch block. This EKG is compared to an old EKG and there is a left bundle branch block on the old EKG Patient's chest x-ray shows questionable infiltrate. I started the patient on Rocephin I ordered a blood culture and ordered a lactic acid at this time. Spoke with Dr. Naqvi he agreed to admit the patient admitted the patient I consult Kathe. - Lab Data Result diagrams: 02/06/19 10:25 02/06/19 10:25 Lab Results 02/06/19 02/06/19 02/06/19 Range/Units 10:25 10:25 10:25 WBC 21.5 H (3.8-10.6) k/uL RBC 4.83 (3.80-5.40) m/uL Hgb 12.7 (11.4-16.0) gm/dL Hct 40.1 (34.0-46.0) % MCV 82.9 (80.0-100.0) fL MCH 26.2 (25.0-35.0) pg MCHC 31.6 (31.0-37.0) g/dL RDW 17.8 H (11.5-15.5) % Plt Count 354 (150-450) k/uL Neutrophils % 85 % Lymphocytes % 9 % Monocytes % 4 % Eosinophils % 0 % Basophils % 0 % Neutrophils # 18.3 H (1.3-7.7) k/uL Lymphocytes # 2.0 (1.0-4.8) k/uL Monocytes # 0.9 (0-1.0) k/uL Eosinophils # 0.1 (0-0.7) k/uL Basophils # 0.0 (0-0.2) k/uL Hypochromasia Slight Anisocytosis Slight Sodium 138 (137-145) mmol/L Potassium 4.2 (3.5-5.1) mmol/L Chloride 99 (98-107) mmol/L Carbon Dioxide 34 H (22-30) mmol/L Anion Gap 5 mmol/L BUN 26 H (7-17) mg/dL Creatinine 0.65 (0.52-1.04) mg/dL Est GFR (CKD-EPI)AfAm >90 (>60 ml/min/1.73 sqM) Est GFR (CKD-EPI)NonAf >90 (>60 ml/min/1.73 sqM) Glucose 78 (74-99) mg/dL Calcium 9.3 (8.4-10.2) mg/dL Magnesium 1.9 (1.6-2.3) mg/dL Total Bilirubin 0.7 (0.2-1.3) mg/dL AST 18 (14-36) U/L ALT 34 (9-52) U/L Alkaline Phosphatase 70 (38-126) U/L Troponin I <0.012 (0.000-0.034) ng/mL NT-Pro-B Natriuret Pep pg/mL Total Protein 6.2 L (6.3-8.2) g/dL Albumin 3.7 (3.5-5.0) g/dL 02/06/19 Range/Units 10:25 WBC (3.8-10.6) k/uL RBC (3.80-5.40) m/uL Hgb (11.4-16.0) gm/dL Hct (34.0-46.0) % MCV (80.0-100.0) fL MCH (25.0-35.0) pg MCHC (31.0-37.0) g/dL RDW (11.5-15.5) % Plt Count (150-450) k/uL Neutrophils % % Lymphocytes % % Monocytes % % Eosinophils % % Basophils % % Neutrophils # (1.3-7.7) k/uL Lymphocytes # (1.0-4.8) k/uL Monocytes # (0-1.0) k/uL Eosinophils # (0-0.7) k/uL Basophils # (0-0.2) k/uL Hypochromasia Anisocytosis Sodium (137-145) mmol/L Potassium (3.5-5.1) mmol/L Chloride (98-107) mmol/L Carbon Dioxide (22-30) mmol/L Anion Gap mmol/L BUN (7-17) mg/dL Creatinine (0.52-1.04) mg/dL Est GFR (CKD-EPI)AfAm (>60 ml/min/1.73 sqM) Est GFR (CKD-EPI)NonAf (>60 ml/min/1.73 sqM) Glucose (74-99) mg/dL Calcium (8.4-10.2) mg/dL Magnesium (1.6-2.3) mg/dL Total Bilirubin (0.2-1.3) mg/dL AST (14-36) U/L ALT (9-52) U/L Alkaline Phosphatase (38-126) U/L Troponin I (0.000-0.034) ng/mL NT-Pro-B Natriuret Pep 3680 pg/mL Total Protein (6.3-8.2) g/dL Albumin (3.5-5.0) g/dL Disposition Clinical Impression: Chest wall pain, Pneumonia Disposition: ADMITTED IP TO THIS HOSP Referrals: Michelle Naqvi MD [Primary Care Provider] - 1-2 days Time of Disposition: 13:09
[2019-02-06 11:11] LABS: Anisocytosis Slight; Basophils % (A) 0 %; Eosinophils # (A) 0.1 k/uL (0-0.7); Eosinophils % (A) 0 %; HCT 40.1 % (34.0-46.0); HGB 12.7 gm/dL (11.4-16.0); Hypochromasia Slight; Lymphocytes % (A) 9 %; MCH 26.2 pg (25.0-35.0); MCHC 31.6 g/dL (31.0-37.0); MCV 82.9 fL (80.0-100.0); Monocytes # (A) 0.9 k/uL (0-1.0); Monocytes % (A) 4 %; Neutrophils # (A) 18.3 k/uL (1.3-7.7); Neutrophils % (A) 85 %; Platelet Count 354 k/uL (150-450); RBC 4.83 m/uL (3.80-5.40); RDW 17.8 % (11.5-15.5); WBC 21.5 k/uL (3.8-10.6)
--- NOTE | 2019-02-06 11:19 | XR ---
EXAMINATION TYPE: XR chest 2V DATE OF EXAM: 02/06/2019 COMPARISON: 01/23/2019 HISTORY: Shortness of breath TECHNIQUE: Frontal and lateral views of the chest are obtained. FINDINGS: Scattered senescent parenchymal changes noted. Hyperinflation compatible with COPD. Stable left basilar pleural-parenchymal opacity which may reflect a combination of infiltrate, atelec tasis and pleural effusion. Underlying pulmonary arterial hypertension. Remote granulomatous disease. Heart size is stable. Mediastinal structures are stable and grossly unremarkable. No evidence for hilar prominence. Degenerative changes dorsal spine. Remote right-sided rib fractures. IMPRESSION: 1. Stable left basilar pleural-parenchymal opacity which may reflect a combination of infiltrate, ate lectasis and pleural effusion.
[2019-02-06 11:32] LABS: ALT 34 U/L (9-52); AST 18 U/L (14-36); Albumin 3.7 g/dL (3.5-5.0); Alkaline Phosphatase 70 U/L (38-126); Anion Gap 5 mmol/L; Blood Urea Nitrogen 26 mg/dL (7-17); Calcium 9.3 mg/dL (8.4-10.2); Carbon Dioxide 34 mmol/L (22-30); Chloride 99 mmol/L (98-107); Glucose 78 mg/dL (74-99); Magnesium 1.9 mg/dL (1.6-2.3); Potassium 4.2 mmol/L (3.5-5.1); Sodium 138 mmol/L (137-145); Total Bilirubin 0.7 mg/dL (0.2-1.3); Total Protein 6.2 g/dL (6.3-8.2)
[2019-02-06] MEDS ORDERED: cefTRIAXone IN SWFI 1,000 MG/10 ML SYRINGE IVP STA (13:05)
[2019-02-06] MEDS ORDERED: PNEUMONIA PROTOCOL UTILIZED 1 EACH MISC PO PRN (13:14)
[2019-02-06 14:42] LABS: INR 0.9 (<1.2); Partial Thromboplastin Time 23.2 sec (22.0-30.0); Prothrombin Time 9.8 sec (9.0-12.0)
[2019-02-06] MEDS ORDERED: ACETAMINOPHEN TAB 325 MG TAB PO PRN (15:20)
[2019-02-06] MEDS ORDERED: ONDANSETRON 4 MG/2 ML VIAL IVP PRN (15:20)
[2019-02-06] MEDS: IPRATROPIUM-ALBUTEROL 3 ML NEB INHALATION SCH ×2 (15:48→19:37)
--- NOTE | 2019-02-06 15:53 | XR ---
EXAMINATION TYPE: XR ribs RT DATE OF EXAM: 02/06/2019 CLINICAL HISTORY: Right side pain, mid rib area, anterior and lateral 4 views of the right-sided ribs are submitted. Noted are fractures of right ribs 7 and 8 with mild ap parent callus formation suggesting a nonacute fractures although may be relatively recent. Correlate clinically. No additional fracture seen with certainty. No evidence for pneumothorax. Chronic senesce nt parenchymal changes noted. IMPRESSION: 1. Fractures of right ribs 7 and 8 of indeterminate age. Correlate clinically.
--- NOTE | 2019-02-06 15:54 | P.HPIM ---
History of Present Illness H&P Date: 02/06/19 Chief Complaint: Right-sided rib pain This is a 63-year-old female with a known past medical history of BOOP, Hodgkin's lymphoma status post chemoradiation in 1978, history of breast cancer status post mastectomy, renal cancer status post partial nephrectomy, hypertension, hyperlipidemia, T8 compression fracture, hypothyroidism, chronic persistent asthma, sinus headache, and congestive heart failure. Patient was just discharged from the hospital on January 29 and had been treated for congestive heart failure exacerbation COPD exacerbation and bronchitis. Patient reports completing her antibiotic treatment and had 2 days left of the prednisone taper. Patient reports 3 days ago had worsening right rib pain. She reports having this rib pain for a few weeks now. Yesterday the pain became so severe she had 2 episodes of vomiting. She took [place] with some relief. She came into the ER for further evaluation and treatment. Chest x-ray done in the ER had showed sta ble left basilar pleural-parenchymal opacity which may reflect a combination of infiltrate, atelectasis and pleural effusion. Patient started on Rocephin in the ER and pulmonary had been consulted. Chest x-ray also reported remote right-sided rib fractures. X-ray of the right ribs have been ordered to rule out an acute fracture. Patient denies any injury to the ribs. There is no skin rash or lesions. However patient has chronically been on steroids for her lung issues and does report a chronic cough. White count elevated at 21.5 but patient has been on prednisone at home. BUN 26 lactic 1.3 troponin negative. BNP elevated at 3680. Patient denies any fever, chills, sweats, bowel movement changes or urinary symptoms. She does admit to a mild cough nonproductive. Reports some shortness of breath but nothing too significant. However, she does report still being short of breath with ambulating. When the right rib pain becomes severe she also is short of breath. Review of Systems Please refer to HPI otherwise unremarkable Past Medical History Past Medical History: Asthma, Cancer, Heart Failure, COPD, GERD/Reflux, Osteoarthritis (OA), Sleep Apnea/CPAP/BIPAP, Thyroid Disorder Additional Past Medical History / Comment(s): BOOP, cardiomyopathy, cardiac murmur, anemia, past multiple thoracic compression fractures with T8 being worse, back pain, osteoporosis, R rib fracture, Hodgkins Lymphoma status post chemo and radiation chest area in 1978; L Breast CA-status post mastectomy(sx only), R renal carcinoma with partial nephrectomy, cervical cancer with surgery, ASHKAN with CPAP use, hypothyroid, hiatal hernia, sinus problems. History of Any Multi-Drug Resistant Organisms: None Reported Past Surgical History: Adenoidectomy, Breast Surgery, Section, Hysterectomy, Orthopedic Surgery, Tonsillectomy Additional Past Surgical History / Comment(s): Spleenectomy, laparotomy, colonoscopy, EGD, bilateral 5th toe surgery for spurs, L breast mastectomy with breast reconstruction, R breast implant since removed, bronchoscopy/lung bx, rt kidney partial nephrectomy, bilateral cataract removals with lens implants, [place]. Past Anesthesia/Blood Transfusion Reactions: No Reported Reaction Additional Past Anesthesia/Blood Transfusion Reaction / Comment(s): cl austerphobia (mri's) Smoking Status: Former smoker - Past Family History Mother Family Medical History: Osteoarthritis (OA) Additional Family Medical History / Comment(s): glaucoma Brother(s) Additional Family Medical History / Comment(s): MS Father Family Medical History: Liver Disease, Myocardial Infarction ([place]) Additional Family Medical History / Comment(s): age 70 -mi, alcoholic Medications and Allergies Home Medications Medication Instructions Recorded Confirmed Type Budesonide-Formot 160-4.5 Mcg 2 puff INHALATION RT-BID 10/05/16 02/06/19 History [Symbicort 160-4.5 Mcg Inhaler] Levothyroxine Sodium [Synthroid] 100 mcg PO DAILY 10/05/16 02/06/19 History Metoprolol Succinate (ER) [Toprol 25 mg PO DAILY 10/05/16 02/06/19 History XL] Montelukast [Singulair] 10 mg PO HS 10/05/16 02/06/19 History Sertraline [Zoloft] 200 mg PO AC-SUPPER 10/05/16 02/06/19 History Albuterol Sulfate [Proair Hfa] 2 puff INHALATION RT-Q6H PRN 04/06/17 02/06/19 History Acyclovir 400 mg PO DAILY PRN 05/13/17 02/06/19 History Acyclovir [Zovirax] 1 applic TOPICAL 5XD PRN 05/13/17 02/06/19 History Cetirizine HCl [Zyrtec] 10 mg PO HS PRN 05/13/17 02/06/19 History Ranitidine HCl [Zantac] 150 mg PO HS PRN 05/13/17 02/06/19 History ALPRAZolam [Xanax] 0.5 mg PO Q8H PRN 06/19/18 02/06/19 History Ergocalciferol [Vitamin D2 50,000 unit PO SA 06/19/18 02/06/19 History (DRISDOL)] Omeprazole 40 mg PO BID 06/19/18 02/06/19 History Ipratropium-Albuterol Nebulize 3 ml INHALATION RT-QID ampul.neb 07/09/18 02/06/19 Rx [Duoneb 0.5 mg-3 mg/3 ml Soln] Potassium Chloride [K-Tab ER] 10 meq PO DAILY 09/13/18 02/06/19 History Spironolactone [Aldactone] 25 mg PO HS 09/13/18 02/06/19 History Furosemide [Lasix] 40 mg PO BID@0900,1600 #60 tab 09/19/18 02/06/19 Rx ARIPiprazole [Abilify] 5 mg PO DAILY 01/23/19 02/06/19 History Ondansetron [Zofran] 1 tab PO Q6HR PRN 01/24/19 02/06/19 History Simvastatin [Zocor] 40 mg PO HS #30 tab 01/29/19 02/06/19 Rx guaiFENesin [Mucinex] 600 mg PO Q12HR #10 tablet.er 01/29/19 02/06/19 Rx predniSONE See Taper PO DIRECTED 02/06/19 02/06/19 History Allergies Allergy/AdvReac Type Severity Reaction Status Date / Time No Known Allergies Allergy Verified 02/06/19 10:51 Physical Exam Vitals: Vital Signs Temp Pulse Pulse Resp BP BP Pulse Ox 02/06/19 15:00 97.2 F L 97 17 126/71 96 02/06/19 14:18 92 20 110/95 96 02/06/19 10:59 89 18 100/58 95 02/06/19 10:20 97.6 F 84 18 96/63 99 Intake and Output 02/06/19 02/06/19 02/06/19 06:59 14:59 22:59 Other: Weight 76.657 kg Head normocephalic Neck supple Lungs diminished on the left mild wheeze expiratory on the right. No rashes or lesions noted along the right chest wall. Tenderness with palpation no bruising, abrasions noted Heart regular rate and rhythm S1-S2, no rub or gallop Abdomen is soft nontender nondistended positive bowel sounds no hepatosplenomegaly Extremities edema trace to +1 bilateral lower extremities Neuro alert and orientated to 3 Results CBC & Chem 7: 02/06/19 10:25 02/06/19 10:25 Labs: Abnormal Lab Results - Last 24 Hours (Table) 02/06/19 02/06/19 Range/Units 10:25 10:25 WBC 21.5 H (3.8-10.6) k/uL RDW 17.8 H (11.5-15.5) % Neutrophils # 18.3 H (1.3-7.7) k/uL Carbon Dioxide 34 H (22-30) mmol/L BUN 26 H (7-17) mg/dL Total Protein 6.2 L (6.3-8.2) g/dL Thrombosis Risk Factor Assmnt - Choose All That Apply Any of the Below Risk Factors Present?: Yes Each Factor Represents 1 point: Abnormal pulmonary function (COPD), Obesity (BMI >25), Serious lung disease incl. pneumonia (< 1month) Other Risk Factors: Yes Each Risk Factor Represents 2 Points: Age 61-74 years, Malignancy Other congenital or acquired thrombophilia - If yes, enter type in comment: No Thrombosis Risk Factor Assessment Total Risk Factor Score: 7 Thrombosis Risk Factor Assessment Level: High Risk Assessment and Plan Assessment: 1. Right rib pain : Check rib x-ray to rule out acute rib fracture. Patient denies any injury. And Dilaudid 0.5 mg IV every 4 hours as needed for pain 2. Possible pneumonia: Patient currently on Rocephin. Pulmonary on consult 3. Possible left pleural effusion. consult pulmonary service 4. Acute on Chronic systolic and diastolic CHF exacerbation: Echo in May shows an EF of 50-55%. Echo from cardiology office in September shows an EF of 45%. Start Lasix 20 mg IV every 8 hours. Consult cardiology. BNP 3680 5. History of COPD: Patient currently on prednisone taper for COPD exacerbation and bronchitis from recent hospitalization. Will resume the prednisone and nebulizer treatments. Patient does have some mild wheezing 6. History of bronchiolitis obliterans organizing pneumonia 7. History of Hodgkin's lymphoma status post chemoradiation 1978 8. History of breast cancer status post mastectomy 9. History of renal cancer status post partial nephrectomy 10. Hypertension 11. Hyperlipidemia 12. History of T8 compression fracture 13. Hypothyroidism 14. Chronic persistent asthma 15. Leukocytosis patient has been on prednisone. Continue to monitor. GI prophylaxis Protonix and DVT prophylaxis Lovenox Time with Patient: Greater than 30 (Greater than 50% of the total time spent in counseling and coordination of care.I performed an examination of the patient and discussed their management with the physician Production Engineer Track. I have reviewed the Physician Production Engineer Track's notes and agree with the documented findings and plan of care)
[2019-02-06] MEDS ORDERED: FUROSEMIDE 40 MG TAB PO SCH (16:00)
[2019-02-06] MEDS: PANTOPRAZOLE 40 MG TABLET PO SCH (16:32)
[2019-02-06] MEDS: FUROSEMIDE 10 MG/ML 2 ML VIAL IV SCH ×2 (16:32→23:31)
[2019-02-06] MEDS: SERTRALINE 100 MG TAB PO SCH (17:17)
[2019-02-06] MEDS: SYMBICORT 160-4.5 MCG INHALER INHALATION SCH (19:37)
[2019-02-06] MEDS: LORATADINE 10 MG TAB PO PRN (20:04)
[2019-02-06] MEDS: ATORVASTATIN 20 MG TAB PO SCH (20:04)
[2019-02-06] MEDS: SPIRONOLACTONE 25 MG TAB PO SCH (20:04)
[2019-02-06] MEDS: MONTELUKAST 10 MG TAB PO SCH (20:04)
[2019-02-06] MEDS: ALPRAZolam 0.5 MG TAB PO PRN (20:04)
[2019-02-06] MEDS: guaiFENesin 600 MG TABLET.ER PO SCH (20:04)
[2019-02-07] MEDS: HYDROmorphone 0.5 MG/0.5 ML SYRINGE IVP PRN ×4 (03:10→23:50)
[2019-02-07] MEDS: LEVOTHYROXINE 100 MCG TAB PO SCH (05:31)
[2019-02-07 07:36] LABS: Anisocytosis Slight; Basophils % (A) 0 %; Eosinophils # (A) 0.1 k/uL (0-0.7); Eosinophils % (A) 1 %; HCT 40.1 % (34.0-46.0); HGB 12.5 gm/dL (11.4-16.0); Hypochromasia Slight; Lymphocytes # (A) 2.4 k/uL (1.0-4.8); Lymphocytes % (A) 14 %; MCH 26.3 pg (25.0-35.0); MCHC 31.1 g/dL (31.0-37.0); MCV 84.7 fL (80.0-100.0); Mean Platelet Volume 6.1; Monocytes # (A) 0.8 k/uL (0-1.0); Monocytes % (A) 5 %; Neutrophils # (A) 13.5 k/uL (1.3-7.7); Neutrophils % (A) 80 %; Platelet Count 331 k/uL (150-450); RBC 4.74 m/uL (3.80-5.40); RDW 18.1 % (11.5-15.5)
[2019-02-07 07:49] LABS: Albumin 3.7 g/dL (3.5-5.0); Calcium 9.4 mg/dL (8.4-10.2); Potassium 4.4 mmol/L (3.5-5.1); Total Bilirubin 0.7 mg/dL (0.2-1.3); Total Protein 6.2 g/dL (6.3-8.2)
--- NOTE | 2019-02-07 08:10 | XR ---
EXAMINATION TYPE: XR chest 2V DATE OF EXAM: 02/07/2019 COMPARISON: 02/06/2019 HISTORY: Congestive heart failure and history of pneumonia. TECHNIQUE: Frontal and lateral views of the chest are obtained. FINDINGS: There is continued retrocardiac airspace disease with a small layering left pleural effusi on. Congestive heart failure is suspected with moderate interstitial pulmonary edema and pulmonary va scular congestion. Cardia mediastinal silhouette is enlarged. Granulomatous changes are seen of the m ediastinum. Again there are age-indeterminate fractures of right ribs 7 and 8. Surgical clips are see n in the left mid abdomen. IMPRESSION: Persistent interstitial edema and left pleural effusion with associated left basilar air space disease, likely atelectasis. Findings suggest underlying decompensated congestive heart failure .
[2019-02-07] MEDS: SYMBICORT 160-4.5 MCG INHALER INHALATION SCH ×2 (08:33→19:05)
[2019-02-07] MEDS: IPRATROPIUM-ALBUTEROL 3 ML NEB INHALATION SCH ×4 (08:34→19:05)
[2019-02-07] MEDS: ENOXAPARIN 40 MG/0.4 ML SYRINGE SQ SCH (08:41)
[2019-02-07] MEDS: PANTOPRAZOLE 40 MG TABLET PO SCH ×2 (08:42→16:25)
[2019-02-07] MEDS: FUROSEMIDE 10 MG/ML 2 ML VIAL IV SCH ×3 (08:42→23:12)
[2019-02-07] MEDS: guaiFENesin 600 MG TABLET.ER PO SCH (08:42)
[2019-02-07] MEDS: POTASSIUM CHLORIDE ER 10 MEQ TAB.ER.PRT PO SCH (08:42)
[2019-02-07] MEDS: ARIPiprazole 5 MG TAB PO SCH (08:42)
[2019-02-07] MEDS: METOPROLOL SUCCINATE (ER) 25 MG TAB.ER.24H PO SCH (08:42)
[2019-02-07] MEDS: predniSONE 10 MG TAB PO SCH (08:42)
--- NOTE | 2019-02-07 11:16 | P.PN ---
Subjective Progress Note Date: 02/07/19 This is a 63-year-old female with a known past medical history of BOOP, Hodgkin's lymphoma status post chemoradiation in 1978, history of breast cancer status post mastectomy, renal cancer status post partial nephrectomy, hypertension, hyperlipidemia, T8 compression fracture, hypothyroidism, chronic persistent asthma, sinus headache, and congestive heart failure. Patient was just discharged from the hospital on January 29 and had been treated for congestive heart failure exacerbation COPD exacerbation and bronchitis. Patient reports completing her antibiotic treatment and had 2 days left of the prednisone taper. Patient reports 3 days ago had worsening right rib pain. She reports having this rib pain for a few weeks now. Yesterday the pain became so severe she had 2 episodes of vomiting. She took [place] with some relief. She came into the ER for further evaluation and treatment. Chest x-ray done in the ER had showed stable left basilar pleural-parenchymal opacity which may reflect a combination of infiltrate, atelectasis and pleural effusion. Patient started on Rocephin in the ER and pulmonary had been consulted. Chest x-ray also reported remote right-sided rib fractures. X-ray of the right ribs have been ordered to rule out an acute fracture. Patient denies any injury to the ribs. There is no skin rash or lesions. However patient has chronically been on steroids for her lung issues and does report a chronic cough. White count elevated at 21.5 but patient has been on prednisone at home. BUN 26 lactic 1.3 troponin negative. BNP elevated at 3680. Patient denies any fever, chills, sweats, bowel movement changes or urinary symptoms. She does admit to a mild cough nonproductive. Reports some shortness of breath but nothing too significant. However, she does report still being short of breath with ambulating. When the right rib pain becomes severe she also is short of breath. On 02/07/2019 patient is alert and oriented 3 currently sitting up in chair. Patient states some improvement with shortness of breath. Patient remains on IV Lasix and prednisone. Placenta patient requesting ultrasound of gallbladder due to increased right upper quadrant pain radiating to back. On examination patient some tenderness noted to right upper quadrant. Patient denies nausea vomiting or diarrhea. Patient denies any urinary burning or frequency. Patient denies chest pain or shortness breath Objective - Vital Signs Vital signs: Vital Signs Temp 97.5 F L 02/07/19 06:47 Pulse 100 02/07/19 08:46 Resp 18 02/07/19 06:47 BP 113/57 02/07/19 06:47 Pulse Ox 95 02/07/19 08:34 Intake & Output 02/06/19 02/07/19 02/07/19 18:59 06:59 18:59 Intake Total 540 Balance 540 Weight 76.657 kg 77.5 kg Intake: Oral 540 Other: # Voids 1 2 - Exam Head normocephalic Neck supple Lungs diminished on the left mild wheeze expiratory on the right. No rashes or lesions noted along the right chest wall. Tenderness with palpation no bruising, abrasions noted Heart regular rate and rhythm S1-S2, no rub or gallop Abdomen is soft nontender nondistended positive bowel sounds no hepatosplenomegaly Extremities edema trace to +1 bilateral lower extremities Neuro alert and orientated to 3 - Labs CBC & Chem 7: 02/07/19 07:15 02/07/19 07:15 Labs: Abnormal Lab Results - Last 24 Hours (Table) 02/06/19 02/06/19 02/07/19 Range/Units 10:25 10:25 07:15 WBC 21.5 H 17.0 H (3.8-10.6) k/uL RDW 17.8 H 18.1 H (11.5-15.5) % Neutrophils # 18.3 H 13.5 H (1.3-7.7) k/uL Carbon Dioxide 34 H (22-30) mmol/L BUN 26 H (7-17) mg/dL Total Protein 6.2 L (6.3-8.2) g/dL 02/07/19 Range/Units 07:15 WBC (3.8-10.6) k/uL RDW (11.5-15.5) % Neutrophils # (1.3-7.7) k/uL Carbon Dioxide 32 H (22-30) mmol/L BUN 31 H (7-17) mg/dL Total Protein 6.2 L (6.3-8.2) g/dL Assessment and Plan Assessment: 1. Right rib pain : Chest x-ray completed showing fractures of right ribs 7 and 8 of indeterminate age. Correlate clinically. Patient denies any injury. And Dilaudid 0.5 mg IV every 4 hours as needed for pain. Patient expresses that she is worried that right sided pain could be from her gallbladder requesting gallbladder ultrasound. 2. Possible pneumonia: Patient currently on Rocephin. Pulmonary on consult 3. Possible left pleural effusion. consult pulmonary service 4. Acute on Chronic systolic and diastolic CHF exacerbation: Echo in May shows an EF of 50-55%. Echo from cardiology office in September shows an EF of 45%. Start Lasix 20 mg IV every 8 hours. Consult cardiology. BNP 3680 5. History of COPD: Patient currently on prednisone taper for COPD exacerbation and bronchitis from recent hospitalization. Will resume the prednisone and nebulizer treatments. Patient does have some mild wheezing 6. History of bronchiolitis obliterans organizing pneumonia 7. History of Hodgkin's lymphoma status post chemoradiation 1978 8. History of breast cancer status post mastectomy 9. History of renal cancer status post partial nephrectomy 10. Hypertension 11. Hyperlipidemia 12. History of T8 compression fracture 13. Hypothyroidism 14. Chronic persistent asthma 15. Leukocytosis patient has been on prednisone. Continue to monitor. White blood cell trending down to 17.0 GI prophylaxis Protonix and DVT prophylaxis Lovenox I performed an examination of the patient and discussed their management with the Nurse Practitioner. I have reviewed the Nurse Practitioner's notes and agree with the documented findings and plan of care
--- NOTE | 2019-02-07 13:36 | P.CRDCN ---
History of Present Illness History of present illness: This is a pleasant 63-year-old female past medical history significant for chronic systolic heart failure, pulmonary hypertension, valvular heart disease, hypertension, dyslipidemia, COPD, Hodgkins lymphoma in 1978 s/p radiaiton therapy and chronic left sided pleural effusion. She underwent cardiac catheterization in 2012 reveals normal coronary arteries. She follows in the off ice with Dr. Jasso. We have been asked to see her in consultation for symptoms suggestive of heart failure. She recently was admitted to the hospital with symptoms of fluid overload and heart failure. She was discharged home 01/29/2019. Since being home her breathing has been stable. She has chronic shortness of breath at rest and with exertion. She came to the hospital due to ongoing pain in the right anterior chest wall whenever she moves her right arm, raises her right arm above her head or excessive movement of the torso. The pain is not related to exertion, not associated with increased shortness of breath, no dizziness or palpitations. She has had some intermittent nausea and vomiting. Rib xray reveals fractures of the 7th and 8th rib of indeterminate age. She denies recent fall or trauma. She is seen and examined sitting up in the chair after having taken a shower. She is maintaining oxygen saturation on room air. She states she feels fatigued after this activity but not worse than usual. EKG reveals left bundle branch block. Consistent with previous EKGs. No acute changes. Chest x-ray reveals persistent interstitial edema and left pleural effusion. Laboratory data reviewed, WBC 17, hgb 12.5, plt 331, sodium 141, potassium 4.4, creatinine 0.87, cardiac enzymes negative x1, NTproBNP 3680. Current cardiac medications include Lasix 40 mg twice a day, Toprol 25 mg daily, atorvastatin 40 mg daiy and Aldactone 25 mg daily. Most recent echocardiogram obtained in the office September 2018 reveals impaired LV systolic function with ejection fraction 45%, grade 2 diastolic dysfunction, mild to moderate aortic regurgitation and moderate aortic stenosis with a mean gradient across the valve of 13 mmHg, moderate tricuspid regurgitation, severe pulmonary hypertension with a PSP of 75 mmHg, moderate pulmonic regurgitation and mild to moderate mitral regurgitation. At the time of my exam: CONSTITUTIONAL: Denies fever. Denies chills. EYES: Denies blurred vision. Denies vision changes. Denies eye pain. EARS, NOSE, MOUTH & THROAT: Denies headache. Denies sore throat. Denies ear pain. CARDIOVASCULAR: Denies chest pain. Complains of shortness of breath. Denies orthopnea. Denies PND. Denies palpitations. RESPIRATORY: Denies cough. GASTROINTESTINAL: Denies abdominal pain. Denies diarrhea. Denies constipation. Denies nausea. Denies vomiting. MUSCULOSKELETAL: Complains of right anterior chest wall, right shoulder and right arm pain. Worse with movement of right arm or torso. INTEGUMENTARY: Denies pruitis. Denies rash. NEUROLOGIC: Denies numbness. Denies tingling. Denies weakness. PSYCHIATRIC: Denies anxiety. Denies depression. ENDOCRINE: Denies fatigue. Denies weight change. Denies polydipsia. Denies polyurina. GENITOURINARY: Denies burning, hematuria or urgency with micturation. HEMATOLOGIC: Denies history of anemia. Denies bleeding. Blood pressure 113/57 heart rate 100 afebrile and maintaining oxygen saturation on room air GENERAL: This is a 63-year-old female in no apparent distress at the time of my examination. HEENT: Head is atraumatic, normocephalic. Pupils are equal, round. Sclerae anicteric. Conjunctivae are clear. Mucous membranes of the mouth are moist. Neck is supple. There is no jugular venous distention. No carotid bruit is heard. LUNGS: Course sounds throughout, no wheezes or rales. No chest wall tenderness is noted on palpation or with deep breathing. Diminished bilaterally. HEART: Regular rate and rhythm with systolic ejection murmur at the base, no rubs or gallops. S1 and S2 heard. ABDOMEN: Soft, nontender. Bowel sounds are heard. No organomegaly noted. EXTREMITIES: No lower extremity edema and no calf tenderness noted. VASCULAR: Radial and dorsalis pedis pulses palpated, no evidence of clubbing. NEUROLOGIC: Patient is awake, alert and oriented x3. ASSESSMENT Pneumonia, on rocephin Chronic systolic and diastolic heart failure Leukocytosis Severe pulmonary hypertension COPD Valvular heart disease Chest pain, atypical for angina with musculoskeletal features. Rib xray shows rib fracture of 7 & 8 of indeterminate age. Hypertension Dyslipidemia Nonischemic cardiomyopathy History of bronchiolitis obliterans with organizing pneumonia PLAN Continue current medical regimen. No evidence of angina or acute coronary syndrome. Follow up with Dr. Jasso upon discharge. Nurse Practitioner note has been reviewed, I agree with a documented findings and plan of care. Patient was seen and examined. Past Medical History Past Medical History: Asthma, Cancer, Heart Failure, COPD, GERD/Reflux, Osteoarthritis (OA), Sleep Apnea/CPAP/BIPAP, Thyroid Disorder Additional Past Medical History / Comment(s): BOOP, cardiomyopathy, cardiac murmur, anemia, past multiple thoracic compression fractures with T8 being worse, back pain, osteoporosis, R rib fracture, Hodgkins Lymphoma status post chemo and radiation chest area in 1978; L Breast CA-status post mastectomy(sx only), R renal carcinoma with partial nephrectomy, cervical cancer with surgery, [place] with CPAP use, hypothyroid, hiatal hernia, sinus problems. History of Any Multi-Drug Resistant Organisms: None Reported Past Surgical History: Adenoidectomy, Breast Surgery, Section, Hysterectomy, Orthopedic Surgery, Tonsillectomy Additional Past Surgical History / Comment(s): Spleenectomy, laparotomy, colon oscopy, EGD, bilateral 5th toe surgery for spurs, L breast mastectomy with breast reconstruction, R breast implant since removed, bronchoscopy/lung bx, rt kidney partial nephrectomy, bilateral cataract removals with lens implants, [place]. Past Anesthesia/Blood Transfusion Reactions: No Reported Reaction Additional Past Anesthesia/Blood Transfusion Reaction / Comment(s): clausterphobia (mri's) Smoking Status: Former smoker - Past Family History Mother Family Medical History: Osteoarthritis (OA) Additional Family Medical History / Comment(s): glaucoma Brother(s) Additional Family Medical History / Comment(s): MS Father Family Medical History: Liver Disease, Myocardial Infarction ([place]) Additional Family Medical History / Comment(s): age 70 -mi, alcoholic Medications and Allergies Home Medications Medication Instructions Recorded Confirmed Type Budesonide-Formot 160-4.5 Mcg 2 puff INHALATION RT-BID 10/05/16 02/06/19 History [Symbicort 160-4.5 Mcg Inhaler] Levothyroxine Sodium [Synthroid] 100 mcg PO DAILY 10/05/16 02/06/19 History Metoprolol Succinate (ER) [Toprol 25 mg PO DAILY 10/05/16 02/06/19 History XL] Montelukast [Singulair] 10 mg PO HS 10/05/16 02/06/19 History Sertraline [Zoloft] 200 mg PO AC-SUPPER 10/05/16 02/06/19 History Albuterol Sulfate [Proair Hfa] 2 puff INHALATION RT-Q6H PRN 04/06/17 02/06/19 History Acyclovir 400 mg PO DAILY PRN 05/13/17 02/06/19 History Acyclovir [Zovirax] 1 applic TOPICAL 5XD PRN 05/13/17 02/06/19 History Cetirizine HCl [Zyrtec] 10 mg PO HS PRN 05/13/17 02/06/19 History Ranitidine HCl [Zantac] 150 mg PO HS PRN 05/13/17 02/06/19 History ALPRAZolam [Xanax] 0.5 mg PO Q8H PRN 06/19/18 02/06/19 History Ergocalciferol [Vitamin D2 50,000 unit PO SA 06/19/18 02/06/19 History (DRISDOL)] Omeprazole 40 mg PO BID 06/19/18 02/06/19 History Ipratropium-Albuterol Nebulize 3 ml INHALATION RT-QID ampul.neb 07/09/18 02/06/19 Rx [Duoneb 0.5 mg-3 mg/3 ml Soln] Potassium Chloride [K-Tab ER] 10 meq PO DAILY 09/13/18 02/06/19 History Spironolactone [Aldactone] 25 mg PO HS 09/13/18 02/06/19 History Furosemide [Lasix] 40 mg PO BID@0900,1600 #60 tab 09/19/18 02/06/19 Rx ARIPiprazole [Abilify] 5 mg PO DAILY 01/23/19 02/06/19 History Ondansetron [Zofran] 1 tab PO Q6HR PRN 01/24/19 02/06/19 History Simvastatin [Zocor] 40 mg PO HS #30 tab 01/29/19 02/06/19 Rx guaiFENesin [Mucinex] 600 mg PO Q12HR #10 tablet.er 01/29/19 02/06/19 Rx predniSONE See Taper PO DIRECTED 02/06/19 02/06/19 History Allergies Allergy/AdvReac Type Severity Reaction Status Date / Time No Known Allergies Allergy Verified 02/06/19 10:51 Physical Exam Vitals: Vital Signs Temp Pulse Pulse Resp BP BP Pulse Ox 02/07/19 08:46 100 02/07/19 08:34 112 H 95 02/07/19 06:47 97.5 F L 87 18 113/57 94 L 02/06/19 21:00 97.5 F L 91 16 103/66 93 L 02/06/19 19:51 84 02/06/19 19:37 80 02/06/19 15:58 74 02/06/19 15:48 68 100 02/06/19 15:00 97.2 F L 97 17 126/71 96 02/06/19 14:18 92 20 110/95 96 Intake and Output 02/06/19 02/07/19 02/07/19 22:59 06:59 14:59 Intake Total 540 Balance 540 Intake: Oral 540 Other: # Voids 2 Weight 77.5 kg Results 02/07/19 07:15 02/07/19 07:15 Cardiac Enzymes 02/06/19 02/06/19 02/07/19 Range/Units 10:25 10:25 07:15 AST 18 18 (14-36) U/L Troponin I <0.012 (0.000-0.034) ng/mL Coagulation 02/06/19 Range/Units 14:13 PT 9.8 (9.0-12.0) sec APTT 23.2 (22.0-30.0) sec CBC 02/07/19 Range/Units 07:15 WBC 17.0 H (3.8-10.6) k/uL RBC 4.74 (3.80-5.40) m/uL Hgb 12.5 (11.4-16.0) gm/dL Hct 40.1 (34.0-46.0) % Plt Count 331 (150-450) k/uL Comprehensive Metabolic Panel 02/06/19 02/07/19 Range/Units 10:25 07:15 Sodium 138 141 (137-145) mmol/L Potassium 4.2 4.4 (3.5-5.1) mmol/L Chloride 99 100 (98-107) mmol/L Carbon Dioxide 34 H 32 H (22-30) mmol/L BUN 26 H 31 H (7-17) mg/dL Creatinine 0.65 0.87 (0.52-1.04) mg/dL Glucose 78 79 (74-99) mg/dL Calcium 9.3 9.4 (8.4-10.2) mg/dL AST 18 18 (14-36) U/L ALT 34 33 (9-52) U/L Alkaline Phosphatase 70 69 (38-126) U/L Total Protein 6.2 L 6.2 L (6.3-8.2) g/dL Albumin 3.7 3.7 (3.5-5.0) g/dL Current Medications Generic Name Dose Route Start Last Admin Trade Name Freq PRN Reason Stop Dose Admin Acetaminophen 650 mg 02/06/19 15:20 02/06/19 20:43 Tylenol Tab PO 650 mg Q6HR PRN Administration Fever and/ or Mild Pain Albuterol/Ipratropium 3 ml 02/06/19 16:00 02/07/19 08:34 Duoneb 0.5 Mg-3 Mg/3 Ml Soln INHALATION 3 ml RT-QID ERICA Administration Alprazolam 0.5 mg 02/06/19 15:15 02/06/19 20:04 Xanax PO 0.5 mg Q8H PRN Administration Anxiety Aripiprazole 5 mg 02/07/19 09:00 02/07/19 08:42 Abilify PO 5 mg DAILY ERICA Administration Atorvastatin Calcium 20 mg 02/06/19 21:00 02/06/19 20:04 Lipitor PO 20 mg HS ERICA Administration Budesonide/Formoterol Fumarate 2 puff 02/06/19 20:00 02/07/19 08:33 Symbicort 160-4.5 Mcg Inhaler INHALATION 2 puff RT-BID ERICA Administration Enoxaparin Sodium 40 mg 02/07/19 09:00 02/07/19 08:41 Lovenox SQ 40 mg DAILY ERICA Administration Ergocalciferol 50,000 unit 02/10/19 12:00 Vitamin D2 PO Sa@1200 ERICA Famotidine 20 mg 02/06/19 15:15 Pepcid PO HS PRN Heartburn Furosemide 20 mg 02/06/19 16:00 02/07/19 08:42 Lasix IV 20 mg Q8HR ERICA Administration Guaifenesin 600 mg 02/06/19 21:00 02/07/19 08:42 Mucinex PO 600 mg Q12HR ERICA Administration Hydromorphone HCl 0.5 mg 02/06/19 15:20 02/07/19 08:40 Dilaudid IVP 0.5 mg Q4HR PRN Administration Moderate Pain Ceftriaxone Sodium 1 gm/ 50 mls @ 100 mls/hr 02/07/19 09:00 02/07/19 08:42 Sodium Chloride IVPB 100 mls/hr Q24HR ERICA Administration Levothyroxine Sodium 100 mcg 02/07/19 06:30 02/07/19 05:31 Synthroid PO 100 mcg DAILY@0630 ERICA Administration Loratadine 10 mg 02/06/19 15:15 02/06/19 20:04 Claritin PO 10 mg HS PRN Administration Allergy Symptoms Metoprolol Succinate 25 mg 02/07/19 09:00 02/07/19 08:42 Toprol Xl PO 25 mg DAILY ERICA Administration Miscellaneous Information 1 each 02/06/19 13:14 Pneumonia Protocol Utilized PO ONCE PRN Per Protocol Montelukast Sodium 10 mg 02/06/19 21:00 02/06/19 20:04 Singulair PO 10 mg HS ERICA Administration Ondansetron HCl 4 mg 02/06/19 15:20 Zofran IVP Q6HR PRN Vomiting Pantoprazole Sodium 40 mg 02/06/19 17:30 02/07/19 08:42 Protonix PO 40 mg AC-BID ERICA Administration Potassium Chloride 10 meq 02/07/19 09:00 02/07/19 08:42 K-Dur 10 PO 10 meq DAILY ERICA Administration Prednisone 10 mg 02/07/19 09:00 02/07/19 08:42 PO 10 mg DAILY ERICA Administration Sertraline HCl 200 mg 02/06/19 17:30 02/06/19 17:17 Zoloft PO 200 mg AC-SUPPER ERICA Administration Spironolactone 25 mg 02/06/19 21:00 02/06/19 20:04 Aldactone PO 25 mg HS ERICA Administration Intake and Output 02/06/19 02/07/19 02/07/19 22:59 06:59 14:59 Intake Total 540 Balance 540 Intake: Oral 540 Other: # Voids 2 Weight 77.5 kg 02/07/19 07:15 02/07/19 07:15
[2019-02-07] MEDS: SERTRALINE 100 MG TAB PO SCH (16:25)
[2019-02-07] MEDS: ALPRAZolam 0.5 MG TAB PO PRN (16:25)
--- NOTE | 2019-02-07 16:29 | CONS ---
CONSULTATION PULMONARY/CRITICAL CARE CONSULTATION: DATE OF SERVICE: 02/07/2019 REASON FOR CONSULTATION: Possible pneumonia and right-sided chest discomfort. This is a 63-year-old female, well known to me. She presented to the emergency room with complaints of right-sided chest discomfort. The pain is sharp in nature, worse with taking a deep breath. She has right chest, back and shoulder pain. The patient also apparently complained of some mild shortness of breath with the pain, but no shortness of breath otherwise, and she apparently had a couple episodes of feeling nauseated with vomiting. She had a recent admission to the hospital for congestive heart failure, diastolic in nature. She was also told that the chest x-ray, particularly on the left side, showed a possible pneumonia. She really denies any pneumonic symptoms and she denies any fever, chills, cough or phlegm production. The patient denies any chest pain or chest discomfort. There are no palpitations. There is diarrhea. The patient denies any other complaints at this time. She is resting comfortably in the hospital, sitting at the bedside. She appears to be in no distress. She is not requiring any oxygen therapy. 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 Her home medications include: 1. Symbicort. 2. Levothyroxine. 3. Metoprolol. 4. Singulair. 5. Zoloft. 6. Albuterol. 7. Acyclovir topically. 8. Zyrtec. 9. Zantac. 10.Xanax. 11.Vitamin D2. 12.Omeprazole. 13.K-Tabs. 14.Aldactone. 15.Abilify. 16.Zofran. 17.She was previously on prednisone, but she has been weaned off of that. 18.Nebulizer machine. 19.Lasix. 20.Mucinex. ALLERGIES: DENIED. MEDICAL HISTORY: Includes: 1. Diastolic heart failure. 2. Bronchiolitis obliterans organizing pneumonia. 3. Chronic anemia. 4. Compression fracture. 5. Hodgkin's lymphoma with previous chemo and radiation therapy. 6. Left breast cancer, status post mastectomy. 7. Renal cell carcinoma with partial nephrectomy on the right. 8. Chronic hypoxemic respiratory failure previously secondary to the bronchiolitis obliterans organizing pneumonia. 9. History of sleep apnea syndrome, for which she uses CPAP. 10.Hypothyroidism. 11.Chronic back pain. 12.Osteoporosis. SURGICAL HISTORY: Includes: 1. Lung biopsy done by video-assisted thoracoscopic procedure. 2. Adenoidectomy. 3. Breast surgery/right mastectomy. 4. . 5. Hysterectomy. 6. Orthopedic procedures. 7. Tonsillectomy. 8. Splenectomy. 9. Endoscopies. 10.Bronchoscopy. 11.Partial right nephrectomy. SOCIAL HISTORY: Positive for previous tobacco use. She drinks alcohol occasionally. She denies any illicit drug use. FAMILY HISTORY: Positive for glaucoma, MS, myocardial infarction, chronic liver disease, and osteoarthritis. REVIEW OF SYSTEMS: CONSTITUTIONAL: Negative. NEUROLOGIC: Negative. HEENT: Negative. CARDIOVASCULAR: Chest pain, primarily right-sided and sharp in nature. Sort of pleuritic, quite honestly. It seems to be in her right chest radiating up to the right shoulder and right back area. She denies any left chest pain or left chest discomfort. PULMONARY: Negative. GI: Negative except for 2 episodes of vomiting prior to admission. : Negative. RHEUMATOLOGIC: Negative. IMMUNOLOGIC: Negative. DERMATOLOGIC: Negative. PHYSICAL EXAMINATION: Current vital signs are reviewed. Her temperature is 97.5, heart rate 94, respiratory rate 18, blood pressure 113/57, mean 75, and room-air saturation 94% to 95%. She appears in no acute distress. No audible wheezing. No respiratory difficulty. No conversational dyspnea. No use of accessory muscles. HEENT examination is grossly unremarkable. No supplemental oxygen is noted. NECK: Supple. Full range of motion. No adenopathy or thyromegaly. Neck veins are flat. Cardiovascular examination reveals regular rhythm and rate. S1, S2 normal. There is no S3, S4 or murmur. LUNGS: Mostly clear breath sounds. There are a few scattered mild rhonchi. No wheezes or crackles. ABDOMEN: Soft. Bowel sounds are heard. Extremities reveal some mild edema. Skin without rash. Neurologic examination is brief but nonfocal. IMAGING: Chest x-ray done on admission shows stable left basilar pleural-parenchymal opacity which may relate to either pleural effusion, atelectasis or infiltrate. A subsequent chest x-ray on 02/07/2019 shows some mild interstitial edema, left pleural effusion, left basilar airspace disease and some atelectasis. Put together, these findings are consistent with mild fluid overload. LAB DATA: Reviewed. White count 17, hemoglobin 12.5, hematocrit 40.1, platelet count 331,000. PT, INR and PTT all normal. Sodium 141, potassium 4.4, chloride 100, CO2 32, anion gap 9. BUN and creatinine were 31 and 0.87. Her troponins were less than 0.012. N- terminal proBNP was elevated at 3680. The rest of the liver functions are normal. Microbiologic studies are negative. Medications are reviewed. They will be adjusted accordingly. ASSESSMENT: 1. Right chest pain; appears to be pleuritic in nature. Apparently responsive to small doses of steroids. This may reflect a viral pleurisy. 2. Mild fluid overload. 3. Doubt pneumonia. 4. Previous history of bronchiolitis obliterans organizing pneumonia, biopsy- proven, treated with corticosteroids for a 9-month period of time. 5. Hypothyroidism. 6. History of diastolic heart failure. 7. History of Hodgkin's lymphoma. 8. Previous history of breast cancer. 9. History of hypernephroma, status post partial nephrectomy. 10.History of bronchiolitis obliterans organizing pneumonia, biopsy-proven. 11.Osteoporosis. 12.Compression fracture, T8. 13.Sleep apnea syndrome, currently on CPAP. 14.Status post splenectomy. 15.Multiple other medical problems and comorbidities. PLAN: I do not believe the patient does have pneumonia. I think she likely has some underlying fluid overload as well as some pleurisy involving the right chest area. A small dose of prednisone is appropriate. The patient can be maintained on DuoNeb q.i.d. and p.r.n. as well as her Symbicort. No higher doses of steroids are needed at this time. I do not believe she needs significant antibiotic coverage, as I do not believe she has pneumonia per se. If anything, she may have a mild purulent tracheobronchitis. Additional recommendations and suggestions are forthcoming. Prognosis is guarded. We will continue to follow. The patient will follow up with me in the office post discharge. MMODL / IJN: [id number] / YOSELYN
[2019-02-07] MEDS: ATORVASTATIN 20 MG TAB PO SCH (20:12)
[2019-02-07] MEDS: LORATADINE 10 MG TAB PO PRN (20:12)
[2019-02-07] MEDS: SPIRONOLACTONE 25 MG TAB PO SCH (20:12)
[2019-02-07] MEDS: AMOXIC-POT CLAV 875-125MG 1 EACH TAB PO SCH (20:12)
[2019-02-07] MEDS: MONTELUKAST 10 MG TAB PO SCH (20:12)
[2019-02-08] MEDS: LEVOTHYROXINE 100 MCG TAB PO SCH (05:58)
[2019-02-08] MEDS: HYDROmorphone 0.5 MG/0.5 ML SYRINGE IVP PRN (06:05)
[2019-02-08] MEDS: SYMBICORT 160-4.5 MCG INHALER INHALATION SCH ×2 (07:08→19:39)
[2019-02-08] MEDS: IPRATROPIUM-ALBUTEROL 3 ML NEB INHALATION SCH ×4 (07:08→19:39)
[2019-02-08] MEDS: PANTOPRAZOLE 40 MG TABLET PO SCH ×2 (08:04→16:55)
[2019-02-08] MEDS: POTASSIUM CHLORIDE ER 10 MEQ TAB.ER.PRT PO SCH (08:04)
[2019-02-08] MEDS: METOPROLOL SUCCINATE (ER) 25 MG TAB.ER.24H PO SCH (08:04)
[2019-02-08] MEDS: predniSONE 10 MG TAB PO SCH (08:04)
[2019-02-08] MEDS: FUROSEMIDE 10 MG/ML 2 ML VIAL IV SCH ×3 (08:04→23:25)
--- NOTE | 2019-02-08 08:04 | US ---
EXAMINATION TYPE: US gallbladder DATE OF EXAM: 02/08/2019 COMPARISON: CT abdomen August 21, 2018 CLINICAL HISTORY: Upper right quadrant pain. RUQ pain EXAM MEASUREMENTS: Liver Length: 15.1 cm Gallbladder Wall: 0.2 cm CBD: 0.5 cm Right Kidney: 10.1 x 4.6 x 4.4 cm overlying bowel gas limits exam Pancreas: not seen due to bowel gas Liver: difficult to penetrate Gallbladder: wnl Evidence for sonographic Dyer's sign: no CBD: wnl Right Kidney: wnl Pancreas is suboptimally evaluated on images saved secondary to shadowing from overlying bowel gas pe r technologist. Visualized liver is heterogeneous without intrahepatic ductal dilatation. Suspect dif fuse fatty infiltration. Gallbladder shows no shadowing mobile gallstones on images saved. Limited im ages of right kidney show no hydronephrosis. IMPRESSION: No shadowing mobile gallstones or ultrasound evidence for acute cholecystitis. Diffuse fa tty infiltration of liver is felt present.
[2019-02-08] MEDS: ENOXAPARIN 40 MG/0.4 ML SYRINGE SQ SCH (08:05)
[2019-02-08] MEDS: ARIPiprazole 5 MG TAB PO SCH (08:05)
[2019-02-08] MEDS: AMOXIC-POT CLAV 875-125MG 1 EACH TAB PO SCH ×2 (08:05→19:49)
[2019-02-08 09:13] LABS: Anisocytosis Slight; Basophils % (A) 0 %; Eosinophils # (A) 0.2 k/uL (0-0.7); Eosinophils % (A) 1 %; HGB 12.4 gm/dL (11.4-16.0); Hypochromasia Slight; Lymphocytes # (A) 2.6 k/uL (1.0-4.8); Lymphocytes % (A) 15 %; MCH 25.2 pg (25.0-35.0); MCHC 30.2 g/dL (31.0-37.0); MCV 83.4 fL (80.0-100.0); Monocytes # (A) 0.7 k/uL (0-1.0); Monocytes % (A) 4 %; Neutrophils # (A) 13.1 k/uL (1.3-7.7); Neutrophils % (A) 78 %; Platelet Count 323 k/uL (150-450); RBC 4.91 m/uL (3.80-5.40); RDW 17.7 % (11.5-15.5); WBC 16.8 k/uL (3.8-10.6)
[2019-02-08 09:24] LABS: ALT 29 U/L (9-52); AST 19 U/L (14-36); Albumin 3.8 g/dL (3.5-5.0); Alkaline Phosphatase 77 U/L (38-126); Anion Gap 9 mmol/L; Blood Urea Nitrogen 30 mg/dL (7-17); Calcium 9.6 mg/dL (8.4-10.2); Carbon Dioxide 32 mmol/L (22-30); Chloride 97 mmol/L (98-107); Glucose 90 mg/dL (74-99); Potassium 3.8 mmol/L (3.5-5.1); Sodium 138 mmol/L (137-145); Total Bilirubin 0.8 mg/dL (0.2-1.3); Total Protein 6.3 g/dL (6.3-8.2)
--- NOTE | 2019-02-08 11:23 | PN ---
PROGRESS NOTE Mrs. Clark is a 63-year-old female with history of pulmonary fibrosis, breast cancer, history of aortic valve disease who presented with symptoms of right-sided discomfort, worse in certain position. She continues to have the discomfort today although slightly better. Her breathing is stable. She is denying any dizziness. No palpitation. She continued to have peripheral edema. She has a history of bronchiolitis obliterans organizing pneumonia and history of diastolic dysfunction heart failure. She continues to be at this time on atorvastatin 20 mg daily, furosemide 20 mg IV q.8 hours, levothyroxine, metoprolol succinate 25 mg daily, prednisone, sertraline, and spironolactone 25 mg daily. PHYSICAL EXAMINATION: Blood pressure 95/60 with the heart rate in the 90s. LUNGS: With few dry crackles. HEART: Regular rate and rhythm. S1, S2. No S3 with systolic murmur 2/6 heard at the base. No diastolic murmur. No rub. ABDOMEN: Soft, nontender. Positive bowel sounds. No organomegaly. EXTREMITIES: With 1+ edema bilaterally. BACK: With reproducible pain by palpation. LAB DATA: Lab data revealed a BUN and creatinine 30 and 0.7. Potassium of 4.9. Her gallbladder ultrasound revealed no evidence of acute cholecystitis or cholelithiasis. IMPRESSION: 1. Back discomfort and chest discomfort, right-sided, musculoskeletal in etiology. 2. History of bronchiolitis obliterans organizing pneumonia. 3. History of aortic valve disease. 4. Peripheral edema with diastolic dysfunction heart failure. 5. History of pulmonary hypertension. RECOMMENDATION: From the cardiac standpoint, she is stable. We will continue present therapy. She will undergo further evaluation regarding the etiology of her back discomfort and depending on her progress, further recommendation will be made. MMODL / IJN: [id number] /
[2019-02-08] MEDS ORDERED: CYCLOBENZAPRINE 10 MG TAB PO PRN (13:17)
--- NOTE | 2019-02-08 13:26 | P.PN ---
Subjective Progress Note Date: 02/08/19 This is a 63-year-old female with a known past medical history of BOOP, Hodgkin's lymphoma status post chemoradiation in 1978, history of breast cancer status post mastectomy, renal cancer status post partial nephrectomy, hypertension, hyperlipidemia, T8 compression fracture, hypothyroidism, chronic persistent asthma, sinus headache, and congestive heart failure. Patient was just discharged from the hospital on January 29 and had been treated for congestive heart failure exacerbation COPD exacerbation and bronchitis. Patient reports completing her antibiotic treatment and had 2 days left of the prednisone taper. Patient reports 3 days ago had worsening right rib pain. She reports having this rib pain for a few weeks now. Yesterday the pain became so severe she had 2 episodes of vomiting. She took [address] with some relief. She came into the ER for further evaluation and treatment. Chest x-ray done in the ER had showed stable left basilar pleural-parenchymal opacity which may reflect a combination of infiltrate, atelectasis and pleural effusion. Patient started on Rocephin in the ER and pulmonary had been consulted. Chest x-ray also reported remote right-sided rib fractures. X-ray of the right ribs have been ordered to rule out an acute fracture. Patient denies any injury to the ribs. There is no skin rash or lesions. However patient has chronically been on steroids for her lung issues and does report a chronic cough. White count elevated at 21.5 but patient has been on prednisone at home. BUN 26 lactic 1.3 troponin negative. BNP elevated at 3680. Patient denies any fever, chills, sweats, bowel movement changes or urinary symptoms. She does admit to a mild cough nonproductive. Reports some shortness of breath but nothing too significant. However, she does report still being short of breath with ambulating. When the right rib pain becomes severe she also is short of breath. On 02/07/2019 patient is alert and oriented 3 currently sitting up in chair. Patient states some improvement with shortness of breath. Patient remains on IV Lasix and prednisone. Placenta patient requesting ultrasound of gallbladder due to increased right upper quadrant pain radiating to back. On examination patient some tenderness noted to right upper quadrant. Patient denies nausea vomiting or diarrhea. Patient denies any urinary burning or frequency. Patient denies chest pain or shortness breath 02/08/2019 patient still complaining of right rib pain as well as now c omplaining of right scapula shoulder pain and back pain. Patient reports that she was supposed to have a bone scan at some time outpatient. Has not had a chance to have this done. She usually follows with Dr. Cheng her oncologist. Oncology will be consulted for further evaluation in regards to her bone pain and cancer history. Patient was Rocephin was discontinued and she is currently on Augmentin for a possible bronchitis. Pulmonary felt that pneumonia was unlikely. Ultrasound of the gallbladder showed no evidence of gallstones. She is followed by cardiology as well. Patient reports improvement in her breathing. Denies any chest pain. Denies any nausea or vomiting. His been 2 d ays since her last bowel movement stool softener has been added. Denies any burning with urination. She reports that Dilaudid is helping with the pain. Green [address] be added as well as a muscle relaxer to help control pain. Objective - Vital Signs Vital signs: Vital Signs Temp 98.4 F 02/08/19 11:55 Pulse 92 02/08/19 11:55 Resp 20 02/08/19 11:55 BP 105/65 02/08/19 11:55 Pulse Ox 94 L 02/08/19 11:55 Intake & Output 02/07/19 02/08/19 02/08/19 18:59 06:59 18:59 Weight 77.5 kg 76.5 kg Other: Voiding Method Toilet # Voids 3 2 - Exam Head normocephalic Neck supple Lungs crackles on the left lower lobe no wheezing Heart regular rate and rhythm S1-S2, no rub or gallop Abdomen is soft nontender nondistended positive bowel sounds no hep atosplenomegaly Extremities +1 edema bilateral lower extremities Neuro alert and orientated to 3 - Labs CBC & Chem 7: 02/08/19 08:20 02/08/19 08:20 Labs: Abnormal Lab Results - Last 24 Hours (Table) 02/08/19 02/08/19 Range/Units 08:20 08:20 WBC 16.8 H (3.8-10.6) k/uL MCHC 30.2 L (31.0-37.0) g/dL RDW 17.7 H (11.5-15.5) % Neutrophils # 13.1 H (1.3-7.7) k/uL Chloride 97 L (98-107) mmol/L Carbon Dioxide 32 H (22-30) mmol/L BUN 30 H (7-17) mg/dL Microbiology - Last 24 Hours (Table) 02/06/19 13:27 Blood Culture - Preliminary Blood No Growth after 24 hours Assessment and Plan Assessment: 1. Right rib pain :Chest x-ray completed showing fractures of right ribs 7 and 8 of indeterminate age. Patient denies any injury. And Dilaudid 0.5 mg IV every 4 hours as needed for pain. Ultrasound: Gallbladder negative for any gallstones. Patient is still complaining of right rib pain as well as shoulder and back pain. With her known history of cancer and continuous pain Will have patient evaluated by oncology. Also note patient reported to supposed to have a bone scan completed outpatient and has not had a chance to get that done yet. We'll await oncology is recommendations on further imaging of patient's areas of pain. Add Green [address] 7.5 one every 6 hours as needed for pain. Also on muscle relaxer Flexeril 10 g twice a day as needed for muscle spasms. Patient's symptoms may be musculoskeletal but will await further oncology recommendations. 2. acute tracheal bronchitis continue Augmentin. Patient evaluated by pulmonary who felt there was no pneumonia. They discontinued Rocephin. Pneumonia ruled out 3. constipation add Colace 4. Acute on Chronic systolic and diastolic CHF exacerbation: Echo in May shows an EF of 50-55%. Echo from cardiology office in September shows an EF of 45%. continue Lasix 20 mg IV every 8 hours for another 24 hours. Consult card iology. BNP 3680 5. History of COPD: Patient currently on prednisone taper for COPD exacerbation and bronchitis from recent hospitalization. Will resume the prednisone and nebulizer treatments. Patient does have some mild wheezing 6. History of bronchiolitis obliterans organizing pneumonia 7. History of Hodgkin's lymphoma status post chemoradiation 1978 8. History of breast cancer status post mastectomy 9. History of renal cancer status post partial nephrectomy 10. Hypertension 11. Hyperlipidemia 12. History of T8 compression fracture 13. Hypothyroidism 14. Chronic persistent asthma 15. Leukocytosis patient has been on prednisone. Continue to monitor. GI prophylaxis Protonix and DVT prophylaxis Lovenox I performed an examination of the patient and discussed their management with the physician King Maker. I have reviewed the Physician King Maker's notes and agree with the documented findings and plan of care
[2019-02-08] MEDS: DOCUSATE 100 MG CAP PO SCH ×2 (13:29→19:49)
[2019-02-08] MEDS: ALPRAZolam 0.5 MG TAB PO PRN (13:29)
[2019-02-08] MEDS: HYDROcodone/APAP 7.5-325MG 1 EACH TAB PO PRN ×2 (13:30→19:48)
--- NOTE | 2019-02-08 13:33 | P.PN ---
Subjective Progress Note Date: 02/08/19 Principal diagnosis: The patient is seen today in follow-up on the regular medical floor. She is currently sitting up in a chair at the bedside. She is awake and alert in no acute distress. She denies any shortness of breath, cough or congestion. She is maintaining O2 saturations in the mid 90s on room air. She's afebrile. Hemodynamically stable. Her only complaint is that of right scapula area pain which is reproducible on palpation. Blood cultures reveal no growth. White count 16.8. Hemoglobin 12.4. Creatinine 0.70. Ultrasound of the gallbladder showed no gallstones or evidence of acute cholecystitis. Objective - Vital Signs Vital signs: Vital Signs Temp 98.4 F 02/08/19 11:55 Pulse 92 02/08/19 11:55 Resp 20 02/08/19 11:55 BP 105/65 02/08/19 11:55 Pulse Ox 94 L 02/08/19 11:55 Intake & Output 02/07/19 02/08/19 02/08/19 18:59 06:59 18:59 Weight 77.5 kg 76.5 kg Other: Voiding Method Toilet # Voids 3 2 - Exam GENERAL EXAM: Alert, fairly comfortable in no apparent distress. On room air. HEAD: Normocephalic. EYES: Normal reaction of pupils, equal size. NOSE: Clear with pink turbinates. THROAT: No erythema or exudates. NECK: No masses, no JVD. CHEST: No chest wall deformity. LUNGS: Equal air entry with no crackles, wheeze, rhonchi or dullness. CVS: S1 and S2 normal with no audible murmur, regular rhythm. ABDOMEN: No hepatosplenomegaly, normal bowel sounds, no guarding or rigidity. SPINE: No scoliosis or deformity SKIN: No rashes CENTRAL NERVOUS SYSTEM: No focal deficits, tone is normal in all 4 extremities. EXTREMITIES: There is no peripheral edema. No clubbing, no cyanosis. Peripheral pulses are intact. - Labs CBC & Chem 7: 02/08/19 08:20 02/08/19 08:20 Labs: Abnormal Lab Results - Last 24 Hours (Table) 02/08/19 02/08/19 Range/Units 08:20 08:20 WBC 16.8 H (3.8-10.6) k/uL MCHC 30.2 L (31.0-37.0) g/dL RDW 17.7 H (11.5-15.5) % Neutrophils # 13.1 H (1.3-7.7) k/uL Chloride 97 L (98-107) mmol/L Carbon Dioxide 32 H (22-30) mmol/L BUN 30 H (7-17) mg/dL Microbiology - Last 24 Hours (Table) 02/06/19 13:27 Blood Culture - Preliminary Blood No Growth after 24 hours Assessment and Plan Assessment: Impression: #1 Right-sided chest discomfort with right scapular pain appears to be musculoskeletal in nature. Ultrasound of the gallbladder negative. #2 Previous history of bronchiolitis obliterans organizing pneumonia, biopsy proven. #3 Hypothyroidism. #4 History of diastolic congestive heart failure. #5 History of Hodgkin's lymphoma. #6 Previous history of breast cancer. #7 History of hypernephroma, status post partial nephrectomy. #8 S2 process. #9 Compression fracture of T8. #10 Obstructive sleep apnea, utilizing CPAP. #11 History of splenectomy. Plan: The patient was seen in [address] Valadez. No pulmonary issues. We'll continue with her current pulmonary medications. We'll see the patient on as- needed basis. No clear evidence of pneumonia. I, the cosigning physician, performed a history & physical examination of the patient. Lungs sounds are clear. Maintaining good O2 saturations in the 90s on room air. I discussed the assessment and plan of care with my nurse practitioner, Prachi Jones. I attest to the above note as dictated by her.
[2019-02-08] MEDS: SERTRALINE 100 MG TAB PO SCH (16:55)
[2019-02-08] MEDS: ATORVASTATIN 20 MG TAB PO SCH (19:48)
[2019-02-08] MEDS: FAMOTIDINE 20 MG TAB PO PRN (19:48)
[2019-02-08] MEDS: LORATADINE 10 MG TAB PO PRN (19:50)
[2019-02-08] MEDS: MONTELUKAST 10 MG TAB PO SCH (19:58)
[2019-02-08] MEDS: SPIRONOLACTONE 25 MG TAB PO SCH (20:00)
[2019-02-09] MEDS: HYDROmorphone 0.5 MG/0.5 ML SYRINGE IVP PRN ×3 (04:41→20:26)
[2019-02-09] MEDS: LEVOTHYROXINE 100 MCG TAB PO SCH (04:41)
[2019-02-09] MEDS: SYMBICORT 160-4.5 MCG INHALER INHALATION SCH ×2 (07:11→19:15)
[2019-02-09] MEDS: IPRATROPIUM-ALBUTEROL 3 ML NEB INHALATION SCH ×4 (07:11→19:15)
[2019-02-09 08:10] LABS: Anisocytosis Slight; Basophils % (A) 0 %; Eosinophils # (A) 0.2 k/uL (0-0.7); Eosinophils % (A) 1 %; HCT 38.1 % (34.0-46.0); HGB 11.9 gm/dL (11.4-16.0); Hypochromasia Slight; Lymphocytes # (A) 1.8 k/uL (1.0-4.8); Lymphocytes % (A) 15 %; MCH 26.2 pg (25.0-35.0); MCHC 31.3 g/dL (31.0-37.0); MCV 83.6 fL (80.0-100.0); Mean Platelet Volume 6.4; Monocytes # (A) 0.6 k/uL (0-1.0); Monocytes % (A) 5 %; Neutrophils # (A) 9.9 k/uL (1.3-7.7); Neutrophils % (A) 79 %; Platelet Count 318 k/uL (150-450); RBC 4.56 m/uL (3.80-5.40); RDW 17.9 % (11.5-15.5); WBC 12.6 k/uL (3.8-10.6)
[2019-02-09 08:17] LABS: ALT 28 U/L (9-52); AST 18 U/L (14-36); Albumin 3.3 g/dL (3.5-5.0); Alkaline Phosphatase 67 U/L (38-126); Anion Gap 5 mmol/L; Blood Urea Nitrogen 29 mg/dL (7-17); Calcium 9.2 mg/dL (8.4-10.2); Carbon Dioxide 35 mmol/L (22-30); Chloride 97 mmol/L (98-107); Glucose 73 mg/dL (74-99); Potassium 3.9 mmol/L (3.5-5.1); Sodium 137 mmol/L (137-145); Total Bilirubin 0.8 mg/dL (0.2-1.3); Total Protein 5.7 g/dL (6.3-8.2)
[2019-02-09] MEDS: DOCUSATE 100 MG CAP PO SCH ×2 (08:23→22:30)
[2019-02-09] MEDS: ENOXAPARIN 40 MG/0.4 ML SYRINGE SQ SCH (08:23)
[2019-02-09] MEDS: ARIPiprazole 5 MG TAB PO SCH (08:23)
[2019-02-09] MEDS: predniSONE 10 MG TAB PO SCH (08:23)
[2019-02-09] MEDS: METOPROLOL SUCCINATE (ER) 25 MG TAB.ER.24H PO SCH (08:24)
[2019-02-09] MEDS: POTASSIUM CHLORIDE ER 10 MEQ TAB.ER.PRT PO SCH (08:24)
[2019-02-09] MEDS: PANTOPRAZOLE 40 MG TABLET PO SCH ×2 (08:24→17:56)
[2019-02-09] MEDS: FUROSEMIDE 10 MG/ML 2 ML VIAL IV SCH (08:24)
[2019-02-09] MEDS: AMOXIC-POT CLAV 875-125MG 1 EACH TAB PO SCH ×2 (08:24→22:30)
[2019-02-09] MEDS: HYDROcodone/APAP 7.5-325MG 1 EACH TAB PO PRN ×2 (08:29→15:47)
--- NOTE | 2019-02-09 10:33 | P.PN ---
Subjective Progress Note Date: 02/09/19 This is a pleasant 63-year-old female with history of pulmonary fibrosis, breast cancer, history of aortic valve disease, bronchiolitis obliterans organizing pneumonia and diastolic dysfunction who presented with symptoms of right-sided discomfort worse in certain positions. She continues to have discomfort that is mostly in her back. This is slightly better. Ultrasound gallbladder done yesterday showed no shadowing mobile gallstones or ultrasound evidence for acute cholecystitis, diffuse fatty infiltration of the liver is felt present. Her breathing has improved. She has some peripheral edema but this is also a bit better. She denies having any complaints of dizziness or palpitations. She c urrently is on atorvastatin 20 mg by mouth daily, metoprolol succinate 25 mg by mouth daily, and Aldactone 25 mg by mouth daily. She is currently on Lasix 20 mg IV every 8 hours which according to the patient is being changed to by mouth Lasix by primary. Laboratory values this morning show a white count of 12,600, potassium 3.9, BUN 29, creatinine 0.72. Objective - Vital Signs Vital signs: Vital Signs Temp 97.4 F L 02/09/19 04:51 Pulse 84 02/09/19 07:24 Resp 16 02/09/19 04:51 BP 112/73 02/09/19 04:51 Pulse Ox 94 L 02/09/19 07:11 Intake & Output 02/08/19 02/09/19 02/09/19 18:59 06:59 18:59 Intake Total 450 Balance 450 Weight 76.5 kg Intake: Oral 450 Other: Voiding Method Toilet Toilet # Voids 2 2 - Exam PHYSICAL EXAMINATION: HEENT: Head is atraumatic, normocephalic. Pupils equal, round. Neck is supple. There is no elevated jugular venous pressure. HEART EXAMINATION: Heart sounds regular, S1 and S2 with systolic murmur at the base. CHEST EXAMINATION: Lungs reveal few dry crackles. No chest wall tenderness is noted on palpation or with deep breathing. ABDOMEN: Soft, nontender. Bowel sounds are heard. No organomegaly noted. EXTREMITIES: 2+ peripheral pulses with evidence of 1+ peripheral edema and no calf tenderness noted. NEUROLOGIC patient is awake, alert and oriented x3. . - Labs CBC & Chem 7: 02/09/19 07:21 02/09/19 07:21 Labs: Abnormal Lab Results - Last 24 Hours (Table) 02/09/19 02/09/19 Range/Units 07:21 07:21 WBC 12.6 H (3.8-10.6) k/uL RDW 17.9 H (11.5-15.5) % Neutrophils # 9.9 H (1.3-7.7) k/uL Chloride 97 L (98-107) mmol/L Carbon Dioxide 35 H (22-30) mmol/L BUN 29 H (7-17) mg/dL Glucose 73 L (74-99) mg/dL Total Protein 5.7 L (6.3-8.2) g/dL Albumin 3.3 L (3.5-5.0) g/dL Microbiology - Last 24 Hours (Table) 02/06/19 13:27 Blood Culture - Preliminary Blood No Growth after 48 hours Assessment and Plan Assessment: #1 back discomfort and chest discomfort, right-sided, likely musculoskeletal in etiology #2 history of bronchiolitis obliterans organizing pneumonia #3 history of aortic valve disease #4 peripheral edema with diastolic dysfunction heart failure #5 history of pulmonary hypertension Plan: From cardiology's perspective, patient is stable. We'll continue current indications and agree with decreasing Lasix to by mouth. Further evaluation of back pain will be necessary from the primary, according to the patient she will having an MRI today. POSTPARTUM RN note has been reviewed, I agree with a documented findings and plan of care. Patient was seen and examined.
--- NOTE | 2019-02-09 10:52 | P.PN ---
Subjective Progress Note Date: 02/09/19 This is a 63-year-old female with a known past medical history of BOOP, Hodgkin's lymphoma status post chemoradiation in 1978, history of breast cancer status post mastectomy, renal cancer status post partial nephrectomy, hypertension, hyperlipidemia, T8 compression fracture, hypothyroidism, chronic persistent asthma, sinus headache, and congestive heart failure. Patient was just discharged from the hospital on January 29 and had been treated for congestive heart failure exacerbation COPD exacerbation and bronchitis. Patient reports completing her antibiotic treatment and had 2 days left of the prednisone taper. Patient reports 3 days ago had worsening right rib pain. She reports having this rib pain for a few weeks now. Yesterday the pain became so severe she had 2 episodes of vomiting. She took Mabel with some relief. She came into the ER for further evaluation and treatment. Chest x-ray done in the ER had showed stable left basilar pleural-parenchymal opacity which may reflect a combination of infiltrate, atelectasis and pleural effusion. Patient started on Rocephin in the ER and pulmonary had been consulted. Chest x-ray also reported remote right-sided rib fractures. X-ray of the right ribs have been ordered to rule out an acute fracture. Patient denies any injury to the ribs. There is no skin rash or lesions. However patient has chronically been on steroids for her lung issues and does report a chronic cough. White count elevated at 21.5 but patient has been on prednisone at home. BUN 26 lactic 1.3 troponin negative. BNP elevated at 3680. Patient denies any fever, chills, sweats, bowel movement changes or urinary symptoms. She does admit to a mild cough nonproductive. Reports some shortness of breath but nothing too significant. However, she does report still being short of breath with ambulating. When the right rib pain becomes severe she also is short of breath. On 02/07/2019 patient is alert and oriented 3 currently sitting up in chair. Patient states some improvement with shortness of breath. Patient remains on IV Lasix and prednisone. Placenta patient requesting ultrasound of gallbladder due to increased right upper quadrant pain radiating to back. On examination patient some tenderness noted to right upper quadrant. Patient denies nausea vomiting or diarrhea. Patient denies any urinary burning or frequency. Patient denies chest pain or shortness breath 02/08/2019 patient still complaining of right rib pain as well as now c omplaining of right scapula shoulder pain and back pain. Patient reports that she was supposed to have a bone scan at some time outpatient. Has not had a chance to have this done. She usually follows with Dr. Cheng her oncologist. Oncology will be consulted for further evaluation in regards to her bone pain and cancer history. Patient was Rocephin was discontinued and she is currently on Augmentin for a possible bronchitis. Pulmonary felt that pneumonia was unlikely. Ultrasound of the gallbladder showed no evidence of gallstones. She is followed by cardiology as well. Patient reports improvement in her breathing. Denies any chest pain. Denies any nausea or vomiting. His been 2 d ays since her last bowel movement stool softener has been added. Denies any burning with urination. She reports that Dilaudid is helping with the pain. Mabel be added as well as a muscle relaxer to help control pain. 02/09/2019 patient reports still having right-sided rib pain shoulder pain and upper back pain. She had minimal improvement with the Mabel for pain. She did not take the muscle relaxer. Educated patient that she does have muscle relaxers available as needed. She was seen by oncology service. Their note is pending. Per patient. Oncology is ordered an MRI to further evaluate her pain. Patient reports that her shortness of breath has completely resolved and her breathing is back to baseline. She's had decrease in her lower extremity edema. We will discontinue the IV Lasix and place her on oral Lasix. Patient denies any chest pain or cough at this time. Denies any nausea or vomiting. Reports having bowel movements. Denies any difficulty urinating Objective - Vital Signs Vital signs: Vital Signs Temp 97.4 F L 02/09/19 04:51 Pulse 84 02/09/19 07:24 Resp 16 02/09/19 04:51 BP 112/73 02/09/19 04:51 Pulse Ox 94 L 02/09/19 07:11 Intake & Output 02/08/19 02/09/19 02/09/19 18:59 06:59 18:59 Intake Total 450 Balance 450 Weight 76.5 kg Intake: Oral 450 Other: Voiding Method Toilet Toilet # Voids 2 2 - Exam Head normocephalic Neck supple Lungs crackles on the left lower lobe no wheezing. Improving air movement Heart regular rate and rhythm S1-S2, no rub or gallop Abdomen is soft nontender nondistended positive bowel sounds no hepatosplenomegaly Extremities decreased edema. Trace edema bilaterally Neuro alert and orientated to 3 - Labs CBC & Chem 7: 02/09/19 07:21 02/09/19 07:21 Labs: Abnormal Lab Results - Last 24 Hours (Table) 02/09/19 02/09/19 Range/Units 07:21 07:21 WBC 12.6 H (3.8-10.6) k/uL RDW 17.9 H (11.5-15.5) % Neutrophils # 9.9 H (1.3-7.7) k/uL Chloride 97 L (98-107) mmol/L Carbon Dioxide 35 H (22-30) mmol/L BUN 29 H (7-17) mg/dL Glucose 73 L (74-99) mg/dL Total Protein 5.7 L (6.3-8.2) g/dL Albumin 3.3 L (3.5-5.0) g/dL Microbiology - Last 24 Hours (Table) 02/06/19 13:27 Blood Culture - Preliminary Blood No Growth after 48 hours Assessment and Plan Assessment: 1. Right rib pain , right scapula and upper back pain:Chest x-ray completed showing fractures of right ribs 7 and 8 of indeterminate age. Patient denies any injury. And Dilaudid 0.5 mg IV every 4 hours as needed for pain. Ultrasound: Gallbladder negative for any gallstones. Patient is still complaining of right rib pain as well as shoulder and back pain. Add Mabel 7.5 one every 6 hours as needed for pain. Also on muscle relaxer Flexeril 10 g twice a day as needed for muscle spasms. Patient's symptoms may be musculoskeletal but will await further oncology recommendations. Patient's by oncology they have ordered an MRI for further evaluation of her pain 2. acute tracheal bronchitis continue Augmentin. Patient evaluated by pulmonary who felt there was no pneumonia. They discontinued Rocephin. Pneumonia ruled out 3. constipation add Colace 4. Acute on Chronic diastolic CHF exacerbation: Echo in May shows an EF of 50- 55%. Echo from cardiology office in September shows an EF of 45%. BNP 3680 on admission. Patient evaluated by cardiology. Discontinue IV Lasix and restart patient's home Lasix of 40 mg by mouth twice a day 5. History of COPD: Patient currently on prednisone taper for COPD exacerbation and bronchitis from recent hospitalization. Will resume the prednisone and nebulizer treatments. 6. History of bronchiolitis obliterans organizing pneumonia 7. History of Hodgkin's lymphoma status post chemoradiation 1978 8. History of breast cancer status post mastectomy 9. History of renal cancer status post partial nephrectomy 10. Hypertension 11. Hyperlipidemia 12. History of T8 compression fracture 13. Hypothyroidism 14. Chronic persistent asthma 15. Leukocytosis patient has been on prednisone. Continue to monitor. GI prophylaxis Protonix and DVT prophylaxis Lovenox I performed an examination of the patient and discussed their management with the physician [employer] Office Telephone Clerk. I have reviewed the Physician [employer] Office Telephone Clerk's notes and agree with the documented findings and plan of care
[2019-02-09] MEDS: ALPRAZolam 0.5 MG TAB PO PRN (15:47)
--- NOTE | 2019-02-09 15:59 | P.CONS ---
History of Present Illness - Reason for Consult Consult date: 02/09/19 Rt sided pain, h/o multiple cancers - History of Present Illness The patient is a 63-year-old white female, with multiple medical problems and complicated past oncologic history. She was diagnosed with Hodgkin's lymphoma in the 1970s and was treated with chemotherapy and radiation with complete remission. She was then diagnosed with left-sided breast cancer in 2004 and had a complete mastectomy. She did not require any adjuvant systemic therapy. She was then diagnosed with right renal cell cancer in 10/14 and subsequently underwent a partial nephrectomy. The patient has a long-standing history of COPD, and has been on chronic steroids for at least a year now. She has had issues with muscular skeletal alejandro n, especially in the back. MRI of the thoracic spine and 06/14 had shown compression fractures at multiple levels, most prominently at T8, without evidence of metastatic involvement. The patient had been using a brace. The patient was recently admitted for COPD exacerbation, and CHF. She had bee n having some right-sided chest wall pain, which apparently got worse after going home. She describes the pain as involving the right lower rib cage and starting from the back and radiating around to the front. Apparently this was so severe that she threw up twice. She therefore came back into the emergency room and was admitted for further management. Review x-rays show at least 2 to fractures on the right, that may be subacute to chronic, the acute fracture was not ruled out. CTA of the chest from 01/25/19 did not show any pathology in the right lung with right upper abdomen. Gallbladder ultrasound this admission has been negative. CT of the abdomen in 08/15 showed postoperative changes, again without evidence of malignancy. Consult was therefore placed for further evaluation and recommendations Review of Systems Constitutional: Reports chronic pain, Reports fatigue, Reports weight loss (deliberate) Eyes: denies blurred vision, denies pain Ears: deny: decreased hearing, ear discharge, earache, tinnitus Ears, nose, mouth and throat: Denies headache, Denies sore throat Cardiovascular: Reports decreased exercise tolerance Respiratory: Reports cough with sputum, Reports dyspnea, Reports pain on inspiration Gastrointestinal: Denies abdominal pain, Denies diarrhea, Denies nausea, Denies vomiting Genitourinary: Denies dysuria, Denies hematuria Menstruation: Reports postmenopausal Musculoskeletal: Reports as per HPI, Reports muscle weakness Integumentary: Denies pruritus, Denies rash Neurological: Reports weakness, Denies numbness Psychiatric: Denies anxiety, Denies depression Endocrine: Reports recent glucocorticoid use, Reports weight change, Denies fatigue Hematologic/Lymphatic: Reports as per HPI Past Medical History Past Medical History: Asthma, Cancer, Heart Failure, COPD, GERD/Reflux, Osteoarthritis (OA), Sleep Apnea/CPAP/BIPAP, Thyroid Disorder Additional Past Medical History / Comment(s): BOOP, cardiomyopathy, cardiac murmur, anemia, past multiple thoracic compression fractures with T8 being worse, back pain, osteoporosis, R rib fracture, Hodgkins Lymphoma status post chemo and radiation chest area in 1978; L Breast CA-status post mastectomy(sx only), R renal carcinoma with partial nephrectomy, cervical cancer with surgery, ASHKAN with CPAP use, hypothyroid, hiatal hernia, sinus problems. History of Any Multi-Drug Resistant Organisms: None Reported Past Surgical History: Adenoidectomy, Breast Surgery, Section, Hysterectomy, Orthopedic Surgery, Tonsillectomy Additional Past Surgical History / Comment(s): Spleenectomy, laparotomy, colonoscopy, EGD, bilateral 5th toe surgery for spurs, L breast mastectomy with breast reconstruction, R breast implant since removed, bronchoscopy/lung bx, rt kidney partial nephrectomy, bilateral cataract removals with lens implants, ALDEN. Past Anesthesia/Blood Transfusion Reactions: No Reported Reaction Additional Past Anesthesia/Blood Transfusion Reaction / Comm: clausterphobia (mri's) Smoking Status: Former smoker - Past Family History Mother Family Medical History: Osteoarthritis (OA) Additional Family Medical History / Comment(s): glaucoma Brother(s) Additional Family Medical History / Comment(s): MS Father Family Medical History: Liver Disease, Myocardial Infarction (CO) Additional Family Medical History / Comment(s): age 70 -mi, alcoholic Medications and Allergies Home Medications Medication Instructions Recorded Confirmed Type Budesonide-Formot 160-4.5 Mcg 2 puff INHALATION RT-BID 10/05/16 02/06/19 History [Symbicort 160-4.5 Mcg Inhaler] Levothyroxine Sodium [Synthroid] 100 mcg PO DAILY 10/05/16 02/06/19 History Metoprolol Succinate (ER) [Toprol 25 mg PO DAILY 10/05/16 02/06/19 History XL] Montelukast [Singulair] 10 mg PO HS 10/05/16 02/06/19 History Sertraline [Zoloft] 200 mg PO AC-SUPPER 10/05/16 02/06/19 History Albuterol Sulfate [Proair Hfa] 2 puff INHALATION RT-Q6H PRN 04/06/17 02/06/19 History Acyclovir 400 mg PO DAILY PRN 05/13/17 02/06/19 History Acyclovir [Zovirax] 1 applic TOPICAL 5XD PRN 05/13/17 02/06/19 History Cetirizine HCl [Zyrtec] 10 mg PO HS PRN 05/13/17 02/06/19 History Ranitidine HCl [Zantac] 150 mg PO HS PRN 05/13/17 02/06/19 History ALPRAZolam [Xanax] 0.5 mg PO Q8H PRN 06/19/18 02/06/19 History Ergocalciferol [Vitamin D2 50,000 unit PO SA 06/19/18 02/06/19 History (ISDOL)] Omeprazole 40 mg PO BID 06/19/18 02/06/19 History Ipratropium-Albuterol Nebulize 3 ml INHALATION RT-QID ampul.neb 07/09/18 02/06/19 Rx [Duoneb 0.5 mg-3 mg/3 ml Soln] Potassium Chloride [K-Tab ER] 10 meq PO DAILY 09/13/18 02/06/19 History Spironolactone [Aldactone] 25 mg PO HS 09/13/18 02/06/19 History Furosemide [Lasix] 40 mg PO BID@0900,1600 #60 tab 09/19/18 02/06/19 Rx ARIPiprazole [Abilify] 5 mg PO DAILY 01/23/19 02/06/19 History Ondansetron [Zofran] 1 tab PO Q6HR PRN 01/24/19 02/06/19 History Simvastatin [Zocor] 40 mg PO HS #30 tab 01/29/19 02/06/19 Rx guaiFENesin [Mucinex] 600 mg PO Q12HR #10 tablet.er 01/29/19 02/06/19 Rx predniSONE See Taper PO DIRECTED 02/06/19 02/06/19 History Allergies Allergy/AdvReac Type Severity Reaction Status Date / Time No Known Allergies Allergy Verified 02/06/19 10:51 Physical Exam Vitals: Vital Signs Temp Pulse Pulse Resp BP Pulse Ox 02/09/19 07:24 84 02/09/19 07:11 82 94 L 02/09/19 04:51 97.4 F L 92 16 112/73 93 L 02/09/19 00:48 16 02/08/19 21:00 97.5 F L 80 16 98/59 95 02/08/19 19:59 18 02/08/19 19:50 89 02/08/19 19:41 89 02/08/19 15:36 92 02/08/19 15:25 90 02/08/19 11:55 98.4 F 92 20 105/65 94 L 02/08/19 11:25 90 02/08/19 11:13 88 Intake and Output 02/08/19 02/09/19 02/09/19 22:59 06:59 14:59 Intake Total 250 200 Balance 250 200 Intake: Oral 250 200 Other: Voiding Method Toilet Toilet # Voids 1 2 Weight 76.5 kg Results CBC & Chem 7: 02/09/19 07:21 02/09/19 07:21 Labs: Abnormal Lab Results - Last 24 Hours (Table) 02/08/19 02/08/19 02/09/19 Range/Units 08:20 08:20 07:21 WBC 16.8 H 12.6 H (3.8-10.6) k/uL MCHC 30.2 L (31.0-37.0) g/dL RDW 17.7 H 17.9 H (11.5-15.5) % Neutrophils # 13.1 H 9.9 H (1.3-7.7) k/uL Chloride 97 L (98-107) mmol/L Carbon Dioxide 32 H (22-30) mmol/L BUN 30 H (7-17) mg/dL Glucose (74-99) mg/dL Total Protein (6.3-8.2) g/dL Albumin (3.5-5.0) g/dL 02/09/19 Range/Units 07:21 WBC (3.8-10.6) k/uL MCHC (31.0-37.0) g/dL RDW (11.5-15.5) % Neutrophils # (1.3-7.7) k/uL Chloride 97 L (98-107) mmol/L Carbon Dioxide 35 H (22-30) mmol/L BUN 29 H (7-17) mg/dL Glucose 73 L (74-99) mg/dL Total Protein 5.7 L (6.3-8.2) g/dL Albumin 3.3 L (3.5-5.0) g/dL Microbiology - Last 24 Hours (Table) 02/06/19 13:27 Blood Culture - Preliminary Blood No Growth after 48 hours Comments: MRI of thoracic spine reviewed Chest x-ray: report reviewed CT scan - abdomen: report reviewed CT scan - chest: report reviewed CT scan - pelvis: report reviewed US - abdomen: report reviewed Assessment and Plan (1) Chest wall pain Narrative/Plan: This has been an ongoing problem for several weeks. The etiology is somewhat unclear. Based on the radiologic findings so far, there is concern for metastatic disease. Review the radiology studies, in my opinion, makes metastatic disease somewhat less likely. The patient has been on steroids chronically and likely has osteoporosis. She has known multiple compression fractures in the thoracic spine, and does have chronic cough. Therefore traumatic fractures in the rib cage are more likely. Regarding the nature of the pain, it is possible that this may be radicular. The patient may have some progression of her fracture at T8. I will therefore order MRI of the T-spine to assess this area better. Bone scan in that situation would not be specific, as it will light up at the sites of benign fractures also. Current Visit: Yes Status: Acute Code(s): R07.89 - OTHER CHEST PAIN SNOMED Code(s): 219780070 Plan: The patient has a history of multiple malignancies, and concern for metastasis - It is extremely unlikely that she would have recurrence of Hodgkin's lymphoma so many years after the treatment. - For breast cancer appears to have been an early stage. Therefore, again, recurrence after more than 10 years would be unlikely. Tumor markers will be checked. - Her renal cell cancer was also limited, which in general also has a low risk of metastatic recurrence. I will check breast cancer tumor markers. await MRI of the T-spine. Imaging of the right ribs does not show any definite malignant features. If labs/MRI are suspicious then additional workup, and biopsy will be considered Defer to the admitting service and other consultants for management of her multiple other medical problems
[2019-02-09] MEDS: FUROSEMIDE 40 MG TAB PO SCH (16:41)
[2019-02-09] MEDS: SERTRALINE 100 MG TAB PO SCH (17:56)
--- NOTE | 2019-02-09 22:10 | MR ---
EXAMINATION TYPE: MR thoracic spine wo/w con DATE OF EXAM: 02/09/2019 COMPARISON: 06/23/2018 HISTORY: h/o multiple cancers, T8 compression, radiculopath CONTRAST: Standard multiplanar, multisequence MRI departmental protocol utilizing 7.5 mL intravenous Gadavist g adolinium contrast. FINDINGS: There is a mild thoracolumbar kyphotic curvature. There is 75% compression deformity of T8 vertebra. There is some posterior fragment extension into the spinal canal and impingement on the tho racic spinal cord. There is contour deformity of the spinal cord. The spinal canal measures 5 to 6 mm . I see no edema in the thoracic spinal cord. There is 25% compression deformity of T11 vertebra. Con trast images show no definite pathologic enhancement. There is no thoracic paraspinal mass. There is left pleural effusion. Posterior elements are intact. There is 5% wedging of T6 and T5 vertebra. IMPRESSION: Compression fractures as above. Fracture pattern is more likely related to insufficiency fractures an d osteoporosis. No asymmetric bone destruction seen to suggest a pathologic fracture. There is posterior fragment extension at T8 vertebral body with thoracic spinal stenosis. Impingement on the thoracic spinal cord. There is progression of the compression deformity of T8 compared to old exam. T11 fracture is new com pared to old exam. Impingement on the thoracic spinal cord at T8 is worse than old exam.
[2019-02-09] MEDS: SPIRONOLACTONE 25 MG TAB PO SCH (22:30)
[2019-02-09] MEDS: ATORVASTATIN 20 MG TAB PO SCH (22:30)
[2019-02-10] MEDS: MONTELUKAST 10 MG TAB PO SCH ×2 (00:05→21:12)
[2019-02-10] MEDS: HYDROmorphone 0.5 MG/0.5 ML SYRINGE IVP PRN (05:52)
[2019-02-10 05:53] LABS: Anisocytosis Slight; Basophils % (A) 0 %; Eosinophils # (A) 0.2 k/uL (0-0.7); Eosinophils % (A) 2 %; HGB 11.6 gm/dL (11.4-16.0); Hypochromasia Slight; Lymphocytes # (A) 1.8 k/uL (1.0-4.8); Lymphocytes % (A) 13 %; MCHC 32.2 g/dL (31.0-37.0); MCV 83.8 fL (80.0-100.0); Mean Platelet Volume 6.5; Monocytes # (A) 0.6 k/uL (0-1.0); Monocytes % (A) 5 %; Neutrophils # (A) 10.6 k/uL (1.3-7.7); Neutrophils % (A) 80 %; Platelet Count 317 k/uL (150-450); RDW 18.1 % (11.5-15.5); WBC 13.3 k/uL (3.8-10.6)
[2019-02-10] MEDS: LEVOTHYROXINE 100 MCG TAB PO SCH (05:53)
[2019-02-10 06:03] LABS: ALT 34 U/L (9-52); AST 17 U/L (14-36); Albumin 3.1 g/dL (3.5-5.0); Alkaline Phosphatase 64 U/L (38-126); Anion Gap 3 mmol/L; Blood Urea Nitrogen 28 mg/dL (7-17); Calcium 9.2 mg/dL (8.4-10.2); Carbon Dioxide 37 mmol/L (22-30); Chloride 97 mmol/L (98-107); Glucose 87 mg/dL (74-99); Potassium 3.9 mmol/L (3.5-5.1); Sodium 137 mmol/L (137-145); Total Bilirubin 0.6 mg/dL (0.2-1.3); Total Protein 5.4 g/dL (6.3-8.2)
[2019-02-10] MEDS: SYMBICORT 160-4.5 MCG INHALER INHALATION SCH ×2 (07:51→19:24)
[2019-02-10] MEDS: IPRATROPIUM-ALBUTEROL 3 ML NEB INHALATION SCH ×4 (07:51→19:24)
[2019-02-10] MEDS: ENOXAPARIN 40 MG/0.4 ML SYRINGE SQ SCH (08:15)
[2019-02-10] MEDS: FUROSEMIDE 40 MG TAB PO SCH ×2 (08:16→15:16)
[2019-02-10] MEDS: HYDROcodone/APAP 7.5-325MG 1 EACH TAB PO PRN ×3 (08:16→22:30)
[2019-02-10] MEDS: DOCUSATE 100 MG CAP PO SCH ×2 (08:16→21:12)
[2019-02-10] MEDS: METOPROLOL SUCCINATE (ER) 25 MG TAB.ER.24H PO SCH (08:16)
[2019-02-10] MEDS: PANTOPRAZOLE 40 MG TABLET PO SCH ×2 (08:16→17:22)
[2019-02-10] MEDS: ARIPiprazole 5 MG TAB PO SCH (08:16)
[2019-02-10] MEDS: ALPRAZolam 0.5 MG TAB PO PRN ×2 (08:16→15:15)
[2019-02-10] MEDS: AMOXIC-POT CLAV 875-125MG 1 EACH TAB PO SCH ×2 (08:16→21:14)
[2019-02-10] MEDS: POTASSIUM CHLORIDE ER 10 MEQ TAB.ER.PRT PO SCH (08:17)
[2019-02-10] MEDS: predniSONE 10 MG TAB PO SCH (08:17)
[2019-02-10 10:48] LABS: CA27.29 Breast Ca Marker 8.5 U/mL (0.0-38.5)
[2019-02-10] MEDS ORDERED: ERGOCALCIFEROL 50,000 UNIT CAP PO SCH (12:00)
--- NOTE | 2019-02-10 14:35 | P.PN ---
Subjective Progress Note Date: 02/10/19 This is a 63-year-old female with a known past medical history of BOOP, Hodgkin's lymphoma status post chemoradiation in 1978, history of breast cancer status post mastectomy, renal cancer status post partial nephrectomy, hypertension, hyperlipidemia, T8 compression fracture, hypothyroidism, chronic persistent asthma, sinus headache, and congestive heart failure. Patient was just discharged from the hospital on January 29 and had been treated for congestive heart failure exacerbation COPD exacerbation and bronchitis. Patient reports completing her antibiotic treatment and had 2 days left of the prednisone taper. Patient reports 3 days ago had worsening right rib pain. She reports having this rib pain for a few weeks now. Yesterday the pain became so severe she had 2 episodes of vomiting. She took [place] with some relief. She came into the ER for further evaluation and treatment. Chest x-ray done in the ER had showed stable left basilar pleural-parenchymal opacity which may reflect a combination of infiltrate, atelectasis and pleural effusion. Patient started on Rocephin in the ER and pulmonary had been consulted. Chest x-ray also reported remote right-sided rib fractures. X-ray of the right ribs have been ordered to rule out an acute fracture. Patient denies any injury to the ribs. There is no skin rash or lesions. However patient has chronically been on steroids for her lung issues and does report a chronic cough. White count elevated at 21.5 but patient has been on prednisone at home. BUN 26 lactic 1.3 troponin negative. BNP elevated at 3680. Patient denies any fever, chills, sweats, bowel movement changes or urinary symptoms. She does admit to a mild cough nonproductive. Reports some shortness of breath but nothing too significant. However, she does report still being short of breath with ambulating. When the right rib pain becomes severe she also is short of breath. On 02/07/2019 patient is alert and oriented 3 currently sitting up in chair. Patient states some improvement with shortness of breath. Patient remains on IV Lasix and prednisone. Placenta patient requesting ultrasound of gallbladder due to increased right upper quadrant pain radiating to back. On examination patient some tenderness noted to right upper quadrant. Patient denies nausea vomiting or diarrhea. Patient denies any urinary burning or frequency. Patient denies chest pain or shortness breath 02/08/2019 patient still complaining of right rib pain as well as now c omplaining of right scapula shoulder pain and back pain. Patient reports that she was supposed to have a bone scan at some time outpatient. Has not had a chance to have this done. She usually follows with Dr. Cheng her oncologist. Oncology will be consulted for further evaluation in regards to her bone pain and cancer history. Patient was Rocephin was discontinued and she is currently on Augmentin for a possible bronchitis. Pulmonary felt that pneumonia was unlikely. Ultrasound of the gallbladder showed no evidence of gallstones. She is followed by cardiology as well. Patient reports improvement in her breathing. Denies any chest pain. Denies any nausea or vomiting. His been 2 d ays since her last bowel movement stool softener has been added. Denies any burning with urination. She reports that Dilaudid is helping with the pain. [place] be added as well as a muscle relaxer to help control pain. 02/09/2019 patient reports still having right-sided rib pain shoulder pain and upper back pain. She had minimal improvement with the [place] for pain. She did not take the muscle relaxer. Educated patient that she does have muscle relaxers available as needed. She was seen by oncology service. Their note is pending. Per patient. Oncology is ordered an MRI to further evaluate her pain. Patient reports that her shortness of breath has completely resolved and her breathing is back to baseline. She's had decrease in her lower extremity edema. We will discontinue the IV Lasix and place her on oral Lasix. Patient denies any chest pain or cough at this time. Denies any nausea or vomiting. Reports having bowel movements. Denies any difficulty urinating On 02/10/2019 patient is alert and oriented 3 in no apparent distress she is still complaining of upper back pain radiating to the right side of her chest otherwise no complaints there is no fever or chills no headache or dizziness no chest pain no shortness of breath no cough no nausea or vomiting no abdominal pain no diarrhea and no urinary symptoms Objective - Vital Signs Vital signs: Vital Signs Temp 97.0 F L 02/10/19 11:45 Pulse 69 02/10/19 11:45 Resp 16 02/10/19 11:45 BP 103/55 02/10/19 11:45 Pulse Ox 100 02/10/19 11:45 Intake & Output 02/09/19 02/10/19 02/10/19 18:59 06:59 18:59 Intake Total 940 Balance 940 Weight 76.5 kg Intake: Oral 940 Other: Voiding Method Toilet Toilet Toilet # Voids 2 3 3 - Exam In general patient is alert and oriented 3 in no apparent distress Head normocephalic and atraumatic Neck supple no JVD no goiter Lungs crackles on the left lower lobe no wheezing. Improving air movement Heart regular rate and rhythm S1-S2, no rub or gallop Abdomen is soft nontender nondistended positive bowel sounds no hepatosplenomegaly Extremities decreased edema. Trace edema bilaterally Neuro no gross focal neurological deficits - Labs CBC & Chem 7: 02/10/19 05:38 02/10/19 05:38 Labs: Abnormal Lab Results - Last 24 Hours (Table) 02/10/19 02/10/19 Range/Units 05:38 05:38 WBC 13.3 H (3.8-10.6) k/uL RDW 18.1 H (11.5-15.5) % Neutrophils # 10.6 H (1.3-7.7) k/uL Chloride 97 L (98-107) mmol/L Carbon Dioxide 37 H (22-30) mmol/L BUN 28 H (7-17) mg/dL Total Protein 5.4 L (6.3-8.2) g/dL Albumin 3.1 L (3.5-5.0) g/dL Microbiology - Last 24 Hours (Table) 02/06/19 13:27 Blood Culture - Preliminary Blood No Growth after 72 hours Assessment and Plan Plan: 1. Right rib pain , right scapula and upper back pain:Chest x-ray completed showing fractures of right ribs 7 and 8 of indeterminate age. Patient denies any injury. And Dilaudid 0.5 mg IV every 4 hours as needed for pain. Ultrasound: Gallbladder negative for any gallstones. Patient is still complaining of right rib pain as well as shoulder and back pain. Add [place] 7.5 one every 6 hours as needed for pain. Also on muscle relaxer Flexeril 10 g twice a day as needed for muscle spasms. Patient's symptoms may be musculoskeletal but will await further oncology recommendations. Patient's by oncology they have ordered an MRI for further evaluation of her pain . MRI revealed further progression of T8 vertebral fracture and a new vertebral fr acture at T11 at this time consultation for Dr. Kwon was initiated 2. acute tracheal bronchitis continue Augmentin. Patient evaluated by pulmonary who felt there was no pneumonia. They discontinued Rocephin. Pneumonia ruled out 3. constipation add Colace 4. Acute on Chronic diastolic CHF exacerbation: Echo in May shows an EF of 50- 55%. Echo from cardiology office in September shows an EF of 45%. BNP 3680 on admission. Patient evaluated by cardiology. Discontinue IV Lasix and restart patient's home Lasix of 40 mg by mouth twice a day 5. History of COPD: Patient currently on prednisone taper for COPD exacerbation and bronchitis from recent hospitalization. Will resume the prednisone and nebulizer treatments. 6. History of bronchiolitis obliterans organizing pneumonia 7. History of Hodgkin's lymphoma status post chemoradiation 1978 8. History of breast cancer status post mastectomy 9. History of renal cancer status post partial nephrectomy 10. Hypertension 11. Hyperlipidemia 12. History of T8 compression fracture 13. Hypothyroidism 14. Chronic persistent asthma 15. Leukocytosis patient has been on prednisone. Continue to monitor. GI prophylaxis Protonix and DVT prophylaxis Lovenox
[2019-02-10] MEDS: SERTRALINE 100 MG TAB PO SCH (17:22)
[2019-02-10] MEDS: FAMOTIDINE 20 MG TAB PO PRN (21:12)
[2019-02-10] MEDS: SPIRONOLACTONE 25 MG TAB PO SCH (21:12)
[2019-02-10] MEDS: ATORVASTATIN 20 MG TAB PO SCH (21:13)
[2019-02-10] MEDS: LORATADINE 10 MG TAB PO PRN (21:13)
[2019-02-11] MEDS: LEVOTHYROXINE 100 MCG TAB PO SCH (06:29)
[2019-02-11] MEDS: PANTOPRAZOLE 40 MG TABLET PO SCH ×2 (07:25→17:38)
[2019-02-11] MEDS: HYDROcodone/APAP 7.5-325MG 1 EACH TAB PO PRN ×2 (07:25→21:25)
[2019-02-11] MEDS: ALPRAZolam 0.5 MG TAB PO PRN ×2 (07:25→19:30)
[2019-02-11] MEDS: ARIPiprazole 5 MG TAB PO SCH (07:27)
[2019-02-11] MEDS: AMOXIC-POT CLAV 875-125MG 1 EACH TAB PO SCH ×2 (07:27→21:25)
[2019-02-11] MEDS: METOPROLOL SUCCINATE (ER) 25 MG TAB.ER.24H PO SCH (07:34)
[2019-02-11] MEDS: FUROSEMIDE 40 MG TAB PO SCH ×2 (07:34→17:38)
[2019-02-11] MEDS: DOCUSATE 100 MG CAP PO SCH ×2 (07:35→21:25)
[2019-02-11] MEDS: ENOXAPARIN 40 MG/0.4 ML SYRINGE SQ SCH (07:35)
[2019-02-11] MEDS: predniSONE 10 MG TAB PO SCH (07:35)
[2019-02-11] MEDS: POTASSIUM CHLORIDE ER 10 MEQ TAB.ER.PRT PO SCH (07:36)
[2019-02-11] MEDS: IPRATROPIUM-ALBUTEROL 3 ML NEB INHALATION SCH ×4 (08:02→19:42)
[2019-02-11] MEDS: SYMBICORT 160-4.5 MCG INHALER INHALATION SCH ×2 (08:03→19:42)
--- NOTE | 2019-02-11 10:12 | P.CNOR ---
History of Present Illness - HPI Consult date: 02/11/19 History of present illness: This is a 63-year-old female who is admitted for severe rib pain. Patient was recently admitted for exacerbation of congestive heart failure and COPD along with bronchitis and was discharged on 01/29/2019. Patient states that it was the pain over her right ribs that brought her back to the emergency room. P fer denies any new injury but states that she has a history of a T8 compression fracture and has been seen by Dr. Johnson for this. Patient states that she does have a back brace. A chest x-ray from 02/07/2019 showed likely old fractures of the seventh and eighth ribs along with a left pleural effusion. Patient states that her pain radiates from her back around the body to the front of her ribs. Patient denies any numbness, weakness or tingling in the upper and lower extremities. Review of Systems See HPI. Past Medical History Past Medical History: Asthma, Cancer, Heart Failure, COPD, GERD/Reflux, Osteoarthritis (OA), Sleep Apnea/CPAP/BIPAP, Thyroid Disorder Additional Past Medical History / Comment(s): BOOP, cardiomyopathy, cardiac murmur, anemia, past multiple thoracic compression fractures with T8 being worse, back pain, osteoporosis, R rib fracture, Hodgkins Lymphoma status post chemo and radiation chest area in 1978; L Breast CA-status post mastectomy(sx only), R renal carcinoma with partial nephrectomy, cervical cancer with surgery, ASHKAN with CPAP use, hypothyroid, hiatal hernia, sinus problems. History of Any Multi-Drug Resistant Organisms: None Reported Past Surgical History: Adenoidectomy, Breast Surgery, Section, Hysterectomy, Orthopedic Surgery, Tonsillectomy Additional Past Surgical History / Comment(s): Spleenectomy, laparotomy, colonoscopy, EGD, bilateral 5th toe surgery for spurs, L breast mastectomy with breast reconstruction, R breast implant since removed, bronchoscopy/lung bx, rt kidney partial nephrectomy, bilateral cataract removals with lens implants, ALDEN. Past Anesthesia/Blood Transfusion Reactions: No Reported Reaction Additional Past Anesthesia/Blood Transfusion Reaction / Comm: clausterphobia (mri's) Smoking Status: Former smoker - Past Family History Mother Family Medical History: Osteoarthritis (OA) Additional Family Medical History / Comment(s): glaucoma Brother(s) Additional Family Medical History / Comment(s): MS Father Family Medical History: Liver Disease, Myocardial Infarction ([place]) Additional Family Medical History / Comment(s): age 70 -mi, alcoholic Medications and Allergies Home Medications Medication Instructions Recorded Confirmed Type Budesonide-Formot 160-4.5 Mcg 2 puff INHALATION RT-BID 10/05/16 02/06/19 History [Symbicort 160-4.5 Mcg Inhaler] Levothyroxine Sodium [Synthroid] 100 mcg PO DAILY 10/05/16 02/06/19 History Metoprolol Succinate (ER) [Toprol 25 mg PO DAILY 10/05/16 02/06/19 History XL] Montelukast [Singulair] 10 mg PO HS 10/05/16 02/06/19 History Sertraline [Zoloft] 200 mg PO AC-SUPPER 10/05/16 02/06/19 History Albuterol Sulfate [Proair Hfa] 2 puff INHALATION RT-Q6H PRN 04/06/17 02/06/19 History Acyclovir 400 mg PO DAILY PRN 05/13/17 02/06/19 History Acyclovir [Zovirax] 1 applic TOPICAL 5XD PRN 05/13/17 02/06/19 History Cetirizine HCl [Zyrtec] 10 mg PO HS PRN 05/13/17 02/06/19 History Ranitidine HCl [Zantac] 150 mg PO HS PRN 05/13/17 02/06/19 History ALPRAZolam [Xanax] 0.5 mg PO Q8H PRN 06/19/18 02/06/19 History Ergocalciferol [Vitamin D2 50,000 unit PO SA 06/19/18 02/06/19 History (DRISDOL)] Omeprazole 40 mg PO BID 06/19/18 02/06/19 History Ipratropium-Albuterol Nebulize 3 ml INHALATION RT-QID ampul.neb 07/09/18 02/06/19 Rx [Duoneb 0.5 mg-3 mg/3 ml Soln] Potassium Chloride [K-Tab ER] 10 meq PO DAILY 09/13/18 02/06/19 History Spironolactone [Aldactone] 25 mg PO HS 09/13/18 02/06/19 History Furosemide [Lasix] 40 mg PO BID@0900,1600 #60 tab 09/19/18 02/06/19 Rx ARIPiprazole [Abilify] 5 mg PO DAILY 01/23/19 02/06/19 History Ondansetron [Zofran] 1 tab PO Q6HR PRN 01/24/19 02/06/19 History Simvastatin [Zocor] 40 mg PO HS #30 tab 01/29/19 02/06/19 Rx guaiFENesin [Mucinex] 600 mg PO Q12HR #10 tablet.er 01/29/19 02/06/19 Rx predniSONE See Taper PO DIRECTED 02/06/19 02/06/19 History Allergies Allergy/AdvReac Type Severity Reaction Status Date / Time No Known Allergies Allergy Verified 02/06/19 10:51 Physical Examination On exam patient is resting comfortably in a chair no acute distress. Patient is alert and oriented 3. There is no deformity or step-off with palpation of the spine. Moderate kyphosis noted. Skin is intact. Patient has full range of motion of bilateral upper and lower extremities. Patient has good range of motion of the head and neck. Sensation is intact. Neurovascular status and circulatory status are intact. Results An MRI of the thoracic spine dated 02/09/2019 shows a 75% compression deformity of T8 vertebra with posterior fragment extension at T8 vertebral body with thoracic spinal stenosis. Impingement on the thoracic spinal cord. Fracture pattern is more likely related to insufficiency fractures and osteoporosis. No asymmetric bone destruction seen to suggest a pathologic fracture. There is progression of the compression deformity of T8 compared to old exam. T11 fracture is new compared to old exam. Impingement on the thoracic spinal cord at T8 is worse than old exam. - Labs Labs: Microbiology - Last 24 Hours (Table) 02/09/19 19:20 Gram Stain - Preliminary Sputum 02/06/19 13:27 Blood Culture - Preliminary Blood No Growth after 96 hours H & H 02/06/19 02/07/19 02/08/19 Range/Units 10:25 07:15 08:20 Hgb 12.7 12.5 12.4 (11.4-16.0) gm/dL Hct 40.1 40.1 41.0 (34.0-46.0) % 02/09/19 02/10/19 Range/Units 07:21 05:38 Hgb 11.9 11.6 (11.4-16.0) gm/dL Hct 38.1 36.0 (34.0-46.0) % Coagulation 02/06/19 Range/Units 14:13 INR 0.9 (<1.2) Result Diagrams: 02/10/19 05:38 02/10/19 05:38 Assessment and Plan Assessment: History of Hodgkin's lymphoma BOOP History of breast cancer with mastectomy History of renal cancer with partial nephrectomy Hypertension Hyperlipidemia Hypothyroidism Chronic persistent asthma Congestive heart failure COPD (1) Compression fracture of T8 vertebra Current Visit: Yes Status: Acute Code(s): S22.060A - WEDGE COMPRESSION FRACTURE OF T7-T8 VERTEBRA, INIT SNOMED Code(s): 497680563 (2) Compression fracture of T11 vertebra Current Visit: Yes Status: Acute Code(s): S22.080A - WEDGE COMPRESSION FRACTURE OF T11-T12 VERTEBRA, INIT SNOMED Code(s): 167811729 Plan: 1. Patient is to wear her TLSO when out of bed. Patient states that she will have someone bring her brace to the hospital for her. 2. Continue pain control. 3. No surgical intervention planned at this time. Will continue to follow the patient closely.
--- NOTE | 2019-02-11 15:55 | P.PN ---
Subjective Progress Note Date: 02/11/19 This is a 63-year-old female with a known past medical history of BOOP, Hodgkin's lymphoma status post chemoradiation in 1978, history of breast cancer status post mastectomy, renal cancer status post partial nephrectomy, hypertension, hyperlipidemia, T8 compression fracture, hypothyroidism, chronic persistent asthma, sinus headache, and congestive heart failure. Patient was just discharged from the hospital on January 29 and had been treated for congestive heart failure exacerbation COPD exacerbation and bronchitis. Patient reports completing her antibiotic treatment and had 2 days left of the prednisone taper. Patient reports 3 days ago had worsening right rib pain. She reports having this rib pain for a few weeks now. Yesterday the pain became so severe she had 2 episodes of vomiting. She took [place] with some relief. She came into the ER for further evaluation and treatment. Chest x-ray done in the ER had showed stable left basilar pleural-parenchymal opacity which may reflect a combination of infiltrate, atelectasis and pleural effusion. Patient started on Rocephin in the ER and pulmonary had been consulted. Chest x-ray also reported remote right-sided rib fractures. X-ray of the right ribs have been ordered to rule out an acute fracture. Patient denies any injury to the ribs. There is no skin rash or lesions. However patient has chronically been on steroids for her lung issues and does report a chronic cough. White count elevated at 21.5 but patient has been on prednisone at home. BUN 26 lactic 1.3 troponin negative. BNP elevated at 3680. Patient denies any fever, chills, sweats, bowel movement changes or urinary symptoms. She does admit to a mild cough nonproductive. Reports some shortness of breath but nothing too significant. However, she does report still being short of breath with ambulating. When the right rib pain becomes severe she also is short of breath. On 02/07/2019 patient is alert and oriented 3 currently sitting up in chair. Patient states some improvement with shortness of breath. Patient remains on IV Lasix and prednisone. Placenta patient requesting ultrasound of gallbladder due to increased right upper quadrant pain radiating to back. On examination patient some tenderness noted to right upper quadrant. Patient denies nausea vomiting or diarrhea. Patient denies any urinary burning or frequency. Patient denies chest pain or shortness breath 02/08/2019 patient still complaining of right rib pain as well as now c omplaining of right scapula shoulder pain and back pain. Patient reports that she was supposed to have a bone scan at some time outpatient. Has not had a chance to have this done. She usually follows with Dr. Cheng her oncologist. Oncology will be consulted for further evaluation in regards to her bone pain and cancer history. Patient was Rocephin was discontinued and she is currently on Augmentin for a possible bronchitis. Pulmonary felt that pneumonia was unlikely. Ultrasound of the gallbladder showed no evidence of gallstones. She is followed by cardiology as well. Patient reports improvement in her breathing. Denies any chest pain. Denies any nausea or vomiting. His been 2 d ays since her last bowel movement stool softener has been added. Denies any burning with urination. She reports that Dilaudid is helping with the pain. [place] be added as well as a muscle relaxer to help control pain. 02/09/2019 patient reports still having right-sided rib pain shoulder pain and upper back pain. She had minimal improvement with the [place] for pain. She did not take the muscle relaxer. Educated patient that she does have muscle relaxers available as needed. She was seen by oncology service. Their note is pending. Per patient. Oncology is ordered an MRI to further evaluate her pain. Patient reports that her shortness of breath has completely resolved and her breathing is back to baseline. She's had decrease in her lower extremity edema. We will discontinue the IV Lasix and place her on oral Lasix. Patient denies any chest pain or cough at this time. Denies any nausea or vomiting. Reports having bowel movements. Denies any difficulty urinating On 02/10/2019 patient is alert and oriented 3 in no apparent distress she is still complaining of upper back pain radiating to the right side of her chest otherwise no complaints there is no fever or chills no headache or dizziness no chest pain no shortness of breath no cough no nausea or vomiting no abdominal pain no diarrhea and no urinary symptoms. On 02/11/2019 patient was seen and examined on the medical floor she is complaining of upper back pain radiating to the right side of her chest otherwise no complaints there is no fever or chills no headache or dizziness no chest pain no shortness of breath no cough no nausea or vomiting no abdominal pain no diarrhea and no urinary symptoms Objective - Vital Signs Vital signs: Vital Signs Temp 97.7 F 02/11/19 11:51 Pulse 94 02/11/19 15:42 Resp 16 02/11/19 11:51 BP 98/52 02/11/19 11:51 Pulse Ox 97 02/11/19 15:42 Intake & Output 02/10/19 02/11/19 02/11/19 18:59 06:59 18:59 Intake Total 400 240 Balance 400 240 Weight 76.5 kg Intake: Oral 400 240 Other: Voiding Method Toilet Toilet # Voids 3 2 - Exam In general patient is alert and oriented 3 in no apparent distress Head normocephalic and atraumatic Neck supple no JVD no goiter Lungs crackles on the left lower lobe no wheezing. Improving air movement Heart regular rate and rhythm S1-S2, no rub or gallop Abdomen is soft nontender nondistended positive bowel sounds no hepatosplenomegaly Extremities decreased edema. Trace edema bilaterally Neuro no gross focal neurological deficits - Labs CBC & Chem 7: 02/10/19 05:38 02/10/19 05:38 Labs: Microbiology - Last 24 Hours (Table) 02/06/19 13:27 Blood Culture - Preliminary Blood No Growth after 120 hours 02/09/19 19:20 Gram Stain - Preliminary Sputum Sputum Culture - Preliminary Assessment and Plan Plan: 1. Right rib pain , right scapula and upper back pain:Chest x-ray completed showing fractures of right ribs 7 and 8 of indeterminate age. Patient denies any injury. And Dilaudid 0.5 mg IV every 4 hours as needed for pain. Ultrasound: Gallbladder negative for any gallstones. Patient is still complaining of right rib pain as well as shoulder and back pain. Add [place] 7.5 one every 6 hours as needed for pain. Also on muscle relaxer Flexeril 10 g twice a day as needed for muscle spasms. Patient's symptoms may be musculoskeletal but will await further oncology recommendations. Patient's by oncology they have ordered an MRI for further evaluation of her pain . MRI revealed further progression of T8 vertebral fracture and a new vertebral fracture at T11 at this time consultation for Dr. Kwon was initiated 2. acute tracheal bronchitis continue Augmentin. Patient evaluated by pulmonary who felt there was no pneumonia. They discontinued Rocephin. Pneumonia ruled out 3. constipation add Colace 4. Acute on Chronic diastolic CHF exacerbation: Echo in May shows an EF of 50- 55%. Echo from cardiology office in September shows an EF of 45%. BNP 3680 on admission. Patient evaluated by cardiology. Discontinue IV Lasix and restart patient's home Lasix of 40 mg by mouth twice a day 5. History of COPD: Patient currently on prednisone taper for COPD exacerbation and bronchitis from recent hospitalization. Will resume the prednisone and nebulizer treatments. 6. History of bronchiolitis obliterans organizing pneumonia 7. History of Hodgkin's lymphoma status post chemoradiation 1978 8. History of breast cancer status post mastectomy 9. History of renal cancer status post partial nephrectomy 10. Hypertension 11. Hyperlipidemia 12. History of T8 compression fracture 13. Hypothyroidism 14. Chronic persistent asthma 15. Leukocytosis patient has been on prednisone. Continue to monitor. GI prophylaxis Protonix and DVT prophylaxis Lovenox
[2019-02-11] MEDS: SERTRALINE 100 MG TAB PO SCH (17:38)
[2019-02-11] MEDS: MONTELUKAST 10 MG TAB PO SCH (21:25)
[2019-02-11] MEDS: ATORVASTATIN 20 MG TAB PO SCH (21:25)
[2019-02-11] MEDS: SPIRONOLACTONE 25 MG TAB PO SCH (21:25)
[2019-02-12 05:05] VITALS: TEMP 97.9
[2019-02-12] MEDS: LEVOTHYROXINE 100 MCG TAB PO SCH (05:42)
[2019-02-12] MEDS: HYDROmorphone 0.5 MG/0.5 ML SYRINGE IVP PRN (05:42)
[2019-02-12] MEDS: SYMBICORT 160-4.5 MCG INHALER INHALATION SCH (06:46)
[2019-02-12] MEDS: IPRATROPIUM-ALBUTEROL 3 ML NEB INHALATION SCH ×3 (06:46→15:10)
[2019-02-12] MEDS: FUROSEMIDE 40 MG TAB PO SCH (07:50)
[2019-02-12] MEDS: ENOXAPARIN 40 MG/0.4 ML SYRINGE SQ SCH (07:50)
[2019-02-12] MEDS: PANTOPRAZOLE 40 MG TABLET PO SCH (07:50)
[2019-02-12] MEDS: METOPROLOL SUCCINATE (ER) 25 MG TAB.ER.24H PO SCH (07:50)
[2019-02-12] MEDS: predniSONE 10 MG TAB PO SCH (07:50)
[2019-02-12] MEDS: DOCUSATE 100 MG CAP PO SCH (07:50)
[2019-02-12] MEDS: POTASSIUM CHLORIDE ER 10 MEQ TAB.ER.PRT PO SCH (07:50)
[2019-02-12] MEDS: AMOXIC-POT CLAV 875-125MG 1 EACH TAB PO SCH (07:51)
[2019-02-12] MEDS: ARIPiprazole 5 MG TAB PO SCH (07:51)
--- NOTE | 2019-02-12 08:47 | P.PN ---
Progress Note - Text Progress Note Date: 02/12/19 Patient is a very pleasant 63-year-old female who is well known to our service who is seen and examined at bedside for follow-up evaluation in regards to her chronic T8 compression fracture deformity and acute to subacute T11 compression fracture deformity. She states her pain is better controlled today as compared to the time of her presentation to the emergency department on 02/06/2019. She does continue to have some mid thoracic back pain with right-sided pain wrapping over the right ribs, and under the breast was anterior chest. She was previously prescribed a Spinomed TLSO brace for her T8 compression fracture deformity. During this admission she was found to have a T11 compression fracture deformity. She denies any recent injuries. She denies any increased pain with coughing or sneezing. She denies any lower extremity radiculopathy or weakness bilaterally. During this admission she has had an ultrasound performed for further evaluation as she states December 2017 she had a slow growing tumor removed off her right kidney. No significant findings were found at that time. X-rays of the ribs were also taken which showed evidence of right-sided rib fractures at bedside 7 and 8 which could be subacute. Patient states she has had further evaluation in regards to her lungs and heart and feels she has improved in that regard. She does have a history of bronchiolitis obliterans with organizing pneumonia and history of steroid use. She states her primary care provider is considering prescribed medication to improve her osteopenia/osteoporosis. She has a significant medical history which includes treatment for Hodgkin's lymphoma in 1978, breast cancer with mastectomy in 2004, and kidney cancer with removal of tumor in 2017. She also presented with a latissimus dorsi flap and lung biopsy. Physical exam: Patient is awake, alert, and oriented 3 Vital signs stable Good chest excursion with deep inspiration and expiration Examination of thoracic and lumbar lumbar spine reveals skin is intact with no abrasions, lacerations, or bruises; no erythema, purulence or signs of infection No significant pain with palpation along the midline of the thoracic or lumbar spines Evidence of a well-healed incision over the left lateral thoracic spine from previous latissimus dorsi flap Evidence of a well-healed incision over the left lateral thoracic spine from previous biopsy Dorsiflexion, plantarflexion, and extensor hallucis longus positive sustained bilaterally Lower extremity strength 5/5 bilaterally Pertinent studies: MRI of the thoracic spine performed on 02/09/2019: Progression of chronic wedging compression fracture deformity at T8 approximately 80% to 90% height loss along with some posterior fragment extension into the spinal canal with impingement of the thoracic spinal cord as compared to previous study taken on 06/23/2018; T11 new compression fracture deformity with approximately 25% height loss as compared to prior imaging; wedging at T5 and T6 with minimal height loss of approximately 5%; left pleural effusion Gallbladder ultrasound performed on 02/08/2019: No shadowing mobile gallstones or ultrasound evidence for acute cholecystitis Chest x-ray performed on 02/07/2019: Persistent interstitial edema and left pleural effusion with associated left basilar airspace disease, likely atelectasis in which findings suggest underlying decompensated congestive heart failure Ribs x-ray taken on 02/06/2019: Rib fractures on the right at ribs 7 and 8 of indeterminate age with mild apparent callus formation suggesting a nonacute fracture although may be relatively recent Assessment: Chronic T8 wedging compression fracture deformity with approximately 80% to 90% height loss which has worsened as compared to previous study with posterior extension to the spinal canal with impingement of the thoracic spinal cord Nontraumatic acute to subacute T11 compression fracture deformity with approximately 25% height loss Right-sided rib pain Right-sided rib fractures at T7 and T8 of indeterminate age but may be subacute Thoracic back pain Thoracic radiculopathy Thoracic osteopenia Biopsy-proven bronchiolitis obliterans organizing pneumonia History of prolonged long-term high-dose steroid use History of renal cancer with mass removed in December 2017 History of breast cancer with mastectomy in 2004 History of Hodgkin's lymphoma Plan: 1. Patient will be discussed in detail with Dr. Giuseppe Johnson. At this time, we'll currently plan to continue with conservative treatment. Patient does have known T8 compression fracture deformity and acute to subacute T11 compression fracture deformity. She does continue to have thoracic back pain with r adiculopathy symptoms in her thoracic spine. We will continue with fracture care from a conservative standpoint. She feels her symptoms have improved during her admission. She is planning to be discharged home. Patient is encouraged to continue wearing her Spinomed TLSO for comfort and support while sitting upright at greater than 45, during increase activities, during ambulation. Brace does not have to be worn while lying in bed or bathing. We'll plan to have the patient follow-up in outpatient setting in approximately 2-3 weeks for further evaluation. We'll plan to further evaluate imaging at that time as well as review imaging we have our office. We are not currently planning for surgical prevention acutely. Patient is clear for discharge from an orthopedic spine standpoint. Following discharge, patient may follow-up with Perico Domingo PA-C or Dr. Giuseppe Johnson at [facility]. 2. Patient may continue to be seen and examined by medicine, pulmonology, oncology, and other medical providers
[2019-02-12 10:22] VITALS: BMI 29.5
[2019-02-12] MEDS: HYDROcodone/APAP 7.5-325MG 1 EACH TAB PO PRN (11:42)
[2019-02-12] MEDS: ALPRAZolam 0.5 MG TAB PO PRN (11:43)
[2019-02-12 12:13] VITALS: BP 93/60; RESP 16
--- NOTE | 2019-02-12 14:13 | P.DS ---
Providers Date of admission: 02/06/19 13:14 Expected date of discharge: 02/12/19 Attending physician: Michelle Naqvi Consults: 02/06/19 13:14 Consult Physician Routine Consulting Provider: Makayla Salcedo Consult Reason/Comments: Pneumonia Do you want consulting provider notified?: Yes 02/06/19 15:51 Consult Physician Routine Consulting Provider: Amber Jasso Consult Reason/Comments: CHF exacerbation Do you want consulting provider notified?: Yes 02/08/19 13:13 Consult Physician Routine Consulting Provider: Cholo Cunningham Consult Reason/Comments: Bone pain with previous cancer history Do you want consulting provider notified?: Yes 02/10/19 14:30 Consult Physician Routine Consulting Provider: Clifford Johnson Consult Reason/Comments: vertebral fracture Do you want consulting provider notified?: Yes Primary care physician: Michelle Naqvi [facility] Hospital Course: Discharge diagnosis 1. Right rib pain , right scapula and upper back pain:Chest x-ray completed showing fractures of right ribs 7 and 8 of indeterminate age. Patient denies any injury. Ultrasound: Gallbladder negative for any gallstones. MRI revealed further progression of T8 vertebral fracture and a new vertebral fracture at T11. Patient seen by Dr. Johnson. No surgical intervention at this time. She'll follow-up with him in the office. Continue back brace. Continue the [place] for pain control. Patient's back fractures are likely due to osteoporosis from being on steroids. She'll be following up with Dr. Naqvi in the office regarding osteoporosis medications. 2. acute tracheal bronchitis continue Augmentin. Patient evaluated by pulmonary who felt there was no pneumonia. They discontinued Rocephin. Pneumonia ruled out 3. constipation add Colace 4. Acute on Chronic diastolic CHF exacerbation: Echo in May shows an EF of 50- 55%. Echo from cardiology office in September shows an EF of 45%. BNP 3680 on admission. Patient evaluated by cardiology. Discontinue IV Lasix and restart patient's home Lasix of 40 mg by mouth twice a day 5. History of COPD: Patient currently on prednisone taper for COPD exacerbation and bronchitis from recent hospitalization. Will resume the prednisone and nebulizer treatments. 6. History of bronchiolitis obliterans organizing pneumonia 7. History of Hodgkin's lymphoma status post chemoradiation 1978 8. History of breast cancer status post mastectomy 9. History of renal cancer status post partial nephrectomy 10. Hypertension 11. Hyperlipidemia 12. History of T8 compression fracture 13. Hypothyroidism 14. Chronic persistent asthma 15. Leukocytosis secondary to steroids Hospital course This is a 63-year-old female with a known past medical history of BOOP, Hodgkin's lymphoma status post chemoradiation in 1978, history of breast cancer status post mastectomy, renal cancer status post partial nephrectomy, hypertension, hyperlipidemia, T8 compression fracture, hypothyroidism, chronic persistent asthma, sinus headache, and congestive heart failure. Patient was just discharged from the hospital on January 29 and had been treated for congestive heart failure exacerbation COPD exacerbation and bronchitis. Patient reports completing her antibiotic treatment and had 2 days left of the prednisone taper. Patient reports 3 days ago had worsening right rib pain. She reports having this rib pain for a few weeks now. Yesterday the pain became so severe she had 2 episodes of vomiting. She took [place] with some relief. She came into the ER for further evaluation and treatment. Chest x-ray done in the ER had showed stable left basilar pleural-parenchymal opacity which may reflect a combination of infiltrate, atelectasis and pleural effusion. Patient started on Rocephin in the ER and pulmonary had been consulted. Chest x-ray also reported remote right-sided rib fractures. X-ray of the right ribs have been ordered to rule out an acute fracture. Patient denies any injury to the ribs. There is no skin rash or lesions. However patient has chronically been on steroids for her lung issues and does report a chronic cough. White count elevated at 21.5 but patient has been on prednisone at home. BUN 26 lactic 1.3 troponin negative. BNP elevated at 3680. Patient denies any fever, chills, sweats, bowel movement changes or urinary symptoms. She does admit to a mild cough nonproductive. Reports some shortness of breath but nothing too significant. However, she does report still being short of breath with ambulating. When the right rib pain becomes severe she also is short of breath. On 02/07/2019 patient is alert and oriented 3 currently sitting up in chair. Patient states some improvement with shortness of breath. Patient remains on IV Lasix and prednisone. Placenta patient requesting ultrasound of gallbladder due to increased right upper quadrant pain radiating to back. On examination patient some tenderness noted to right upper quadrant. Patient denies nausea vomiting or diarrhea. Patient denies any urinary burning or frequency. Patient denies chest pain or shortness breath 02/08/2019 patient still complaining of right rib pain as well as now complaining of right scapula shoulder pain and back pain. Patient reports that she was supposed to have a bone scan at some time outpatient. Has not had a chance to have this done. She usually follows with Dr. Cheng her oncologist. Oncology will be consulted for further evaluation in regards to her bone pain and cancer history. Patient was Rocephin was discontinued and she is currently on Augmentin for a possible bronchitis. Pulmonary felt that pneumonia was unlikely. Ultrasound of the gallbladder showed no evidence of gallstones. She is followed by cardiology as well. Patient reports improvement in her breat koko. Denies any chest pain. Denies any nausea or vomiting. His been 2 days since her last bowel movement stool softener has been added. Denies any burning with urination. She reports that Dilaudid is helping with the pain. [place] be added as well as a muscle relaxer to help control pain. 02/09/2019 patient reports still having right-sided rib pain shoulder pain and upper back pain. She had minimal improvement with the [place] for pain. She did not take the muscle relaxer. Educated patient that she does have muscle relaxers available as needed. She was seen by oncology service. Their note is pending. Per patient. Oncology is ordered an MRI to further evaluate her pain. Patient reports that her shortness of breath has completely resolved and her breathing is back to baseline. She's had decrease in her lower extremity edema. We will discontinue the IV Lasix and place her on oral Lasix. Patient denies any chest pain or cough at this time. Denies any nausea or vomiting. Reports having bowel movements. Denies any difficulty urinating On 02/10/2019 patient is alert and oriented 3 in no apparent distress she is still complaining of upper back pain radiating to the right side of her chest otherwise no complaints there is no fever or chills no headache or dizziness no chest pain no shortness of breath no cough no nausea or vomiting no abdominal pain no diarrhea and no urinary symptoms. On 02/11/2019 patient was seen and examined on the medical floor she is complaining of upper back pain radiating to the right side of her chest otherwise no complaints there is no fever or chills no headache or dizziness no chest pain no shortness of breath no cough no nausea or vomiting no abdominal pain no diarrhea and no urinary symptoms 02/12/2019 patient is medically stable for discharge. She has been cleared by design consultant physicians for discharge. Her pain is likely contributing to the increase in her T8 thoracic compression fracture as well as a now a new T11 co mpression fracture. She is to continue with the TLSO back brace. She has been seen by Dr. Johnson service and no surgical intervention at this time. She'll follow-up with Dr. Alex Foley's PA in the office in one to 2 weeks. Patient will be given a prescription for [place] to help control her pain. She has 2 more days of the Augmentin to finish up treatment for her bronchitis. Patient's symptoms have improved she is medical stable for discharge. Please refer to chart for any further details. I performed an examination of the patient and discussed their management with the physician [employer]. I have reviewed the Physician [employer] Teacher's notes and agree with the documented findings and plan of care Patient Condition at Discharge: Stable Plan - Discharge Summary Discharge Rx Participant: No New Discharge Prescriptions: New Amoxic-Pot Clav 875-125Mg [Augmentin 875-125] 1 each PO Q12HR #4 tab HYDROcodone/APAP 7.5-325MG [[place] 7.5-325] 1 each PO Q6H PRN #120 tab PRN Reason: Pain Continue Budesonide-Formot 160-4.5 Mcg [Symbicort 160-4.5 Mcg Inhaler] 2 puff INHALATION RT-BID Sertraline [Zoloft] 200 mg PO AC-SUPPER Montelukast [Singulair] 10 mg PO HS Metoprolol Succinate (ER) [Toprol XL] 25 mg PO DAILY Levothyroxine Sodium [Synthroid] 100 mcg PO DAILY Albuterol Sulfate [Proair Hfa] 2 puff INHALATION RT-Q6H PRN PRN Reason: Shortness Of Breath Ranitidine HCl [Zantac] 150 mg PO HS PRN PRN Reason: Heartburn Acyclovir [Zovirax] 1 applic TOPICAL 5XD PRN PRN Reason: Cold Sores Acyclovir 400 mg PO DAILY PRN PRN Reason: Cold Sores Cetirizine HCl [Zyrtec] 10 mg PO HS PRN PRN Reason: Allergy Symptoms ALPRAZolam [Xanax] 0.5 mg PO Q8H PRN PRN Reason: Anxiety Omeprazole 40 mg PO BID Ergocalciferol [Vitamin D2 (DRISDOL)] 50,000 unit PO SA Ipratropium-Albuterol Nebulize [Duoneb 0.5 mg-3 mg/3 ml Soln] 3 ml INHALATION RT-QID ampul.neb Potassium Chloride [K-Tab ER] 10 meq PO DAILY Spironolactone [Aldactone] 25 mg PO HS Furosemide [Lasix] 40 mg PO BID@0900,1600 #60 tab ARIPiprazole [Abilify] 5 mg PO DAILY Ondansetron [Zofran] 1 tab PO Q6HR PRN PRN Reason: Nausea Simvastatin [Zocor] 40 mg PO HS #30 tab Discontinued guaiFENesin [Mucinex] 600 mg PO Q12HR #10 tablet.er predniSONE See Taper PO DIRECTED Discharge Medication List Budesonide-Formot 160-4.5 Mcg [Symbicort 160-4.5 Mcg Inhaler] 2 puff INHALATION RT-BID 10/05/16 [History] Levothyroxine Sodium [Synthroid] 100 mcg PO DAILY 10/05/16 [History] Metoprolol Succinate (ER) [Toprol XL] 25 mg PO DAILY 10/05/16 [History] Montelukast [Singulair] 10 mg PO HS 10/05/16 [History] Sertraline [Zoloft] 200 mg PO AC-SUPPER 10/05/16 [History] Albuterol Sulfate [Proair Hfa] 2 puff INHALATION RT-Q6H PRN 04/06/17 [History] Acyclovir 400 mg PO DAILY PRN 05/13/17 [History] Acyclovir [Zovirax] 1 applic TOPICAL 5XD PRN 05/13/17 [History] Cetirizine HCl [Zyrtec] 10 mg PO HS PRN 05/13/17 [History] Ranitidine HCl [Zantac] 150 mg PO HS PRN 05/13/17 [History] ALPRAZolam [Xanax] 0.5 mg PO Q8H PRN 06/19/18 [History] Ergocalciferol [Vitamin D2 (DRISDOL)] 50,000 unit PO SA 06/19/18 [History] Omeprazole 40 mg PO BID 06/19/18 [History] Ipratropium-Albuterol Nebulize [Duoneb 0.5 mg-3 mg/3 ml Soln] 3 ml INHALATION RT-QID ampul.neb 07/09/18 [Rx] Potassium Chloride [K-Tab ER] 10 meq PO DAILY 09/13/18 [History] Spironolactone [Aldactone] 25 mg PO HS 09/13/18 [History] Furosemide [Lasix] 40 mg PO BID@0900,1600 #60 tab 09/19/18 [Rx] ARIPiprazole [Abilify] 5 mg PO DAILY 01/23/19 [History] Ondansetron [Zofran] 1 tab PO Q6HR PRN 01/24/19 [History] Simvastatin [Zocor] 40 mg PO HS #30 tab 01/29/19 [Rx] Amoxic-Pot Clav 875-125Mg [Augmentin 875-125] 1 each PO Q12HR #4 tab 02/12/19 [Rx] HYDROcodone/APAP 7.5-325MG [[place] 7.5-325] 1 each PO Q6H PRN #120 tab 02/12/19 [Rx] Follow up Appointment(s)/Referral(s): Amber Jasso MD [STAFF PHYSICIAN] - 2 Weeks Perico Domingo PAC [PHYSICIAN PERSONNEL ANALYST] - 2 Weeks (Patient may follow-up with Perico Domingo PA-C or Dr. Giuseppe Johnson at [facility] in 2-3 weeks following discharge. ) [facility], [NON-STAFF] - 1 Week Michelle Naqvi MD [Primary Care Provider] - 1 Week Activity/Diet/Wound Care/Special Instructions: 1. Patient may wear Spinomed TLSO brace for comfort and support while sitting upright at greater than 45, while working with therapy, and while ambulating; patient does not have to wear the brace while lying in bed or bathing 2. Patient should avoid excessive bending, twisting, and lifting; no lifting greater than 10 pounds Diet: cardiac Activity: as tolerated Discharge Disposition: HOME SELF-CARE
[2019-02-12 15:56] VITALS: PULSE 92
== END 2019-02-12 16:16 | disposition home health service (06) | DRG 183 ==
LOC: EC 10:11 → 3NMEDONC 13:14
PROVIDERS: ADMIT Internal Medicine; ATTEND Internal Medicine
DX: S22.41XA Multiple fractures of ribs, right side, initial encounter for closed fracture (principal); I50.43 Acute on chronic combined systolic (congestive) and diastolic (congestive) heart failure; J44.0 Chronic obstructive pulmonary disease with (acute) lower respiratory infection; J44.1 Chronic obstructive pulmonary disease with (acute) exacerbation; J96.11 Chronic respiratory failure with hypoxia; M80.08XA Age-related osteoporosis with current pathological fracture, vertebra(e), initial encounter for fracture; I42.9 Cardiomyopathy, unspecified; I11.0 Hypertensive heart disease with heart failure; E03.9 Hypothyroidism, unspecified; E78.5 Hyperlipidemia, unspecified; G47.33 Obstructive sleep apnea (adult) (pediatric); I08.3 Combined rheumatic disorders of mitral, aortic and tricuspid valves; I27.20 Pulmonary hypertension, unspecified; I44.7 Left bundle-branch block, unspecified; J20.9 Acute bronchitis, unspecified; J84.10 Pulmonary fibrosis, unspecified; J84.89 Other specified interstitial pulmonary diseases; K21.9 Gastro-esophageal reflux disease without esophagitis; K59.00 Constipation, unspecified; M54.14 Radiculopathy, thoracic region; M85.88 Other specified disorders of bone density and structure, other site; Z79.51 Long term (current) use of inhaled steroids; Z79.52 Long term (current) use of systemic steroids; Z79.890 Hormone replacement therapy; Z79.899 Other long term (current) drug therapy; Z82.49 Family history of ischemic heart disease and other diseases of the circulatory system; Z85.3 Personal history of malignant neoplasm of breast; Z85.41 Personal history of malignant neoplasm of cervix uteri; Z85.528 Personal history of other malignant neoplasm of kidney; Z85.71 Personal history of Hodgkin lymphoma; Z87.891 Personal history of nicotine dependence; Z90.11 Acquired absence of right breast and nipple; Z90.12 Acquired absence of left breast and nipple; Z90.5 Acquired absence of kidney; Z90.710 Acquired absence of both cervix and uterus; Z90.81 Acquired absence of spleen; Z92.21 Personal history of antineoplastic chemotherapy; Z92.3 Personal history of irradiation; Z96.1 Presence of intraocular lens; Z98.82 Breast implant status; Z98.42 Cataract extraction status, left eye; Z98.41 Cataract extraction status, right eye
CPT/HCPCS: 36415; 71046; 72157; 76705; 80053; 83605; 83735; 83880; 84484; 85025; 85610; 85730; 86300; 87040; 87070; 87205; 93005; 94640; 94760; 96374; 96375; 99285

== ENCOUNTER 2019-02-25 13:21 | Inpatient (IN) | payer BC ==
[2019-02-25] MEDS ORDERED: IPRATROPIUM-ALBUTEROL 3 ML NEB INHALATION STA (13:46)
[2019-02-25] MEDS ORDERED: methylPREDNISolone SOD SUCCI 125 MG/2 ML VIAL IV STA (13:46)
--- NOTE | 2019-02-25 13:48 | ED ---
General Adult HPI - General Chief complaint: Shortness of Breath Stated complaint: LUCILLE Time Seen by Provider: 02/25/19 13:24 Source: patient, RN notes reviewed Mode of arrival: EMS Limitations: no limitations - History of Present Illness Initial comments: Patient is a pleasant 63-year-old female presenting to the emergency Department with complaints of difficulty breathing. Symptoms have been intermittent over the past few weeks. 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 Patient does have cough with yellow sputum. Patient has had some chills. Patient has been recently admitted. No chest pain. No leg pain or leg swelling. Patient recently saw her lung doctor and primary care physician and has been diagnosed bronchitis. - Related Data Home Medications Medication Instructions Recorded Confirmed Budesonide-Formot 160-4.5 Mcg 2 puff INHALATION RT-BID 10/05/16 02/25/19 [Symbicort 160-4.5 Mcg Inhaler] Levothyroxine Sodium [Synthroid] 100 mcg PO DAILY 10/05/16 02/25/19 Metoprolol Succinate (ER) [Toprol 25 mg PO DAILY 10/05/16 02/25/19 XL] Montelukast [Singulair] 10 mg PO HS 10/05/16 02/25/19 Sertraline [Zoloft] 200 mg PO AC-SUPPER 10/05/16 02/25/19 Albuterol Sulfate [Proair Hfa] 2 puff INHALATION RT-Q6H PRN 04/06/17 02/25/19 Acyclovir 400 mg PO DAILY PRN 05/13/17 02/25/19 Acyclovir [Zovirax] 1 applic TOPICAL 5XD PRN 05/13/17 02/25/19 Cetirizine HCl [Zyrtec] 10 mg PO HS PRN 05/13/17 02/25/19 Ranitidine HCl [Zantac] 150 mg PO HS PRN 05/13/17 02/25/19 ALPRAZolam [Xanax] 0.5 mg PO Q8H PRN 06/19/18 02/25/19 Ergocalciferol [Vitamin D2 50,000 unit PO SA 06/19/18 02/25/19 (DRISDOL)] Omeprazole 40 mg PO BID 06/19/18 02/25/19 Potassium Chloride [K-Tab ER] 10 meq PO DAILY 09/13/18 02/25/19 Spironolactone [Aldactone] 25 mg PO HS 09/13/18 02/25/19 ARIPiprazole [Abilify] 5 mg PO DAILY 01/23/19 02/25/19 Ondansetron [Zofran] 1 tab PO Q6HR PRN 01/24/19 02/25/19 HYDROcodone/APAP 7.5-325MG [[place] 1 tab PO Q6H PRN 02/25/19 02/25/19 7.5-325] Previous Rx's Medication Instructions Recorded Ipratropium-Albuterol Nebulize 3 ml INHALATION RT-QID ampul.neb 07/09/18 [Duoneb 0.5 mg-3 mg/3 ml Soln] Furosemide [Lasix] 40 mg PO BID@0900,1600 #60 tab 09/19/18 Simvastatin [Zocor] 40 mg PO HS #30 tab 01/29/19 Allergies Allergy/AdvReac Type Severity Reaction Status Date / Time No Known Allergies Allergy Verified 02/25/19 13:52 Review of Systems ROS Statement: Those systems with pertinent positive or pertinent negative responses have been documented in the HPI. ROS Other: All systems not noted in ROS Statement are negative. Constitutional: Denies: fever Eyes: Denies: eye pain ENT: Denies: ear pain Respiratory: Reports: cough, dyspnea Cardiovascular: Denies: chest pain Endocrine: Denies: fatigue Gastrointestinal: Denies: abdominal pain Genitourinary: Denies: dysuria Musculoskeletal: Denies: back pain Skin: Denies: rash Neurological: Denies: weakness Past Medical History Past Medical History: Asthma, Cancer, Heart Failure, COPD, GERD/Reflux, Osteoarthritis (OA), Sleep Apnea/CPAP/BIPAP, Thyroid Disorder Additional Past Medical History / Comment(s): BOOP, cardiomyopathy, cardiac murmur, anemia, past multiple thoracic compression fractures with T8 being worse, back pain, osteoporosis, R rib fracture, Hodgkins Lymphoma status post chemo and radiation chest area in 1978; L Breast CA-status post mastectomy(sx only), R renal carcinoma with partial nephrectomy, cervical cancer with surgery, ASHKAN with CPAP use, hypothyroid, hiatal hernia, sinus problems. History of Any Multi-Drug Resistant Organisms: None Reported Past Surgical History: Adenoidectomy, Breast Surgery, Section, Hysterectomy, Orthopedic Surgery, Tonsillectomy Additional Past Surgical History / Comment(s): Spleenectomy, laparotomy, colonoscopy, EGD, bilateral 5th toe surgery for spurs, L breast mastectomy with breast reconstruction, R breast implant since removed, bronchoscopy/lung bx, rt kidney partial nephrectomy, bilateral cataract removals with lens implants, ALDEN. Past Anesthesia/Blood Transfusion Reactions: No Reported Reaction Additional Past Anesthesia/Blood Transfusion Reaction / Comment(s): clausterphobia (mri's) Past Psychological History: Anxiety, Depression Smoking Status: Former smoker Past Alcohol Use History: None Reported Past Drug Use History: None Reported - Past Family History Mother Family Medical History: Osteoarthritis (OA) Additional Family Medical History / Comment(s): glaucoma Brother(s) Additional Family Medical History / Comment(s): MS Father Family Medical History: Liver Disease, Myocardial Infarction ([place]) Additional Family Medical History / Comment(s): age 70 -mi, alcoholic General Exam Limitations: no limitations General appearance: alert, in no apparent distress Head exam: Present: atraumatic Eye exam: Present: normal appearance, PERRL ENT exam: Present: normal oropharynx Neck exam: Present: normal inspection Respiratory exam: Present: wheezes, decreased breath sounds Cardiovascular Exam: Present: regular rate, normal rhythm GI/Abdominal exam: Present: soft. Absent: tenderness Extremities exam: Present: normal inspection. Absent: pedal edema, calf tenderness Back exam: Present: normal inspection Neurological exam: Present: alert Psychiatric exam: Present: normal affect, normal mood Skin exam: Present: normal color Course Vital Signs 02/25/19 02/25/19 02/25/19 13:28 13:56 14:06 Temperature 98.7 F Pulse Rate 98 92 90 Respiratory 26 H Rate Blood Pressure 111/70 O2 Sat by Pulse 95 Oximetry EKG Findings - EKG Comments: EKG Findings:: Normal sinus rhythm 95. FL 140. QRS 146. QT 410. QTC 515. No axis. Left bundle branch block. Nonspecific ST-T. Medical Decision Making - Medical Decision Making Patient reevaluated and updated. Case discussed with Dr. Naqvi, who will admit his patient. Cardiology and pulmonary will be placed on consult. - Lab Data Result diagrams: 02/25/19 13:36 02/25/19 13:36 Lab Results 0302/25/19 02/25/19 Range/Units 13:36 13:36 13:36 WBC 15.2 H (3.8-10.6) k/uL RBC 4.96 (3.80-5.40) m/uL Hgb 13.0 (11.4-16.0) gm/dL Hct 40.5 (34.0-46.0) % MCV 81.6 (80.0-100.0) fL MCH 26.1 (25.0-35.0) pg MCHC 32.0 (31.0-37.0) g/dL RDW 17.8 H (11.5-15.5) % Plt Count 460 H (150-450) k/uL Neutrophils % 91 % Lymphocytes % 6 % Monocytes % 2 % Eosinophils % 0 % Basophils % 0 % Neutrophils # 13.8 H (1.3-7.7) k/uL Lymphocytes # 0.9 L (1.0-4.8) k/uL Monocytes # 0.3 (0-1.0) k/uL Eosinophils # 0.1 (0-0.7) k/uL Basophils # 0.0 (0-0.2) k/uL Anisocytosis Slight Microcytosis Slight PT (9.0-12.0) sec INR (<1.2) APTT (22.0-30.0) sec Sodium 139 (137-145) mmol/L Potassium 3.8 (3.5-5.1) mmol/L Chloride 100 (98-107) mmol/L Carbon Dioxide 30 (22-30) mmol/L Anion Gap 9 mmol/L BUN 19 H (7-17) mg/dL Creatinine 0.73 (0.52-1.04) mg/dL Est GFR (CKD-EPI)AfAm >90 (>60 ml/min/1.73 sqM) Est GFR (CKD-EPI)NonAf 88 (>60 ml/min/1.73 sqM) Glucose 140 H (74-99) mg/dL Calcium 9.0 (8.4-10.2) mg/dL Total Bilirubin 0.6 (0.2-1.3) mg/dL AST 30 (14-36) U/L ALT 49 (9-52) U/L Alkaline Phosphatase 81 (38-126) U/L Troponin I (0.000-0.034) ng/mL NT-Pro-B Natriuret Pep 6690 pg/mL Total Protein 6.1 L (6.3-8.2) g/dL Albumin 3.5 (3.5-5.0) g/dL Influenza Type A RNA (Not Detectd) Influenza Type B (PCR) (Not Detectd) 02/25/19 02/25/19 02/25/19 Range/Units 13:36 13:36 13:45 WBC (3.8-10.6) k/uL RBC (3.80-5.40) m/uL Hgb (11.4-16.0) gm/dL Hct (34.0-46.0) % MCV (80.0-100.0) fL MCH (25.0-35.0) pg MCHC (31.0-37.0) g/dL RDW (11.5-15.5) % Plt Count (150-450) k/uL Neutrophils % % Lymphocytes % % Monocytes % % Eosinophils % % Basophils % % Neutrophils # (1.3-7.7) k/uL Lymphocytes # (1.0-4.8) k/uL Monocytes # (0-1.0) k/uL Eosinophils # (0-0.7) k/uL Basophils # (0-0.2) k/uL Anisocytosis Microcytosis PT 10.5 (9.0-12.0) sec INR 1.0 (<1.2) APTT 21.1 L (22.0-30.0) sec Sodium (137-145) mmol/L Potassium (3.5-5.1) mmol/L Chloride (98-107) mmol/L Carbon Dioxide (22-30) mmol/L Anion Gap mmol/L BUN (7-17) mg/dL Creatinine (0.52-1.04) mg/dL Est GFR (CKD-EPI)AfAm (>60 ml/min/1.73 sqM) Est GFR (CKD-EPI)NonAf (>60 ml/min/1.73 sqM) Glucose (74-99) mg/dL Calcium (8.4-10.2) mg/dL Total Bilirubin (0.2-1.3) mg/dL AST (14-36) U/L ALT (9-52) U/L Alkaline Phosphatase (38-126) U/L Troponin I <0.012 (0.000-0.034) ng/mL NT-Pro-B Natriuret Pep pg/mL Total Protein (6.3-8.2) g/dL Albumin (3.5-5.0) g/dL Influenza Type A RNA Not Detected (Not Detectd) Influenza Type B (PCR) Not Detected (Not Detectd) - Radiology Data Radiology results: image reviewed (Chest x-ray shows some increased interstitial markings consistent with CHF.) Disposition Clinical Impression: Congestive heart failure, BOOP (bronchiolitis obliterans with organizing pneumonia), Acute exacerbation of chronic obstructive airways disease Disposition: ADMITTED IP TO THIS HOSP Is patient prescribed a controlled substance at d/c from ED?: No Referrals: Michelle Naqvi MD [Primary Care Provider] - 1-2 days Decision Time: 15:10
[2019-02-25 14:00] LABS: Anisocytosis Slight; Basophils % (A) 0 %; Eosinophils # (A) 0.1 k/uL (0-0.7); Eosinophils % (A) 0 %; HCT 40.5 % (34.0-46.0); Lymphocytes # (A) 0.9 k/uL (1.0-4.8); Lymphocytes % (A) 6 %; MCH 26.1 pg (25.0-35.0); MCV 81.6 fL (80.0-100.0); Mean Platelet Volume 6.8; Microcytosis Slight; Monocytes # (A) 0.3 k/uL (0-1.0); Monocytes % (A) 2 %; Neutrophils # (A) 13.8 k/uL (1.3-7.7); Neutrophils % (A) 91 %; Platelet Count 460 k/uL (150-450); RBC 4.96 m/uL (3.80-5.40); RDW 17.8 % (11.5-15.5); WBC 15.2 k/uL (3.8-10.6)
--- NOTE | 2019-02-25 14:21 | XR ---
EXAMINATION TYPE: XR chest 2V DATE OF EXAM: 02/25/2019 COMPARISON: 02/07/2019 INDICATION: Difficulty breathing TECHNIQUE: Frontal and lateral views of the chest are obtained. FINDINGS: The heart size is normal. The pulmonary vasculature is somewhat prominent. Calcified lymphadenopathy is within the mediastinum, present previously. There are increased lung mar kings at the lung bases. This is improved at the left base from comparison.. Posterior pleural effus ion should be considered. IMPRESSION: 1. Correlate for volume overload. 2. Previous left lower lobe infiltrate has improved.
[2019-02-25 14:22] LABS: ALT 49 U/L (9-52); AST 30 U/L (14-36); Albumin 3.5 g/dL (3.5-5.0); Alkaline Phosphatase 81 U/L (38-126); Anion Gap 9 mmol/L; Blood Urea Nitrogen 19 mg/dL (7-17); Carbon Dioxide 30 mmol/L (22-30); Chloride 100 mmol/L (98-107); Glucose 140 mg/dL (74-99); Potassium 3.8 mmol/L (3.5-5.1); Sodium 139 mmol/L (137-145); Total Bilirubin 0.6 mg/dL (0.2-1.3); Total Protein 6.1 g/dL (6.3-8.2)
[2019-02-25 14:26] LABS: Prothrombin Time 10.5 sec (9.0-12.0)
[2019-02-25 14:42] LABS: Partial Thromboplastin Time 21.1 sec (22.0-30.0)
[2019-02-25] MEDS ORDERED: IPRATROPIUM-ALBUTEROL 3 ML NEB INHALATION PRN (15:11)
[2019-02-25] MEDS ORDERED: ASPIRIN 325 MG TAB PO STA (15:11)
[2019-02-25] MEDS ORDERED: FUROSEMIDE 10 MG/ML 4 ML VIAL IV STA (15:24)
[2019-02-25] MEDS ORDERED: NITROGLYCERIN OINT 1 INCH/GM PACKET TOPICAL STA (15:25)
[2019-02-25] MEDS: IPRATROPIUM-ALBUTEROL 3 ML NEB INHALATION SCH (19:23)
[2019-02-25] MEDS: NITROGLYCERIN OINT 1 INCH/GM PACKET TOPICAL SCH (21:42)
[2019-02-25] MEDS: FUROSEMIDE 10 MG/ML 4 ML VIAL IV SCH (21:42)
[2019-02-25] MEDS: methylPREDNISolone SOD SUCCI 125 MG/2 ML VIAL IV SCH (21:42)
[2019-02-25] MEDS ORDERED: ONDANSETRON 4 MG TAB PO PRN (22:56)
[2019-02-25] MEDS ORDERED: FAMOTIDINE 20 MG TAB PO PRN (22:56)
[2019-02-25] MEDS ORDERED: LORATADINE 10 MG TAB PO PRN (22:56)
[2019-02-26] MEDS: ATORVASTATIN 20 MG TAB PO SCH ×2 (00:07→20:32)
[2019-02-26] MEDS: NITROGLYCERIN OINT 1 INCH/GM PACKET TOPICAL SCH ×2 (00:07→08:22)
[2019-02-26] MEDS: PANTOPRAZOLE 40 MG TABLET PO SCH ×3 (00:08→20:32)
[2019-02-26] MEDS: MONTELUKAST 10 MG TAB PO SCH ×2 (00:08→20:32)
[2019-02-26] MEDS: SERTRALINE 100 MG TAB PO SCH ×2 (00:08→17:45)
[2019-02-26] MEDS: SPIRONOLACTONE 25 MG TAB PO SCH ×2 (00:08→20:32)
[2019-02-26] MEDS: ALPRAZolam 0.5 MG TAB PO PRN ×2 (00:08→12:09)
[2019-02-26] MEDS: methylPREDNISolone SOD SUCCI 125 MG/2 ML VIAL IV SCH ×3 (00:09→12:07)
[2019-02-26] MEDS: FUROSEMIDE 10 MG/ML 4 ML VIAL IV SCH ×4 (00:09→23:47)
[2019-02-26 00:23] VITALS: BMI 30.1
[2019-02-26] MEDS: LEVOTHYROXINE 100 MCG TAB PO SCH ×2 (06:19→08:19)
[2019-02-26] MEDS: IPRATROPIUM-ALBUTEROL 3 ML NEB INHALATION SCH ×3 (07:48→19:59)
[2019-02-26] MEDS: POTASSIUM CHLORIDE ER 10 MEQ TAB.ER.PRT PO SCH (08:22)
[2019-02-26] MEDS: ARIPiprazole 5 MG TAB PO SCH (08:22)
[2019-02-26] MEDS: METOPROLOL SUCCINATE (ER) 25 MG TAB.ER.24H PO SCH (08:22)
--- NOTE | 2019-02-26 08:59 | P.CRDCN ---
History of Present Illness Consult date: 02/26/19 Requesting physician: Michelle Naqvi Consult reason: shortness of breath Chief complaint: Shortness of breath History of present illness: This is a pleasant 63-year-old female who follows with Dr. Jasso in the office. She has a known history of hyperlipidemia, nonischemic cardio myopathy, hyperlipidemia, hypothyroidism, history of breast cancer with prior mastectomy, aortic valve insufficiency, nonrheumatic, Hodgkin's lymphoma for which the patient has undergone chemotherapy and radiation, obstructive sleep apnea, BOOP (bronchiolitis obliterans organizing pneumonia), and asthma, she has had several recent admissions to the hospital. She consider hospital on this occasion with symptoms of progressively worsening shortness of breath. According to the patient, she's been dealing with a bronchitis as an outpatient, was recently put on antibiotics by Dr. Wolf, on Tuesday she went to see Dr. Naqvi and was started on a different antibiotic. Dates that she became so short of breath, mostly with exertion, but she was unable to even use her breathing treatment, EMS was called and the patient was brought to the hospital for further evaluation and treatment. Her chest x-ray on admission here suggested volume overload, the previous left lower lobe infiltrate has improved. Her EKG showed a normal sinus rhythm with a left bundle-branch block pattern. White blood cell count 15.2, hemoglobin 13, platelet count 460. Sodium 139, potassium 3.8, BUN 19 and creatinine 0.7. Troponin 0.012, BNP level 6690. Influenza A and B-. Blood pressure 110/60 with a heart rate in the 90s, 96% on 2 L of oxygen. The patient was initiated on IV Lasix in the emergency room, she states that she has put out quite a bloody urine through the night last night and this morning is feeling somewhat better however not back to her normal just yet. Past Medical History Past Medical History: Asthma, Cancer, Heart Failure, COPD, GERD/Reflux, Osteoarthritis (OA), Sleep Apnea/CPAP/BIPAP, Thyroid Disorder Additional Past Medical History / Comment(s): BOOP, cardiomyopathy, cardiac murmur, anemia, past multiple thoracic compression fractures with T8 being worse, back pain, osteoporosis, R rib fracture, Hodgkins Lymphoma status post chemo and radiation chest area in 1978; L Breast CA-status post mastectomy(sx only), R renal carcinoma with partial nephrectomy, cervical cancer with surgery, ASHKAN with CPAP use, hypothyroid, hiatal hernia, sinus problems. History of Any Multi-Drug Resistant Organisms: None Reported Past Surgical History: Adenoidectomy, Breast Surgery, Section, Hysterectomy, Orthopedic Surgery, Tonsillectomy Additional Past Surgical History / Comment(s): Spleenectomy, laparotomy, colonoscopy, EGD, bilateral 5th toe surgery for spurs, L breast mastectomy with breast reconstruction, R breast implant since removed, bronchoscopy/lung bx, rt kidney partial nephrectomy, bilateral cataract removals with lens implants, ALDEN. Past Anesthesia/Blood Transfusion Reactions: No Reported Reaction Additional Past Anesthesia/Blood Transfusion Reaction / Comment(s): clausterphobia (mri's) Past Psychological History: Anxiety, Depression Additional Psychological History / Comment(s): Pt resides alone. She recently established with [facility]. She has CPAP and nebulizer. She is waiting to use up her groceries, then will look into MOW. She drives if she is feeling well, otherwise family [facility] [employer]. Smoking Status: Former smoker Past Alcohol Use History: None Reported Additional Past Alcohol Use History / Comment(s): Pt states she started smoking in 1969 and quit in 1977 Past Drug Use History: None Reported - Past Family History Mother Family Medical History: Osteoarthritis (OA) Additional Family Medical History / Comment(s): glaucoma Brother(s) Additional Family Medical History / Comment(s): MS Father Family Medical History: Liver Disease, Myocardial Infarction ([place]) Additional Family Medical History / Comment(s): age 70 -mi, alcoholic Medications and Allergies Home Medications Medication Instructions Recorded Confirmed Type Budesonide-Formot 160-4.5 Mcg 2 puff INHALATION RT-BID 10/05/16 02/25/19 History [Symbicort 160-4.5 Mcg Inhaler] Levothyroxine Sodium [Synthroid] 100 mcg PO DAILY 10/05/16 02/25/19 History Metoprolol Succinate (ER) [Toprol 25 mg PO DAILY 10/05/16 02/25/19 History XL] Montelukast [Singulair] 10 mg PO HS 10/05/16 02/25/19 History Sertraline [Zoloft] 200 mg PO AC-SUPPER 10/05/16 02/25/19 History Albuterol Sulfate [Proair Hfa] 2 puff INHALATION RT-Q6H PRN 04/06/17 02/25/19 History Acyclovir 400 mg PO DAILY PRN 05/13/17 02/25/19 History Acyclovir [Zovirax] 1 applic TOPICAL 5XD PRN 05/13/17 02/25/19 History Cetirizine HCl [Zyrtec] 10 mg PO HS PRN 05/13/17 02/25/19 History Ranitidine HCl [Zantac] 150 mg PO HS PRN 05/13/17 02/25/19 History ALPRAZolam [Xanax] 0.5 mg PO Q8H PRN 06/19/18 02/25/19 History Ergocalciferol [Vitamin D2 50,000 unit PO SA 06/19/18 02/25/19 History (DRISDOL)] Omeprazole 40 mg PO BID 06/19/18 02/25/19 History Ipratropium-Albuterol Nebulize 3 ml INHALATION RT-QID ampul.neb 07/09/18 02/25/19 Rx [Duoneb 0.5 mg-3 mg/3 ml Soln] Potassium Chloride [K-Tab ER] 10 meq PO DAILY 09/13/18 02/25/19 History Spironolactone [Aldactone] 25 mg PO HS 09/13/18 02/25/19 History Furosemide [Lasix] 40 mg PO BID@0900,1600 #60 tab 09/19/18 02/25/19 Rx ARIPiprazole [Abilify] 5 mg PO DAILY 01/23/19 02/25/19 History Ondansetron [Zofran] 1 tab PO Q6HR PRN 01/24/19 02/25/19 History Simvastatin [Zocor] 40 mg PO HS #30 tab 01/29/19 02/25/19 Rx HYDROcodone/APAP 7.5-325MG [[place] 1 tab PO Q6H PRN 02/25/19 02/25/19 History 7.5-325] Allergies Allergy/AdvReac Type Severity Reaction Status Date / Time No Known Allergies Allergy Verified 02/25/19 13:52 Physical Exam Vitals: Vital Signs Temp Pulse Pulse Resp BP BP Pulse Ox 02/26/19 08:01 96 02/26/19 07:50 88 02/26/19 07:48 97.7 F 93 18 111/63 96 02/26/19 03:25 97.5 F L 92 20 111/60 98 02/26/19 00:00 97.9 F 88 20 104/53 95 02/25/19 21:45 96.9 F L 93 20 117/51 96 02/25/19 21:03 98.8 F 93 20 110/62 96 02/25/19 19:45 98.1 F 94 18 112/67 95 02/25/19 19:38 94 02/25/19 19:24 91 02/25/19 18:00 94 18 122/73 94 L 02/25/19 15:46 89 02/25/19 15:39 88 24 112/76 96 02/25/19 15:38 88 02/25/19 14:06 90 02/25/19 13:56 92 02/25/19 13:28 98.7 F 98 26 H 111/70 95 Intake and Output 02/25/19 02/26/19 02/26/19 22:59 06:59 14:59 Intake Total 240 Output Total 700 300 200 Balance -700 -300 40 Intake: Oral 240 Output: Urine 700 300 200 Other: Voiding Method Toilet Bedside Commode Weight 72.3 kg PHYSICAL EXAMINATION: GENERAL: 63-year-old female in no acute distress at the time of my examination HEENT: Head is atraumatic, normocephalic. Pupils equal, round. Sclera anicteric. Conjunctiva are clear. Mucous membranes of the mouth are moist. Neck is supple. There is elevated jugular venous pressure. No carotid bruit is heard. HEART EXAMINATION: Heart S1 S2 1 systolic murmur is heard CHEST EXAMINATION: Lungs reveal scattered wheezing throughout, decreased air exchange bilaterally and diminished air entry to the bases. Evidence of kyphosis ABDOMEN: Soft, nontender. Bowel sounds are heard. No organomegaly noted. EXTREMITIES: 2+ peripheral pulses with no evidence of peripheral edema and no calf tenderness noted. NEUROLOGIC patient is awake, alert and oriented 3 . . Results 02/25/19 13:36 02/25/19 13:36 Cardiac Enzymes 02/25/19 02/25/19 Range/Units 13:36 13:36 AST 30 (14-36) U/L Troponin I <0.012 (0.000-0.034) ng/mL Coagulation 02/25/19 Range/Units 13:36 PT 10.5 (9.0-12.0) sec APTT 21.1 L (22.0-30.0) sec CBC 02/25/19 Range/Units 13:36 WBC 15.2 H (3.8-10.6) k/uL RBC 4.96 (3.80-5.40) m/uL Hgb 13.0 (11.4-16.0) gm/dL Hct 40.5 (34.0-46.0) % Plt Count 460 H (150-450) k/uL Comprehensive Metabolic Panel 02/25/19 Range/Units 13:36 Sodium 139 (137-145) mmol/L Potassium 3.8 (3.5-5.1) mmol/L Chloride 100 (98-107) mmol/L Carbon Dioxide 30 (22-30) mmol/L BUN 19 H (7-17) mg/dL Creatinine 0.73 (0.52-1.04) mg/dL Glucose 140 H (74-99) mg/dL Calcium 9.0 (8.4-10.2) mg/dL AST 30 (14-36) U/L ALT 49 (9-52) U/L Alkaline Phosphatase 81 (38-126) U/L Total Protein 6.1 L (6.3-8.2) g/dL Albumin 3.5 (3.5-5.0) g/dL Current Medications Generic Name Dose Route Start Last Admin Trade Name Freq PRN Reason Stop Dose Admin Hydrocodone Bitart/Acetaminophen 1 each 02/25/19 22:56 [place] 7.5-325 PO Q6H PRN Pain Albuterol/Ipratropium 3 ml 02/25/19 20:00 02/26/19 07:48 Duoneb 0.5 Mg-3 Mg/3 Ml Soln INHALATION 3 ml RT-QID ERICA Administration Albuterol/Ipratropium 3 ml 02/25/19 15:11 02/25/19 15:37 Duoneb 0.5 Mg-3 Mg/3 Ml Soln INHALATION 3 ml RT-Q4H PRN Administration Shortness Of Breath Or Wheezing Alprazolam 0.5 mg 02/25/19 22:56 04/01/19 00:08 Xanax PO 0.5 mg Q8H PRN Administration Anxiety Aripiprazole 5 mg 02/26/19 09:00 02/26/19 08:22 Abilify PO 5 mg DAILY [facility] Administration Aspirin 325 mg 02/26/19 12:00 Aspirin PO DAILY [facility] Atorvastatin Calcium 20 mg 02/25/19 23:00 02/26/19 00:07 Lipitor PO 20 mg HS [facility] Administration Ergocalciferol 50,000 unit 03/03/19 12:00 Vitamin D2 PO SA [facility] Famotidine 20 mg 02/25/19 22:56 02/26/19 00:08 Pepcid PO 20 mg HS PRN Administration Heartburn Furosemide 40 mg 02/25/19 16:00 02/26/19 08:22 Lasix IV 40 mg Q8H [facility] Administration Ceftriaxone Sodium 1 gm/ 50 mls @ 100 mls/hr 02/26/19 09:00 Sodium Chloride IVPB Q24HR [facility] Levothyroxine Sodium 100 mcg 02/26/19 06:30 02/26/19 08:19 Synthroid PO Not Given DAILY [facility] Loratadine 10 mg 02/25/19 22:56 Claritin PO HS PRN Allergy Symptoms Methylprednisolone Sodium Succinate 60 mg 02/25/19 18:00 02/26/19 06:18 Solu-Medrol IV 60 mg Q6HR [facility] Administration Metoprolol Succinate 25 mg 02/26/19 09:00 02/26/19 08:22 Toprol Xl PO 25 mg DAILY [facility] Administration Montelukast Sodium 10 mg 02/25/19 23:00 02/26/19 00:08 Singulair PO 10 mg HS [facility] Administration Nitroglycerin 1 inch 02/25/19 18:00 02/26/19 08:22 Nitro-Bid Oint TOPICAL 1 inch QID [facility] Administration Ondansetron HCl 4 mg 02/25/19 22:56 Zofran PO Q6HR PRN Nausea Pantoprazole Sodium 40 mg 02/25/19 23:00 02/26/19 06:19 Protonix PO 40 mg BID [facility] Administration Potassium Chloride 10 meq 02/26/19 09:00 02/26/19 08:22 K-Dur 10 PO 10 meq DAILY [facility] Administration Sertraline HCl 200 mg 02/25/19 23:00 02/26/19 00:08 Zoloft PO 200 mg AC-SUPPER ERICA Administration Sodium Chloride 10 ml 02/25/19 21:00 02/26/19 08:22 Saline Flush IV Not Given BID ERICA Spironolactone 25 mg 02/25/19 23:00 02/26/19 00:08 Aldactone PO 25 mg HS ERICA Administration Intake and Output 02/25/19 02/26/19 02/26/19 22:59 06:59 14:59 Intake Total 240 Output Total 700 300 200 Balance -700 -300 40 Intake: Oral 240 Output: Urine 700 300 200 Other: Voiding Method Toilet Bedside Commode Weight 72.3 kg 02/25/19 13:36 02/25/19 13:36 EKG Interpretations (text) EKG shows a normal sinus rhythm with a left bundle-branch block pattern. Assessment and Plan Plan: Assessment and plan #1 diastolic congestive heart failure acute on chronic #2 possible acute tracheobronchitis, on antibiotic #3 history of Hodgkin's lymphoma #4 nonischemic cardiomyopathy #5 hyperlipidemia #6 history of breast cancer with prior mastectomy #7 hypothyroidism #8 aortic insufficiency, most recent echo was performed last year which revealed an ejection fraction of 50-55%. #9 sleep apnea #10 GERD #11 history of right renal carcinoma with partial nephrectomy #12 BOOP #13 osteoporosis Plan We will repeat an echocardiogram with Doppler study. Continue current dose of IV Lasix. Decrease aspirin to 81 mg daily. Continue IV antibiotics. Discontinue Nitropaste. Further recommendations to follow DNP note has been reviewed, I agree with a documented findings and plan of care. Patient was seen and examined.
--- NOTE | 2019-02-26 09:54 | P.PN ---
Subjective Please see full dictation by nurse practitioner Agree with continuing IV Lasix until intravenously antibiotics for treatment of pneumonitis are completed and thereafter she can be switched back to by mouth Lasix 2-D echo and Doppler study Objective - Vital Signs Vital signs: Vital Signs Temp 97.7 F 02/26/19 07:48 Pulse 96 02/26/19 08:01 Resp 18 02/26/19 07:48 BP 111/63 02/26/19 07:48 Pulse Ox 96 02/26/19 07:48 Intake & Output 02/25/19 02/26/19 02/26/19 18:59 06:59 18:59 Intake Total 240 Output Total 400 600 200 Balance -400 -600 40 Weight 73.482 kg 72.3 kg Intake: Oral 240 Output: Urine 400 600 200 Other: Voiding Method Toilet Bedside Commode - Labs CBC & Chem 7: 02/25/19 13:36 02/25/19 13:36 Labs: Abnormal Lab Results - Last 24 Hours (Table) 02/25/19 02/25/19 02/25/19 Range/Units 13:36 13:36 13:36 WBC 15.2 H (3.8-10.6) k/uL RDW 17.8 H (11.5-15.5) % Plt Count 460 H (150-450) k/uL Neutrophils # 13.8 H (1.3-7.7) k/uL Lymphocytes # 0.9 L (1.0-4.8) k/uL APTT 21.1 L (22.0-30.0) sec BUN 19 H (7-17) mg/dL Glucose 140 H (74-99) mg/dL Total Protein 6.1 L (6.3-8.2) g/dL
[2019-02-26] MEDS ORDERED: ACETAMINOPHEN TAB 325 MG TAB PO PRN (10:58)
--- NOTE | 2019-02-26 11:00 | P.HPIM ---
History of Present Illness H&P Date: 02/26/19 This is a 63-year-old female patient who presented to the ER with complaints of shortness of breath patient reports that she had increasingly short of breath last week that progressively came worse over the weekend. Patient does have a known past medical history of BOOP, asthma, heart failure, COPD, GERD, osteoarthritis, sleep apnea, cardiomyopathy, multiple thoracic compression fractures, left breast cancer status post cystectomy right renal carcinoma with partial nephrectomy cervical cancer. Chest x-ray completed showing correlation for volume overload. Previous left lower infiltrate has improved. EKG performed showing normal sinus rhythm, left bundle branch block. Influenza negative. Cardiology and pulmonary service is consulted. Patient started on IV Lasix 40 mg every 8 hours DuoNeb breathing treatments and Solu-Medrol. At this time patient does state some improvement with her shortness of breath. Patient denies chest pain. Patient denies nausea vomiting or diarrhea. Patient denies any urinary burning or frequency . Review of Systems please refrer to HPI otherwise unremarkable Past Medical History Past Medical History: Asthma, Cancer, Heart Failure, COPD, GERD/Reflux, Osteoarthritis (OA), Sleep Apnea/CPAP/BIPAP, Thyroid Disorder Additional Past Medical History / Comment(s): BOOP, cardiomyopathy, cardiac murmur, anemia, past multiple thoracic compression fractures with T8 being worse, back pain, osteoporosis, R rib fracture, Hodgkins Lymphoma status post chemo and radiation chest area in 1978; L Breast CA-status post mastectomy(sx only), R renal carcinoma with partial nephrectomy, cervical cancer with surgery, ASHKAN with CPAP use, hypothyroid, hiatal hernia, sinus problems. History of Any Multi-Drug Resistant Organisms: None Reported Past Surgical History: Adenoidectomy, Breast Surgery, Section, Hysterec lynda, Orthopedic Surgery, Tonsillectomy Additional Past Surgical History / Comment(s): Spleenectomy, laparotomy, colonoscopy, EGD, bilateral 5th toe surgery for spurs, L breast mastectomy with breast reconstruction, R breast implant since removed, bronchoscopy/lung bx, rt kidney partial nephrectomy, bilateral cataract removals with lens implants, ALDEN. Past Anesthesia/Blood Transfusion Reactions: No Reported Reaction Additional Past Anesthesia/Blood Transfusion Reaction / Comment(s): clausterphobia (mri's) Past Psychological History: Anxiety, Depression Additional Psychological History / Comment(s): Pt resides alone. She recently established with [facility]. She has CPAP and nebulizer. She is waiting to use up her groceries, then will look into [facility]. She drives if she is feeling well, otherwise family drives her to [employer]. Smoking Status: Former smoker Past Alcohol Use History: None Reported Additional Past Alcohol Use History / Comment(s): Pt states she started smoking in 1969 and quit in 1977 Past Drug Use History: None Reported - Past Family History Mother Family Medical History: Osteoarthritis (OA) Additional Family Medical History / Comment(s): glaucoma Brother(s) Additional Family Medical History / Comment(s): MS Father Family Medical History: Liver Disease, Myocardial Infarction ([place]) Additional Family Medical History / Comment(s): age 70 -mi, alcoholic Medications and Allergies Home Medications Medication Instructions Recorded Confirmed Type Budesonide-Formot 160-4.5 Mcg 2 puff INHALATION RT-BID 10/05/16 02/25/19 History [Symbicort 160-4.5 Mcg Inhaler] Levothyroxine Sodium [Synthroid] 100 mcg PO DAILY 10/05/16 02/25/19 History Metoprolol Succinate (ER) [Toprol 25 mg PO DAILY 10/05/16 02/25/19 History XL] Montelukast [Singulair] 10 mg PO HS 10/05/16 02/25/19 History Sertraline [Zoloft] 200 mg PO AC-SUPPER 10/05/16 02/25/19 History Albuterol Sulfate [Proair Hfa] 2 puff INHALATION RT-Q6H PRN 04/06/17 02/25/19 History Acyclovir 400 mg PO DAILY PRN 05/13/17 02/25/19 History Acyclovir [Zovirax] 1 applic TOPICAL 5XD PRN 05/13/17 02/25/19 History Cetirizine HCl [Zyrtec] 10 mg PO HS PRN 05/13/17 02/25/19 History Ranitidine HCl [Zantac] 150 mg PO HS PRN 05/13/17 02/25/19 History ALPRAZolam [Xanax] 0.5 mg PO Q8H PRN 06/19/18 02/25/19 History Ergocalciferol [Vitamin D2 50,000 unit PO SA 06/19/18 02/25/19 History (DRISDOL)] Omeprazole 40 mg PO BID 06/19/18 02/25/19 History Ipratropium-Albuterol Nebulize 3 ml INHALATION RT-QID ampul.neb 07/09/18 02/25/19 Rx [Duoneb 0.5 mg-3 mg/3 ml Soln] Potassium Chloride [K-Tab ER] 10 meq PO DAILY 09/13/18 02/25/19 History Spironolactone [Aldactone] 25 mg PO HS 09/13/18 02/25/19 History Furosemide [Lasix] 40 mg PO BID@0900,1600 #60 tab 09/19/18 02/25/19 Rx ARIPiprazole [Abilify] 5 mg PO DAILY 01/23/19 02/25/19 History Ondansetron [Zofran] 1 tab PO Q6HR PRN 01/24/19 02/25/19 History Simvastatin [Zocor] 40 mg PO HS #30 tab 01/29/19 02/25/19 Rx HYDROcodone/APAP 7.5-325MG [[place] 1 tab PO Q6H PRN 02/25/19 02/25/19 History 7.5-325] Allergies Allergy/AdvReac Type Severity Reaction Status Date / Time No Known Allergies Allergy Verified 02/25/19 13:52 Physical Exam Vitals: Vital Signs Temp Pulse Pulse Resp BP BP Pulse Ox 02/26/19 08:01 96 02/26/19 07:50 88 02/26/19 07:48 97.7 F 93 18 111/63 96 02/26/19 03:25 97.5 F L 92 20 111/60 98 02/26/19 00:00 97.9 F 88 20 104/53 95 02/25/19 21:45 96.9 F L 93 20 117/51 96 02/25/19 21:03 98.8 F 93 20 110/62 96 02/25/19 19:45 98.1 F 94 18 112/67 95 02/25/19 19:38 94 02/25/19 19:24 91 02/25/19 18:00 94 18 122/73 94 L 02/25/19 15:46 89 02/25/19 15:39 88 24 112/76 96 02/25/19 15:38 88 02/25/19 14:06 90 02/25/19 13:56 92 02/25/19 13:28 98.7 F 98 26 H 111/70 95 Intake and Output 02/25/19 02/26/19 02/26/19 22:59 06:59 14:59 Intake Total 240 Output Total 700 300 500 Balance -700 300 -260 Intake: Oral 240 Output: Urine 700 300 500 Other: Voiding Method Toilet Bedside Commode Weight 72.3 kg Head normocephalic Neck supple Lungs clear to auscultation bilaterally no wheezing or crackles Heart regular rate and rhythm S1-S2, no rub or gallop Abdomen is soft nontender nondistended positive bowel sounds no hepatosplen omegaly Extremities no edema Neuro alert and orientated to 3 Results CBC & Chem 7: 02/25/19 13:36 02/25/19 13:36 Labs: Abnormal Lab Results - Last 24 Hours (Table) 02/25/19 02/25/19 02/25/19 Range/Units 13:36 13:36 13:36 WBC 15.2 H (3.8-10.6) k/uL RDW 17.8 H (11.5-15.5) % Plt Count 460 H (150-450) k/uL Neutrophils # 13.8 H (1.3-7.7) k/uL Lymphocytes # 0.9 L (1.0-4.8) k/uL APTT 21.1 L (22.0-30.0) sec BUN 19 H (7-17) mg/dL Glucose 140 H (74-99) mg/dL Total Protein 6.1 L (6.3-8.2) g/dL Thrombosis Risk Factor Assmnt - Choose All That Apply Any of the Below Risk Factors Present?: Yes Each Factor Represents 1 point: Obesity (BMI >25), Serious lung disease incl. pneumonia (< 1month) Other Risk Factors: Yes Each Risk Factor Represents 2 Points: Age 61-74 years Thrombosis Risk Factor Assessment Total Risk Factor Score: 4 Thrombosis Risk Factor Assessment Level: Moderate Risk Assessment and Plan Assessment: 1. Increased shortness of breath due to exacerbation of chronic obstructive pulmonary disease and acute exacerbation of diastolic congestive heart failure. Patient started on IV Lasix 40 mg every 8 hours. 2-D echo has been ordered. Patient started on Solu-Medrol. Pulmonary and cardiology services are foll owing. 2. Chronic diastolic congestive heart failure. maintain on IV Lasix at this time. Cardiology service following 3. Acute tracheobronchitis. Patient currently on Rocephin. Pulmonary services are following 4. History of bronchiolitis obliterans organizing pneumonia. Patient follows with pulmonary services 5. History of Hodgkin's lymphoma 6. History of nonischemic cardiomyopathy 7. History of hyperlipidemia 8. Hypothyroidism 9. History of breast cancer with prior cystectomy 10. Aortic insufficiency 11. Sleep apnea 12. History of GERD 13. History of right renal carcinoma with partial nephrectomy 14. History of T8 and T11 vertebral fracture. Patient follows with Dr. Johnson 15. History of osteoporosis DVT prophylaxis Lovenox. GI prophylaxis Protonix Time with Patient: Greater than 30 (Greater than 60% of the total time spent in counseling and coordination of care. I performed an examination of the patient and discussed their management with the Nurse Practitioner. I have reviewed the Nurse Practitioner's notes and agree with the documented findings and plan of care)
[2019-02-26 11:51] LABS: Glucose,Whole Blood 128 mg/dL (75-99)
[2019-02-26] MEDS ORDERED: ASPIRIN 325 MG TAB PO SCH (12:00)
[2019-02-26] MEDS: ENOXAPARIN 40 MG/0.4 ML SYRINGE SQ SCH (12:07)
--- NOTE | 2019-02-26 12:08 | ECHOF ---
Referral Reason:chf MEASUREMENTS -------- HEIGHT: 154.9 cm WEIGHT: 72.1 kg BP: 111/63 IVSd: 1.0 cm (0.6 - 1.1) LVIDd: 4.7 cm (3.9 - 5.3) LVPWd: 1.4 cm (0.6 - 1.1) IVSs: 1.3 cm LVIDs: 4.2 cm LVPWs: 1.1 cm Ao Diam: 3.0 cm (2.0 - 3.7) AV Cusp: 1.2 cm (1.5 - 2.6) LA Diam: 3.6 cm (2.7 - 3.8) MV EXCURSION: 7.289 mm (> 18.000) MV EF SLOPE: 18 mm/s (70 - 150) EPSS: 3.0 cm MV E Benjamin: 1.57 m/s MV DecT: 259 ms MV A Benajmin: 0.65 m/s MV E/A Ratio: 2.41 AV maxP.49 mmHg AV meanP.26 mmHg AR PHT: 225 ms RAP: 5.00 mmHg RVSP: 60.17 mmHg FINDINGS -------- Sinus rhythm with extra systolic beats. This was a technically difficult study with suboptimal views. The left ventricular size is normal. There is mild concentric left ventricular hypertrophy. There is severe global hypokinesis of LV . Overall left ventricular systolic function is severely impair ed with, an EF between 20 - 25 %. The right ventricle is normal in size. The left atrial size is normal. The right atrial size is normal. Lumason used Aortic valve is trileaflet and is mildly thickened. There is mild aortic valve sclerosis. There i s mild aortic regurgitation. The mitral valve leaflets are moderately thickened. Moderate mitral annular calcification present. Mild mitral regurgitation is present. The peak and mean MV gradients are 11.03mmHg 4.60mmHg as m easured by doppler. Severe tricuspid regurgitation present. There is moderate to severe pulmonary hypertension. The r ight ventricular systolic pressure, as measured by Doppler, is 60.17mmHg. Trace/mild (physiologic) pulmonic regurgitation. The aortic root size is normal. IVC Not well visulized. There is no pericardial effusion. CONCLUSIONS -------- 1. Sinus rhythm with extra systolic beats. 2. This was a technically difficult study with suboptimal views. 3. The left ventricular size is normal. 4. There is mild concentric left ventricular hypertrophy. 5. There is severe global hypokinesis of LV . 6. Overall left ventricular systolic function is severely impaired with, an EF between 20 - 25 %. 7. The right ventricle is normal in size. 8. The left atrial size is normal. 9. The right atrial size is normal. 10. Lumason used 11. Aortic valve is trileaflet and is mildly thickened. 12. There is mild aortic valve sclerosis. 13. There is mild aortic regurgitation. 14. The mitral valve leaflets are moderately thickened. 15. Moderate mitral annular calcification present. 16. Mild mitral regurgitation is present. 17. The peak and mean MV gradients are 11.03mmHg 4.60mmHg as measured by doppler. 18. Severe tricuspid regurgitation present. 19. There is moderate to severe pulmonary hypertension. 20. The right ventricular systolic pressure, as measured by Doppler, is 60.17mmHg. 21. Trace/mild (physiologic) pulmonic regurgitation. 22. The aortic root size is normal. 23. IVC Not well visulized. 24. There is no pericardial effusion. IRRIGATION DISTRICT MANAGER: Ricarda Mullen RDCS
[2019-02-26] MEDS ORDERED: IPRATROPIUM-ALBUTEROL 3 ML NEB INHALATION PRN (14:19)
[2019-02-26] MEDS: HYDROcodone/APAP 7.5-325MG 1 EACH TAB PO PRN (15:03)
[2019-02-26] MEDS: methylPREDNISolone 4 MG TAB TAPER PO SCH (15:04)
--- NOTE | 2019-02-26 20:03 | CONS ---
CONSULTATION PULMONARY/CRITICAL CARE CONSULTATION: This is a 63-year-old female well known to me. She presented to the emergency room on February 25 with complaints of increasing shortness of breath. The patient has had multiple admissions to the hospital recently with respiratory issues, including shortness of breath. She does cough and has some phlegm. More importantly, she has weight gain and lower extremity edema. Her chest x-ray is consistent with fluid overload. I saw in the office recently and she had a mild case of bronchitis. Again, I suspect her primary issue is fluid overload more than a lung issue at this time. Anyway, she tells us that she has been eating lots of crackers and peanuts. She has also been eating a lot of fast foods, including [employer]. She has been eating a lot of things rich in salt. We have had multiple discussions in the past about the importance of a low-sodium diet. The patient is feeling a bit better today than she did when she came into the emergency room. She is sitting at the bedside. HOME MEDICATIONS: Reviewed. They include: 1. Symbicort. 2. Synthroid. 3. Metoprolol. 4. Singulair. 5. Zoloft. 6. Albuterol. 7. Acyclovir. 8. Zyrtec. 9. Zantac. 10.Xanax. 11.Vitamin D2. 12.Omeprazole. 13.Potassium chloride. 14.Aldactone. 15.Abilify. 16.Zofran. 17.Tetonia. 18.Updrafts. 19.Lasix. 20.Zocor. ALLERGIES: No allergies are noted. PAST MEDICAL HISTORY: Positive for: 1. Bronchiolitis obliterans organizing pneumonia. 2. CHF. 3. Gastroesophageal reflux disease. 4. DJD. 5. Sleep apnea syndrome. 6. Hypothyroidism. 7. Cardiomyopathy. 8. Multiple thoracic compression fractures. 9. Osteoporosis. 10.Hodgkin's lymphoma. 11.Breast cancer, status post mastectomy. 12.Nephrectomy for right kidney cancer. 13.She has also had cervical cancer with surgery. 14.Other medical problems, including chronic sinus disease and hiatal hernia. SURGICAL HISTORY: Includes: 1. Adenoidectomy. 2. Breast surgery. 3. . 4. Hysterectomy. 5. Nephrectomy. 6. Tonsillectomy. 7. Splenectomy. 8. Laparotomy. 9. Colonoscopy. 10.EGD. 11.Left breast mastectomy. 12.Bilateral cataract surgery. 13.Transesophageal echocardiogram. SOCIAL HISTORY: Positive for previous tobacco use. She denies any alcohol or illicit drug use. FAMILY HISTORY: Positive for glaucoma, DJD, multiple sclerosis, myocardial infarction, liver disease and chronic alcohol abuse. REVIEW OF SYSTEMS: CONSTITUTIONAL: Negative. NEUROLOGIC: Negative. HEENT: Negative. CARDIOVASCULAR: Negative. PULMONARY: Shortness of breath, weight gain, orthopnea, peripheral edema, minimal cough and phlegm production. GI: Negative. : Negative. RHEUMATOLOGIC: Negative. IMMUNOLOGIC: Negative. ENDOCRINOLOGIC: Negative. DERMATOLOGIC: Negative. PHYSICAL EXAMINATION: CURRENT VITAL SIGNS: Temperature 97.6, heart rate 85, respiratory rate 18, blood pressure 106/60, mean 75. Two-liter saturation 96%. Appears in no acute distress. HEENT examination is grossly unremarkable. Mucous membranes are moist. No oral lesions. Nasal oxygen in place at 2 L. NECK: Supple. Full range of motion. No adenopathy, thyromegaly or neck vein distention. Cardiovascular examination reveals regular rhythm and rate. S1, S2 normal. A soft systolic murmur is heard. LUNGS: Some bibasilar crackles. Breath sounds equal. No rhonchi. No wheezes. Breath sounds diminished throughout. ABDOMEN: Soft. Bowel sounds are heard. Extremities are intact. Mild edema noted. It is about 1+ and there is slight pitting. Skin without rash. Neurologic examination is brief but nonfocal. LABS: White count 15.2, hemoglobin 13, hematocrit 40.5, platelet count 460,000. PT, INR and PTT all normal. Sodium, potassium, chloride, CO2 all normal. Anion gap 9. BUN and creatinine were 19 and 0.73. Troponin was less than 0.012. N-terminal proBNP is elevated at 6690. Influenza studies are negative. A chest x-ray from yesterday shows evidence of volume overload, and the previous left lower lobe infiltrate has improved or diminished completely. Medications are reviewed. ASSESSMENT: 1. Shortness of breath, likely mostly related to underlying congestive heart failure. The patient has significant dietary indiscretion and eats lots of salt at home. 2. History of bronchiolitis obliterans organizing pneumonia, stable, as patient has been weaned off prednisone. 3. Mild acute bronchitis. 4. Mild chronic obstructive pulmonary disease, inactive at this time. 5. History of hypothyroidism. 6. History of hypertension. 7. Cardiomyopathy. 8. History of breast cancer. 9. History of Hodgkin's lymphoma. 10.Previous nephrectomy for renal cell cancer. 11.History of gastroesophageal reflux disease. 12.History of degenerative joint disease. 13.History of multiple thoracic compression fractures. 14.Status post mastectomy. 15.Hiatal hernia. 16.Multiple other medical problems and comorbidities. PLAN: Medications, labs, x-rays are all reviewed. The patient's medications will be particularly reviewed, as I believe her primary problem is that of fluid overload. The patient's lungs otherwise sound reasonably well. She was just in the office. She did have a very mild case of bronchitis. We will continue to follow. Prognosis is guarded. I told her the heart failure book would be very helpful, as it will guide her in terms of what she should and should not eat. MMODL / IJN: [id number] /
[2019-02-27 07:03] LABS: Anisocytosis Slight; Basophils % (A) 0 %; Eosinophils % (A) 0 %; HCT 40.6 % (34.0-46.0); HGB 12.6 gm/dL (11.4-16.0); Lymphocytes # (A) 1.6 k/uL (1.0-4.8); Lymphocytes % (A) 10 %; MCH 25.8 pg (25.0-35.0); MCHC 31.1 g/dL (31.0-37.0); MCV 82.9 fL (80.0-100.0); Mean Platelet Volume 6.7; Monocytes # (A) 0.8 k/uL (0-1.0); Monocytes % (A) 5 %; Neutrophils # (A) 13.7 k/uL (1.3-7.7); Neutrophils % (A) 84 %; Platelet Count 450 k/uL (150-450); RDW 17.4 % (11.5-15.5); WBC 16.3 k/uL (3.8-10.6)
[2019-02-27 07:10] LABS: Albumin 3.3 g/dL (3.5-5.0); Calcium 9.5 mg/dL (8.4-10.2); Potassium 3.7 mmol/L (3.5-5.1); Total Bilirubin 0.4 mg/dL (0.2-1.3); Total Protein 5.7 g/dL (6.3-8.2)
[2019-02-27] MEDS: IPRATROPIUM-ALBUTEROL 3 ML NEB INHALATION SCH ×3 (08:19→20:23)
[2019-02-27] MEDS: LEVOTHYROXINE 100 MCG TAB PO SCH (08:41)
[2019-02-27] MEDS: POTASSIUM CHLORIDE ER 10 MEQ TAB.ER.PRT PO SCH (08:41)
[2019-02-27] MEDS: AZITHROMYCIN 500 MG TAB PO SCH (08:41)
[2019-02-27] MEDS: ARIPiprazole 5 MG TAB PO SCH (08:41)
[2019-02-27] MEDS: ASPIRIN 81 MG PO SCH (08:41)
[2019-02-27] MEDS: METOPROLOL SUCCINATE (ER) 25 MG TAB.ER.24H PO SCH (08:41)
[2019-02-27] MEDS: methylPREDNISolone 4 MG TAB TAPER PO SCH (08:41)
[2019-02-27] MEDS: PANTOPRAZOLE 40 MG TABLET PO SCH ×2 (08:41→20:27)
[2019-02-27] MEDS: FUROSEMIDE 10 MG/ML 4 ML VIAL IV SCH (08:42)
[2019-02-27] MEDS: ENOXAPARIN 40 MG/0.4 ML SYRINGE SQ SCH (08:42)
[2019-02-27] MEDS: ALPRAZolam 0.5 MG TAB PO PRN ×2 (08:50→20:57)
--- NOTE | 2019-02-27 10:26 | P.PN ---
Subjective Progress Note Date: 02/27/19 This is a 63-year-old female patient who presented to the ER with complaints of shortness of breath patient reports that she had increasingly short of breath last week that progressively came worse over the weekend. Patient does have a known past medical history of BOOP, asthma, heart failure, COPD, GERD, osteoarthritis, sleep apnea, cardiomyopathy, multiple thoracic compression fractures, left breast cancer status post cystectomy right renal carcinoma with partial nephrectomy cervical cancer. Chest x-ray completed showing correlation for volume overload. Previous left lower infiltrate has improved. EKG performed showing normal sinus rhythm, left bundle branch block. Influenza negative. Cardiology and pulmonary service is consulted. Patient started on IV Lasix 40 mg every 8 hours DuoNeb breathing treatments and Solu-Medrol. At this time patient does state some improvement with her shortness of breath. Patient denies chest pain. Patient denies nausea vomiting or diarrhea. Patient denies any urinary burning or frequency . On 02/27/2019 patient's alert and oriented 3. Patient reports she feels slightly improved. Patient remains on IV Lasix. Patient has been transitioned to by mouth prednisone taper per pulmonary services. At this time patient states improvement with shortness of breath. Patient denies chest pain. Patient denies vomiting or diarrhea. Patient denies any urinary burning or frequency. Objective - Vital Signs Vital signs: Vital Signs Temp 97.0 F L 02/27/19 07:58 Pulse 84 02/27/19 08:33 Resp 16 02/27/19 07:58 BP 111/65 02/27/19 07:58 Pulse Ox 98 02/27/19 08:21 Intake & Output 02/26/19 02/27/19 02/27/19 18:59 06:59 18:59 Intake Total 720 240 Output Total 1300 1600 Balance -580 -1600 240 Weight 72.3 kg 72.1 kg Intake: Oral 720 240 Output: Urine 1300 1600 Other: Voiding Method Toilet Bedside Commode # Bowel Movements 1 - Exam Head normocephalic Neck supple Lungs clear to auscultation bilaterally no wheezing or crackles Heart regular rate and rhythm S1-S2, no rub or gallop Abdomen is soft nontender nondistended positive bowel sounds no hepatosplenomegaly Extremities no edema Neuro alert and orientated to 3 - Labs CBC & Chem 7: 02/27/19 06:35 02/27/19 06:35 Labs: Abnormal Lab Results - Last 24 Hours (Table) 02/26/19 02/27/19 02/27/19 Range/Units 11:50 06:35 06:35 WBC 16.3 H (3.8-10.6) k/uL RDW 17.4 H (11.5-15.5) % Neutrophils # 13.7 H (1.3-7.7) k/uL Chloride 97 L (98-107) mmol/L Carbon Dioxide 36 H (22-30) mmol/L BUN 42 H (7-17) mg/dL POC Glucose (mg/dL) 128 H (75-99) mg/dL Total Protein 5.7 L (6.3-8.2) g/dL Albumin 3.3 L (3.5-5.0) g/dL Assessment and Plan Assessment: 1. Increased shortness of breath due to exacerbation of chronic obstructive pulmonary disease and acute exacerbation of diastolic congestive heart failure. Patient started on IV Lasix 40 mg every 8 hours. 2-D echo completed showing EF of 20-25%. 2. Chronic diastolic congestive heart failure. maintain on IV Lasix at this time. Cardiology service following 3. Possible Acute tracheobronchitis. Patient currently on Rocephin. Pulmonary services are following 4. History of bronchiolitis obliterans organizing pneumonia. Patient follows with pulmonary services 5. History of Hodgkin's lymphoma 6. History of nonischemic cardiomyopathy 7. History of hyperlipidemia 8. Hypothyroidism 9. History of breast cancer with prior cystectomy 10. Aortic insufficiency 11. Sleep apnea 12. History of GERD 13. History of right renal carcinoma with partial nephrectomy 14. History of T8 and T11 vertebral fracture. Patient follows with Dr. Johnson 15. History of osteoporosis DVT prophylaxis Lovenox. GI prophylaxis Protonix I performed an examination of the patient and discussed their management with the Nurse Practitioner. I have reviewed the Nurse Practitioner's notes and agree with the documented findings and plan of care
--- NOTE | 2019-02-27 13:07 | P.PN ---
Subjective Progress Note Date: 02/27/19 This is a pleasant 63-year-old female who follows with Dr. Jasso in the office. She has a known history of hyperlipidemia, nonischemic cardio myopathy, hyperlipidemia, hypothyroidism, history of breast cancer with prior mastectomy, aortic valve insufficiency, nonrheumatic, Hodgkin's lymphoma for which the patient has undergone chemotherapy and radiation, obstructive sleep apnea, BOOP (bronchiolitis obliterans organizing pneumonia), and asthma, she has had several recent admissions to the hospital. She consider hospital on this occasion with symptoms of progressively worsening shortness of breath. According to the patient, she's been dealing with a bronchitis as an outpatient, was recently put on antibiotics by Dr. Wolf, on Tuesday she went to see Dr. Naqvi and was started on a different antibiotic. Dates that she became so short of breath, mostly with exertion, but she was unable to even use her breathing treatment, EMS was called and the patient was brought to the hospital for further evaluation and treatment. Her chest x-ray on admission here suggested volume overload, the previous left lower lobe infiltrate has improved. Her EKG showed a normal sinus rhythm with a left bundle-branch block pattern. White blood cell count 15.2, hemoglobin 13, platelet count 460. Sodium 139, potassium 3.8, BUN 19 and creatinine 0.7. Troponin 0.012, BNP level 6690. Influenza A and B-. Blood pressure 110/60 with a heart rate in the 90s, 96% on 2 L of oxygen. The patient was initiated on IV Lasix in the emergency room, she states that she has put out quite a bloody urine through the night last night and this morning is feeling somewhat better however not back to her normal just yet. 02/27 2019 Patient was seen and examined this morning, she does state that her breathing is mildly improved overall today. Her repeat echocardiogram with Doppler study shows an ejection fraction of 20-25%, most recent echo prior to this revealed an ejection fraction in the range of 50-55%. We did have a discussion with the patient today regarding initiating Entresto,, we will check into coverage and initiate this for her. Her white blood cell count today is 16.3, hemoglobin 12.6, platelet count 450. Sodium 140, potassium 3.7, BUN 42 and creatinine 0.8. Diuresing well on IV Lasix. IV Lasix as well decreased to 40 mg daily. Objective - Vital Signs Vital signs: Vital Signs Temp 97.0 F L 02/27/19 07:58 Pulse 87 02/27/19 12:00 Resp 16 02/27/19 12:00 BP 108/56 02/27/19 12:00 Pulse Ox 97 02/27/19 12:00 Intake & Output 02/26/19 02/27/19 02/27/19 18:59 06:59 18:59 Intake Total 720 240 Output Total 1300 1600 700 Balance -580 1600 -460 Weight 72.3 kg 72.1 kg Intake: Oral 720 240 Output: Urine 1300 1600 700 Other: Voiding Method Toilet Bedside Commode # Voids 2 # Bowel Movements 1 - Exam PHYSICAL EXAMINATION: GENERAL: 63-year-old female in no acute distress at the time of my examination HEENT: Head is atraumatic, normocephalic. Pupils equal, round. Sclera anicteric. Conjunctiva are clear. Mucous membranes of the mouth are moist. Neck is supple. There is elevated jugular venous pressure. No carotid bruit is heard. HEART EXAMINATION: Heart S1 S2 1 systolic murmur is heard CHEST EXAMINATION: Lungs reveal scattered wheezing throughout, decreased air exchange bilaterally and diminished air entry to the bases. Evidence of kyphosis ABDOMEN: Soft, nontender. Bowel sounds are heard. No organomegaly noted. EXTREMITIES: 2+ peripheral pulses with no evidence of peripheral edema and no calf tenderness noted. NEUROLOGIC patient is awake, alert and oriented 3 . . - Labs CBC & Chem 7: 02/27/19 06:35 02/27/19 06:35 Labs: Abnormal Lab Results - Last 24 Hours (Table) 02/27/19 02/27/19 Range/Units 06:35 06:35 WBC 16.3 H (3.8-10.6) k/uL RDW 17.4 H (11.5-15.5) % Neutrophils # 13.7 H (1.3-7.7) k/uL Chloride 97 L (98-107) mmol/L Carbon Dioxide 36 H (22-30) mmol/L BUN 42 H (7-17) mg/dL Total Protein 5.7 L (6.3-8.2) g/dL Albumin 3.3 L (3.5-5.0) g/dL Assessment and Plan Plan: Assessment and plan #1 systolic congestive heart failure acute on chronic #2 possible acute tracheobronchitis, on antibiotic #3 history of Hodgkin's lymphoma #4 nonischemic cardiomyopathy #5 hyperlipidemia #6 history of breast cancer with prior mastectomy #7 hypothyroidism #8 aortic insufficiency, most recent echo was performed last year which revealed an ejection fraction of 50-55%. #9 sleep apnea #10 GERD #11 history of right renal carcinoma with partial nephrectomy #12 BOOP #13 osteoporosis Plan Repeat echocardiogram with Doppler study revealed an ejection fraction of 20- 25%. We will continue current medications, decrease IV Lasix to 40 mg daily, add Entresto to the patient's medication regime. DNP note has been reviewed, I agree with a documented findings and plan of care. Patient was seen and examined.
[2019-02-27] MEDS: SACUBITRIL/VALSARTAN 24 MG-26 MG TABLET PO SCH ×2 (15:56→21:07)
--- NOTE | 2019-02-27 16:09 | P.PN ---
Subjective Progress Note Date: 02/27/19 Principal diagnosis: Acute exacerbation of congestive heart failure with systolic dysfunction On 02/27/2019 patient seen in follow-up on selective care unit. She states her breathing has improved, complaints of chest pain. Patient had a repeat echocardiogram with Doppler which showed an ejection fraction of 20-25% to get acutely worse from her previous study when an ejection fraction was in the range of 50-55%. ALLERGIES following, and patient will be initiated on Entresto if her insurance covers it. He is on IV diuretics, and her IV Lasix has been decreased to 40 mg daily. His been in negative fluid balance. She is on 2 L of oxygen per nasal cannula pulse ox is 97%. Lung sounds are positive for bibasilar crackles and expiratory wheezes, on empiric antibiotics in the form of Zithromax, Medrol Dosepak Objective - Vital Signs Vital signs: Vital Signs Temp 97.0 F L 02/27/19 07:58 Pulse 88 02/27/19 13:37 Resp 16 02/27/19 13:37 BP 108/56 02/27/19 12:00 Pulse Ox 97 02/27/19 12:00 Intake & Output 02/26/19 02/27/19 02/27/19 18:59 06:59 18:59 Intake Total 720 480 Output Total 1300 1600 700 Balance -580 -1600 -220 Weight 72.3 kg 72.1 kg Intake: Oral 720 480 Output: Urine 1300 1600 700 Other: Voiding Method Toilet Bedside Commode # Voids 2 # Bowel Movements 1 - Exam GENERAL EXAM: Alert, active, comfortable in no apparent distress. HEAD: Normocephalic/atraumatic. EYES: Normal reaction of pupils, equal size. Conjunctiva pink, sclera white. NOSE: Clear with pink turbinates. THROAT: No erythema or exudates. NECK: No masses, no JVD, no thyroid enlargement, no adenopathy. CHEST: No chest wall deformity. Symmetrical expansion. LUNGS: Equal air entry with no crackles, wheeze, rhonchi or dullness. CVS: Regular rate and rhythm, normal S1 and S2, no gallops, no murmurs, no rubs ABDOMEN: Soft, nontender. No hepatosplenomegaly, normal bowel sounds, no guarding or rigidity. EXTREMITIES: No clubbing, no edema, no cyanosis, 2+ pulses and upper and lower extremities. MUSCULOSKELETAL: Muscle strength and tone normal. SPINE: No scoliosis or deformity SKIN: No rashes CENTRAL NERVOUS SYSTEM: Alert and oriented -3. No focal deficits, tone is normal in all 4 extremities. PSYCHIATRIC: Alert and oriented -3. Appropriate affect. Intact judgment and insight. - Labs CBC & Chem 7: 02/27/19 06:35 02/27/19 06:35 Labs: Abnormal Lab Results - Last 24 Hours (Table) 02/27/19 02/27/19 Range/Units 06:35 06:35 WBC 16.3 H (3.8-10.6) k/uL RDW 17.4 H (11.5-15.5) % Neutrophils # 13.7 H (1.3-7.7) k/uL Chloride 97 L (98-107) mmol/L Carbon Dioxide 36 H (22-30) mmol/L BUN 42 H (7-17) mg/dL Total Protein 5.7 L (6.3-8.2) g/dL Albumin 3.3 L (3.5-5.0) g/dL Assessment and Plan Plan: Assessment: #1. Dyspnea, related to acute exacerbation of congestive heart failure with impaired systolic function, EF of 20-25% #2. History of bronchiolitis of S organizing pneumonia, stable #3. Mild acute bronchitis #4. Mild COPD, stable #5. I potentially #6. Hypothyroidism #7. Cardiomyopathy #8. History of breast cancer, post mastectomy #9. History of Hodgkin's lymphoma #10. History of previous nephrectomy for renal cell carcinoma #11. GERD #12. History of DJD #13. History of multiple thoracic compression fractures #14. Hiatal hernia Plan: Continue with current medical treatment, patient is on IV diuretics, she is being considered for Entresto. Negative fluid balance, continue monitoring the renal profile and electrolytes. Continue Medrol Dosepak Zithromax and nebulized bronchodilators I performed a history & physical examination of the patient and discussed their management with my nurse practitioner, Esther Yusuf. I reviewed the nurse practitioner's note and agree with the documented findings and plan of care. Lung sounds are positive for diminished with a few expiratory wheezes. The findings and the impression was discussed with the patient. I attest to the documentation by the nurse practitioner. Time with Patient: Less than 30
[2019-02-27] MEDS: SERTRALINE 100 MG TAB PO SCH (17:17)
[2019-02-27] MEDS: MONTELUKAST 10 MG TAB PO SCH (20:27)
[2019-02-27] MEDS: ATORVASTATIN 20 MG TAB PO SCH (20:27)
[2019-02-27] MEDS: SPIRONOLACTONE 25 MG TAB PO SCH (20:28)
[2019-02-28 07:23] LABS: Anisocytosis Slight; Basophils % (A) 0 %; Eosinophils # (A) 0.1 k/uL (0-0.7); Eosinophils % (A) 1 %; HGB 12.2 gm/dL (11.4-16.0); Lymphocytes # (A) 2.2 k/uL (1.0-4.8); Lymphocytes % (A) 19 %; MCH 26.2 pg (25.0-35.0); MCV 81.9 fL (80.0-100.0); Mean Platelet Volume 7.2; Monocytes # (A) 0.8 k/uL (0-1.0); Monocytes % (A) 7 %; Neutrophils # (A) 8.6 k/uL (1.3-7.7); Neutrophils % (A) 73 %; Platelet Count 454 k/uL (150-450); RBC 4.64 m/uL (3.80-5.40); RDW 17.6 % (11.5-15.5); WBC 11.8 k/uL (3.8-10.6)
[2019-02-28 07:35] LABS: ALT 33 U/L (9-52); AST 15 U/L (14-36); Albumin 2.9 g/dL (3.5-5.0); Alkaline Phosphatase 64 U/L (38-126); Anion Gap 2 mmol/L; Blood Urea Nitrogen 37 mg/dL (7-17); Calcium 9.3 mg/dL (8.4-10.2); Chloride 97 mmol/L (98-107); Glucose 75 mg/dL (74-99); Sodium 139 mmol/L (137-145); Total Bilirubin 0.5 mg/dL (0.2-1.3); Total Protein 5.2 g/dL (6.3-8.2)
[2019-02-28 07:43] LABS: Carbon Dioxide 40 mmol/L (22-30)
[2019-02-28] MEDS: IPRATROPIUM-ALBUTEROL 3 ML NEB INHALATION SCH ×3 (08:09→21:36)
[2019-02-28] MEDS: LEVOTHYROXINE 100 MCG TAB PO SCH (08:26)
[2019-02-28] MEDS: ASPIRIN 81 MG PO SCH (08:26)
[2019-02-28] MEDS: AZITHROMYCIN 500 MG TAB PO SCH (08:26)
[2019-02-28] MEDS: PANTOPRAZOLE 40 MG TABLET PO SCH ×2 (08:26→21:22)
[2019-02-28] MEDS: POTASSIUM CHLORIDE ER 10 MEQ TAB.ER.PRT PO SCH (08:26)
[2019-02-28] MEDS: ENOXAPARIN 40 MG/0.4 ML SYRINGE SQ SCH (08:27)
[2019-02-28] MEDS: ARIPiprazole 5 MG TAB PO SCH (08:27)
[2019-02-28] MEDS: methylPREDNISolone 4 MG TAB TAPER PO SCH (08:37)
[2019-02-28] MEDS: SACUBITRIL/VALSARTAN 24 MG-26 MG TABLET PO SCH ×2 (08:46→21:22)
[2019-02-28] MEDS ORDERED: FUROSEMIDE 10 MG/ML 4 ML VIAL IV SCH (09:00)
--- NOTE | 2019-02-28 11:00 | P.PN ---
Subjective Progress Note Date: 02/28/19 This is a 63-year-old female patient who presented to the ER with complaints of shortness of breath patient reports that she had increasingly short of breath last week that progressively came worse over the weekend. Patient does have a known past medical history of BOOP, asthma, heart failure, COPD, GERD, osteoarthritis, sleep apnea, cardiomyopathy, multiple thoracic compression fractures, left breast cancer status post cystectomy right renal carcinoma with partial nephrectomy cervical cancer. Chest x-ray completed showing correlation for volume overload. Previous left lower infiltrate has improved. EKG performed showing normal sinus rhythm, left bundle branch block. Influenza negative. Cardiology and pulmonary service is consulted. Patient started on IV Lasix 40 mg every 8 hours DuoNeb breathing treatments and Solu-Medrol. At this time patient does state some improvement with her shortness of breath. Patient denies chest pain. Patient denies nausea vomiting or diarrhea. Patient denies any urinary burning or frequency . On 02/27/2019 patient's alert and oriented 3. Patient reports she feels slightly improved. Patient remains on IV Lasix. Patient has been transitioned to by mouth prednisone taper per pulmonary services. At this time patient states improvement with shortness of breath. Patient denies chest pain. Patient denies vomiting or diarrhea. Patient denies any urinary burning or frequency. On 02/28/2019 patient's alert and oriented 3. Patient has been started on Entresto per cardiology. Patient remains on IV Lasix 40 mg daily. Will order at this time patient reports some improvement shortness breath. Patient denies chest pain. Patient denies urinary burning or frequency. Patient denies chest pain or shortness breath Objective - Vital Signs Vital signs: Vital Signs Temp 97.6 F 02/28/19 08:25 Pulse 83 02/28/19 08:25 Resp 18 02/28/19 08:25 BP 87/51 02/28/19 08:25 Pulse Ox 98 02/28/19 08:25 Intake & Output 02/27/19 02/28/19 02/28/19 18:59 06:59 18:59 Intake Total 716 230 240 Output Total 700 500 Balance 16 230 -260 Weight 72.3 kg Intake: Oral 716 230 240 Output: Urine 700 500 Other: Voiding Method Toilet Bedside Commode # Voids 2 - Exam Head normocephalic Neck supple Lungs clear to auscultation bilaterally no wheezing or crackles Heart regular rate and rhythm S1-S2, no rub or gallop Abdomen is soft nontender nondistended positive bowel sounds no hepa tosplenomegaly Extremities no edema Neuro alert and orientated to 3 - Labs CBC & Chem 7: 02/28/19 06:42 02/28/19 06:42 Labs: Abnormal Lab Results - Last 24 Hours (Table) 02/28/19 02/28/19 Range/Units 06:42 06:42 WBC 11.8 H (3.8-10.6) k/uL RDW 17.6 H (11.5-15.5) % Plt Count 454 H (150-450) k/uL Neutrophils # 8.6 H (1.3-7.7) k/uL Chloride 97 L (98-107) mmol/L Carbon Dioxide 40 H (22-30) mmol/L BUN 37 H (7-17) mg/dL Total Protein 5.2 L (6.3-8.2) g/dL Albumin 2.9 L (3.5-5.0) g/dL Assessment and Plan Assessment: 1. Increased shortness of breath due to exacerbation of chronic obstructive pulmonary disease and acute exacerbation of diastolic congestive heart failure. Patient started on IV Lasix 40 mg every 8 hours. 2. Chronic diastolic congestive heart failure. maintain on IV Lasix at this time. Repeat 2-D echo completed showing EF between 20 -25% which is a drop compared to 2-D echo completed in May 2018. Patient has been started on contrast oh per cardiology 3. Possible Acute tracheobronchitis. Patient currently on Rocephin. Pulmonary services are following 4. History of bronchiolitis obliterans organizing pneumonia. Patient follows with pulmonary services 5. History of Hodgkin's lymphoma 6. History of nonischemic cardiomyopathy 7. History of hyperlipidemia 8. Hypothyroidism 9. History of breast cancer with prior cystectomy 10. Aortic insufficiency 11. Sleep apnea 12. History of GERD 13. History of right renal carcinoma with partial nephrectomy 14. History of T8 and T11 vertebral fracture. Patient follows with Dr. Johnson 15. History of osteoporosis 16. Hypotension. Patient was started on Entresto per cardiology. Blood pressure dropped into the 80s 90s. Patient's chest cardiology will continue to monitor DVT prophylaxis Lovenox. GI prophylaxis Protonix I performed an examination of the patient and discussed their management with the Nurse Practitioner. I have reviewed the Nurse Practitioner's notes and agree with the documented findings and plan of care
[2019-02-28] MEDS: ALPRAZolam 0.5 MG TAB PO PRN ×2 (11:04→21:22)
[2019-02-28] MEDS: FUROSEMIDE 40 MG TAB PO SCH (12:31)
--- NOTE | 2019-02-28 14:01 | P.PN ---
Subjective Progress Note Date: 02/28/19 This is a pleasant 63-year-old female who follows with Dr. Jasso in the office. She has a known history of hyperlipidemia, nonischemic cardio myopathy, hyperlipidemia, hypothyroidism, history of breast cancer with prior mastectomy, aortic valve insufficiency, nonrheumatic, Hodgkin's lymphoma for which the patient has undergone chemotherapy and radiation, obstructive sleep apnea, BOOP (bronchiolitis obliterans organizing pneumonia), and asthma, she has had several recent admissions to the hospital. She consider hospital on this occasion with symptoms of progressively worsening shortness of breath. According to the patient, she's been dealing with a bronchitis as an outpatient, was recently put on antibiotics by Dr. Wolf, on Tuesday she went to see Dr. Naqvi and was started on a different antibiotic. Dates that she became so short of breath, mostly with exertion, but she was unable to even use her breathing treatment, EMS was called and the patient was brought to the hospital for further evaluation and treatment. Her chest x-ray on admission here suggested volume overload, the previous left lower lobe infiltrate has improved. Her EKG showed a normal sinus rhythm with a left bundle-branch block pattern. White blood cell count 15.2, hemoglobin 13, platelet count 460. Sodium 139, potassium 3.8, BUN 19 and creatinine 0.7. Troponin 0.012, BNP level 6690. Influenza A and B-. Blood pressure 110/60 with a heart rate in the 90s, 96% on 2 L of oxygen. The patient was initiated on IV Lasix in the emergency room, she states that she has put out quite a bloody urine through the night last night and this morning is feeling somewhat better however not back to her normal just yet. 02/27 2019 Patient was seen and examined this morning, she does state that her breathing is mildly improved overall today. Her repeat echocardiogram with Doppler study shows an ejection fraction of 20-25%, most recent echo prior to this revealed an ejection fraction in the range of 50-55%. We did have a discussion with the patient today regarding initiating Entresto,, we will check into coverage and initiate this for her. Her white blood cell count today is 16.3, hemoglobin 12.6, platelet count 450. Sodium 140, potassium 3.7, BUN 42 and creatinine 0.8. Diuresing well on IV Lasix. IV Lasix as well decreased to 40 mg daily. 02/28/2019 Patient was seen and examined this morning, overall she does state that she is feeling better today. Her blood pressure was running in the 80s this morning, we did give the Entresto, dose of Toprol was decreased to 25 mg and will be giv en in the evening daily, IV Lasix was discontinued and changed to oral. White blood cell count 11.8, hemoglobin 12.2, platelet count 454. Sodium 139, potassium 4.0, BUN 37 and creatinine 0.8. Objective - Vital Signs Vital signs: Vital Signs Temp 97.4 F L 02/28/19 11:54 Pulse 63 02/28/19 11:54 Resp 18 02/28/19 11:54 BP 91/50 02/28/19 11:54 Pulse Ox 99 02/28/19 11:54 Intake & Output 02/27/19 02/28/19 02/28/19 18:59 06:59 18:59 Intake Total 716 230 240 Output Total 700 500 Balance 16 230 -260 Weight 72.3 kg Intake: Oral 716 230 240 Output: Urine 700 500 Other: Voiding Method Toilet Bedside Commode # Voids 2 - Exam PHYSICAL EXAMINATION: GENERAL: 63-year-old female in no acute distress at the time of my examination HEENT: Head is atraumatic, normocephalic. Pupils equal, round. Sclera anicter ic. Conjunctiva are clear. Mucous membranes of the mouth are moist. Neck is supple. There is elevated jugular venous pressure. No carotid bruit is heard. HEART EXAMINATION: Heart S1 S2 1 systolic murmur is heard CHEST EXAMINATION: Lungs reveal scattered wheezing throughout, decreased air exc hange bilaterally and diminished air entry to the bases. Evidence of kyphosis ABDOMEN: Soft, nontender. Bowel sounds are heard. No organomegaly noted. EXTREMITIES: 2+ peripheral pulses with no evidence of peripheral edema and no calf tenderness noted. NEUROLOGIC patient is awake, alert and oriented 3 . . - Labs CBC & Chem 7: 02/28/19 06:42 02/28/19 06:42 Labs: Abnormal Lab Results - Last 24 Hours (Table) 02/28/19 02/28/19 Range/Units 06:42 06:42 WBC 11.8 H (3.8-10.6) k/uL RDW 17.6 H (11.5-15.5) % Plt Count 454 H (150-450) k/uL Neutrophils # 8.6 H (1.3-7.7) k/uL Chloride 97 L (98-107) mmol/L Carbon Dioxide 40 H (22-30) mmol/L BUN 37 H (7-17) mg/dL Total Protein 5.2 L (6.3-8.2) g/dL Albumin 2.9 L (3.5-5.0) g/dL Assessment and Plan Plan: Assessment and plan #1 systolic congestive heart failure acute on chronic #2 possible acute tracheobronchitis, on antibiotic #3 history of Hodgkin's lymphoma #4 nonischemic cardiomyopathy #5 hyperlipidemia #6 history of breast cancer with prior mastectomy #7 hypothyroidism #8 aortic insufficiency, most recent echo was performed last year which revealed an ejection fraction of 50-55%. #9 sleep apnea #10 GERD #11 history of right renal carcinoma with partial nephrectomy #12 BOOP #13 osteoporosis Plan We will decrease beta dionicio to 25 mg daily and given in the at bedtime, discontinue IV Lasix and change management manager to oral diuretics today. DNP note has been reviewed, I agree with a documented findings and plan of care. Patient was seen and examined.
[2019-02-28] MEDS: METOPROLOL SUCCINATE (ER) 25 MG TAB.ER.24H PO SCH (15:16)
--- NOTE | 2019-02-28 15:56 | PN ---
PROGRESS NOTE DATE OF SERVICE: February 28, 2019 This is a 63-year-old female well known to our service. She has a history of profound shortness of breath, secondary to chronic systolic heart failure. She has developed a severe cardiomyopathy with an ejection fraction of 20% to 25%. In addition, she has a history of Hodgkin lymphoma, breast cancers, status post mastectomy, hypothyroidism, COPD, acute bronchitis, bronchiolitis obliterans organizing pneumonia, nephrectomy for renal cell carcinoma, GERD, DJD, multiple thoracic compression fractures, and hiatal hernia. The patient is doing a bit better. She was started on a new drug called Entresto. The patient hopefully will improve with this. Most of her issues are related to noncompliance with proper diet. She eats a lot of salty foods and fast foods. For this reason, she goes into heart failure quickly. Anyway today, she is feeling a bit better. Her lung disease is stable at this time. She was on prednisone for a long period of time for her bronchiolitis obliterans organizing pneumonia/cryptogenic organizing pneumonia, but that has been weaned off. Current vital signs are reviewed. Temperature 97.4. Heart rate 84, respiratory rate 18, blood pressure was 91/50, mean 63, 2 L saturation 99%. Appears in no acute distress. HEENT examination is grossly unremarkable. Mucous membranes are moist. No oral lesions. Neck is supple. Full range of motion. No adenopathy or thyromegaly. Neck veins are flat. Cardiovascular examination reveals distant heart sounds. S1, S2 normal. There is a small systolic murmur. No S3, S4 noted. Heart sounds are somewhat diminished. Lungs reveal some bibasilar crackles. Breath sounds are improved. No wheezes or rhonchi. Breath sounds are equal bilaterally. Abdomen is soft. Bowel sounds are heard. No masses or tenderness. Extremities are intact. Mild edema. No clubbing or cyanosis. Skin without rash. Neurologic examination is brief but nonfocal. LABS: Reviewed. White count 11.8, hemoglobin 12.2, hematocrit 38.0, platelet count 454,000. Sodium 139, potassium 4, chloride 97, CO2 40. Anion gap is 2, BUN and creatinine were 37 and 0.8. No recent x-ray to report. ASSESSMENT: 1. Profound shortness of breath, secondary to an acute exacerbation of her chronic systolic congestive heart failure with an ejection fraction of 20% to 25%. 2. Bronchiolitis obliterans organizing pneumonia/cryptogenic organizing pneumonia, status post 9 months of prednisone therapy, resolved. 3. Mild acute bronchitis and chronic obstructive pulmonary disease. 4. Hypothyroidism. 5. Cardiomyopathy. 6. History of breast cancer, status post mastectomy. 7. History of Hodgkin's lymphoma. 8. Previous nephrectomy for renal cell carcinoma. 9. Gastroesophageal reflux disease. 10.History of degenerative joint disease. 11.Multiple complex thoracic compression fractures. 12.Hiatal hernia. PLAN: The patient is again counseled about the importance of dietary discretion. She understands what she should and should not eat. She was started on Entresto. She will follow with me in the office. No additional recommendations are made. Pulmonary status is stable. MMODL / IJN: [id number] /
[2019-02-28] MEDS: SERTRALINE 100 MG TAB PO SCH (18:43)
[2019-02-28] MEDS: ATORVASTATIN 20 MG TAB PO SCH (21:22)
[2019-02-28] MEDS: SPIRONOLACTONE 25 MG TAB PO SCH (21:22)
[2019-02-28] MEDS: MONTELUKAST 10 MG TAB PO SCH (21:22)
[2019-03-01 06:54] LABS: Anisocytosis Slight; Basophils % (A) 0 %; Eosinophils # (A) 0.1 k/uL (0-0.7); Eosinophils % (A) 1 %; HCT 40.6 % (34.0-46.0); HGB 12.8 gm/dL (11.4-16.0); Lymphocytes # (A) 2.5 k/uL (1.0-4.8); Lymphocytes % (A) 22 %; MCH 25.5 pg (25.0-35.0); MCHC 31.5 g/dL (31.0-37.0); MCV 80.8 fL (80.0-100.0); Mean Platelet Volume 7.5; Microcytosis Slight; Monocytes # (A) 0.7 k/uL (0-1.0); Monocytes % (A) 6 %; Neutrophils # (A) 8.1 k/uL (1.3-7.7); Neutrophils % (A) 70 %; Platelet Count 471 k/uL (150-450); RBC 5.03 m/uL (3.80-5.40); RDW 17.1 % (11.5-15.5); WBC 11.5 k/uL (3.8-10.6)
[2019-03-01 07:07] LABS: ALT 31 U/L (9-52); AST 14 U/L (14-36); Albumin 2.9 g/dL (3.5-5.0); Alkaline Phosphatase 63 U/L (38-126); Anion Gap 3 mmol/L; Blood Urea Nitrogen 30 mg/dL (7-17); Calcium 9.3 mg/dL (8.4-10.2); Carbon Dioxide 37 mmol/L (22-30); Chloride 99 mmol/L (98-107); Glucose 78 mg/dL (74-99); Potassium 4.2 mmol/L (3.5-5.1); Sodium 139 mmol/L (137-145); Total Bilirubin 0.4 mg/dL (0.2-1.3)
[2019-03-01] MEDS: ARIPiprazole 5 MG TAB PO SCH (07:58)
[2019-03-01] MEDS: AZITHROMYCIN 500 MG TAB PO SCH (07:58)
[2019-03-01] MEDS: METOPROLOL SUCCINATE (ER) 25 MG TAB.ER.24H PO SCH (07:58)
[2019-03-01] MEDS: ASPIRIN 81 MG PO SCH (07:58)
[2019-03-01] MEDS: FUROSEMIDE 40 MG TAB PO SCH (07:58)
[2019-03-01] MEDS: PANTOPRAZOLE 40 MG TABLET PO SCH ×2 (07:58→20:31)
[2019-03-01] MEDS: LEVOTHYROXINE 100 MCG TAB PO SCH (07:58)
[2019-03-01] MEDS: methylPREDNISolone 4 MG TAB TAPER PO SCH (07:59)
[2019-03-01] MEDS: ENOXAPARIN 40 MG/0.4 ML SYRINGE SQ SCH (07:59)
[2019-03-01] MEDS: SACUBITRIL/VALSARTAN 24 MG-26 MG TABLET PO SCH ×2 (07:59→20:31)
[2019-03-01] MEDS: POTASSIUM CHLORIDE ER 10 MEQ TAB.ER.PRT PO SCH (08:08)
[2019-03-01] MEDS: IPRATROPIUM-ALBUTEROL 3 ML NEB INHALATION SCH ×3 (08:51→20:44)
--- NOTE | 2019-03-01 09:23 | P.PN ---
Subjective Progress Note Date: 03/01/19 This is a 63-year-old female patient who presented to the ER with complaints of shortness of breath patient reports that she had increasingly short of breath last week that progressively came worse over the weekend. Patient does have a known past medical history of BOOP, asthma, heart failure, COPD, GERD, osteoarthritis, sleep apnea, cardiomyopathy, multiple thoracic compression fractures, left breast cancer status post cystectomy right renal carcinoma with partial nephrectomy cervical cancer. Chest x-ray completed showing correlation for volume overload. Previous left lower infiltrate has improved. EKG performed showing normal sinus rhythm, left bundle branch block. Influenza negative. Cardiology and pulmonary service is consulted. Patient started on IV Lasix 40 mg every 8 hours DuoNeb breathing treatments and Solu-Medrol. At this time patient does state some improvement with her shortness of breath. Patient denies chest pain. Patient denies nausea vomiting or diarrhea. Patient denies any urinary burning or frequency . On 02/27/2019 patient's alert and oriented 3. Patient reports she feels slightly improved. Patient remains on IV Lasix. Patient has been transitioned to by mouth prednisone taper per pulmonary services. At this time patient states improvement with shortness of breath. Patient denies chest pain. Patient denies vomiting or diarrhea. Patient denies any urinary burning or frequency. On 02/28/2019 patient's alert and oriented 3. Patient has been started on Entresto per cardiology. Patient remains on IV Lasix 40 mg daily. Will order at this time patient reports some improvement shortness breath. Patient denies chest pain. Patient denies urinary burning or frequency. Patient denies chest pain or shortness breath On 03/01/2019 patient alert and oriented 3. Patient is currently on room air. She has been switched to by mouth Lasix and Lopressor has been decreased to 12 hypotension. Patient remains on entresto. We'll continue to monitor blood pressure throughout stay. At this time patient denies chest pain or shortness breath. Patient denies nausea vomiting or diarrhea. Patient denies any urinary burning or frequency. Objective - Vital Signs Vital signs: Vital Signs Temp 98.2 F 03/01/19 08:00 Pulse 84 03/01/19 09:01 Resp 18 03/01/19 08:00 BP 112/76 03/01/19 08:00 Pulse Ox 94 L 04/04/19 08:00 Intake & Output 02/28/19 03/01/19 03/01/19 18:59 06:59 18:59 Intake Total 762 120 Output Total 1300 300 Balance -538 -300 120 Weight 72.7 kg Intake: Oral 762 120 Output: Urine 1300 300 Other: Voiding Method Toilet Bedside Commode # Voids 1 - Exam Head normocephalic Neck supple Lungs clear to auscultation bilaterally no wheezing or crackles Heart regular rate and rhythm S1-S2, no rub or gallop Abdomen is soft nontender nondistended positive bowel sounds no hepatosplenomegaly Extremities no edema Neuro alert and orientated to 3 - Labs CBC & Chem 7: 03/01/19 06:01 03/01/19 06:01 Labs: Abnormal Lab Results - Last 24 Hours (Table) 03/01/19 03/01/19 Range/Units 06:01 06:01 WBC 11.5 H (3.8-10.6) k/uL RDW 17.1 H (11.5-15.5) % Plt Count 471 H (150-450) k/uL Neutrophils # 8.1 H (1.3-7.7) k/uL Carbon Dioxide 37 H (22-30) mmol/L BUN 30 H (7-17) mg/dL Total Protein 5.0 L (6.3-8.2) g/dL Albumin 2.9 L (3.5-5.0) g/dL Assessment and Plan Assessment: 1. Increased shortness of breath due to exacerbation of chronic obstructive pulmonary disease and acute exacerbation of diastolic congestive heart failure. Patient started on IV Lasix 40 mg every 8 hours. 2. Chronic diastolic congestive heart failure. maintain on IV Lasix at this time. Repeat 2-D echo completed showing EF between 20 -25% which is a drop compared to 2-D echo completed in May 2018. Patient has been started on Entresto per cardiology 3. Possible Acute tracheobronchitis. Patient currently on Rocephin. Pulmonary services are following 4. History of bronchiolitis obliterans organizing pneumonia. Patient follows with pulmonary services. Patient has been switched to Zithromax per pulmonary 5. History of Hodgkin's lymphoma 6. History of nonischemic cardiomyopathy 7. History of hyperlipidemia 8. Hypothyroidism 9. History of breast cancer with prior cystectomy 10. Aortic insufficiency 11. Sleep apnea 12. History of GERD 13. History of right renal carcinoma with partial nephrectomy 14. History of T8 and T11 vertebral fracture. Patient follows with Dr. Johnson 15. History of osteoporosis 16. Hypotension. Patient was started on Entresto per cardiology. Blood pressure dropped into the 80s 90s. Lasix has been switched to by mouth. Blood pressure does appear to be improving we'll continue to monitor DVT prophylaxis Lovenox. GI prophylaxis Protonix I performed an examination of the patient and discussed their management with the Nurse Practitioner. I have reviewed the Nurse Practitioner's notes and agree with the documented findings and plan of care
[2019-03-01] MEDS: HYDROcodone/APAP 7.5-325MG 1 EACH TAB PO PRN (09:59)
[2019-03-01] MEDS: ALPRAZolam 0.5 MG TAB PO PRN ×2 (09:59→20:31)
--- NOTE | 2019-03-01 15:20 | P.PN ---
Subjective Progress Note Date: 03/01/19 This is a pleasant 63-year-old female who follows with Dr. Jasso in the office. She has a known history of hyperlipidemia, nonischemic cardio myopathy, hyperlipidemia, hypothyroidism, history of breast cancer with prior mastectomy, aortic valve insufficiency, nonrheumatic, Hodgkin's lymphoma for which the patient has undergone chemotherapy and radiation, obstructive sleep apnea, BOOP (bronchiolitis obliterans organizing pneumonia), and asthma, she has had several recent admissions to the hospital. She consider hospital on this occasion with symptoms of progressively worsening shortness of breath. According to the patient, she's been dealing with a bronchitis as an outpatient, was recently put on antibiotics by Dr. Wolf, on Tuesday she went to see Dr. Naqvi and was started on a different antibiotic. Dates that she became so short of breath, mostly with exertion, but she was unable to even use her breathing treatment, EMS was called and the patient was brought to the hospital for further evaluation and treatment. Her chest x-ray on admission here suggested volume overload, the previous left lower lobe infiltrate has improved. Her EKG showed a normal sinus rhythm with a left bundle-branch block pattern. White blood cell count 15.2, hemoglobin 13, platelet count 460. Sodium 139, potassium 3.8, BUN 19 and creatinine 0.7. Troponin 0.012, BNP level 6690. Influenza A and B-. Blood pressure 110/60 with a heart rate in the 90s, 96% on 2 L of oxygen. The patient was initiated on IV Lasix in the emergency room, she states that she has put out quite a bloody urine through the night last night and this morning is feeling somewhat better however not back to her normal just yet. 02/27 2019 Patient was seen and examined this morning, she does state that her breathing is mildly improved overall today. Her repeat echocardiogram with Doppler study shows an ejection fraction of 20-25%, most recent echo prior to this revealed an ejection fraction in the range of 50-55%. We did have a discussion with the patient today regarding initiating Entresto,, we will check into coverage and initiate this for her. Her white blood cell count today is 16.3, hemoglobin 12.6, platelet count 450. Sodium 140, potassium 3.7, BUN 42 and creatinine 0.8. Diuresing well on IV Lasix. IV Lasix as well decreased to 40 mg daily. 02/28/2019 Patient was seen and examined this morning, overall she does state that she is feeling better today. Her blood pressure was running in the 80s this morning, we did give the Entresto, dose of Toprol was decreased to 25 mg and will be giv en in the evening daily, IV Lasix was discontinued and changed to oral. White blood cell count 11.8, hemoglobin 12.2, platelet count 454. Sodium 139, potassium 4.0, BUN 37 and creatinine 0.8. 03/01/2019 Patient was seen and examined this morning, overall doing well. Hemodynamically stable. I pressure 114/50 with morning with a heart rate in the 80s. White blood cell count 11.5, hemoglobin 12.8, platelet count 471. Sodium 139, potassium 4.2, BUN 30 and creatinine 0.6. Objective - Vital Signs Vital signs: Vital Signs Temp 98.2 F 03/01/19 08:00 Pulse 82 03/01/19 13:05 Resp 18 03/01/19 12:00 BP 114/49 03/01/19 12:00 Pulse Ox 96 03/01/19 12:00 Intake & Output 02/28/19 03/01/19 03/01/19 18:59 06:59 18:59 Intake Total 762 360 Output Total 1300 300 800 Balance -538 -300 -440 Weight 72.7 kg Intake: Oral 762 360 Output: Urine 1300 300 800 Other: Voiding Method Toilet Bedside Commode # Voids 1 1 - Exam PHYSICAL EXAMINATION: GENERAL: 63-year-old female in no acute distress at the time of my exa mination HEENT: Head is atraumatic, normocephalic. Pupils equal, round. Sclera anicteric. Conjunctiva are clear. Mucous membranes of the mouth are moist. Neck is supple. There is elevated jugular venous pressure. No carotid bruit is heard. HEART EXAMINATION: Heart S1 S2 1 systolic murmur is heard CHEST EXAMINATION: Lungs reveal scattered wheezing throughout, decreased air exchange bilaterally and diminished air entry to the bases. Evidence of kyphosis ABDOMEN: Soft, nontender. Bowel sounds are heard. No organomegaly noted. EXTREMITIES: 2+ peripheral pulses with no evidence of peripheral edema and no calf tenderness noted. NEUROLOGIC patient is awake, alert and oriented 3 . . - Labs CBC & Chem 7: 03/01/19 06:01 03/01/19 06:01 Labs: Abnormal Lab Results - Last 24 Hours (Table) 03/01/19 03/01/19 Range/Units 06:01 06:01 WBC 11.5 H (3.8-10.6) k/uL RDW 17.1 H (11.5-15.5) % Plt Count 471 H (150-450) k/uL Neutrophils # 8.1 H (1.3-7.7) k/uL Carbon Dioxide 37 H (22-30) mmol/L BUN 30 H (7-17) mg/dL Total Protein 5.0 L (6.3-8.2) g/dL Albumin 2.9 L (3.5-5.0) g/dL Assessment and Plan Plan: Assessment and plan #1 systolic congestive heart failure acute on chronic #2 possible acute tracheobronchitis, on antibiotic #3 history of Hodgkin's lymphoma #4 nonischemic cardiomyopathy #5 hyperlipidemia #6 history of breast cancer with prior mastectomy #7 hypothyroidism #8 aortic insufficiency, most recent echo was performed last year which revealed an ejection fraction of 50-55%. #9 sleep apnea #10 GERD #11 history of right renal carcinoma with partial nephrectomy #12 BOOP #13 osteoporosis Plan From cardiology's perspective, we will continue current medications. DNP note has been reviewed, I agree with a documented findings and plan of care. Patient was seen and examined.
--- NOTE | 2019-03-01 15:39 | P.PN ---
Subjective Progress Note Date: 03/01/19 Principal diagnosis: Acute exacerbation of congestive heart failure with systolic dysfunction On 02/27/2019 patient seen in follow-up on selective care unit. She states her breathing has improved, complaints of chest pain. Patient had a repeat echocardiogram with Doppler which showed an ejection fraction of 20-25% to get acutely worse from her previous study when an ejection fraction was in the range of 50-55%. ALLERGIES following, and patient will be initiated on Entresto if her insurance covers it. He is on IV diuretics, and her IV Lasix has been decreased to 40 mg daily. His been in negative fluid balance. She is on 2 L of oxygen per nasal cannula pulse ox is 97%. Lung sounds are positive for bibasilar crackles and expiratory wheezes, on empiric antibiotics in the form of Zithromax, Medrol Dosepak On 03/01/2019 patient seen in follow-up on selective care unit, she is resting comfortably in bed, denies any worsening shortness of breath, she is on room ai r, maintaining good O2 saturations around 96%. Hemodynamically patient is stable, afebrile. No complaints of chest pain, no worsening dyspnea, no cough, no chest congestion. Patient had been started on interest to by cardiology, so far tolerating it well. Hemodynamically stable.'s on empiric antibiotics in the form of Zithromax, she is on oral Lasix, she is receiving nebulized bronchodilators, she continues on Medrol Dosepak. Boop is stable. She is maintaining negative fluid balance. His labs have been reviewed, and showed white blood cell count of 11.5, hemoglobin of 12.8, sodium is 139, potassium is 4.2, chloride is 99, CO2 is 37, B1 is 30 creatinine 0.65. Objective - Vital Signs Vital signs: Vital Signs Temp 98.2 F 03/01/19 08:00 Pulse 82 03/01/19 13:05 Resp 18 03/01/19 12:00 BP 114/49 03/01/19 12:00 Pulse Ox 96 03/01/19 12:00 Intake & Output 02/28/19 03/01/19 03/01/19 18:59 06:59 18:59 Intake Total 762 360 Output Total 1300 300 800 Balance -538 -300 -440 Weight 72.7 kg Intake: Oral 762 360 Output: Urine 1300 300 800 Other: Voiding Method Toilet Bedside Commode # Voids 1 1 - Exam GENERAL EXAM: Alert, active, comfortable in no apparent distress. HEAD: Normocephalic/atraumatic. EYES: Normal reaction of pupils, equal size. Conjunctiva pink, sclera white. NOSE: Clear with pink turbinates. THROAT: No erythema or exudates. NECK: No masses, no JVD, no thyroid enlargement, no adenopathy. CHEST: No chest wall deformity. Symmetrical expansion. LUNGS: Equal air entry with minimal crackles at the bases, but no wheeze, rhonchi or dullness. CVS: Regular rate and rhythm, normal S1 and S2, no gallops, no murmurs, no rubs ABDOMEN: Soft, nontender. No hepatosplenomegaly, normal bowel sounds, no guarding or rigidity. EXTREMITIES: No clubbing, no edema, no cyanosis, 2+ pulses and upper and lower extremities. MUSCULOSKELETAL: Muscle strength and tone normal. SPINE: No scoliosis or deformity SKIN: No rashes CENTRAL NERVOUS SYSTEM: Alert and oriented -3. No focal deficits, tone is normal in all 4 extremities. PSYCHIATRIC: Alert and oriented -3. Appropriate affect. Intact judgment and insight. - Labs CBC & Chem 7: 03/01/19 06:01 03/01/19 06:01 Labs: Abnormal Lab Results - Last 24 Hours (Table) 03/01/19 03/01/19 Range/Units 06:01 06:01 WBC 11.5 H (3.8-10.6) k/uL RDW 17.1 H (11.5-15.5) % Plt Count 471 H (150-450) k/uL Neutrophils # 8.1 H (1.3-7.7) k/uL Carbon Dioxide 37 H (22-30) mmol/L BUN 30 H (7-17) mg/dL Total Protein 5.0 L (6.3-8.2) g/dL Albumin 2.9 L (3.5-5.0) g/dL Assessment and Plan Plan: Assessment: #1. Dyspnea, related to acute exacerbation of congestive heart failure with impaired systolic function, EF of 20-25% #2. History of bronchiolitis of S organizing pneumonia, stable #3. Mild acute bronchitis #4. Mild COPD, stable #5. Hypertension #6. Hypothyroidism #7. Cardiomyopathy #8. History of breast cancer, post mastectomy #9. History of Hodgkin's lymphoma #10. History of previous nephrectomy for renal cell carcinoma #11. GERD #12. History of DJD #13. History of multiple thoracic compression fractures #14. Hiatal hernia Plan: We'll continue current medical treatment, patient has been started on Entresto, and tolerating it well so far. Breathing easier, feeling better overall. No cough or chest congestion, no fever, no phlegm production. Her blood stable. Continue with the Medrol Dosepak, nebulized dilators, and Zithromax. I performed a history & physical examination of the patient and discussed their management with my nurse practitioner, Esther Yusuf. I reviewed the nurse practitioner's note and agree with the documented findings and plan of care. Lung sounds are positive for diminished with a few bibasilar crackles. The findings and the impression was discussed with the patient. I attest to the documentation by the nurse practitioner. Time with Patient: Less than 30
[2019-03-01] MEDS: SERTRALINE 100 MG TAB PO SCH (17:53)
[2019-03-01] MEDS: MONTELUKAST 10 MG TAB PO SCH (20:31)
[2019-03-01] MEDS: ATORVASTATIN 20 MG TAB PO SCH (20:31)
[2019-03-01] MEDS: SPIRONOLACTONE 25 MG TAB PO SCH (21:29)
[2019-03-02 06:42] LABS: Anisocytosis Slight; Basophils % (A) 0 %; Eosinophils # (A) 0.1 k/uL (0-0.7); Eosinophils % (A) 1 %; HCT 42.7 % (34.0-46.0); HGB 13.8 gm/dL (11.4-16.0); Hypochromasia Slight; Lymphocytes # (A) 2.8 k/uL (1.0-4.8); Lymphocytes % (A) 18 %; MCH 25.9 pg (25.0-35.0); MCHC 32.3 g/dL (31.0-37.0); MCV 80.3 fL (80.0-100.0); Mean Platelet Volume 8.4; Microcytosis Slight; Monocytes # (A) 0.9 k/uL (0-1.0); Monocytes % (A) 6 %; Neutrophils # (A) 11.5 k/uL (1.3-7.7); Neutrophils % (A) 74 %; Platelet Count 424 k/uL (150-450); RBC 5.31 m/uL (3.80-5.40); RDW 17.3 % (11.5-15.5); WBC 15.5 k/uL (3.8-10.6)
[2019-03-02 06:55] LABS: ALT 29 U/L (9-52); AST 14 U/L (14-36); Alkaline Phosphatase 68 U/L (38-126); Anion Gap 4 mmol/L; Blood Urea Nitrogen 30 mg/dL (7-17); Calcium 9.6 mg/dL (8.4-10.2); Carbon Dioxide 35 mmol/L (22-30); Chloride 99 mmol/L (98-107); Glucose 81 mg/dL (74-99); Potassium 4.7 mmol/L (3.5-5.1); Sodium 138 mmol/L (137-145); Total Bilirubin 0.4 mg/dL (0.2-1.3); Total Protein 5.4 g/dL (6.3-8.2)
[2019-03-02] MEDS: IPRATROPIUM-ALBUTEROL 3 ML NEB INHALATION SCH ×2 (07:47→13:47)
[2019-03-02 08:15] VITALS: RESP 20
[2019-03-02] MEDS: SACUBITRIL/VALSARTAN 24 MG-26 MG TABLET PO SCH (08:46)
[2019-03-02] MEDS: METOPROLOL SUCCINATE (ER) 25 MG TAB.ER.24H PO SCH (08:46)
[2019-03-02] MEDS: ARIPiprazole 5 MG TAB PO SCH (08:46)
[2019-03-02] MEDS: methylPREDNISolone 4 MG TAB TAPER PO SCH (08:47)
[2019-03-02] MEDS: ASPIRIN 81 MG PO SCH (08:47)
[2019-03-02] MEDS: AZITHROMYCIN 500 MG TAB PO SCH (08:47)
[2019-03-02] MEDS: PANTOPRAZOLE 40 MG TABLET PO SCH (08:47)
[2019-03-02] MEDS: LEVOTHYROXINE 100 MCG TAB PO SCH (08:47)
[2019-03-02] MEDS: FUROSEMIDE 40 MG TAB PO SCH (08:47)
[2019-03-02] MEDS: POTASSIUM CHLORIDE ER 10 MEQ TAB.ER.PRT PO SCH (08:47)
[2019-03-02] MEDS: HYDROcodone/APAP 7.5-325MG 1 EACH TAB PO PRN (08:48)
[2019-03-02] MEDS: ENOXAPARIN 40 MG/0.4 ML SYRINGE SQ SCH (08:48)
[2019-03-02 11:13] VITALS: BP 83/53; TEMP 97.8
[2019-03-02] MEDS ORDERED: SPIRONOLACTONE 25 MG TAB PO SCH (11:45)
--- NOTE | 2019-03-02 11:59 | P.PN ---
Subjective Patient looks a lot better today and her breathing is improved significantly. She is less short of breath. No lower extremity edema Breath sounds have improved bilaterally no crackles Heart sounds S1 and S2 are soft no murmurs line abdomen soft Neck veins are flat Blood pressure 94/61 mmHg, pulse rate in the 80s, afebrile Impression Nonischemic cardio myopathy Severe lung disease Heart free medications of initiated and she is tolerating it well and despite the fact that her blood pressure is low she is asymptomatic Continue current medications follow-up of Dr. Jasso Objective - Vital Signs Vital signs: Vital Signs Temp 97.8 F 03/02/19 11:08 Pulse 85 03/02/19 11:08 Resp 20 03/02/19 11:08 BP 83/53 03/02/19 11:08 Pulse Ox 93 L 03/02/19 11:08 Intake & Output 03/01/19 03/02/19 03/02/19 18:59 06:59 18:59 Intake Total 600 Output Total 800 1000 Balance -200 -1000 Weight 72.6 kg Intake: Oral 600 Output: Urine 800 1000 Other: Voiding Method Toilet # Voids 2 1 - Labs CBC & Chem 7: 03/02/19 05:58 03/02/19 05:58 Labs: Abnormal Lab Results - Last 24 Hours (Table) 03/02/19 03/02/19 Range/Units 05:58 05:58 WBC 15.5 H (3.8-10.6) k/uL RDW 17.3 H (11.5-15.5) % Neutrophils # 11.5 H (1.3-7.7) k/uL Carbon Dioxide 35 H (22-30) mmol/L BUN 30 H (7-17) mg/dL Total Protein 5.4 L (6.3-8.2) g/dL Albumin 3.0 L (3.5-5.0) g/dL
--- NOTE | 2019-03-02 12:48 | P.DS ---
Providers Date of admission: 02/25/19 15:11 Expected date of discharge: 03/02/19 Attending physician: Michelle Naqvi Consults: 02/25/19 15:11 Consult Physician Routine Consulting Provider: Walt Valadez Consult Reason/Comments: dyspnea Do you want consulting provider notified?: Yes Consult Physician Routine Consulting Provider: Giancarlo Perez Consult Reason/Comments: chf Do you want consulting provider notified?: Yes Primary care physician: Michelle Naqvi Hospital Course: Discharge diagnosis 1. Increased shortness of breath due to exacerbation of chronic obstructive pulmonary disease and acute exacerbation of diastolic congestive heart failure. Patient started on IV Lasix 40 mg every 8 hours. Patient will be discharged on prednisone Solu-Medrol Dosepak and azithromycin. Patient to follow-up with her PCP and pulmonary and cardiology services. Lasix has been decreased to 40 mg daily per cardiology. 2. Chronic diastolic congestive heart failure. maintain on IV Lasix at this time. Repeat 2-D echo completed showing EF between 20 -25% which is a drop compared to 2-D echo completed in May 2018. Patient has been started on Entresto per cardiology 3. Possible Acute tracheobronchitis. Patient currently on Rocephin. Pulmonary services are following 4. History of bronchiolitis obliterans organizing pneumonia. Patient follows with pulmonary services. Patient has been switched to Zithromax per pulmonary 5. History of Hodgkin's lymphoma 6. History of nonischemic cardiomyopathy 7. History of hyperlipidemia 8. Hypothyroidism 9. History of breast cancer with prior cystectomy 10. Aortic insufficiency 11. Sleep apnea 12. History of GERD 13. History of right renal carcinoma with partial nephrectomy 14. History of T8 and T11 vertebral fracture. Patient follows with Dr. Johnson 15. History of osteoporosis 16. Hypotension. Patient was started on Entresto per cardiology. Blood pressure dropped into the 80s 90s. Lasix has been switched to by mouth. Blood pressure does appear to be improving we'll continue to monitor Hospital course This is a 63-year-old female patient who presented to the ER with complaints of shortness of breath patient reports that she had increasingly short of breath last week that progressively came worse over the weekend. Patient does have a known past medical history of BOOP, asthma, heart failure, COPD, GERD, osteoarthritis, sleep apnea, cardiomyopathy, multiple thoracic compression fractures, left breast cancer status post cystectomy right renal carcinoma with partial nephrectomy cervical cancer. Chest x-ray completed showing correlation for volume overload. Previous left lower infiltrate has improved. EKG performed showing normal sinus rhythm, left bundle branch block. Influenza negative. Cardiology and pulmonary service is consulted. Patient started on IV Lasix 40 mg every 8 hours DuoNeb breathing treatments and Solu-Medrol. At this time patient does state some improvement with her shortness of breath. Patient denies chest pain. Patient denies nausea vomiting or diarrhea. Patient denies any urinary burning or frequency . On 02/27/2019 patient's alert and oriented 3. Patient reports she feels slightly improved. Patient remains on IV Lasix. Patient has been transitioned to by mouth prednisone taper per pulmonary services. At this time patient states improvement with shortness of breath. Patient denies chest pain. Patient denies vomiting or diarrhea. Patient denies any urinary burning or frequency. On 02/28/2019 patient's alert and oriented 3. Patient has been started on Entresto per cardiology. Patient remains on IV Lasix 40 mg daily. Will order at this time patient reports some improvement shortness breath. Patient denies chest pain. Patient denies urinary burning or frequency. Patient denies chest pain or shortness breath On 03/01/2019 patient alert and oriented 3. Patient is currently on room air. She has been switched to by mouth Lasix and Lopressor has been decreased to 12 hypotension. Patient remains on entresto. We'll continue to monitor blood pressure throughout stay. At this time patient denies chest pain or shortness breath. Patient denies nausea vomiting or diarrhea. Patient denies any urinary burning or frequency. On 03/02/2019 patient's alert and oriented 3. Patient's blood pressure has improved. She has been cleared for discharge from cardiology standpoint. Patient will be discharged home on Entresto. Lasix has been decreased to 40 mg daily. At this time patient is sitting comfortably in chair in room air. Patient denies nausea vomiting or diarrhea. Patient denies any urinary burning or frequency. Patient denies chest pain or shortness breath. Patient to follow-up with her PCP. Patient also to follow up with cardiology and pulmonary services for further management of chronic conditions. I performed an examination of the patient and discussed their management with the Nurse Practitioner. I have reviewed the Nurse Practitioner's notes and agree with the documented findings and plan of care Patient Condition at Discharge: Stable Plan - Discharge Summary New Discharge Prescriptions: New Aspirin 81 mg PO DAILY 30 Days #30 chew Sacubitril/Valsartan [Entresto 24 mg-26 mg Tablet] 1 each PO BID 60 Days #30 tablet Furosemide [Lasix] 40 mg PO DAILY 30 Days #30 tab Azithromycin [Zithromax] 500 mg PO DAILY 5 Days #5 tab methylPREDNISolone Dose Pack [Medrol Dose Pack] 4 mg PO DIRECTED #21 package Continue Budesonide-Formot 160-4.5 Mcg [Symbicort 160-4.5 Mcg Inhaler] 2 puff INHALATION RT-BID Sertraline [Zoloft] 200 mg PO AC-SUPPER Montelukast [Singulair] 10 mg PO HS Metoprolol Succinate (ER) [Toprol XL] 25 mg PO DAILY Levothyroxine Sodium [Synthroid] 100 mcg PO DAILY Albuterol Sulfate [Proair Hfa] 2 puff INHALATION RT-Q6H PRN PRN Reason: Shortness Of Breath Ranitidine HCl [Zantac] 150 mg PO HS PRN PRN Reason: Heartburn Acyclovir [Zovirax] 1 applic TOPICAL 5XD PRN PRN Reason: Cold Sores Acyclovir 400 mg PO DAILY PRN PRN Reason: Cold Sores Cetirizine HCl [Zyrtec] 10 mg PO HS PRN PRN Reason: Allergy Symptoms ALPRAZolam [Xanax] 0.5 mg PO Q8H PRN PRN Reason: Anxiety Omeprazole 40 mg PO BID Ergocalciferol [Vitamin D2 (DRISDOL)] 50,000 unit PO SA Ipratropium-Albuterol Nebulize [Duoneb 0.5 mg-3 mg/3 ml Soln] 3 ml INHALATION RT-QID ampul.neb Potassium Chloride [K-Tab ER] 10 meq PO DAILY Spironolactone [Aldactone] 25 mg PO HS ARIPiprazole [Abilify] 5 mg PO DAILY Ondansetron [Zofran] 1 tab PO Q6HR PRN PRN Reason: Nausea Simvastatin [Zocor] 40 mg PO HS #30 tab HYDROcodone/APAP 7.5-325MG [[place] 7.5-325] 1 tab PO Q6H PRN PRN Reason: Pain Discontinued Furosemide [Lasix] 40 mg PO BID@0900,1600 #60 tab Discharge Medication List Budesonide-Formot 160-4.5 Mcg [Symbicort 160-4.5 Mcg Inhaler] 2 puff INHALATION RT-BID 10/05/16 [History] Levothyroxine Sodium [Synthroid] 100 mcg PO DAILY 10/05/16 [History] Metoprolol Succinate (ER) [Toprol XL] 25 mg PO DAILY 10/05/16 [History] Montelukast [Singulair] 10 mg PO HS 10/05/16 [History] Sertraline [Zoloft] 200 mg PO AC-SUPPER 10/05/16 [History] Albuterol Sulfate [Proair Hfa] 2 puff INHALATION RT-Q6H PRN 04/06/17 [History] Acyclovir 400 mg PO DAILY PRN 05/13/17 [History] Acyclovir [Zovirax] 1 applic TOPICAL 5XD PRN 05/13/17 [History] Cetirizine HCl [Zyrtec] 10 mg PO HS PRN 05/13/17 [History] Ranitidine HCl [Zantac] 150 mg PO HS PRN 05/13/17 [History] ALPRAZolam [Xanax] 0.5 mg PO Q8H PRN 06/19/18 [History] Ergocalciferol [Vitamin D2 (DRISDOL)] 50,000 unit PO SA 06/19/18 [History] Omeprazole 40 mg PO BID 06/19/18 [History] Ipratropium-Albuterol Nebulize [Duoneb 0.5 mg-3 mg/3 ml Soln] 3 ml INHALATION RT-QID ampul.neb 07/09/18 [Rx] Potassium Chloride [K-Tab ER] 10 meq PO DAILY 09/13/18 [History] Spironolactone [Aldactone] 25 mg PO HS 09/13/18 [History] ARIPiprazole [Abilify] 5 mg PO DAILY 01/23/19 [History] Ondansetron [Zofran] 1 tab PO Q6HR PRN 01/24/19 [History] Simvastatin [Zocor] 40 mg PO HS #30 tab 01/29/19 [Rx] HYDROcodone/APAP 7.5-325MG [[place] 7.5-325] 1 tab PO Q6H PRN 02/25/19 [History] Aspirin 81 mg PO DAILY 30 Days #30 chew 03/02/19 [Rx] Azithromycin [Zithromax] 500 mg PO DAILY 5 Days #5 tab 03/02/19 [Rx] Furosemide [Lasix] 40 mg PO DAILY 30 Days #30 tab 03/02/19 [Rx] Sacubitril/Valsartan [Entresto 24 mg-26 mg Tablet] 1 each PO BID 60 Days #30 tablet 03/02/19 [Rx] methylPREDNISolone Dose Pack [Medrol Dose Pack] 4 mg PO DIRECTED #21 package 03/02/19 [Rx] Follow up Appointment(s)/Referral(s): Amber Jasso MD [STAFF PHYSICIAN] - 03/12/19 2:00 pm Walt Valadez DO [Doctor of Osteopathic Medicine] - 1 Week [facility], [NON-STAFF] - As Needed Michelle Naqvi MD [Primary Care Provider] - 03/02/19 10:45 am (Tuesday) Patient Instructions/Handouts: Heart Failure (DC), Low-Sodium Diet (DC), Chronic Lung Disease and Infection Prevention (DC) Activity/Diet/Wound Care/Special Instructions: pt qualifies for $10/mo Entresto-coupon provided Discharge Disposition: HOME SELF-CARE
[2019-03-02 13:59] VITALS: PULSE 86
[2019-03-03] MEDS ORDERED: ERGOCALCIFEROL 50,000 UNIT CAP PO SCH (12:00)
--- NOTE | 2019-03-06 12:37 | CDI ---
Documentation Clarification Form Date: 03/06/19 From: Ivette Trent Catherine Aguilar, [employer] Hours-8:30 am & 5 pm MAbel Admit Date: 02/25/2019 3:11:00 PM Patient Name: Thelma Clark Visit Number: [id number] Discharge Date: 03/02/2019 3:09:00 PM ATTENTION: The Clinical Documentation Specialists (CDI) and [facility] Coding Staff appreciate your assistance in clarifying documentation. Please respond to the clarification below the line at the bottom and electronically sign. The CDI & [facility] Coding staff will review the response and follow-up if needed. Please note: Queries are made part of the Legal Health Record. If you have any questions, please contact the author of this message via ITS. Hypotension is documented in the 02/28 PN - "Hypotension. Patient was started on Entresto per cardiology. Blood pressure dropped into the 80s and 90s. cardiology will continue to monitor. Entresto started on 02/27. " 03/01 PN - She has been switched to by mouth Lasix and Lopressor has been decreased to 12. Discharge Summary states: blood pressure does appear to be improving we'll continue to monitor. History/Risk Factors: HTN, COPD, acute on chronic diastolic CHF, cardiomyopathy Patients B/P: 02/26 - 9667; 02/27 - 99/62, 111/65, 108/56, 109/66, 115/58, 85/52, 90/48, 92/56, 87/51, 91/50, 88/49, 106/58, 101/49;; 03/01 - 89/43, 94/49, 112/76, 114/49, 91/49, 95/53, 100/57, 93/55, 97/50, 94/61, 83/53 In your professional opinion, can you please specify the etiology of the hypotension if known? Was hypotension due to drugs (Entrestio and Lopressor) Other Condition, please specify Unable to determine Hypotension due to medications and chest on Lopressor, patient was asymptomatic MTDD
== END 2019-03-02 15:09 | disposition home health service (06) | DRG 292 ==
LOC: EC 13:21 → 3SCARD 15:11
PROVIDERS: ADMIT Internal Medicine; ATTEND Internal Medicine
DX: I11.0 Hypertensive heart disease with heart failure (principal); J44.1 Chronic obstructive pulmonary disease with (acute) exacerbation; J44.0 Chronic obstructive pulmonary disease with (acute) lower respiratory infection; I50.33 Acute on chronic diastolic (congestive) heart failure; I95.9 Hypotension, unspecified; I42.9 Cardiomyopathy, unspecified; J20.9 Acute bronchitis, unspecified; K21.9 Gastro-esophageal reflux disease without esophagitis; M19.90 Unspecified osteoarthritis, unspecified site; G47.33 Obstructive sleep apnea (adult) (pediatric); F32.9 Major depressive disorder, single episode, unspecified; F41.9 Anxiety disorder, unspecified; M48.54XS Collapsed vertebra, not elsewhere classified, thoracic region, sequela of fracture; I44.7 Left bundle-branch block, unspecified; E03.9 Hypothyroidism, unspecified; E78.5 Hyperlipidemia, unspecified; I35.1 Nonrheumatic aortic (valve) insufficiency; K44.9 Diaphragmatic hernia without obstruction or gangrene; M54.9 Dorsalgia, unspecified; M81.0 Age-related osteoporosis without current pathological fracture; E66.9 Obesity, unspecified; Z68.30 Body mass index [BMI] 30.0-30.9, adult; Z79.51 Long term (current) use of inhaled steroids; Z79.890 Hormone replacement therapy; Z79.899 Other long term (current) drug therapy; Z91.19 Patient's noncompliance with other medical treatment and regimen; Z85.71 Personal history of Hodgkin lymphoma; Z85.528 Personal history of other malignant neoplasm of kidney; Z87.01 Personal history of pneumonia (recurrent); Z90.5 Acquired absence of kidney; Z92.3 Personal history of irradiation; Z92.21 Personal history of antineoplastic chemotherapy; Z85.41 Personal history of malignant neoplasm of cervix uteri; Z90.710 Acquired absence of both cervix and uterus; Z98.891 History of uterine scar from previous surgery; Z85.3 Personal history of malignant neoplasm of breast; Z90.12 Acquired absence of left breast and nipple; Z90.81 Acquired absence of spleen; Z98.42 Cataract extraction status, left eye; Z98.41 Cataract extraction status, right eye; Z96.1 Presence of intraocular lens; Z87.891 Personal history of nicotine dependence; Z82.49 Family history of ischemic heart disease and other diseases of the circulatory system; Z82.61 Family history of arthritis; Z83.511 Family history of glaucoma; Z82.0 Family history of epilepsy and other diseases of the nervous system; Z83.79 Family history of other diseases of the digestive system; Z81.1 Family history of alcohol abuse and dependence
CPT/HCPCS: 36415; 71046; 80053; 83880; 84484; 85025; 85610; 85730; 87502; 93005; 93306; 94640; 94760; 96374; 96375; 99285

== ENCOUNTER → 2019-03-19 | Outpatient (CLI) | payer BC ==
[2019-03-20 01:51] LABS: Anion Gap 8.4 mmol/L (4.00-12.00); Calcium 9.2 mg/dL (8.7-10.3); Carbon Dioxide 27.6 mmol/L (21.6-31.8); Potassium 4.5 mmol/L (3.5-5.5)
== END ==
LOC: LABWHC1 15:10
PROVIDERS: ATTEND Nurse Practitioner Adult Health
DX: I42.8 Other cardiomyopathies (principal)
CPT/HCPCS: 36415; 80048

== ENCOUNTER → 2019-03-19 | Outpatient (CLI) | payer BC ==
--- NOTE | 2019-03-20 08:21 | MM ---
Reason for exam: additional evaluation requested from prior study. Last mammogram was performed 1 year and 6 months ago. History: Patient is postmenopausal, has history of breast cancer at age 49, and has history of other cancer at age 23. Family history of breast cancer in maternal grandmother at age 89. Silicone gel implant in the left breast, 2008. Retro-pectoral silicone gel implants in both breasts, June 2005. Mastectomy of the left breast, 2004. Malignant stereotactic core biopsy of the left breast, September 18, 2004. Core biopsy of the left breast. Implant Removal of the right breast. Took estrogen for 4 years. Took progesterone for 4 years. Physical Findings: Nurse did not find any significant physical abnormalities on exam. MG Diagnostic Mammo RT w CAD CC and MLO view(s) were taken of the right breast. Prior study comparison: September 05, 2017, right breast MG diagnostic mammo RT w CAD. March 03, 2017, MG screen liv unilateral w/cad. There are scattered fibroglandular densities. There is no discrete abnormality. No significant new findings when compared with previous films. These results were verbally communicated with the patient and result sheet given to the patient on 03/19/19. ASSESSMENT: Negative, BI-RAD 1 RECOMMENDATION: Follow-up diagnostic mammogram of the right breast in 1 year.
== END | disposition home or self-care (01) ==
LOC: RADMAMWWP 15:28
PROVIDERS: ATTEND Internal Medicine Hematology & Oncology
DX: Z08 Encounter for follow-up examination after completed treatment for malignant neoplasm (principal); Z85.3 Personal history of malignant neoplasm of breast
CPT/HCPCS: 77065

== ENCOUNTER 2019-04-27 14:33 | Inpatient (IN) | payer BC ==
[2019-04-27] MEDS ORDERED: SODIUM CHLORIDE 0.9% 2,000 ML IV STA (15:07)
[2019-04-27] MEDS ORDERED: SODIUM CHLORIDE 0.9% 1,000 ML IV STA (15:07)
[2019-04-27] MEDS ORDERED: ONDANSETRON 4 MG/2 ML VIAL IVP STA (15:07)
[2019-04-27] MEDS ORDERED: FAMOTIDINE 20 MG/2 ML VIAL IV STA (15:08)
--- NOTE | 2019-04-27 15:16 | ED ---
General Adult HPI - General Chief complaint: Nausea/Vomiting/Diarrhea Stated complaint: diarrhea Time Seen by Provider: 04/27/19 14:56 Source: patient, EMS, RN notes reviewed Mode of arrival: EMS Limitations: no limitations - History of Present Illness Initial comments: Patient is a pleasant 64-year-old female presenting to the emergency Department with complaints of diarrhea. Onset of symptoms was over 1 week ago. Patient is having diarrhea 3-4 times daily. Patient has nausea. No vomiting. Patient has had decreased oral intake. Patient does feel dehydrated. Patient denies any antibiotic use prior to onset of symptoms. Patient has occasional abdominal cramping that is mild otherwise no abdominal pain. No history of chronic diarrhea. Patient was in the hospital a couple months ago with congestive heart failure. - Related Data Home Medications Medication Instructions Recorded Confirmed Budesonide-Formot 160-4.5 Mcg 2 puff INHALATION RT-BID 10/05/16 04/27/19 [Symbicort 160-4.5 Mcg Inhaler] Levothyroxine Sodium [Synthroid] 100 mcg PO DAILY 10/05/16 04/27/19 Metoprolol Succinate (ER) [Toprol 25 mg PO DAILY 10/05/16 04/27/19 XL] Montelukast [Singulair] 10 mg PO HS 10/05/16 04/27/19 Sertraline [Zoloft] 200 mg PO AC-SUPPER 10/05/16 04/27/19 Albuterol Sulfate [Proair Hfa] 2 puff INHALATION RT-Q6H PRN 04/06/17 04/27/19 Cetirizine HCl [Zyrtec] 10 mg PO HS PRN 05/13/17 04/27/19 Ergocalciferol [Vitamin D2 50,000 unit PO SA 06/19/18 04/27/19 (DRISDOL)] Omeprazole 40 mg PO BID 06/19/18 04/27/19 Potassium Chloride [K-Tab ER] 10 meq PO DAILY 09/13/18 04/27/19 Spironolactone [Aldactone] 25 mg PO HS 09/13/18 04/27/19 ARIPiprazole [Abilify] 5 mg PO DAILY 01/23/19 04/27/19 Ondansetron [Zofran] 4 mg PO Q6HR PRN 01/24/19 04/27/19 HYDROcodone/APAP 7.5-325MG [[place] 1 tab PO Q6H PRN 02/25/19 04/27/19 7.5-325] ARIPiprazole [Abilify] 2 mg PO DAILY 04/27/19 04/27/19 Furosemide [Lasix] 40 mg PO BID 04/27/19 04/27/19 Teriparatide [Forteo] 20 mcg SQ DAILY 04/27/19 04/27/19 Previous Rx's Medication Instructions Recorded Ipratropium-Albuterol Nebulize 3 ml INHALATION RT-QID ampul.neb 07/09/18 [Duoneb 0.5 mg-3 mg/3 ml Soln] Aspirin 81 mg PO DAILY 30 Days #30 chew 03/02/19 Sacubitril/Valsartan [Entresto 24 1 each PO BID 60 Days #30 tablet 03/02/19 mg-26 mg Tablet] Allergies Allergy/AdvReac Type Severity Reaction Status Date / Time No Known Allergies Allergy Verified 04/27/19 16:59 Review of Systems ROS Statement: Those systems with pertinent positive or pertinent negative responses have been documented in the HPI. ROS Other: All systems not noted in ROS Statement are negative. Constitutional: Denies: fever Eyes: Denies: eye pain ENT: Denies: ear pain Respiratory: Denies: cough, dyspnea Endocrine: Reports: fatigue Gastrointestinal: Reports: as per HPI, nausea, diarrhea. Denies: vomiting Genitourinary: Denies: dysuria Musculoskeletal: Denies: back pain Skin: Denies: rash Neurological: Denies: weakness Past Medical History Past Medical History: Asthma, Cancer, Heart Failure, COPD, GERD/Reflux, Osteoar thritis (OA), Sleep Apnea/CPAP/BIPAP, Thyroid Disorder Additional Past Medical History / Comment(s): BOOP, cardiomyopathy, cardiac murmur, anemia, past multiple thoracic compression fractures with T8 being worse, back pain, osteoporosis, R rib fracture, Hodgkins Lymphoma status post chemo and radiation chest area in 1978; L Breast CA-status post mastectomy(sx only), R renal carcinoma with partial nephrectomy, cervical cancer with surgery, [place] with CPAP use, hypothyroid, hiatal hernia, sinus problems. History of Any Multi-Drug Resistant Organisms: None Reported Past Surgical History: Adenoidectomy, Breast Surgery, Section, Hysterectomy, Orthopedic Surgery, Tonsillectomy Additional Past Surgical History / Comment(s): Spleenectomy, laparotomy, colonoscopy, EGD, bilateral 5th toe surgery for spurs, L breast mastectomy with breast reconstruction, R breast implant since removed, bronchoscopy/lung bx, rt kidney partial nephrectomy, bilateral cataract removals with lens implants, [place]. Past Anesthesia/Blood Transfusion Reactions: No Reported Reaction Additional Past Anesthesia/Blood Transfusion Reaction / Comment(s): clausterphobia (mri's) Past Psychological History: Anxiety, Depression Smoking Status: Former smoker Past Alcohol Use History: None Reported Past Drug Use History: None Reported - Past Family History Mother Family Medical History: Osteoarthritis (OA) Additional Family Medical History / Comment(s): glaucoma Brother(s) Additional Family Medical History / Comment(s): MS Father Family Medical History: Liver Disease, Myocardial Infarction (MT) Additional Family Medical History / Comment(s): age 70 -mi, alcoholic General Exam Limitations: no limitations General appearance: alert, in no apparent distress Head exam: Present: atraumatic Eye exam: Present: normal appearance, PERRL ENT exam: Present: mucous membranes dry Neck exam: Present: normal inspection Respiratory exam: Present: normal lung sounds bilaterally Cardiovascular Exam: Present: regular rate, normal rhythm GI/Abdominal exam: Present: soft. Absent: distended, tenderness, guarding, rebound, rigid Extremities exam: Present: normal inspection. Absent: pedal edema, calf tenderness Neurological exam: Present: alert. Absent: motor sensory deficit Psychiatric exam: Present: normal affect, normal mood Skin exam: Present: normal color Course Vital Signs 04/27/19 04/27/19 04/27/19 14:50 15:10 15:20 Temperature 97.6 F Pulse Rate 76 76 75 Respiratory 20 19 20 Rate Blood Pressure 72/44 79/50 82/47 O2 Sat by Pulse 98 99 100 Oximetry 04/27/19 04/27/19 04/27/19 15:22 15:30 15:50 Temperature Pulse Rate 74 Respiratory 18 Rate Blood Pressure 76/47 76/47 78/49 O2 Sat by Pulse 99 91 L Oximetry 04/27/19 04/27/19 04/27/19 15:56 16:00 16:20 Temperature Pulse Rate 74 74 75 Respiratory 18 19 Rate Blood Pressure 113/83 113/83 115/97 O2 Sat by Pulse 98 97 97 Oximetry 04/27/19 04/27/19 04/27/19 17:00 17:10 17:20 Temperature Pulse Rate 114 H 111 H 108 H Respiratory 19 Rate Blood Pressure 80/56 61/47 65/42 O2 Sat by Pulse 95 96 95 Oximetry 04/27/19 04/27/19 17:40 17:50 Temperature Pulse Rate 125 H 78 Respiratory 19 Rate Blood Pressure 75/55 71/52 O2 Sat by Pulse Oximetry - Reevaluation(s) Reevaluation #1: 04/27/19 18:28 Blood pressure remains low now despite to have liters of IV fluids. Patient is starting to feel short of breath. Repeat chest x-rays concerning for congestive heart failure. Patient will need pressor support. Systolic blood pressure still 71. Case was discussed again with Dr. Naqvi. He does request admission to be to ICU. He does request consult with Dr. austin and cardiology. Dr. Salcedo has been paged covering for Dr. austin. Cardiac consult has been placed. 04/27/19 19:10 Case was also discussed with Dr. Salcedo, who will consult. He does feel patient's BOOP could be a component of this as well and does recommend adding steroids. Procedures - Central Line Placement Right SC Consent Obtained: verbal consent, written consent Patient Placed on Monitor/Pulse Ox: Yes MD Prep: mask, gown, gloves Central Line Prep: Chlorhexidine scrub Local Anesthesia Used: Lidocaine 1% Amount of Anesthesia Used (mls): 2 Complications: none, other (Unable to pass lying through guidewire.) Right Femoral Consent Obtained: verbal consent, written consent Patient Placed on Monitor/Pulse Ox: Yes MD Prep: mask, gown, gloves Central Line Prep: Chlorhexidine scrub Local Anesthesia Used: Lidocaine 1% Amount of Anesthesia Used (mls): 2 Central Line Lumen Inserted: triple Central Line Position: good blood return, all ports aspirated, flushed, capped, sutured in place with 3-0 nylon Dressing Applied: Tegaderm Patient Tolerated Procedure: well Complications: none Medical Decision Making - Medical Decision Making Patient reevaluated and is feeling somewhat better. Patient and family updated on results and plan. Blood pressure has improved following 1 L however has started to decrease again. Patient will be given a second liter and possibly a third liter if needed. Case was discussed in detail with Dr. Naqvi who is familiar with this patient and will admit. Nephrology will be placed on consult. - Lab Data Result diagrams: 04/27/19 15:14 04/27/19 15:14 Lab Results 04/27/19 04/27/19 Range/Units 15:14 15:14 WBC 12.3 H (3.8-10.6) k/uL RBC 3.90 (3.80-5.40) m/uL Hgb 10.4 L D (11.4-16.0) gm/dL Hct 32.2 L (34.0-46.0) % MCV 82.4 (80.0-100.0) fL MCH 26.6 (25.0-35.0) pg MCHC 32.3 (31.0-37.0) g/dL RDW 17.2 H (11.5-15.5) % Plt Count 530 H (150-450) k/uL Neutrophils % 77 % Lymphocytes % 15 % Monocytes % 6 % Eosinophils % 1 % Basophils % 0 % Neutrophils # 9.4 H (1.3-7.7) k/uL Lymphocytes # 1.8 (1.0-4.8) k/uL Monocytes # 0.8 (0-1.0) k/uL Eosinophils # 0.1 (0-0.7) k/uL Basophils # 0.0 (0-0.2) k/uL Anisocytosis Slight Sodium 132 L (137-145) mmol/L Potassium 5.4 H (3.5-5.1) mmol/L Chloride 97 L (98-107) mmol/L Carbon Dioxide 18 L (22-30) mmol/L Anion Gap 17 mmol/L BUN 115 H* (7-17) mg/dL Creatinine 5.66 H (0.52-1.04) mg/dL Est GFR (CKD-EPI)AfAm 8 (>60 ml/min/1.73 sqM) Est GFR (CKD-EPI)NonAf 7 (>60 ml/min/1.73 sqM) Glucose 90 (74-99) mg/dL Calcium 8.6 (8.4-10.2) mg/dL Total Bilirubin 0.5 (0.2-1.3) mg/dL AST 23 (14-36) U/L ALT 27 (9-52) U/L Alkaline Phosphatase 108 (38-126) U/L Total Protein 6.2 L (6.3-8.2) g/dL Albumin 3.6 (3.5-5.0) g/dL Critical Care Time Critical Care Time: Yes Total Critical Care Time: 50 Disposition Clinical Impression: Dehydration, Acute renal failure (ARF), Hypotension Disposition: ADMITTED IP TO THIS [facility] Condition: Critical Is patient prescribed a controlled substance at d/c from ED?: No Decision Time: 17:11
[2019-04-27 15:29] LABS: Anisocytosis Slight; Basophils % (A) 0 %; Eosinophils # (A) 0.1 k/uL (0-0.7); Eosinophils % (A) 1 %; HCT 32.2 % (34.0-46.0); Lymphocytes # (A) 1.8 k/uL (1.0-4.8); Lymphocytes % (A) 15 %; MCH 26.6 pg (25.0-35.0); MCHC 32.3 g/dL (31.0-37.0); MCV 82.4 fL (80.0-100.0); Mean Platelet Volume 7.3; Monocytes # (A) 0.8 k/uL (0-1.0); Monocytes % (A) 6 %; Neutrophils # (A) 9.4 k/uL (1.3-7.7); Neutrophils % (A) 77 %; Platelet Count 530 k/uL (150-450); RDW 17.2 % (11.5-15.5); WBC 12.3 k/uL (3.8-10.6)
[2019-04-27 15:34] LABS: Albumin 3.6 g/dL (3.5-5.0); Calcium 8.6 mg/dL (8.4-10.2); Potassium 5.4 mmol/L (3.5-5.1); Total Bilirubin 0.5 mg/dL (0.2-1.3); Total Protein 6.2 g/dL (6.3-8.2)
[2019-04-27 15:35] LABS: HGB 10.4 gm/dL (11.4-16.0)
--- NOTE | 2019-04-27 15:41 | XR ---
EXAMINATION TYPE: XR KUB DATE OF EXAM: 04/27/2019 COMPARISON: 09/28/2010 HISTORY: Vomiting TECHNIQUE: 2 views supine FINDINGS: There are multiple surgical clips in the abdomen. There is no sign of intestinal obstructio n or pneumoperitoneum. Fecal pattern is normal. There is no evidence of a mass. IMPRESSION: Nonacute abdomen. No change.
[2019-04-27] MEDS ORDERED: ONDANSETRON 4 MG/2 ML VIAL IVP PRN (17:11)
[2019-04-27] MEDS ORDERED: NALOXONE 0.4 MG/ML 1 ML VIAL IV PRN (17:11)
[2019-04-27] MEDS ORDERED: SODIUM CHLORIDE 0.9% 1,000 ML IV SCH (17:15)
--- NOTE | 2019-04-27 18:29 | XR ---
EXAMINATION TYPE: XR chest 1V portable DATE OF EXAM: 04/27/2019 COMPARISON: Today HISTORY: Short of breath TECHNIQUE: Single frontal view of the chest is obtained. FINDINGS: There is pulmonary alveolar edema. There is some blunting of costophrenic angles. There ar e calcified granulomata in the mediastinum at the pulmonary kelly. There are chest leads. IMPRESSION: Pulmonary edema consistent with congestive heart failure that is slightly worse than exa m this morning. Pleural effusions larger on the left side unchanged.
[2019-04-27] MEDS ORDERED: DOBUTamine DRIP 500 MG in DEXTROSE/WATER 1 250ML.BAG IV SCH (18:45)
[2019-04-27] MEDS ORDERED: methylPREDNISolone SOD SUCCI 125 MG/2 ML VIAL IV STA (19:07)
--- NOTE | 2019-04-27 19:37 | XR ---
EXAMINATION TYPE: XR chest 1V portable DATE OF EXAM: 04/27/2019 COMPARISON: 04/27/2019 HISTORY: Central line placement TECHNIQUE: Single frontal view of the chest is obtained. FINDINGS: There is pulmonary vascular congestion. There is some blunting of costophrenic angles. The re is old right side rib fracture. Thoracic aorta is atheromatous. There are chest leads. There is a large calcified granuloma in the mediastinum and pulmonary kelly.. IMPRESSION: Congestive heart failure and pulmonary edema unchanged. No venous catheter seen. No pneu mothorax.
[2019-04-27 21:24] VITALS: PULSE 89
[2019-04-27 21:34] VITALS: RESP 18; TEMP 97.7
[2019-04-27 22:00] LABS: Glucose,Whole Blood 89 mg/dL (75-99)
[2019-04-27] MEDS ORDERED: DEXTROSE 5% IN WATER 250 ML BAG IV ONE (22:00)
[2019-04-27] MEDS ORDERED: NOREPINEPHRINE 1 MG/ML 4 ML VIAL IV ONE (22:00)
[2019-04-27] MEDS ORDERED: SODIUM CHLORIDE 0.9% 1,000 ML BAG ONE (22:05)
[2019-04-27] MEDS ORDERED: EPINEPHrine 10 ML SYRINGE (0.1 MG/ML) ONE (22:05)
[2019-04-27] MEDS ORDERED: SUCCINYLCHOLINE CHLORIDE VIAL 200 MG/10 ML VIAL IV ONE (22:05)
[2019-04-27] MEDS ORDERED: CALCIUM CHLORIDE 100 MG/ML 10 ML SYRINGE ONE (22:05)
[2019-04-27] MEDS ORDERED: SODIUM BICARB 8.4% 50 ML SYR (1 MEQ/ML) ONE (22:05)
[2019-04-27] MEDS ORDERED: DEXTROSE 50% SYRINGE 50 ML IVP ONE (22:05)
[2019-04-27 23:15] LABS: Anisocytosis Slight; Basophils # (A) 0.1 k/uL (0-0.2); Basophils % (A) 0 %; Eosinophils # (A) 0.1 k/uL (0-0.7); Eosinophils % (A) 1 %; HCT 30.7 % (34.0-46.0); HGB 9.6 gm/dL (11.4-16.0); Hypochromasia Marked; Lymphocytes # (A) 3.6 k/uL (1.0-4.8); Lymphocytes % (A) 20 %; MCH 27.3 pg (25.0-35.0); MCHC 31.3 g/dL (31.0-37.0); MCV 87.1 fL (80.0-100.0); Mean Platelet Volume 7.9; Monocytes # (A) 0.3 k/uL (0-1.0); Monocytes % (A) 2 %; Neutrophils # (A) 14.1 k/uL (1.3-7.7); Neutrophils % (A) 77 %; Platelet Count 273 k/uL (150-450); RBC 3.52 m/uL (3.80-5.40); RDW 17.2 % (11.5-15.5); WBC 18.2 k/uL (3.8-10.6)
[2019-04-27 23:22] VITALS: BP 79/50
[2019-04-27 23:31] LABS: Calcium 8.9 mg/dL (8.4-10.2)
[2019-04-27 23:35] LABS: Magnesium 2.1 mg/dL (1.6-2.3); Potassium 5.4 mmol/L (3.5-5.1)
[2019-04-27 23:58] LABS: Creatine Kinase MB 0.7 ng/mL (0.0-2.4); Troponin I 0.02 ng/mL (0.000-0.034)
[2019-04-28] MEDS ORDERED: methylPREDNISolone SOD SUCCI 125 MG/2 ML VIAL IV SCH
[2019-04-28] MEDS ORDERED: PANTOPRAZOLE 40 MG/10 ML VIAL IV SCH (09:00)
--- NOTE | 2019-05-08 16:00 | P.HPIM ---
History of Present Illness H&P Date: 04/27/19 Chief Complaint: vomiting and Diarrhea Patient was not seen or examined during her admission by Dr. Naqvi. Information was obtained from ER report. Patient is a pleasant 64-year-old female presenting to the emergency Department with complaints of diarrhea. Onset of symptoms was over 1 week ago. Patient is having diarrhea 3-4 times daily. Patient has nausea. No vomiting. Patient has had decreased oral intake. Patient does feel dehydrated. Patient denies any antibiotic use prior to onset of symptoms. Patient has occasional abdominal cramping that is mild otherwise no abdominal pain. No history of chronic diarrhea. Patient was in the hospital a couple months ago with congestive heart failure. Patient was hypotensive despite receiving IV fluid bolus. She was having shortness of breath and Repeat chest x-rays concerning for congestive heart failure. Patient will need pressor support. Systolic blood pressure still 71. Case was discussed again with Dr. Naqvi. He does request admission to be to ICU. He does request consult with Dr. austin and cardiology. Dr. Salcedo has been paged covering for Dr. austin. Cardiac consult has been placed. She was also started on IV steroids for history of BOOP Past Medical History Past Medical History: Asthma, Cancer, Heart Failure, COPD, GERD/Reflux, Osteoarthritis (OA), Sleep Apnea/CPAP/BIPAP, Thyroid Disorder Additional Past Medical History / Comment(s): BOOP, cardiomyopathy, cardiac murmur, anemia, past multiple thoracic compression fractures with T8 being worse, back pain, osteoporosis, R rib fracture, Hodgkins Lymphoma status post chemo and radiation chest area in 1978; L Breast CA-status post mastectomy(sx only), R renal carcinoma with partial nephrectomy, cervical cancer with surgery, ASHKAN with CPAP use, hypothyroid, hiatal hernia, sinus problems. History of Any Multi-Drug Resistant Organisms: None Reported Past Surgical History: Adenoidectomy, Breast Surgery, Section, Hy sterectomy, Orthopedic Surgery, Tonsillectomy Additional Past Surgical History / Comment(s): Spleenectomy, laparotomy, colonoscopy, EGD, bilateral 5th toe surgery for spurs, L breast mastectomy with breast reconstruction, R breast implant since removed, bronchoscopy/lung bx, rt kidney partial nephrectomy, bilateral cataract removals with lens implants, ALDEN. Past Anesthesia/Blood Transfusion Reactions: No Reported Reaction Additional Past Anesthesia/Blood Transfusion Reaction / Comment(s): clausterphobia (mri's) Past Psychological History: Anxiety, Depression Smoking Status: Former smoker Past Alcohol Use History: None Reported Past Drug Use History: None Reported - Past Family History Mother Family Medical History: Osteoarthritis (OA) Additional Family Medical History / Comment(s): glaucoma Brother(s) Additional Family Medical History / Comment(s): MS Father Family Medical History: Liver Disease, Myocardial Infarction (SD) Additional Family Medical History / Comment(s): age 70 -mi, alcoholic Medications and Allergies Home Medications Medication Instructions Recorded Confirmed Type Budesonide-Formot 160-4.5 Mcg 2 puff INHALATION RT-BID 10/05/16 04/27/19 History [Symbicort 160-4.5 Mcg Inhaler] Levothyroxine Sodium [Synthroid] 100 mcg PO DAILY 10/05/16 04/27/19 History Metoprolol Succinate (ER) [Toprol 25 mg PO DAILY 10/05/16 04/27/19 History XL] Montelukast [Singulair] 10 mg PO HS 10/05/16 04/27/19 History Sertraline [Zoloft] 200 mg PO AC-SUPPER 10/05/16 04/27/19 History Albuterol Sulfate [Proair Hfa] 2 puff INHALATION RT-Q6H PRN 04/06/17 04/27/19 History Cetirizine HCl [Zyrtec] 10 mg PO HS PRN 05/13/17 04/27/19 History Ergocalciferol [Vitamin D2 50,000 unit PO SA 06/19/18 04/27/19 History (DRISDOL)] Omeprazole 40 mg PO BID 06/19/18 04/27/19 History Ipratropium-Albuterol Nebulize 3 ml INHALATION RT-QID ampul.neb 07/09/18 04/27/19 Rx [Duoneb 0.5 mg-3 mg/3 ml Soln] Potassium Chloride [K-Tab ER] 10 meq PO DAILY 09/13/18 04/27/19 History Spironolactone [Aldactone] 25 mg PO HS 09/13/18 04/27/19 History ARIPiprazole [Abilify] 5 mg PO DAILY 01/23/19 04/27/19 History Ondansetron [Zofran] 4 mg PO Q6HR PRN 01/24/19 04/27/19 History HYDROcodone/APAP 7.5-325MG [[place] 1 tab PO Q6H PRN 02/25/19 04/27/19 History 7.5-325] Aspirin 81 mg PO DAILY 30 Days #30 chew 03/02/19 04/27/19 Rx Sacubitril/Valsartan [Entresto 24 1 each PO BID 60 Days #30 tablet 03/02/19 04/27/19 Rx mg-26 mg Tablet] ARIPiprazole [Abilify] 2 mg PO DAILY 04/27/19 04/27/19 History Furosemide [Lasix] 40 mg PO BID 04/27/19 04/27/19 History Teriparatide [Forteo] 20 mcg SQ DAILY 04/27/19 04/27/19 History Allergies Allergy/AdvReac Type Severity Reaction Status Date / Time No Known Allergies Allergy Verified 04/27/19 16:59 Physical Exam Patient was not seen or examined during her admission Results CBC & Chem 7: 04/27/19 22:50 04/27/19 22:50 Assessment and Plan Assessment: 1. Cardiac arrest requiring CPR and intubation 1. Acute Renal Failure : severly elevated Cr. likely secondary to Diarrhea and vomiting. 2. Sepsis with septic shock 3. Diarrhea and vomiting exact etiology unclear 4. Acute on chronic diastolic CHF exacerbation 5. History of Bronchiolitis obliterans organizing pneumonia 6. History of Hodgkins Lymphoma Note patient was not seen or examined before she .
--- NOTE | 2019-05-08 16:08 | P.DS ---
Providers Date of admission: 04/27/19 17:12 Expected date of discharge: 04/27/19 Attending physician: Michelle Naqvi Consults: 04/27/19 17:12 Consult Physician Urgent Consulting Provider: Herminio Blankenship Consult Reason/Comments: arf Do you want consulting provider notified?: Yes 04/27/19 18:25 Consult Physician Urgent Consulting Provider: Socorro Mcleod Consult Reason/Comments: chf Do you want consulting provider notified?: Yes 04/27/19 18:27 Consult Physician Stat Consulting Provider: Makayla Salcedo Consult Reason/Comments: critical care Do you want consulting provider notified?: Yes Primary care physician: Michelle Naqvi [place] [facility] Course: Summary Preliminary cause of is cardiac and respiratory arrest with seizure 1. Cardiac and Respiratory arrest requiring CPR 2. Acute Renal Failure : severly elevated Cr. likely secondary to Diarrhea and vomiting. 3. Sepsis with septic shock 4. Diarrhea and vomiting exact etiology unclear 5. Acute on chronic diastolic CHF exacerbation 6. History of Bronchiolitis obliterans organizing pneumonia 7. History of Hodgkins Lymphoma Hospital course Patient was not seen or examined during her admission by Dr. Naqvi. Information was obtained from ER report. Patient is a pleasant 64-year-old female presenting to the emergency Department with complaints of diarrhea. Onset of symptoms was over 1 week ago. Patient is having diarrhea 3-4 times daily. Patient has nausea. No vomiting. Patient has had decreased oral intake. Patient does feel dehydrated. Patient denies any antibiotic use prior to onset of symptoms. Patient has occasional abdominal cramping that is mild otherwise no abdominal pain. No history of chronic diarrhea. Patient was in the hospital a couple months ago with congestive heart failure. Patient was hypotensive despite receiving IV fluid bolus. She was having shortness of breath and Repeat chest x-rays concerning for congestive heart failure. Patient will need pressor support. Systolic blood pressure still 71. Case was discussed again with Dr. Naqvi. He does request admission to be to ICU. He does request consult with Dr. austin and cardiology. Dr. Salcedo has been paged covering for Dr. austin. Cardiac consult has been placed. She was also started on IV steroids for history of BOOP At 2155 Pt had seizure with respiratory arrest and code was called at 2158. Code team arrived by [address] Jarvis. Family notified at 2202. Code terminated at 230 per wishes of family. Time of [address] Jarvis at bedside. Next of Kin is daughter Marjorie Mancuso, and presented at bedside. No autopsy request, and [facility] requested. GOL called at 2350, with permission to release body. [employer] contacted at 0111, no case requested and [facility] Please see code sheet for further information. Please note that patient before she was seen or examined. All information was obtained from the chart. Patient Condition at Discharge: Critical Plan - Discharge Summary New Discharge Prescriptions: No Action Budesonide-Formot 160-4.5 Mcg [Symbicort 160-4.5 Mcg Inhaler] 2 puff INHALATION RT-BID Sertraline [Zoloft] 200 mg PO AC-SUPPER Montelukast [Singulair] 10 mg PO HS Metoprolol Succinate (ER) [Toprol XL] 25 mg PO DAILY Levothyroxine Sodium [Synthroid] 100 mcg PO DAILY Albuterol Sulfate [Proair Hfa] 2 puff INHALATION RT-Q6H PRN PRN Reason: Shortness Of Breath Cetirizine HCl [Zyrtec] 10 mg PO HS PRN PRN Reason: Allergy Symptoms Omeprazole 40 mg PO BID Ergocalciferol [Vitamin D2 (DRISDOL)] 50,000 unit PO SA Ipratropium-Albuterol Nebulize [Duoneb 0.5 mg-3 mg/3 ml Soln] 3 ml INHALATION RT-QID ampul.neb Potassium Chloride [K-Tab ER] 10 meq PO DAILY Spironolactone [Aldactone] 25 mg PO HS ARIPiprazole [Abilify] 5 mg PO DAILY Ondansetron [Zofran] 4 mg PO Q6HR PRN PRN Reason: Nausea HYDROcodone/APAP 7.5-325MG [[place] 7.5-325] 1 tab PO Q6H PRN PRN Reason: Pain Aspirin 81 mg PO DAILY 30 Days #30 chew Sacubitril/Valsartan [Entresto 24 mg-26 mg Tablet] 1 each PO BID 60 Days #30 tablet Furosemide [Lasix] 40 mg PO BID Teriparatide [Forteo] 20 mcg SQ DAILY ARIPiprazole [Abilify] 2 mg PO DAILY Discharge Medication List Budesonide-Formot 160-4.5 Mcg [Symbicort 160-4.5 Mcg Inhaler] 2 puff INHALATION RT-BID 10/05/16 [History] Levothyroxine Sodium [Synthroid] 100 mcg PO DAILY 10/05/16 [History] Metoprolol Succinate (ER) [Toprol XL] 25 mg PO DAILY 10/05/16 [History] Montelukast [Singulair] 10 mg PO HS 10/05/16 [History] Sertraline [Zoloft] 200 mg PO AC-SUPPER 10/05/16 [History] Albuterol Sulfate [Proair Hfa] 2 puff INHALATION RT-Q6H PRN 04/06/17 [History] Cetirizine HCl [Zyrtec] 10 mg PO HS PRN 05/13/17 [History] Ergocalciferol [Vitamin D2 (DRISDOL)] 50,000 unit PO SA 06/19/18 [History] Omeprazole 40 mg PO BID 06/19/18 [History] Ipratropium-Albuterol Nebulize [Duoneb 0.5 mg-3 mg/3 ml Soln] 3 ml INHALATION RT-QID ampul.neb 07/09/18 [Rx] Potassium Chloride [K-Tab ER] 10 meq PO DAILY 09/13/18 [History] Spironolactone [Aldactone] 25 mg PO HS 09/13/18 [History] ARIPiprazole [Abilify] 5 mg PO DAILY 01/23/19 [History] Ondansetron [Zofran] 4 mg PO Q6HR PRN 01/24/19 [History] HYDROcodone/APAP 7.5-325MG [[place] 7.5-325] 1 tab PO Q6H PRN 02/25/19 [History] Aspirin 81 mg PO DAILY 30 Days #30 chew 03/02/19 [Rx] Sacubitril/Valsartan [Entresto 24 mg-26 mg Tablet] 1 each PO BID 60 Days #30 tablet 03/02/19 [Rx] ARIPiprazole [Abilify] 2 mg PO DAILY 04/27/19 [History] Furosemide [Lasix] 40 mg PO BID 04/27/19 [History] Teriparatide [Forteo] 20 mcg SQ DAILY 04/27/19 [History] Follow up Appointment(s)/Referral(s): Michelle Naqvi MD [Primary Care Provider] - 1-2 days Discharge Disposition: - Preliminary Cause of Preliminary Cause of : cardiac and pulmonary arrest
== END 2019-04-28 03:25 | disposition expired | DRG 871 ==
LOC: EC 14:33 → 3NMEDONC 17:12 → 2SICU 18:25
PROVIDERS: ADMIT Internal Medicine; ATTEND Internal Medicine
PROC: 06HM33Z Insertion of Infusion Device into Right Femoral Vein, Percutaneous Approach (ICD-10-PCS; principal; 2019-04-27)
PROC: 5A19054 Respiratory Ventilation, Single, Nonmechanical (ICD-10-PCS; 2019-04-28)
DX: A41.9 Sepsis, unspecified organism (principal); R65.21 Severe sepsis with septic shock; I50.33 Acute on chronic diastolic (congestive) heart failure; N17.9 Acute kidney failure, unspecified; I42.9 Cardiomyopathy, unspecified; E86.0 Dehydration; E03.9 Hypothyroidism, unspecified; G47.33 Obstructive sleep apnea (adult) (pediatric); J44.9 Chronic obstructive pulmonary disease, unspecified; K21.9 Gastro-esophageal reflux disease without esophagitis; J84.89 Other specified interstitial pulmonary diseases; I46.9 Cardiac arrest, cause unspecified; R56.9 Unspecified convulsions; M81.0 Age-related osteoporosis without current pathological fracture; Z79.51 Long term (current) use of inhaled steroids; Z79.82 Long term (current) use of aspirin; Z79.890 Hormone replacement therapy; Z82.49 Family history of ischemic heart disease and other diseases of the circulatory system; Z85.3 Personal history of malignant neoplasm of breast; Z85.41 Personal history of malignant neoplasm of cervix uteri; Z85.528 Personal history of other malignant neoplasm of kidney; Z85.71 Personal history of Hodgkin lymphoma; Z87.891 Personal history of nicotine dependence; Z90.12 Acquired absence of left breast and nipple; Z90.5 Acquired absence of kidney; Z90.710 Acquired absence of both cervix and uterus; Z92.21 Personal history of antineoplastic chemotherapy; Z92.3 Personal history of irradiation; Z98.42 Cataract extraction status, left eye; Z98.41 Cataract extraction status, right eye; Z96.1 Presence of intraocular lens; Z98.82 Breast implant status; Z79.899 Other long term (current) drug therapy; F32.9 Major depressive disorder, single episode, unspecified; F41.9 Anxiety disorder, unspecified; Z90.81 Acquired absence of spleen; R19.7 Diarrhea, unspecified; R11.10 Vomiting, unspecified
CPT/HCPCS: 36415; 36556; 71045; 74018; 80048; 80053; 82550; 82553; 83605; 83735; 83880; 84484; 85025; 96361; 96365; 96366; 96374; 96375; 99291